=== PATIENT | female | born 1945 | race Caucasian/White ===

== ENCOUNTER 2021-05-01 10:40 | Emergency (ER) | payer OTHER ==
[2021-05-01] MEDS ORDERED: ACETAMINOPHEN 325 MG TABLET ONE (11:45)
[2021-05-01] MEDS ORDERED: IBUPROFEN 400 MG TAB ONE (11:46)
--- NOTE | 2021-05-01 12:25 | RAD REPORT ---
EXAM DESCRIPTION: RAD - Knee Left 3 View - 05/01/2021 11:46 am CLINICAL HISTORY: injury;Pain COMPARISON: No comparisons FINDINGS: Comminuted fracture of the patella is present. Small suprapatellar joint effusion is prese nt. No dislocation evident.
--- NOTE | 2021-05-01 12:41 | RAD REPORT ---
EXAM DESCRIPTION: RAD - Knee Right 3 View - 05/01/2021 12:34 pm CLINICAL HISTORY: fall;Pain COMPARISON: Knee Right 3 View dated 06/02/2019 FINDINGS: Osteopenia is noted. No acute fracture or dislocation is seen. No suprapatellar joint effu edgardo.
--- NOTE | 2021-05-01 12:57 | RAD REPORT ---
EXAM DESCRIPTION: CT - Knee Left Wo Con - 05/01/2021 12:40 pm CLINICAL HISTORY: Trip and fall, knee pain, abnormal plain films COMPARISON: Knee Left 3 View dated 05/01/2021 TECHNIQUE: Axial noncontrast 2 millimeter thick images of the left knee obtained with sagittal and c oronal reformatted images generated and reviewed. All CT scans are performed using dose optimization technique as appropriate and may include automate d exposure control or mA/KV adjustment according to patient size. FINDINGS: Femur, tibia and fibula are intact. Comminuted patella fracture is present. There are 5-6 medium to large patella fracture fragments with innumerable small or punctate fracture fragments along the multiple fracture planes that traverse th e patella. Distraction along the fracture planes is 2-4 mm. No large distracted fracture fragment. Pa tella tendon and quadriceps tendons appear intact. There is a large joint effusion or hemarthrosis. C ontusion and edema changes are seen the anterior to the patella fracture fragments. IMPRESSION: Comminuted patella fracture with 5-6 medium to large sized patella fracture fragments wi th numerous punctate fracture fragments along the multiple fracture planes. Large joint effusion or hemarthrosis. Femur, tibia and fibula are intact.
--- NOTE | 2021-05-01 13:19 | EDPHYS ---
Physician Documentation [facility] Name: Alba Kaur Age: 75 yrs Sex: Female : 1945 Arrival Date: 05/01/2021 Time: 10:54 Bed 15 Private MD: ED Physician Teo Fatima HPI: 05/01 11:30 This 75 yrs old Female presents to ER via EMS with complaints of Knee Injury. cp 11:30 The patient presents with decreased range of motion, an injury, pain, that is acute. cp The complaints affect the left knee. Context: resulted from the patient tripping, over "crate" at work, the patient is not able to bear weight, must have assistance, Problem is a result from a previous injury: No. Onset: The symptoms/episode began/occurred this morning. 11:30 Associated signs and symptoms: Pertinent negatives calf tenderness, fever, numbness, cp warmth, LOC, syncope. Patient reports trip and fall at work this morning over "crate" on ground. Patient reports landing on knees but left knee took most of force. Patient reports unable to bend and/or bear weight on left knee. Historical: - Allergies: 13:44 No Known Allergies; bp - Home Meds: 13:44 metformin 1,000 mg Oral tab 1 tab 2 times per day [Active]; losartan 50 mg oral tab 1 bp tab once daily [Active]; venlafaxine oral [Active]; - PMHx: 13:44 Diabetes mellitus; Hypertensive disorder; Anxiety; bp - Immunization history:: Adult Immunizations up to date. - Social history:: Smoking status: Patient denies any tobacco usage or history of. ROS: 11:35 MS/extremity: Positive for decreased range of motion, pain, swelling, tenderness, of cp the left knee, Negative for deformity, paresthesias. 11:35 Constitutional: Negative for fever. cp 11:35 Neck: Negative for pain with movement, pain at rest. 11:35 Cardiovascular: Negative for chest pain, palpitations. 11:35 Respiratory: Negative for cough, shortness of breath, wheezing. 11:35 Abdomen/GI: Negative for abdominal pain, nausea, vomiting, and diarrhea. 11:35 Back: Negative for pain at rest, pain with movement. 11:35 Neuro: Negative for loss of consciousness, syncope, weakness. 11:35 All other systems are negative. Exam: 11:40 Constitutional: The patient appears in no acute distress, alert, awake, cp non-diaphoretic, non-toxic, well developed, well nourished, uncomfortable. 11:40 Head/Face: Normocephalic, atraumatic. cp 11:40 Neck: ROM/movement: is normal, is supple, without pain, no range of motions limitations. 11:40 Chest/axilla: Inspection: normal. 11:40 Cardiovascular: Rate: normal, Edema: is not appreciated. 11:40 Respiratory: the patient does not display signs of respiratory distress, Respirations: normal, no use of accessory muscles, no retractions, labored breathing, is not present. 11:40 Abdomen/GI: Inspection: abdomen appears normal, Palpation: abdomen is soft and non-tender, in all quadrants. 11:40 Musculoskeletal/extremity: Extremities: grossly normal except: noted in the left knee: abrasion, decreased ROM, pain, swelling, tenderness, noted in the right knee: mild general tenderness to palpation, no evidence of decreased ROM, swelling. 11:40 Neuro: Orientation: to person, place \\T\\ time. Mentation: is normal. Vital Signs: 10:55 BP 157 / 63; Pulse 96; Resp 16; Temp 98; Pulse Ox 98% ; Weight 68.04 kg; Height 5 ft. 9 bp in. (175.26 cm); 13:00 BP 109 / 85; Pulse 94; Resp 16; Pulse Ox 98% ; bp 13:45 BP 111 / 82; Pulse 88; Resp 18; Temp 97.9(O); Pulse Ox 99% on R/A; sl2 10:55 Body Mass Index 22.15 (68.04 kg, 175.26 cm) bp Procedures: 13:25 Splinting: Splint applied to left knee using knee immobilizer, applied by nurse. cp Examined by me, post splint application: neurovascular intact, Patient tolerated well. MDM: 10:56 Patient medically screened. pkl 11:30 Differential diagnosis: dislocation, closed fracture, contusion, abrasion. cp 13:10 Data reviewed: vital signs, nurses notes, radiologic studies, CT scan, plain films. cp 13:10 Test interpretation: by ED physician or midlevel provider: plain radiologic studies. cp 13:17 Counseling: I had a detailed discussion with the patient and/or guardian regarding: the cp historical points, exam findings, and any diagnostic results supporting the discharge/admit diagnosis, radiology results, the need for outpatient follow up, for definitive care, a orthopedic surgeon, to return to the emergency department if symptoms worsen or persist or if there are any questions or concerns that arise at home. 13:17 Response to treatment: the patient's symptoms have markedly improved after treatment, cp and as a result, I will discharge patient. 13:17 ED course: VSS. Patient reports pain improved with meds. Discussed results of radiology cp studies and need for f/u with ortho. Patient instructed to wear immobilizer and not extend left knee. Return to ED worsening symptoms. 05/01 11:25 Order name: XRAY Knee LEFT 3 view; Complete Time: 13:05 cp 05/01 12:05 Order name: Knee Left Wo Con; Complete Time: 13:05 EDMS 05/01 12:06 Order name: XRAY Knee RIGHT 3 view; Complete Time: 13:05 cp 05/01 11:59 Order name: Knee Immobilizer; Complete Time: 13:24 cp Administered Medications: 11:45 Drug: Ibuprofen 600 mg Route: PO; bp 13:24 Follow up: Response: Pain is decreased bp 11:45 Drug: Tylenol 650 mg Route: PO; bp 13:24 Follow up: Response: Pain is decreased bp Disposition: 13:30 Chart complete. cp Disposition Summary: 05/01/21 13:18 Discharge Ordered Location: Home cp Problem: new cp Symptoms: have improved cp Condition: Stable cp Diagnosis - Displaced comminuted fracture of left patella, initial encounter for closed fracturecp Followup: cp - With: Christos Barnett MD - When: 2 - 3 days - Reason: left patella fracture Discharge Instructions: - Discharge Summary Sheet cp - Patellar Fracture, Adult cp Forms: - Medication Reconciliation Form cp - Thank You Letter cp - Antibiotic Education cp - Prescription Opioid Use cp Prescriptions: - Ultracet 37.5-325 mg Oral Tablet - take 1 tablet by ORAL route every 6 hours - for up to 5 days; do not exceed 8 cp tablets per day.; 20 tablet; Refills: 0, Product Selection Permitted - Ibuprofen 800 mg Oral Tablet - take 1 tablet by ORAL route every 8 hours As needed take with food; 30 tablet; cp Refills: 0, Product Selection Permitted Signatures: Dispatcher [employer] EDMS Teo Fatima MD MD pkl Royce Lan PA PA Guillermo Nunes, RN RN bp Corrections: (The following items were deleted from the chart) 12:05 12:01 CT LEFT KNEE WO CONTRAST ordered. EDMS EDMS
--- NOTE | 2021-05-01 13:19 | ER ---
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 bp 10:55 Coronavirus screen: At this time, the client does not indicate any symptoms associated bp with coronavirus-19. Ebola Screen: No symptoms or risks identified at this time. Initial Sepsis Screen: Does the patient meet any 2 criteria? No. Patient's initial sepsis screen is negative. Does the patient have a suspected source of infection? No. Patient's initial sepsis screen is negative. Risk Assessment: Do you want to hurt yourself or someone else? Patient reports no desire to harm self or others. Onset of symptoms is unknown. 10:55 Method Of Arrival: EMS: [facility] bp 10:55 Acuity: FERNIE 3 bp Triage Assessment: 10:55 General: Appears in no apparent distress. uncomfortable, slender, Behavior is bp cooperative, appropriate for age, anxious. Pain: Complains of pain in left knee. EENT: No deficits noted. Neuro: No deficits noted. Cardiovascular: No deficits noted. Respiratory: No deficits noted. GI: No signs and/or symptoms were reported involving the gastrointestinal system. : No signs and/or symptoms were reported regarding the genitourinary system. Derm: No deficits noted. Musculoskeletal: Reports pain in left knee. Injury Description: Deformity sustained to left knee. Historical: - Allergies: 13:44 No Known Allergies; bp - Home Meds: 13:44 metformin 1,000 mg Oral tab 1 tab 2 times per day [Active]; losartan 50 mg oral tab 1 bp tab once daily [Active]; venlafaxine oral [Active]; - PMHx: 13:44 Diabetes mellitus; Hypertensive disorder; Anxiety; bp - Immunization history:: Adult Immunizations up to date. - Social history:: Smoking status: Patient denies any tobacco usage or history of. Screenin:00 Abuse screen: Denies threats or abuse. Denies injuries from another. Nutritional bp screening: No deficits noted. Tuberculosis screening: No symptoms or risk factors identified. Fall Risk None identified. Assessment: 10:55 General: SEE TRIAGE NOTE. bp 13:00 Reassessment: No changes from previously documented assessment. Patient and/or family bp updated on plan of care and expected duration. Pain level reassessed. ALL CURRENT ORDERS COMPLETED. Vital Signs: 10:55 BP 157 / 63; Pulse 96; Resp 16; Temp 98; Pulse Ox 98% ; Weight 68.04 kg; Height 5 ft. 9 bp in. (175.26 cm); 13:00 BP 109 / 85; Pulse 94; Resp 16; Pulse Ox 98% ; bp 13:45 BP 111 / 82; Pulse 88; Resp 18; Temp 97.9(O); Pulse Ox 99% on R/A; sl2 10:55 Body Mass Index 22.15 (68.04 kg, 175.26 cm) bp ED Course: 10:54 Patient arrived in ED. bp 10:55 Arm band placed on. bp 10:56 Teo Fatima MD is Attending Physician. pkl 10:56 Royce Lan PA is PHCP. cp 11:00 Patient has correct armband on for positive identification. Bed in low position. Call bp light in reach. Side rails up X2. 11:46 XRAY Knee LEFT 3 view In Process Unspecified. EDMS 12:10 Guillermo Kaur, RN is Primary Nurse. bp 12:34 XRAY Knee RIGHT 3 view In Process Unspecified. EDMS 12:40 Knee Left Wo Con In Process Unspecified. EDMS 13:00 Crutch training done. Knee immobilizer applied on left knee. bp 13:17 Christos Barnett MD is Referral Physician. cp 13:43 Triage completed. bp 14:16 No provider procedures requiring assistance completed. Patient did not have IV access sl2 during this emergency room visit. Administered Medications: 11:45 Drug: Ibuprofen 600 mg Route: PO; bp 13:24 Follow up: Response: Pain is decreased bp 11:45 Drug: Tylenol 650 mg Route: PO; bp 13:24 Follow up: Response: Pain is decreased bp Outcome: 13:18 Discharge ordered by . cp 14:16 Discharged to home via wheelchair, with crutches. sl2 14:16 Condition: stable 14:16 Discharge instructions given to patient, family, Instructed on discharge instructions, follow up and referral plans. medication usage, Demonstrated understanding of instructions, follow-up care, medications, Prescriptions given X 2. 14:18 Patient left the ED. sl2 Signatures: Dispatcher [employer] EDMS Teo Fatima MD MD pkl Page, Corey, PA PA cp Peltier, Brian, RN RN Kavita Byrd RN RN sl2
[2021-05-01 14:26] VITALS: TEMP 98; O2SAT 98
[2021-05-01 14:28] VITALS: BP 109/85
--- OUTSIDE RECORDS SUMMARY | 2021-05-05 18:03 | XMS REPORT | Continuity of Care Document ---
:1945 Author Organization [facility] t Address [address] [place] [address] Dr. [address] [place] [address] Care Team Providers Name Role Phone Sheldon ALVARADO, Mercedes Attending Clinician Doctor Unassigned, Name Attending Clinician Unavailable Mercedes BALDERAS Attending Clinician Unavailable Pob, Lab Main Attending Clinician Unavailable Kristi Cantu Attending Clinician Unavailable Annemarie DEGROOT, S Attending Clinician Kristi Cantu Admitting Clinician Unavailable Payers Payer Name Policy Type Policy Number Effective Date Expiration Date S ource Problems Condition Condition Condition Status Onset Resolution Last Treating Co mments Source Name Details Category Date Date Treatment Clinician Date Hypothyroi Hypothyroi Disease Active U nivers dism dism ity of (acquired) (acquired) [facility] Hypertensi Hy[facility]i [facility]lipid Hyperlipid Disease Active [facility] Diabetes Diabetes Disease Active [facility] Anxiety Anxiety Disease Active Univers [facility] Allergies, Adverse Reactions, Alerts Allergy Allergy Status Severity Reaction(s) Onset Inactive Treating Comm ents Source Name Type Date Date Clinician No Known DA Active U [facility] Allergie 07-10 00:00: [address] NO KNOWN Drug Active [facility] Social History Social Habit Start Date Stop Date Quantity Comments Source History SDVT University o f Alcohol Std Drinks [facility] History [facility] University o f Alcohol Binge [facility] Sex Assigned At [facility]it [facility] of [facility] Exposure to Unable to assess Univers ity of SARS-CoV-2 (event) [facility] Alcohol intake 2020-01-31 2020-01-31 Ex-drinker University 00:00:00 00:00:00 (finding) [facility] Cigarettes smoked 2020-01-31 2020-01-31 Univers ity of current (pack per 00:00:00 00:00:00 [facility]) - Reported Branch Tobacco use and 2020-01-31 2020-01-31 Never used Universit y of exposure 00:00:00 00:00:00 [facility] History SDOH 2019-06-03 2019-06-03 1 University o f Alcohol Frequency 00:00:00 00:00:00 [facility] History of tobacco 1961-06-23 2002-06-23 Cigarette Smoker University of use 00:00:00 00:00:00 [facility] Smoking Status Start Date Stop Date Source Former smoker 2020-01-31 00:00:00 2020-01-31 00:00:[address] [facility] Never smoker University [facility] Medications Ordered Filled Start Stop Current Ordering Indication Dosage Frequency Signature Comments Components Source Medication Medication Date Date Medication? Clinician (SIG) Name Name VENLAFAXINE 2019-06 Yes [id number] 37.5mg TAKE 1 Univers XR 37.5 mg 1-06 CAPSULE BY ity of 24 hr 00:00: MOUTH [place] capsule 00 DAILY WITH Medica l BREAKFAST. Branch levothyroxi Yes [id number] 88ug Take 1 Univers ne 88 mcg 8-14 tablet by ity o f tablet 00:00: mouth [place] 00 every Medical morning. Branch levothyroxi 2019-0 Yes [id number] 88ug Take 1 Univers ne 88 mcg 8-14 tablet by ity o f tablet 00:00: mouth [place] 00 every Medical morning. Branch levothyroxi Yes [id number] 88ug Take 1 Univers ne 88 mcg 8-14 tablet by ity o f tablet 00:00: mouth [place] 00 every Medical morning. Branch levothyroxi Yes [id number] 88ug Take 1 Univers ne 88 mcg 8-14 tablet by ity o f tablet 00:00: mouth [place] 00 every Medical morning. Branch levothyroxi 2020-0 Yes [id number] 88ug Take 1 Univers ne 88 mcg 8-14 tablet by ity o f tablet 00:00: mouth [place] 00 every Medical morning. Branch levothyroxi 2020-0 Yes [id number] 88ug Take 1 Univers ne 88 mcg 8-14 tablet by ity o f tablet 00:00: mouth [place] 00 every Medical morning. Branch metFORMIN 2020-0 Yes 1000mg Take 1,000 Univers 1,000 mg 8-10 mg by ity of tablet 16:04: mouth [address] [place] [address] ([facility]) Medical times [place] daily with meals. metFORMIN 2020-0 Yes 1000mg Take 1,000 Univers 1,000 mg 8-10 mg by ity of tablet 16:04: mouth [address] [place] [address] ([facility]) Medical times [place] daily with meals. metFORMIN 2020-0 Yes 1000mg Take 1,000 Univers 1,000 mg 8-10 mg by ity of tablet 16:04: mouth [address] [place] [address] ([facility]) Medical times [place] daily with meals. metFORMIN 2020-0 Yes 1000mg Take 1,000 Univers 1,000 mg 8-10 mg by ity of tablet 16:04: mouth [address] [place] [address] ([facility]) Medical times [place] daily with meals. metFORMIN 2020-0 Yes 1000mg Take 1,000 Univers 1,000 mg 8-10 mg by ity of tablet 16:04: [place] [id number] ([facility]) Medical times [place] daily with meals. metFORMIN 2020-0 Yes 1000mg Take 1,000 Univers 1,000 mg 8-10 mg by ity of tablet 16:04: mouth [address] [place] [address] ([facility]) Medical times [place] daily with meals. metFORMIN 2020-0 Yes 1000mg Take 1,000 Univers 1,000 mg 8-10 mg by ity of tablet 16:04: mouth [address] [place] [address] ([facility]) Medical times [place] daily with meals. metFORMIN 2020-0 Yes 1000mg Take 1,000 Univers 1,000 mg 8-10 mg by ity of tablet 16:04: mouth [address] [place] [address] ([facility]) Medical times [place] daily with meals. metFORMIN 2020-0 Yes 1000mg Take 1,000 Univers 1,000 mg 8-10 mg by ity of tablet 16:04: mouth [address] [place] [address] ([facility]) Medical times [place] daily with meals. metFORMIN 2020-0 Yes 1000mg Take 1,000 Univers 1,000 mg 8-10 mg by ity of tablet 16:04: mouth 2 [place] 26 (two) Medical times Branch daily with meals. carvediloL 2020-0 Yes 12.5mg Take 12.5 Univers 12.5 mg 8-10 mg by ity of tablet 15:53: mouth 2 [place] [address] (two) Medical times Branch daily with meals. carvediloL 2020-0 Yes 12.5mg Take 12.5 Univers 12.5 mg 8-10 mg by ity of tablet 15:53: mouth 2 [place] [address] (two) Medical times Branch daily with meals. carvediloL 2020-0 Yes 12.5mg Take 12.5 Univers 12.5 mg 8-10 mg by ity of tablet 15:53: mouth 2 [place] [address] (two) Medical times Branch daily with meals. carvediloL 2020-0 Yes 12.5mg Take 12.5 Univers 12.5 mg 8-10 mg by ity of tablet 15:53: mouth 2 [place] [address] (two) Medical times Branch daily with meals. carvediloL 2020-0 Yes 12.5mg Take 12.5 Univers 12.5 mg 8-10 mg by ity of tablet 15:53: mouth 2 [place] [address] (two) Medical times Branch daily with meals. carvediloL 2020-0 Yes 12.5mg Take 12.5 Univers 12.5 mg 8-10 mg by ity of tablet 15:53: mouth 2 [place] [address] (two) Medical times Branch daily with meals. carvediloL 2020-0 Yes 12.5mg Take 12.5 Univers 12.5 mg 8-10 mg by ity of tablet 15:53: mouth 2 [place] [address] (two) Medical times Branch daily with meals. carvediloL 2020-0 Yes 12.5mg Take 12.5 Univers 12.5 mg 8-10 mg by ity of tablet 15:53: mouth 2 [place] [address] (two) Medical times Branch daily with meals. carvediloL 2020-0 Yes 12.5mg Take 12.5 Univers 12.5 mg 8-10 mg by ity of tablet 15:53: mouth 2 [place] [address] (two) Medical times Branch daily with meals. carvediloL 2020-0 Yes 12.5mg Take 12.5 Univers 12.5 mg 8-10 mg by ity of tablet 15:53: mouth 2 [place] 33 (two) Medical times [place] daily with meals. venlafaxine 2020-0 Yes [id number] 37.5mg Take 1 Univers XR 37.5 mg 8-10 capsule by ity of 24 hr 00:00: mouth [place] capsule 00 daily with Medica l breakfast. [place] venlafaxine 2020-0 Yes [id number] 37.5mg Take 1 Univers XR 37.5 mg 8-10 capsule by ity of 24 hr 00:00: mouth [place] capsule 00 daily with Medica l breakfast. [place] venlafaxine 2020-0 Yes [id number] 37.5mg Take 1 Univers XR 37.5 mg 8-10 capsule by ity of 24 hr 00:00: mouth [place] capsule 00 daily with Medica l breakfast. [place] venlafaxine 2020-0 Yes [id number] 37.5mg Take 1 Univers XR 37.5 mg 8-10 capsule by ity of 24 hr 00:00: mouth [place] capsule 00 daily with Medica l breakfast. [place] venlafaxine 2020-0 Yes [id number] 37.5mg Take 1 Univers XR 37.5 mg 8-10 capsule by ity of 24 hr 00:00: mouth [place] capsule 00 daily with Medica l breakfast. [place] venlafaxine 2020-0 Yes [id number] 37.5mg Take 1 Univers XR 37.5 mg 8-10 capsule by ity of 24 hr 00:00: mouth [place] capsule 00 daily with Medica l breakfast. [place] venlafaxine 2020-0 Yes [id number] 37.5mg Take 1 Univers XR 37.5 mg 8-10 capsule by ity of 24 hr 00:00: mouth [place] capsule 00 daily with Medica l breakfast. [place] venlafaxine 2020-0 Yes [id number] 37.5mg Take 1 Univers XR 37.5 mg 8-10 capsule by ity of 24 hr 00:00: mouth [place] capsule 00 daily with Medica l breakfast. [place] venlafaxine 2020-0 2020- No [id number] 37.5mg Take 1 Univers XR 37.5 mg 8-10 11-06 capsule by it y of 24 hr 00:00: 00:00 mouth [place] capsule 00 :00 daily with Medica l breakfast. [place] mupirocin 2 2018- Yes Univer s % ointment 2-11 ity of 00:00: [place] 00 Medical Branch mupirocin 2 2019-1 Yes Univer s % ointment 2-11 ity of 00:00: [place] 00 Medical Branch mupirocin 2 2019-1 Yes Univer s % ointment 2-11 ity of 00:00: [place] 00 Medical Branch mupirocin 2 2019-1 Yes Univer s % ointment 2-11 ity of 00:00: [place] 00 Medical Branch mupirocin 2 2019-1 Yes Univer s % ointment 2-11 ity of 00:00: [place] 00 Medical Branch mupirocin 2 2019-1 Yes Univer s % ointment 2-11 ity of 00:00: [place] 00 Medical Branch mupirocin 2 2019-1 Yes Univer s % ointment 2-11 ity of 00:00: [place] 00 Medical Branch mupirocin 2 2019-1 Yes Univer s % ointment 2-11 ity of 00:00: [place] 00 Medical Branch mupirocin 2 2019-1 Yes Univer s % ointment 2-11 ity of 00:00: [place] 00 Medical Branch mupirocin 2 2019-1 Yes Univer s % ointment 2-11 ity of 00:00: [place] 00 Medical Branch mupirocin 2 2019-1 Yes Univer s % ointment 2-11 ity of 00:00: [place] 00 Medical Branch mupirocin 2 2019-1 Yes Univer s % ointment 2-11 ity of 00:00: [place] 00 Medical Branch mupirocin 2 2019-1 Yes Univer s % ointment 2-11 ity of 00:00: [place] 00 Medical Branch mupirocin 2 2019-1 Yes Univer s % ointment 2-11 ity of 00:00: [place] 00 Medical Branch mupirocin 2 2019-1 Yes Univer s % ointment 2-11 ity of 00:00: [place] 00 Medical Branch mupirocin 2 2019-1 Yes Univer s % ointment 2-11 ity of 00:00: [place] 00 Medical Branch mupirocin 2 2019-1 Yes Univer s % ointment 2-11 ity of 00:00: [place] 00 Medical Branch mupirocin 2 2019-1 Yes Univer s % ointment 2-11 ity of 00:00: [place] [facility] XARELTO 20 2018-06 Yes TK 1 T PO Un mark mg tablet 1-27 ONCE DAILY ity of 00:00: [facility] Branch XARELTO 20 2018-06 Yes TK 1 T PO Un mark mg tablet 1-27 ONCE DAILY ity of 00:00: [facility] XARELTO 2018-06 Yes TK 1 T PO Un mark mg tablet 1-27 ONCE DAILY ity of 00:00: [facility] XARELTO 2018-06 Yes TK 1 T PO Un mark mg tablet 1-27 ONCE DAILY ity of 00:00: [facility] Branch XARELTO 20 2018-06 Yes TK 1 T PO Un mark mg tablet 1-27 ONCE DAILY ity of 00:00: [facility] XARELTO 2018-06 Yes TK 1 T PO Un mark mg tablet 1-27 ONCE DAILY ity of 00:00: [facility] XARELTO 2018-06 Yes TK 1 T PO Un mark mg tablet 1-27 ONCE DAILY ity of 00:00: [facility] XARELTO 2018-06 Yes TK 1 T PO Un mark mg tablet 1-27 ONCE DAILY ity of 00:00: [facility] Branch XARELTO 2018-06 Yes TK 1 T PO Un mark mg tablet 1-27 ONCE DAILY ity of 00:00: [facility] XARELTO 2018-06 Yes TK 1 T PO Un mark mg tablet 1-27 ONCE DAILY ity of 00:00: [facility] Branch XARELTO 20 2018-06 Yes TK 1 T PO Un mark mg tablet 1-27 ONCE DAILY ity of 00:00: [facility] XARELTO 20 2018-06 Yes TK 1 T PO Un mark mg tablet 1-27 ONCE DAILY ity of 00:00: [facility] Branch XARELTO 20 2018-06 Yes TK 1 T PO Un mark mg tablet 1-27 ONCE DAILY ity of 00:00: [facility] XARELTO 20 2018-06 Yes TK 1 T PO Un mark mg tablet 1-27 ONCE DAILY ity of 00:00: [facility] Branch XARELTO 20 2019-1 Yes TK 1 T PO Un mark mg tablet 1-27 ONCE DAILY ity of 00:00: [facility] XARELTO 20 2018- Yes TK 1 T PO Un mark mg tablet 1-27 ONCE DAILY ity of 00:00: [facility] XARELTO 20 2018-06 Yes TK 1 T PO Un mark mg tablet 1-27 ONCE DAILY ity of 00:00: [facility] XARELTO 20 2018-06 Yes TK 1 T PO Un mark mg tablet 1-27 ONCE DAILY ity of 00:00: [facility] levothyroxi 2019- Yes TK 1 T PO U nivers ne 88 mcg 1-06 QAM IN THE ity of tablet 00:00: MORNING [address] simvastatin 2019- Yes TK 1 T PO U nivers 40 mg 1-06 QHS ity of tablet 00:00: [address] levothyroxi 2019- Yes TK 1 T PO U nivers ne 88 mcg 1-06 QAM IN THE ity of tablet 00:00: MORNING [address] simvastatin 2019- Yes TK 1 T PO U nivers 40 mg 1-06 QHS ity of tablet 00:00: [address] simvastatin 2019- Yes TK 1 T PO U nivers 40 mg 1-06 QHS ity of tablet 00:00: [address] levothyroxi 2019- Yes TK 1 T PO U nivers ne 88 mcg 1-06 QAM IN THE ity of tablet 00:00: MORNING [address] simvastatin 2019- Yes TK 1 T PO U nivers 40 mg 1-06 QHS ity of tablet 00:00: [address] simvastatin 2019- Yes TK 1 T PO U nivers 40 mg 1-06 QHS ity of tablet 00:00: [address] simvastatin 2019- Yes TK 1 T PO U nivers 40 mg 1-06 QHS ity of tablet 00:00: [address] levothyroxi 2019- Yes TK 1 T PO U nivers ne 88 mcg 1-06 QAM IN THE ity of tablet 00:00: MORNING [address] simvastatin 2019- Yes TK 1 T PO U nivers 40 mg 1-06 QHS ity of tablet 00:00: [address] simvastatin 2019- Yes TK 1 T PO U nivers 40 mg 1-06 QHS ity of tablet 00:00: [address] simvastatin 2019- Yes TK 1 T PO U nivers 40 mg 1-06 QHS ity of tablet 00:00: [address] simvastatin 2019- Yes TK 1 T PO U nivers 40 mg 1-06 QHS ity of tablet 00:00: [address] simvastatin 2019- Yes TK 1 T PO U nivers 40 mg 1-06 QHS ity of tablet 00:00: [address] levothyroxi 2019- Yes TK 1 T PO U nivers ne 88 mcg 1-06 QAM IN THE ity of tablet 00:00: MORNING [address] simvastatin 2019- Yes TK 1 T PO U nivers 40 mg 1-06 QHS ity of tablet 00:00: [address] levothyroxi 2018- Yes TK 1 T PO U nivers ne 88 mcg 1-06 QAM IN THE ity of tablet 00:00: MORNING [address] simvastatin 2019- Yes TK 1 T PO U nivers 40 mg 1-06 QHS ity of tablet 00:00: [address] levothyroxi 2019- Yes TK 1 T PO U nivers ne 88 mcg 1-06 QAM IN THE ity of tablet 00:00: MORNING [address] simvastatin 2019- Yes TK 1 T PO U nivers 40 mg 1-06 QHS ity of tablet 00:00: [address] levothyroxi 2019- Yes TK 1 T PO U nivers ne 88 mcg 1-06 QAM IN THE ity of tablet 00:00: MORNING [address] simvastatin 2019- Yes TK 1 T PO U nivers 40 mg 1-06 QHS ity of tablet 00:00: [address] levothyroxi 2019- Yes TK 1 T PO U nivers ne 88 mcg 1-06 QAM IN THE ity of tablet 00:00: MORNING [address] simvastatin 2019- Yes TK 1 T PO U nivers 40 mg 1-06 QHS ity of tablet 00:00: [address] levothyroxi 2019- Yes TK 1 T PO U nivers ne 88 mcg 1-06 QAM IN THE ity of tablet 00:00: MORNING [address] simvastatin 2019- Yes TK 1 T PO U nivers 40 mg 1-06 QHS ity of tablet 00:00: [place] [address] Medical Branch levothyroxi 2019- Yes TK 1 T PO U nivers ne 88 mcg 1-06 QAM IN THE ity of tablet 00:00: MORNING [address] levothyroxi 2019- Yes TK 1 T PO U nivers ne 88 mcg 1-06 QAM IN THE ity of tablet 00:00: MORNING [address] simvastatin 2019- Yes TK 1 T PO U nivers 40 mg 1-06 QHS ity of tablet 00:00: [address] levothyroxi 2019- 2020- No TK 1 T PO Univers ne 88 mcg 1-06 08-14 QAM IN THE ity of tablet 00:00: 00:00 MORNING [place] 00 :00 [facility] losartan 2019- Yes TK 1 T PO Univ ers 100 mg 0-10 Q D ity of tablet 00:00: [address] losartan 2019- Yes TK 1 T PO Univ ers 100 mg 0-10 Q D ity of tablet 00:00: [address] losartan 2019- Yes TK 1 T PO Univ ers 100 mg 0-10 Q D ity of tablet 00:00: [address] losartan 2019- Yes TK 1 T PO Univ ers 100 mg 0-10 Q D ity of tablet 00:00: [address] losartan 2019- Yes TK 1 T PO Univ ers 100 mg 0-10 Q D ity of tablet 00:00: [place] [address] Medical [place] losartan 2019- Yes TK 1 T PO Univ ers 100 mg 0-10 Q D ity of tablet 00:00: [place] [address] Medical Branch losartan 2019- Yes TK 1 T PO Univ ers 100 mg 0-10 Q D ity of tablet 00:00: [address] losartan 2019- Yes TK 1 T PO Univ ers 100 mg 0-10 Q D ity of tablet 00:00: [address] losartan 2019- Yes TK 1 T PO Univ ers 100 mg 0-10 Q D ity of tablet 00:00: [place] [address] Medical [place] losartan 2019- Yes TK 1 T PO Univ ers 100 mg 0-10 Q D ity of tablet 00:00: [place] 00 Medical Branch losartan 2019- Yes TK 1 T PO Univ ers 100 mg 0-10 Q D ity of tablet 00:00: [place] 00 Medical Branch losartan 2019- Yes TK 1 T PO Univ ers 100 mg 0-10 Q D ity of tablet 00:00: [place] Medical Branch losartan 2019- Yes TK 1 T PO Univ ers 100 mg 0-10 Q D ity of tablet 00:00: [place] Medical Branch losartan 2019- Yes TK 1 T PO Univ ers 100 mg 0-10 Q D ity of tablet 00:00: [place] Medical Branch losartan 2018- Yes TK 1 T PO Univ ers 100 mg 0-10 Q D ity of tablet 00:00: [place] Medical Branch losartan 2018- Yes TK 1 T PO Univ ers 100 mg 0-10 Q D ity of tablet 00:00: [place] Medical Branch losartan 2018- Yes TK 1 T PO Univ ers 100 mg 0-10 Q D ity of tablet 00:00: [place] Medical Branch losartan 2018- Yes TK 1 T PO Univ ers 100 mg 0-10 Q D ity of tablet 00:00: [place] Medical Branch metoprolol 2018- Yes TK 1 T PO Un mark succinate 0-02 QD ity of XL 100 mg 00:00: [place] 24 hr Medical tablet Branch metoprolol 2018- Yes TK 1 T PO Un mark succinate 0-02 QD ity of XL 100 mg 00:00: [place] 24 hr Medical tablet Branch metoprolol 2018- Yes TK 1 T PO Un mark succinate 0-02 QD ity of XL 100 mg 00:00: [place] 24 hr Medical tablet Branch metoprolol 2019- Yes TK 1 T PO Un mark succinate 0-02 QD ity of XL 100 mg 00:00: [place] 24 hr Medical tablet Branch metoprolol 2018- Yes TK 1 T PO Un mark succinate 0-02 QD ity of XL 100 mg 00:00: [place] 24 hr Medical tablet Branch metoprolol 2018- Yes TK 1 T PO Un mark succinate 0-02 QD ity of XL 100 mg 00:00: [place] 24 hr Medical tablet Branch metoprolol 2018-06 Yes TK 1 T PO Un mark succinate 0-02 QD ity of XL 100 mg 00:00: [place] 24 hr Medical tablet Branch metoprolol 2018-1 Yes TK 1 T PO Un mark succinate 0-02 QD ity of XL 100 mg 00:00: 24 hr Medical tablet Branch metoprolol 2019 Yes TK 1 T PO Un mark succinate 0-02 QD ity of XL 100 mg 00:00: [place] 24 hr Medical tablet Branch metoprolol 2018-06 Yes TK 1 T PO Un mark succinate 0-02 QD ity of XL 100 mg 00:00: [place] hr Medical tablet Branch metoprolol 2018-06 Yes TK 1 T PO Un mark succinate 0-02 QD ity of XL 100 mg 00:00: [place] 24 hr Medical tablet Branch metoprolol 2018-06 Yes TK 1 T PO Un mark succinate 0-02 QD ity of XL 100 mg 00:00: [place] hr Medical tablet Branch metoprolol 2018-06 Yes TK 1 T PO Un mark succinate 0-02 QD ity of XL 100 mg 00:00: [place] hr Medical tablet Branch metoprolol 2018-06 Yes TK 1 T PO Un mark succinate 0-02 QD ity of XL 100 mg 00:00: [place] hr Medical tablet Branch metoprolol 2018-06 Yes TK 1 T PO Un mark succinate 0-02 QD ity of XL 100 mg 00:00: [place] 24 hr Medical tablet Branch metoprolol 2018-06 Yes TK 1 T PO Un mark succinate 0-02 QD ity of XL 100 mg 00:00: [place] hr Medical tablet Branch metoprolol 2018-06 Yes TK 1 T PO Un mark succinate 0-02 QD ity of XL 100 mg 00:00: [place] hr Medical tablet Branch metoprolol 2018-06 Yes TK 1 T PO Un mark succinate 0-02 QD ity of XL 100 mg 00:00: [place] 24 hr Medical tablet Branch Vital Signs Vital Name Observation Time Observation Value Comments Source Systolic blood 2020-01-31 15:04:00 167 mm[Hg] Univer sity of pressure [facility] Diastolic blood 2020-01-31 15:04:00 86 mm[Hg] Unive rsity of pressure [facility] Heart rate 2020-01-31 15:03:00 82 /min [facility] Body temperature 2020-01-31 15:03:00 35.[address] [facility] Respiratory rate 2020-01-31 15:03:00 20 /min Univ ersity of [place] Medical [place] Body height 2020-01-31 15:03:00 175.3 cm Universi ty of [place] [facility] Body weight 2020-01-31 15:03:00 71.668 kg Universi ty of [place] [facility] BMI 2020-01-31 15:03:00 23.33 kg/m2 Universi ty of [facility] Branch Oxygen saturation in 2020-01-31 15:03:00 95 /min University of Arterial blood by [facility] Pulse oximetry Branch Systolic blood 2019-07-15 18:59:00 121 mm[Hg] Univer sity of pressure [facility] Diastolic blood 2019-07-15 18:59:00 67 mm[Hg] Unive rsity of pressure [facility] Heart rate 2019-07-15 18:59:00 80 /min Universi ty of [place] [facility] [place] Body height 2019-07-15 18:59:00 172.7 cm Universi ty of [place] Medical [place] Body weight 2019-07-15 18:59:00 73.936 kg Universi ty of [place] [facility] BMI 2019-07-15 18:59:00 24.78 kg/m2 Universi ty of [place] [facility] Systolic blood 2019-07-15 18:59:00 121 mm[Hg] Univer sity of pressure [facility] Branch Diastolic blood 2019-07-15 18:59:00 67 mm[Hg] Unive rsity of pressure [facility] Heart rate 2019-07-15 18:59:00 80 /min Universi ty of [facility] Body height 2019-07-15 18:59:00 172.7 cm Universi ty of [place] [facility] Body weight 2019-07-15 18:59:00 73.936 kg Universi ty of [place] [facility] BMI 2019-07-15 18:59:00 24.78 kg/m2 [facility] ty of [facility] Branch Procedures Procedure Date / Time Performing Clinician Source Performed REFERRAL- 2020-04-13 05:01:00 [facility] Name Medical Branch VITAMIN B12, LEVEL 2020-01-31 17:09:00 [facility]el Balderas [facility] 2020-01-31 17:09:00 Chantel Balderas [facility] ity of [place] A Medical Branch FREE T4 2020-01-31 17:09:00 Chantel Balderas [facility] A Medical Branch THYROID STIMULATING 2020-01-31 17:09:00 Chantel Balderas [facility] HORMONE Medical Branch COMP. METABOLIC PANEL 2020-01-31 17:09:00 Chantel Balderas [facility] ([id number]) A Medical Branch LIPID PANEL 2020-01-31 17:09:00 Chantel Balderas [facility] ([id number])(TOTAL A Medical Branch CHOLESTEROL, TRIGLYCERIDES, HDL) CBC WITH DIFF 2020-01-31 17:09:00 BalderasChantel manning [facility] Medical [place] GLYCOSYLATED HEMOGLOBIN 2020-01-31 17:09:00 Balderas, [facility] (A1C) [facility] HCV ANTIBODY 2020-01-31 17:09:00 Chantel Balderas [facility] Medical Branch HIGH SENSITIVITY CRP 2020-01-31 17:09:00 [facility] Branch HOMOCYSTEINE 2020-01-31 17:09:00 Chantel Balderas [facility] Medical Branch VITAMIN D, 25-OH 2020-01-31 17:09:00 Chantel Balderas [facility] Medical Branch FREE T3 2020-01-31 17:09:00 Chantel Balderas [facility] Medical [place] ASSIGNMENT OF BENEFITS 2020-01-31 16:43:42 Doctor Unassigned, No [facility] Name Medical Branch REFERRAL- 2019-08-26 06:01:00 Doctor Unassigned, No [facility] REQUEST/RESPONSE Name Medical Branch REFERRAL- 2019-08-05 06:01:00 Doctor Unassigned, No [facility] REQUEST/RESPONSE Name Medical Branch XR WRIST <3 VW RIGHT 2019-07-15 19:00:31 Alejandro Sharpe [facility] Medical [place] Encounters Start End Encounter Admission Attending Care Care Encounter Source Date/Time Date/Time Type Type Clinicians Facility Department ID 2020-11-14 2020-11-14 Outpatient [facility] [id number] [facility] 2020-08-15 2020-08-15 Outpatient [facility] [id number] [facility] 2020-06-02 2020-06-02 [facility] [id number] 2020-05-25 2020-05-25 Outpatient [facility] [id number] [facility] 2020-04-25 2020-04-25 Refill [facility] 1.2.840.114 [id number] Univers 00:00:00 00:00:00 Chantel Banks [id number] [place] [phone] [address] 2020-04-13 2020-04-13 Telephone [facility] 1.2.840.114 [id number] Univers 00:00:00 00:00:00 Chantel Banks [id number] [place] [phone] [address] 2020-04-13 2020-04-13 Orders Doctor BRAY 1.2.840.114 [id number] Univers 00:00:00 00:00:00 Only Unassigned, MAR[facility]ANGEL [id number] [facility] 4.2.7.2.686 Sushant as [phone] [address] 2020-04-06 2020-04-06 Outpatient [facility] [id number] 24Q-20 Univers 13:00:00 13:00:00 CHANTEL [id number] albert [facility] 2020-04-06 2020-04-06 [id number] Univers 13:00:00 13:00:00 CHANTEL price [facility] 2020-02-25 2020-02-25 Outpatient Cintia BALDERAS [facility] [id number] 24Q-20 Univers 15:20:00 15:20:00 CHANTEL ity [facility] 2020-02-25 2020-02-25 Outpatient Cintia BALDERAS [facility] [id number] Univers 15:20:00 15:20:00 CHANTEL ity [facility] 2020-02-23 2020-02-23 [facility]840.114 7 [id number] Univers 00:00:00 00:00:00 Chanteljairo Jacint[place] 350.1.13.10 [place] [phone] [address] 2020-02-22 2020-02-22 Outpatient Cintia BALDERAS [place] [id number] 24Q-20 Univers 16:20:00 16:20:00 [facility] 2020-02-22 [facility] [id number] Univers 16:20:00 16:20:00 [facility] 2020-02-10 2020-02-10 [place] [id number] 24Q-20 Univers 16:20:00 16:20:00 [facility] 2020-02-10 2020-02-10 [facility] [id number] Univers 16:20:00 16:20:00 [facility] 2020-02-10 2020-02-10 [facility] ..840.114 [id number] Univers 00:00:00 00:00:00 Cahntel Jacintoton [id number] [place] [phone] [address] 2020-02-04 2020-02-04 Case Balderas, [facility] .2.840.114 [id number] Univers 00:00:00 00:00:00 Management Chantel A [place] [id number] [place] [phone] [facility] [facility] 231 [facility] 2020-01-31 2020-01-31 And Taxi Instructor Bus Trolley [facility] Main [facility] 1.2.8 40.114 [id number] Univers 11:42:35 11:57:35 Visit Chantel Balderas 350.1. 13.10 it[place] [phone] [facility] 353 [facility] 2020-01-31 2020-01-31 Office [facility] 1.2.840.114 [id number] Univers 09:52:31 11:08:26 Visit Chantel Banks [id number] [place] [phone] [facility] 231 [facility] 2020-01-31 2020-01-[address] [facility] [id number] 24Q-20 Univers 09:40:00 09:40:00 CHANTEL [id number] ity of [facility] 2020-01-31 2020-01-[address] [facility] [id number] Univers 09:40:00 09:40:[address] [facility] 2020-01-31 2020-01-31 Orders Doctor BRAY 1.2.840.114 [id number] Univers 00:00:00 00:00:00 Only Unassigned, MARIANGEL 350.1.13.10 [place] [facility] 4.2.7.2.686 Sushant as [phone] [address] 2019-08-27 2019-08-27 Telephone [facility] 1.2.840.114 [id number] Univers 00:00:00 00:00:00 Chantel Banks [id number] [place] [phone] [facility] 231 [facility] 2019-08-26 2019-08-26 Orders Doctor BRAY 1.2.840.114 [id number] Univers 00:00:00 00:00:00 Only Unassigned, MARIANGEL 350.1.13.10 [place] [facility] 4.2.7.2.686 Sushant as [phone] [address] 2019-08-23 2019-08-23 Outpatient Pepper, [facility] [id number] [facility] 09:00:00 09:00:00 Skinny [id number] [facility] 2019-08-19 2019-08-19 Outpatient Pepper, [facility] [id number] [facility] 13:00:00 13:00:00 Skinny [id number] [facility] 2019-08-06 2019-08-06 Telephone [facility] 1.2.840.114 [id number] 00:00:00 00:00:00 Chantel Banks 350.1.13.10 [place] 4.2.7.2.686 Professio [phone] [address] 2019-08-06 2019-08-06 Telephone [facility] 1.2.840.114 [id number] Univers 00:00:00 00:00:00 Chantel Banks 350.1.13.10 [place] [phone] [place] dical [address] 2019-08-05 2019-08-05 Orders Doctor KATARINA 1.2.840.114 [id number] Univers 00:00:00 00:00:00 Only Unassigned, MARIANGEL 350.1.13.10 [place] [facility] 4.2.7.2.686 Sushant as [phone] [address] 2019-07-15 2019-07-15 [facility] 1.2.840.114 [id number] 13:00:00 23:59:00 Encounter Alejandro S Health 350.1.13.10 Surgical 4.2.7.2.686 Specialti [phone] [address] [place] 2019-07-15 2019-07-15 [facility] 1.2.840.114 [id number] Univers 13:00:00 23:59:00 Encounter Alejandro S Health 350.1.13.10 ity of Surgical 4.2.7.2.686 Sushant as Specialti [phone] [place] dical es 809 [facility] 2019-07-15 2019-07-[address] [facility] 1.2.840.114 [id number] 12:38:26 12:53:26 Visit Alejandro S Health 350.1.13.10 Surgical 4.2.7.2.686 Specialti [phone] es 198 [place] 2019-07-15 2019-07-[address] [facility] 1.2.840.114 [id number] [facility] 12:38:26 12:53:26 Visit Alejandro S Health 350.1.13.10 it y of Surgical 4.2.7.2.686 Sushant as Specialti [phone] [place] dical es 198 [facility] 2019-07-15 2019-07-[address] [facility] 1.2.840.114 [id number] 00:00:00 00:00:00 (Out) Alejandro S Health 350.1.13.10 Surgical 4.2.7.2.686 Specialti [phone] es [address] [place] 2019-07-15 2019-07-15 [facility] 1.2.840.114 [id number] Univers 00:00:00 00:00:00 (Out) Alejandro S Health 350.1.13.10 it y of Surgical 4.2.7.2.686 Sushant as Specialti [phone] [place] dicme es 198 [facility] Results Test Description Test Time Test Comments Results Result Comments Source HIGH SENSITIVITY CRP 2020-02-01 14:23:00 Test Item Value Reference Range Interpretation Comme nts HS CRP (test code = 7088721636) 0.51 mg/dL <0.74 Lab Interpretation (test code = 86604-2) Normal [facility], TXHIGH SENSITIVITY [id number] 14:23:00 Test Item Value Reference Range Interpretation Comments HS CRP (test code = 8252931376) 0.51 mg/dL <0.74 Lab Interpretation (test code = Normal 58594-2) [facility], TXHCV [id number] 21:24:00 Test Item Value Reference Range Interpretation Comments HCV Ab (test code = 14095-4) Negative HCV Semi-Quantitative (test code = 43876-1) [facility], TXHCV [id number] 21:24:00 Test Item Value Reference Range Interpretation Comments HCV Ab (test code = 27647-5) Negative HCV Semi-Quantitative (test code = 36019-4) [facility], TXVITAMIN B12, [id number] 21:20:00 Test Item Value Reference Range Interpretation Comments VIT B12 (test code = 186 pg/mL 240-930 L 2919627306) MARCELLE (test code = MARCELLE) Biotin has been reported to cause a positive bias, interpret results relative to patient's use of biotin. Lab Interpretation (test Abnormal code = 06804-4) [facility], TXFOLATE2020-08-10 21:20:00 Test Item Value Reference Range Interpretation Comments FOLATE SER (test code = 13.3 ng/mL 3-20 3738262715) Lab Interpretation (test code = Normal 37773-0) [facility], TXVITAMIN B12, [id number] 21:20:00 Test Item Value Reference Range Interpretation Comments VIT B12 (test code = 186 pg/mL 240-930 L 1046610537) MARCELLE (test code = MARCELLE) Biotin has been reported to cause a positive bias, interpret results relative to patient's use of biotin. Lab Interpretation (test Abnormal code = 46355-9) [facility], TXFOLATE2020-08-10 21:20:00 Test Item Value Reference Range Interpretation Comments FOLATE SER (test code = 13.3 ng/mL 3-20 0217555245) Lab Interpretation (test code = Normal 93202-7) [facility], TXVITAMIN D, [id number] 20:37:00 Test Item Value Reference Range Interpretation Comments VIT D 25OH (test code = 29 ng/mL 25-80 47258-1) MARCELLE (test code = MARCELLE) Deficiency: <20 ng/mLInsufficiency : 20-24 ng/mLOptimal: 25-80 ng/mL Lab Interpretation (test Normal code = 83690-9) [facility], TXVITAMIN D, [id number] 20:37:00 Test Item Value Reference Range Interpretation Comments VIT D 25OH (test code = 29 ng/mL 25-80 16646-8) MARCELLE (test code = MARCELLE) Deficiency: <20 ng/mLInsufficiency : 20-24 ng/mLOptimal: 25-80 ng/mL Lab Interpretation (test Normal code = 22067-9) [facility], TXHOMOCYSTEINE2020-08-10 20:19:00 Test Item Value Reference Range Interpretation Comments Homocysteine (test code = 9.1 umol/L 4.7-12.6 6806542167) Lab Interpretation (test code = Normal 02587-7) [facility], TXHOMOCYSTEINE2020-08-10 20:19:00 Test Item Value Reference Range Interpretation Comments Homocysteine (test code = 9.1 umol/L 4.7-12.6 7417629945) Lab Interpretation (test code = Normal 35611-6) [facility], TXGLYCOSYLATED HEMOGLOBIN (A1C)2020-01-31 18:38:00 Test Item Value Reference Range Interpretation Comments HGB A1C (test code = 7.0 % 4-6 H 4548-4) MARCELLE (test code = MARCELLE) %A1C (NGSP) Interpretation (ADA)4.8-5.6 ? ? Normal or (Non-Diabetic Range)5.7-6.4 ? ? Increased Risk (Pre-Diabetic)>6.5 ?Diabetes Indicated Lab Interpretation Abnormal (test code = 12430-6) [facility], TXGLYCOSYLATED HEMOGLOBIN (A1C)2020-01-31 18:38:00 Test Item Value Reference Range Interpretation Comments HGB A1C (test code = 7.0 % 4-6 H 4548-4) MARCELLE (test code = MARCELLE) %A1C (NGSP) Interpretation (ADA)4.8-5.6 ? ? Normal or (Non-Diabetic Range)5.7-6.4 ? ? Increased Risk (Pre-Diabetic)>6.5 ?Diabetes Indicated Lab Interpretation Abnormal (test code = 38735-2) [facility], TXTHYROID STIMULATING [id number] 18:31:00 Test Item Value Reference Range Interpretation Comments TSH (test code = See_Comment H [Automated message] 1062175938) The system [employer] generated this result transmitted ref erence range: 0.45 - 4 .70 mIU/L. The refe rence range was not u sed to interpret this result as normal/abnor mal. Lab Interpretation (test Abnormal code = 01850-5) [facility], TXTHYROID STIMULATING [id number] 18:31:00 Test Item Value Reference Range Interpretation Comments TSH (test code = See_Comment H [Automated message] 0272213745) The system [employer] generated this result transmitted ref erence range: 0.45 - 4 .70 mIU/L. The refe rence range was not u sed to interpret this result as normal/abnor mal. Lab Interpretation (test Abnormal code = 20286-9) [facility] [id number] 18:17:00 Test Item Value Reference Range Interpretation Comments FREE T4 (test code = See_Comment L [Autom ated message] 6696932289) The system [employer] generated this result transmitted ref erence range: 0.78 - 2 .20 ng/dL:. The ref erence range was not u sed to interpret this result as normal/abnor mal. Lab Interpretation (test Abnormal code = 97278-7) [facility] [id number] 18:17:00 Test Item Value Reference Range Interpretation Comments FREE T3 (test code = 3142497776) 2.55 pg/mL 2.77-5.27 L Lab Interpretation (test code = Abnormal 60881-7) [facility] [id number] 18:17:00 Test Item Value Reference Range Interpretation Comments FREE T4 (test code = See_Comment L [Autom ated message] 6646315900) The system [employer] generated this result transmitted ref erence range: 0.78 - 2 .20 ng/dL:. The ref erence range was not u sed to interpret this result as normal/abnor mal. Lab Interpretation (test Abnormal code = 25637-2) [facility] [id number] 18:17:00 Test Item Value Reference Range Interpretation Comments FREE T3 (test code = 3291869652) 2.55 pg/mL 2.77-5.27 L Lab Interpretation (test code = Abnormal 04940-9) [facility] WITH [id number] 18:04:00 Test Item Value Reference Range Interpretation Comments WBC (test code = See_Comment [Automated message] 6690-2) The system [employer] generated this result transmitted ref erence range: 4.30 - 1 1.10 10*3/?L. The re ference range was not u sed to interpret this result as normal/abnor mal. RBC (test code = See_Comment [Automated message] 159-8) The system [employer] generated this result transmitted ref erence range: 3.93 - 5 .25 10*6/?L. The re ference range was not u sed to interpret this result as normal/abnor mal. HGB (test code = 13.3 g/dL 11.6-15 718-7) HCT (test code = 41.2 % 35.7-45.2 4544-3) MCV (test code = 87.8 fL 80.6-95.5 787-2) MCH (test code = 28.4 pg 25.9-32.8 785-6) MCHC (test code = 32.3 g/dL 31.6-35.1 786-4) RDW-SD (test code 42.1 fL 39-49.9 = 78783-5) RDW-CV (test code 13.2 % 12-15.5 = 788-0) PLT (test code = See_Comment [Automated message] 777-3) The system [employer] generated this result transmitted ref erence range: 166 - 35 8 10*3/?L. The re ference range was not u sed to interpret this result as normal/abnor mal. MPV (test code = 11.2 fL 9.5-12.9 66168-8) NRBC/100 WBC (test See_Comment [Automat ed message] code = 3404566849) The syste m which generated this result transmitted ref erence range: 0.0 - 10 .0 /100 WBCs. The refer ence range was not u sed to interpret this result as normal/abnor mal. NRBC x10^3 (test <0.01 See_Comment [Automated message] code = 1876458179) The syste m which generated this result transmitted ref erence range: 10*3/?L. The reference range was not used to interpr et this result as normal/abnormal . GRAN MAT (NEUT) % 67.8 % (test code = 770-8) IMM GRAN % (test 0.50 % code = 1997413614) LYMPH % (test code 23.0 % = 736-9) MONO % (test code 7.8 % = 5905-5) EOS % (test code = 0.5 % 713-8) BASO % (test code 0.4 % = 706-2) GRAN MAT 5.57 10*3/uL 1.88-7.09 x10^3(ANC) (test code = 4391244311) IMM GRAN x10^3 0.04 10*3/uL 0-0.06 (test code = 0625906526) LYMPH x10^3 (test 1.89 10*3/uL 1.32-3.29 code = 731-0) MONO x10^3 (test 0.64 10*3/uL 0.33-0.92 code = 742-7) EOS x10^3 (test 0.04 10*3/uL 0.03-0.39 code = 711-2) BASO x10^3 (test 0.03 10*3/uL 0.01-0.07 code = 704-7) [facility]. METABOLIC PANEL (53870)2020-01-31 18:04:00 Test Item Value Reference Range Interpretation Comments NA (test code = 141 mmol/L 135-145 6931873290) K (test code = 3.7 mmol/L 3.5-5 2667163552) CL (test code = 102 mmol/L 98-108 7330708269) CO2 TOTAL (test code = 28 mmol/L 23-31 9719594793) AGAP (test code = 2-16 1105159961) BUN (test code = 14 mg/dL 7-23 5212460523) GLUCOSE (test code = 146 mg/dL 70-110 H 0841384753) CREATININE (test code = 0.68 mg/dL 0.5-1.04 8446696056) TOTAL BILI (test code = 0.6 mg/dL 0.1-1.2 8237224405) CALCIUM (test code = 10.0 mg/dL 8.6-10.6 6385931322) T PROTEIN (test code = 8.2 g/dL 6.3-8.2 8417869117) ALBUMIN (test code = 4.9 g/dL 3.5-5 4671644722) ALK PHOS (test code = 80 U/L 34-122 9212172559) ALTv (test code = 15 U/L 5-35 1742-6) AST(SGOT) (test code = 22 U/L 13-40 4296936118) eGFR Calculation mL/min/1.73m2 (Non-) (test code = 3478553002) eGFR Calculation mL/min/1.73m2 () (test code = 7914444958) MARCELLE (test code = MARCELLE) Association of Glomerular Filtration Rate (GFR) and Staging of Kidney Disease* + --+ --+ ------+| GFR (mL/min/1.73 m2) ?| With Kidney Damage ?| ?Without Kidney Damage+ --------+ --------+ +| ?>90 ?| ?Stage one ?| ? Normal ?+ ---+ ---+ -------+| ?60-89 ?| ?Stage two ?| ? Decreased GFR ? + --+ --+ ------+| ?30-59 ?| ?Stage three ?| ? Stage three ? + --+ --+ ------+| ?15-29 ?| ?Stage four ? | ? Stage four ?+ ---+ ---+ -------+| ?<15 (or dialysis) ? ?| ?Stage five ? | ? Stage five ?+ ---+ ---+ -------+ *Each stage assumes the associated GFR level has been in effect for at least three months. ?Stages 1 to 5, with or without kidney disease, indicate chronic kidney disease. Notes: Determination of stages one and two (with eGFR >59mL/min/1.73 m2) requires estimation of kidney damage for at least three months as defined by structural or functional abnormalities of the kidney, manifested by either:Pathological abnormalities or Markers of kidney damage (including abnormalities in the composition of the blood or urine or abnormalities in imaging tests). Lab Interpretation Abnormal (test code = 61994-7) [facility] (55433)(TOTAL CHOLESTEROL, TRIGLYCERIDES, HDL)2020-01-31 18:04:00 Test Item Value Reference Range Interpretation Comments CHOL (test code = 277 mg/dL 120-200 H 3289162073) HDL (test code = 46 mg/dL >50 L 9443868945) HDLC RATIO (test code = See_Comment H [Au tomated message] 9019538668) The system [employer] generated this result transmit allie reference range : <=4.5. The refe rence range was not u sed to interpret th is result as normal/abnormal . TRIG (test code = 365 mg/dL 30-170 H 9600159147) LDL CHOL (test code = 158 mg/dL See_Comment [Auto mated message] 49742-6) The system [employer] generated this result transmit allie reference range : <=160. The refe rence range was not u sed to interpret th is result as normal/abnormal . VLDL (test code = 73 mg/dL 5-60 H 7154168491) Lab Interpretation (test Abnormal code = 79072-8) [facility] WITH [id number] 18:04:00 Test Item Value Reference Range Interpretation Comments WBC (test code = See_Comment [Automated message] 6690-2) The system [employer] generated this result transmitted ref erence range: 4.30 - 1 1.10 10*3/?L. The re ference range was not u sed to interpret this result as normal/abnor mal. RBC (test code = See_Comment [Automated message] 789-8) The system [employer] generated this result transmitted ref erence range: 3.93 - 5 .25 10*6/?L. The re ference range was not u sed to interpret this result as normal/abnor mal. HGB (test code = 13.3 g/dL 11.6-15 718-7) HCT (test code = 41.2 % 35.7-45.2 4544-3) MCV (test code = 87.8 fL 80.6-95.5 787-2) MCH (test code = 28.4 pg 25.9-32.8 785-6) MCHC (test code = 32.3 g/dL 31.6-35.1 786-4) RDW-SD (test code 42.1 fL 39-49.9 = 03373-5) RDW-CV (test code 13.2 % 12-15.5 = 788-0) PLT (test code = See_Comment [Automated message] 777-3) The system whic h generated this result transmitted ref erence range: 166 - 35 8 10*3/?L. The re ference range was not u sed to interpret this result as normal/abnor mal. MPV (test code = 11.2 fL 9.5-12.9 01886-6) NRBC/100 WBC (test See_Comment [Automat ed message] code = 7824369808) The syste m which generated this result transmitted ref erence range: 0.0 - 10 .0 /100 WBCs. The refer ence range was not u sed to interpret this result as normal/abnor mal. NRBC x10^3 (test <0.01 See_Comment [Automated message] code = 6884042771) The syste m which generated this result transmitted ref erence range: 10*3/?L. The reference range was not used to interpr et this result as normal/abnormal . GRAN MAT (NEUT) % 67.8 % (test code = 770-8) IMM GRAN % (test 0.50 % code = 4544662350) LYMPH % (test code 23.0 % = 736-9) MONO % (test code 7.8 % = 5905-5) EOS % (test code = 0.5 % 713-8) BASO % (test code 0.4 % = 706-2) GRAN MAT 5.57 10*3/uL 1.88-7.09 x10^3(ANC) (test code = 8929726615) IMM GRAN x10^3 0.04 10*3/uL 0-0.06 (test code = 6030783499) LYMPH x10^3 (test 1.89 10*3/uL 1.32-3.29 code = 731-0) MONO x10^3 (test 0.64 10*3/uL 0.33-0.92 code = 742-7) EOS x10^3 (test 0.04 10*3/uL 0.03-0.39 code = 711-2) BASO x10^3 (test 0.03 10*3/uL 0.01-0.07 code = 704-7) [facility]. METABOLIC PANEL (98135)2020-01-31 18:04:00 Test Item Value Reference Range Interpretation Comments NA (test code = 141 mmol/L 135-145 3505536543) K (test code = 3.7 mmol/L 3.5-5 5474584515) CL (test code = 102 mmol/L 98-108 3390669831) CO2 TOTAL (test code = 28 mmol/L 23-31 0372844517) AGAP (test code = 2-16 2337044613) BUN (test code = 14 mg/dL 7-23 2999237358) GLUCOSE (test code = 146 mg/dL 70-110 H 9515462722) CREATININE (test code = 0.68 mg/dL 0.5-1.04 0935410440) TOTAL BILI (test code = 0.6 mg/dL 0.1-1.9 7921131300) CALCIUM (test code = 10.0 mg/dL 8.6-10.6 9662390642) T PROTEIN (test code = 8.2 g/dL 6.3-8.2 7111832703) ALBUMIN (test code = 4.9 g/dL 3.5-5 6690006757) ALK PHOS (test code = 80 U/L 34-122 5724640535) ALTv (test code = 15 U/L 5-35 1742-6) AST(SGOT) (test code = 22 U/L 13-40 0759431642) eGFR Calculation mL/min/1.73m2 (Non-) (test code = 6094318016) eGFR Calculation mL/min/1.73m2 () (test code = 7661100963) MARCELLE (test code = MARCELLE) Association of Glomerular Filtration Rate (GFR) and Staging of Kidney Disease* + --+ --+ ------+| GFR (mL/min/1.73 m2) ?| With Kidney Damage ?| ?Without Kidney Damage+ --------+ --------+ +| ?>90 ?| ?Stage one ?| ? Normal ?+ ---+ ---+ -------+| ?60-89 ?| ?Stage two ?| ? Decreased GFR ? + --+ --+ ------+| ?30-59 ?| ?Stage three ?| ? Stage three ? + --+ --+ ------+| ?15-29 ?| ?Stage four ? | ? Stage four ?+ ---+ ---+ -------+| ?<15 (or dialysis) ? ?| ?Stage five ? | ? Stage five ?+ ---+ ---+ -------+ *Each stage assumes the associated GFR level has been in effect for at least three months. ?Stages 1 to 5, with or without kidney disease, indicate chronic kidney disease. Notes: Determination of stages one and two (with eGFR >59mL/min/1.73 m2) requires estimation of kidney damage for at least three months as defined by structural or functional abnormalities of the kidney, manifested by either:Pathological abnormalities or Markers of kidney damage (including abnormalities in the composition of the blood or urine or abnormalities in imaging tests). Lab Interpretation Abnormal (test code = 88816-7) [facility], TXLIPID PANEL (76817)(TOTAL CHOLESTEROL, TRIGLYCERIDES, HDL)2020-01-31 18:04:00 Test Item Value Reference Range Interpretation Comments CHOL (test code = 277 mg/dL 120-200 H [id number]) HDL (test code = 46 mg/dL >50 L [id number]) HDLC RATIO (test code = See_Comment H [Au tomated message] [id number]) The system [employer] generated this result transmit allie reference range : <=4.5. The refe rence range was not u sed to interpret th is result as normal/abnormal . TRIG (test code = 365 mg/dL 30-170 H [id number]) LDL CHOL (test code = 158 mg/dL See_Comment [Auto mated message] 58726-0) The system [employer] generated this result transmit allie reference range : <=160. The refe rence range was not u sed to interpret th is result as normal/abnormal . VLDL (test code = 73 mg/dL 5-60 H [id number]) Lab Interpretation (test Abnormal code = 32530-4) [facility] [place], [id number] 06:49:00 Test Item Value Reference Range Interpretation Comments ACT-ISTAT (test code = ACTI) 158 SEC 74-137 H [id number] 06:49:00 Test Item Value Reference Range Interpretation Comments ACT-ISTAT (test code = ACTI) 180 SEC 74-137 H [id number] 06:49:00 Test Item Value Reference Range Interpretation Comments ACT-ISTAT (test code = ACTI) 224 SEC 74-137 H GLUCOSE BEDSIDE [id number] 08:44:00 Test Item Value Reference Range Interpretation Comments GLUCOSE BEDSIDE TESTING (test code 124 MG/DL 60-99 H = GLUBED) BASIC METABOLIC [id number] 07:40:00 Test Item Value Reference Range Interpretation Comments SODIUM (test code = 138 MMOL/L 137-145 N NA) POTASSIUM (test code = 3.6 MMOL/L 3.5-5.1 N K) CHLORIDE (test code = 103 MMOL/L 98-107 N CL) CARBON DIOXIDE (test 23 MMOL/L 22-30 N code = CO2) GLUCOSE (test code = 128 MG/DL 74-106 H GLU) BLOOD UREA NITROGEN 12 MG/DL 7-17 N (test code = BUN) GLOMERULAR FILTRATION > 60 Report ing units: RATE (test code = GFR) ml/mi n/1.73 m2 (Modified MDRD Formula)Referen ce Range: > or = 6 0 ml/min/1.73 m2 CREATININE (test code 0.50 MG/DL 0.52-1.04 L = CREAT) CALCIUM (test code = 8.4 MG/DL 8.4-10.2 N CA) BASIC METABOLIC [id number] 07:38:00 Test Item Value Reference Range Interpretation Comments SODIUM (test code = 138 MMOL/L 137-145 N NA) POTASSIUM (test code = 3.6 MMOL/L 3.5-5.1 N K) CHLORIDE (test code = 103 MMOL/L 98-107 N CL) CARBON DIOXIDE (test 23 MMOL/L 22-30 N code = CO2) GLUCOSE (test code = MG/DL 74-106 GLU) BLOOD UREA NITROGEN 12 MG/DL 7-17 N (test code = BUN) GLOMERULAR FILTRATION > 60 Report ing units: RATE (test code = GFR) ml/mi n/1.73 m2 (Modified MDRD Formula)Referen ce Range: > or = 6 0 ml/min/1.73 m2 CREATININE (test code 0.50 MG/DL 0.52-1.04 L = CREAT) CALCIUM (test code = MG/DL 8.7-9.7 CA) BASIC METABOLIC [id number] 07:36:00 Test Item Value Reference Range Interpretation Comments SODIUM (test code = NA) 138 MMOL/L 137-145 N POTASSIUM (test code = K) 3.6 MMOL/L 3.5-5.1 N CHLORIDE (test code = CL) 103 MMOL/L 98-107 N CARBON DIOXIDE (test code = CO2) MMOL/L 22-30 GLUCOSE (test code = GLU) MG/DL 74-106 BLOOD UREA NITROGEN (test code = MG/DL 7-17 BUN) GLOMERULAR FILTRATION RATE (test code = GFR) CREATININE (test code = CREAT) MG/DL 0.52-1.04 CALCIUM (test code = CA) MG/DL 8.7-9.7 BASIC METABOLIC [id number] 07:35:00 Test Item Value Reference Range Interpretation Comments SODIUM (test code = NA) 138 MMOL/L 137-145 N POTASSIUM (test code = K) MMOL/L 3.5-5.1 CHLORIDE (test code = CL) 103 MMOL/L 98-107 N CARBON DIOXIDE (test code = CO2) MMOL/L 22-30 GLUCOSE (test code = GLU) MG/DL 74-106 BLOOD UREA NITROGEN (test code = MG/DL 7-17 BUN) GLOMERULAR FILTRATION RATE (test code = GFR) CREATININE (test code = CREAT) MG/DL 0.52-1.04 CALCIUM (test code = CA) MG/DL 8.7-9.7 CBC W/AUTO [id number] 07:18:00 Test Item Value Reference Range Interpretation Comments WHITE BLOOD CELL (test code = 9.6 K/MM3 3.8-9.8 N WBC) RED BLOOD CELL (test code = 3.60 M/MM3 3.58-4.97 RBC) HEMOGLOBIN (test code = HGB) 10.4 G/DL 11.2-14.9 L HEMATOCRIT (test code = HCT) 34.3 % 33.2-43.5 MEAN CELL VOLUME (test code = 95 fL 80.7-99.1 N MCV) MEAN CELL HGB (test code = MCH) 28.9 pg 27.0-34.1 N MEAN CELL HGB CONCETRATION 30.3 % 32.2-35.7 L (test code = MCHC) RED CELL DISTRIBUTION WIDTH 13.5 % 12.1-15.2 N (test code = RDW) PLATELET COUNT (test code = 129 K/MM3 129-368 PLT) MEAN PLATELET VOLUME (test code 12.7 fl 7.4-10.4 H = MPV) NEUTROPHIL % (test code = NT%) 73.7 % 43-75 N IMMATURE GRANULOCYTE % (test 0.4 % 0.0-2.0 N code = IG%) LYMPHOCYTE % (test code = LY%) 15.2 % 14-44 N MONOCYTE % (test code = MO%) 10.3 % 4-13 N EOSINOPHIL % (test code = EO%) 0.1 % 0-6 N BASOPHIL % (test code = BA%) 0.3 % 0-2 N NUCLEATED RBC % (test code = 0.0 % 0-1.0 N NRBC%) NEUTROPHIL # (test code = NT#) 7.06 K/mm3 2.0-7.6 N IMMATURE GRANULOCYTE # (test 0.04 x10 3/uL 0-0.03 H code = IG#) LYMPHOCYTE # (test code = LY#) 1.46 K/mm3 1.0-3.8 N MONOCYTE # (test code = MO#) 0.99 K/mm3 0.1-0.8 H EOSINOPHIL # (test code = EO#) 0.01 K/mm3 0.0-0.2 N BASOPHIL # (test code = BA#) 0.03 K/mm3 0.0-0.2 N NUCLEATED RBC # (test code = 0.00 K/mm3 0.0-0.1 N NRBC#) [id number] 13:37:00 Test Item Value Reference Range Interpretation Comments ACT-ISTAT (test code = ACTI) 373 SEC 74-137 H [id number] 13:37:00 Test Item Value Reference Range Interpretation Comments ACT-ISTAT (test code = ACTI) 296 SEC 74-137 H [id number] 13:37:00 Test Item Value Reference Range Interpretation Comments ACT-ISTAT (test code = ACTI) 318 SEC 74-137 H [id number] 13:37:00 Test Item Value Reference Range Interpretation Comments ACT-ISTAT (test code = ACTI) 417 SEC 74-137 H [id number] 13:37:00 Test Item Value Reference Range Interpretation Comments ACT-ISTAT (test code = ACTI) 345 SEC 74-137 H [id number] 13:37:00 Test Item Value Reference Range Interpretation Comments ACT-ISTAT (test code = ACTI) 268 SEC 74-137 H BASIC METABOLIC [id number] 07:38:00 Test Item Value Reference Range Interpretation Comments SODIUM (test code = 141 MMOL/L 137-145 N NA) POTASSIUM (test code = 3.8 MMOL/L 3.5-5.1 N K) CHLORIDE (test code = 103 MMOL/L 98-107 N CL) CARBON DIOXIDE (test 27 MMOL/L 22-30 N code = CO2) GLUCOSE (test code = 154 MG/DL 74-106 H GLU) BLOOD UREA NITROGEN 15 MG/DL 7-17 N (test code = BUN) GLOMERULAR FILTRATION > 60 Report ing units: RATE (test code = GFR) ml/mi n/1.73 m2 (Modified MDRD Formula)Referen ce Range: > or = 6 0 ml/min/1.73 m2 CREATININE (test code 0.60 MG/DL 0.52-1.04 N = CREAT) CALCIUM (test code = 9.7 MG/DL 8.4-10.2 N CA) [id number] 07:38:00 Test Item Value Reference Range Interpretation Comments MAGNESIUM (test code = MAG) 1.8 MG/DL 1.6-2.3 N BASIC METABOLIC [id number] 07:37:00 Test Item Value Reference Range Interpretation Comments SODIUM (test code = 141 MMOL/L 137-145 N NA) POTASSIUM (test code = 3.8 MMOL/L 3.5-5.1 N K) CHLORIDE (test code = 103 MMOL/L 98-107 N CL) CARBON DIOXIDE (test 27 MMOL/L 22-30 N code = CO2) GLUCOSE (test code = 154 MG/DL 74-106 H GLU) BLOOD UREA NITROGEN 15 MG/DL 7-17 N (test code = BUN) GLOMERULAR FILTRATION > 60 Report ing units: RATE (test code = GFR) ml/mi n/1.73 m2 (Modified MDRD Formula)Referen ce Range: > or = 6 0 ml/min/1.73 m2 CREATININE (test code 0.60 MG/DL 0.52-1.04 N = CREAT) CALCIUM (test code = MG/DL 8.7-9.7 CA) [id number] 07:37:00 Test Item Value Reference Range Interpretation Comments MAGNESIUM (test code = MAG) MG/DL 1.6-2.3 BASIC METABOLIC [id number] 07:37:00 Test Item Value Reference Range Interpretation Comments SODIUM (test code = 141 MMOL/L 137-145 N NA) POTASSIUM (test code = 3.8 MMOL/L 3.5-5.1 N K) CHLORIDE (test code = 103 MMOL/L 98-107 N CL) CARBON DIOXIDE (test 27 MMOL/L 22-30 N code = CO2) GLUCOSE (test code = 154 MG/DL 74-106 H GLU) BLOOD UREA NITROGEN 15 MG/DL 7-17 N (test code = BUN) GLOMERULAR FILTRATION > 60 Report ing units: RATE (test code = GFR) ml/mi n/1.73 m2 (Modified MDRD Formula)Referen ce Range: > or = 6 0 ml/min/1.73 m2 CREATININE (test code 0.60 MG/DL 0.52-1.04 N = CREAT) CALCIUM (test code = 9.7 MG/DL 8.4-10.2 N CA) [id number] 07:37:00 Test Item Value Reference Range Interpretation Comments MAGNESIUM (test code = MAG) MG/DL 1.6-2.3 BASIC METABOLIC [id number] 07:33:00 Test Item Value Reference Range Interpretation Comments SODIUM (test code = NA) 141 MMOL/L 137-145 N POTASSIUM (test code = K) 3.8 MMOL/L 3.5-5.1 N CHLORIDE (test code = CL) 103 MMOL/L 98-107 N CARBON DIOXIDE (test code = CO2) MMOL/L 22-30 GLUCOSE (test code = GLU) MG/DL 74-106 BLOOD UREA NITROGEN (test code = MG/DL 7-17 BUN) GLOMERULAR FILTRATION RATE (test code = GFR) CREATININE (test code = CREAT) MG/DL 0.52-1.04 CALCIUM (test code = CA) MG/DL 8.7-9.7 [id number] 07:33:00 Test Item Value Reference Range Interpretation Comments MAGNESIUM (test code = MAG) MG/DL 1.6-2.3 PROTHROMBIN [id number] 07:19:00 Test Item Value Reference Range Interpretation Comments PROTHROMBIN TIME 11.1 SECONDS 9.4-12.5 N PATIENT (test code = PTP) INTERNATIONAL NORMAL 1.0 The INR is to be RATIO (test code = used only for INR) monitoring oral anticoagulantth erap y. INDICATION I NR VALUE ---- ---- ---- -------1. Prophylaxis, de ep venous thrombos is, including hig h risk surgery. 2.0 - 3.0 2. Prophylaxis, de ep venous thrombos is, hip surgery, treatment for d eep venous thrombosis or pulmonary prevention of systemic emboli sm in patients wit h valvular heart disease, atrial fibrillation, tissue heart va lve, or acute myocar dial infarction. 2.0 - 3 .0 3. Mechanical prosthesis hear t valves, recurrent syste nish embolism. 3.0 - 4.5 PTT [id number] 07:19:00 Test Item Value Reference Range Interpretation Comments PTT ACTIVATED (test code = APTT) 34.2 SECONDS 25.1-36.5 N CBC W/AUTO [id number] 07:03:00 Test Item Value Reference Range Interpretation Comments WHITE BLOOD CELL (test code = 7.9 K/MM3 3.8-9.8 N WBC) RED BLOOD CELL (test code = 4.29 M/MM3 3.58-4.97 N RBC) HEMOGLOBIN (test code = HGB) 12.2 G/DL 11.2-14.9 N HEMATOCRIT (test code = HCT) 38.6 % 33.2-43.5 N MEAN CELL VOLUME (test code = 90 fL 80.7-99.1 N MCV) MEAN CELL HGB (test code = MCH) 28.4 pg 27.0-34.1 N MEAN CELL HGB CONCETRATION 31.6 % 32.2-35.7 L (test code = MCHC) RED CELL DISTRIBUTION WIDTH 13.3 % 12.1-15.2 N (test code = RDW) PLATELET COUNT (test code = 256 K/MM3 129-368 N PLT) MEAN PLATELET VOLUME (test code 10.8 fl 7.4-10.4 H = MPV) NEUTROPHIL % (test code = NT%) 66.4 % 43-75 N IMMATURE GRANULOCYTE % (test 0.3 % 0.0-2.0 N code = IG%) LYMPHOCYTE % (test code = LY%) 23.6 % 14-44 N MONOCYTE % (test code = MO%) 7.6 % 4-13 N EOSINOPHIL % (test code = EO%) 1.5 % 0-6 N BASOPHIL % (test code = BA%) 0.6 % 0-2 N NUCLEATED RBC % (test code = 0.0 % 0-1.0 N NRBC%) NEUTROPHIL # (test code = NT#) 5.24 K/mm3 2.0-7.6 N IMMATURE GRANULOCYTE # (test 0.02 x10 3/uL 0-0.03 N code = IG#) LYMPHOCYTE # (test code = LY#) 1.86 K/mm3 1.0-3.8 N MONOCYTE # (test code = MO#) 0.60 K/mm3 0.1-0.8 N EOSINOPHIL # (test code = EO#) 0.12 K/mm3 0.0-0.2 N BASOPHIL # (test code = BA#) 0.05 K/mm3 0.0-0.2 N NUCLEATED RBC # (test code = 0.00 K/mm3 0.0-0.1 N NRBC#) GLUCOSE BEDSIDE [id number] 08:47:00 Test Item Value Reference Range Interpretation Comments GLUCOSE BEDSIDE TESTING (test code 130 MG/DL 60-99 H = GLUBED) BASIC METABOLIC [id number] 10:13:00 Test Item Value Reference Range Interpretation Comments SODIUM (test code = 143 MMOL/L 137-145 N NA) POTASSIUM (test code = 4.2 MMOL/L 3.5-5.1 N K) CHLORIDE (test code = 103 MMOL/L 98-107 N CL) CARBON DIOXIDE (test 30 MMOL/L 22-30 N code = CO2) GLUCOSE (test code = 132 MG/DL 74-106 H GLU) BLOOD UREA NITROGEN 16 MG/DL 7-17 N (test code = BUN) GLOMERULAR FILTRATION > 60 Report ing units: RATE (test code = GFR) ml/mi n/1.73 m2 (Modified MDRD Formula)Referen ce Range: > or = 6 0 ml/min/1.73 m2 CREATININE (test code 0.60 MG/DL 0.52-1.04 N = CREAT) CALCIUM (test code = 9.8 MG/DL 8.4-10.2 N CA) [id number] 10:13:00 Test Item Value Reference Range Interpretation Comments MAGNESIUM (test code = MAG) 1.8 MG/DL 1.6-2.3 N BASIC METABOLIC [id number] 10:12:00 Test Item Value Reference Range Interpretation Comments SODIUM (test code = 143 MMOL/L 137-145 N NA) POTASSIUM (test code = 4.2 MMOL/L 3.5-5.1 N K) CHLORIDE (test code = 103 MMOL/L 98-107 N CL) CARBON DIOXIDE (test 30 MMOL/L 22-30 N code = CO2) GLUCOSE (test code = 132 MG/DL 74-106 H GLU) BLOOD UREA NITROGEN 16 MG/DL 7-17 N (test code = BUN) GLOMERULAR FILTRATION > 60 Report ing units: RATE (test code = GFR) ml/mi n/1.73 m2 (Modified MDRD Formula)Referen ce Range: > or = 6 0 ml/min/1.73 m2 CREATININE (test code 0.60 MG/DL 0.52-1.04 N = CREAT) CALCIUM (test code = MG/DL 8.7-9.7 CA) [id number] 10:12:00 Test Item Value Reference Range Interpretation Comments MAGNESIUM (test code = MAG) MG/DL 1.6-2.3 PROTHROMBIN [id number] 10:10:00 Test Item Value Reference Range Interpretation Comments PROTHROMBIN TIME 16.0 SECONDS 9.4-12.5 H PATIENT (test code = PTP) INTERNATIONAL NORMAL 1.4 The INR is to be RATIO (test code = used only for INR) monitoring oral anticoagulantth erap y. INDICATION I NR VALUE ---- ---- ---- -------1. Prophylaxis, de ep venous thrombos is, including hig h risk surgery. 2.0 - 3.0 2. Prophylaxis, de ep venous thrombos is, hip surgery, treatment for d eep venous thrombosis or pulmonary prevention of systemic emboli sm in patients wit h valvular heart disease, atrial fibrillation, tissue heart va lve, or acute myocar dial infarction. 2.0 - 3 .0 3. Mechanical prosthesis hear t valves, recurrent syste nish embolism. 3.0 - 4.5 PTT [id number] 10:10:00 Test Item Value Reference Range Interpretation Comments PTT ACTIVATED (test code = APTT) 40.3 SECONDS 25.1-36.5 H BASIC METABOLIC [id number] 10:09:00 Test Item Value Reference Range Interpretation Comments SODIUM (test code = NA) 143 MMOL/L 137-145 N POTASSIUM (test code = K) 4.2 MMOL/L 3.5-5.1 N CHLORIDE (test code = CL) 103 MMOL/L 98-107 N CARBON DIOXIDE (test code = CO2) MMOL/L 22-30 GLUCOSE (test code = GLU) MG/DL 74-106 BLOOD UREA NITROGEN (test code = MG/DL 7-17 BUN) GLOMERULAR FILTRATION RATE (test code = GFR) CREATININE (test code = CREAT) MG/DL 0.52-1.04 CALCIUM (test code = CA) MG/DL 8.7-9.7 [id number] 10:09:00 Test Item Value Reference Range Interpretation Comments MAGNESIUM (test code = MAG) MG/DL 1.6-2.3 CBC W/AUTO [id number] 09:56:00 Test Item Value Reference Range Interpretation Comments WHITE BLOOD CELL (test code = 8.8 K/MM3 3.8-9.8 N WBC) RED BLOOD CELL (test code = 4.38 M/MM3 3.58-4.97 N RBC) HEMOGLOBIN (test code = HGB) 12.6 G/DL 11.2-14.9 N HEMATOCRIT (test code = HCT) 39.1 % 33.2-43.5 N MEAN CELL VOLUME (test code = 89 fL 80.7-99.1 N MCV) MEAN CELL HGB (test code = MCH) 28.8 pg 27.0-34.1 N MEAN CELL HGB CONCETRATION 32.2 % 32.2-35.7 N (test code = MCHC) RED CELL DISTRIBUTION WIDTH 13.2 % 12.1-15.2 N (test code = RDW) PLATELET COUNT (test code = 228 K/MM3 129-368 N PLT) MEAN PLATELET VOLUME (test code 10.8 fl 7.4-10.4 H = MPV) NEUTROPHIL % (test code = NT%) 67.7 % 43-75 N IMMATURE GRANULOCYTE % (test 0.2 % 0.0-2.0 N code = IG%) LYMPHOCYTE % (test code = LY%) 20.0 % 14-44 N MONOCYTE % (test code = MO%) 8.8 % 4-13 N EOSINOPHIL % (test code = EO%) 2.6 % 0-6 N BASOPHIL % (test code = BA%) 0.7 % 0-2 N NUCLEATED RBC % (test code = 0.0 % 0-1.0 N NRBC%) NEUTROPHIL # (test code = NT#) 5.94 K/mm3 2.0-7.6 N IMMATURE GRANULOCYTE # (test 0.02 x10 3/uL 0-0.03 N code = IG#) LYMPHOCYTE # (test code = LY#) 1.75 K/mm3 1.0-3.8 N MONOCYTE # (test code = MO#) 0.77 K/mm3 0.1-0.8 N EOSINOPHIL # (test code = EO#) 0.23 K/mm3 0.0-0.2 H BASOPHIL # (test code = BA#) 0.06 K/mm3 0.0-0.2 N NUCLEATED RBC # (test code = 0.00 K/mm3 0.0-0.1 N NRBC#) XR WRIST <3 VW [id number] 19:17:01Transverse fracture distal radius no volar or dorsal angulation which shows callus formation today in an acceptable alignment there is also some callus formation on the ULNAR styloid fracture. [facility] [place], [place]"
== END 2021-05-01 14:18 | disposition home or self-care (01) ==
LOC: ER 10:40
DX: S82.042A Displaced comminuted fracture of left patella, initial encounter for closed fracture (principal); W01.0XXA Fall on same level from slipping, tripping and stumbling without subsequent striking against object, initial encounter; Y93.9 Activity, unspecified; Y92.89 Other specified places as the place of occurrence of the external cause; Y99.0 Civilian activity done for income or pay
CPT/HCPCS: 73700; 99284

== ENCOUNTER 2021-06-12 05:59 | Day surgery (SDC) | payer SELFPAY ==
[2021-06-08 12:55] LABS: Absolute Lymphocytes (CBC) 2.1 K/uL (0.7-4.9); Basophils % 0.5 % (0-1.3); Lymphocytes % 29.8 % (15.3-44.8); MPV 8.3 fL (7.6-11.3); RBC Red Blood Cell Count 4.27 M/uL (3.86-4.86)
[2021-06-08 13:08] LABS: Potassium 3.6 mmol/L (3.5-5.1)
--- NOTE | 2021-06-09 17:01 | EKG ---
Test Date: 2021-06-08 Test Time: 13:09:06 [employer] Operator: JIN MEASUREMENT RESULTS: Intervals: Rate: 76 GA: 124 QRSD: 88 QT: 412 QTc: 463 [place]: P: 70 GA: 124 QRS: 9 T: 48 INTERPRETIVE STATEMENTS: Normal sinus rhythm with sinus arrhythmia Septal infarct, age undetermined Abnormal ECG Compared to ECG 06/19/2003 19:53:00 Myocardial infarct finding now present Short GA interval no longer present ST (T wave) deviation no longer present Electronically Signed On 06-09-21 16:59:59 EVP by Carlos Shine
[2021-06-12] MEDS ORDERED: FENTANYL CITR 100 MCG/2 ML ONE (06:05)
[2021-06-12] MEDS ORDERED: LIDOCAINE 1% MPF 5 ML VIAL ONE (06:05)
[2021-06-12] MEDS ORDERED: dexAMETHasone 4 MG/ML VIAL ONE (06:05)
[2021-06-12] MEDS ORDERED: MIDAZOLAM HCL 2 MG/2 ML INJ ONE (06:05)
[2021-06-12] MEDS ORDERED: BUPIVACAINE 0.5% Inj,MDV 50 mL VIAL ONE (06:06)
[2021-06-12] MEDS ORDERED: NA CHLORIDE 0.9% 1,000 ML ONE (06:19)
[2021-06-12] MEDS ORDERED: CEFAZOLIN/NS 1gm 1 GM/50 ML BAG ONE (06:19)
[2021-06-12] MEDS ORDERED: LIDOCAINE 2% MPF 5 ML VIAL ONE (07:20)
[2021-06-12] MEDS ORDERED: propofoL 200 MG/20 ML VIAL IV ONE (07:20)
[2021-06-12] MEDS ORDERED: ONDANSETRON 4 MG/2 ML VIAL ONE (07:59)
[2021-06-12] MEDS ORDERED: EPHEDRINE SULF 50 MG/ML VIAL ONE (08:07)
[2021-06-12] MEDS ORDERED: Ringers Lactate 1,000 ML IV ONE (08:28)
[2021-06-12] MEDS ORDERED: KETOROLAC 30 MG/ML INJ ONE (08:34)
--- NOTE | 2021-06-12 09:36 | OP ---
Date of Procedure: 06/12/2021 Surgeon: Christos Barnett MD Preoperative Diagnosis: Left patella fracture which was comminuted and displaced with delayed presen tation. Postoperative Diagnosis: Left patella fracture which was comminuted and displaced with delayed prese ntation. Procedure: Right patellar nonunion takedown with open reduction and internal fixation using tension band wiring. Estimated Blood Loss: Less than 20 cc. Complications: There were no complications. Pathology Specimens: No pathology specimens sent. Indications For Operation: Ms. Kaur unfortunately fell injuring her left knee at the beginning of April. She had difficulties with acquiring the ability to undergo operative intervention, but arrived for see me the first time in my office, not too long ago. X-rays were reviewed, which revea led a displaced comminuted patellar fracture at least 6 weeks old. She had fair minus to poor plus k nee extension with an obvious lag. Risks, benefits, and alternatives to different methods of treatin g of this have been discussed with the patient. She states she understands things as presented and w ishes to proceed with open reduction and internal fixation. Description Of Procedure: The patient was taken to the operating room and placed in supine position. She had previously had a block of the lower extremity; however, she also undergoes general anesthes ia. This was followed by placement of well-padded tourniquet to the superior left thigh. Left lower extremity was then prepped and draped in the usual fashion for the procedure. After this, the leg w as then elevated and the knee was bent. Tourniquet was raised. A standard anterior incision was brayan en down carefully through skin, only meticulous hemostasis being maintained using Bovie electrocauter y. Great care was made to ensure a full thickness skin flaps. This leads down to the patella. Ther e was no obvious fracture line seen initially for the scarring; however, definitely mobile with indep endent movement somewhat of the distal and proximal fragments. Combination of knife and rongeur was then used to clear out the primary fracture fragment, which is between the inferior half and superior half. After this was done, the clamp was then applied. The C-arm was brought in. It does not comp letely close down the anterior aspect; however, the joint appears to be concentric. Decision was mad e to continue without bone grafting as we did have good bony apposition with freshened wound bed and proceed with tension band wiring. This was performed in standard fashion using 2.062 K-wires followe d by 18-gauge wire in a yhtyao-ca-qesbf with a wire being placed under the patella and quadriceps. C -arm was used to ensure a good reduction after tightening of the wire. The pins were then bent and a ppropriately placed. The wound was irrigated and the anterior aspect of the thickened periosteum sca r was affixed over the most prominent portion of the yqpuga-rj-igilt using heavy Vicryl. This was fo llowed by careful closure of skin using 2-0 Vicryl followed by marcella. The patient was then placed in a very well-padded sterile dressing as well as a knee immobilizer with supplemental posterior 5-in ch Orthoglass. She was then taken to recovery room awake and in good condition. No complications. /CARIDAD Voice ID: [id number] Report ID: [id number]
[2021-06-12] MEDS ORDERED: HYDROCODONE/APAP 7.5/325 MG TAB ONE (09:47)
--- NOTE | 2021-06-12 09:49 | RAD REPORT ---
EXAM DESCRIPTION: RAD - Knee Left 2 View - 06/12/2021 9:41 am CLINICAL HISTORY: Patellar fracture FINDINGS: Seven intraoperative fluoroscopic spot images obtained. Internal fixation of a patellar fracture Fluoroscopy time 0.2 minutes. Surgery performed by Dr. Barnett
[2021-06-12 09:50] VITALS: BP 138/52; TEMP 97.9; O2SAT 99
== END 2021-06-12 10:29 | disposition home or self-care (01) ==
LOC: OR 05:59
PROVIDERS: ATTEND Orthopaedic Surgery
PROC: 0QSF04Z Reposition Left Patella with Internal Fixation Device, Open Approach (ICD-10-PCS; principal; 2021-06-12 07:30)
DX: S82.04 Comminuted fracture of patella (principal); Z20.822 Contact with and (suspected) exposure to COVID-19
CPT/HCPCS: 36415; 80048; 82947; 85025; 93005; J0690; J1100; J2250; J2405; J2704; J3010; J7030; J7120; U0003

== ENCOUNTER 2022-06-06 21:52 | Inpatient (IN) | payer OTHER ==
--- OUTSIDE RECORDS SUMMARY | 2022-06-06 22:02 | XMS REPORT | Continuity of Care Document ---
:1945 Author Organization [facility] t Address [address] [place] [address] Care Team Providers Name Role Phone Chantel Chung MD Primary Care Physician [phone] Shasta Arredondo Attending Clinician Unavailable Ady Ventura Attending Clinician Unavailable Anna Christian Attending Clinician Unavailable Brittany Joshi Attending Clinician Chantel Chung MD Attending Clinician [phone] Doctor Unassigned, [place] Attending Clinician Unavailable CHANTEL CHUNG Attending Clinician Unavailable P[facility] Attending Clinician Unavailable Skinny Cantu Attending Clinician Unavailable Alejandro Kirby Attending Clinician Ady [place]ura Admitting Clinician Unavailable Skinny Cantu Admitting Clinician Unavailable Anna Christian Admitting Clinician Unavailable Payers Payer Name Policy Type Policy Number Effective Date Expiration Date Kristi Kaplan [id number] 2020 [facility] 00:00:00 [facility] Problems Condition Condition Condition Status Onset Resolution Last Treating Co mments Source Name Details Category Date Date Treatment Clinician Date [id number] Acquired Problem Comm on hypothyroi [facility] dism [facility] [id number] Primary Problem Comm on osteoarthr [facility] itis of [facility] left hip [facility] Hypertensi Hypertensi Disease Active U nivers on on [facility] Hyperlipid Hyperlipid Disease Active U nivers emia emia [facility] Diabetes Diabetes Disease Active Unive rs mellitus mellitus [facility] [id number] Primary Problem Common insomnia [facility] [id number] Closed Problem Common displaced Spirit comminuted - [facility] fracture St of left [facility] Center routine healing, subsequent encounter Seasonal Seasonal Problem Commo n allergy allergies [facility] Sinusitis Sinusitis Problem Com mon [facility] [id number] [place], [place] [id number] joint, [facility] knee, left [facility] [id number] Primary Problem Comm on osteoarthr Spirit itis of - [facility] right hip [facility] [id number] Mixed Problem Common hyperlipid [facility] emia [facility] Vitamin D Vitamin D Problem Com mon deficiency deficiency Sp earnestine - [facility] Atrial Atrial Problem Common fibrillati fibrillati Sp earnestine on on [facility] [id number] Anxiety Problem Common with [facility] depression [facility] 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 Medica l , Center unspecifie d whether assisted insulin use Allergies, Adverse Reactions, Alerts Allergy Allergy Status Severity Reaction(s) Onset Inactive Treating Comm ents Source Name Type Date Date Clinician No Known DA Active [facility] [place] 00[facility]: [address] No Known DA Active U [facility] [place] 00:[facility]: [address] No Known DA Active U [facility] 6[facility] [place] 00:[facility]: [address] No Known DA Active U [facility] 4-30 [place] 00:00: [address] No Known DA Active U [facility] All[facility]ie 1-18 [place] 00:00: [address] NO KNOWN Drug Active Univers ALLERGIE Class ity of S [facility] Social History Social Habit Start Date Stop Date Quantity Comments Source History of Tobacco Common Spirit - Use [facility] Sex Assigned At Common Sp earnestine - [facility] History SDOH University o f Alcohol Std Drinks [facility] History SDLA University o f Alcohol Binge [facility] Exposure to Unable to assess Univers ity of SARS-CoV-2 (event) [facility] Alcohol intake 2020-01-31 2020-01-31 Ex-drinker University of 00:00:00 00:00:00 (finding) [facility] Cigarettes smoked 2020-01-31 2020-01-31 Univers ity of current (pack per 00:00:00 00:00:00 ) - Reported Branch Tobacco use and 2020-01-31 2020-01-31 Never used Universit y of exposure 00:00:00 00:00:00 [facility] History SDOH 2019-06-03 2019-06-03 1 University o f Alcohol Frequency 00:00:00 00:00:00 [facility] Smoking Status Start Date Stop Date Source Former Smoker 2022-03-26 00:00:00 2022-03-26 00:00:00 Common S pirit - [facility] Never smoker [facility] Branch Medications Ordered Filled Start Stop Current Ordering Indication Dosage Frequency Signature Comments Components Source Medication Medication Date Date Medication? Clinician (SIG) Name Name traZODone traZODone 2021-06 No 1{table QD traZODone HCl 150 MG HCl 150 MG 0-17 t_at_be HCl 150 MG 00:00: dtime} 00 Venlafaxine Venlafaxine 2021-06 No 1{capsu QD Venlafaxin HCl ER 150 HCl ER 150 0-17 le_with e HCl ER MG MG 00:00: _food} 150 MG 00 Ultracet Ultracet No 2{table QID Ultracet 37.5-325 MG 37.5-325 MG -19 ts_as_n 37.5-325 00:00: eeded} MG 00 Ultracet Ultracet No 2{table QID Ultracet 37.5-325 MG 37.5-325 MG -19 ts_as_n 37.5-325 00:00: eeded} MG 00 Ultracet Ultracet No 2{table QID Ultracet 37.5-325 MG 37.5-325 MG -19 ts_as_n 37.5-325 00:00: eeded} MG 00 Ultracet Ultracet No 2{table QID Ultracet 37.5-325 MG 37.5-325 MG 1-19 ts_as_n 37.5-325 00:00: eeded} MG 00 Ultracet Ultracet No 2{table QID Ultracet 37.5-325 MG 37.5-325 MG -19 ts_as_n 37.5-325 00:00: eeded} MG 00 Ultracet Ultracet No 2{table QID Ultracet 37.5-325 MG 37.5-325 MG -19 ts_as_n 37.5-325 00:00: eeded} MG 00 Ultracet Ultracet No 2{table QID Ultracet 37.5-325 MG 37.5-325 MG -19 ts_as_n 37.5-325 00:00: eeded} MG 00 Ultracet Ultracet No 2{table QID Ultracet 37.5-325 MG 37.5-325 MG -19 ts_as_n 37.5-325 00:00: eeded} MG 00 Ultracet Ultracet No 2{table QID Ultracet 37.5-325 MG 37.5-325 MG - ts_as_n 37.5-325 00:00: eeded} MG 00 Ultracet Ultracet No 2{table QID Ultracet 37.5-325 MG 37.5-325 MG - ts_as_n 37.5-325 00:00: eeded} MG 00 Ultracet Ultracet No 2{table QID Ultracet 37.5-325 MG 37.5-325 MG -19 ts_as_n 37.5-325 00:00: eeded} MG 00 Ultracet Ultracet No 2{table QID Ultracet 37.5-325 MG 37.5-325 MG - ts_as_n 37.5-325 00:00: eeded} MG 00 HYDROcodone HYDROcodone 2021- No QID HYDROcodon -Acetaminop -Acetaminop 1-03 01-10 e-Acetamin hen 5-325 hen 5-325 00:00: 00:00 ophen MG MG 00 :00 5-325 MG HYDROcodone HYDROcodone 2020-06 No 1{table HYDROcodon -Acetaminop -Acetaminop 2-21 t_as_ne e-Acetamin hen 5-325 hen 5-325 00:00: eded} ophen MG MG 00 5-325 MG HYDROcodone HYDROcodone 2020-06 No 1{table HYDROcodon -Acetaminop -Acetaminop 2-21 t_as_ne e-Acetamin hen 5-325 hen 5-325 00:00: eded} ophen MG MG 00 5-325 MG Levothyroxi Levothyroxi 2020-06 No QD Levothyrox ne Sodium ne Sodium 2-02 ine Sodium 75 MCG 75 MCG 00:00: 75 MCG 00 Levothyroxi Levothyroxi 2020-06 No QD Levothyrox ne Sodium ne Sodium 2-02 ine Sodium 75 MCG 75 MCG 00:00: 75 MCG 00 Levothyroxi Levothyroxi 2020-06 No QD Levothyrox ne Sodium ne Sodium 2-02 ine Sodium 75 MCG 75 MCG 00:00: 75 MCG 00 Levothyroxi Levothyroxi 2020-06 No QD Levothyrox ne Sodium ne Sodium 2-02 ine Sodium 75 MCG 75 MCG 00:00: 75 MCG 00 VENLAFAXINE Yes [id number] 37.5mg TAKE 1 Univers XR 37.5 mg 2-09 CAPSULE BY ity of 24 hr 00:00: MOUTH [place] capsule 00 DAILY WITH Medica l BREAKFAST. [place] VENLAFAXINE 2019-06 Yes [id number] 37.5mg TAKE 1 Univers XR 37.5 mg 1-06 CAPSULE BY ity of 24 hr 00:00: MOUTH [place] capsule 00 DAILY WITH Medica l BREAKFAST. [place] levothyroxi Yes [id number] 88ug Take 1 Univers ne 88 mcg 8-14 tablet by ity o f tablet 00:00: mouth [place] 00 every Medical morning. [place] levothyroxi Yes [id number] 88ug Take 1 Univers ne 88 mcg 8-14 tablet by ity o f tablet 00:00: mouth [place] 00 every Medical morning. [place] levothyroxi 0 Yes [id number] 88ug Take 1 Univers ne 88 mcg 8-14 tablet by ity o f tablet 00:00: mouth [place] 00 every Medical morning. [place] levothyroxi 0 Yes [id number] 88ug Take 1 Univers ne 88 mcg 8-14 tablet by ity o f tablet 00:00: mouth [place] 00 every Medical morning. [place] levothyroxi 2019-0 Yes [id number] 88ug Take 1 Univers ne 88 mcg 8-14 tablet by ity o f tablet 00:00: mouth [place] 00 every Medical morning. [place] levothyroxi 0 Yes [id number] 88ug Take 1 Univers ne 88 mcg 8-14 tablet by ity o f tablet 00:00: mouth [place] 00 every Medical morning. [place] levothyroxi 0 Yes [id number] 88ug Take 1 Univers ne 88 mcg 8-14 tablet by ity o f tablet 00:00: mouth [place] 00 every Medical morning. [place] metFORMIN 2019-0 Yes 1000mg Take 1,000 Univers 1,000 mg 8-10 mg by ity of tablet 16:04: mouth [address] [place] [address] (two) Medical times Branch daily with meals. metFORMIN 2020-0 Yes 1000mg Take 1,000 Univers 1,000 mg 8-10 mg by ity of tablet 16:04: mouth [address] [place] [address] (two) Medical times Branch daily with meals. metFORMIN 2020-0 Yes 1000mg Take 1,000 Univers 1,000 mg 8-10 mg by ity of tablet 16:04: mouth [address] [place] [address] (two) Medical times Branch daily with meals. metFORMIN 2020-0 Yes 1000mg Take 1,000 Univers 1,000 mg 8-10 mg by ity of tablet 16:04: mouth [address] [place] [address] (two) Medical times Branch daily with meals. metFORMIN 2020-0 Yes 1000mg Take 1,000 Univers 1,000 mg 8-10 mg by ity of tablet 16:04: mouth [address] [place] [address] (two) Medical times Branch daily with meals. metFORMIN 2020-0 Yes 1000mg Take 1,000 Univers 1,000 mg 8-10 mg by ity of tablet 16:04: mouth [address] [place] [address] (two) Medical times Branch daily with meals. metFORMIN 2020-0 Yes 1000mg Take 1,000 Univers 1,000 mg 8-10 mg by ity of tablet 16:04: mouth [address] [place] [address] (two) Medical times Branch daily with meals. metFORMIN 2020-0 Yes 1000mg Take 1,000 Univers 1,000 mg 8-10 mg by ity of tablet 16:04: mouth [address] [place] [address] (two) Medical times Branch daily with meals. metFORMIN 2020-0 Yes 1000mg Take 1,000 Univers 1,000 mg 8-10 mg by ity of tablet 16:04: mouth [address] [place] [address] (two) Medical times Branch daily with meals. metFORMIN 2020-0 Yes 1000mg Take 1,000 Univers 1,000 mg 8-10 mg by ity of tablet 16:04: mouth [address] [place] [address] (two) Medical times Branch daily with meals. carvediloL 2020-0 Yes 12.5mg Take 12.5 Univers 12.5 mg 8-10 mg by ity of tablet 15:53: mouth [address] [place] [address] (two) Medical times Branch daily with meals. carvediloL 2020-0 Yes 12.5mg Take 12.5 Univers 12.5 mg 8-10 mg by ity of tablet 15:53: mouth [address] [place] [address] (two) Medical times Branch daily with meals. carvediloL 2020-0 Yes 12.5mg Take 12.5 Univers 12.5 mg 8-10 mg by ity of tablet 15:53: mouth [address] [place] [address] (two) Medical times Branch daily with meals. carvediloL 2020-0 Yes 12.5mg Take 12.5 Univers 12.5 mg 8-10 mg by ity of tablet 15:53: mouth [address] [place] [address] (two) Medical times Branch daily with meals. carvediloL 2020-0 Yes 12.5mg Take 12.5 Univers 12.5 mg 8-10 mg by ity of tablet 15:53: mouth [address] [place] [address] (two) Medical times Branch daily with meals. carvediloL 2020-0 Yes 12.5mg Take 12.5 Univers 12.5 mg 8-10 mg by ity of tablet 15:53: mouth [address] [place] [address] (two) Medical times Branch daily with meals. carvediloL 2020-0 Yes 12.5mg Take 12.5 Univers 12.5 mg 8-10 mg by ity of tablet 15:53: mouth [address] [place] [address] (two) Medical times Branch daily with meals. carvediloL 2020-0 Yes 12.5mg Take 12.5 Univers 12.5 mg 8-10 mg by ity of tablet 15:53: mouth [address] [place] [address] (two) Medical times Branch daily with meals. carvediloL 2020-0 Yes 12.5mg Take 12.5 Univers 12.5 mg 8-10 mg by ity of tablet 15:53: mouth [address] [place] [address] (two) Medical times Branch daily with meals. carvediloL 2020-0 Yes 12.5mg Take 12.5 Univers 12.5 mg 8-10 mg by ity of tablet 15:53: mouth [address] [place] [address] (two) Medical times Branch daily with meals. metFORMIN 2020-0 Yes 1000mg Take 1,000 Univers 1,000 mg 8-10 mg by ity of tablet 11:04: mouth [address] [place] [address] (two) Medical times Branch daily with meals. carvediloL 2020-0 Yes 12.5mg Take 12.5 Univers 12.5 mg 8-10 mg by ity of tablet 10:53: mouth [address] [place] [address] (two) Medical times Branch daily with meals. venlafaxine 2020-0 Yes [id number] 37.5mg Take 1 Univers XR 37.5 mg 8-10 capsule by ity of 24 hr 00:00: mouth [place] capsule 00 daily with Medica l breakfast. Branch venlafaxine 2020-0 Yes [id number] 37.5mg Take 1 Univers XR 37.5 mg 8-10 capsule by ity of 24 hr 00:00: mouth [place] capsule 00 daily with Medica l breakfast. Branch venlafaxine 2020-0 Yes [id number] 37.5mg Take 1 Univers XR 37.5 mg 8-10 capsule by ity of 24 hr 00:00: mouth [place] capsule 00 daily with Medica l breakfast. Branch venlafaxine 2020-0 Yes [id number] 37.5mg Take 1 Univers XR 37.5 mg 8-10 capsule by ity of 24 hr 00:00: mouth [place] capsule 00 daily with Medica l breakfast. Branch venlafaxine 2020-0 Yes [id number] 37.5mg Take 1 Univers XR 37.5 mg 8-10 capsule by ity of 24 hr 00:00: mouth [place] capsule 00 daily with Medica l breakfast. Branch venlafaxine 2020-0 Yes [id number] 37.5mg Take 1 Univers XR 37.5 mg 8-10 capsule by ity of 24 hr 00:00: mouth [place] capsule 00 daily with Medica l breakfast. Branch venlafaxine 2020-0 Yes [id number] 37.5mg Take 1 Univers XR 37.5 mg 8-10 capsule by ity of 24 hr 00:00: mouth [place] capsule 00 daily with Medica l breakfast. Branch venlafaxine 2020-0 Yes [id number] 37.5mg Take 1 Univers XR 37.5 mg 8-10 capsule by ity of 24 hr 00:00: mouth [place] capsule 00 daily with Medica l breakfast. Branch venlafaxine 2020-0 2020- No [id number] 37.5mg Take 1 Univers XR 37.5 mg 8-10 11-06 capsule by it y of 24 hr 00:00: 00:00 mouth [place] capsule 00 :00 daily with Medica l breakfast. [place] mupirocin 2 2019-1 Yes Univer s % [...] s % ointment 2-11 ity of 00:00: [place] 00 Medical Branch mupirocin 2 2019-1 Yes Univer s % ointment 2-11 ity of 00:00: [place] 00 Medical Branch mupirocin 2 2019-1 Yes Univer s % ointment 2-11 ity of 00:00: [place] 00 Medical Branch mupirocin 2 2019-1 Yes Univer s % ointment 2-11 ity of 00:00: [place] 00 Medical Branch mupirocin 2 2019-1 Yes Univer s % ointment 2-11 ity of 00:00: [place] 00 Medical Branch mupirocin 2 2019-1 Yes Univer s % ointment 2-11 ity of 00:00: [place] 00 Medical Branch mupirocin 2 2019-1 Yes Univer s % ointment 2-11 ity of 00:00: [place] 00 Medical Branch mupirocin 2 2019-1 Yes Univer s % ointment 2-11 ity of 00:00: [place] 00 Medical Branch mupirocin 2 2019-1 Yes Univer s % ointment 2-11 ity of 00:00: [place] 00 Medical Branch mupirocin 2 2019-1 Yes Univer s % ointment 2-11 ity of 00:00: [place] 00 Medical Branch mupirocin 2 2019-1 Yes Univer s % ointment 2-11 ity of 00:00: [place] 00 Medical Branch mupirocin 2 2019-1 Yes Univer s % ointment 2-11 ity of 00:00: [place] 00 Medical Branch mupirocin 2 2019-1 Yes Univer s % ointment 2-11 ity of 00:00: [place] 00 Medical Branch mupirocin 2 2019-1 Yes Univer s % ointment 2-11 ity of 00:00: [place] 00 Medical Branch mupirocin 2 2019-1 Yes Univer s % ointment 2-11 ity of 00:00: [place] 00 Medical Branch XARELTO 20 2019-1 Yes TK 1 T PO Un mark mg tablet 1-27 ONCE DAILY ity of 00:00: [facility] XARELTO 20 2018-06 Yes TK 1 T PO Un mark mg tablet 1-27 ONCE DAILY ity of 00:00: [facility] XARELTO 2018-06 Yes TK 1 T PO Un mark mg tablet 1-27 ONCE DAILY ity of 00:00: [facility] Branch XARELTO 2018-06 Yes TK 1 T PO Un mark mg tablet 1-27 ONCE DAILY ity of 00:00: [facility] XARELTO 2018-06 Yes TK 1 T PO Un mark mg tablet 1-27 ONCE DAILY ity of 00:00: [facility] XARELTO 2018-06 Yes TK 1 T PO Un mark mg tablet 1-27 ONCE DAILY ity of 00:00: [facility] XARELTO 2018-06 Yes TK 1 T PO Un mark mg tablet 1-27 ONCE DAILY ity of 00:00: [facility] XARELTO 2018-06 Yes TK 1 T PO Un mark mg tablet 1-27 ONCE DAILY ity of 00:00: [facility] XARELTO 2018-06 Yes TK 1 T PO Un mark mg tablet 1-27 ONCE DAILY ity of 00:00: [facility] XARELTO 2018-06 Yes TK 1 T PO Un mark mg tablet 1-27 ONCE DAILY ity of 00:00: [facility] XARELTO 2018-06 Yes TK 1 T PO Un mark mg tablet 1-27 ONCE DAILY ity of 00:00: [facility] Branch XARELTO 2018-06 Yes TK 1 T PO Un mark mg tablet 1-27 ONCE DAILY ity of 00:00: [facility] XARELTO 2018-06 Yes TK 1 T PO Un mark mg tablet 1-27 ONCE DAILY ity of 00:00: [facility] XARELTO 2018-06 Yes TK 1 T PO Un mark mg tablet 1-27 ONCE DAILY ity of 00:00: [facility] XARELTO 2018-06 Yes TK 1 T PO Un mark mg tablet 1-27 ONCE DAILY ity of 00:00: [facility] XARELTO 20 2018- Yes TK 1 T PO Un mark mg tablet 1-27 ONCE DAILY ity of 00:00: [facility] XARELTO 20 2018-06 Yes TK 1 T PO Un mark mg tablet 1-27 ONCE DAILY ity of 00:00: [facility] XARELTO 20 2018-06 Yes TK 1 T PO Un mark mg tablet 1-27 ONCE DAILY ity of 00:00: [facility] XARELTO 20 2018-06 Yes TK 1 T PO Un mark mg tablet 1-27 ONCE DAILY ity of 00:00: [address] Simvastatin Simvastatin 2018- No Simvastati 40 MG 40 MG 1-06 n 40 MG 00:00: 00 levothyroxi 2018-06 Yes TK 1 T PO U nivers ne 88 mcg 1-06 QAM IN THE ity of tablet 00:00: MORNING [address] simvastatin 2018- Yes TK 1 T PO U nivers 40 mg 1-06 QHS ity of tablet 00:00: [address] levothyroxi 2018- Yes TK 1 T PO U nivers ne 88 mcg 1-06 QAM IN THE ity of tablet 00:00: MORNING [address] simvastatin 2018- Yes TK 1 T PO U nivers 40 mg 1-06 QHS ity of tablet 00:00: [address] simvastatin 2018- Yes TK 1 T PO U nivers 40 mg 1-06 QHS ity of tablet 00:00: [address] levothyroxi 2019- Yes TK 1 T PO U nivers ne 88 mcg 1-06 QAM IN THE ity of tablet 00:00: MORNING [address] simvastatin 2019- Yes TK 1 T PO U nivers 40 mg 1-06 QHS ity of tablet 00:00: [address] simvastatin 2019- Yes TK 1 T PO U nivers 40 mg 1-06 QHS ity of tablet 00:00: [address] simvastatin 2019- Yes TK 1 T PO U nivers 40 mg 1-06 QHS ity of tablet 00:00: [address] levothyroxi 2019- Yes TK 1 T PO U nivers ne 88 mcg 1-06 QAM IN THE ity of tablet 00:00: MORNING [address] simvastatin 2019- Yes TK 1 T PO U nivers 40 mg 1-06 QHS ity of tablet 00:00: [address] simvastatin 2019- Yes TK 1 T PO U nivers 40 mg 1-06 QHS ity of tablet 00:00: [address] simvastatin 2019- Yes TK 1 T PO U nivers 40 mg 1-06 QHS ity of tablet 00:00: [address] simvastatin 2019- Yes TK 1 T PO U nivers 40 mg 1-06 QHS ity of tablet 00:00: [address] simvastatin 2018- Yes TK 1 T PO U nivers 40 mg 1-06 QHS ity of tablet 00:00: [address] simvastatin 2018- Yes TK 1 T PO U nivers 40 mg 1-06 QHS ity of tablet 00:00: [address] levothyroxi 2018-06 Yes TK 1 T PO U nivers ne 88 mcg 1-06 QAM IN THE ity of tablet 00:00: MORNING [address] simvastatin 2018- Yes TK 1 T PO U nivers 40 mg 1-06 QHS ity of tablet 00:00: [address] levothyroxi 2018- Yes TK 1 T PO U nivers ne 88 mcg 1-06 QAM IN THE ity of tablet 00:00: MORNING [address] simvastatin 2018- Yes TK 1 T PO U nivers 40 mg 1-06 QHS ity of tablet 00:00: [address] levothyroxi 2019- Yes TK 1 T PO U nivers ne 88 mcg 1-06 QAM IN THE ity of tablet 00:00: MORNING [address] simvastatin 2018- Yes TK 1 T PO U nivers 40 mg 1-06 QHS ity of tablet 00:00: [address] levothyroxi 2019- Yes TK 1 T PO U nivers ne 88 mcg 1-06 QAM IN THE ity of tablet 00:00: MORNING [address] simvastatin 2018-06 Yes TK 1 T PO U nivers 40 mg 1-06 QHS ity of tablet 00:00: [address] levothyroxi 2018- Yes TK 1 T PO U nivers ne 88 mcg 1-06 QAM IN THE ity of tablet 00:00: MORNING [address] simvastatin 2019- Yes TK 1 T PO U nivers 40 mg 1-06 QHS ity of tablet 00:00: [address] levothyroxi 2019- Yes TK 1 T PO U nivers ne 88 mcg 1-06 QAM IN THE ity of tablet 00:00: MORNING [address] simvastatin 2019- Yes TK 1 T PO U nivers 40 mg 1-06 QHS ity of tablet 00:00: [address] levothyroxi 2019- Yes TK 1 T PO U nivers ne 88 mcg 1-06 QAM IN THE ity of tablet 00:00: MORNING [address] levothyroxi 2018- Yes TK 1 T PO U nivers ne 88 mcg 1-06 QAM IN THE ity of tablet 00:00: MORNING [address] simvastatin 2019- Yes TK 1 T PO U nivers 40 mg 1-06 QHS ity of tablet 00:00: [address] levothyroxi 2019- 2020- No TK 1 T PO Univers ne 88 mcg 1-06 08-14 QAM IN THE ity of tablet 00:00: 00:00 MORNING [place] 00 :00 [facility] losartan 2019- Yes TK 1 T PO Univ ers 100 mg 0-10 Q D ity of tablet 00:00: [address] losartan 2019- Yes TK 1 T PO Univ ers 100 mg 0-10 Q D ity of tablet 00:00: [address] losartan 2019- Yes TK 1 T PO Univ ers 100 mg 0-10 Q D ity of tablet 00:00: [address] losartan 2019- Yes TK 1 T PO Univ ers 100 mg 0-10 Q D ity of tablet 00:00: [address] losartan 2019- Yes TK 1 T PO Univ ers 100 mg 0-10 Q D ity of tablet 00:00: [address] losartan 2019- Yes TK 1 T PO Univ ers 100 mg 0-10 Q D ity of tablet 00:00: [address] losartan 2019- Yes TK 1 T PO Univ ers 100 mg 0-10 Q D ity of tablet 00:00: [address] losartan 2019- Yes TK 1 T PO Univ ers 100 mg 0-10 Q D ity of tablet 00:00: [place] 00 [facility] Branch losartan 2019- Yes TK 1 T PO Univ ers 100 mg 0-10 Q D ity of tablet 00:00: [place] 00 [facility] Branch losartan 2019- Yes TK 1 T PO Univ ers 100 mg 0-10 Q D ity of tablet 00:00: [place] [facility] [place] losartan 2019- Yes TK 1 T PO Univ ers 100 mg 0-10 Q D ity of tablet 00:00: [place] [facility] losartan 2019- Yes TK 1 T PO Univ ers 100 mg 0-10 Q D ity of tablet 00:00: [place] [facility] losartan 2019- Yes TK 1 T PO Univ ers 100 mg 0-10 Q D ity of tablet 00:00: [place] [facility] losartan 2019- Yes TK 1 T PO Univ ers 100 mg 0-10 Q D ity of tablet 00:00: [place] [facility] losartan 2019- Yes TK 1 T PO Univ ers 100 mg 0-10 Q D ity of tablet 00:00: [place] [facility] losartan 2019- Yes TK 1 T PO Univ ers 100 mg 0-10 Q D ity of tablet 00:00: [place] [facility] losartan 2019- Yes TK 1 T PO Univ ers 100 mg 0-10 Q D ity of tablet 00:00: [place] [facility] losartan 2019- Yes TK 1 T PO Univ ers 100 mg 0-10 Q D ity of tablet 00:00: [place] [facility] losartan 2019- Yes TK 1 T PO Univ ers 100 mg 0-10 Q D ity of tablet 00:00: [place] [facility] metoprolol 2019- Yes TK 1 T PO Un mark succinate 0-02 QD ity of XL 100 mg 00:00: [place] 24 hr Medical tablet Branch metoprolol 2019- Yes TK 1 T PO Un mark succinate 0-02 QD ity of XL 100 mg 00:00: [place] 24 hr Medical tablet Branch metoprolol 2019- Yes TK 1 T PO Un mark succinate 0-02 QD ity of XL 100 mg 00:00: [place] 24 hr Medical tablet Branch metoprolol 2018- Yes TK 1 T PO Un mark succinate 0-02 QD ity of XL 100 mg 00:00: [place] 24 hr Medical tablet Branch metoprolol 2018- Yes TK 1 T PO Un mark succinate 0-02 QD ity of XL 100 mg 00:00: 24 hr Medical tablet Branch metoprolol 2019 Yes TK 1 T PO Un mark succinate 0-02 QD ity of XL 100 mg 00:00: [place] 24 hr Medical tablet Branch metoprolol 2018-06 Yes TK 1 T PO Un mark succinate 0-02 QD ity of XL 100 mg 00:00: 24 hr Medical tablet Branch metoprolol 2018-06 Yes TK 1 T PO Un mark succinate 0-02 QD ity of XL 100 mg 00:00: 24 hr Medical tablet Branch metoprolol 2018-06 Yes TK 1 T PO Un mark succinate 0-02 QD ity of XL 100 mg 00:00: [place] 24 hr Medical tablet Branch metoprolol 2018-06 Yes TK 1 T PO Un mark succinate 0-02 QD ity of XL 100 mg 00:00: [place] 24 hr Medical tablet Branch metoprolol 2018-06 Yes TK 1 T PO Un mark succinate 0-02 QD ity of XL 100 mg 00:00: [place] 24 hr Medical tablet Branch metoprolol 2018-06 Yes TK 1 T PO Un mark succinate 0-02 QD ity of XL 100 mg 00:00: [place] 24 hr Medical tablet Branch metoprolol 2018-06 Yes TK 1 T PO Un mark succinate 0-02 QD ity of XL 100 mg 00:00: [place] 24 hr Medical tablet Branch metoprolol 2018-06 Yes TK 1 T PO Un mark succinate 0-02 QD ity of XL 100 mg 00:00: [place] 24 hr Medical tablet Branch metoprolol 2018-06 Yes TK 1 T PO Un mark succinate 0-02 QD ity of XL 100 mg 00:00: [place] 24 hr Medical tablet Branch metoprolol 2018-06 Yes TK 1 T PO Un mark succinate 0-02 QD ity of XL 100 mg 00:00: [place] 24 hr Medical tablet Branch metoprolol 2018-06 Yes TK 1 T PO Un mark succinate 0-02 QD ity of XL 100 mg 00:00: [place] 24 hr Medical tablet Branch metoprolol 2018-06 Yes TK 1 T PO Un mark succinate 0-02 QD ity of XL 100 mg 00:00: 24 hr Medical tablet Branch metoprolol 2018-06 Yes TK 1 T PO Un mark succinate 0-02 QD ity of XL 100 mg 00:00: [place] 24 hr 00 Medical tablet Branch metFORMIN metFORMIN No metFORMIN HCl 1000 MG HCl 1000 MG HCl 1000 MG Amiodarone Amiodarone No 1{table QD Amiodarone HCl 200 MG HCl 200 MG t} HCl 200 MG Atenolol 25 Atenolol 25 No QD Atenolol MG MG 25 MG Atorvastati Atorvastati No Atorvastat n Calcium n Calcium in Calcium 40 MG 40 MG 40 MG Venlafaxine Venlafaxine No Venlafaxin HCl ER 75 HCl ER 75 e HCl ER MG MG 75 MG Levothyroxi Levothyroxi No QD Levothyrox ne Sodium ne Sodium ine Sodium 88 MCG 88 MCG 88 MCG Vitamin D3 Vitamin D3 No 1{table Vitamin D3 50,000 IU 50,000 IU t} 50,000 IU Carvedilol Carvedilol No 1{table QD Carvedilol 12.5 MG 12.5 MG t_with_ 12.5 MG food} glipiZIDE glipiZIDE No glipiZIDE 10 MG 10 MG 10 MG Venlafaxine Venlafaxine No Venlafaxin HCl ER 75 HCl ER 75 e HCl ER 75 Aspir-81 81 Aspir-81 81 No 1{table QD Aspir-81 MG MG t} 81 MG Xarelto 20 Xarelto 20 No Xarelto 20 MG MG MG amLODIPine amLODIPine No 1{table QD amLODIPine Besylate 5 Besylate 5 t} Besylate 5 MG MG MG Atorvastati Atorvastati No Atorvastat n Calcium n Calcium in Calcium 40 MG 40 MG 40 MG Xarelto 20 Xarelto 20 No Xarelto 20 MG MG MG Venlafaxine Venlafaxine No 1{capsu QD Venlafaxin HCl ER 75 HCl ER 75 le_with e HCl ER _food} 75 traZODone traZODone No QD traZODone HCl 50 MG HCl 50 MG HCl 50 MG Xarelto 20 Xarelto 20 No 1{table QD Xarelto 20 MG MG t_with_ MG food} amLODIPine amLODIPine No 1{table QD amLODIPine Besylate 5 Besylate 5 t} Besylate 5 MG MG MG metFORMIN metFORMIN No metFORMIN HCl 1000 MG HCl 1000 MG HCl 1000 MG Aspir-81 81 Aspir-81 81 No 1{table QD Aspir-81 MG MG t} 81 MG metFORMIN metFORMIN No 1{table BID metFORMIN HCl 1000 MG HCl 1000 MG t_with_ HCl 1000 a_meal} MG Amiodarone Amiodarone No 1{table QD Amiodarone HCl 200 MG HCl 200 MG t} HCl 200 MG Atorvastati Atorvastati No 1{table QD Atorvastat n Calcium n Calcium t} in Calcium 40 MG 40 MG 40 MG Carvedilol Carvedilol No 1{table QD Carvedilol 12.5 MG 12.5 MG t_with_ 12.5 MG food} glipiZIDE glipiZIDE No glipiZIDE 10 MG 10 MG 10 MG glipiZIDE glipiZIDE No 1{table BID glipiZIDE 10 MG 10 MG t_with_ 10 MG food} Atenolol 25 Atenolol 25 No QD Atenolol MG MG 25 MG Atorvastati Atorvastati No Atorvastat n Calcium n Calcium in Calcium 40 MG 40 MG 40 MG Atorvastati Atorvastati No 1{table QD Atorvastat n Calcium n Calcium t} in Calcium 40 MG 40 MG 40 MG Aspir-81 81 Aspir-81 81 No 1{table QD Aspir-81 MG MG t} 81 MG Carvedilol Carvedilol No 1{table QD Carvedilol 12.5 MG 12.5 MG t_with_ 12.5 MG food} Venlafaxine Venlafaxine No 1{capsu QD Venlafaxin HCl ER 75 HCl ER 75 le_with e HCl ER _food} 75 metFORMIN metFORMIN No metFORMIN HCl 1000 MG HCl 1000 MG HCl 1000 MG traZODone traZODone No QD traZODone HCl 50 MG HCl 50 MG HCl 50 MG Atenolol 25 Atenolol 25 No QD Atenolol MG MG 25 MG amLODIPine amLODIPine No 1{table QD amLODIPine Besylate 5 Besylate 5 t} Besylate 5 MG MG MG Xarelto 20 Xarelto 20 No 1{table QD Xarelto 20 MG MG t_with_ MG food} Amiodarone Amiodarone No 1{table QD Amiodarone HCl 200 MG HCl 200 MG t} HCl 200 MG Xarelto 20 Xarelto 20 No Xarelto 20 MG MG MG glipiZIDE glipiZIDE No glipiZIDE 10 MG 10 MG 10 MG metFORMIN metFORMIN No 1{table BID metFORMIN HCl 1000 MG HCl 1000 MG t_with_ HCl 1000 a_meal} MG Atorvastati Atorvastati No Atorvastat n Calcium n Calcium in Calcium 40 MG 40 MG 40 MG metFORMIN metFORMIN No 1{table BID metFORMIN HCl 1000 MG HCl 1000 MG t_with_ HCl 1000 a_meal} MG Amiodarone Amiodarone No 1{table QD Amiodarone HCl 200 MG HCl 200 MG t} HCl 200 MG Venlafaxine Venlafaxine No 1{capsu QD Venlafaxin HCl ER 75 HCl ER 75 le_with e HCl ER _food} 75 metFORMIN metFORMIN No metFORMIN HCl 1000 MG HCl 1000 MG HCl 1000 MG Carvedilol Carvedilol No 1{table QD Carvedilol 12.5 MG 12.5 MG t_with_ 12.5 MG food} glipiZIDE glipiZIDE No glipiZIDE 10 MG 10 MG 10 MG Atenolol 25 Atenolol 25 No QD Atenolol MG MG 25 MG Atorvastati Atorvastati No 1{table QD Atorvastat n Calcium n Calcium t} in Calcium 40 MG 40 MG 40 MG Aspir-81 81 Aspir-81 81 No 1{table QD Aspir-81 MG MG t} 81 MG Xarelto 20 Xarelto 20 No Xarelto 20 MG MG MG traZODone traZODone No QD traZODone HCl 50 MG HCl 50 MG HCl 50 MG amLODIPine amLODIPine No 1{table QD amLODIPine Besylate 5 Besylate 5 t} Besylate 5 MG MG MG Xarelto 20 Xarelto 20 No 1{table QD Xarelto 20 MG MG t_with_ MG food} Atorvastati Atorvastati No Atorvastat n Calcium n Calcium in Calcium 40 MG 40 MG 40 MG metFORMIN metFORMIN No 1{table BID metFORMIN HCl 1000 MG HCl 1000 MG t_with_ HCl 1000 a_meal} MG Amiodarone Amiodarone No 1{table QD Amiodarone HCl 200 MG HCl 200 MG t} HCl 200 MG Venlafaxine Venlafaxine No 1{capsu QD Venlafaxin HCl ER 75 HCl ER 75 le_with e HCl ER _food} 75 metFORMIN metFORMIN No metFORMIN HCl 1000 MG HCl 1000 MG HCl 1000 MG Carvedilol Carvedilol No 1{table QD Carvedilol 12.5 MG 12.5 MG t_with_ 12.5 MG food} glipiZIDE glipiZIDE No glipiZIDE 10 MG 10 MG 10 MG Atenolol 25 Atenolol 25 No QD Atenolol MG MG 25 MG Atorvastati Atorvastati No 1{table QD Atorvastat n Calcium n Calcium t} in Calcium 40 MG 40 MG 40 MG Aspir-81 81 Aspir-81 81 No 1{table QD Aspir-81 MG MG t} 81 MG Xarelto 20 Xarelto 20 No Xarelto 20 MG MG MG traZODone traZODone No QD traZODone HCl 50 MG HCl 50 MG HCl 50 MG amLODIPine amLODIPine No 1{table QD amLODIPine Besylate 5 Besylate 5 t} Besylate 5 MG MG MG Xarelto 20 Xarelto 20 No 1{table QD Xarelto 20 MG MG t_with_ MG food} Amiodarone Amiodarone No 1{table QD Amiodarone HCl 200 MG HCl 200 MG t} HCl 200 MG Venlafaxine Venlafaxine No 1{capsu QD Venlafaxin HCl ER 75 HCl ER 75 le_with e HCl ER _food} 75 Carvedilol Carvedilol No 1{table QD Carvedilol 12.5 MG 12.5 MG t_with_ 12.5 MG food} Xarelto 20 Xarelto 20 No Xarelto 20 MG MG MG Xarelto 20 Xarelto 20 No 1{table QD Xarelto 20 MG MG t_with_ MG food} metFORMIN metFORMIN No 1{table BID metFORMIN HCl 1000 MG HCl 1000 MG t_with_ HCl 1000 a_meal} MG Atorvastati Atorvastati No Atorvastat n Calcium n Calcium in Calcium 40 MG 40 MG 40 MG traZODone traZODone No QD traZODone HCl 100 MG HCl 100 MG HCl 100 MG Atorvastati Atorvastati No 1{table QD Atorvastat n Calcium n Calcium t} in Calcium 40 MG 40 MG 40 MG amLODIPine amLODIPine No 1{table QD amLODIPine Besylate 5 Besylate 5 t} Besylate 5 MG MG MG metFORMIN metFORMIN No metFORMIN HCl 1000 MG HCl 1000 MG HCl 1000 MG Atenolol 25 Atenolol 25 No QD Atenolol MG MG 25 MG glipiZIDE glipiZIDE No 1{table BID glipiZIDE 10 MG 10 MG t_with_ 10 MG food} Aspir-81 81 Aspir-81 81 No 1{table QD Aspir-81 MG MG t} 81 MG Levothyroxi Levothyroxi No QD Levothyrox ne Sodium ne Sodium ine Sodium 75 MCG 75 MCG 75 MCG glipiZIDE glipiZIDE No glipiZIDE 10 MG 10 MG 10 MG Venlafaxine Venlafaxine No 1{capsu QD Venlafaxin HCl ER 75 HCl ER 75 le_with e HCl ER _food} 75 Carvedilol Carvedilol No 1{table QD Carvedilol 12.5 MG 12.5 MG t_with_ 12.5 MG food} metFORMIN metFORMIN No 1{table BID metFORMIN HCl 1000 MG HCl 1000 MG t_with_ HCl 1000 a_meal} MG Atorvastati Atorvastati No Atorvastat n Calcium n Calcium in Calcium 40 MG 40 MG 40 MG glipiZIDE glipiZIDE No glipiZIDE 10 MG 10 MG 10 MG Atorvastati Atorvastati No 1{table QD Atorvastat n Calcium n Calcium t} in Calcium 40 MG 40 MG 40 MG Levothyroxi Levothyroxi No QD Levothyrox ne Sodium ne Sodium ine Sodium 75 MCG 75 MCG 75 MCG glipiZIDE glipiZIDE No 1{table BID glipiZIDE 10 MG 10 MG t_with_ 10 MG food} Amiodarone Amiodarone No 1{table QD Amiodarone HCl 200 MG HCl 200 MG t} HCl 200 MG traZODone traZODone No QD traZODone HCl 100 MG HCl 100 MG HCl 100 MG Aspir-81 81 Aspir-81 81 No 1{table QD Aspir-81 MG MG t} 81 MG amLODIPine amLODIPine No 1{table QD amLODIPine Besylate 5 Besylate 5 t} Besylate 5 MG MG MG Atenolol 25 Atenolol 25 No QD Atenolol MG MG 25 MG metFORMIN metFORMIN No metFORMIN HCl 1000 MG HCl 1000 MG HCl 1000 MG Xarelto 20 Xarelto 20 No 1{table QD Xarelto 20 MG MG t_with_ MG food} Xarelto 20 Xarelto 20 No Xarelto 20 MG MG MG glipiZIDE glipiZIDE No glipiZIDE 10 MG 10 MG 10 MG Levothyroxi Levothyroxi No QD Levothyrox ne Sodium ne Sodium ine Sodium 75 MCG 75 MCG 75 MCG amLODIPine amLODIPine No 1{table QD amLODIPine Besylate 5 Besylate 5 t} Besylate 5 MG MG MG Amiodarone Amiodarone No 1{table QD Amiodarone HCl 200 MG HCl 200 MG t} HCl 200 MG Aspir-81 81 Aspir-81 81 No 1{table QD Aspir-81 MG MG t} 81 MG metFORMIN metFORMIN No 1{table BID metFORMIN HCl 1000 MG HCl 1000 MG t_with_ HCl 1000 a_meal} MG Venlafaxine Venlafaxine No 1{capsu QD Venlafaxin HCl ER 75 HCl ER 75 le_with e HCl ER _food} 75 Atorvastati Atorvastati No 1{table QD Atorvastat n Calcium n Calcium t} in Calcium 40 MG 40 MG 40 MG Xarelto 20 Xarelto 20 No Xarelto 20 MG MG MG glipiZIDE glipiZIDE No 1{table BID glipiZIDE 10 MG 10 MG t_with_ 10 MG food} traZODone traZODone No QD traZODone HCl 100 MG HCl 100 MG HCl 100 MG Xarelto 20 Xarelto 20 No 1{table QD Xarelto 20 MG MG t_with_ MG food} Atorvastati Atorvastati No Atorvastat n Calcium n Calcium in Calcium 40 MG 40 MG 40 MG Carvedilol Carvedilol No 1{table QD Carvedilol 12.5 MG 12.5 MG t_with_ 12.5 MG food} Atenolol 25 Atenolol 25 No QD Atenolol MG MG 25 MG metFORMIN metFORMIN No metFORMIN HCl 1000 MG HCl 1000 MG HCl 1000 MG glipiZIDE glipiZIDE No glipiZIDE 10 MG 10 MG 10 MG Levothyroxi Levothyroxi No QD Levothyrox ne Sodium ne Sodium ine Sodium 75 MCG 75 MCG 75 MCG amLODIPine amLODIPine No 1{table QD amLODIPine Besylate 5 Besylate 5 t} Besylate 5 MG MG MG Amiodarone Amiodarone No 1{table QD Amiodarone HCl 200 MG HCl 200 MG t} HCl 200 MG Aspir-81 81 Aspir-81 81 No 1{table QD Aspir-81 MG MG t} 81 MG metFORMIN metFORMIN No 1{table BID metFORMIN HCl 1000 MG HCl 1000 MG t_with_ HCl 1000 a_meal} MG Venlafaxine Venlafaxine No 1{capsu QD Venlafaxin HCl ER 75 HCl ER 75 le_with e HCl ER _food} 75 Atorvastati Atorvastati No 1{table QD Atorvastat n Calcium n Calcium t} in Calcium 40 MG 40 MG 40 MG Xarelto 20 Xarelto 20 No Xarelto 20 MG MG MG glipiZIDE glipiZIDE No 1{table BID glipiZIDE 10 MG 10 MG t_with_ 10 MG food} traZODone traZODone No QD traZODone HCl 100 MG HCl 100 MG HCl 100 MG Xarelto 20 Xarelto 20 No 1{table QD Xarelto 20 MG MG t_with_ MG food} Atorvastati Atorvastati No Atorvastat n Calcium n Calcium in Calcium 40 MG 40 MG 40 MG Carvedilol Carvedilol No 1{table QD Carvedilol 12.5 MG 12.5 MG t_with_ 12.5 MG food} Atenolol 25 Atenolol 25 No QD Atenolol MG MG 25 MG metFORMIN metFORMIN No metFORMIN HCl 1000 MG HCl 1000 MG HCl 1000 MG Venlafaxine Venlafaxine No 1{capsu QD Venlafaxin HCl ER 75 HCl ER 75 le_with e HCl ER _food} 75 traZODone traZODone No QD traZODone HCl 100 MG HCl 100 MG HCl 100 MG Levothyroxi Levothyroxi No QD Levothyrox ne Sodium ne Sodium ine Sodium 75 MCG 75 MCG 75 MCG Aspir-81 81 Aspir-81 81 No 1{table QD Aspir-81 MG MG t} 81 MG Amiodarone Amiodarone No 1{table QD Amiodarone HCl 200 MG HCl 200 MG t} HCl 200 MG amLODIPine amLODIPine No 1{table QD amLODIPine Besylate 5 Besylate 5 t} Besylate 5 MG MG MG metFORMIN metFORMIN No 1{table BID metFORMIN HCl 1000 MG HCl 1000 MG t_with_ HCl 1000 a_meal} MG Xarelto 20 Xarelto 20 No 1{table QD Xarelto 20 MG MG t_with_ MG food} glipiZIDE glipiZIDE No glipiZIDE 10 MG 10 MG 10 MG glipiZIDE glipiZIDE No 1{table BID glipiZIDE 10 MG 10 MG t_with_ 10 MG food} Atorvastati Atorvastati No 1{table QD Atorvastat n Calcium n Calcium t} in Calcium 40 MG 40 MG 40 MG metFORMIN metFORMIN No metFORMIN HCl 1000 MG HCl 1000 MG HCl 1000 MG Xarelto 20 Xarelto 20 No Xarelto 20 MG MG MG Carvedilol Carvedilol No 1{table QD Carvedilol 12.5 MG 12.5 MG t_with_ 12.5 MG food} Atenolol 25 Atenolol 25 No QD Atenolol MG MG 25 MG Atorvastati Atorvastati No Atorvastat n Calcium n Calcium in Calcium 40 MG 40 MG 40 MG Venlafaxine Venlafaxine No 1{capsu QD Venlafaxin HCl ER 75 HCl ER 75 le_with e HCl ER _food} 75 traZODone traZODone No QD traZODone HCl 100 MG HCl 100 MG HCl 100 MG Levothyroxi Levothyroxi No QD Levothyrox ne Sodium ne Sodium ine Sodium 75 MCG 75 MCG 75 MCG Aspir-81 81 Aspir-81 81 No 1{table QD Aspir-81 MG MG t} 81 MG Amiodarone Amiodarone No 1{table QD Amiodarone HCl 200 MG HCl 200 MG t} HCl 200 MG amLODIPine amLODIPine No 1{table QD amLODIPine Besylate 5 Besylate 5 t} Besylate 5 MG MG MG metFORMIN metFORMIN No 1{table BID metFORMIN HCl 1000 MG HCl 1000 MG t_with_ HCl 1000 a_meal} MG Xarelto 20 Xarelto 20 No 1{table QD Xarelto 20 MG MG t_with_ MG food} glipiZIDE glipiZIDE No glipiZIDE 10 MG 10 MG 10 MG glipiZIDE glipiZIDE No 1{table BID glipiZIDE 10 MG 10 MG t_with_ 10 MG food} Atorvastati Atorvastati No 1{table QD Atorvastat n Calcium n Calcium t} in Calcium 40 MG 40 MG 40 MG metFORMIN metFORMIN No metFORMIN HCl 1000 MG HCl 1000 MG HCl 1000 MG Xarelto 20 Xarelto 20 No Xarelto 20 MG MG MG Carvedilol Carvedilol No 1{table QD Carvedilol 12.5 MG 12.5 MG t_with_ 12.5 MG food} Atenolol 25 Atenolol 25 No QD Atenolol MG MG 25 MG Atorvastati Atorvastati No Atorvastat n Calcium n Calcium in Calcium 40 MG 40 MG 40 MG Aspir-81 81 Aspir-81 81 No 1{table QD Aspir-81 MG MG t} 81 MG Venlafaxine Venlafaxine No 1{capsu QD Venlafaxin HCl ER 75 HCl ER 75 le_with e HCl ER _food} 75 glipiZIDE glipiZIDE No glipiZIDE 10 MG 10 MG 10 MG Xarelto 20 Xarelto 20 No 1{table QD Xarelto 20 MG MG t_with_ MG food} glipiZIDE glipiZIDE No 1{table BID glipiZIDE 10 MG 10 MG t_with_ 10 MG food} metFORMIN metFORMIN No 1{table BID metFORMIN HCl 1000 MG HCl 1000 MG t_with_ HCl 1000 a_meal} MG Amiodarone Amiodarone No 1{table QD Amiodarone HCl 200 MG HCl 200 MG t} HCl 200 MG amLODIPine amLODIPine No 1{table QD amLODIPine Besylate 5 Besylate 5 t} Besylate 5 MG MG MG Xarelto 20 Xarelto 20 No Xarelto 20 MG MG MG Atenolol 25 Atenolol 25 No QD Atenolol MG MG 25 MG Atorvastati Atorvastati No Atorvastat n Calcium n Calcium in Calcium 40 MG 40 MG 40 MG Levothyroxi Levothyroxi No QD Levothyrox ne Sodium ne Sodium ine Sodium 75 MCG 75 MCG 75 MCG Atorvastati Atorvastati No 1{table QD Atorvastat n Calcium n Calcium t} in Calcium 40 MG 40 MG 40 MG Carvedilol Carvedilol No 1{table QD Carvedilol 12.5 MG 12.5 MG t_with_ 12.5 MG food} metFORMIN metFORMIN No metFORMIN HCl 1000 MG HCl 1000 MG HCl 1000 MG traZODone traZODone No QD traZODone HCl 100 MG HCl 100 MG HCl 100 MG traZODone traZODone No QD traZODone HCl 100 MG HCl 100 MG HCl 100 MG Xarelto 20 Xarelto 20 No Xarelto 20 MG MG MG Atenolol 25 Atenolol 25 No QD Atenolol MG MG 25 MG amLODIPine amLODIPine No 1{table QD amLODIPine Besylate 5 Besylate 5 t} Besylate 5 MG MG MG metFORMIN metFORMIN No metFORMIN HCl 1000 MG HCl 1000 MG HCl 1000 MG glipiZIDE glipiZIDE No glipiZIDE 10 MG 10 MG 10 MG Amiodarone Amiodarone No 1{table QD Amiodarone HCl 200 MG HCl 200 MG t} HCl 200 MG Carvedilol Carvedilol No 1{table QD Carvedilol 12.5 MG 12.5 MG t_with_ 12.5 MG food} Atorvastati Atorvastati No 1{table QD Atorvastat n Calcium n Calcium t} in Calcium 40 MG 40 MG 40 MG Xarelto 20 Xarelto 20 No 1{table QD Xarelto 20 MG MG t_with_ MG food} Atorvastati Atorvastati No Atorvastat n Calcium n Calcium in Calcium 40 MG 40 MG 40 MG metFORMIN metFORMIN No 1{table BID metFORMIN HCl 1000 MG HCl 1000 MG t_with_ HCl 1000 a_meal} MG Aspir-81 81 Aspir-81 81 No 1{table QD Aspir-81 MG MG t} 81 MG Venlafaxine Venlafaxine No 1{capsu QD Venlafaxin HCl ER 75 HCl ER 75 le_with e HCl ER _food} 75 glipiZIDE glipiZIDE No 1{table BID glipiZIDE 10 MG 10 MG t_with_ 10 MG food} Levothyroxi Levothyroxi No QD Levothyrox ne Sodium ne Sodium ine Sodium 75 MCG 75 MCG 75 MCG Levothyroxi Levothyroxi No Levothyrox ne Sodium ne Sodium ine Sodium 75 MCG 75 MCG 75 MCG amLODIPine amLODIPine No 1{table QD amLODIPine Besylate 5 Besylate 5 t} Besylate 5 MG MG MG Atenolol 25 Atenolol 25 No QD Atenolol MG MG 25 MG metFORMIN metFORMIN No metFORMIN HCl 1000 MG HCl 1000 MG HCl 1000 MG glipiZIDE glipiZIDE No glipiZIDE 10 MG 10 MG 10 MG Amiodarone Amiodarone No 1{table QD Amiodarone HCl 200 MG HCl 200 MG t} HCl 200 MG Carvedilol Carvedilol No 1{table QD Carvedilol 12.5 MG 12.5 MG t_with_ 12.5 MG food} Aspir-81 81 - 81 No 1{table QD Aspir-81 MG MG t} 81 MG Xarelto 20 Xarelto 20 No 1{table QD Xarelto 20 MG MG t_with_ MG food} Venlafaxine Venlafaxine No 1{capsu QD Venlafaxin HCl ER 75 HCl ER 75 le_with e HCl ER MG MG _food} 75 MG metFORMIN metFORMIN No 1{table BID metFORMIN HCl 1000 MG HCl 1000 MG t_with_ HCl 1000 a_meal} MG Xarelto 20 Xarelto 20 No Xarelto 20 MG MG MG Atorvastati Atorvastati No Atorvastat n Calcium n Calcium in Calcium 40 MG 40 MG 40 MG glipiZIDE glipiZIDE No 1{table BID glipiZIDE 10 MG 10 MG t_with_ 10 MG food} traZODone traZODone No traZODone HCl 50 MG HCl 50 MG HCl 50 MG Levothyroxi Levothyroxi No Levothyrox ne Sodium ne Sodium ine Sodium 75 MCG 75 MCG 75 MCG amLODIPine amLODIPine No 1{table QD amLODIPine Besylate 5 Besylate 5 t} Besylate 5 MG MG MG Atenolol 25 Atenolol 25 No QD Atenolol MG MG 25 MG metFORMIN metFORMIN No metFORMIN HCl 1000 MG HCl 1000 MG HCl 1000 MG glipiZIDE glipiZIDE No glipiZIDE 10 MG 10 MG 10 MG Amiodarone Amiodarone No 1{table QD Amiodarone HCl 200 MG HCl 200 MG t} HCl 200 MG Carvedilol Carvedilol No 1{table QD Carvedilol 12.5 MG 12.5 MG t_with_ 12.5 MG food} -- 81 No 1{table QD Aspir-81 MG MG t} 81 MG Xarelto 20 Xarelto 20 No 1{table QD Xarelto 20 MG MG t_with_ MG food} Venlafaxine Venlafaxine No 1{capsu QD Venlafaxin HCl ER 75 HCl ER 75 le_with e HCl ER MG MG _food} 75 MG metFORMIN metFORMIN No 1{table BID metFORMIN HCl 1000 MG HCl 1000 MG t_with_ HCl 1000 a_meal} MG Xarelto 20 Xarelto 20 No Xarelto 20 MG MG MG Atorvastati Atorvastati No Atorvastat n Calcium n Calcium in Calcium 40 MG 40 MG 40 MG glipiZIDE glipiZIDE No 1{table BID glipiZIDE 10 MG 10 MG t_with_ 10 MG food} traZODone traZODone No traZODone HCl 50 MG HCl 50 MG HCl 50 MG Atenolol 25 Atenolol 25 No QD Atenolol MG MG 25 MG Amiodarone Amiodarone No 1{table QD Amiodarone HCl 200 MG HCl 200 MG t} HCl 200 MG glipiZIDE glipiZIDE No glipiZIDE 10 MG 10 MG 10 MG Xarelto 20 Xarelto 20 No Xarelto 20 MG MG MG Venlafaxine Venlafaxine No 1{capsu QD Venlafaxin HCl ER 75 HCl ER 75 le_with e HCl ER _food} 75 Levothyroxi Levothyroxi No QD Levothyrox ne Sodium ne Sodium ine Sodium 75 MCG 75 MCG 75 MCG Aspir-81 81 Aspir-81 81 No 1{table QD Aspir-81 MG MG t} 81 MG Venlafaxine Venlafaxine No 1{capsu QD Venlafaxin HCl ER 75 HCl ER 75 le_with e HCl ER MG MG _food} 75 MG traZODone traZODone No QD traZODone HCl 50 MG HCl 50 MG HCl 50 MG metFORMIN metFORMIN No 1{table BID metFORMIN HCl 1000 MG HCl 1000 MG t_with_ HCl 1000 a_meal} MG metFORMIN metFORMIN No metFORMIN HCl 1000 MG HCl 1000 MG HCl 1000 MG glipiZIDE glipiZIDE No 1{table BID glipiZIDE 10 MG 10 MG t_with_ 10 MG food} amLODIPine amLODIPine No 1{table QD amLODIPine Besylate 5 Besylate 5 t} Besylate 5 MG MG MG Levothyroxi Levothyroxi No Levothyrox ne Sodium ne Sodium ine Sodium 75 MCG 75 MCG 75 MCG Carvedilol Carvedilol No 1{table QD Carvedilol 12.5 MG 12.5 MG t_with_ 12.5 MG food} Xarelto 20 Xarelto 20 No 1{table QD Xarelto 20 MG MG t_with_ MG food} traZODone traZODone No traZODone HCl 50 MG HCl 50 MG HCl 50 MG Atorvastati Atorvastati No Atorvastat n Calcium n Calcium in Calcium 40 MG 40 MG 40 MG Atorvastati Atorvastati No 1{table QD Atorvastat n Calcium n Calcium t} in Calcium 40 MG 40 MG 40 MG Atenolol 25 Atenolol 25 No QD Atenolol MG MG 25 MG Amiodarone Amiodarone No 1{table QD Amiodarone HCl 200 MG HCl 200 MG t} HCl 200 MG glipiZIDE glipiZIDE No glipiZIDE 10 MG 10 MG 10 MG Xarelto 20 Xarelto 20 No Xarelto 20 MG MG MG Venlafaxine Venlafaxine No 1{capsu QD Venlafaxin HCl ER 75 HCl ER 75 le_with e HCl ER _food} 75 Levothyroxi Levothyroxi No QD Levothyrox ne Sodium ne Sodium ine Sodium 75 MCG 75 MCG 75 MCG Aspir-81 81 Aspir-81 81 No 1{table QD Aspir-81 MG MG t} 81 MG Venlafaxine Venlafaxine No 1{capsu QD Venlafaxin HCl ER 75 HCl ER 75 le_with e HCl ER MG MG _food} 75 MG traZODone traZODone No QD traZODone HCl 50 MG HCl 50 MG HCl 50 MG metFORMIN metFORMIN No 1{table BID metFORMIN HCl 1000 MG HCl 1000 MG t_with_ HCl 1000 a_meal} MG metFORMIN metFORMIN No metFORMIN HCl 1000 MG HCl 1000 MG HCl 1000 MG glipiZIDE glipiZIDE No 1{table BID glipiZIDE 10 MG 10 MG t_with_ 10 MG food} amLODIPine amLODIPine No 1{table QD amLODIPine Besylate 5 Besylate 5 t} Besylate 5 MG MG MG Levothyroxi Levothyroxi No Levothyrox ne Sodium ne Sodium ine Sodium 75 MCG 75 MCG 75 MCG Carvedilol Carvedilol No 1{table QD Carvedilol 12.5 MG 12.5 MG t_with_ 12.5 MG food} Xarelto 20 Xarelto 20 No 1{table QD Xarelto 20 MG MG t_with_ MG food} traZODone traZODone No traZODone HCl 50 MG HCl 50 MG HCl 50 MG Atorvastati Atorvastati No Atorvastat n Calcium n Calcium in Calcium 40 MG 40 MG 40 MG Atorvastati Atorvastati No 1{table QD Atorvastat n Calcium n Calcium t} in Calcium 40 MG 40 MG 40 MG glipiZIDE glipiZIDE No glipiZIDE 10 MG 10 MG 10 MG Atenolol 25 Atenolol 25 No QD Atenolol MG MG 25 MG glipiZIDE glipiZIDE No 1{table BID glipiZIDE 10 MG 10 MG t_with_ 10 MG food} Aspir-81 81 Aspir-81 81 No 1{table QD Aspir-81 MG MG t} 81 MG amLODIPine amLODIPine No 1{table QD amLODIPine Besylate 5 Besylate 5 t} Besylate 5 MG MG MG metFORMIN metFORMIN No 1{table BID metFORMIN HCl 1000 MG HCl 1000 MG t_with_ HCl 1000 a_meal} MG Levothyroxi Levothyroxi No QD Levothyrox ne Sodium ne Sodium ine Sodium 75 MCG 75 MCG 75 MCG Xarelto 20 Xarelto 20 No 1{table QD Xarelto 20 MG MG t_with_ MG food} metFORMIN metFORMIN No metFORMIN HCl 1000 MG HCl 1000 MG HCl 1000 MG Atorvastati Atorvastati No Atorvastat n Calcium n Calcium in Calcium 40 MG 40 MG 40 MG Atorvastati Atorvastati No 1{table QD Atorvastat n Calcium n Calcium t} in Calcium 40 MG 40 MG 40 MG Xarelto 20 Xarelto 20 No Xarelto 20 MG MG MG Levothyroxi Levothyroxi No Levothyrox ne Sodium ne Sodium ine Sodium 75 MCG 75 MCG 75 MCG Carvedilol Carvedilol No 1{table QD Carvedilol 12.5 MG 12.5 MG t_with_ 12.5 MG food} Amiodarone Amiodarone No 1{table QD Amiodarone HCl 200 MG HCl 200 MG t} HCl 200 MG Atenolol 25 Atenolol 25 No QD Atenolol MG MG 25 MG Amiodarone Amiodarone No 1{table QD Amiodarone HCl 200 MG HCl 200 MG t} HCl 200 MG glipiZIDE glipiZIDE No glipiZIDE 10 MG 10 MG 10 MG Xarelto 20 Xarelto 20 No Xarelto 20 MG MG MG Venlafaxine Venlafaxine No 1{capsu QD Venlafaxin HCl ER 75 HCl ER 75 le_with e HCl ER _food} 75 Levothyroxi Levothyroxi No QD Levothyrox ne Sodium ne Sodium ine Sodium 75 MCG 75 MCG 75 MCG Aspir-81 81 Aspir-81 81 No 1{table QD Aspir-81 MG MG t} 81 MG Venlafaxine Venlafaxine No 1{capsu QD Venlafaxin HCl ER 75 HCl ER 75 le_with e HCl ER MG MG _food} 75 MG traZODone traZODone No QD traZODone HCl 50 MG HCl 50 MG HCl 50 MG metFORMIN metFORMIN No 1{table BID metFORMIN HCl 1000 MG HCl 1000 MG t_with_ HCl 1000 a_meal} MG metFORMIN metFORMIN No metFORMIN HCl 1000 MG HCl 1000 MG HCl 1000 MG glipiZIDE glipiZIDE No 1{table BID glipiZIDE 10 MG 10 MG t_with_ 10 MG food} amLODIPine amLODIPine No 1{table QD amLODIPine Besylate 5 Besylate 5 t} Besylate 5 MG MG MG Levothyroxi Levothyroxi No Levothyrox ne Sodium ne Sodium ine Sodium 75 MCG 75 MCG 75 MCG Carvedilol Carvedilol No 1{table QD Carvedilol 12.5 MG 12.5 MG t_with_ 12.5 MG food} Xarelto 20 Xarelto 20 No 1{table QD Xarelto 20 MG MG t_with_ MG food} traZODone traZODone No traZODone HCl 50 MG HCl 50 MG HCl 50 MG Atorvastati Atorvastati No Atorvastat n Calcium n Calcium in Calcium 40 MG 40 MG 40 MG Atorvastati Atorvastati No 1{table QD Atorvastat n Calcium n Calcium t} in Calcium 40 MG 40 MG 40 MG Immunizations Ordered Immunization Filled Immunization Date Status Commen ts Source Name Name Adacel (Tdap) Adacel (Tdap) 2019-06-02 Completed [facility] 11:[facility] - [facility] Adacel (Tdap) Adacel (Tdap) 2019-06-02 Completed [facility]:18:00 - [facility] Adacel (Tdap) Adacel (Tdap) 2019-06-02 Completed [facility] 11:18:00 - [facility] Adacel (Tdap) Adacel (Tdap) 2019-06-02 Completed [facility] 11:18:00 - [facility] Adacel (Tdap) Adacel (Tdap) 2019-06-02 Completed [facility] 11:18:00 - [facility] Adacel (Tdap) Adacel (Tdap) 2019-06-02 Completed [facility] 11:18:00 - [facility] Adacel (Tdap) Adacel (Tdap) 2019-06-02 Completed [facility] 11:18:00 - [facility] Adacel (Tdap) Adacel (Tdap) 2019-06-02 Completed [facility] 11:18:00 - [facility] Adacel (Tdap) Adacel (Tdap) 2019-06-02 Completed [facility] 11:18:00 - [facility] Adacel (Tdap) Adacel (Tdap) 2019-06-02 Completed [facility]:18:00 - [facility] Adacel (Tdap) Adacel (Tdap) 2019-06-02 Completed [facility] 11:18:00 - [facility] Adacel (Tdap) Adacel (Tdap) 2019-06-02 Completed [facility] 11:18:00 - [facility] Adacel (Tdap) Adacel (Tdap) 2019-06-02 Completed [facility] 11:18:00 - [facility] Adacel (Tdap) Adacel (Tdap) 2019-06-02 Completed [facility] 11:18:00 - [facility] Adacel (Tdap) Adacel (Tdap) 2019-06-02 Completed [facility] 11:18:00 - [facility] Adacel (Tdap) Adacel (Tdap) 2019-06-02 Completed [facility] 11:18:00 - [facility] Adacel (Tdap) Adacel (Tdap) 2019-06-02 Completed [facility] 11:18:00 - [facility] Adacel (Tdap) Adacel (Tdap) 2019-06-02 Completed [facility] 11:18:00 - [facility] Adacel (Tdap) Adacel (Tdap) 2019-06-02 Completed [facility] 11:18:00 - [facility] pheumocococcal pheumocococcal 2019-04-26 Completed [facility] - [facility] pheumocococcal pheumocococcal 2019-04-26 Completed [facility] 00:[facility] - [facility] pheumocococcal pheumocococcal 2019-04-26 Completed [facility] 00:00:00 - [facility] pheumocococcal pheumocococcal 2019-04-26 Completed [facility] 00:00:00 - [facility] pheumocococcal pheumocococcal 2019-04-26 Completed [facility] 00:00:00 - [facility] pheumocococcal pheumocococcal 2019-04-26 Completed [facility] 00:00:00 - [facility] pheumocococcal pheumocococcal 2019-04-26 Completed [facility] 00:00:00 - [facility] pheumocococcal pheumocococcal 2019-04-26 Completed [facility] 00:00:00 - [facility] pheumocococcal pheumocococcal 2019-04-26 Completed [facility] 00:00:00 - [facility] pheumocococcal pheumocococcal 2019-04-26 Completed [facility] 00:00:00 - [facility] pheumocococcal pheumocococcal 2019-04-26 Completed [facility] 00:00:00 - [facility] pheumocococcal pheumocococcal 2019-04-26 Completed [facility] 00:00:00 - [facility] pheumocococcal pheumocococcal 2019-04-26 Completed [facility] 00:00:00 - [facility] pheumocococcal pheumocococcal 2019-04-26 Completed [facility] 00:00:00 - [facility] pheumocococcal pheumocococcal 2019-04-26 Completed [facility] 00:00:00 - [facility] pheumocococcal pheumocococcal 2019-04-26 Completed [facility] 00:00:00 - [facility] pheumocococcal pheumocococcal 2019-04-26 Completed [facility] 00:00:00 - [facility] pheumocococcal pheumocococcal 2019-04-26 Completed [facility] 00:00:00 - [facility] pheumocococcal pheumocococcal 2019-04-26 Completed [facility] 00:00:00 - [facility] Vital Signs Vital Name Observation Time Observation Value Comments Source height 2022-03-26 10:40:00 69 [in_i] [facility] weight 2022-03-26 10:40:00 140.8 [lb_av] [facility] temperature 2022-03-26 10:40:00 97.4 [degF] [facility] bmi 2022-03-26 10:40:00 20.79 kg/m2 [facility] oximetry 2022-03-26 10:40:00 98 % [facility] respiratory rate 2022-03-26 10:40:00 16 /min Comm on [facility] blood pressure 2022-03-26 10:40:00 132 mm[Hg] [facility] - systolic [facility] blood pressure 2022-03-26 10:40:00 68 mm[Hg] [facility] - diastolic [facility] respiratory rate 2022-03-26 11:20:00 16 /min Comm on [facility] blood pressure 2022-03-26 11:20:00 132 mm[Hg] Common [facility] - systolic [facility] blood pressure 2022-03-26 11:20:00 68 mm[Hg] Common [facility] - diastolic [facility] height 2022-03-26 11:20:00 69 [in_i] [facility] weight 2022-03-26 11:20:00 140.8 [lb_av] [facility] temperature 2022-03-26 11:20:00 97.4 [degF] [facility] bmi 2022-03-26 11:20:00 20.79 kg/m2 [facility] oximetry 2022-03-26 11:20:00 98 % [facility] height 2021-08-16 10:00:00 69 [in_i] [facility] weight 2021-08-16 10:00:00 150 [lb_av] [facility] bmi 2021-08-16 10:00:00 22.15 kg/m2 [facility] blood pressure 2021-08-16 10:00:00 148 mm[Hg] [facility] - systolic [facility] blood pressure 2021-08-16 10:00:00 84 mm[Hg] [facility] - diastolic [facility] height 2021-07-26 10:00:00 69 [in_i] [facility] weight 2021-07-26 10:00:00 150 [lb_av] [facility] bmi 2021-07-26 10:00:00 22.15 kg/m2 [facility] blood pressure 2021-07-26 10:00:00 150 mm[Hg] [facility] - systolic [facility] blood pressure 2021-07-26 10:00:00 80 mm[Hg] [facility] - diastolic [facility] height 2021-07-12 10:00:00 69 [in_i] [facility] weight 2021-07-12 10:00:00 150 [lb_av] [facility] bmi 2021-07-12 10:00:00 22.15 kg/m2 [facility] blood pressure 2021-07-12 10:00:00 152 mm[Hg] [facility] - systolic [facility] blood pressure 2021-07-12 10:00:00 82 mm[Hg] [facility] - diastolic [facility] height 2021-06-28 14:20:00 69 [in_i] [facility] weight 2021-06-28 14:20:00 150 [lb_av] [facility] bmi 2021-06-28 14:20:00 22.15 kg/m2 [facility] blood pressure 2021-06-28 14:20:00 156 mm[Hg] [facility] - systolic [facility] blood pressure 2021-06-28 14:20:00 78 mm[Hg] [facility] - diastolic [facility] height 2021-06-04 14:00:00 69 [in_i] [facility] weight 2021-06-04 14:00:00 150 [lb_av] [facility] bmi 2021-06-04 14:00:00 22.15 kg/m2 [facility] blood pressure 2021-06-04 14:00:00 156 mm[Hg] [facility] - systolic [facility] blood pressure 2021-06-04 14:00:00 78 mm[Hg] [facility] - diastolic [facility] height 2021-05-24 11:20:00 69 [in_i] [facility] weight 2021-05-24 11:20:00 155 [lb_av] [facility] temperature 2021-05-24 11:20:00 97.4 [degF] [facility] bmi 2021-05-24 11:20:00 22.89 kg/m2 [facility] oximetry 2021-05-24 11:20:00 99 % [facility] 2021-05-24 11:20:00 19 /min Comm on [facility] blood pressure 2021-05-24 11:20:00 134 mm[Hg] [facility] - systolic [facility] blood pressure 2021-05-24 11:20:00 74 mm[Hg] [facility] - diastolic [facility] Systolic blood 2020-01-31 15:04:00 167 mm[Hg] Univer sity of pressure [facility] Diastolic blood 2020-01-31 15:04:00 86 mm[Hg] Unive rsity of pressure [facility] Heart rate 2020-01-31 15:03:00 82 /min Universi ty of [facility] Body temperature 2020-01-31 15:03:00 35.89 Kaye Univ ersity of [facility] Respiratory rate 2020-01-31 15:03:00 20 /min Univ ersity of [facility] Body height 2020-01-31 15:03:00 175.3 cm Universi ty of [facility] Body weight 2020-01-31 15:03:00 71.668 kg Universi ty of [facility] BMI 2020-01-31 15:03:00 23.33 kg/m2 [facility]i ty [facility] Oxygen saturation in 2020-01-31 15:03:00 95 /min University of Arterial blood by [facility] Pulse oximetry Branch Systolic blood 2019-07-15 18:59:00 121 mm[Hg] Univer sity of pressure [facility] Diastolic blood 2019-07-15 18:59:00 67 mm[Hg] Unive rsity of pressure [facility] Heart rate 2019-07-15 18:59:00 80 /min [facility] Body height 2019-07-15 18:59:00 172.7 cm [facility] Body weight 2019-07-15 18:59:00 73.936 kg [facility] BMI 2019-07-15 18:59:00 24.78 kg/m2 Universi ty [facility] Systolic blood 2019-07-15 18:59:00 121 mm[Hg] Univer sity of pressure [facility] Diastolic blood 2019-07-15 18:59:00 67 mm[Hg] Unive rsity of pressure [facility] Heart rate 2019-07-15 18:59:00 80 /min [facility]i [facility] Body height 2019-07-15 18:59:00 172.7 cm [facility] Body weight 2019-07-15 18:59:00 73.936 kg [facility] BMI 2019-07-15 18:59:00 24.78 kg/m2 [facility] Procedures Procedure Date / Time Performing Clinician Source Performed [id number] 2021-12-04 00:00:00 [facility] [id number] 2021-12-04 00:00:00 [facility] [id number] 2021-12-04 00:00:00 [facility] [id number] 2021-12-04 00:00:00 [facility] [id number] 2021-12-04 00:00:00 [facility] [id number] 2021-10-26 00:00:00 [facility] [id number] 2021-10-26 00:00:00 [facility] [id number] 2021-10-26 00:00:00 [facility] [id number] 2021-10-26 00:00:00 [facility] [id number] 2021-10-26 00:00:00 [facility] [id number] 2021-10-26 00:00:00 [facility] REFERRAL- 2020-04-13 05:01:00 Doctor Unassigned, No [facility] REQUEST/RESPONSE Name Medical Branch VITAMIN B12, LEVEL 2020-01-31 17:09:00 Chantel Chung [facility] Medical [place] FOLATE 2020-01-31 17:09:00 Chantel Chung [facility] FREE T4 2020-01-31 17:09:00 Chantel Chung [facility] THYROID STIMULATING 2020-01-31 17:09:00 Chantel Chung [facility] HORMONE A Medical Branch COMP. METABOLIC PANEL 2020-01-31 17:09:00 [id number] LIPID PANEL 2020-01-31 17:09:00 Chantel Chung [facility] ([id number])(TOTAL A Medical Branch CHOLESTEROL, TRIGLYCERIDES, HDL) CBC WITH DIFF 2020-01-31 17:09:00 Chantel Chung [facility] A Medical Branch GLYCOSYLATED HEMOGLOBIN 2020-01-31 17:09:00 [facility] [place] HCV ANTIBODY 2020-01-31 17:09:00 Chantel Chung [facility] Medical Branch HIGH SENSITIVITY CRP 2020-01-31 17:09:00 Chantel Chung [facility] Medical Branch HOMOCYSTEINE 2020-01-31 17:09:00 Chantel Chung [facility] Medical Branch VITAMIN D, 25-OH 2020-01-31 17:09:00 Chantel Chung [facility] Medical Branch FREE T3 2020-01-31 17:09:00 Chantel Chung [facility] Medical Branch ASSIGNMENT OF BENEFITS 2020-01-31 16:43:42 Doctor Unassigned, No [facility] Name Medical Branch REFERRAL- 2019-08-26 06:01:00 Doctor Unassigned, No [facility] REQUEST/RESPONSE Name Medical Branch REFERRAL- 2019-08-05 06:01:00 Doctor Unassigned, No [facility] REQUEST/RESPONSE Name Medical Branch XR WRIST <3 VW RIGHT 2019-07-15 19:00:31 Alejandro Sharpe [facility] Medical Branch Encounters Start End Encounter Admission Attending Care Care Encounter Source Date/Time Date/Time Type Type Clinicians Facility Department ID 2022-04-05 [id number] 14:21:01 [facility] 2022-03-22 [facility] [id number] 2 Common 13:35:01 [facility] 2021-11-30 Outpatient Arredondo, Na STLMLC STLMLC [id number] Common 13:35:01 [facility] 2021-11-28 Outpatient Arredondo, Na STLMLC STLMLC [id number] Common 15:37:02 [facility] 2021-11-14 Outpatient Arredondo, Na STLMLC STLMLC [id number] 2 Common 15:35:00 [facility] 2021-08-13 Outpatient Arredondo, Na STLMLC STLMLC [id number] 2 Common 09:46:02 [facility] 2021-07-18 Outpatient Arredondo, Na STLMLC STLMLC [id number] 2 Common 14:30:11 [facility] 2021-07-18 Outpatient Arredondo, Na STLMLC STLMLC [id number] 2 Common 14:29:41 [id number] [facility] 2021-07-18 Outpatient Arredondo, Na STLMLC STLMLC [id number] 2 Common 14:29:06 [id number] [facility] 2021-07-18 Outpatient Arredondo, Na STLMLC STLMLC [id number] 2 Common 14:26:07 [id number] [facility] 2021-07-18 Outpatient Arredondo, Na STLMLC STLMLC [id number] 2 Common 14:24:17 [id number] [facility] 2021-07-18 Outpatient Arredondo, Na STLMLC STLMLC [id number] 2 Common 14:20:50 [id number] [facility] 2021-07-18 Outpatient Arredondo, Na STLMLC STLMLC [id number] 2 Common 14:19:23 [id number] [facility] 2021-07-18 Outpatient Arredondo, Na STLMLC STLMLC [id number] 2 Common 12:10:18 [id number] [facility] 2022-04-05 2022-04-05 (TEL) STLMLC STLMLC [id number] Co mmon 00:00:00 00:00:00 [facility] 2022-03-26 2022-03-26 OFFICE STLMLC STLMLC [id number] Co mmon 00:00:00 00:00:00 VISIT EST Spir it PT LEVEL 3 - [facility] 2022-03-26 2022-03-26 SUB ANNUAL STLMLC STLMLC [id number] Common 00:00:00 00:00:00 MCR [facility] WELLNESS - CHI VISIT [facility] 2021-12-04 2021-12-07 Inpatient EL Michaelelvirasean [facility] [id number] [facility] 10:45:00 15:59:00 Ady 58 [facility] 2021-12-04 2021-12-07 Inpatient EL Michaelwillie, [facility] [id number] [facility] 10:45:00 15:59:00 Ady [id number] [facility] 2021-12-03 2021-12-03 Outpatient WALKER WolfgangQuocwillieLUANWU [facility] [id number] [facility] 11:02:00 11:02:00 Ady [id number] [facility] 2021-12-03 2021-12-03 Outpatient WALKER Audrey [facility] [id number] [facility] 11:02:00 11:02:00 Ady 78 [facility] 2021-11-14 2021-11-14 (TEL) STLMLC STLMLC [id number] Co mmon 00:00:00 00:00:00 [facility] 2021-11-01 2021-11-01 (TEL) STLMLC STLMLC [id number] Co mmon 00:00:00 00:00:00 [facility] - [facility] 2021-10-26 2021-10-29 Inpatient EL Audrey [facility] [id number] [facility] 17:53:00 12:44:00 Ady 70 [facility] 2021-10-26 2021-10-29 Inpatient EL LUAN VenturaWU INTE [id number] [facility] 17:53:00 12:44:00 Ady [id number] [facility] 2021-10-20 2021-10-20 Outpatient EL Anahi [facility] [id number] [facility] 03:37:00 03:37:00 [facility] 00 [facility] 2021-08-16 2021-08-16 Postop STLMLC STLMLC [id number] Co mmon 00:00:00 00:00:00 visit [facility] 2021-08-03 2021-08-03 (TEL) STLMLC STLMLC [id number] Co mmon 00:00:00 00:00:00 [facility] 2021-07-27 2021-07-27 (TEL) STLMLC STLMLC [id number] Co mmon 00:00:00 00:00:00 [facility] 2021-07-26 2021-07-26 Postop STLMLC STLMLC [id number] Co mmon 00:00:00 00:00:00 visit [facility] 2021-07-12 2021-07-12 Postop STLMLC STLMLC [id number] Co mmon 00:00:00 00:00:00 visit [facility] 2021-07-11 2021-07-11 (TEL) STLMLC STLMLC [id number] Co mmon 00:00:00 00:00:00 [facility] 2021-06-28 2021-06-28 Postop STLMLC STLMLC [id number] Co mmon 00:00:00 00:00:00 visit [facility] 2021-06-25 2021-06-25 OL DIG E/M STLMLC STLMLC [id number] Common 00:00:00 00:00:00 SVC 11-20 Spir it [facility] 2021-06-12 2021-06-12 (TEL) STLMLC STLMLC [id number] Co mmon 00:00:00 00:00:00 [facility] 2021-06-05 2021-06-05 (TEL) STLMLC STLMLC [id number] Co mmon 00:00:00 00:00:00 [facility] 2021-06-04 2021-06-04 OFFICE STLMLC STLMLC [id number] Co mmon 00:00:00 00:00:00 VISIT EST Spir it PT LEVEL 3 - [facility] 2021-05-24 2021-05-24 OFFICE STLMLC STLMLC [id number] Co mmon 00:00:00 00:00:00 VISIT Spirit ESTAB PT - CHI LEVEL 4 [facility] 2021-05-15 2021-05-[address] [facility] 1.2.840.114 [id number] Univers 00:00:00 00:00:00 [place] [id number] i ty of [facility] [phone] [place] dic[address] 2021-05-15 2021-05-15 (TEL) STLMLC STLMLC [id number] Co mmon 00:00:00 00:00:00 [facility] 2020-11-14 2020-11-14 Outpatient STLMLC STLMLC [id number] Common 00:00:00 00:00:00 [facility] 2020-08-15 2020-08-15 Outpatient STLMLC STLMLC [id number] Common 00:00:00 00:00:00 [facility] 2020-06-02 2020-06-02 Outpatient STLMLC STLMLC [id number] Common 00:00:00 00:00:00 [facility] 2020-05-25 2020-05-25 Outpatient STLMLC STLMLC [id number] Common 00:00:00 00:00:00 [facility] 2020-04-25 2020-04-25 [facility] [id number] Univers 00:00:00 00:00:00 Chantel Banks [id number] ity [id number] [phone] [place] dical nal [address] [place] [address] 2020-04-13 2020-04-13 Telephone [facility] 1.2.840.114 [id number] Univers 00:00:00 00:00:00 Chantel Banks [id number] [id number] [phone] [address] 2020-04-13 2020-04-13 Orders Doctor KATARINA 1.2.840.114 [id number] Univers 00:00:00 00:00:00 Only Unassigned, MARIANGEL [id number] ity of [place] [facility] [id number] Sushant as [phone] [address] 2020-04-06 2020-04-06 Out[facility] [id number] Univers 13:00:00 13:00:00 [facility] 2020-02-25 2020-02-25 [id number] Univers 15:20:00 15:20:00 [facility] 2020-02-23 2020-02-23 Telephone [facility] 1.2.840.114 [id number] Univers 00:00:00 00:00:00 Chantel Banks [id number] ity [facility] [id number] [phone] [address] 2020-02-22 2020-02-22 [facility] [id number] Univers 16:20:00 16:20:00 [facility] 2020-02-10 2020-02-10 Outpatient [facility] [id number] Univers 16:20:00 16:20:00 [facility] 2020-02-10 2020-02-10 Telephone [facility] 1.2.840.114 [id number] Univers 00:00:00 00:00:00 Chantel Banks [id number] [id number] [phone] [address] 2020-02-04 2020-02-04 [facility] 1.2.840.114 [id number] Univers 00:00:00 00:00:00 Management Chantel Banks [id number] [id number] [phone] [facility] 231 [facility] 2020-01-31 2020-01-31 Reinforcing Rod Layer [facility] Main [facility] 1.2.8 40.114 [id number] [facility] 11:42:35 11:57:35 Visit Chantel Chung 350.1. 13.10 [place] of [id number] [phone] [facility] 353 [facility] 2020-01-31 2020-01-31 Office [facility] 1.2.840.114 [id number] [facility] 09:52:31 11:08:26 Visit Chantel Banks [id number] ity of [id number] [phone] [address] 2020-01-31 2020-01-31 [id number] [facility] 09:40:00 09:40:00 CHANTEL price [facility] 2020-01-31 2020-01-31 Orders Doctor KATARINA 1.2.840.114 [id number] Univers 00:00:00 00:00:00 Only Unassigned, MARIANGEL [id number] ity of [place] [facility] [id number] Sushant as [phone] [address] 2019-08-27 2019-08-27 Telephone [facility] 1.2.840.114 [id number] Univers 00:00:00 00:00:00 Chantel Banks [id number] [place] of [id number] [phone] [facility] 231 [facility] 2019-08-26 2019-08-26 Orders Doctor KATARINA 1.2.840.114 [id number] Univers 00:00:00 00:00:00 Only Unassigned, MARIANGEL [id number] ity of [place] [facility] [id number] Sushant as [phone] [address] 2019-08-23 2019-08-23 Outpatient Alondra, [facility] [id number] [facility] 09:00:00 09:00:00 Skinny 04 [facility] 2019-08-19 2019-08-19 Outpatient Alondra, [facility] [id number] [facility] 13:00:00 13:00:00 Skinny 16 [facility] 2019-08-06 2019-08-06 Telephone [facility] 1.2.840.114 [id number] 00:00:00 00:00:00 Chantel Banks [id number] [place] [id number] Professio [phone] [address] 2019-08-06 2019-08-06 Telephone [facility] 1.2.840.114 [id number] Univers 00:00:00 00:00:00 Chantel Banks [id number] ity of [id number] [phone] [place] dical [address] 2019-08-05 2019-08-05 Orders Doctor KATARINA 1.2.840.114 [id number] Univers 00:00:00 00:00:00 Only Unassigned, MARIANGEL [id number] ity of [place] [facility] [id number] Sushant as [phone] [address] 2019-07-15 2019-07-15 [facility] 1.2.840.114 [id number] 13:00:00 23:59:00 Encounter [facility] [id number] Surgical [id number] Specialti [phone] es [address] [place] 2019-07-15 2019-07-15 [facility] 1.2.840.114 [id number] Univers 13:00:00 23:59:00 Encounter [facility] 350.1.13.10 ity of Surgical 4.2.7.2.686 Sushant as Specialti [phone] Tx dical es [address] [place] [address] 2019-07-15 2019-07-15 Office [facility] 1.2.840.114 [id number] 12:38:26 12:53:26 Visit [facility] 350.1.13.10 Surgical 4.2.7.2.686 Specialti [phone] es [address] 2019-07-15 2019-07-15 Office [facility] 1.2.840.114 [id number] Univers 12:38:26 12:53:26 Visit [facility] 350.1.13.10 it y of Surgical 4.2.7.2.686 Sushant as Specialti [phone] Tx dical es [address] [facility] 2019-07-15 2019-07-15 Letter [facility] 1.2.840.114 [id number] 00:00:00 00:00:00 (Out) [facility] 350.1.13.10 Surgical 4.2.7.2.686 Specialti [phone] es [address] 2019-07-15 2019-07-15 [facility] 1.2.840.114 [id number] Univers 00:00:00 00:00:00 (Out) [facility] 350.1.13.10 it y of Surgical 4.2.7.2.686 Sushant as Specialti [phone] Tx dical es 198 [facility] ([facility] Results Test Description Test Time Test Comments Results Result Comments Source GLYCOSYLATED HEMOGLOBIN PANEL 2021-12-07 12:07:00 Test Item Value Reference Range Interpretation Comme nts GLYCOSYLATED HEMOGLOBIN (HA1C) 5.7 % 4.8-5.9 N Any condition that shortens (test code = GLYHGB) erythoc yte survival or decreasesmean e rythrocyte age (e.g., recovery from acute blood loss,hemolytic anemia) will falsely lower HGBA1c re sultsregardless of the method used . HGBA1c results from patientswi th HbSS, HbCC, and HbSc must be in terpreted with cautiongiven th e pathological processes, incl uding anemia,increase d red cell turnover, transfusion req uirements, thatadversely i mpact HGBA1c as a marker of long- term glycemiccontrol . Alternative forms of testing such as fructosaminesho uld be considered for these patie nts. MEAN BLOOD GLUCOSE (test code 117 MG/DL 70-110 H = MBG) UNABLE TO DRAW BLOOD, REASON: CBNNOTIFIED PATIENT CARE STAFF: JENNY LUZ 12/07/21 AT 0822 BY Domo Uribe LAV TOP TUBE SENTGLUCOSE BEDSIDE [id number] 11:14:00 Test Item Value Reference Range Interpretation Comments GLUCOSE BEDSIDE TESTING (test code 109 MG/DL 60-99 H = GLUBED) GLUCOSE BEDSIDE [id number] 07:31:00 Test Item Value Reference Range Interpretation Comments GLUCOSE BEDSIDE TESTING (test code 171 MG/DL 60-99 H = GLUBED) BASIC METABOLIC [id number] 06:36:00 Test Item Value Reference Range Interpretation Comments SODIUM (test code = 138 MMOL/L 137-145 N NA) POTASSIUM (test code = 3.3 MMOL/L 3.5-5.1 L K) CHLORIDE (test code = 103 MMOL/L 98-107 N CL) CARBON DIOXIDE (test 28 MMOL/L 22-30 N code = CO2) ANION GAP (test code = 10 MMOL/L 14-24 L GAP) GLUCOSE (test code = 135 MG/DL 74-106 H GLU) BLOOD UREA NITROGEN 8 MG/DL 7-17 N (test code = BUN) GLOMERULAR FILTRATION > 60 Report ing units: RATE (test code = GFR) ml/mi n/1.73 m2 (Modified MDRD Formula)Referen ce Range: > or = 6 0 ml/min/1.73 m2 CREATININE (test code 0.60 MG/DL 0.52-1.04 N = CREAT) CALCIUM (test code = 9.0 MG/DL 8.4-10.2 N CA) [id number] 06:36:00 Test Item Value Reference Range Interpretation Comments MAGNESIUM (test code = MAG) 2.1 MG/DL 1.6-2.3 GLUCOSE BEDSIDE [id number] 16:53:00 Test Item Value Reference Range Interpretation Comments GLUCOSE BEDSIDE TESTING (test code 136 MG/DL 60-99 H = GLUBED) GLUCOSE BEDSIDE [id number] 11:22:00 Test Item Value Reference Range Interpretation Comments GLUCOSE BEDSIDE TESTING (test code 146 MG/DL 60-99 H = GLUBED) BASIC METABOLIC [id number] 10:53:00 Test Item Value Reference Range Interpretation Comments SODIUM (test code = 138 MMOL/L 137-145 N NA) POTASSIUM (test code = 3.2 MMOL/L 3.5-5.1 L K) CHLORIDE (test code = 105 MMOL/L 98-107 N CL) CARBON DIOXIDE (test 25 MMOL/L 22-30 N code = CO2) ANION GAP (test code = 11 MMOL/L 14-24 L GAP) GLUCOSE (test code = 262 MG/DL 74-106 H GLU) BLOOD UREA NITROGEN 6 MG/DL 7-17 L (test code = BUN) GLOMERULAR FILTRATION > 60 Report ing units: RATE (test code = GFR) ml/mi n/1.73 m2 (Modified MDRD Formula)Referen ce Range: > or = 6 0 ml/min/1.73 m2 CREATININE (test code 0.60 MG/DL 0.52-1.04 N = CREAT) CALCIUM (test code = 8.3 MG/DL 8.4-10.2 L CA) UNABLE TO DRAW BLOOD, REASON: CBNNOTIFIED PATIENT CARE STAFF: JENNY LUZ 12/06/21 AT 0921 BY Bogdan Uribe to Double Ending Machine Operator: BLOOD SENT TO [id number] 10:53:00 Test Item Value Reference Range Interpretation Comments MAGNESIUM (test code = MAG) 1.5 MG/DL 1.6-2.3 L UNABLE TO DRAW BLOOD, REASON: CBNNOTIFIED PATIENT CARE STAFF: JENNY LUZ 12/06/21 AT 0921 BY Bogdan Uribe to Double Ending Machine Operator: BLOOD SENT TO [facility] W/AUTO [id number] 10:41:00 Test Item Value Reference Range Interpretation Comments WHITE BLOOD CELL (test code = 11.3 K/MM3 3.8-9.8 H WBC) RED BLOOD CELL (test code = 3.43 M/MM3 3.58-4.97 L RBC) HEMOGLOBIN (test code = HGB) 10.0 G/DL 11.2-14.9 L HEMATOCRIT (test code = HCT) 31.7 % 33.2-43.5 L MEAN CELL VOLUME (test code = 92 fL 80.7-99.1 N MCV) MEAN CELL HGB (test code = MCH) 29.2 pg 27.0-34.1 N MEAN CELL HGB CONCETRATION 31.5 % 32.2-35.7 L (test code = MCHC) RED CELL DISTRIBUTION WIDTH 13.2 % 12.1-15.2 N (test code = RDW) PLATELET COUNT (test code = 164 K/MM3 129-368 PLT) MEAN PLATELET VOLUME (test code 11.1 fl 7.4-10.4 H = MPV) NEUTROPHIL % (test code = NT%) 77.6 % 43-75 H IMMATURE GRANULOCYTE % (test 0.3 % 0.0-2.0 N code = IG%) LYMPHOCYTE % (test code = LY%) 12.1 % 14-44 L MONOCYTE % (test code = MO%) 9.6 % 4-13 N EOSINOPHIL % (test code = EO%) 0.2 % 0-6 N BASOPHIL % (test code = BA%) 0.2 % 0-2 N NUCLEATED RBC % (test code = 0.0 % 0-1.0 N NRBC%) NEUTROPHIL # (test code = NT#) 8.75 K/mm3 2.0-7.6 H IMMATURE GRANULOCYTE # (test 0.03 x10 3/uL 0-0.03 N code = IG#) LYMPHOCYTE # (test code = LY#) 1.36 K/mm3 1.0-3.8 N MONOCYTE # (test code = MO#) 1.08 K/mm3 0.1-0.8 H EOSINOPHIL # (test code = EO#) 0.02 K/mm3 0.0-0.2 N BASOPHIL # (test code = BA#) 0.02 K/mm3 0.0-0.2 N NUCLEATED RBC # (test code = 0.00 K/mm3 0.0-0.1 N NRBC#) UNABLE TO DRAW BLOOD, REASON: CBNNOTIFIED PATIENT CARE STAFF: JENNY LUZ 12/06/21 AT 0922 BY Maryann UribeaGLUCOSE BEDSIDE [id number] 06:18:00 Test Item Value Reference Range Interpretation Comments GLUCOSE BEDSIDE TESTING (test code 175 MG/DL 60-99 H = GLUBED) GLUCOSE BEDSIDE [id number] 16:40:00 Test Item Value Reference Range Interpretation Comments GLUCOSE BEDSIDE TESTING (test code 163 MG/DL 60-99 H = GLUBED) - SP AORTOGM ABD [id number] 15:34:00 [facility] 1945 Sex: F Patient Name: ALBA KAUR Unit No: [id number] EXAMS: CPT CODE: [id number] SP AORTOGM ABD W/FILM 04499 EXAMINATION: - SP AORTOGM ABD W/FILM, - XR FLUOROSCOPY OR . LOCATION: B2. HISTORY: ABDOMINAL AORTIC ANEURYSM. TECHNIQUE: Intraoperative fluoroscopy was utilized during surgery. Total reference air kerma was 95.95mGy. FINDINGS/ IMPRESSION: Intraoperative fluoroscopy was utilized during surgery. Please refer to operative report for detail. Electronically Signed by Charis Aiken MD on 2at 1534 Reported and signed by: Charis Aiken MD CC: Ady Ventura MD; Skinny Cantu Technologist: Forest Savage RT(R); Nancy Trotter (RT)(R) Transcrpt Date/Tm/Trnsp: 12/05/2021 (1534) t.SDR.PR7 Orig Print D/T: S: 12/05/2021 (1537) [facility] NAME: ALBA KAUR [address] PHYS: [place] [address] : 1945 AGE: 76 SEX: F LOC: Z.SI03 A PHONE #: [phone] EXAM DATE: 12/04/2021 STATUS: ADM IN FAX #: [phone] RADIOLOGY NO:PAGE 1 Signed Report GLUCOSE BEDSIDE [id number] 11:54:00 Test Item Value Reference Range Interpretation Comments GLUCOSE BEDSIDE TESTING (test code 179 MG/DL 60-99 H = GLUBED) GLUCOSE BEDSIDE [id number] 11:49:00 Test Item Value Reference Range Interpretation Comments GLUCOSE BEDSIDE TESTING (test code 168 MG/DL 60-99 H = GLUBED) CREATININE W ESTIMATED [id number] 10:02:00 Test Item Value Reference Range Interpretation Comments BEDSIDE CREATININE 0.9 MG/DL 0.6-1.4 N (test code = CREATBED) GLOMERULAR FILTRATION 61 39-90 N Report ing units: RATE POC (test code = ml/min /1.73 m2 GFRBED) (Modified MDRD Formula)Referen ce Range: > or = 6 0 ml/min/1.73 m2 - XR CHEST [id number] 08:26:00 [facility] : 1945 Sex: F Patient Name: ALBA KAUR Unit No: [id number] EXAMS: CPT CODE: [id number] XR CHEST 1V 66298 B2 EXAM: - XR CHEST 1V DATE: 12/05/2021 5:00 AM HISTORY: post op COMPARISON: Chest x-ray 12/04/2021 FINDINGS:Interval blunting of both costophrenic sulci due to pleural effusion. Subsegmental atelectasis in both lung bases. Stable position of the right subclavian central venous line. No pneumothorax. The cardio vascular silhouette is within normal limits. IMPRESSION: New bilateral pleural effusions and subsegmental atelectasis in both lung bases Electronically Signed by Hansa Ramos MD on 11/21 at 0826 Reported and signed by: Hansa Ramos MD CC: Trinity NASH; Skinny Cantu Technologist: Bola Moyer (RT) Transcrpt Date/Tm/Trnsp: 12/05/2021 (825) Nabeel Orig Print D/T: S: 12/05/2021 (829) [facility] NAME: ALBA KAUR [address] PHYS: [place] [address] : 1945 AGE: 76 SEX: F LOC: Z.SI03 A PHONE #: [phone] EXAM DATE: 12/05/2021 STATUS: ADM IN FAX #: [phone] RADIOLOGY NO: PAGE 1 Signed ReportBASIC METABOLIC [id number] 06:11:00 Test Item Value Reference Range Interpretation Comments SODIUM (test code = 138 MMOL/L 137-145 N NA) POTASSIUM (test code = 3.3 MMOL/L 3.5-5.1 L K) CHLORIDE (test code = 104 MMOL/L 98-107 N CL) CARBON DIOXIDE (test 30 MMOL/L 22-30 N code = CO2) ANION GAP (test code = 7 MMOL/L 14-24 L GAP) GLUCOSE (test code = 149 MG/DL 74-106 H GLU) BLOOD UREA NITROGEN 6 MG/DL 7-17 L (test code = BUN) GLOMERULAR FILTRATION > 60 Report ing units: RATE (test code = GFR) ml/mi n/1.73 m2 (Modified MDRD Formula)Referen ce Range: > or = 6 0 ml/min/1.73 m2 CREATININE (test code 0.60 MG/DL 0.52-1.04 N = CREAT) CALCIUM (test code = 8.7 MG/DL 8.4-10.2 N CA) [id number] 06:11:00 Test Item Value Reference Range Interpretation Comments MAGNESIUM (test code = MAG) 1.7 MG/DL 1.6-2.3 N CBC W/AUTO [id number] 05:57:00 Test Item Value Reference Range Interpretation Comments WHITE BLOOD CELL (test code = 12.1 K/MM3 3.8-9.8 H WBC) RED BLOOD CELL (test code = 3.41 M/MM3 3.58-4.97 L RBC) HEMOGLOBIN (test code = HGB) 9.8 G/DL 11.2-14.9 L HEMATOCRIT (test code = HCT) 30.9 % 33.2-43.5 L MEAN CELL VOLUME (test code = 91 fL 80.7-99.1 N MCV) MEAN CELL HGB (test code = MCH) 28.7 pg 27.0-34.1 N MEAN CELL HGB CONCETRATION 31.7 % 32.2-35.7 L (test code = MCHC) RED CELL DISTRIBUTION WIDTH 13.0 % 12.1-15.2 N (test code = RDW) PLATELET COUNT (test code = 233 K/MM3 129-368 PLT) MEAN PLATELET VOLUME (test code 10.5 fl 7.4-10.4 H = MPV) NEUTROPHIL % (test code = NT%) 76.9 % 43-75 H IMMATURE GRANULOCYTE % (test 0.2 % 0.0-2.0 N code = IG%) LYMPHOCYTE % (test code = LY%) 14.3 % 14-44 N MONOCYTE % (test code = MO%) 8.2 % 4-13 N EOSINOPHIL % (test code = EO%) 0.2 % 0-6 N BASOPHIL % (test code = BA%) 0.2 % 0-2 N NUCLEATED RBC % (test code = 0.0 % 0-1.0 N NRBC%) NEUTROPHIL # (test code = NT#) 9.30 K/mm3 2.0-7.6 H IMMATURE GRANULOCYTE # (test 0.03 x10 3/uL 0-0.03 N code = IG#) LYMPHOCYTE # (test code = LY#) 1.74 K/mm3 1.0-3.8 N MONOCYTE # (test code = MO#) 1.00 K/mm3 0.1-0.8 H EOSINOPHIL # (test code = EO#) 0.03 K/mm3 0.0-0.2 N BASOPHIL # (test code = BA#) 0.03 K/mm3 0.0-0.2 N NUCLEATED RBC # (test code = 0.00 K/mm3 0.0-0.1 N NRBC#) GLUCOSE BEDSIDE [id number] 16:50:00 Test Item Value Reference Range Interpretation Comments GLUCOSE BEDSIDE TESTING (test code 260 MG/DL 60-99 H = GLUBED) ARTERIAL BLOOD [id number] 16:31:00 Test Item Value Reference Range Interpretation Comments ARTERIAL BLOOD GAS PH 7.37 mmHg 7.35-7.45 N (test code = PHA) ARTERIAL BLOOD GAS 44.5 mmHg 35.0-45.0 N PCO2 (test code = PCO2A) ARTERIAL BLOOD GAS 74.4 mmol/L 80.0-100.0 L PO2 (test code = PO2A) BICARBONATE TOTAL 25.1 mmol/L 20.0-26.0 N HCO3 (test code = HCO3) BASE EXCESS (test -0.5 mmol/L -3.0-3.0 N code = BRICE) ABG O2 SATURATION 94.5 % 95.0-100.0 L PCO2 < 5 m mHg (test code = SATA) ABG DELIVERY (test N/C code = LETICIA) ABG TEMPERATURE (test 37.0 C See_Comment [Auto mated message] code = TEMPA) The system [employer] generated this result transmitted ref erence range: 37. The reference range was not used to int erpret this result as normal/abnormal . ABG SITE (test code = LINE SITEA) ALLENS TEST (test NA CHECK code = ALLENS) FIO2 (test code = 32 % COHBGFFIO2) BASIC METABOLIC [id number] 14:02:00 Test Item Value Reference Range Interpretation Comments SODIUM (test code = 138 MMOL/L 137-145 N NA) POTASSIUM (test code = 3.5 MMOL/L 3.5-5.1 N K) CHLORIDE (test code = 106 MMOL/L 98-107 N CL) CARBON DIOXIDE (test 27 MMOL/L 22-30 N code = CO2) GLUCOSE (test code = 222 MG/DL 74-106 H GLU) BLOOD UREA NITROGEN 9 MG/DL 7-17 N (test code = BUN) GLOMERULAR FILTRATION > 60 Report ing units: RATE (test code = GFR) ml/mi n/1.73 m2 (Modified MDRD Formula)Referen ce Range: > or = 6 0 ml/min/1.73 m2 CREATININE (test code 0.60 MG/DL 0.52-1.04 N = CREAT) CALCIUM (test code = 8.0 MG/DL 8.4-10.2 L CA) [id number] 14:02:00 Test Item Value Reference Range Interpretation Comments MAGNESIUM (test code = MAG) 1.8 MG/DL 1.6-2.3 N CBC W/AUTO [id number] 13:26:00 Test Item Value Reference Range Interpretation Comments WHITE BLOOD CELL (test code = 8.5 K/MM3 3.8-9.8 N WBC) RED BLOOD CELL (test code = 3.15 M/MM3 3.58-4.97 L RBC) HEMOGLOBIN (test code = HGB) 9.0 G/DL 11.2-14.9 L HEMATOCRIT (test code = HCT) 28.8 % 33.2-43.5 L MEAN CELL VOLUME (test code = 91 fL 80.7-99.1 N MCV) MEAN CELL HGB (test code = MCH) 28.6 pg 27.0-34.1 N MEAN CELL HGB CONCETRATION 31.3 % 32.2-35.7 L (test code = MCHC) RED CELL DISTRIBUTION WIDTH 13.1 % 12.1-15.2 N (test code = RDW) PLATELET COUNT (test code = 194 K/MM3 129-368 N PLT) MEAN PLATELET VOLUME (test code 10.7 fl 7.4-10.4 H = MPV) NEUTROPHIL % (test code = NT%) 79.3 % 43-75 H IMMATURE GRANULOCYTE % (test 0.4 % 0.0-2.0 N code = IG%) LYMPHOCYTE % (test code = LY%) 11.4 % 14-44 L MONOCYTE % (test code = MO%) 8.3 % 4-13 N EOSINOPHIL % (test code = EO%) 0.4 % 0-6 N BASOPHIL % (test code = BA%) 0.2 % 0-2 N NUCLEATED RBC % (test code = 0.2 % 0-1.0 N NRBC%) NEUTROPHIL # (test code = NT#) 6.73 K/mm3 2.0-7.6 N IMMATURE GRANULOCYTE # (test 0.03 x10 3/uL 0-0.03 N code = IG#) LYMPHOCYTE # (test code = LY#) 0.97 K/mm3 1.0-3.8 L MONOCYTE # (test code = MO#) 0.70 K/mm3 0.1-0.8 N EOSINOPHIL # (test code = EO#) 0.03 K/mm3 0.0-0.2 N BASOPHIL # (test code = BA#) 0.02 K/mm3 0.0-0.2 N NUCLEATED RBC # (test code = 0.02 K/mm3 0.0-0.1 N NRBC#) - XR CHEST [id number] 11:25:00 [facility] : 1945 Sex: F Patient Name: ALBA KAUR Unit No: [id number] EXAMS: CPT CODE: [id number] XR CHEST 1V 14762 B2 EXAM: - XR CHEST 1V DATE: 12/04/2021 10:55 AM HISTORY: post op surgery COMPARISON: Chest x-ray 12/03/2021 FINDINGS: No airspace consolidation or pleural effusions. Diffuse interstitial opacities in both lungs. No pneumothorax. The cardiovascular silhouette is within normal limits. Right subclavian central venous line ending in the distal SVC. No bony lesions. IMPRESSION: Diffuse interstitial opacities inboth lungs likely due to pulmonary edema. at 1125 Reported and signed by: Hansa Ramos MD CC: Skinny Cantu Technologist: SULTANA Boone, RT(R) Transcrpt Date/Tm/Trnsp: 12/04/2021 (1127) [email or web address].MOP Orig Print D/T: S: 12/04/2021 (1124) [facility] NAME: ALBA KAUR [id number] PHYS: [place] [address] : 1945 AGE: 76 S[facility]: F [id number] LOC: REHANA PHONE #: [phone] EXAM DATE: 12/04/2021 STATUS: DEP CLI FAX #: [phone] RADIOLOGY NO: PAGE 1 Signed ReportGLUCOSE BEDSIDE [id number] 07:33:00 Test Item Value Reference Range Interpretation Comments GLUCOSE BEDSIDE TESTING (test code 159 MG/DL 60-99 H = GLUBED) - CTA ABD PEL W [id number] 15:08:00 [facility] : 1945 Sex: F Patient Name: ALBA KAUR Unit No: [id number] EXAMS: CPT CODE: [id number] CTA ABD PEL W CONT [id number] EXAMINATION: - CTA ABD PEL W CONT. LOCATION: B2. HISTORY: INFRARENAL ABDOMINAL AORTIC ANEURYSM. COMPARISON: None. TECHNIQUE: CTA abdomen and pelvis was performed with the use of IV contrast (150 mL Isovue 370). Sagittal and coronal reconstructed images were available for review. 3-D reconstructions were also obtained. This exam was performed according to our departmental dose-optimization program, which includes automated exposure control, adjustment of the mA and/or kV according to patient size, and/or use of iterative reconstruction technique. FINDINGS: VASCULAR FINDINGS: Scattered mixed calcific plaques are seen in the abdominal aorta without evidence of aneurysm or dissection. Focal nonflow limiting dissection is seen within the infrarenal aorta (axial image 312 of series 2). There is no evidence of aneurysm. Focal infrarenal aortic stenosis is present proximal to the aortic bifurcation with luminal diameter of 0.9 cm (axial image 362 of series 2). The origins of the celiac artery, SMA, and bilateral renal arteries are patent. There is focal stenosis at the origin of the CRYSTAL. Scattered calcific plaques are seen in bilateral common iliac, internal iliac, and external iliac arteries without significant stenosis. Calcific plaques are seen in bilateral common femoral and proximal superficial femoral arteries. There are 2 areas of high- grade stenosis within the right common femoral artery. OTHER FINDINGS: Examination of the lower chest demonstrates no significant abnormality. 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 1.7 cm right superior renalcyst is present. The liver, gallbladder, pancreas, spleen, and bilateral adrenal glands appear within normal limits. There is no evidence of bowel obstruction. Examination of the pelvis demonstrates nosignificant abnormality. There are remote fractures of bilateral inferior pubic rami. Severe cysticdegenerative changes are seen in the left femoroacetabular joint. No acute osseous abnormality is identified. No aggressive lytic or blastic lesions are seen. [facility] NAME: ALBA KAUR [id number] PHYS: [place] [address] : 1945 AGE: 76 SEX: F LOC: ZREYNOLD PHONE #: [phone] EXAM DATE: 12/03/2021 STATUS: REG CLI FAX #: [phone] RAD #: D/C DT PAGE 1 Signed Report (CONTINUED) Patient Name: ALBA KAUR Unit No: [id number] EXAMS: CPT CODE: [id number] CTA ABD PEL W CONT 21303 (Continued) IMPRESSION: Scattered atherosclerotic disease with focal nonflow limiting dissection within the infrarenal aorta. There is no evidenceof aneurysm. Distal infrarenal aortic stenosis proximal to the aortic bifurcation with luminal diameter of 0.9 cm. Two focal areas of high grade stenosis within the right common femoral artery. at 1508 Reported and signed by: Charis Aiken MD CC: Skinny Cantu Technologist: Brandon Bragg, RT(R); Amand CTDI: DLP: Trnscrpt: 12/03/2021 (1508) t.SDR.PR7 [facility] NAME: ALBA KAUR [id number] PHYS: [place] [address] : 1945 AGE: 76 SEX: F LOC: ColtonCTS PHONE #: [phone] EXAM DATE: 12/03/2021 STATUS: REG CLI FAX #: [phone] RAD #: D/C DT PAGE 2 Signed Report Patient Name: ALBA KAUR Unit No: [id number] EXAMS: CPT CODE: [id number] CTA ABD PEL W CONT 40240(Continued) Orig Print D/T: S: 12/03/2021 (1512) [facility] NAME: ALBA KAUR [address]: [place] [address] : 1945 AGE: 76 SEX: F LOC: ColtonCTS PHONE #: [phone] EXAM DATE: 12/03/2021 STATUS: REG CLI FAX #: [phone] RAD #: D/C DT PAGE 3 Signed Report- XR CHEST 2 [id number] 15:02:00 [facility] : 1945 Sex: F Patient Name: ALBA KAUR Unit No: [id number] EXAMS: CPT CODE: [id number] XR CHEST 2 V 71738 EXAM: - XR CHEST 2 V INDICATION: PREOP T18 TECHNIQUE: Frontal and lateral views of the chest. FINDINGS: Lungs appear clear. Cardiomediastinal silhouette appears unremarkable. No pleural effusion seen. Osseous structures appear unremarkable. IMPRESSION: No acute cardiopulmonary process seen. at 1502 Reported and signed by: Jarod Galdamez MD CC: Hardik Cantu Technologist: SULTANA Boone, RT(R) Transcrpt Date/Tm/Trnsp: 12/03/2021 (1502) [email or web address].[email or web address].AH26 Orig Print D/T: S: 12/03/2021 (150) [facility] NAME: ALBA KAUR [id number] PHYS: [place] [address] : 1945 AGE: 76 SEX: F LOC: Z.5MU PHONE #: [phone] EXAM DATE: 12/03/2021 STATUS: PRE IN FAX #: [phone] RADIOLOGY NO: PAGE 1 Signed ReportHIV 12 AB [id number] 13:57:00 Test Item Value Reference Range Interpretation Comments HIV 1 2 COMBO AG/AB SCREEN AB/AG NON REACTIVE NONREACTIVE (test code = [id number]) BASIC METABOLIC [id number] 13:19:00 Test Item Value Reference Range Interpretation Comments SODIUM (test code = 142 MMOL/L 137-145 N NA) POTASSIUM (test code = 4.0 MMOL/L 3.5-5.1 N K) CHLORIDE (test code = 104 MMOL/L 98-107 N CL) CARBON DIOXIDE (test 28 MMOL/L 22-30 N code = CO2) GLUCOSE (test code = 181 MG/DL 74-106 H GLU) BLOOD UREA NITROGEN 13 MG/DL 7-17 N (test code = BUN) GLOMERULAR FILTRATION > 60 Report ing units: RATE (test code = GFR) ml/mi n/1.73 m2 (Modified MDRD Formula)Referen ce Range: > or = 6 0 ml/min/1.73 m2 CREATININE (test code 0.80 MG/DL 0.52-1.04 N = CREAT) CALCIUM (test code = 9.3 MG/DL 8.4-10.2 N CA) PROTHROMBIN [id number] 12:58:00 Test Item Value Reference Range Interpretation Comments PROTHROMBIN TIME 10.7 SECONDS 9.4-12.7 N PATIENT (test code = PTP) INTERNATIONAL NORMAL 1.0 0.86-1.14 N The INR is to be RATIO (test code = used only for INR) monitoring oral anticoagulantth erap y. INDICATION I NR VALUE ---- ---- ---- -------1. Prophylaxis, de ep venous thrombos is, including high risk surgery. 2.0 - 3.0 2. Prophylaxis, deep venous thrombosis, hip surgery, treatm ent for deep venous thrombosis or pulmonary prevention of systemic emboli sm in patients wit h valvular heart disease, atrial fibrillation, tissue heart va lve, or acute myocar dial infarction. 2.0 - 3.0 3. Metal Smelter al prosthesis hear t valves, recurre nt systemic emboli sm. 3.0 - 4.5 PTT [id number] 12:58:00 Test Item Value Reference Range Interpretation Comments PTT ACTIVATED (test code = APTT) 31.2 SECONDS 26.2-35.4 N CBC W/AUTO [id number] 12:46:00 Test Item Value Reference Range Interpretation Comments WHITE BLOOD CELL (test code = 8.7 K/MM3 3.8-9.8 N WBC) RED BLOOD CELL (test code = 3.63 M/MM3 3.58-4.97 N RBC) HEMOGLOBIN (test code = HGB) 10.5 G/DL 11.2-14.9 L HEMATOCRIT (test code = HCT) 33.6 % 33.2-43.5 N MEAN CELL VOLUME (test code = 93 fL 80.7-99.1 N MCV) MEAN CELL HGB (test code = MCH) 28.9 pg 27.0-34.1 N MEAN CELL HGB CONCETRATION 31.3 % 32.2-35.7 L (test code = MCHC) RED CELL DISTRIBUTION WIDTH 12.9 % 12.1-15.2 N (test code = RDW) PLATELET COUNT (test code = 240 K/MM3 129-368 N PLT) MEAN PLATELET VOLUME (test code 10.7 fl 7.4-10.4 H = MPV) NEUTROPHIL % (test code = NT%) 66.4 % 43-75 N IMMATURE GRANULOCYTE % (test 0.2 % 0.0-2.0 N code = IG%) LYMPHOCYTE % (test code = LY%) 22.5 % 14-44 N MONOCYTE % (test code = MO%) 9.6 % 4-13 N EOSINOPHIL % (test code = EO%) 1.0 % 0-6 N BASOPHIL % (test code = BA%) 0.3 % 0-2 N NUCLEATED RBC % (test code = 0.0 % 0-1.0 N NRBC%) NEUTROPHIL # (test code = NT#) 5.77 K/mm3 2.0-7.6 N IMMATURE GRANULOCYTE # (test 0.02 x10 3/uL 0-0.03 N code = IG#) LYMPHOCYTE # (test code = LY#) 1.96 K/mm3 1.0-3.8 N MONOCYTE # (test code = MO#) 0.84 K/mm3 0.1-0.8 H EOSINOPHIL # (test code = EO#) 0.09 K/mm3 0.0-0.2 N BASOPHIL # (test code = BA#) 0.03 K/mm3 0.0-0.2 N NUCLEATED RBC # (test code = 0.00 K/mm3 0.0-0.1 N NRBC#) [id number] 15:54:00 Test Item Value Reference Range Interpretation Comments SURGICAL (test code = SR) RUN DATE: 10/30/21 [facility] - LAB PAGE 1 RUN TIME: 1554 Specimen Inquiry RUN USER: INTERFACE PATIENT: ALBA KAUR LOC: [facility] U #: [id number] AGE/SX: 76/F ROOM: [facility] [id number] DR: Ady Ventura MD : [id number] BED: A DIS: 10/29/21 STATUS: DIS IN TLOC: SPEC #: [id number]:[id number] RECD: 10/29/21 STATUS: CLARISSA EVENS #: [id number] RACHEL: 10/26/[address]: Ady Ventura MD ENTERED: 10/29/21 SP TYPE: SURGICAL OTHR DR: Self Referred Rigo Skinner MD, Larry MD Nevers, Steven MD R2 Skinny Cantu MDORDERED: [id number], [id number], ANATOMIC SPEC, SPECIMEN TRACK COPIES TO: [place] [address] [place] [address] Sesra Steele MD [address] [place] [address] [place] [address] [facility] [address] [place] [address] Christos Harry MD R2 [address] [id number] [place] [address] [facility] [address] [place] [address] PROCEDURES: 52857 (10/29/21-1143) 44750 (10/30/21-1552) SPECIMEN TRACK (10/29/21) TISSUES: A. PLAQUE ATHEROMATOUS/FIBROUS/FIBRO FATTY - RIGHT CAROTID PLAQUE CONTINUED ON NEXT PAGE RUN DATE: 10/30/21 [facility] PAGE 2 RUN TIME: 1553 Specimen Inquiry RUN USER: INTERFACE SPEC #: [id number]:[id number] PATIENT: ALBA KAUR #[id number] (Continued) FINAL DIAGNOSIS CAROTID ARTERY, RIGHT, ENDARTERECTOMY: - Thickened intima with degenerative changes and calcifications. GROSS DESCRIPTION Right carotid plaque. It consists of segment of yellow desai calcified plaque measures 3.8x 1 x 1 cm. Section is submitted for decalcification as A1. Technical component performed at [facility],[address], [place] [address] MICROSCOPIC DESCRIPTION Microscopic examination is performed and the findings are incorporated into the finaldiagnosis. Please see diagnosis for the findings. Signed SIGNATURE ON FILE Stuart Wilson 10/30/21 1554 END OF REPORT GLUCOSE BEDSIDE [id number] 11:39:00 Test Item Value Reference Range Interpretation Comments GLUCOSE BEDSIDE TESTING (test code 152 MG/DL 60-99 H = GLUBED) GLUCOSE BEDSIDE [id number] 11:31:00 Test Item Value Reference Range Interpretation Comments GLUCOSE BEDSIDE TESTING (test code 151 MG/DL 60-99 H = GLUBED) GLUCOSE BEDSIDE [id number] 08:03:00 Test Item Value Reference Range Interpretation Comments GLUCOSE BEDSIDE TESTING (test code 217 MG/DL 60-99 H = GLUBED) GLUCOSE BEDSIDE [id number] 06:29:00 Test Item Value Reference Range Interpretation Comments GLUCOSE BEDSIDE TESTING (test code 173 MG/DL 60-99 H = GLUBED) CBC W/AUTO [id number] 05:12:00 Test Item Value Reference Range Interpretation Comments WHITE BLOOD CELL (test code = 12.6 K/MM3 3.8-9.8 H WBC) RED BLOOD CELL (test code = 3.54 M/MM3 3.58-4.97 L RBC) HEMOGLOBIN (test code = HGB) 10.5 G/DL 11.2-14.9 L HEMATOCRIT (test code = HCT) 32.6 % 33.2-43.5 L MEAN CELL VOLUME (test code = 92 fL 80.7-99.1 N MCV) MEAN CELL HGB (test code = MCH) 29.7 pg 27.0-34.1 N MEAN CELL HGB CONCETRATION 32.2 % 32.2-35.7 N (test code = MCHC) RED CELL DISTRIBUTION WIDTH 13.1 % 12.1-15.2 N (test code = RDW) PLATELET COUNT (test code = 189 K/MM3 129-368 N PLT) MEAN PLATELET VOLUME (test code 10.5 fl 7.4-10.4 H = MPV) NEUTROPHIL % (test code = NT%) 77.0 % 43-75 H IMMATURE GRANULOCYTE % (test 0.6 % 0.0-2.0 N code = IG%) LYMPHOCYTE % (test code = LY%) 10.9 % 14-44 L MONOCYTE % (test code = MO%) 11.2 % 4-13 N EOSINOPHIL % (test code = EO%) 0.1 % 0-6 N BASOPHIL % (test code = BA%) 0.2 % 0-2 N NUCLEATED RBC % (test code = 0.0 % 0-1.0 N NRBC%) NEUTROPHIL # (test code = NT#) 9.71 K/mm3 2.0-7.6 H IMMATURE GRANULOCYTE # (test 0.08 x10 3/uL 0-0.03 H code = IG#) LYMPHOCYTE # (test code = LY#) 1.37 K/mm3 1.0-3.8 N MONOCYTE # (test code = MO#) 1.41 K/mm3 0.1-0.8 H EOSINOPHIL # (test code = EO#) 0.01 K/mm3 0.0-0.2 N BASOPHIL # (test code = BA#) 0.03 K/mm3 0.0-0.2 N NUCLEATED RBC # (test code = 0.00 K/mm3 0.0-0.1 N NRBC#) GLUCOSE BEDSIDE [id number] 19:57:00 Test Item Value Reference Range Interpretation Comments GLUCOSE BEDSIDE TESTING (test code 139 MG/DL 60-99 H = GLUBED) GLUCOSE BEDSIDE [id number] 15:50:00 Test Item Value Reference Range Interpretation Comments GLUCOSE BEDSIDE TESTING (test code 182 MG/DL 60-99 H = GLUBED) GLUCOSE BEDSIDE [id number] 12:10:00 Test Item Value Reference Range Interpretation Comments GLUCOSE BEDSIDE TESTING (test code 179 MG/DL 60-99 H = GLUBED) BASIC METABOLIC [id number] 09:13:00 Test Item Value Reference Range Interpretation Comments SODIUM (test code = 139 MMOL/L 137-145 N NA) POTASSIUM (test code = 3.7 MMOL/L 3.5-5.1 N K) CHLORIDE (test code = 103 MMOL/L 98-107 N CL) CARBON DIOXIDE (test 31 MMOL/L 22-30 H code = CO2) ANION GAP (test code = 9 MMOL/L 14-24 L GAP) GLUCOSE (test code = 186 MG/DL 74-106 H GLU) BLOOD UREA NITROGEN 13 MG/DL 7-17 N (test code = BUN) GLOMERULAR FILTRATION > 60 Report ing units: RATE (test code = GFR) ml/mi n/1.73 m2 (Modified MDRD Formula)Referen ce Range: > or = 6 0 ml/min/1.73 m2 CREATININE (test code 0.60 MG/DL 0.52-1.04 N = CREAT) CALCIUM (test code = 8.5 MG/DL 8.4-10.2 N CA) CBC W/AUTO [id number] 08:45:00 Test Item Value Reference Range Interpretation Comments WHITE BLOOD CELL (test code = 14.1 K/MM3 3.8-9.8 H WBC) RED BLOOD CELL (test code = 3.40 M/MM3 3.58-4.97 L RBC) HEMOGLOBIN (test code = HGB) 10.0 G/DL 11.2-14.9 L HEMATOCRIT (test code = HCT) 31.3 % 33.2-43.5 L MEAN CELL VOLUME (test code = 92 fL 80.7-99.1 N MCV) MEAN CELL HGB (test code = MCH) 29.4 pg 27.0-34.1 N MEAN CELL HGB CONCETRATION 31.9 % 32.2-35.7 L (test code = MCHC) RED CELL DISTRIBUTION WIDTH 13.5 % 12.1-15.2 N (test code = RDW) PLATELET COUNT (test code = 203 K/MM3 129-368 N PLT) MEAN PLATELET VOLUME (test code 10.3 fl 7.4-10.4 N = MPV) NEUTROPHIL % (test code = NT%) 77.9 % 43-75 H IMMATURE GRANULOCYTE % (test 0.4 % 0.0-2.0 N code = IG%) LYMPHOCYTE % (test code = LY%) 13.1 % 14-44 L MONOCYTE % (test code = MO%) 8.3 % 4-13 N EOSINOPHIL % (test code = EO%) 0.1 % 0-6 N BASOPHIL % (test code = BA%) 0.2 % 0-2 N NUCLEATED RBC % (test code = 0.0 % 0-1.0 N NRBC%) NEUTROPHIL # (test code = NT#) 10.97 K/mm3 2.0-7.6 H IMMATURE GRANULOCYTE # (test 0.06 x10 3/uL 0-0.03 H code = IG#) LYMPHOCYTE # (test code = LY#) 1.84 K/mm3 1.0-3.8 N MONOCYTE # (test code = MO#) 1.17 K/mm3 0.1-0.8 H EOSINOPHIL # (test code = EO#) 0.01 K/mm3 0.0-0.2 N BASOPHIL # (test code = BA#) 0.03 K/mm3 0.0-0.2 N NUCLEATED RBC # (test code = 0.00 K/mm3 0.0-0.1 N NRBC#) GLUCOSE BEDSIDE [id number] 07:34:00 Test Item Value Reference Range Interpretation Comments GLUCOSE BEDSIDE TESTING (test code 151 MG/DL 60-99 H = GLUBED) GLUCOSE BEDSIDE [id number] 19:45:00 Test Item Value Reference Range Interpretation Comments GLUCOSE BEDSIDE TESTING (test code 167 MG/DL 60-99 H = GLUBED) GLUCOSE BEDSIDE [id number] 15:40:00 Test Item Value Reference Range Interpretation Comments GLUCOSE BEDSIDE TESTING (test code 141 MG/DL 60-99 H = GLUBED) GLUCOSE BEDSIDE [id number] 11:25:00 Test Item Value Reference Range Interpretation Comments GLUCOSE BEDSIDE TESTING (test code 147 MG/DL 60-99 H = GLUBED) GLUCOSE BEDSIDE [id number] 07:53:00 Test Item Value Reference Range Interpretation Comments GLUCOSE BEDSIDE TESTING (test code 214 MG/DL 60-99 H = GLUBED) - XR CHEST [id number] 06:51:00 [facility] 1945 Sex: F Patient Name: ALBA KAUR Unit No: [id number] EXAMS: CPT CODE: [id number] XR CHEST 1V 68630 Location code: H49 Chest 1 view Indication: s/p line placement. Comparison: CXR 10/26/2021 Findings: Surgicalclips in the right neck. Drain is in place. Right subclavian central venous catheter tip projects over the mid superior vena cava. The heart and mediastinum are unremarkable. Low lung volumes with mildbronchovascular crowding... Costophrenic angles are clear. Lungs are clear. Bone is unremarkable forage. Impression: 1. Low lung volumes with mild bronchovascular crowding. Otherwise, no radiographicevidence of acute cardiopulmonary disease. at 0651 Reported and signed by: Gabriela Tolentino MD CC: Skinny Cantu Technologist: Bola Moyer (RT) Transcrpt Date/Tm/Trnsp: 10/27/2021 (0651) [email or web address] Orig Print D/T: S: 10/27/2021 (0654) [facility] NAME: ALBA KAUR [id number] [address] PHYS: [place] [address] : 1945 AGE: 76 SEX: F LOC: Z.SI04 A PHONE #: [phone] EXAM DATE: 10/27/2021 STATUS: ADM IN FAX #: [phone] RADIOLOGY NO: PAGE 1 Signed ReportBASIC METABOLIC [id number] 05:02:00 Test Item Value Reference Range Interpretation Comments SODIUM (test code = 136 MMOL/L 137-145 L NA) POTASSIUM (test code = 4.3 MMOL/L 3.5-5.1 N K) CHLORIDE (test code = 103 MMOL/L 98-107 N CL) CARBON DIOXIDE (test 27 MMOL/L 22-30 N code = CO2) ANION GAP (test code = 10 MMOL/L 14-24 L GAP) GLUCOSE (test code = 214 MG/DL 74-106 H GLU) BLOOD UREA NITROGEN 11 MG/DL 7-17 N (test code = BUN) GLOMERULAR FILTRATION > 60 Report ing units: RATE (test code = GFR) ml/mi n/1.73 m2 (Modified MDRD Formula)Referen ce Range: > or = 6 0 ml/min/1.73 m2 CREATININE (test code 0.60 MG/DL 0.52-1.04 N = CREAT) CALCIUM (test code = 8.3 MG/DL 8.4-10.2 L CA) [id number] 05:02:00 Test Item Value Reference Range Interpretation Comments MAGNESIUM (test code = MAG) 1.6 MG/DL 1.6-2.3 N CBC W/AUTO [id number] 04:40:00 Test Item Value Reference Range Interpretation Comments WHITE BLOOD CELL (test code = 11.5 K/MM3 3.8-9.8 H WBC) RED BLOOD CELL (test code = 3.60 M/MM3 3.58-4.97 N RBC) HEMOGLOBIN (test code = HGB) 10.6 G/DL 11.2-14.9 L HEMATOCRIT (test code = HCT) 32.5 % 33.2-43.5 L MEAN CELL VOLUME (test code = 90 fL 80.7-99.1 N MCV) MEAN CELL HGB (test code = MCH) 29.4 pg 27.0-34.1 N MEAN CELL HGB CONCETRATION 32.6 % 32.2-35.7 N (test code = MCHC) RED CELL DISTRIBUTION WIDTH 13.2 % 12.1-15.2 N (test code = RDW) PLATELET COUNT (test code = 192 K/MM3 129-368 N PLT) MEAN PLATELET VOLUME (test code 9.9 fl 7.4-10.4 N = MPV) NEUTROPHIL % (test code = NT%) 91.8 % 43-75 H IMMATURE GRANULOCYTE % (test 0.3 % 0.0-2.0 N code = IG%) LYMPHOCYTE % (test code = LY%) 6.3 % 14-44 L MONOCYTE % (test code = MO%) 1.6 % 4-13 L EOSINOPHIL % (test code = EO%) 0.0 % 0-6 N BASOPHIL % (test code = BA%) 0 % 0-2 N NUCLEATED RBC % (test code = 0.0 % 0-1.0 N NRBC%) NEUTROPHIL # (test code = NT#) 10.57 K/mm3 2.0-7.6 H IMMATURE GRANULOCYTE # (test 0.03 x10 3/uL 0-0.03 N code = IG#) LYMPHOCYTE # (test code = LY#) 0.72 K/mm3 1.0-3.8 L MONOCYTE # (test code = MO#) 0.18 K/mm3 0.1-0.8 N EOSINOPHIL # (test code = EO#) 0.00 K/mm3 0.0-0.2 N BASOPHIL # (test code = BA#) 0 K/mm3 0.0-0.2 N NUCLEATED RBC # (test code = 0.00 K/mm3 0.0-0.1 N NRBC#) ARTERIAL BLOOD [id number] 00:24:00 Test Item Value Reference Range Interpretation Comments ARTERIAL BLOOD GAS PH 7.29 mmHg 7.35-7.45 LL (test code = PHA) ARTERIAL BLOOD GAS 46.2 mmHg 35.0-45.0 H PCO2 (test code = PCO2A) ARTERIAL BLOOD GAS 64.6 mmol/L 80.0-100.0 L PO2 (test code = PO2A) BICARBONATE TOTAL 21.5 mmol/L 20.0-26.0 N HCO3 (test code = HCO3) BASE EXCESS (test -5.3 mmol/L -3.0-3.0 L code = BRICE) ABG O2 SATURATION 90.1 % 95.0-100.0 L All critic al values (test code = SATA) report to and readback by Tracey ramRN by FREDERICK at 10/26/2021 8:59:2 3 PM ABG DELIVERY (test N/C code = LETICIA) ABG TEMPERATURE (test 37.0 C See_Comment [Auto mated message] code = TEMPA) The system [employer] generated this result transmitted ref erence range: 37. The reference range was not used to int erpret this result as normal/abnormal . ABG SITE (test code = AL SITEA) ALLENS TEST (test NA CHECK code = ALLENS) FIO2 (test code = 36 % COHBGFFIO2) ARTERIAL BLOOD [id number] 22:13:00 Test Item Value Reference Range Interpretation Comments ARTERIAL BLOOD GAS PH 7.33 mmHg 7.35-7.45 L (test code = PHA) ARTERIAL BLOOD GAS 49.7 mmHg 35.0-45.0 H PCO2 (test code = PCO2A) ARTERIAL BLOOD GAS 63.5 mmol/L 80.0-100.0 L PO2 (test code = PO2A) BICARBONATE TOTAL 25.4 mmol/L 20.0-26.0 N HCO3 (test code = HCO3) BASE EXCESS (test -1.2 mmol/L -3.0-3.0 N code = BRICE) ABG O2 SATURATION 90.5 % 95.0-100.0 L (test code = SATA) ABG DELIVERY (test VENTIMSK code = LETICIA) ABG TEMPERATURE (test 37.0 C See_Comment [Auto mated message] code = TEMPA) The system [employer] generated this result transmitted ref erence range: 37. The reference range was not used to int erpret this result as normal/abnormal . ABG SITE (test code = AL SITEA) ALLENS TEST (test NA CHECK code = ALLENS) FIO2 (test code = 50 % COHBGFFIO2) GLUCOSE BEDSIDE [id number] 21:02:00 Test Item Value Reference Range Interpretation Comments GLUCOSE BEDSIDE TESTING (test code 223 MG/DL 60-99 H = GLUBED) ARTERIAL BLOOD [id number] 20:34:00 Test Item Value Reference Range Interpretation Comments ARTERIAL BLOOD GAS PH 7.26 mmHg 7.35-7.45 LL (test code = PHA) ARTERIAL BLOOD GAS 48.4 mmHg 35.0-45.0 H PCO2 (test code = PCO2A) ARTERIAL BLOOD GAS 79.1 mmol/L 80.0-100.0 L PO2 (test code = PO2A) BICARBONATE TOTAL 21.4 mmol/L 20.0-26.0 N HCO3 (test code = HCO3) BASE EXCESS (test -5.9 mmol/L -3.0-3.0 L code = BRICE) ABG O2 SATURATION 93.9 % 95.0-100.0 L All critic al values (test code = SATA) report to and readback by TRACEY RAMRN by SYLVIAMOISES at 10/26/2021 8:06:4 1 PM ABG L/M (test code = 6 L/MIN L/M) ABG DELIVERY (test SMASK code = LETICIA) ABG TEMPERATURE (test 37.0 C See_Comment [Auto mated message] code = TEMPA) The system [employer] generated this result transmitted ref erence range: 37. The reference range was not used to int erpret this result as normal/abnormal . ABG SITE (test code = AL SITEA) ALLENS TEST (test NA CHECK code = ALLENS) FIO2 (test code = 42 % COHBGFFIO2) BASIC METABOLIC [id number] 20:10:00 Test Item Value Reference Range Interpretation Comments SODIUM (test code = 141 MMOL/L 137-145 N NA) POTASSIUM (test code = 4.0 MMOL/L 3.5-5.1 N K) CHLORIDE (test code = 107 MMOL/L 98-107 N CL) CARBON DIOXIDE (test 26 MMOL/L 22-30 N code = CO2) ANION GAP (test code = 12 MMOL/L 14-24 L GAP) GLUCOSE (test code = 199 MG/DL 74-106 H GLU) BLOOD UREA NITROGEN 12 MG/DL 7-17 N (test code = BUN) GLOMERULAR FILTRATION > 60 Report ing units: RATE (test code = GFR) ml/mi n/1.73 m2 (Modified MDRD Formula)Referen ce Range: > or = 6 0 ml/min/1.73 m2 CREATININE (test code 0.60 MG/DL 0.52-1.04 N = CREAT) CALCIUM (test code = 8.6 MG/DL 8.4-10.2 N CA) [id number] 20:10:00 Test Item Value Reference Range Interpretation Comments MAGNESIUM (test code = MAG) 1.6 MG/DL 1.6-2.3 N CBC W/AUTO [id number] 19:56:00 Test Item Value Reference Range Interpretation Comments WHITE BLOOD CELL (test code = 14.6 K/MM3 3.8-9.8 H WBC) RED BLOOD CELL (test code = 3.71 M/MM3 3.58-4.97 N RBC) HEMOGLOBIN (test code = HGB) 11.1 G/DL 11.2-14.9 L HEMATOCRIT (test code = HCT) 34.2 % 33.2-43.5 N MEAN CELL VOLUME (test code = 92 fL 80.7-99.1 N MCV) MEAN CELL HGB (test code = MCH) 29.9 pg 27.0-34.1 N MEAN CELL HGB CONCETRATION 32.5 % 32.2-35.7 N (test code = MCHC) RED CELL DISTRIBUTION WIDTH 13.2 % 12.1-15.2 N (test code = RDW) PLATELET COUNT (test code = 191 K/MM3 129-368 N PLT) MEAN PLATELET VOLUME (test code 10.5 fl 7.4-10.4 H = MPV) NEUTROPHIL % (test code = NT%) 73.1 % 43-75 N IMMATURE GRANULOCYTE % (test 0.5 % 0.0-2.0 N code = IG%) LYMPHOCYTE % (test code = LY%) 19.3 % 14-44 N MONOCYTE % (test code = MO%) 6.3 % 4-13 N EOSINOPHIL % (test code = EO%) 0.5 % 0-6 N BASOPHIL % (test code = BA%) 0.3 % 0-2 N NUCLEATED RBC % (test code = 0.0 % 0-1.0 N NRBC%) NEUTROPHIL # (test code = NT#) 10.64 K/mm3 2.0-7.6 H IMMATURE GRANULOCYTE # (test 0.08 x10 3/uL 0-0.03 H code = IG#) LYMPHOCYTE # (test code = LY#) 2.82 K/mm3 1.0-3.8 N MONOCYTE # (test code = MO#) 0.92 K/mm3 0.1-0.8 H EOSINOPHIL # (test code = EO#) 0.08 K/mm3 0.0-0.2 N BASOPHIL # (test code = BA#) 0.04 K/mm3 0.0-0.2 N NUCLEATED RBC # (test code = 0.00 K/mm3 0.0-0.1 N [facility]#) - XR CHEST [id number] 19:51:00 [facility] 1945 Sex: F Patient Name: ALBA KAUR Unit No: [id number] EXAMS: CPT CODE: [id number] XR CHEST 1V 44099 Location code: H5 Chest 1 view Indication: s/p line placement. Comparison: None Findings: Surgical clips in the right neck. Drain is in place. Right subclavian central venous catheter tip projects over the mid superior vena cava. The heart and mediastinum are not remarkable. Costophrenic angles are clear. L ungs are clear. Bone is unremarkable for age. Impression: 1. No radiographic evidence of acute cardiopulmonary disease. 2. Right subclavian central venous catheter tip projects over the mid vena cava. 3. Right neck surgery with drain in place. Electronically Signed by Delfino Zhao on10/26/2021 at 1950 Reported and signed by: Jack Zhoa M.D. CC: Skinny Cantu Technologist: Sarika BARBOUR R Transcrpt Date/Tm/Trnsp: 10/26/2021 (1950) [id number] Orig Print D/T: S: 10/26/2021 (1953) [facility] NAME: ALBA KAUR [id number] [address] PHYS: [place] [address] : 1945 AGE: 76 SEX: F LOC: Z.SI04 A PHONE #: [phone] EXAM DATE: 10/26/2021 STATUS: ADM IN FAX #: [phone] RADIOLOGY NO: PAGE 1 Signed ReportHIV 12 AB [id number] 12:10:00 Test Item Value Reference Range Interpretation Comments HIV 1 2 COMBO AG/AB SCREEN AB/AG NON REACTIVE NONREACTIVE (test code = [id number]) BASIC METABOLIC [id number] 11:29:00 Test Item Value Reference Range Interpretation Comments SODIUM (test code = 139 MMOL/L 137-145 N NA) POTASSIUM (test code = 4.1 MMOL/L 3.5-5.1 N K) CHLORIDE (test code = 106 MMOL/L 98-107 N CL) CARBON DIOXIDE (test 27 MMOL/L 22-30 N code = CO2) GLUCOSE (test code = 137 MG/DL 74-106 H GLU) BLOOD UREA NITROGEN 14 MG/DL 7-17 N (test code = BUN) GLOMERULAR FILTRATION > 60 Report ing units: RATE (test code = GFR) ml/mi n/1.73 m2 (Modified MDRD Formula)Referen ce Range: > or = 6 0 ml/min/1.73 m2 CREATININE (test code 0.70 MG/DL 0.52-1.04 N = CREAT) CALCIUM (test code = 9.3 MG/DL 8.4-10.2 N CA) PROTHROMBIN [id number] 11:21:00 Test Item Value Reference Range Interpretation Comments PROTHROMBIN TIME 11.0 SECONDS 9.4-12.7 N PATIENT (test code = PTP) INTERNATIONAL NORMAL 1.0 0.86-1.14 N The INR is to be RATIO (test code = used only for INR) monitoring oral anticoagulantth erap y. INDICATION I NR VALUE ---- ---- ---- -------1. Prophylaxis, de ep venous thrombos is, including high risk surgery. 2.0 - 3.0 2. Prophylaxis, deep venous thrombosis, hip surgery, treatm ent for deep venous thrombosis or pulmonary prevention of systemic emboli sm in patients wit h valvular heart disease, atrial fibrillation, tissue heart va lve, or acute myocar dial infarction. 2. 0 - 3.0 3. Metal Smelter al prosthesis hear t valves, recurre nt systemic emboli sm. 3.0 - 4.5 PTT [id number] 11:21:00 Test Item Value Reference Range Interpretation Comments PTT ACTIVATED (test code = APTT) 31.7 SECONDS 26.2-35.4 N CBC W/AUTO [id number] 11:11:00 Test Item Value Reference Range Interpretation Comments WHITE BLOOD CELL (test code = 8.3 K/MM3 3.8-9.8 N WBC) RED BLOOD CELL (test code = 4.09 M/MM3 3.58-4.97 N RBC) HEMOGLOBIN (test code = HGB) 12.1 G/DL 11.2-14.9 N HEMATOCRIT (test code = HCT) 37.1 % 33.2-43.5 N MEAN CELL VOLUME (test code = 91 fL 80.7-99.1 N MCV) MEAN CELL HGB (test code = MCH) 29.6 pg 27.0-34.1 N MEAN CELL HGB CONCETRATION 32.6 % 32.2-35.7 N (test code = MCHC) RED CELL DISTRIBUTION WIDTH 13.2 % 12.1-15.2 N (test code = RDW) PLATELET COUNT (test code = 231 K/MM3 129-368 N PLT) MEAN PLATELET VOLUME (test code 10.3 fl 7.4-10.4 N = MPV) NEUTROPHIL % (test code = NT%) 69.3 % 43-75 N IMMATURE GRANULOCYTE % (test 0.4 % 0.0-2.0 N code = IG%) LYMPHOCYTE % (test code = LY%) 19.9 % 14-44 N MONOCYTE % (test code = MO%) 9.2 % 4-13 N EOSINOPHIL % (test code = EO%) 0.7 % 0-6 N BASOPHIL % (test code = BA%) 0.5 % 0-2 N NUCLEATED RBC % (test code = 0.0 % 0-1.0 N NRBC%) NEUTROPHIL # (test code = NT#) 5.77 K/mm3 2.0-7.6 N IMMATURE GRANULOCYTE # (test 0.03 x10 3/uL 0-0.03 N code = IG#) LYMPHOCYTE # (test code = LY#) 1.66 K/mm3 1.0-3.8 N MONOCYTE # (test code = MO#) 0.77 K/mm3 0.1-0.8 N EOSINOPHIL # (test code = EO#) 0.06 K/mm3 0.0-0.2 N BASOPHIL # (test code = BA#) 0.04 K/mm3 0.0-0.2 N NUCLEATED RBC # (test code = 0.00 K/mm3 0.0-0.1 N NRBC#) BASIC METABOLIC [id number] 07:12:00 Test Item Value Reference Range Interpretation Comments SODIUM (test code = 139 MMOL/L 137-145 N NA) POTASSIUM (test code = 4.5 MMOL/L 3.5-5.1 N K) CHLORIDE (test code = 107 MMOL/L 98-107 N CL) CARBON DIOXIDE (test 26 MMOL/L 22-30 N code = CO2) GLUCOSE (test code = 146 MG/DL 74-106 H GLU) BLOOD UREA NITROGEN 10 MG/DL 7-17 N (test code = BUN) GLOMERULAR FILTRATION > 60 Report ing units: RATE (test code = GFR) ml/mi n/1.73 m2 (Modified MDRD Formula)Referen ce Range: > or = 6 0 ml/min/1.73 m2 CREATININE (test code 0.60 MG/DL 0.52-1.04 N = CREAT) CALCIUM (test code = 9.5 MG/DL 8.4-10.2 N CA) LIPID PROFILE (CORONARY RISK)2021-10-20 07:12:00 Test Item Value Reference Range Interpretation Comments TRIGLYCERIDES (test 355 MG/DL 150-199 H TRIGLYCE RIDES code = TRIG) REFERENCE RANGE:Normal: < 150 mg/dLBorderline High: 150-199 mg/dLHi gh: 200-499 mg/dLVe ry High: >=500 mg/ dL CHOLESTEROL (test code 296 MG/DL <200 = CHOL) HDL CHOLESTEROL (test 47 MG/DL 40-59 N code = HDL) LIPOPROTEIN LDL (test 170 MG/DL 0-99 H OPTIM AL.........<100 code = LDL) mg/dLNEAR OPTIMAL/ABOVE OPTIMAL........ .100-12 9 mg/dL BORDERL INE HIGH.........13 0-159 mg/dL HIGH.........16 0-189 mg/dL VERY HIGH.........>/ = 190 mg/dL [id number] 07:12:00 Test Item Value Reference Range Interpretation Comments MAGNESIUM (test code = MAG) 2.4 MG/DL 1.6-2.3 H PROTHROMBIN [id number] 06:35:00 Test Item Value Reference Range Interpretation Comments PROTHROMBIN TIME 10.0 SECONDS 9.4-12.7 N PATIENT (test code = PTP) INTERNATIONAL NORMAL 0.9 0.86-1.14 N The INR is to be RATIO (test code = used only for INR) monitoring oral anticoagulantth erap y. INDICATION I NR VALUE ---- ---- ---- -------1. Prophylaxis, de ep venous thrombos is, including high risk surgery. 2.0 - 3.0 2. Prophylaxis, deep venous thrombosis, hip surgery, treatm ent for deep venous thrombosis or pulmonary prevention of systemic emboli sm in patients wit h valvular heart disease, atrial fibrillation, tissue heart va lve, or acute myocar dial infarction. 2.0 - 3.0 3. Metal Smelter al prosthesis hear t valves, recurre nt systemic emboli sm. 3.0 - 4.5 PTT [id number] 06:35:00 Test Item Value Reference Range Interpretation Comments PTT ACTIVATED (test code = APTT) 22.6 SECONDS 26.2-35.4 L CBC W/AUTO [id number] 06:29:00 Test Item Value Reference Range Interpretation Comments WHITE BLOOD CELL (test code = 8.2 K/MM3 3.8-9.8 N WBC) RED BLOOD CELL (test code = 4.05 M/MM3 3.58-4.97 N RBC) HEMOGLOBIN (test code = HGB) 12.0 G/DL 11.2-14.9 N HEMATOCRIT (test code = HCT) 37.5 % 33.2-43.5 N MEAN CELL VOLUME (test code = 93 fL 80.7-99.1 N MCV) MEAN CELL HGB (test code = MCH) 29.6 pg 27.0-34.1 N MEAN CELL HGB CONCETRATION 32.0 % 32.2-35.7 L (test code = MCHC) RED CELL DISTRIBUTION WIDTH 13.5 % 12.1-15.2 N (test code = RDW) PLATELET COUNT (test code = 223 K/MM3 129-368 N PLT) MEAN PLATELET VOLUME (test code 10.1 fl 7.4-10.4 N = MPV) NEUTROPHIL % (test code = NT%) 56.6 % 43-75 N IMMATURE GRANULOCYTE % (test 0.5 % 0.0-2.0 N code = IG%) LYMPHOCYTE % (test code = LY%) 31.0 % 14-44 N MONOCYTE % (test code = MO%) 10.6 % 4-13 N EOSINOPHIL % (test code = EO%) 0.9 % 0-6 N BASOPHIL % (test code = BA%) 0.4 % 0-2 N NUCLEATED RBC % (test code = 0.0 % 0-1.0 N NRBC%) NEUTROPHIL # (test code = NT#) 4.63 K/mm3 2.0-7.6 N IMMATURE GRANULOCYTE # (test 0.04 x10 3/uL 0-0.03 H code = IG#) LYMPHOCYTE # (test code = LY#) 2.53 K/mm3 1.0-3.8 N MONOCYTE # (test code = MO#) 0.87 K/mm3 0.1-0.8 H EOSINOPHIL # (test code = EO#) 0.07 K/mm3 0.0-0.2 N BASOPHIL # (test code = BA#) 0.03 K/mm3 0.0-0.2 N NUCLEATED RBC # (test code = 0.00 K/mm3 0.0-0.1 N NRBC#) COVID 19 Asymptomatic IH [id number] 05:22:00 Test Item Value Reference Range Interpretation Comments COVID 19 NEGATIVE Negative "Negative resul ts from Asymptomatic IH AG patients with symptom (test code = onset beyondfiv e days, COVNONPUIAG) should be treat ed as presumptive, andconfirmation with a molecular assay , if necessary forpa tient management may be performed. Nega tive results do notr ule out COVID-19 and sh ould not be used as the sole basisfor treatm ent or patient managem ent decisions, includinginfect ion control decisio ns. Negative result s should beconsidered in the context of a pa tients recent exposure s,history, and the presenc e of clinical signs and symptomsconsist ent with COVID-19.This t est detects both vi able andnon-viable S ARS-CoV and SARS CoV-2. Test performance dep endson the amount of virus (antigen) in the sample." HIGH SENSITIVITY [id number] 14:23:00 Test Item Value Reference Range Interpretation Comments HS CRP (test code = 1777735214) 0.51 mg/dL <0.74 Lab Interpretation (test code = Normal 35117-3) [facility] [id number] 14:23:00 Test Item Value Reference Range Interpretation Comments HS CRP (test code = 8519708862) 0.51 mg/dL <0.74 Lab Interpretation (test code = Normal 39809-7) [facility] [id number] 21:24:00 Test Item Value Reference Range Interpretation Comments HCV Ab (test code = 57278-7) Negative HCV Semi-Quantitative (test code = 64859-9) [facility] [id number] 21:24:00 Test Item Value Reference Range Interpretation Comments HCV Ab (test code = 11642-3) Negative HCV Semi-Quantitative (test code = 86921-1) [facility]12, [id number] 21:20:00 Test Item Value Reference Range Interpretation Comments VIT B12 (test code = 186 pg/mL 240-930 L [id number]) MARCELLE (test code = MARCELLE) Biotin has been reported to cause a positive bias, interpret results relative to patient's use of biotin. Lab Interpretation (test Abnormal code = 48555-3) [facility] 21:20:00 Test Item Value Reference Range Interpretation Comments FOLATE SER (test code = 13.3 ng/mL 3-20 8769290548) Lab Interpretation (test code = Normal 99440-5) [facility], [id number] 21:20:00 Test Item Value Reference Range Interpretation Comments VIT B12 (test code = 186 pg/mL 240-930 L 3702054100) MARCELLE (test code = MARCELLE) Biotin has been reported to cause a positive bias, interpret results relative to patient's use of biotin. Lab Interpretation (test Abnormal code = 46608-6) [facility] 21:20:00 Test Item Value Reference Range Interpretation Comments FOLATE SER (test code = 13.3 ng/mL 3-20 1699894225) Lab Interpretation (test code = Normal 06960-4) [facility] D, [id number] 20:37:00 Test Item Value Reference Range Interpretation Comments VIT D 25OH (test code = 29 ng/mL 25-80 50748-3) MARCELLE (test code = MARCELLE) Deficiency: <20 ng/mLInsufficiency : 20-24 ng/mLOptimal: 25-80 ng/mL Lab Interpretation (test Normal code = 43215-5) [facility], [id number] 20:37:00 Test Item Value Reference Range Interpretation Comments VIT D 25OH (test code = 29 ng/mL 25-80 39501-8) MARCELLE (test code = MARCELLE) Deficiency: <20 ng/mLInsufficiency : 20-24 ng/mLOptimal: 25-80 ng/mL Lab Interpretation (test Normal code = 35139-8) [facility] 20:19:00 Test Item Value Reference Range Interpretation Comments Homocysteine (test code = 9.1 umol/L 4.7-12.6 7036510882) Lab Interpretation (test code = Normal 69711-8) [facility]2020-08-10 20:19:00 Test Item Value Reference Range Interpretation Comments Homocysteine (test code = 9.1 umol/L 4.7-12.6 5408602573) Lab Interpretation (test code = Normal 91693-9) [facility]GLYCOSYLATED HEMOGLOBIN (A1C)2020-01-31 18:38:00 Test Item Value Reference Range Interpretation Comments HGB A1C (test code = 7.0 % 4-6 H 4548-4) MARCELLE (test code = MARCELLE) %A1C (NGSP) Interpretation (ADA)4.8-5.6 ? ? Normal or (Non-Diabetic Range)5.7-6.4 ? ? Increased Risk (Pre-Diabetic)>6.5 ?Diabetes Indicated Lab Interpretation Abnormal (test code = 41264-7) [facility]GLOBIN (A1C)2020-01-31 18:38:00 Test Item Value Reference Range Interpretation Comments HGB A1C (test code = 7.0 % 4-6 H 4548-4) MARCELLE (test code = MARCELLE) %A1C (NGSP) Interpretation (ADA)4.8-5.6 ? ? Normal or (Non-Diabetic Range)5.7-6.4 ? ? Increased Risk (Pre-Diabetic)>6.5 ?Diabetes Indicated Lab Interpretation Abnormal (test code = 20939-1) [facility]ATING [id number] 18:31:00 Test Item Value Reference Range Interpretation Comments TSH (test code = See_Comment H [Automated message] 7677888645) The system NSC generated this result transmitted ref erence range: 0.45 - 4 .70 mIU/L. The refe rence range was not u sed to interpret this result as normal/abnor mal. Lab Interpretation (test Abnormal code = 84364-9) [facility] [id number] 18:31:00 Test Item Value Reference Range Interpretation Comments TSH (test code = See_Comment H [Automated message] 0985160303) The system NSC generated this result transmitted ref erence range: 0.45 - 4 .70 mIU/L. The refe rence range was not u sed to interpret this result as normal/abnor mal. Lab Interpretation (test Abnormal code = 38607-4) [facility] [id number] 18:17:00 Test Item Value Reference Range Interpretation Comments FREE T4 (test code = See_Comment L [Autom ated message] 4534049529) The system NSC generated this result transmitted ref erence range: 0.78 - 2 .20 ng/dL:. The ref erence range was not u sed to interpret this result as normal/abnor mal. Lab Interpretation (test Abnormal code = 68635-8) [facility] [id number] 18:17:00 Test Item Value Reference Range Interpretation Comments FREE T3 (test code = 0218675029) 2.55 pg/mL 2.77-5.27 L Lab Interpretation (test code = Abnormal 25377-4) [facility] [id number] 18:17:00 Test Item Value Reference Range Interpretation Comments FREE T4 (test code = See_Comment L [Autom ated message] 9907321317) The system NSC generated this result transmitted ref erence range: 0.78 - 2 .20 ng/dL:. The ref erence range was not u sed to interpret this result as normal/abnor mal. Lab Interpretation (test Abnormal code = 07585-1) [facility] [id number] 18:17:00 Test Item Value Reference Range Interpretation Comments FREE T3 (test code = 7802258115) 2.55 pg/mL 2.77-5.27 L Lab Interpretation (test code = Abnormal 46389-9) [facility] WITH [id number] 18:04:00 Test Item Value Reference Range Interpretation Comments WBC (test code = See_Comment [Automated message] 6690-2) The system NSC generated this result transmitted ref erence range: 4.30 - 1 1.10 10*3/?L. The re ference range was not u sed to interpret this result as normal/abnor mal. RBC (test code = See_Comment [Automated message] 789-8) The system NSC generated this result transmitted ref erence range: [...] RDW-SD (test code 42.1 fL 39-49.9 = 84168-2) RDW-CV (test code 13.2 % 12-15.5 = 788-0) PLT (test code = See_Comment [Automated message] 777-3) The system whic h generated this result transmitted ref erence range: 166 - 35 8 10*3/?L. The re ference range was not u sed to interpret this result as normal/abnor mal. MPV (test code = 11.2 fL 9.5-12.9 07983-7) NRBC/100 WBC (test See_Comment [Automat ed message] code = 2028558533) The syste m which generated this result transmitted ref erence range: 0.0 - 10 .0 /100 WBCs. The refer ence range was not u sed to interpret this result as normal/abnor mal. NRBC x10^3 (test <0.01 See_Comment [Automated message] code = 8630498239) The syste m which generated this result transmitted ref erence range: 10*3/?L. The reference range was not used to interpr et this result as normal/abnormal . GRAN MAT (NEUT) % 67.8 % (test code = 770-8) IMM GRAN % (test 0.50 % code = 1126587388) LYMPH % (test code 23.0 % = 736-9) MONO % (test code 7.8 % = 5905-5) EOS % (test code = 0.5 % 713-8) BASO % (test code 0.4 % = 706-2) GRAN MAT 5.57 10*3/uL 1.88-7.09 x10^3(ANC) (test code = 8783261319) IMM GRAN x10^3 0.04 10*3/uL 0-0.06 (test code = 4414253341) LYMPH x10^3 (test 1.89 10*3/uL 1.32-3.29 code = 731-0) MONO x10^3 (test 0.64 10*3/uL 0.33-0.92 code = 742-7) EOS x10^3 (test 0.04 10*3/uL 0.03-0.39 code = 711-2) BASO x10^3 (test 0.03 10*3/uL 0.01-0.07 code = 704-7) [facility]COMP[facility]OLIC PANEL (47350)2020-01-31 18:04:00 Test Item Value Reference Range Interpretation Comments NA (test code = 141 mmol/L 135-145 4625872822) K (test code = 3.7 mmol/L 3.5-5 6607825878) CL (test code = 102 mmol/L 98-108 1609250458) CO2 TOTAL (test code = 28 mmol/L 23-31 3328838716) AGAP (test code = 2-16 0757383125) BUN (test code = 14 mg/dL 7-23 0621881692) GLUCOSE (test code = 146 mg/dL 70-110 H 5821602127) CREATININE (test code = 0.68 mg/dL 0.5-1.04 9512879553) TOTAL BILI (test code = 0.6 mg/dL 0.1-1.2 9508454163) CALCIUM (test code = 10.0 mg/dL 8.6-10.6 0151676761) T PROTEIN (test code = 8.2 g/dL 6.3-8.2 0101209635) ALBUMIN (test code = 4.9 g/dL 3.5-5 4073628839) ALK PHOS (test code = 80 U/L 34-122 9164132724) ALTv (test code = 15 U/L 5-35 1742-6) AST(SGOT) (test code = 22 U/L 13-40 7504099873) eGFR Calculation mL/min/1.73m2 (Non-) (test code = 6401965949) eGFR Calculation mL/min/1.73m2 () (test code = 5575854992) MARCELLE (test code = MARCELLE) Association of [...] tests). Lab Interpretation Abnormal (test code = 67063-4) [facility] HospitalLIPID PANEL (12815)(TOTAL CHOLESTEROL, TRIGLYCERIDES, HDL)2020-01-31 18:04:00 Test Item Value Reference Range Interpretation Comments CHOL (test code = 277 mg/dL 120-200 H 7227940968) HDL (test code = 46 mg/dL >50 L 7122787622) HDLC RATIO (test code = See_Comment H [Au tomated message] 0001293094) The system NSC generated this result transmit allie reference range : <=4.5. The refe rence range was not u sed to interpret th is result as normal/abnormal . TRIG (test code = 365 mg/dL 30-170 H 5002169891) LDL CHOL (test code = 158 mg/dL See_Comment [Auto mated message] 21936-2) The system NSC generated this result transmit allie reference range : <=160. The refe rence range was not u sed to interpret th is result as normal/abnormal . VLDL (test code = 73 mg/dL 5-60 H 0108410605) Lab Interpretation (test Abnormal code = 64019-0) [facility] WITH [id number] 18:04:00 Test Item Value Reference Range Interpretation Comments WBC (test code = See_Comment [Automated message] 6690-2) The system NSC generated this result transmitted ref erence range: 4.30 - 1 1.10 10*3/?L. The re ference range was not u sed to interpret this result as normal/abnor mal. RBC (test code = See_Comment [Automated message] 979-8) The system NSC generated this result transmitted ref erence range: [...] RDW-SD (test code 42.1 fL 39-49.9 = 26170-4) RDW-CV (test code 13.2 % 12-15.5 = 788-0) PLT (test code = See_Comment [Automated message] 777-3) The system NSC generated this result transmitted ref erence range: 166 - 35 8 10*3/?L. The re ference range was not u sed to interpret this result as normal/abnor mal. MPV (test code = 11.2 fL 9.5-12.9 26060-0) NRBC/100 WBC (test See_Comment [Automat ed message] code = 0361378019) The syste m which generated this result transmitted ref erence range: 0.0 - 10 .0 /100 WBCs. The refer ence range was not u sed to interpret this result as normal/abnor mal. NRBC x10^3 (test <0.01 See_Comment [Automated message] code = 6557249148) The syste m which generated this result transmitted ref erence range: 10*3/?L. The reference range was not used to interpr et this result as normal/abnormal . GRAN MAT (NEUT) % 67.8 % (test code = 770-8) IMM GRAN % (test 0.50 % code = 9394733975) LYMPH % (test code 23.0 % = 736-9) MONO % (test code 7.8 % = 5905-5) EOS % (test code = 0.5 % 713-8) BASO % (test code 0.4 % = 706-2) GRAN MAT 5.57 10*3/uL 1.88-7.09 x10^3(ANC) (test code = 2378275873) IMM GRAN x10^3 0.04 10*3/uL 0-0.06 (test code = 8848340020) LYMPH x10^3 (test 1.89 10*3/uL 1.32-3.29 code = 731-0) MONO x10^3 (test 0.64 10*3/uL 0.33-0.92 code = 742-7) EOS x10^3 (test 0.04 10*3/uL 0.03-0.39 code = 711-2) BASO x10^3 (test 0.03 10*3/uL 0.01-0.07 code = 704-7) [facility] (51428)2020-01-31 18:04:00 Test Item Value Reference Range Interpretation Comments NA (test code = 141 mmol/L 135-145 9526330869) K (test code = 3.7 mmol/L 3.5-5 0552713774) CL (test code = 102 mmol/L 98-108 8477591790) CO2 TOTAL (test code = 28 mmol/L 23-31 5435593337) AGAP (test code = 2-16 2788761340) BUN (test code = 14 mg/dL 7-23 8805248476) GLUCOSE (test code = 146 mg/dL 70-110 H 5285542102) CREATININE (test code = 0.68 mg/dL 0.5-1.04 0821169637) TOTAL BILI (test code = 0.6 mg/dL 0.1-1.8 4654430720) CALCIUM (test code = 10.0 mg/dL 8.6-10.6 0120346428) T PROTEIN (test code = 8.2 g/dL 6.3-8.2 4742962534) ALBUMIN (test code = 4.9 g/dL 3.5-5 8114961436) ALK PHOS (test code = 80 U/L 34-122 1350687959) ALTv (test code = 15 U/L 5-35 1742-6) AST(SGOT) (test code = 22 U/L 13-40 3798029524) eGFR Calculation mL/min/1.73m2 (Non-) (test code = 0425612075) eGFR Calculation mL/min/1.73m2 () (test code = 3683855281) MARCELLE (test code = MARCELLE) Association of [...] tests). Lab Interpretation Abnormal (test code = 00823-2) [facility]63597[facility]TOTAL CHOLESTEROL, TRIGLYCERIDES, HDL)2020-01-31 18:04:00 Test Item Value Reference Range Interpretation Comments CHOL (test code = 277 mg/dL 120-200 H 2635754741) HDL (test code = 46 mg/dL >50 L 6975317826) HDLC RATIO (test code = See_Comment H [Au tomated message] 8974473845) The system NSC generated this result transmit allie reference range : <=4.5. The refe rence range was not u sed to interpret th is result as normal/abnormal . TRIG (test code = 365 mg/dL 30-170 H 8285946815) LDL CHOL (test code = 158 mg/dL See_Comment [Auto mated message] 41209-0) The system NSC generated this result transmit allie reference range : <=160. The refe rence range was not u sed to interpret th is result as normal/abnormal . VLDL (test code = 73 mg/dL 5-60 H 1531732927) Lab Interpretation (test Abnormal code = 44770-7) [facility]ACT[facility][id number] 06:49:00 Test Item Value Reference Range Interpretation Comments ACT-ISTAT (test code = ACTI) 158 SEC 74-137 H [id number] 06:49:00 Test Item Value Reference Range Interpretation Comments ACT-ISTAT (test code = ACTI) 180 SEC 74-137 H [id number] 06:49:00 Test Item Value Reference Range Interpretation Comments ACT-ISTAT (test code = ACTI) 224 SEC 74-137 H GLUCOSE BEDSIDE [id number] 08:44:00 Test Item Value Reference Range Interpretation Comments GLUCOSE BEDSIDE TESTING (test code 124 MG/DL 60-99 H = GLUBED) BASIC METABOLIC [id number] 07:40:00 Test Item Value Reference Range Interpretation [...] 8.4 MG/DL 8.4-10.2 N CA) BASIC METABOLIC [id number] 07:38:00 Test Item Value Reference Range Interpretation [...] code = MG/DL 8.7-9.7 CA) BASIC METABOLIC [id number] 07:36:00 Test Item Value Reference Range Interpretation [...] code = CA) MG/DL 8.7-9.7 BASIC METABOLIC [id number] 07:35:00 Test Item Value Reference Range Interpretation [...] code = CA) MG/DL 8.7-9.7 CBC W/AUTO [id number] 07:18:00 Test Item Value Reference Range Interpretation [...] code = 0.00 K/mm3 0.0-0.1 N NRBC#) [id number] 13:37:00 Test Item Value Reference Range Interpretation Comments ACT-ISTAT (test code = ACTI) 373 SEC 74-137 H [id number] 13:37:00 Test Item Value Reference Range Interpretation Comments ACT-ISTAT (test code = ACTI) 296 SEC 74-137 H [id number] 13:37:00 Test Item Value Reference Range Interpretation Comments ACT-ISTAT (test code = ACTI) 318 SEC 74-137 H [id number] 13:37:00 Test Item Value Reference Range Interpretation Comments ACT-ISTAT (test code = ACTI) 417 SEC 74-137 H [id number] 13:37:00 Test Item Value Reference Range Interpretation Comments ACT-ISTAT (test code = ACTI) 345 SEC 74-137 H [id number] 13:37:00 Test Item Value Reference Range Interpretation Comments ACT-ISTAT (test code = ACTI) 268 SEC 74-137 H BASIC METABOLIC [id number] 07:38:00 Test Item Value Reference Range Interpretation [...] code = 9.7 MG/DL 8.4-10.2 N CA) [id number] 07:38:00 Test Item Value Reference Range Interpretation Comments MAGNESIUM (test code = MAG) 1.8 MG/DL 1.6-2.3 N BASIC METABOLIC [id number] 07:37:00 Test Item Value Reference Range Interpretation [...] CALCIUM (test code = MG/DL 8.7-9.7 CA) [id number] 07:37:00 Test Item Value Reference Range Interpretation Comments MAGNESIUM (test code = MAG) MG/DL 1.6-2.3 BASIC METABOLIC [id number] 07:37:00 Test Item Value Reference Range Interpretation [...] code = 9.7 MG/DL 8.4-10.2 N CA) [id number] 07:37:00 Test Item Value Reference Range Interpretation Comments MAGNESIUM (test code = MAG) MG/DL 1.6-2.3 BASIC METABOLIC [id number] 07:33:00 Test Item Value Reference Range Interpretation [...] CALCIUM (test code = CA) MG/DL 8.7-9.7 [id number] 07:33:00 Test Item Value Reference Range Interpretation Comments MAGNESIUM (test code = MAG) MG/DL 1.6-2.3 PROTHROMBIN [id number] 07:19:00 Test Item Value Reference Range Interpretation Comments PROTHROMBIN TIME 11.1 SECONDS 9.4-12.5 N PATIENT (test code = PTP) INTERNATIONAL NORMAL 1.0 The INR is to be RATIO (test code = used only for INR) monitoring oral anticoagulantth erap y. INDICATION I NR VALUE ---- ---- ---- -------1. Prophylaxis, de ep venous thrombos is, including high risk surgery. 2.0 - 3.0 2. Prophylaxis, deep venous thrombosis, hip surgery, treatm ent for deep venous thrombosis or pulmonary prevention of systemic emboli sm in patients wit h valvular heart disease, atrial fibrillation, tissue heart va lve, or acute myocar dial infarction. 2.0 - 3.0 3. Metal Smelter al prosthesis hear t valves, recurre nt systemic emboli sm. 3.0 - 4.5 PTT [id number] 07:19:00 Test Item Value Reference Range Interpretation Comments PTT ACTIVATED (test code = APTT) 34.2 SECONDS 25.1-36.5 N CBC W/AUTO [id number] 07:03:00 Test Item Value Reference Range Interpretation [...] 0.00 K/mm3 0.0-0.1 N NRBC#) GLUCOSE BEDSIDE [id number] 08:47:00 Test Item Value Reference Range Interpretation Comments GLUCOSE BEDSIDE TESTING (test code 130 MG/DL 60-99 H = GLUBED) BASIC METABOLIC [id number] 10:13:00 Test Item Value Reference Range Interpretation [...] code = 9.8 MG/DL 8.4-10.2 N CA) [id number] 10:13:00 Test Item Value Reference Range Interpretation Comments MAGNESIUM (test code = MAG) 1.8 MG/DL 1.6-2.3 N BASIC METABOLIC [id number] 10:12:00 Test Item Value Reference Range Interpretation [...] CALCIUM (test code = MG/DL 8.7-9.7 CA) [id number] 10:12:00 Test Item Value Reference Range Interpretation Comments MAGNESIUM (test code = MAG) MG/DL 1.6-2.3 PROTHROMBIN [id number] 10:10:00 Test Item Value Reference Range Interpretation Comments PROTHROMBIN TIME 16.0 SECONDS 9.4-12.5 H PATIENT (test code = PTP) INTERNATIONAL NORMAL 1.4 The INR is to be RATIO (test code = used only for INR) monitoring oral anticoagulantth erap y. INDICATION INR VALUE ---- ---- ---- -------1. Prophylaxis, de ep venous thrombos is, including high risk surgery. 2.0 - 3.0 2. Prophylaxis, deep venous thrombosis, hip surgery, treatm ent for deep venous thrombosis or pulmonary prevention of systemic emboli sm in patients wit h valvular heart disease, atrial fibrillation, tissue heart va lve, or acute myocar dial infarction. 2.0 - 3.0 3. Metal Smelter al prosthesis hear t valves, recurre nt systemic emboli sm. 3.0 - 4.5 PTT [id number] 10:10:00 Test Item Value Reference Range Interpretation Comments PTT ACTIVATED (test code = APTT) 40.3 SECONDS 25.1-36.5 H BASIC METABOLIC [id number] 10:09:00 Test Item Value Reference Range Interpretation [...] CALCIUM (test code = CA) MG/DL 8.7-9.7 [id number] 10:09:00 Test Item Value Reference Range Interpretation Comments MAGNESIUM (test code = MAG) MG/DL 1.6-2.3 CBC W/AUTO [id number] 09:56:00 Test Item Value Reference Range Interpretation [...] 0.0-0.1 N NRBC#) XR WRIST <3 VW [id number] 19:17:01Transverse fracture distal radius no volar or dorsal angulation which shows callus formation today in an acceptable alignment there is also some callus formation on the ULNAR styloid fracture. [facility]
--- NOTE | 2022-06-06 23:08 | RAD REPORT ---
EXAM DESCRIPTION: RAD - Chest Pa And Lat (2 Views) - 06/06/2022 11:00 pm CLINICAL HISTORY: wheezing COMPARISON: No comparisons FINDINGS: Lines: None. Lungs: Diffuse prominence of the pulmonary interstitium. Pleural: No significant pleural effusions or pneumothorax. Cardiac: The heart size is within normal limits. Mediastinum: Within normal limits. Bones: No acute fractures. Other: None IMPRESSION: Nonspecific increased interstitial markings bilaterally which could reflect in atypical infectious or inflammatory process.
[2022-06-06] MEDS ORDERED: ALBUTEROL 2.5 MG/3 ML NEB SOL ONE (23:15)
[2022-06-06] MEDS ORDERED: IPRATROPIUM BROM 0.5MG/2.5ML ONE (23:15)
[2022-06-06] MEDS ORDERED: METHYLPREDNISOLONE 40 MG INJ ONE (23:15)
[2022-06-07 00:52] LABS: Absolute Lymphocytes (CBC) 1.1 K/uL (0.7-4.9); Hematocrit 35.6 % (36.0-45.0); MCV 84.8 fL (80-100)
[2022-06-07 01:10] LABS: Magnesium 1.9 mg/dL (1.6-2.4); Potassium 3.5 mmol/L (3.5-5.1)
--- NOTE | 2022-06-07 01:26 | ER ---
Nurse's Notes [facility] [place] Name: Alba Kaur Age: 77 yrs Sex: Female : 1945 Arrival Date: 06/06/2022 Time: 22:14 Bed 20 Private MD: Diagnosis: Unspecified combined systolic (congestive) and diastolic (congestive) heart failure Presentation: 06/06 22:25 Chief complaint: Patient states: I feel better now but i was wheezing and having issues kd3 breathing. My chest also felt real tight. I don't have any pain at the moment. Coronavirus screen: Vaccine status: Patient reports receiving the 2nd dose of the covid vaccine. Ebola Screen: No symptoms or risks identified at this time. 22:25 Method Of Arrival: Ambulatory kd3 22:33 Initial Sepsis Screen: Does the patient meet any 2 criteria? RR > 20 per min. No. kd3 Patient's initial sepsis screen is negative. Does the patient have a suspected source of infection? No. Patient's initial sepsis screen is negative. Risk Assessment: Do you want to hurt yourself or someone else? Patient reports no desire to harm self or others. Onset of symptoms was June 06, 2022. 22:33 Acuity: FERNIE 3 kd3 Triage Assessment: 22:34 General: Appears in no apparent distress. Behavior is calm, cooperative. Pain: Denies kd3 pain. Neuro: Level of Consciousness is awake, alert, obeys commands, Oriented to person, place, time, situation. Cardiovascular: Patient's skin is warm and dry. Respiratory: Airway is patent Trachea midline Respiratory effort is shallow, Respiratory pattern is tachypnea. Historical: - Home Meds: 22:34 losartan 50 mg Oral tab 1 tab once daily [Active]; metformin 1,000 mg Oral tab 1 tab 2 kd3 times per day [Active]; venlafaxine Oral [Active]; - PMHx: 22:34 Anxiety; Hypertensive disorder; diabetes mellitus; kd3 - Immunization history:: Adult Immunizations up to date. - Social history:: Smoking status: unknown. Screenin:34 Abuse screen: Denies threats or abuse. Denies injuries from another. Nutritional ha1 screening: No deficits noted. Tuberculosis screening: No symptoms or risk factors identified. 06/07 00:44 [facility] ED Fall Risk Assessment (Adult) History of falling in the last 3 months, kd3 including since admission No falls in past 3 months (0 pts) Confusion or Disorientation No (0 pts) Intoxicated or Sedated No (0 pts) Impaired Gait No (0 pts) Mobility Assist Device Used No (0 pt) Altered Elimination No (0 pt) Score/Fall Risk Level 0 - 2 = Low Risk. Humpty Dumpty Scale Fall Assessment Tool (age< 18yrs) Age 13 years and above (1 pt) Gender Female (1 pt) Diagnosis Other diagnosis (1 pt) Cognitive Impairments Oriented to own ability (1 pt) Environmental Factors Outpatient area (1 pt) Response to Surgery/Sedation/Anesthesia More than 48 hours/ None (1 pt) Medication Usage Other medications/ None (1 pt) Fall Risk Score/ Level Low Fall Risk: </= 11 points. Fall Risk No fall in past 12 months (0 pts). No secondary diagnosis (0 pts). IV access (20 points). Ambulatory Aid- None/Bed Rest/Nurse Assist (0 pts). Gait- Normal/Bed Rest/Wheelchair (0 pts) Mental Status- Oriented to own ability (0 pts). Total Cornejo Fall Scale indicates No Risk (0-24 pts). Assessment: 06/06 22:35 General: pt O2 in the 80's on room air. pt brought back to a room and is now on 2 L n/c kd3 and sat in the 90's. Neuro: Level of Consciousness is awake, alert, obeys commands, Oriented to person, place, time, situation. 23:15 Reassessment: Patient and/or family updated on plan of care and expected duration. Pain ha1 level reassessed. Patient is alert, oriented x 3, equal unlabored respirations, skin warm/dry/pink. Patient denies pain at this time. Patient states symptoms have improved. Vital Signs: 22:25 BP 160 / 70; Pulse 81; Resp 24; Temp 98.4(TE); Pulse Ox 83% ; Weight 65.32 kg; Height 5 kd3 ft. 9 in. (175.26 cm); Pain 0/10; 22:35 BP 147 / 67; Pulse 84; Resp 20; Pulse Ox 98% on 2 lpm NC; kd3 23:10 BP 154 / 63; Pulse 74; Resp 19; kl 23:55 BP 162 / 74; Pulse 77; Resp 18; Pulse Ox 90% on 2 lpm NC; kd3 06/07 00:45 BP 164 / 68; Pulse 74; Resp 17; Pulse Ox 100% on 3 lpm NC; kd3 02:09 BP 159 / 64; Pulse 63; Resp 20; Pulse Ox 97% on 3 lpm NC; kd3 06/06 22:25 Body Mass Index 21.26 (65.32 kg, 175.26 cm) kd3 ED Course: 06/06 22:14 Patient arrived in ED. es 22:33 Arlen Dominguez, SIRISHA is Primary Nurse. kd3 22:34 Triage completed. kd3 22:34 Arm band placed on right wrist. kd3 22:35 Alin Perez NP is PHCP. pm1 22:35 Royce Griffiths MD is Attending Physician. pm1 23:02 Chest Pa And Lat (2 Views) XRAY In Process Unspecified. EDMS 12 00:44 No provider procedures requiring assistance completed. Inserted saline lock: 20 gauge kd3 in right antecubital area, using aseptic technique. Blood collected. 00:45 Patient has correct armband on for positive identification. Placed in gown. kd3 00:46 XRAY Chest (1 view) In Process Unspecified. EDMS 01:24 Kavita Kimball PA-C is Hospitalizing Provider. pm1 05:19 Raquel Ge MD is Hospitalizing Provider. sb4 12:37 Patient admitted, IV remains in place. kc6 Administered Medications: 06/06 23:15 Drug: SOLU-Medrol (methylPREDNISolone sodium succinate) 80 mg Route: IM; Site: right ha1 vastus lateralis; 23:17 Drug: Albuterol 2.5 mg Route: Inhalation; ha1 23:17 Drug: AtroVENT (ipratropium) Aerosol 0.5 mg Route: Inhalation; ha1 06/07 02:02 Drug: Lasix (furosemide) 40 mg Route: IVP; Site: left antecubital; kd3 Medication: 06/06 22:35 VIS not applicable for this client. kd3 Outcome: 06/07 01:25 Decision to Hospitalize by Provider. pm1 12:37 Admitted to Med/surg accompanied by tech, via stretcher, room 212, with chart, Report kc6 called to sirisha miranda 12:37 Condition: stable 12:37 Instructed on the need for admit. 12:51 Patient left the ED. jd3 Signatures: Dispatcher [employer] Gabriela Aguilera RN Odalis Rivera Patrick, DISTRIBUTOR SALES CONSULTANT DISTRIBUTOR SALES CONSULTANT pm1 Keyshawn Salomon RN RN jd3 Arlen Dominguez RN RN kd3 Leanne Martinez RN RN ha1 Maria T Saucedo RN RN [email or web address] Kavita Kimball, PA-C PA-C sb4
--- NOTE | 2022-06-07 01:26 | EDPHYS ---
Physician Documentation [facility] Name: Alba Kaur Age: 77 yrs Sex: Female : 1945 Arrival Date: 06/06/2022 Time: 22:14 Bed 20 Private MD: ED Physician Royce Griffiths HPI: 06/06 22:41 This 77 yrs old Female presents to ER via Ambulatory with complaints of wheezing and pm1 shortness of breath. 22:41 The patient presents to the emergency department with wheezing, Current therapy: None, pm1 that began without any particular precipitating event, the patient was reported to have chest tightness, trouble breathing. Onset: The symptoms/episode began/occurred 2 hour(s) ago. Modifying factors: The symptoms are alleviated by nothing, the symptoms are aggravated by nothing. Associated signs and symptoms: Pertinent positives: wheezing, Pertinent negatives: fever, nausea, palpitations, vomiting, cough. Severity of symptoms: in the emergency department the symptoms have improved moderately. The patient has not experienced similar symptoms in the past. The patient has not recently seen a physician. Historical: - Home Meds: 22:34 losartan 50 mg Oral tab 1 tab once daily [Active]; metformin 1,000 mg Oral tab 1 tab 2 kd3 times per day [Active]; venlafaxine Oral [Active]; - PMHx: 22:34 Anxiety; Hypertensive disorder; diabetes mellitus; kd3 - Immunization history:: Adult Immunizations up to date. - Social history:: Smoking status: unknown. ROS: 22:41 Constitutional: Negative for fever, chills, and weight loss, Eyes: Negative for injury, pm1 pain, redness, and discharge, ENT: Negative for injury, pain, and discharge. 22:41 Abdomen/GI: Negative for abdominal pain, nausea, vomiting, diarrhea, and constipation, Back: Negative for injury and pain, MS/Extremity: Negative for injury and deformity, Skin: Negative for injury, rash, and discoloration, Neuro: Negative for headache, weakness, numbness, tingling, and seizure. 22:41 Cardiovascular: Positive for chest pain, Negative for edema, orthopnea, palpitations. 22:41 Respiratory: Positive for shortness of breath, wheezing, Negative for cough. 22:41 All other systems are negative. Exam: 22:41 Constitutional: This is a well developed, well nourished patient who is awake, alert, pm1 and in no acute distress. Head/Face: Normocephalic, atraumatic. 22:41 Back: No spinal tenderness. No costovertebral tenderness. Full range of motion. Skin: Warm, dry with normal turgor. Normal color with no rashes, no lesions, and no evidence of cellulitis. MS/ Extremity: Pulses equal, no cyanosis. Neurovascular intact. Full, normal range of motion. 22:41 Eyes: Exam is negative for acute changes, Periorbital structures: no acute changes, Pupils: no acute changes, Extraocular movements: no acute changes, Conjunctiva: no acute changes, no injection. 22:41 ENT: Exam is negative for acute changes, Mouth: no acute changes, Lips: normal, moist, Oral mucosa: normal, pink and intact, moist. 22:41 Cardiovascular: Exam negative for acute changes, Rate: normal, Rhythm: regular, Pulses: no pulse deficits are appreciated, Heart sounds: normal, normal S1and S2, Edema: is not appreciated. 22:41 Respiratory: the patient does not display signs of respiratory distress, Respirations: no acute changes, Breath sounds: wheezing: expiratory is heard in the left posterior upper lobe and right posterior upper lobe. 22:41 Abdomen/GI: Exam negative for acute changes, Inspection: abdomen appears normal, Palpation: abdomen is soft and non-tender, in all quadrants. 22:41 Neuro: Exam negative for acute changes, Orientation: is normal, Mentation: is normal, Motor: is normal, moves all fours. Vital Signs: 22:25 BP 160 / 70; Pulse 81; Resp 24; Temp 98.4(TE); Pulse Ox 83% ; Weight 65.32 kg; Height 5 kd3 ft. 9 in. (175.26 cm); Pain 0/10; 22:35 BP 147 / 67; Pulse 84; Resp 20; Pulse Ox 98% on 2 lpm NC; kd3 23:10 BP 154 / 63; Pulse 74; Resp 19; kl 23:55 BP 162 / 74; Pulse 77; Resp 18; Pulse Ox 90% on 2 lpm NC; kd3 12/16 00:45 BP 164 / 68; Pulse 74; Resp 17; Pulse Ox 100% on 3 lpm NC; kd3 02:09 BP 159 / 64; Pulse 63; Resp 20; Pulse Ox 97% on 3 lpm NC; kd3 06/06 22:25 Body Mass Index 21.26 (65.32 kg, 175.26 cm) kd3 MDM: 06/06 22:36 Patient medically screened. pm1 06/07 00:32 Data reviewed: vital signs. pm1 01:23 Counseling: I had a detailed discussion with the patient and/or guardian regarding: the pm1 historical points, exam findings, and any diagnostic results supporting the discharge/admit diagnosis, lab results, radiology results, the need for further work-up and treatment in the hospital. 01:23 Physician consultation: Kavita Kimball PA-C was contacted at 01:24, regarding admission, pm1 patient's condition, and will see patient in ED, shortly. 01:25 ED course: Patient with desaturation into the 80s when nasal cannula discontinued. pm1 Patient does not use oxygen at home and is unaware of a history of congestive heart failure. Therefore we will admit the patient for diuresis along with supplemental oxygen. 06/07 00:08 Order name: Basic Metabolic Panel; Complete Time: 01:11 pm1 06/07 00:08 Order name: CBC with Diff; Complete Time: 01:07 pm1 06/07 00:08 Order name: Magnesium; Complete Time: 01:11 pm1 06/07 00:08 Order name: Troponin HS; Complete Time: 01:11 pm1 06/07 00:48 Order name: NT PRO-BNP; Complete Time: 01:11 EDMS 06/06 22:41 Order name: Chest Pa And Lat (2 Views) XRAY; Complete Time: 23:22 pm1 06/07 00:08 Order name: XRAY Chest (1 view) pm1 06/07 02:29 Order name: SARS-COV-2 Antigen Rapid; Complete Time: 02:35 EDMS 06/07 07:31 Order name: Glucose, Ancillary Testing EDDC 06/07 11:51 Order name: Glucose, Ancillary Testing EDDC 06/07 00:08 Order name: EKG; Complete Time: 00:09 pm1 06/07 00:08 Order name: Cardiac monitoring; Complete Time: 00:39 pm1 06/07 00:08 Order name: EKG - Nurse/Tech; Complete Time: 00:39 pm1 06/07 00:08 Order name: IV Saline Lock; Complete Time: 00:39 pm1 06/07 00:08 Order name: Labs collected and sent; Complete Time: 00:39 pm1 06/07 00:08 Order name: O2 Per Protocol; Complete Time: 00:39 pm1 06/07 00:08 Order name: O2 Sat Monitoring; Complete Time: 00:39 pm1 Administered Medications: 06/06 23:15 Drug: SOLU-Medrol (methylPREDNISolone sodium succinate) 80 mg Route: IM; Site: right ha1 vastus lateralis; 23:17 Drug: Albuterol 2.5 mg Route: Inhalation; 1 23:17 Drug: AtroVENT (ipratropium) Aerosol 0.5 mg Route: Inhalation; 1 06/07 02:02 Drug: Lasix (furosemide) 40 mg Route: IVP; Site: left antecubital; kd3 Disposition Summary: 06/07/22 01:25 Hospitalization Ordered Hospitalization Status: Observation pm1 Condition: Stable pm1 Problem: new pm1 Symptoms: have improved pm1 Bed/Room Type: Standard pm1 Provider: Raquel Ge(06/07/22 05:19) sb4 Location: Telemetry/MedSurg (observation)(06/07/22 12:30) eb Room Assignment: [facility](06/07/22 12:30) eb Diagnosis - Unspecified combined systolic (congestive) and diastolic (congestive) heart failure pm1 Forms: - Medication Reconciliation Form pm1 - SBAR form pm1 Signatures: Dispatcher [employer] EDMS Kamini Lynn RN RN Alin Perez NP BLEMISH REMOVER pm1 Chantel Kaplan Kyli, RN RN kd3 Leanne Martinez RN RN ha1 Kavita Kimball, PARuiC PANoemi sb4 Corrections: (The following items were deleted from the chart) 00:48 00:33 PROBNP+C.LAB.BRZ ordered. EDMS EDMS 01:56 01:25 Telemetry/MedSurg (observation) 1 01:56 01:25 pm1 02:29 01:22 COVID-19/FLU A+B+MOL.LAB.BRZ ordered. EDMS EDMS 05:19 01:25 Kavita Kimball pm1 sb4 12:30 01:56 [facility] ER HOLD mw eb 12:30 01:56 ERHOLD- mw eb
[2022-06-07] MEDS ORDERED: FUROSEMIDE 40 MG/4 ML VIAL ONE (01:59)
--- NOTE | 2022-06-07 02:01 | P.HP ---
Certification for Inpatient Patient admitted to: Observation With expected LOS: <2 Midnights Patient will require the following post-hospital care: None Practitioner: I am a practitioner with admitting privileges, knowledge of patient current condition, hospital course, and medical plan of care. Services: Services provided to patient in accordance with Admission requirements found in Title 42 Section 412.3 of the Code of Federal Regulations Patient History Date of Service: 06/07/22 Reason for admission: CHF, New Onset History of Present Illness: Patient is a 77-year-old female with past medical history of hypertension, tud-[id number] type 2 diabetes, and coronary artery disease who presented to the ED with complaints of shortness of breath, chest tightness, and wheezing. She states that it began about 2 hours prior to arrival and has now resolved. However she was noted to be saturating 83% on room air. She was placed on supplemental O2. Her labs were significant for WBC 13.8, hemoglobin 11.4, BNP 1600. COVID-negative. Chest x-ray showed "Enlarged heart with mild congestive heart failure. Infiltrate and pulmonary congestion as well as atelectatic change mid and lower lungs bilaterally. Underlying chronic changes." Patient denies any history of congestive heart failure. She received breathing treatments, Solu-Medrol, and Lasix in the ED. when O2 weaning was attempted, she desaturated. Patient will be admitted for further evaluation and treatment. Allergies No Known Allergies Allergy (Verified 09/29/15 10:09) Home medications list reviewed: Yes - Past Medical/Surgical History Diabetic: Yes -: Hypertension -: Type 2 Diabetes, Non-Insulin Dependent -: Coronary Artery Disease -: Hysterectomy -: Cardiac cath with stents Psychosocial/ Personal History: Patient lives at home with family. - Family History Father -: Heart disease, Diabetes Mother -: Other (see notes) (Alzheimers) - Social History Smoking Status: Former smoker Alcohol use: No CD- Drugs: No Caffeine use: Yes Place of Residence: Home Review of Systems Respiratory: Shortness of Breath, Wheezing Physical Examination - Vital Signs Temperature: 98.4 F Blood Pressure: 159/64 Pulse: 63 Respirations: 20 Pulse Ox (%): 97 (3L NC) - Physical Exam General: Alert, In no apparent distress HEENT: Atraumatic, PERRLA, EOMI, Sclerae nonicteric Neck: Supple, 2+ carotid pulse no bruit Respiratory: Expiratory wheezes Cardiovascular: No edema, Regular rate/rhythm, Normal S1 S2 Gastrointestinal: Normal bowel sounds, No tenderness Musculoskeletal: No tenderness Integumentary: No rashes Neurological: Normal speech, Normal strength at 5/5 x4 extr, Normal tone, Normal affect - Studies Laboratory Data (last 24 hrs) 06/07/22 00:41: WBC 13.80 H, Hgb 11.4 L, Hct 35.6 L, Plt Count 240 06/07/22 00:41: Sodium 137, Potassium 3.5, BUN 8, Creatinine 0.81, Glucose 154 H, Magnesium 1.9 Assessment and Plan - Problems (Diagnosis) (1) New onset of congestive heart failure Current Visit: Yes Status: Acute (2) Hypertension Current Visit: Yes Status: Chronic Qualifiers: Hypertension type: primary hypertension Qualified Code(s): I10 - Essential (primary) hypertension (3) Type 2 diabetes mellitus Current Visit: Yes Status: Chronic Qualifiers: 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 transplanted heart: [place] heart Associated angina: without angina Qualified Code(s): I25.10 - Atherosclerotic heart disease of [place] coronary artery without angina pectoris - Plan Patient is admitted for further evaluation of new onset congestive heart failure. Cardiology consulted and echo ordered. She received Lasix in the ED. We will hold off on additional and see how she responds. Titrate O2. Breathing treatments as needed. ACHS Accu-Cheks with mild sliding scale and diabetic diet. Monitor and replete electrolytes per protocol. Reconcile and continue home medications. Lovenox for VTE prophylaxis Full code Discharge Plan: Home Plan to discharge in: 24 Hours - Advance Directives Does patient have a Living Will: No Does patient have a Durable POA for Healthcare: No - Code Status/Comfort Care Code Status Assessed: Yes Code Status: Full Code Physician Review: Patient Assessed, Agree with Above Assessment and Plan Critical Care: No Time Spent Managing Pts Care (In Minutes): 50
[2022-06-07 02:34] LABS: SARS-CoV-2 Antigen Rapid Res Negative (Negative)
[2022-06-07] MEDS ORDERED: ACETAMINOPHEN 500 MG TAB PO PRN (03:10)
[2022-06-07] MEDS ORDERED: ONDANSETRON 4 MG/2 ML VIAL IV PRN (03:10)
[2022-06-07] MEDS ORDERED: ALBUTEROL 2.5 MG/3 ML NEB SOL NEB PRN (05:00)
[2022-06-07] MEDS: INSULIN -REGULAR HUMAN 50 UNIT/0.5 ML ML SQ SCH ×4 (07:30→19:51)
[2022-06-07] MEDS ORDERED: ENOXAPARIN 40 MG/0.4 ML SQ ONE (07:50)
[2022-06-07] MEDS: ENOXAPARIN 40 MG/0.4 ML SQ SCH (08:05)
--- NOTE | 2022-06-07 13:55 | ECHO ---
HEIGHT: 5 ft 9 in WEIGHT: 144 lb 0.095 oz DATE OF STUDY: 06/07/[address]: Kavita Kimball 2-DIMENSIONAL: YES M.MODE: YES DOPPLER: YES COLOR FLOW: YES TDS: PORTABLE: YES DEFINITY: BUBBLE STUDY: DIAGNOSIS: NEW CONGESTIVE HEART FAILURE CARDIAC HISTORY: CATHERIZATION: SURGERY: PROSTHETIC VALVE: PACEMAKER: MEASUREMENTS (cm) DIASTOLIC (NORMALS) SYSTOLIC (NORMALS) IVSd 1.2 (0.6-1.2) LA Diam 4.2 (1.9-4.0) LVEF 59% LVIDd 3.6 (3.5-5.7) LVIDs 2.5 (2.0-3.5) %FS 31% LVPWd 1.2 (0.6-1.2) Ao Diam 2.7 (2.0-3.7) 2 DIMENSIONAL ASSESSMENT: RIGHT ATRIUM: NORMAL LEFT ATRIUM: ENLARGED RIGHT VENTRICLE: NORMAL LEFT VENTRICLE: NORMAL TRICUSPID VALVE: MODERATE TO SEVERE TRICUSPID REGURGITATION MITRAL VALVE: MILD MITRAL REGURGITATION PULMONIC VALVE: MILD PULMONIC INSUFFICIENCY AORTIC VALVE: NORMAL PERICARDIAL EFFUSION: NONE AORTIC ROOT: NORMAL LEFT VENTRICULAR WALL MOTION: NORMAL DOPPLER/COLOR FLOW: SEE BELOW COMMENTS: 1. NORMAL LEFT VENTRICULAR EJECTION FRACTION 55-60% WITH NORMAL WALL MOTION. 2. SEVERE DIASTOLIC DYSFUNCTION WITH ELEVATED FILLING PRESSURE 3. MODERATE TO SEVERE TRICUSPID REGURGITATION 4. MODERATE PULMONARY HYPERTENSION WITH RIGHT VENTRICULAR SYSTOLIC PRESSURE OF 55-60 mmHg 5. LEFT ATRIAL ENLARGEMENT TECHNOLOGIST: IGLESIA BURCH
[2022-06-07] MEDS ORDERED: FUROSEMIDE 40 MG/4 ML VIAL IV SCH (17:00)
[2022-06-07] MEDS: METOPROLOL TAR 25 MG TAB PO SCH (17:09)
--- NOTE | 2022-06-07 19:00 | CON ---
Date of Consultation: 06/07/2022 Reason For Consultation: Acute heart failure. History Of Present Illness: A 77-year-old female with history of hypertension, diabetes, coronary ar jeramie disease, presented with shortness of breath, orthopnea, and lower extremity edema. She was hypo xic on room air at 83%. After proper diuresis, she feels better. No wheezing. No cough or congesti on. Past Medical History: As outlined above in the HPI. Medications: Refer reconciliation sheet for detailed list. Allergies: NO KNOWN DRUG ALLERGIES. Family History: No premature coronary artery disease or cancer. Social History: She is an ex-smoker. Does not drink or use drugs. Review of Systems: All systems reviewed and they were negative except as mentioned in the HPI. Physical Examination: Vital Signs: Showed temperature is 97.7, pulse 72, breathing at 16, blood pressure 145/68, saturatin g 95% on room air. General: Pleasant elderly female, in no apparent distress. Head and Neck: Pupils are equal, reactive to light. Intact eye movements. No JVD. Positive JVD. No cervical lymphadenopathy. Neck: Supple. Thyroid is not enlarged. Lungs: Crackles in both bases with decreased breathing sounds bilaterally. Heart: Irregular. No extra sounds. Abdomen: Soft, nontender. Bowel sounds positive. No organomegaly. No masses or hernia. No rigidi ty or rebound. Extremities: No clubbing or cyanosis. Trace edema. Skin: No rash. Neurologic: Alert, awake, oriented x3. No acute events appreciated. Investigations: BUN 8, creatinine 0.81. NT-proBNP is 1678. The echocardiogram showed a normal ejec tion fraction and normal wall motion. However, she has a severe diastolic dysfunction with elevated filling pressures and right ventricular systolic pressure close to 60 mmHg. On the chest x-ray, CHF picture. Assessment And Recommendations: 1.Acute congestive heart failure exacerbation. On echo, she has significant diastolic dysfunction m ore for restrictive pattern and a filling pressures are elevated. Recommend IV diuresis with Lasix. Carefully monitor BUN, creatinine, electrolytes. She needs better blood pressure control. 2.Hypertension. After proper diuresis, blood pressure needs to be managed to control for systolic b elow 130. Please trend her troponin as well as she has known history of coronary artery disease. 3.History of coronary artery disease. Trend troponin. SR/MODL Voice ID: [id number] Report ID: [id number]
--- NOTE | 2022-06-07 19:22 | RAD REPORT ---
EXAM DESCRIPTION: RAD - Chest Single View - 06/07/2022 12:44 am CLINICAL HISTORY: 77 years Female SOB COMPARISON: None TECHNIQUE: AP view of the chest was obtained. FINDINGS: Cardiac silhouette is enlarged. Central vessels are mildly increased. Small bilateral pleural effusions. Increased interstitial findings mid and lower lungs bilaterally. M ild airspace opacities lower lungs bilaterally. IMPRESSION: Enlarged heart with mild congestive heart failure. Infiltrate and pulmonary congestion a s well as atelectatic change mid and lower lungs bilaterally. Underlying chronic changes. Electronically signed by: Ai Pascal MD 06/07/2022 1:01 AM [employer]OTTON FARMER Due to temporary technical issues with the PACS/Fluency reporting system, reports are being signed by the in house radiologists without review as a courtesy to insure prompt reporting. The interpreting radiologist is fully responsible for the content of the report.
[2022-06-07] MEDS ORDERED: TRAZODONE 50 MG TABLET PO PRN (19:47)
[2022-06-07] MEDS: AMLODIPINE 5 MG TAB PO SCH (20:06)
[2022-06-08 05:32] VITALS: BMI 21.4
[2022-06-08] MEDS: METOPROLOL TAR 25 MG TAB PO SCH (05:32)
[2022-06-08 06:44] LABS: Absolute Lymphocytes (CBC) 1.9 K/uL (0.7-4.9); Hematocrit 33.1 % (36.0-45.0); Lymphocytes % 15.8 % (15.3-44.8); MCV 84.3 fL (80-100); MPV 8.7 fL (7.6-11.3); RBC Red Blood Cell Count 3.93 M/uL (3.86-4.86)
[2022-06-08 07:00] LABS: Potassium 3.9 mmol/L (3.5-5.1)
[2022-06-08 07:01] LABS: Albumin 3.6 g/dL (3.4-5.0); Bilirubin Total 0.6 mg/dL (0.2-1.0); Magnesium 2.1 mg/dL (1.6-2.4); Protein, Total 7.1 g/dL (6.4-8.2)
[2022-06-08] MEDS: INSULIN -REGULAR HUMAN 50 UNIT/0.5 ML ML SQ SCH (07:30)
[2022-06-08] MEDS: AMLODIPINE 5 MG TAB PO SCH (08:59)
[2022-06-08] MEDS ORDERED: FUROSEMIDE 40 MG/4 ML VIAL IV SCH (09:00)
[2022-06-08] MEDS: ENOXAPARIN 40 MG/0.4 ML SQ SCH (09:00)
[2022-06-08] MEDS ORDERED: POTASSIUM CL SA 10 MEQ TAB PO ONE (09:00)
--- NOTE | 2022-06-08 09:16 | RAD REPORT ---
EXAM DESCRIPTION: Nickolas Single View06/08/2022 7:02 am CLINICAL HISTORY: Shortness of breath COMPARISON: June 07, 2022 FINDINGS: Mild bilateral pulmonary opacities partially resolved Heart is mildly enlarged IMPRESSION: Partial resolution in mild bilateral pulmonary opacities
[2022-06-08] MEDS ORDERED: LOSARTAN POTASSIUM 50 MG TABLET PO ONE (11:00)
[2022-06-08 11:08] VITALS: O2SAT 94
[2022-06-08 11:10] VITALS: BP 158/71; TEMP 98.5
[2022-06-08] MEDS ORDERED: ALBUTEROL 2.5 MG/3 ML NEB SOL NEB PRN (12:00)
--- NOTE | 2022-06-12 14:05 | EKG ---
Test Date: 2022-06-07 Test Time: 00:28:09 Hat Renovator: PRISCILA MEASUREMENT RESULTS: Intervals: Rate: 79 TX: 120 QRSD: 82 QT: 422 QTc: 483 [place]: P: 90 TX: 120 QRS: 57 T: 78 INTERPRETIVE STATEMENTS: Normal sinus rhythm Nonspecific ST and T wave abnormality Prolonged QT Abnormal ECG Compared to ECG 06/08/2021 13:09:06 ST (T wave) deviation now present Prolonged QT interval now present Sinus arrhythmia no longer present Myocardial infarct finding no longer present Electronically Signed On 06-12-22 14:01:56 SUMMER NANNY by Law Tarango
== END 2022-06-08 11:55 | disposition home or self-care (01) | DRG 291 ==
LOC: ER 21:52 → ERHOLD 06-07 01:57 → 2ND 06-07 12:41 → OBSVTOIN 06-07 16:17
PROVIDERS: ADMIT Hospitalist; ATTEND Hospitalist
DX: I11.0 Hypertensive heart disease with heart failure (principal); I50.31 Acute diastolic (congestive) heart failure; I25.10 Atherosclerotic heart disease of native coronary artery without angina pectoris; E11.65 Type 2 diabetes mellitus with hyperglycemia; R09.02 Hypoxemia; Z95.5 Presence of coronary angioplasty implant and graft; Z87.891 Personal history of nicotine dependence; Z79.84 Long term (current) use of oral hypoglycemic drugs; Z79.899 Other long term (current) drug therapy; Z90.710 Acquired absence of both cervix and uterus; Z20.822 Contact with and (suspected) exposure to COVID-19; Z82.49 Family history of ischemic heart disease and other diseases of the circulatory system; Z83.3 Family history of diabetes mellitus; Z82.0 Family history of epilepsy and other diseases of the nervous system
CPT/HCPCS: 36415; 71045; 71046; 80048; 80053; 80061; 82947; 83735; 83880; 84484; 85025; 87811; 93005; 93306; 94760; 96372; 96374; 97116; 97161; 97530; 99285; J1650; J1940; J2920; J7613; J7644

== ENCOUNTER → 2023-07-14 | Emergency (ER) | payer OTHER ==
[~2023-07-14] MED LIST: KETAMINE HCL IN 0.9 % NACL 50 MG/5 ML SYRINGE IV ONE; MORPHINE 2 MG/ML SYR ONE; NA CHLORIDE 0.9% 1,000 ML ONE
--- OUTSIDE RECORDS SUMMARY | 2023-07-14 10:15 | XMS REPORT | Continuity of Care Document ---
Author Name Unknown Address [address] [facility] [address] [place] [address] [facility] Address [address] [facility] [address] [place] [address] Care Team Providers Care Commodity Supervisor Name Role Phone Chantel Chung MD Primary Care Physician Svetlana Collins Attending Clinician Unavailable Shasta Arredondo Attending Clinician Unavailable Ady Ventura Attending Clinician UnavailLaurie Torres Attending Clinician Unavailable Brittany Joshi Attending Clinician Chantel Chung MD Attending Clinician Doctor Unassigned, [place] Attending Clinician U CHANTEL Villarreal Attending Clinician Gladys zepeda Pob, [facility] Attending Clinician Skinny Ng Attending Clinician Alejandro Reyes Attending Clinician [phone] Ady Ventura Admitting Clinician Skinny Ng Admitting Clinician Laurie Issa Admitting Clinician Unavailable Payers Payer Name Policy Type Policy Number Effective Date Expirati on Date Source [place] [address] [id number] 2020 00:00:00 [facility] Problems Condition Name Condition Details Condition Category Status Onset Date Resolution Date Last Treatment Date Treating Clinician Comments Source Hypertensi on Hypertensi on Disease Active [facility] Hyperlipid emia Hyperlipid emia Disease Active [facility] Diabetes mellitus Diabetes mellitus Disease Active [facility] [id number] Primary insomnia Problem [facility] [id number] Closed displaced comminuted fracture of left patella with routine healing, subsequent encounter Problem [facility] Seasonal allergy Seasonal allergies Problem [facility] Sinusitis Sinusitis Problem Comm on [facility] [id number] Pain, joint, knee, left Problem [facility] [id number] Primary osteoarthr itis of right hip Problem [facility] [id number] Mixed hyperlipid emia Problem [facility] Long-term current use of anticoagul ant Anticoagul ated Problem [facility] Vitamin D deficiency Vitamin D deficiency Problem [facility] Atrial fibrillati on Atrial fibrillati on Problem [facility] [id number] Anxiety with depression Problem [facility] 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 Atheroscle rosis of coronary artery of [place] heart Problem [facility] [id number] Macular degenerati on of left eye, unspecifie d type Problem [facility] [id number] Type 2 diabetes mellitus with diabetic neuropathy , without long-term current use of insulin Problem [facility] Essential hypertensi on Benign essential HTN Problem [facility] [id number] Senile cataract of right eye, unspecifie d age-relate d cataract type Problem [facility] [id number] Type 2 diabetes mellitus with diabetic neuropathy , unspecifie d whether skilled nursing insulin use Problem [facility] [id number] Acquired hypothyroi dism Problem [facility] [id number] Primary osteoarthr itis of left hip Problem [facility] [id number] Ulcer of toe of right foot, unspecifie d ulcer stage Problem [facility] Allergies, Adverse Reactions, Alerts Allergy Name Allergy Type Status Severity Reaction(s) Onset Date Inactive Date Treating Clinician Comments Source No Known Allergie s DA Active U 6-16 00:00: 00 [facility] No Known Allergie s DA Active U 6-15 00:00: 00 [facility] No Known Allergie s DA Active U 6-14 00:00: 00 [facility] No Known Allergie s DA Active U 4-30 00:00: 00 [facility] No Known Allergie s DA Active U 1-18 00:00: 00 [facility] NO KNOWN ALLERGIE S Drug Class Active [facility] Social History Social Habit Start Date Stop Date Quantity Comments Source History SDOH Alcohol [facility] History SDOH Alcohol Binge [facility] Exposure to SARS-CoV-2 (event) Unable to assess [facility] History of Tobacco Use [facility] Sex Assigned At [facility] Alcohol intake 2020-01-31 00:00:00 2020-01-31 00:00:00 Ex-drinker (finding) [facility] Cigarettes smoked current (pack per day) - Reported 2020-01-31 00:00:00 2020-01-31 00:00:00 [facility] Tobacco use and exposure 2020-01-31 00:00:00 2020-01-31 00:00:00 Never used [facility] History SDOH Alcohol Frequency 2019-06-03 00:00:00 2019-06-03 00:00:00 1 [facility] Smoking Status Start Date Stop Date Source Former Smoker 2023-06-04 00:00:00 2023-06-04 00:00:00 [facility] Never smoker [facility] Medications Ordered Medication Name Filled Medication Name Start Date Stop Date Current Medication? Ordering Clinician Indication Dosage Frequency Signature (SIG) Comments Components Source traZODone HCl 150 MG traZODone HCl 150 MG 2021-06 00:00: 00 No 1{table t_at_be dtime} QD traZODone HCl 150 MG Venlafaxine HCl ER 150 MG Venlafaxine HCl ER 150 MG 2021-06 00:00: 00 No 1{capsu le_with _food} QD Venlafaxin e HCl ER 150 MG Ultracet 37.5-325 MG Ultracet 37.5-325 MG 2021-- 00:00: 00 No 2{table ts_as_n eeded} QID Ultracet 37.5-325 MG Ultracet 37.5-325 MG Ultracet 37.5-325 MG 2021-0 - 00:00: 00 No 2{table ts_as_n eeded} QID Ultracet 37.5-325 MG Ultracet 37.5-325 MG Ultracet 37.5-325 MG 2021-0 - 00:00: 00 No 2{table ts_as_n eeded} QID Ultracet 37.5-325 MG Ultracet 37.5-325 MG Ultracet 37.5-325 MG 2021-0 - 00:00: 00 No 2{table ts_as_n eeded} QID Ultracet 37.5-325 MG Ultracet 37.5-325 MG Ultracet 37.5-325 MG 2021-0 - 00:00: 00 No 2{table ts_as_n eeded} QID Ultracet 37.5-325 MG Ultracet 37.5-325 MG Ultracet 37.5-325 MG 2021-0 - 00:00: 00 No 2{table ts_as_n eeded} QID Ultracet 37.5-325 MG Ultracet 37.5-325 MG Ultracet 37.5-325 MG 2-0 1-19 00:00: 00 No 2{table ts_as_n eeded} QID Ultracet 37.5-325 MG Ultracet 37.5-325 MG Ultracet 37.5-325 MG 2-0 1-19 00:00: 00 No 2{table ts_as_n eeded} QID Ultracet 37.5-325 MG Ultracet 37.5-325 MG Ultracet 37.5-325 MG 2-0 1- 00:00: 00 No 2{table ts_as_n eeded} QID Ultracet 37.5-325 MG Ultracet 37.5-325 MG Ultracet 37.5-325 MG 2-0 1- 00:00: 00 No 2{table ts_as_n eeded} QID Ultracet 37.5-325 MG Ultracet 37.5-325 MG Ultracet 37.5-325 MG 2021-0 1- 00:00: 00 No 2{table ts_as_n eeded} QID Ultracet 37.5-325 MG Ultracet 37.5-325 MG Ultracet 37.5-325 MG 2021-0 1- 00:00: 00 No 2{table ts_as_n eeded} QID Ultracet 37.5-325 MG HYDROcodone -Acetaminop hen 5-325 MG HYDROcodone -Acetaminop hen 5-325 MG 2021-0 - 00:00: 00 07-02 00:00 :00 No QID HYDROcodon e-Acetamin ophen 5-325 MG HYDROcodone -Acetaminop hen 5-325 MG HYDROcodone -Acetaminop hen 5-325 MG 2020-06 2- 00:00: 00 No 1{table t_as_ne eded} HYDROcodon e-Acetamin ophen 5-325 MG HYDROcodone -Acetaminop hen 5-325 MG HYDROcodone -Acetaminop hen 5-325 MG 2020-06 2- 00:00: 00 No 1{table t_as_ne eded} HYDROcodon e-Acetamin ophen 5-325 MG Levothyroxi ne Sodium 75 MCG Levothyroxi ne Sodium 75 MCG 2020-06 2- 00:00: 00 No QD Levothyrox ine Sodium 75 MCG Levothyroxi ne Sodium 75 MCG Levothyroxi ne Sodium 75 MCG 2020-06 2- 00:00: 00 No QD Levothyrox ine Sodium 75 MCG Levothyroxi ne Sodium 75 MCG Levothyroxi ne Sodium 75 MCG 2020-06 2- 00:00: 00 No QD Levothyrox ine Sodium 75 MCG Levothyroxi ne Sodium 75 MCG Levothyroxi ne Sodium 75 MCG 2020-06 2- 00:00: 00 No QD Levothyrox ine Sodium 75 MCG VENLAFAXINE XR 37.5 mg 24 hr capsule 08-01 00:00: 00 Yes [id number] 37.5mg TAKE 1 CAPSULE BY MOUTH DAILY WITH BREAKFAST. [facility] VENLAFAXINE XR 37.5 mg 24 hr capsule 2019-06 1- 00:00: 00 Yes [id number] 37.5mg TAKE 1 CAPSULE BY MOUTH DAILY WITH BREAKFAST. [facility] levothyroxi ne 88 mcg tablet 2019-0 -14 00:00: 00 Yes [id number] 88ug Take 1 tablet by mouth every morning. [facility] levothyroxi ne 88 mcg tablet 2019-0 -14 00:00: 00 Yes [id number] 88ug Take 1 tablet by mouth every morning. [facility] levothyroxi ne 88 mcg tablet 2019-0 -14 00:00: 00 Yes [id number] 88ug Take 1 tablet by mouth every morning. [facility] levothyroxi ne 88 mcg tablet 2019-0 -14 00:00: 00 Yes [id number] 88ug Take 1 tablet by mouth every morning. [facility] levothyroxi ne 88 mcg tablet 2019-0 8-14 00:00: 00 Yes [id number] 88ug Take 1 tablet by mouth every morning. [facility] levothyroxi ne 88 mcg tablet 2019-0 8-14 00:00: 00 Yes [id number] 88ug Take 1 tablet by mouth every morning. [facility] levothyroxi ne 88 mcg tablet 2019-0 8-14 00:00: 00 Yes [id number] 88ug Take 1 tablet by mouth every morning. [facility] metFORMIN 1,000 mg tablet 2020-0 8-10 16:04: 26 Yes 1000mg Take 1,000 mg by mouth 2 (two) times daily with meals. [facility] metFORMIN 1,000 mg tablet 2020-0 8-10 16:04: 26 Yes 1000mg Take 1,000 mg by mouth 2 (two) times daily with meals. [facility] metFORMIN 1,000 mg tablet 2020-0 8-10 16:04: 26 Yes 1000mg Take 1,000 mg by mouth 2 (two) times daily with meals. [facility] metFORMIN 1,000 mg tablet 2020-0 8-10 16:04: 26 Yes 1000mg Take 1,000 mg by mouth 2 (two) times daily with meals. [facility] metFORMIN 1,000 mg tablet 2020-0 8-10 16:04: 26 Yes 1000mg Take 1,000 mg by mouth 2 (two) times daily with meals. [facility] metFORMIN 1,000 mg tablet 2019-0 8-10 16:04: 26 Yes 1000mg Take 1,000 mg by mouth 2 (two) times daily with meals. [facility] metFORMIN 1,000 mg tablet 2019-0 8-10 16:04: 26 Yes 1000mg Take 1,000 mg by mouth 2 (two) times daily with meals. [facility] metFORMIN 1,000 mg tablet 2020-0 8-10 16:04: 26 Yes 1000mg Take 1,000 mg by mouth 2 (two) times daily with meals. [facility] metFORMIN 1,000 mg tablet 2020-0 8-10 16:04: 26 Yes 1000mg Take 1,000 mg by mouth 2 (two) times daily with meals. [facility] metFORMIN 1,000 mg tablet 2020-0 8-10 16:04: 26 Yes 1000mg Take 1,000 mg by mouth 2 (two) times daily with meals. [facility] carvediloL 12.5 mg tablet 2020-0 8-10 15:53: 33 Yes 12.5mg Take 12.5 mg by mouth 2 (two) times daily with meals. [facility] carvediloL 12.5 mg tablet 2020-0 8-10 15:53: 33 Yes 12.5mg Take 12.5 mg by mouth 2 (two) times daily with meals. [facility] carvediloL 12.5 mg tablet 2020-0 8-10 15:53: 33 Yes 12.5mg Take 12.5 mg by mouth 2 (two) times daily with meals. [facility] carvediloL 12.5 mg tablet 2020-0 8-10 15:53: 33 Yes 12.5mg Take 12.5 mg by mouth 2 (two) times daily with meals. [facility] carvediloL 12.5 mg tablet 2020-0 8-10 15:53: 33 Yes 12.5mg Take 12.5 mg by mouth 2 (two) times daily with meals. [facility] carvediloL 12.5 mg tablet 2020-0 8-10 15:53: 33 Yes 12.5mg Take 12.5 mg by mouth 2 (two) times daily with meals. [facility] carvediloL 12.5 mg tablet 2019-0 810 15:53: 33 Yes 12.5mg Take 12.5 mg by mouth 2 (two) times daily with meals. [facility] carvediloL 12.5 mg tablet 2019-0 8-10 15:53: 33 Yes 12.5mg Take 12.5 mg by mouth 2 (two) times daily with meals. [facility] carvediloL 12.5 mg tablet 2019-0 8-10 15:53: 33 Yes 12.5mg Take 12.5 mg by mouth 2 (two) times daily with meals. [facility] carvediloL 12.5 mg tablet 2020-0 8-10 15:53: 33 Yes 12.5mg Take 12.5 mg by mouth 2 (two) times daily with meals. [facility] metFORMIN 1,000 mg tablet 2019-0 8-10 11:04: 26 Yes 1000mg Take 1,000 mg by mouth 2 (two) times daily with meals. [facility] carvediloL 12.5 mg tablet 2020-0 8-10 10:53: 33 Yes 12.5mg Take 12.5 mg by mouth 2 (two) times daily with meals. [facility] venlafaxine XR 37.5 mg 24 hr capsule 2020-0 8-10 00:00: 00 Yes [id number] 37.5mg Take 1 capsule by mouth daily with breakfast. [facility] venlafaxine XR 37.5 mg 24 hr capsule 2020-0 8-10 00:00: 00 Yes [id number] 37.5mg Take 1 capsule by mouth daily with breakfast. [facility] 37.5 mg 24 hr capsule 2020-0 8-10 00:00: 00 Yes [id number] 37.5mg Take 1 capsule by mouth daily with breakfast. [facility] venlafaxine XR 37.5 mg 24 hr capsule 2020-0 8-10 00:00: 00 Yes [id number] 37.5mg Take 1 capsule by mouth daily with breakfast. [facility] venlafaxine XR 37.5 mg 24 hr capsule 2020-0 8-10 00:00: 00 Yes [id number] 37.5mg Take 1 capsule by mouth daily with breakfast. [facility] venlafaxine XR 37.5 mg 24 hr capsule 2019-0 8-10 00:00: 00 Yes [id number] 37.5mg Take 1 capsule by mouth daily with breakfast. [facility] venlafaxine XR 37.5 mg 24 hr capsule 2020-0 8-10 00:00: 00 Yes [id number] 37.5mg Take 1 capsule by mouth daily with breakfast. [facility] venlafaxine XR 37.5 mg 24 hr capsule 2019-0 8-10 00:00: 00 Yes [id number] 37.5mg Take 1 capsule by mouth daily with breakfast. [facility] venlafaxine XR 37.5 mg 24 hr capsule 2019-0 8-10 00:00: 00 04-28 00:00 :00 No [id number] 37.5mg Take 1 capsule by mouth daily with breakfast. [facility] mupirocin 2 % ointment 2018-06 00:00: 00 Yes [facility] mupirocin 2 % ointment 2018-06 00:00: 00 Yes [facility] mupirocin 2 % ointment 2018-06 00:00: 00 Yes [facility] mupirocin 2 % ointment 2018-06 00:00: 00 Yes [facility] mupirocin 2 % ointment 2018-06 00:00: 00 Yes [facility] mupirocin 2 % ointment 2018-06 00:00: 00 Yes [facility] mupirocin 2 % ointment 2018-06 00:00: 00 Yes [facility] mupirocin 2 % ointment 2018-06 00:00: 00 Yes [facility] mupirocin 2 % ointment 2018-06 00:00: 00 Yes [facility] mupirocin 2 % ointment 2018-06 00:00: 00 Yes [facility] mupirocin 2 % ointment 2018-06 00:00: 00 Yes [facility] mupirocin 2 % ointment 2018-06 00:00: 00 Yes [facility] mupirocin 2 % ointment 2018-06 00:00: 00 Yes [facility] mupirocin 2 % ointment 2018-06 00:00: 00 Yes [facility] mupirocin 2 % ointment 2018-06 00:00: 00 Yes [facility] mupirocin 2 % ointment 2018-06 00:00: 00 Yes [facility] mupirocin 2 % ointment 2018-06 00:00: 00 Yes [facility] mupirocin 2 % ointment 2018-06 00:00: 00 Yes [facility] mupirocin 2 % ointment 2018-06 00:00: 00 Yes [facility] XARELTO 20 mg tablet 2018-06 00:00: 00 Yes TK 1 T PO ONCE DAILY WF [facility] XARELTO 20 mg tablet 2018-06 00:00: 00 Yes TK 1 T PO ONCE DAILY WF [facility] XARELTO 20 mg tablet 2018-06 00:00: 00 Yes TK 1 T PO ONCE DAILY WF [facility] XARELTO 20 mg tablet 2018-06 00:00: 00 Yes TK 1 T PO ONCE DAILY WF [facility] XARELTO 20 mg tablet 2018-06 00:00: 00 Yes TK 1 T PO ONCE DAILY WF [facility] XARELTO 20 mg tablet 2018-06 00:00: 00 Yes TK 1 T PO ONCE DAILY WF [facility] XARELTO 20 mg tablet 2018-06 00:00: 00 Yes TK 1 T PO ONCE DAILY WF [facility] XARELTO 20 mg tablet 2018-06 00:00: 00 Yes TK 1 T PO ONCE DAILY WF [facility] XARELTO 20 mg tablet 2018-06 00:00: 00 Yes TK 1 T PO ONCE DAILY WF [facility] XARELTO 20 mg tablet 2018-06 00:00: 00 Yes TK 1 T PO ONCE DAILY WF [facility] XARELTO 20 mg tablet 2018-06 00:00: 00 Yes TK 1 T PO ONCE DAILY WF [facility] XARELTO 20 mg tablet 2018-06 00:00: 00 Yes TK 1 T PO ONCE DAILY WF [facility] XARELTO 20 mg tablet 2018-06 00:00: 00 Yes TK 1 T PO ONCE DAILY WF [facility] XARELTO 20 mg tablet 2018-06 00:00: 00 Yes TK 1 T PO ONCE DAILY WF [facility] XARELTO 20 mg tablet 2018-06 00:00: 00 Yes TK 1 T PO ONCE DAILY WF [facility] XARELTO 20 mg tablet 2018-06 00:00: 00 Yes TK 1 T PO ONCE DAILY WF [facility] XARELTO 20 mg tablet 2018-06 00:00: 00 Yes TK 1 T PO ONCE DAILY WF [facility] XARELTO 20 mg tablet 2018-06 00:00: 00 Yes TK 1 T PO ONCE DAILY WF [facility] XARELTO 20 mg tablet 2018-06 00:00: 00 Yes TK 1 T PO ONCE DAILY WF [facility] levothyroxi ne 88 mcg tablet 2018-06 00:00: 00 Yes TK 1 T PO QAM IN THE MORNING OES [facility] simvastatin 40 mg tablet 2018-06 00:00: 00 Yes TK 1 T PO QHS [facility] levothyroxi ne 88 mcg tablet 2018-06 00:00: 00 Yes TK 1 T PO QAM IN THE MORNING OES [facility] simvastatin 40 mg tablet 2018-06 00:00: 00 Yes TK 1 T PO QHS [facility] simvastatin 40 mg tablet 2018-06 00:00: 00 Yes TK 1 T PO QHS [facility] levothyroxi ne 88 mcg tablet 2018-06 00:00: 00 Yes TK 1 T PO QAM IN THE MORNING OES [facility] simvastatin 40 mg tablet 2018-06 00:00: 00 Yes TK 1 T PO QHS [facility] simvastatin 40 mg tablet 2018-06 00:00: 00 Yes TK 1 T PO QHS [facility] simvastatin 40 mg tablet 2018-06 00:00: 00 Yes TK 1 T PO QHS [facility] levothyroxi ne 88 mcg tablet 2018-06 00:00: 00 Yes TK 1 T PO QAM IN THE MORNING OES [facility] simvastatin 40 mg tablet 2018-06 00:00: 00 Yes TK 1 T PO QHS [facility] simvastatin 40 mg tablet 2018-06 00:00: 00 Yes TK 1 T PO QHS [facility] simvastatin 40 mg tablet 2018-06 00:00: 00 Yes TK 1 T PO QHS [facility] simvastatin 40 mg tablet 2018-06 00:00: 00 Yes TK 1 T PO QHS [facility] simvastatin 40 mg tablet 2018-06 00:00: 00 Yes TK 1 T PO QHS [facility] simvastatin 40 mg tablet 2018-06 00:00: 00 Yes TK 1 T PO QHS [facility] levothyroxi ne 88 mcg tablet 2018-06 00:00: 00 Yes TK 1 T PO QAM IN THE MORNING OES [facility] simvastatin 40 mg tablet 2018-06 00:00: 00 Yes TK 1 T PO QHS [facility] levothyroxi ne 88 mcg tablet 2018-06 00:00: 00 Yes TK 1 T PO QAM IN THE MORNING OES [facility] simvastatin 40 mg tablet 2018-06 00:00: 00 Yes TK 1 T PO QHS [facility] levothyroxi ne 88 mcg tablet 2018-06 00:00: 00 Yes TK 1 T PO QAM IN THE MORNING OES [facility] simvastatin 40 mg tablet 2018-06 00:00: 00 Yes TK 1 T PO QHS [facility] levothyroxi ne 88 mcg tablet 2018-06 00:00: 00 Yes TK 1 T PO QAM IN THE MORNING OES [facility] simvastatin 40 mg tablet 2018-06 00:00: 00 Yes TK 1 T PO QHS [facility] levothyroxi ne 88 mcg tablet 2018-06 00:00: 00 Yes TK 1 T PO QAM IN THE MORNING OES [facility] simvastatin 40 mg tablet 2018-06 00:00: 00 Yes TK 1 T PO QHS [facility] levothyroxi ne 88 mcg tablet 2018-06 00:00: 00 Yes TK 1 T PO QAM IN THE MORNING OES [facility] simvastatin 40 mg tablet 2018-06 00:00: 00 Yes TK 1 T PO QHS [facility] levothyroxi ne 88 mcg tablet 2018-06 00:00: 00 Yes TK 1 T PO QAM IN THE MORNING OES [facility] levothyroxi ne 88 mcg tablet 2018-06 00:00: 00 Yes TK 1 T PO QAM IN THE MORNING OES [facility] simvastatin 40 mg tablet 2018-06 00:00: 00 Yes TK 1 T PO QHS [facility] Simvastatin 40 MG Simvastatin 40 MG 2018-06 00:00: 00 No Simvastati n 40 MG levothyroxi ne 88 mcg tablet 2018-06 00:00: 00 02-03 00:00 :00 No TK 1 T PO QAM IN THE MORNING OES [facility] losartan 100 mg tablet 2018-06 00:00: 00 Yes TK 1 T PO Q D [facility] losartan 100 mg tablet 2018-06 0 00:00: 00 Yes TK 1 T PO Q D [facility] losartan 100 mg tablet 2018-06 00:00: 00 Yes TK 1 T PO Q D [facility] losartan 100 mg tablet 2018-06 0 00:00: 00 Yes TK 1 T PO Q D [facility] losartan 100 mg tablet 2018-06 0 00:00: 00 Yes TK 1 T PO Q D [facility] losartan 100 mg tablet 2018-06 0 00:00: 00 Yes TK 1 T PO Q D [facility] losartan 100 mg tablet 2018-06 0 00:00: 00 Yes TK 1 T PO Q D [facility] losartan 100 mg tablet 2018-06 0 00:00: 00 Yes TK 1 T PO Q D [facility] losartan 100 mg tablet 2018-06 0 00:00: 00 Yes TK 1 T PO Q D [facility] losartan 100 mg tablet 2018-06 0 00:00: 00 Yes TK 1 T PO Q D [facility] losartan 100 mg tablet 2018-06 0 00:00: 00 Yes TK 1 T PO Q D [facility] losartan 100 mg tablet 2018-06 0 00:00: 00 Yes TK 1 T PO Q D [facility] losartan 100 mg tablet 2018-06 010 00:00: 00 Yes TK 1 T PO Q D [facility] losartan 100 mg tablet 2018-06 0 00:00: 00 Yes TK 1 T PO Q D [facility] losartan 100 mg tablet 2018-06 0 00:00: 00 Yes TK 1 T PO Q D [facility] losartan 100 mg tablet 2018-06 0 00:00: 00 Yes TK 1 T PO Q D [facility] losartan 100 mg tablet 2018-06 0 00:00: 00 Yes TK 1 T PO Q D [facility] losartan 100 mg tablet 2018-06 0 00:00: 00 Yes TK 1 T PO Q D [facility] [place] losartan 100 mg tablet 2018-06 0 00:00: 00 Yes TK 1 T PO Q D [facility] metoprolol succinate XL 100 mg 24 hr tablet 2018-06 0 00:00: 00 Yes TK 1 T PO QD [facility] [place] metoprolol succinate XL 100 mg 24 hr tablet 2018-06 0 00:00: 00 Yes TK 1 T PO QD [facility] [place] metoprolol succinate XL 100 mg 24 hr tablet 2018-06 0 00:00: 00 Yes TK 1 T PO QD [facility] [facility] metoprolol succinate XL 100 mg 24 hr tablet 2018-06 0 00:00: 00 Yes TK 1 T PO QD [facility] metoprolol succinate XL 100 mg 24 hr tablet 2018-06 0 00:00: 00 Yes TK 1 T PO QD [facility] metoprolol succinate XL 100 mg 24 hr tablet 2018-06 002 00:00: 00 Yes TK 1 T PO QD [facility] metoprolol succinate XL 100 mg 24 hr tablet 2018-06 0 00:00: 00 Yes TK 1 T PO QD [facility] metoprolol succinate XL 100 mg 24 hr tablet 2018-06 002 00:00: 00 Yes TK 1 T PO QD [facility] metoprolol succinate XL 100 mg 24 hr tablet 2018-06 002 00:00: 00 Yes TK 1 T PO QD [facility] metoprolol succinate XL 100 mg 24 hr tablet 2018-06 0 00:00: 00 Yes TK 1 T PO QD [facility] metoprolol succinate XL 100 mg 24 hr tablet 2018-06 00:00: 00 Yes TK 1 T PO QD [facility] metoprolol succinate XL 100 mg 24 hr tablet 2018-06 00:00: 00 Yes TK 1 T PO QD [facility] metoprolol succinate XL 100 mg 24 hr tablet 2018-06 00:00: 00 Yes TK 1 T PO QD [facility] metoprolol succinate XL 100 mg 24 hr tablet 2018-06 00:00: 00 Yes TK 1 T PO QD [facility] metoprolol succinate XL 100 mg 24 hr tablet 2018-06 00:00: 00 Yes TK 1 T PO QD [facility] metoprolol succinate XL 100 mg 24 hr tablet 2018-06 00:00: 00 Yes TK 1 T PO QD [facility] metoprolol succinate XL 100 mg 24 hr tablet 2018-06 00:00: 00 Yes TK 1 T PO QD [facility] metoprolol succinate XL 100 mg 24 hr tablet 2018-06 00:00: 00 Yes TK 1 T PO QD [facility] metoprolol succinate XL 100 mg 24 hr tablet 2018-06 00:00: 00 Yes TK 1 T PO QD [facility] metFORMIN HCl 1000 MG metFORMIN HCl 1000 MG No metFORMIN HCl 1000 MG Amiodarone HCl 200 MG Amiodarone HCl 200 MG No 1{table t} QD Amiodarone HCl 200 MG Atenolol 25 MG Atenolol 25 MG No QD Atenolol 25 MG Atorvastati n Calcium 40 MG Atorvastati n Calcium 40 MG No Atorvastat in Calcium 40 MG Venlafaxine HCl ER 75 MG Venlafaxine HCl ER 75 MG No Venlafaxin e HCl ER 75 MG Levothyroxi ne Sodium 88 MCG Levothyroxi ne Sodium 88 MCG No QD Levothyrox ine Sodium 88 MCG Vitamin D3 50,000 IU Vitamin D3 50,000 IU No 1{table t} Vitamin D3 50,000 IU Carvedilol 12.5 MG Carvedilol 12.5 MG No 1{table t_with_ food} QD Carvedilol 12.5 MG glipiZIDE 10 MG glipiZIDE 10 MG No glipiZIDE 10 MG Venlafaxine HCl ER 75 Venlafaxine HCl ER 75 No Venlafaxin e HCl ER 75 Aspir-81 81 MG Aspir-81 81 MG No 1{table t} QD Aspir-81 81 MG Xarelto 20 MG Xarelto 20 MG No Xarelto 20 MG amLODIPine Besylate 5 MG amLODIPine Besylate 5 MG No 1{table t} QD amLODIPine Besylate 5 MG Atorvastati n Calcium 40 MG Atorvastati n Calcium 40 MG No Atorvastat in Calcium 40 MG Xarelto 20 MG Xarelto 20 MG No Xarelto 20 MG Venlafaxine HCl ER 75 Venlafaxine HCl ER 75 No 1{capsu le_with _food} QD Venlafaxin e HCl ER 75 traZODone HCl 50 MG traZODone HCl 50 MG No QD traZODone HCl 50 MG Xarelto 20 MG Xarelto 20 MG No 1{table t_with_ food} QD Xarelto 20 MG amLODIPine Besylate 5 MG amLODIPine Besylate 5 MG No 1{table t} QD amLODIPine Besylate 5 MG metFORMIN HCl 1000 MG metFORMIN HCl 1000 MG No metFORMIN HCl 1000 MG Aspir-81 81 MG Aspir-81 81 MG No 1{table t} QD Aspir-81 81 MG metFORMIN HCl 1000 MG metFORMIN HCl 1000 MG No 1{table t_with_ a_meal} BID metFORMIN HCl 1000 MG Amiodarone HCl 200 MG Amiodarone HCl 200 MG No 1{table t} QD Amiodarone HCl 200 MG Atorvastati n Calcium 40 MG Atorvastati n Calcium 40 MG No 1{table t} QD Atorvastat in Calcium 40 MG Carvedilol 12.5 MG Carvedilol 12.5 MG No 1{table t_with_ food} QD Carvedilol 12.5 MG glipiZIDE 10 MG glipiZIDE 10 MG No glipiZIDE 10 MG glipiZIDE 10 MG glipiZIDE 10 MG No 1{table t_with_ food} BID glipiZIDE 10 MG Atenolol 25 MG Atenolol 25 MG No QD Atenolol 25 MG Atorvastati n Calcium 40 MG Atorvastati n Calcium 40 MG No Atorvastat in Calcium 40 MG Atorvastati n Calcium 40 MG Atorvastati n Calcium 40 MG No 1{table t} QD Atorvastat in Calcium 40 MG Aspir-81 81 MG Aspir-81 81 MG No 1{table t} QD Aspir-81 81 MG Carvedilol 12.5 MG Carvedilol 12.5 MG No 1{table t_with_ food} QD Carvedilol 12.5 MG Venlafaxine HCl ER 75 Venlafaxine HCl ER 75 No 1{capsu le_with _food} QD Venlafaxin e HCl ER 75 metFORMIN HCl 1000 MG metFORMIN HCl 1000 MG No metFORMIN HCl 1000 MG traZODone HCl 50 MG traZODone HCl 50 MG No QD traZODone HCl 50 MG Atenolol 25 MG Atenolol 25 MG No QD Atenolol 25 MG amLODIPine Besylate 5 MG amLODIPine Besylate 5 MG No 1{table t} QD amLODIPine Besylate 5 MG Xarelto 20 MG Xarelto 20 MG No 1{table t_with_ food} QD Xarelto 20 MG Amiodarone HCl 200 MG Amiodarone HCl 200 MG No 1{table t} QD Amiodarone HCl 200 MG Xarelto 20 MG Xarelto 20 MG No Xarelto 20 MG glipiZIDE 10 MG glipiZIDE 10 MG No glipiZIDE 10 MG metFORMIN HCl 1000 MG metFORMIN HCl 1000 MG No 1{table t_with_ a_meal} BID metFORMIN HCl 1000 MG Atorvastati n Calcium 40 MG Atorvastati n Calcium 40 MG No Atorvastat in Calcium 40 MG metFORMIN HCl 1000 MG metFORMIN HCl 1000 MG No 1{table t_with_ a_meal} BID metFORMIN HCl 1000 MG Amiodarone HCl 200 MG Amiodarone HCl 200 MG No 1{table t} QD Amiodarone HCl 200 MG Venlafaxine HCl ER 75 Venlafaxine HCl ER 75 No 1{capsu le_with _food} QD Venlafaxin e HCl ER 75 metFORMIN HCl 1000 MG metFORMIN HCl 1000 MG No metFORMIN HCl 1000 MG Carvedilol 12.5 MG Carvedilol 12.5 MG No 1{table t_with_ food} QD Carvedilol 12.5 MG glipiZIDE 10 MG glipiZIDE 10 MG No glipiZIDE 10 MG Atenolol 25 MG Atenolol 25 MG No QD Atenolol 25 MG Atorvastati n Calcium 40 MG Atorvastati n Calcium 40 MG No 1{table t} QD Atorvastat in Calcium 40 MG Aspir-81 81 MG Aspir-81 81 MG No 1{table t} QD Aspir-81 81 MG Xarelto 20 MG Xarelto 20 MG No Xarelto 20 MG traZODone HCl 50 MG traZODone HCl 50 MG No QD traZODone HCl 50 MG amLODIPine Besylate 5 MG amLODIPine Besylate 5 MG No 1{table t} QD amLODIPine Besylate 5 MG Xarelto 20 MG Xarelto 20 MG No 1{table t_with_ food} QD Xarelto 20 MG Atorvastati n Calcium 40 MG Atorvastati n Calcium 40 MG No Atorvastat in Calcium 40 MG metFORMIN HCl 1000 MG metFORMIN HCl 1000 MG No 1{table t_with_ a_meal} BID metFORMIN HCl 1000 MG Amiodarone HCl 200 MG Amiodarone HCl 200 MG No 1{table t} QD Amiodarone HCl 200 MG Venlafaxine HCl ER 75 Venlafaxine HCl ER 75 No 1{capsu le_with _food} QD Venlafaxin e HCl ER 75 metFORMIN HCl 1000 MG metFORMIN HCl 1000 MG No metFORMIN HCl 1000 MG Carvedilol 12.5 MG Carvedilol 12.5 MG No 1{table t_with_ food} QD Carvedilol 12.5 MG glipiZIDE 10 MG glipiZIDE 10 MG No glipiZIDE 10 MG Atenolol 25 MG Atenolol 25 MG No QD Atenolol 25 MG Atorvastati n Calcium 40 MG Atorvastati n Calcium 40 MG No 1{table t} QD Atorvastat in Calcium 40 MG Aspir-81 81 MG Aspir-81 81 MG No 1{table t} QD Aspir-81 81 MG Xarelto 20 MG Xarelto 20 MG No Xarelto 20 MG traZODone HCl 50 MG traZODone HCl 50 MG No QD traZODone HCl 50 MG amLODIPine Besylate 5 MG amLODIPine Besylate 5 MG No 1{table t} QD amLODIPine Besylate 5 MG Xarelto 20 MG Xarelto 20 MG No 1{table t_with_ food} QD Xarelto 20 MG Amiodarone HCl 200 MG Amiodarone HCl 200 MG No 1{table t} QD Amiodarone HCl 200 MG Venlafaxine HCl ER 75 Venlafaxine HCl ER 75 No 1{capsu le_with _food} QD Venlafaxin e HCl ER 75 Carvedilol 12.5 MG Carvedilol 12.5 MG No 1{table t_with_ food} QD Carvedilol 12.5 MG Xarelto 20 MG Xarelto 20 MG No Xarelto 20 MG Xarelto 20 MG Xarelto 20 MG No 1{table t_with_ food} QD Xarelto 20 MG metFORMIN HCl 1000 MG metFORMIN HCl 1000 MG No 1{table t_with_ a_meal} BID metFORMIN HCl 1000 MG Atorvastati n Calcium 40 MG Atorvastati n Calcium 40 MG No Atorvastat in Calcium 40 MG traZODone HCl 100 MG traZODone HCl 100 MG No QD traZODone HCl 100 MG Atorvastati n Calcium 40 MG Atorvastati n Calcium 40 MG No 1{table t} QD Atorvastat in Calcium 40 MG amLODIPine Besylate 5 MG amLODIPine Besylate 5 MG No 1{table t} QD amLODIPine Besylate 5 MG metFORMIN HCl 1000 MG metFORMIN HCl 1000 MG No metFORMIN HCl 1000 MG Atenolol 25 MG Atenolol 25 MG No QD Atenolol 25 MG glipiZIDE 10 MG glipiZIDE 10 MG No 1{table t_with_ food} BID glipiZIDE 10 MG Aspir-81 81 MG Aspir-81 81 MG No 1{table t} QD Aspir-81 81 MG Levothyroxi ne Sodium 75 MCG Levothyroxi ne Sodium 75 MCG No QD Levothyrox ine Sodium 75 MCG glipiZIDE 10 MG glipiZIDE 10 MG No glipiZIDE 10 MG Venlafaxine HCl ER 75 Venlafaxine HCl ER 75 No 1{capsu le_with _food} QD Venlafaxin e HCl ER 75 Carvedilol 12.5 MG Carvedilol 12.5 MG No 1{table t_with_ food} QD Carvedilol 12.5 MG metFORMIN HCl 1000 MG metFORMIN HCl 1000 MG No 1{table t_with_ a_meal} BID metFORMIN HCl 1000 MG Atorvastati n Calcium 40 MG Atorvastati n Calcium 40 MG No Atorvastat in Calcium 40 MG glipiZIDE 10 MG glipiZIDE 10 MG No glipiZIDE 10 MG Atorvastati n Calcium 40 MG Atorvastati n Calcium 40 MG No 1{table t} QD Atorvastat in Calcium 40 MG Levothyroxi ne Sodium 75 MCG Levothyroxi ne Sodium 75 MCG No QD Levothyrox ine Sodium 75 MCG glipiZIDE 10 MG glipiZIDE 10 MG No 1{table t_with_ food} BID glipiZIDE 10 MG Amiodarone HCl 200 MG Amiodarone HCl 200 MG No 1{table t} QD Amiodarone HCl 200 MG traZODone HCl 100 MG traZODone HCl 100 MG No QD traZODone HCl 100 MG Aspir-81 81 MG Aspir-81 81 MG No 1{table t} QD Aspir-81 81 MG amLODIPine Besylate 5 MG amLODIPine Besylate 5 MG No 1{table t} QD amLODIPine Besylate 5 MG Atenolol 25 MG Atenolol 25 MG No QD Atenolol 25 MG metFORMIN HCl 1000 MG metFORMIN HCl 1000 MG No metFORMIN HCl 1000 MG Xarelto 20 MG Xarelto 20 MG No 1{table t_with_ food} QD Xarelto 20 MG Xarelto 20 MG Xarelto 20 MG No Xarelto 20 MG glipiZIDE 10 MG glipiZIDE 10 MG No glipiZIDE 10 MG Levothyroxi ne Sodium 75 MCG Levothyroxi ne Sodium 75 MCG No QD Levothyrox ine Sodium 75 MCG amLODIPine Besylate 5 MG amLODIPine Besylate 5 MG No 1{table t} QD amLODIPine Besylate 5 MG Amiodarone HCl 200 MG Amiodarone HCl 200 MG No 1{table t} QD Amiodarone HCl 200 MG Aspir-81 81 MG Aspir-81 81 MG No 1{table t} QD Aspir-81 81 MG metFORMIN HCl 1000 MG metFORMIN HCl 1000 MG No 1{table t_with_ a_meal} BID metFORMIN HCl 1000 MG Venlafaxine HCl ER 75 Venlafaxine HCl ER 75 No 1{capsu le_with _food} QD Venlafaxin e HCl ER 75 Atorvastati n Calcium 40 MG Atorvastati n Calcium 40 MG No 1{table t} QD Atorvastat in Calcium 40 MG Xarelto 20 MG Xarelto 20 MG No Xarelto 20 MG glipiZIDE 10 MG glipiZIDE 10 MG No 1{table t_with_ food} BID glipiZIDE 10 MG traZODone HCl 100 MG traZODone HCl 100 MG No QD traZODone HCl 100 MG Xarelto 20 MG Xarelto 20 MG No 1{table t_with_ food} QD Xarelto 20 MG Atorvastati n Calcium 40 MG Atorvastati n Calcium 40 MG No Atorvastat in Calcium 40 MG Carvedilol 12.5 MG Carvedilol 12.5 MG No 1{table t_with_ food} QD Carvedilol 12.5 MG Atenolol 25 MG Atenolol 25 MG No QD Atenolol 25 MG metFORMIN HCl 1000 MG metFORMIN HCl 1000 MG No metFORMIN HCl 1000 MG glipiZIDE 10 MG glipiZIDE 10 MG No glipiZIDE 10 MG Levothyroxi ne Sodium 75 MCG Levothyroxi ne Sodium 75 MCG No QD Levothyrox ine Sodium 75 MCG amLODIPine Besylate 5 MG amLODIPine Besylate 5 MG No 1{table t} QD amLODIPine Besylate 5 MG Amiodarone HCl 200 MG Amiodarone HCl 200 MG No 1{table t} QD Amiodarone HCl 200 MG Aspir-81 81 MG Aspir-81 81 MG No 1{table t} QD Aspir-81 81 MG metFORMIN HCl 1000 MG metFORMIN HCl 1000 MG No 1{table t_with_ a_meal} BID metFORMIN HCl 1000 MG Venlafaxine HCl ER 75 Venlafaxine HCl ER 75 No 1{capsu le_with _food} QD Venlafaxin e HCl ER 75 Atorvastati n Calcium 40 MG Atorvastati n Calcium 40 MG No 1{table t} QD Atorvastat in Calcium 40 MG Xarelto 20 MG Xarelto 20 MG No Xarelto 20 MG glipiZIDE 10 MG glipiZIDE 10 MG No 1{table t_with_ food} BID glipiZIDE 10 MG traZODone HCl 100 MG traZODone HCl 100 MG No QD traZODone HCl 100 MG Xarelto 20 MG Xarelto 20 MG No 1{table t_with_ food} QD Xarelto 20 MG Atorvastati n Calcium 40 MG Atorvastati n Calcium 40 MG No Atorvastat in Calcium 40 MG Carvedilol 12.5 MG Carvedilol 12.5 MG No 1{table t_with_ food} QD Carvedilol 12.5 MG Atenolol 25 MG Atenolol 25 MG No QD Atenolol 25 MG metFORMIN HCl 1000 MG metFORMIN HCl 1000 MG No metFORMIN HCl 1000 MG Venlafaxine HCl ER 75 Venlafaxine HCl ER 75 No 1{capsu le_with _food} QD Venlafaxin e HCl ER 75 traZODone HCl 100 MG traZODone HCl 100 MG No QD traZODone HCl 100 MG Levothyroxi ne Sodium 75 MCG Levothyroxi ne Sodium 75 MCG No QD Levothyrox ine Sodium 75 MCG Aspir-81 81 MG Aspir-81 81 MG No 1{table t} QD Aspir-81 81 MG Amiodarone HCl 200 MG Amiodarone HCl 200 MG No 1{table t} QD Amiodarone HCl 200 MG amLODIPine Besylate 5 MG amLODIPine Besylate 5 MG No 1{table t} QD amLODIPine Besylate 5 MG metFORMIN HCl 1000 MG metFORMIN HCl 1000 MG No 1{table t_with_ a_meal} BID metFORMIN HCl 1000 MG Xarelto 20 MG Xarelto 20 MG No 1{table t_with_ food} QD Xarelto 20 MG glipiZIDE 10 MG glipiZIDE 10 MG No glipiZIDE 10 MG glipiZIDE 10 MG glipiZIDE 10 MG No 1{table t_with_ food} BID glipiZIDE 10 MG Atorvastati n Calcium 40 MG Atorvastati n Calcium 40 MG No 1{table t} QD Atorvastat in Calcium 40 MG metFORMIN HCl 1000 MG metFORMIN HCl 1000 MG No metFORMIN HCl 1000 MG Xarelto 20 MG Xarelto 20 MG No Xarelto 20 MG Carvedilol 12.5 MG Carvedilol 12.5 MG No 1{table t_with_ food} QD Carvedilol 12.5 MG Atenolol 25 MG Atenolol 25 MG No QD Atenolol 25 MG Atorvastati n Calcium 40 MG Atorvastati n Calcium 40 MG No Atorvastat in Calcium 40 MG Venlafaxine HCl ER 75 Venlafaxine HCl ER 75 No 1{capsu le_with _food} QD Venlafaxin e HCl ER 75 traZODone HCl 100 MG traZODone HCl 100 MG No QD traZODone HCl 100 MG Levothyroxi ne Sodium 75 MCG Levothyroxi ne Sodium 75 MCG No QD Levothyrox ine Sodium 75 MCG Aspir-81 81 MG Aspir-81 81 MG No 1{table t} QD Aspir-81 81 MG Amiodarone HCl 200 MG Amiodarone HCl 200 MG No 1{table t} QD Amiodarone HCl 200 MG amLODIPine Besylate 5 MG amLODIPine Besylate 5 MG No 1{table t} QD amLODIPine Besylate 5 MG metFORMIN HCl 1000 MG metFORMIN HCl 1000 MG No 1{table t_with_ a_meal} BID metFORMIN HCl 1000 MG Xarelto 20 MG Xarelto 20 MG No 1{table t_with_ food} QD Xarelto 20 MG glipiZIDE 10 MG glipiZIDE 10 MG No glipiZIDE 10 MG glipiZIDE 10 MG glipiZIDE 10 MG No 1{table t_with_ food} BID glipiZIDE 10 MG Atorvastati n Calcium 40 MG Atorvastati n Calcium 40 MG No 1{table t} QD Atorvastat in Calcium 40 MG metFORMIN HCl 1000 MG metFORMIN HCl 1000 MG No metFORMIN HCl 1000 MG Xarelto 20 MG Xarelto 20 MG No Xarelto 20 MG Carvedilol 12.5 MG Carvedilol 12.5 MG No 1{table t_with_ food} QD Carvedilol 12.5 MG Atenolol 25 MG Atenolol 25 MG No QD Atenolol 25 MG Atorvastati n Calcium 40 MG Atorvastati n Calcium 40 MG No Atorvastat in Calcium 40 MG Aspir-81 81 MG Aspir-81 81 MG No 1{table t} QD Aspir-81 81 MG Venlafaxine HCl ER 75 Venlafaxine HCl ER 75 No 1{capsu le_with _food} QD Venlafaxin e HCl ER 75 glipiZIDE 10 MG glipiZIDE 10 MG No glipiZIDE 10 MG Xarelto 20 MG Xarelto 20 MG No 1{table t_with_ food} QD Xarelto 20 MG glipiZIDE 10 MG glipiZIDE 10 MG No 1{table t_with_ food} BID glipiZIDE 10 MG metFORMIN HCl 1000 MG metFORMIN HCl 1000 MG No 1{table t_with_ a_meal} BID metFORMIN HCl 1000 MG Amiodarone HCl 200 MG Amiodarone HCl 200 MG No 1{table t} QD Amiodarone HCl 200 MG amLODIPine Besylate 5 MG amLODIPine Besylate 5 MG No 1{table t} QD amLODIPine Besylate 5 MG Xarelto 20 MG Xarelto 20 MG No Xarelto 20 MG Atenolol 25 MG Atenolol 25 MG No QD Atenolol 25 MG Atorvastati n Calcium 40 MG Atorvastati n Calcium 40 MG No Atorvastat in Calcium 40 MG Levothyroxi ne Sodium 75 MCG Levothyroxi ne Sodium 75 MCG No QD Levothyrox ine Sodium 75 MCG Atorvastati n Calcium 40 MG Atorvastati n Calcium 40 MG No 1{table t} QD Atorvastat in Calcium 40 MG Carvedilol 12.5 MG Carvedilol 12.5 MG No 1{table t_with_ food} QD Carvedilol 12.5 MG metFORMIN HCl 1000 MG metFORMIN HCl 1000 MG No metFORMIN HCl 1000 MG traZODone HCl 100 MG traZODone HCl 100 MG No QD traZODone HCl 100 MG traZODone HCl 100 MG traZODone HCl 100 MG No QD traZODone HCl 100 MG Xarelto 20 MG Xarelto 20 MG No Xarelto 20 MG Atenolol 25 MG Atenolol 25 MG No QD Atenolol 25 MG amLODIPine Besylate 5 MG amLODIPine Besylate 5 MG No 1{table t} QD amLODIPine Besylate 5 MG metFORMIN HCl 1000 MG metFORMIN HCl 1000 MG No metFORMIN HCl 1000 MG glipiZIDE 10 MG glipiZIDE 10 MG No glipiZIDE 10 MG Amiodarone HCl 200 MG Amiodarone HCl 200 MG No 1{table t} QD Amiodarone HCl 200 MG Carvedilol 12.5 MG Carvedilol 12.5 MG No 1{table t_with_ food} QD Carvedilol 12.5 MG Atorvastati n Calcium 40 MG Atorvastati n Calcium 40 MG No 1{table t} QD Atorvastat in Calcium 40 MG Xarelto 20 MG Xarelto 20 MG No 1{table t_with_ food} QD Xarelto 20 MG Atorvastati n Calcium 40 MG Atorvastati n Calcium 40 MG No Atorvastat in Calcium 40 MG metFORMIN HCl 1000 MG metFORMIN HCl 1000 MG No 1{table t_with_ a_meal} BID metFORMIN HCl 1000 MG Aspir-81 81 MG Aspir-81 81 MG No 1{table t} QD Aspir-81 81 MG Venlafaxine HCl ER 75 Venlafaxine HCl ER 75 No 1{capsu le_with _food} QD Venlafaxin e HCl ER 75 glipiZIDE 10 MG glipiZIDE 10 MG No 1{table t_with_ food} BID glipiZIDE 10 MG Levothyroxi ne Sodium 75 MCG Levothyroxi ne Sodium 75 MCG No QD Levothyrox ine Sodium 75 MCG Levothyroxi ne Sodium 75 MCG Levothyroxi ne Sodium 75 MCG No Levothyrox ine Sodium 75 MCG amLODIPine Besylate 5 MG amLODIPine Besylate 5 MG No 1{table t} QD amLODIPine Besylate 5 MG Atenolol 25 MG Atenolol 25 MG No QD Atenolol 25 MG metFORMIN HCl 1000 MG metFORMIN HCl 1000 MG No metFORMIN HCl 1000 MG glipiZIDE 10 MG glipiZIDE 10 MG No glipiZIDE 10 MG Amiodarone HCl 200 MG Amiodarone HCl 200 MG No 1{table t} QD Amiodarone HCl 200 MG Carvedilol 12.5 MG Carvedilol 12.5 MG No 1{table t_with_ food} QD Carvedilol 12.5 MG Aspir-81 81 MG Aspir-81 81 MG No 1{table t} QD Aspir-81 81 MG Xarelto 20 MG Xarelto 20 MG No 1{table t_with_ food} QD Xarelto 20 MG Venlafaxine HCl ER 75 MG Venlafaxine HCl ER 75 MG No 1{capsu le_with _food} QD Venlafaxin e HCl ER 75 MG metFORMIN HCl 1000 MG metFORMIN HCl 1000 MG No 1{table t_with_ a_meal} BID metFORMIN HCl 1000 MG Xarelto 20 MG Xarelto 20 MG No Xarelto 20 MG Atorvastati n Calcium 40 MG Atorvastati n Calcium 40 MG No Atorvastat in Calcium 40 MG glipiZIDE 10 MG glipiZIDE 10 MG No 1{table t_with_ food} BID glipiZIDE 10 MG traZODone HCl 50 MG traZODone HCl 50 MG No traZODone HCl 50 MG Levothyroxi ne Sodium 75 MCG Levothyroxi ne Sodium 75 MCG No Levothyrox ine Sodium 75 MCG amLODIPine Besylate 5 MG amLODIPine Besylate 5 MG No 1{table t} QD amLODIPine Besylate 5 MG Atenolol 25 MG Atenolol 25 MG No QD Atenolol 25 MG metFORMIN HCl 1000 MG metFORMIN HCl 1000 MG No metFORMIN HCl 1000 MG glipiZIDE 10 MG glipiZIDE 10 MG No glipiZIDE 10 MG Amiodarone HCl 200 MG Amiodarone HCl 200 MG No 1{table t} QD Amiodarone HCl 200 MG Carvedilol 12.5 MG Carvedilol 12.5 MG No 1{table t_with_ food} QD Carvedilol 12.5 MG Aspir-81 81 MG Aspir-81 81 MG No 1{table t} QD Aspir-81 81 MG Xarelto 20 MG Xarelto 20 MG No 1{table t_with_ food} QD Xarelto 20 MG Venlafaxine HCl ER 75 MG Venlafaxine HCl ER 75 MG No 1{capsu le_with _food} QD Venlafaxin e HCl ER 75 MG metFORMIN HCl 1000 MG metFORMIN HCl 1000 MG No 1{table t_with_ a_meal} BID metFORMIN HCl 1000 MG Xarelto 20 MG Xarelto 20 MG No Xarelto 20 MG Atorvastati n Calcium 40 MG Atorvastati n Calcium 40 MG No Atorvastat in Calcium 40 MG glipiZIDE 10 MG glipiZIDE 10 MG No 1{table t_with_ food} BID glipiZIDE 10 MG traZODone HCl 50 MG traZODone HCl 50 MG No traZODone HCl 50 MG Atenolol 25 MG Atenolol 25 MG No QD Atenolol 25 MG Amiodarone HCl 200 MG Amiodarone HCl 200 MG No 1{table t} QD Amiodarone HCl 200 MG glipiZIDE 10 MG glipiZIDE 10 MG No glipiZIDE 10 MG Xarelto 20 MG Xarelto 20 MG No Xarelto 20 MG Venlafaxine HCl ER 75 Venlafaxine HCl ER 75 No 1{capsu le_with _food} QD Venlafaxin e HCl ER 75 Levothyroxi ne Sodium 75 MCG Levothyroxi ne Sodium 75 MCG No QD Levothyrox ine Sodium 75 MCG Aspir-81 81 MG Aspir-81 81 MG No 1{table t} QD Aspir-81 81 MG Venlafaxine HCl ER 75 MG Venlafaxine HCl ER 75 MG No 1{capsu le_with _food} QD Venlafaxin e HCl ER 75 MG traZODone HCl 50 MG traZODone HCl 50 MG No QD traZODone HCl 50 MG metFORMIN HCl 1000 MG metFORMIN HCl 1000 MG No 1{table t_with_ a_meal} BID metFORMIN HCl 1000 MG metFORMIN HCl 1000 MG metFORMIN HCl 1000 MG No metFORMIN HCl 1000 MG glipiZIDE 10 MG glipiZIDE 10 MG No 1{table t_with_ food} BID glipiZIDE 10 MG amLODIPine Besylate 5 MG amLODIPine Besylate 5 MG No 1{table t} QD amLODIPine Besylate 5 MG Levothyroxi ne Sodium 75 MCG Levothyroxi ne Sodium 75 MCG No Levothyrox ine Sodium 75 MCG Carvedilol 12.5 MG Carvedilol 12.5 MG No 1{table t_with_ food} QD Carvedilol 12.5 MG Xarelto 20 MG Xarelto 20 MG No 1{table t_with_ food} QD Xarelto 20 MG traZODone HCl 50 MG traZODone HCl 50 MG No traZODone HCl 50 MG Atorvastati n Calcium 40 MG Atorvastati n Calcium 40 MG No Atorvastat in Calcium 40 MG Atorvastati n Calcium 40 MG Atorvastati n Calcium 40 MG No 1{table t} QD Atorvastat in Calcium 40 MG Atenolol 25 MG Atenolol 25 MG No QD Atenolol 25 MG Amiodarone HCl 200 MG Amiodarone HCl 200 MG No 1{table t} QD Amiodarone HCl 200 MG glipiZIDE 10 MG glipiZIDE 10 MG No glipiZIDE 10 MG Xarelto 20 MG Xarelto 20 MG No Xarelto 20 MG Venlafaxine HCl ER 75 Venlafaxine HCl ER 75 No 1{capsu le_with _food} QD Venlafaxin e HCl ER 75 Levothyroxi ne Sodium 75 MCG Levothyroxi ne Sodium 75 MCG No QD Levothyrox ine Sodium 75 MCG Aspir-81 81 MG Aspir-81 81 MG No 1{table t} QD Aspir-81 81 MG Venlafaxine HCl ER 75 MG Venlafaxine HCl ER 75 MG No 1{capsu le_with _food} QD Venlafaxin e HCl ER 75 MG traZODone HCl 50 MG traZODone HCl 50 MG No QD traZODone HCl 50 MG metFORMIN HCl 1000 MG metFORMIN HCl 1000 MG No 1{table t_with_ a_meal} BID metFORMIN HCl 1000 MG metFORMIN HCl 1000 MG metFORMIN HCl 1000 MG No metFORMIN HCl 1000 MG glipiZIDE 10 MG glipiZIDE 10 MG No 1{table t_with_ food} BID glipiZIDE 10 MG amLODIPine Besylate 5 MG amLODIPine Besylate 5 MG No 1{table t} QD amLODIPine Besylate 5 MG Levothyroxi ne Sodium 75 MCG Levothyroxi ne Sodium 75 MCG No Levothyrox ine Sodium 75 MCG Carvedilol 12.5 MG Carvedilol 12.5 MG No 1{table t_with_ food} QD Carvedilol 12.5 MG Xarelto 20 MG Xarelto 20 MG No 1{table t_with_ food} QD Xarelto 20 MG traZODone HCl 50 MG traZODone HCl 50 MG No traZODone HCl 50 MG Atorvastati n Calcium 40 MG Atorvastati n Calcium 40 MG No Atorvastat in Calcium 40 MG Atorvastati n Calcium 40 MG Atorvastati n Calcium 40 MG No 1{table t} QD Atorvastat in Calcium 40 MG glipiZIDE 10 MG glipiZIDE 10 MG No glipiZIDE 10 MG Atenolol 25 MG Atenolol 25 MG No QD Atenolol 25 MG glipiZIDE 10 MG glipiZIDE 10 MG No 1{table t_with_ food} BID glipiZIDE 10 MG Aspir-81 81 MG Aspir-81 81 MG No 1{table t} QD Aspir-81 81 MG amLODIPine Besylate 5 MG amLODIPine Besylate 5 MG No 1{table t} QD amLODIPine Besylate 5 MG metFORMIN HCl 1000 MG metFORMIN HCl 1000 MG No 1{table t_with_ a_meal} BID metFORMIN HCl 1000 MG Levothyroxi ne Sodium 75 MCG Levothyroxi ne Sodium 75 MCG No QD Levothyrox ine Sodium 75 MCG Xarelto 20 MG Xarelto 20 MG No 1{table t_with_ food} QD Xarelto 20 MG metFORMIN HCl 1000 MG metFORMIN HCl 1000 MG No metFORMIN HCl 1000 MG Atorvastati n Calcium 40 MG Atorvastati n Calcium 40 MG No Atorvastat in Calcium 40 MG Atorvastati n Calcium 40 MG Atorvastati n Calcium 40 MG No 1{table t} QD Atorvastat in Calcium 40 MG Xarelto 20 MG Xarelto 20 MG No Xarelto 20 MG Levothyroxi ne Sodium 75 MCG Levothyroxi ne Sodium 75 MCG No Levothyrox ine Sodium 75 MCG Carvedilol 12.5 MG Carvedilol 12.5 MG No 1{table t_with_ food} QD Carvedilol 12.5 MG Amiodarone HCl 200 MG Amiodarone HCl 200 MG No 1{table t} QD Amiodarone HCl 200 MG Metoprolol Succinate ER 100 MG Metoprolol Succinate ER 100 MG No 1{table t} QD Metoprolol Succinate ER 100 MG Atorvastati n Calcium 40 MG Atorvastati n Calcium 40 MG No Atorvastat in Calcium 40 MG Carvedilol 12.5 MG Carvedilol 12.5 MG No 1{table t_with_ food} QD Carvedilol 12.5 MG glipiZIDE 10 MG glipiZIDE 10 MG No glipiZIDE 10 MG Aspir-81 81 MG Aspir-81 81 MG No 1{table t} QD Aspir-81 81 MG traZODone HCl 150 MG traZODone HCl 150 MG No 1{table t_at_be dtime_a s_neede d} QD traZODone HCl 150 MG Xarelto 20 MG Xarelto 20 MG No 1{table t_with_ food} QD Xarelto 20 MG Levothyroxi ne Sodium 75 MCG Levothyroxi ne Sodium 75 MCG No QD Levothyrox ine Sodium 75 MCG Atorvastati n Calcium 80 MG Atorvastati n Calcium 80 MG No 1{table t} QD Atorvastat in Calcium 80 MG amLODIPine Besylate 5 MG amLODIPine Besylate 5 MG No 1{table t} QD amLODIPine Besylate 5 MG Amiodarone HCl 200 MG Amiodarone HCl 200 MG No .5{tabl et} QD Amiodarone HCl 200 MG Venlafaxine HCl ER 150 MG Venlafaxine HCl ER 150 MG No 1{capsu le_with _food} QD Venlafaxin e HCl ER 150 MG metFORMIN HCl 1000 MG metFORMIN HCl 1000 MG No 1{table t_with_ a_meal} BID metFORMIN HCl 1000 MG Venlafaxine HCl ER 150 MG Venlafaxine HCl ER 150 MG No 1{capsu le_with _food} QD Venlafaxin e HCl ER 150 MG traZODone HCl 150 MG traZODone HCl 150 MG No traZODone HCl 150 MG glipiZIDE 10 MG glipiZIDE 10 MG No 1{table t_with_ food} BID glipiZIDE 10 MG metFORMIN HCl 1000 MG metFORMIN HCl 1000 MG No 1{table t_with_ a_meal} BID metFORMIN HCl 1000 MG Levothyroxi ne Sodium 75 MCG Levothyroxi ne Sodium 75 MCG No QD Levothyrox ine Sodium 75 MCG Metoprolol Succinate ER 100 MG Metoprolol Succinate ER 100 MG No 1{table t} QD Metoprolol Succinate ER 100 MG Levothyroxi ne Sodium 75 MCG Levothyroxi ne Sodium 75 MCG No QD Levothyrox ine Sodium 75 MCG Carvedilol 12.5 MG Carvedilol 12.5 MG No 1{table t_with_ food} QD Carvedilol 12.5 MG Venlafaxine HCl ER 150 MG Venlafaxine HCl ER 150 MG No 1{capsu le_with _food} QD Venlafaxin e HCl ER 150 MG Aspir-81 81 MG Aspir-81 81 MG No 1{table t} QD Aspir-81 81 MG Levothyroxi ne Sodium 75 MCG Levothyroxi ne Sodium 75 MCG No QD Levothyrox ine Sodium 75 MCG Atorvastati n Calcium 80 MG Atorvastati n Calcium 80 MG No 1{table t} QD Atorvastat in Calcium 80 MG Xarelto 20 MG Xarelto 20 MG No 1{table t_with_ food} QD Xarelto 20 MG glipiZIDE 10 MG glipiZIDE 10 MG No 1{table t_with_ food} BID glipiZIDE 10 MG Amiodarone HCl 200 MG Amiodarone HCl 200 MG No .5{tabl et} QD Amiodarone HCl 200 MG glipiZIDE 10 MG glipiZIDE 10 MG No glipiZIDE 10 MG traZODone HCl 150 MG traZODone HCl 150 MG No 1{table t_at_be dtime_a s_neede d} QD traZODone HCl 150 MG traZODone HCl 150 MG traZODone HCl 150 MG No traZODone HCl 150 MG metFORMIN HCl 1000 MG metFORMIN HCl 1000 MG No 1{table t_with_ a_meal} BID metFORMIN HCl 1000 MG amLODIPine Besylate 5 MG amLODIPine Besylate 5 MG No 1{table t} QD amLODIPine Besylate 5 MG Atorvastati n Calcium 40 MG Atorvastati n Calcium 40 MG No Atorvastat in Calcium 40 MG Venlafaxine HCl ER 150 MG Venlafaxine HCl ER 150 MG No 1{capsu le_with _food} QD Venlafaxin e HCl ER 150 MG metFORMIN HCl 1000 MG metFORMIN HCl 1000 MG No 1{table t_with_ a_meal} BID metFORMIN HCl 1000 MG Atorvastati n Calcium 80 MG Atorvastati n Calcium 80 MG No 1{table t} QD Atorvastat in Calcium 80 MG traZODone HCl 150 MG traZODone HCl 150 MG No 1{table t_at_be dtime_a s_neede d} QD traZODone HCl 150 MG Carvedilol 12.5 MG Carvedilol 12.5 MG No 1{table t_with_ food} QD Carvedilol 12.5 MG traZODone HCl 150 MG traZODone HCl 150 MG No traZODone HCl 150 MG Aspir-81 81 MG Aspir-81 81 MG No 1{table t} QD Aspir-81 81 MG Venlafaxine HCl ER 150 MG Venlafaxine HCl ER 150 MG No 1{capsu le_with _food} QD Venlafaxin e HCl ER 150 MG glipiZIDE 10 MG glipiZIDE 10 MG No 1{table t_with_ food} BID glipiZIDE 10 MG metFORMIN HCl 1000 MG metFORMIN HCl 1000 MG No 1{table t_with_ a_meal} BID metFORMIN HCl 1000 MG Xarelto 20 MG Xarelto 20 MG No 1{table t_with_ food} QD Xarelto 20 MG Levothyroxi ne Sodium 75 MCG Levothyroxi ne Sodium 75 MCG No QD Levothyrox ine Sodium 75 MCG metFORMIN HCl 1000 MG metFORMIN HCl 1000 MG No 1{table t_with_ a_meal} BID metFORMIN HCl 1000 MG glipiZIDE 10 MG glipiZIDE 10 MG No glipiZIDE 10 MG Levothyroxi ne Sodium 75 MCG Levothyroxi ne Sodium 75 MCG No QD Levothyrox ine Sodium 75 MCG amLODIPine Besylate 5 MG amLODIPine Besylate 5 MG No 1{table t} QD amLODIPine Besylate 5 MG Venlafaxine HCl ER 150 MG Venlafaxine HCl ER 150 MG No 1{capsu le_with _food} QD Venlafaxin e HCl ER 150 MG Atorvastati n Calcium 40 MG Atorvastati n Calcium 40 MG No Atorvastat in Calcium 40 MG Amiodarone HCl 200 MG Amiodarone HCl 200 MG No .5{tabl et} QD Amiodarone HCl 200 MG Metoprolol Succinate ER 100 MG Metoprolol Succinate ER 100 MG No 1{table t} QD Metoprolol Succinate ER 100 MG Atorvastati n Calcium 80 MG Atorvastati n Calcium 80 MG No 1{table t} QD Atorvastat in Calcium 80 MG traZODone HCl 150 MG traZODone HCl 150 MG No 1{table t_at_be dtime_a s_neede d} QD traZODone HCl 150 MG Carvedilol 12.5 MG Carvedilol 12.5 MG No 1{table t_with_ food} QD Carvedilol 12.5 MG traZODone HCl 150 MG traZODone HCl 150 MG No traZODone HCl 150 MG Aspir-81 81 MG Aspir-81 81 MG No 1{table t} QD Aspir-81 81 MG Venlafaxine HCl ER 150 MG Venlafaxine HCl ER 150 MG No 1{capsu le_with _food} QD Venlafaxin e HCl ER 150 MG glipiZIDE 10 MG glipiZIDE 10 MG No 1{table t_with_ food} BID glipiZIDE 10 MG metFORMIN HCl 1000 MG metFORMIN HCl 1000 MG No 1{table t_with_ a_meal} BID metFORMIN HCl 1000 MG Xarelto 20 MG Xarelto 20 MG No 1{table t_with_ food} QD Xarelto 20 MG Levothyroxi ne Sodium 75 MCG Levothyroxi ne Sodium 75 MCG No QD Levothyrox ine Sodium 75 MCG metFORMIN HCl 1000 MG metFORMIN HCl 1000 MG No 1{table t_with_ a_meal} BID metFORMIN HCl 1000 MG glipiZIDE 10 MG glipiZIDE 10 MG No glipiZIDE 10 MG Levothyroxi ne Sodium 75 MCG Levothyroxi ne Sodium 75 MCG No QD Levothyrox ine Sodium 75 MCG amLODIPine Besylate 5 MG amLODIPine Besylate 5 MG No 1{table t} QD amLODIPine Besylate 5 MG Venlafaxine HCl ER 150 MG Venlafaxine HCl ER 150 MG No 1{capsu le_with _food} QD Venlafaxin e HCl ER 150 MG Atorvastati n Calcium 40 MG Atorvastati n Calcium 40 MG No Atorvastat in Calcium 40 MG Amiodarone HCl 200 MG Amiodarone HCl 200 MG No .5{tabl et} QD Amiodarone HCl 200 MG Metoprolol Succinate ER 100 MG Metoprolol Succinate ER 100 MG No 1{table t} QD Metoprolol Succinate ER 100 MG Atorvastati n Calcium 80 MG Atorvastati n Calcium 80 MG No 1{table t} QD Atorvastat in Calcium 80 MG traZODone HCl 150 MG traZODone HCl 150 MG No 1{table t_at_be dtime_a s_neede d} QD traZODone HCl 150 MG Carvedilol 12.5 MG Carvedilol 12.5 MG No 1{table t_with_ food} QD Carvedilol 12.5 MG traZODone HCl 150 MG traZODone HCl 150 MG No traZODone HCl 150 MG Aspir-81 81 MG Aspir-81 81 MG No 1{table t} QD Aspir-81 81 MG Venlafaxine HCl ER 150 MG Venlafaxine HCl ER 150 MG No 1{capsu le_with _food} QD Venlafaxin e HCl ER 150 MG glipiZIDE 10 MG glipiZIDE 10 MG No 1{table t_with_ food} BID glipiZIDE 10 MG metFORMIN HCl 1000 MG metFORMIN HCl 1000 MG No 1{table t_with_ a_meal} BID metFORMIN HCl 1000 MG Xarelto 20 MG Xarelto 20 MG No 1{table t_with_ food} QD Xarelto 20 MG Levothyroxi ne Sodium 75 MCG Levothyroxi ne Sodium 75 MCG No QD Levothyrox ine Sodium 75 MCG metFORMIN HCl 1000 MG metFORMIN HCl 1000 MG No 1{table t_with_ a_meal} BID metFORMIN HCl 1000 MG glipiZIDE 10 MG glipiZIDE 10 MG No glipiZIDE 10 MG Levothyroxi ne Sodium 75 MCG Levothyroxi ne Sodium 75 MCG No QD Levothyrox ine Sodium 75 MCG amLODIPine Besylate 5 MG amLODIPine Besylate 5 MG No 1{table t} QD amLODIPine Besylate 5 MG Venlafaxine HCl ER 150 MG Venlafaxine HCl ER 150 MG No 1{capsu le_with _food} QD Venlafaxin e HCl ER 150 MG Atorvastati n Calcium 40 MG Atorvastati n Calcium 40 MG No Atorvastat in Calcium 40 MG Amiodarone HCl 200 MG Amiodarone HCl 200 MG No .5{tabl et} QD Amiodarone HCl 200 MG Metoprolol Succinate ER 100 MG Metoprolol Succinate ER 100 MG No 1{table t} QD Metoprolol Succinate ER 100 MG Aspir-81 81 MG Aspir-81 81 MG No 1{table t} QD Aspir-81 81 MG glipiZIDE 10 MG glipiZIDE 10 MG No 1{table t_with_ food} BID glipiZIDE 10 MG amLODIPine Besylate 2.5 MG amLODIPine Besylate 2.5 MG No 1{table t} QD amLODIPine Besylate 2.5 MG metFORMIN HCl 1000 MG metFORMIN HCl 1000 MG No 1{table t_with_ a_meal} BID metFORMIN HCl 1000 MG Amiodarone HCl 200 MG Amiodarone HCl 200 MG No .5{tabl et} QD Amiodarone HCl 200 MG Atorvastati n Calcium 40 MG Atorvastati n Calcium 40 MG No 1{table t} QD Atorvastat in Calcium 40 MG Levothyroxi ne Sodium 75 MCG Levothyroxi ne Sodium 75 MCG No QD Levothyrox ine Sodium 75 MCG traZODone HCl 150 MG traZODone HCl 150 MG No 1{table t_at_be dtime_a s_neede d} QD traZODone HCl 150 MG Xarelto 20 MG Xarelto 20 MG No 1{table t_with_ food} QD Xarelto 20 MG Atorvastati n Calcium 40 MG Atorvastati n Calcium 40 MG No Atorvastat in Calcium 40 MG Venlafaxine HCl ER 150 MG Venlafaxine HCl ER 150 MG No 1{capsu le_with _food} QD Venlafaxin e HCl ER 150 MG Atenolol 25 MG Atenolol 25 MG No QD Atenolol 25 MG Amiodarone HCl 200 MG Amiodarone HCl 200 MG No 1{table t} QD Amiodarone HCl 200 MG glipiZIDE 10 MG glipiZIDE 10 MG No glipiZIDE 10 MG Xarelto 20 MG Xarelto 20 MG No Xarelto 20 MG Venlafaxine HCl ER 75 Venlafaxine HCl ER 75 No 1{capsu le_with _food} QD Venlafaxin e HCl ER 75 Levothyroxi ne Sodium 75 MCG Levothyroxi ne Sodium 75 MCG No QD Levothyrox ine Sodium 75 MCG Aspir-81 81 MG Aspir-81 81 MG No 1{table t} QD Aspir-81 81 MG Venlafaxine HCl ER 75 MG Venlafaxine HCl ER 75 MG No 1{capsu le_with _food} QD Venlafaxin e HCl ER 75 MG traZODone HCl 50 MG traZODone HCl 50 MG No QD traZODone HCl 50 MG metFORMIN HCl 1000 MG metFORMIN HCl 1000 MG No 1{table t_with_ a_meal} BID metFORMIN HCl 1000 MG metFORMIN HCl 1000 MG metFORMIN HCl 1000 MG No metFORMIN HCl 1000 MG glipiZIDE 10 MG glipiZIDE 10 MG No 1{table t_with_ food} BID glipiZIDE 10 MG amLODIPine Besylate 5 MG amLODIPine Besylate 5 MG No 1{table t} QD amLODIPine Besylate 5 MG Levothyroxi ne Sodium 75 MCG Levothyroxi ne Sodium 75 MCG No Levothyrox ine Sodium 75 MCG Carvedilol 12.5 MG Carvedilol 12.5 MG No 1{table t_with_ food} QD Carvedilol 12.5 MG Xarelto 20 MG Xarelto 20 MG No 1{table t_with_ food} QD Xarelto 20 MG traZODone HCl 50 MG traZODone HCl 50 MG No traZODone HCl 50 MG Atorvastati n Calcium 40 MG Atorvastati n Calcium 40 MG No Atorvastat in Calcium 40 MG Atorvastati n Calcium 40 MG Atorvastati n Calcium 40 MG No 1{table t} QD Atorvastat in Calcium 40 MG Immunizations Ordered Immunization Name Filled Immunization Name Date Status Comments Source Adacel (Tdap) Adacel (Tdap) 2019-06-02 11:18:00 Completed [facility] Adacel (Tdap) Adacel (Tdap) 2019-06-02 11:18:00 Completed [facility] Adacel (Tdap) Adacel (Tdap) 2019-06-02 11:18:00 Completed [facility] Adacel (Tdap) Adacel (Tdap) 2019-06-02 11:18:00 Completed [facility] Adacel (Tdap) Adacel (Tdap) 2019-06-02 11:18:00 Completed [facility] Adacel (Tdap) Adacel (Tdap) 2019-06-02 11:18:00 Completed [facility] Adacel (Tdap) Adacel (Tdap) 2019-06-02 11:18:00 Completed [facility] Adacel (Tdap) Adacel (Tdap) 2019-06-02 11:18:00 Completed [facility] Adacel (Tdap) Adacel (Tdap) 2019-06-02 11:18:00 Completed [facility] Adacel (Tdap) Adacel (Tdap) 2019-06-02 11:18:00 Completed [facility] Adacel (Tdap) Adacel (Tdap) 2019-06-02 11:18:00 Completed [facility] Adacel (Tdap) Adacel (Tdap) 2019-06-02 11:18:00 [facility]pleted [facility] Adacel (Tdap) Adacel (Tdap) 2019-06-02 11:18:00 Completed [facility] Adacel (Tdap) Adacel (Tdap) 2019-06-02 11:18:00 Completed [facility] Adacel (Tdap) Adacel (Tdap) 2019-06-02 11:18:00 Completed [facility] Adacel (Tdap) Adacel (Tdap) 2019-06-02 11:18:00 Completed [facility] Adacel (Tdap) Adacel (Tdap) 2019-06-02 11:18:00 Completed [facility] Adacel (Tdap) Adacel (Tdap) 2019-06-02 11:18:00 Completed [facility] Adacel (Tdap) Adacel (Tdap) 2019-06-02 11:18:00 Completed [facility] pheumocococcal pheumocococcal 2019-04-26 00:00:00 Completed [facility] pheumocococcal pheumocococcal 2019-04-26 00:00:00 Completed [facility] pheumocococcal pheumocococcal 2019-04-26 00:00:00 Completed [facility] pheumocococcal pheumocococcal 2019-04-26 00:00:00 Completed [facility] pheumocococcal pheumocococcal 2019-04-26 00:00:00 Completed [facility] pheumocococcal pheumocococcal 2019-04-26 00:00:00 Completed [facility] pheumocococcal pheumocococcal 2019-04-26 00:00:00 Completed [facility] pheumocococcal pheumocococcal 2019-04-26 00:00:00 Completed [facility] pheumocococcal pheumocococcal 2019-04-26 00:00:00 Completed [facility] pheumocococcal pheumocococcal 2019-04-26 00:00:00 Completed [facility] pheumocococcal pheumocococcal 2019-04-26 00:00:00 Completed [facility] pheumocococcal pheumocococcal 2019-04-26 00:00:00 Completed [facility] pheumocococcal pheumocococcal 2019-04-26 00:00:00 Completed [facility] pheumocococcal pheumocococcal 2019-04-26 00:00:00 Completed [facility] pheumocococcal pheumocococcal 2019-04-26 00:00:00 Completed [facility] pheumocococcal pheumocococcal 2019-04-26 00:00:00 Completed [facility] pheumocococcal pheumocococcal 2019-04-26 00:00:00 Completed [facility] pheumocococcal pheumocococcal 2019-04-26 00:00:00 Completed [facility] pheumocococcal pheumocococcal 2019-04-26 00:00:00 Completed [facility] Prevnar 20 (PCV20) Prevnar 20 (PCV20) Unknown Completed [facility] pheumocococcal pheumocococcal Unknown Completed [facility] Adacel (Tdap) Adacel (Tdap) Unknown Completed [facility] Prevnar 20 (PCV20) Prevnar 20 (PCV20) Unknown Completed [facility] pheumocococcal pheumocococcal Unknown Completed [facility] Adacel (Tdap) Adacel (Tdap) Unknown Completed [facility] Prevnar 20 (PCV20) Prevnar 20 (PCV20) Unknown Completed [facility] pheumocococcal pheumocococcal Unknown Completed [facility] Adacel (Tdap) Adacel (Tdap) Unknown Completed [facility] Prevnar 20 (PCV20) Prevnar 20 (PCV20) Unknown Completed [facility] pheumocococcal pheumocococcal Unknown Completed [facility] Adacel (Tdap) Adacel (Tdap) Unknown Completed [facility] Prevnar 20 (PCV20) Prevnar 20 (PCV20) Unknown Completed [facility] pheumocococcal pheumocococcal Unknown Completed [facility] Adacel (Tdap) Adacel (Tdap) Unknown Completed [facility] Prevnar 20 (PCV20) Prevnar 20 (PCV20) Unknown Completed [facility] pheumocococcal pheumocococcal Unknown Completed [facility] Adacel (Tdap) Adacel (Tdap) Unknown Completed [facility] Vital Signs Vital Name Observation Time Observation Value Comments S ource height 2023-02-05 11:00:00 69 [in_i] Commo n [facility] weight 2023-02-05 11:00:00 148.0 [lb_av] [facility] temperature 2023-02-05 11:00:00 96.3 [degF] Com mon [facility] bmi 2023-02-05 11:00:00 21.85 kg/m2 Comm on [facility] oximetry 2023-02-05 11:00:00 97 % Commo n [facility] respiratory rate 2023-02-05 11:00:00 17 /min [facility] blood pressure systolic 2023-02-05 11:00:00 139 mm[Hg] [facility] blood pressure diastolic 2023-02-05 11:00:00 83 mm[Hg] [facility] height 2023-01-06 10:40:00 69 [in_i] Commo n [facility] weight 2023-01-06 10:40:00 157.8 [lb_av] Co [facility] temperature 2023-01-06 10:40:00 97.7 [degF] Com [facility] bmi 2023-01-06 10:40:00 23.3 kg/m2 Commo n [facility] oximetry 2023-01-06 10:40:00 91 % Commo n [facility] respiratory rate 2023-01-06 10:40:00 16 /min [facility] blood pressure systolic 2023-01-06 10:40:00 123 mm[Hg] [facility] blood pressure diastolic 2023-01-06 10:40:00 62 mm[Hg] [facility] height 2023-01-06 11:00:00 69 [in_i] Commo n [facility] weight 2023-01-06 11:00:00 157.8 [lb_av] Co [facility] temperature 2023-01-06 11:00:00 97.7 [degF] Com [facility] bmi 2023-01-06 11:00:00 23.3 kg/m2 Commo n [facility] oximetry 2023-01-06 11:00:00 91 % Commo n [facility] respiratory rate 2023-01-06 11:00:00 16 /min [facility] blood pressure systolic 2023-01-06 11:00:00 123 mm[Hg] [facility] blood pressure diastolic 2023-01-06 11:00:00 62 mm[Hg] [facility] height 2022-03-26 10:40:00 69 [in_i] Commo n [facility] weight 2022-03-26 10:40:00 140.8 [lb_av] Co [facility] temperature 2022-03-26 10:40:00 97.4 [degF] Com mon [facility] bmi 2022-03-26 10:40:00 20.79 kg/m2 Comm on [facility] oximetry 2022-03-26 10:40:00 98 % Commo n [facility] respiratory rate 2022-03-26 10:40:00 16 /min [facility] blood pressure systolic 2022-03-26 10:40:00 132 mm[Hg] [facility] blood pressure diastolic 2022-03-26 10:40:00 68 mm[Hg] [facility] respiratory rate 2022-03-26 11:20:00 16 /min [facility] blood pressure systolic 2022-03-26 11:20:00 132 mm[Hg] [facility] blood pressure diastolic 2022-03-26 11:20:00 68 mm[Hg] [facility] height 2022-03-26 11:20:00 69 [in_i] Commo n [facility] weight 2022-03-26 11:20:00 140.8 [lb_av] Co [facility] temperature 2022-03-26 11:20:00 97.4 [degF] Com mon [facility] bmi 2022-03-26 11:20:00 20.79 kg/m2 Comm on [facility] oximetry 2022-03-26 11:20:00 98 % Commo n [facility] height 2021-08-16 10:00:00 69 [in_i] Commo n [facility] weight 2021-08-16 10:00:00 150 [lb_av] Comm on [facility] bmi 2021-08-16 10:00:00 22.15 kg/m2 Comm on [facility] blood pressure systolic 2021-08-16 10:00:00 148 mm[Hg] [facility] blood pressure diastolic 2021-08-16 10:00:00 84 mm[Hg] [facility] height 2021-07-26 10:00:00 69 [in_i] Commo n [facility] weight 2021-07-26 10:00:00 150 [lb_av] Comm on [facility] bmi 2021-07-26 10:00:00 22.15 kg/m2 Comm on [facility] blood pressure systolic 2021-07-26 10:00:00 150 mm[Hg] [facility] blood pressure diastolic 2021-07-26 10:00:00 80 mm[Hg] [facility] height 2021-07-12 10:00:00 69 [in_i] Commo n [facility] weight 2021-07-12 10:00:00 150 [lb_av] Comm on [facility] bmi 2021-07-12 10:00:00 22.15 kg/m2 Comm on [facility] blood pressure systolic 2021-07-12 10:00:00 152 mm[Hg] [facility] blood pressure diastolic 2021-07-12 10:00:00 82 mm[Hg] [facility] height 2021-06-28 14:20:00 69 [in_i] Commo n [facility] weight 2021-06-28 14:20:00 150 [lb_av] Comm on [facility] bmi 2021-06-28 14:20:00 22.15 kg/m2 Comm on [facility] blood pressure systolic 2021-06-28 14:20:00 156 mm[Hg] [facility] blood pressure diastolic 2021-06-28 14:20:00 78 mm[Hg] [facility] height 2021-06-04 14:00:00 69 [in_i] Commo n [facility] weight 2021-06-04 14:00:00 150 [lb_av] Comm on [facility] bmi 2021-06-04 14:00:00 22.15 kg/m2 Comm on [facility] blood pressure systolic 2021-06-04 14:00:00 156 mm[Hg] [facility] blood pressure diastolic 2021-06-04 14:00:00 78 mm[Hg] [facility] height 2021-05-24 11:20:00 69 [in_i] Commo n [facility] weight 2021-05-24 11:20:00 155 [lb_av] Comm on [facility] temperature 2021-05-24 11:20:00 97.4 [degF] Com mon [facility] bmi 2021-05-24 11:20:00 22.89 kg/m2 Comm on [facility] oximetry 2021-05-24 11:20:00 99 % Commo n [facility] respiratory rate 2021-05-24 11:20:00 19 /min [facility] blood pressure systolic 2021-05-24 11:20:00 134 mm[Hg] [facility] blood pressure diastolic 2021-05-24 11:20:00 74 mm[Hg] [facility] Systolic blood pressure 2020-01-31 15:04:00 167 mm[Hg] [facility] Diastolic blood pressure 2020-01-31 15:04:00 86 mm[Hg] [facility] Heart rate 2020-01-31 15:03:00 82 /min [facility] Body temperature 2020-01-31 15:03:00 35.89 Kaye [facility] Respiratory rate 2020-01-31 15:03:00 20 /min [facility] Body height 2020-01-31 15:03:00 175.3 cm [facility] Body weight 2020-01-31 15:03:00 71.668 kg [facility] BMI 2020-01-31 15:03:00 23.33 kg/m2 [facility] Oxygen saturation in Arterial blood by Pulse oximetry 2020-01-31 15:03:00 95 /min [facility] Systolic blood pressure 2019-07-15 18:59:00 121 mm[Hg] [facility] Diastolic blood pressure 2019-07-15 18:59:00 67 mm[Hg] [facility] Heart rate 2019-07-15 18:59:00 80 /min [facility] Body height 2019-07-15 18:59:00 172.7 cm [facility] Body weight 2019-07-15 18:59:00 73.936 kg [facility] BMI 2019-07-15 18:59:00 24.78 kg/m2 [facility] Systolic blood pressure 2019-07-15 18:59:00 121 mm[Hg] [facility] Diastolic blood pressure 2019-07-15 18:59:00 67 mm[Hg] [facility] Heart rate 2019-07-15 18:59:00 80 /min [facility] Body height 2019-07-15 18:59:00 [facility]7 [facility] 2019-07-15 18:59:00 73.936 kg [facility] BMI 2019-07-15 18:59:00 24.78 kg/m2 [facility] Procedures Procedure Date / Time Performed Performing Clinician Source [id number] 2021-12-04 00:00:00 MCKRO [facility] [id number] 2021-12-04 00:00:00 MCKRO [facility] [id number] 2021-12-04 00:00:00 MCKRO [facility] [id number] 2021-12-04 00:00:00 MCKRO [facility] [id number] 2021-12-04 00:00:00 HERIBERTOCHU [facility] [id number] 2021-10-26 00:00:00 MCKRO [facility] [id number] 2021-10-26 00:00:00 MCKRO [facility] [id number] 2021-10-26 00:00:00 JEAN PAUL [facility] [id number] 2021[facility]10[facility]26 [id number] 2021-10-26 00:00:00 [facility] [id number] 2021-10-26 00:00:00 [facility] REFERRAL- REQUEST/RESPONSE 2020-04-13 05:01:00 Doctor Unassigned, [place] [facility] VITAMIN B12, LEVEL 2020-01-31 17:09:00 Chantel Chung [facility] [place] [facility]OL[facility] 2020-01-31 17:09:00 Armando Chung [facility] FREE T4 2020-01-31 17:09:00 Armando Chung [facility] THYROID STIMULATING HORMONE 2020-01-31 17:09:00 Chantel Chung [facility] COMP. METABOLIC PANEL (89793) 2020-01-31 17:09:00 Chantel Chung [facility] LIPID PANEL (78170)(TOTAL CHOLESTEROL, TRIGLYCERIDES, HDL) 2020-01-31 17:09:00 Chantel Chung [facility] CBC WITH DIFF 2020-01-31 17:09:00 Armando Chung [facility] GLYCOSYLATED HEMOGLOBIN (A1C) 2020-01-31 17:09:00 Chantel Chung [facility] HCV ANTIBODY 2020-01-31 17:09:00 Armando Chung [facility] HIGH SENSITIVITY CRP 2020-01-31 17:09:00 Chantel Leigh [facility] HOMOCYSTEINE 2020-01-31 17:09:00 Armando Chung [facility] VITAMIN D, 25-OH 2020-01-31 17:09:00 Chantel Chung [facility] FREE T3 2020-01-31 17:09:00 Armando Chung [facility] ASSIGNMENT OF BENEFITS 2020-01-31 16:43:42 Docto r Unassigned, [place] [facility] REFERRAL- REQUEST/RESPONSE 2019-08-26 06:01:00 Doctor Unassigned, [place] [facility] REFERRAL- REQUEST/RESPONSE 2019-08-05 06:01:00 Doctor Unassigned, [place] [facility] XR WRIST <3 VW RIGHT 2019-07-15 19:00:31 Alejandro Sharpe [facility] Encounters Start Date/Time End Date/Time Encounter Type Admission Type Attending [facility] Facility Care Department Encounter ID Source 2023-06-03 15:43:00 Outpatient Svetlana Collins [facility] STLMLC [id number] [facility] 2023-01-06 11:57:00 Outpatient Svetlana Collins [facility] STLMLC [id number] [facility] 2023-01-03 13:46:00 Outpatient Svetlana Collins [facility]GE[facility] STLMLC [id number] [facility] 2023-01-02 08:19:00 Outpatient Svetalna Collins STLMLC STLMLC [id number] [facility] 2022-10-29 11:00:02 Outpatient Svetlana Collins [facility] STLMLC [id number] [facility] 2022-10-24 13:26:01 Outpatient Svetlana Collins STLMLC STLMLC [id number] [facility] 2022-04-05 14:21:01 Outpatient Arredondo, Na STLMLC STLMLC [id number] [facility] 2022-03-22 13:35:01 Outpatient Arredondo, Na STLMLC STLMLC [id number] [facility] 2021-11-30 13:35:01 Outpatient Arredondo, Na STLMLC STLMLC [id number] [facility] 2021-11-28 15:37:02 Outpatient Arredondo, Na STLMLC STLMLC [id number] [facility] 2021-11-14 15:35:00 Outpatient Arredondo, Na STLMLC STLMLC [id number] [facility] 2021-08-13 09:46:02 Outpatient Arredondo, Na STLMLC STLMLC [id number] [facility] 2021-07-18 14:30:11 Outpatient Arredondo, Na STLMLC STLMLC [id number] [facility] 2021-07-18 14:29:41 Outpatient Arredondo, Na STLMLC STLMLC [id number] [facility] 2021-07-18 14:29:06 Outpatient Arredondo, Na STLMLC STLMLC [id number] [facility] 2021-07-18 14:26:07 Outpatient Arredondo, Na STLMLC STLMLC [id number] [facility] 2021-07-18 14:24:17 Outpatient Arredondo, Na STLMLC STLMLC [id number] [facility] 2021-07-18 14:20:50 Outpatient Arredondo, Na STLMLC STLMLC [id number] [facility] 2021-07-18 14:19:23 Outpatient Arredondo, Na STLMLC STLMLC [id number] [facility] 2021-07-18 12:10:18 Outpatient Arredondo, Na STLMLC STLMLC [id number] [facility] 2023-02-05 00:00:00 2023-02-05 00:00:00 OFFICE VISIT ESTAB PT LEVEL 4 STLMLC STLMLC [id number] [facility] 2023-01-06 00:00:00 2023-01-06 00:00:00 OFFICE VISIT ESTAB PT LEVEL 4 STLMLC STLMLC [id number] [facility] 2023-01-06 00:00:00 2023-01-06 00:00:00 SUB ANNUAL MCR WELLNESS VISIT STLMLC STLMLC [id number] [facility] 2023-01-06 00:00:00 2023-01-06 00:00:00 (TEL) STLMLC STLMLC [id number] [facility] 2022-10-29 00:00:00 2022-10-29 00:00:00 (TEL) STLMLC STLMLC [id number] [facility] 2022-08-09 00:00:00 2022-08-09 00:00:00 (TEL) STLMLC STLMLC [id number] [facility] 2022-04-05 00:00:00 2022-04-05 00:00:00 (TEL) STLMLC STLMLC [id number] [facility] 2022-03-26 00:00:00 2022-03-26 00:00:00 OFFICE VISIT EST PT LEVEL 3 STLMLC STLMLC [id number] [facility] 2022-03-26 00:00:00 2022-03-26 00:00:00 SUB ANNUAL MCR WELLNESS VISIT STLMLC STLMLC [id number] [facility] 2021-12-04 10:45:00 2021-12-07 15:59:00 Inpatient Ady ThompsonU INTE [id number] [facility] 2021-12-04 10:45:00 2021-12-07 15:59:00 Inpatient Ady ThompsonU INTE [id number] [facility] 2021-12-03 11:02:00 2021-12-03 11:02:00 [id number] [facility] 2021-12-03 11:02:00 2021-12-03 11:02:00 Outpatient Ady ThompsonU [facility] [id number] [facility] 2021-11-14 00:00:00 2021-11-14 00:00:00 (TEL) STLMLC STLMLC [id number] [facility] 2021-11-01 00:00:00 2021-11-01 00:00:00 (TEL) STLMLC STLMLC [id number] [facility] 2021-10-26 17:53:00 2021-10-29 12:44:00 Inpatient Ady Thompson [facility] [id number] [facility] 2021-10-26 17:53:00 2021-10-29 12:44:00 Inpatient Ady Thompson [facility] [id number] [facility] 2021-10-20 03:37:00 2021-10-20 03:37:00 Outpatient Laurie Davila [facility] [id number] [facility] 2021-08-16 00:00:00 2021-08-16 00:00:00 Postop visit STLMLC STLMLC [id number] [facility] 2021-08-03 00:00:00 2021-08-03 00:00:00 (TEL) STLMLC STLMLC [id number] [facility] 2021-07-27 00:00:00 2021-07-27 00:00:00 (TEL) STLMLC STLMLC [id number] [facility] 2021-07-26 00:00:00 2021-07-26 00:00:00 Postop visit STLMLC STLMLC [id number] [facility] 2021-07-12 00:00:00 2021-07-12 00:00:00 Postop visit STLMLC STLMLC [id number] [facility] 2021-07-11 00:00:00 2021-07-11 00:00:00 (TEL) STLMLC STLMLC [id number] [facility] 2021-06-28 00:00:00 2021-06-28 00:00:00 Postop visit STLMLC STLMLC [id number] [facility] 2021-06-25 00:00:00 2021-06-25 00:00:00 OL DIG E/M SVC 11-20 MIN STLMLC STLMLC [id number] [facility] 2021-06-12 00:00:00 2021-06-12 00:00:00 (TEL) STLMLC STLMLC [id number] [facility] 2021-06-05 00:00:00 2021-06-05 00:00:00 (TEL) STLMLC STLMLC [id number] [facility] 2021-06-04 00:00:00 2021-06-04 00:00:00 OFFICE VISIT EST PT LEVEL 3 STLMLC STLMLC [id number] [facility] 2021-05-24 00:00:00 2021-05-24 00:00:00 OFFICE VISIT ESTAB PT LEVEL 4 STLMLC STLMLC [id number] [facility] 2021-05-15 00:00:00 2021-05-15 00:00:00 Brittany Davenport [facility] 1.2.840.114 350.1.13.10 4.2.7.2.686 [id number] [facility] 2021-05-15 00:00:00 2021-05-15 00:00:00 (TEL) STLMLC STLMLC [id number] [facility] 2020-11-14 00:00:00 2020-11-14 00:00:00 Outpatient STLMLC STLMLC [id number] [facility] 2020-08-15 00:00:00 2020-08-15 00:00:00 Outpatient STLMLC STLMLC [id number] [facility] 2020-06-02 00:00:00 2020-06-02 00:00:00 Outpatient STLMLC STLMLC [id number] [facility] 2020-05-25 00:00:00 2020-05-25 00:00:00 Outpatient STLMLC STLMLC [id number] [facility] 2020-04-25 00:00:00 2020-04-25 00:00:00 Refill Chantel Chung [facility] 1.2.840.114 350.1.13.10 4.2.7.2.686 [id number] [facility] 2020-04-13 00:00:00 2020-04-13 00:00:[address] [facility] 1..840.114 350.1.13.10 4.2.7.2.686 [id number] [facility] 2020-04-13 00:00:00 2020-04-13 00:00:00 Orders Only Doctor Unassigned, [place] [facility] 1..840.114 350.1.13.10 4.2.7.2.686 [id number] [facility] 2020-04-06 13:00:00 2020-04-06 13:00:00 Outpatient R CHANTEL CHUNG [facility] [id number] [facility] 2020-02-25 15:20:00 2020-02-25 15:20:00 Outpatient R KARIME CHUNGBETH [facility] [id number] [facility] 2020-02-23 00:00:00 2020-02-23 00:00:00 Telephone Chantel Chung [facility] 1.2.840.114 350.1.13.10 4.2.7.2.686 [id number] [facility] 2020-02-22 16:20:00 2020-02-22 16:20:00 Outpatient R CHANTEL CHUNG [facility] [id number] [facility] 2020-02-10 16:20:00 2020-02-10 16:20:00 [facility] [id number] [facility] 2020-02-10 00:00:00 2020-02-10 00:00:00 Telephone Chantel Chung [facility] Building 1.2.840.114 350.1.13.10 4.2.7.2.686 [id number] [facility] 2020-02-04 00:00:00 2020-02-04 00:00:00 Case Management ChungKarmenChantel A [facility] 1.2.840.114 350.1.13.10 4.2.7.2.686 [id number] [facility] 2020-01-31 11:42:35 2020-01-31 11:57:35 Medical Lab Director Visit Pob, Adc Lab Main Chantel Chung [facility] 1.2.840.114 350.1.13.10 4.2.7.2.686 [id number] [facility] 2020-01-31 09:52:31 2020-01-31 11:08:26 Office Visit Chantel Chung [facility] 1.2.840.114 350.1.13.10 4.2.7.2.686 [id number] [facility] 2020-01-31 09:40:00 2020-01-31 09:40:00 Outpatient R CHANTEL CHUNG [facility] [id number] [facility] 2020-01-31 00:00:00 2020-01-31 00:00:00 Orders Only Doctor Unassigned, [place] [facility] 1.2.840.114 350.1.13.10 4.2.7.2.686 [id number] [facility] 2019-08-27 00:00:00 2019-08-27 00:00:00 Telephone ChungChantel manning [facility] Building 1.2.840.114 350.1.13.10 4.2.7.2.686 [id number] [facility] 2019-08-26 00:00:00 2019-08-26 00:00:00 Orders Only Doctor Unassigned, [place] [facility] 1.2840.114 350.1.13.10 4.2.7.2.686 [id number] [facility] 2019-08-23 09:00:00 2019-08-23 09:00:00 Outpatient Alondra Skinny [facility] [id number] [facility] 2019-08-19 13:00:00 2019-08-19 13:00:00 Outpatient Skinny Cantu [facility] [id number] [facility] 2019-08-06 00:00:00 2019-08-06 00:00:00 Telephone ChungChantel manning [facility] 1.2840.114 350.1.13.10 4.2.7.2.686 [id number] [facility] 2019-08-06 00:00:00 2019-08-06 00:00:00 Telephone ChungJia manningjess Long [facility] 1.2.840.114 350.1.13.10 4.2.7.2.686 [id number] 2019-08-05 00:00:00 2019-08-05 00:00:00 Orders Only Doctor Unassigned, [place] [facility] 1.2840.114 350.1.13.10 4.2.7.2.686 [id number] [facility] 2019-07-15 13:00:00 2019-07-15 23:59:00 Hospital Encounter Alejandro Sharpe [facility] [place] 1.2840.114 350.1.13.10 4.2.7.2.686 [id number] [facility] 2019-07-15 13:00:00 2019-07-15 23:59:00 Hospital Encounter Alejandro Sharpe [facility] 1.2.840.114 350.1.13.10 4.2.7.2.686 [id number] 2019-07-15 12:38:26 2019-07-15 12:53:26 Office Visit Alejandro Sharpe [facility] 1.2.840.114 350.1.13.10 4.2.7.2.686 [id number] [facility] 2019-07-15 12:38:26 2019-07-15 12:53:26 [facility] 1.2.840.114 350.1.13.10 4.2.7.2.686 [id number] 2019-07-15 00:00:00 2019-07-15 00:00:00 [facility] ([facility] 1.2.840.114 350.1.13.10 4.2.7.2.686 [id number] [facility] 2019-07-15 00:00:00 2019-07-15 00:00:00 [facility] (Out[facility] 1.2.840.114 350.1.13.10 4.2.7.2.686 [id number] Results Test Description Test Time Test Comments Results Result Co mments Source HEMOGLOBIN [id number] 00:00:00* Test Item Value Reference Range Interpretation Comme nts HEMOGLOBIN A1c (test code = 4548-4) 6.1 % See_Comment H [Automated Virtual [employer] ge] The system which generated this result transmitted reference range: 4.2-5.6 %. The reference range was not used to interpret this result as normal/abnormal. LIPID PANEL WITH REFLEX DIRECT [id number] 00:00:00* Test Item Value Reference Range Interpretation Comme nts CALC LDL CHOL (test code = 43684-7) 95 MG/DL See_Comment [Automated [employer] Pixlee] The system which generated this result transmitted reference range: <100 MG/DL. The reference range was not used to interpret this result as normal/abnormal. CHOLESTEROL (test code = 2093-3) 180 MG/DL See_Comment [Automated [employer] ge] The system which generated this result transmitted reference range: <200 MG/DL. The reference range was not used to interpret this result as normal/abnormal. HDL CHOLESTEROL (test code = 2085-9) 55 MG/DL See_Comment [Automated [employer]] The system which generated this result transmitted reference range: >39 MG/DL. The reference range was not used to interpret this result as normal/abnormal. RISK RATIO LDL/HDL (test code = 93303-3) 1.73 RATIO See_Comment [Automated message] The system which generated this result transmitted reference range: <3.22 RATIO. The reference range was not used to interpret this result as normal/abnormal. TRIGLYCERIDES (test code = 2571-8) 200 MG/DL See_Comment H [Automated [employer]] The system which generated this result transmitted reference range: <150 MG/DL. The reference range was not used to interpret this result as normal/abnormal. TSH + FREE T4 [id number] 00:00:00* Test Item Value Reference Range Interpretation Comme nts FREE T4 (THYROXINE) (test code = 3024-7) 1.28 NG/DL See_Comment [Automated message] The system which generated this result transmitted reference range: 0.80-1.90 NG/DL. The reference range was not used to interpret this result as normal/abnormal. TSH, THIRD GENERATION (test code = 71497-0) 1.040 UIU/ML See_Comment [Automated [employer]] The system which generated this result transmitted reference range: 0.400-4.100 UIU/ML. The reference range was not used to interpret this result as normal/abnormal. ALBUMIN/CREATININE RATIO, RANDOM [id number] 00:00:00* Test Item Value Reference Range Interpretation Comme nts ALBUMIN, URINE, RANDOM (test code = 64195-8) <0.2 MG/DL NOT ESTAB MG/DL CALC ALBUMIN/CREAT, RND (test code = 95408-1) <10 MG/G See_Comment [Automated messa ge] The system which generated this result transmitted reference range: <30 MG/G. The reference range was not used to interpret this result as normal/abnormal. CREATININE, URINE, CONC. (test code = 2161-8) 20.5 MG/DL NOT ESTAB MG/DL COMPREHENSIVE METABOLIC [id number] 00:00:00* Test Item Value Reference Range Interpretation Comme nts ALBUMIN (test code = 1751-7) 4.7 G/DL See_Comment [Automated messa ge] The system which generated this result transmitted reference range: 3.5-5.2 G/DL. The reference range was not used to interpret this result as normal/abnormal. ALKALINE PHOSPHATASE (test code = 6768-6) 82 U/L See_Comment [Automated message] The system which generated this result transmitted reference range: 40-142 U/L. The reference range was not used to interpret this result as normal/abnormal. BILIRUBIN, TOTAL (test code = 1975-2) 0.3 MG/DL See_Comment [Automated message] The system which generated this result transmitted reference range: <=1.2 MG/DL. The reference range was not used to interpret this result as normal/abnormal. BUN (test code = 3094-0) 9 MG/DL See_Comment [Automated messa ge] The system which generated this result transmitted reference range: 8-23 MG/DL. The reference range was not used to interpret this result as normal/abnormal. CALCIUM (test code = 24170-1) 9.1 MG/DL See_Comment [Automated messa ge] The system which generated this result transmitted reference range: 8.5-10.5 MG/DL. The reference range was not used to interpret this result as normal/abnormal. CALC A/G RATIO (test code = 1759-0) 1.9 RATIO See_Comment [Automated messa ge] The system which generated this result transmitted reference range: 1.0-2.6 RATIO. The reference range was not used to interpret this result as normal/abnormal. CALC BUN/CREAT (test code = 3097-3) 12 RATIO See_Comment [Automated messa ge] The system which generated this result transmitted reference range: 6-28 RATIO. The reference range was not used to interpret this result as normal/abnormal. CALC GLOBULIN (test code = 48617-8) 2.5 G/DL See_Comment [Automated messa ge] The system which generated this result transmitted reference range: 1.9-3.7 G/DL. The reference range was not used to interpret this result as normal/abnormal. CARBON DIOXIDE (test code = 1963-8) 27 MEQ/L See_Comment [Automated messa ge] The system which generated this result transmitted reference range: 19-31 MEQ/L. The reference range was not used to interpret this result as normal/abnormal. CHLORIDE (test code = 2075-0) 104 MEQ/L See_Comment [Automated messa ge] The system which generated this result transmitted reference range: 95-107 MEQ/L. The reference range was not used to interpret this result as normal/abnormal. CREATININE (test code = 2160-0) 0.76 MG/DL See_Comment [Automated messa ge] The system which generated this result transmitted reference range: 0.60-1.30 MG/DL. The reference range was not used to interpret this result as normal/abnormal. eGFR (2020 CKD-EPI) (test code = 83477-8) 82 ML/MIN/1.73 See_Comment [Automated messa ge] The system which generated this result transmitted reference range: >60 ML/MIN/1.73. The reference range was not used to interpret this result as normal/abnormal. GLUCOSE (test code = 1558-6) 71 MG/DL See_Comment [Automated messa ge] The system which generated this result transmitted reference range: 70-99 MG/DL. The reference range was not used to interpret this result as normal/abnormal. POTASSIUM (test code = 2823-3) 4.4 MEQ/L See_Comment [Automated messa ge] The system which generated this result transmitted reference range: 3.5-5.4 MEQ/L. The reference range was not used to interpret this result as normal/abnormal. PROTEIN, TOTAL (test code = 2885-2) 7.2 G/DL See_Comment [Automated messa ge] The system which generated this result transmitted reference range: 6.1-8.3 G/DL. The reference range was not used to interpret this result as normal/abnormal. AST (test code = 1920-8) 18 U/L See_Comment [Automated messa ge] The system which generated this result transmitted reference range: 9-40 U/L. The reference range was not used to interpret this result as normal/abnormal. ALT (test code = 1742-6) 21 U/L See_Comment [Automated messa ge] The system which generated this result transmitted reference range: 5-40 U/L. The reference range was not used to interpret this result as normal/abnormal. SODIUM (test code = 2951-2) 143 MEQ/L See_Comment [Automated messa ge] The system which generated this result transmitted reference range: 133-146 MEQ/L. The reference range was not used to interpret this result as normal/abnormal. GLYCOSYLATED HEMOGLOBIN [id number] 12:07:00* Test Item Value Reference Range Interpretation Comme nts GLYCOSYLATED HEMOGLOBIN (HA1C) (test code = GLYHGB) 5.7 % 4.8-5.9 N Any condition th at shortens erythocyte survival or decreasesmean erythrocyte age (e.g., recovery from acute blood loss,hemolytic anemia) will falsely lower HGBA1c resultsregardless of the method used. HGBA1c results from patientswith HbSS, HbCC, and HbSc must be interpreted with cautiongiven the pathological processes, including anemia,increased red cell turnover, transfusion requirements, thatadversely impact HGBA1c as a marker of long-term glycemiccontrol. Alternative forms of testing such as fructosamineshould be considered for these patients. MEAN BLOOD GLUCOSE (test code = MBG) 117 MG/DL 70-110 H UNABLE TO DRAW BLOOD, REASON: CBNNOTIFIED PATIENT CARE STAFF: JENNY LUZ 12/07/21 AT 0822 BY Domo Uribe LAV TOP TUBE SENTGLUCOSE BEDSIDE [id number] 11:14:00* Test Item Value Reference Range Interpretation Comme nts GLUCOSE BEDSIDE TESTING (emanuel t code = GLUBED) 109 MG/DL 60-99 H GLUCOSE BEDSIDE [id number] 07:31:00* Test Item Value Reference Range Interpretation Comme nts GLUCOSE BEDSIDE TESTING (emanuel t code = GLUBED) 171 MG/DL 60-99 H BASIC METABOLIC [id number] 06:36:00* Test Item Value Reference Range Interpretation Comme nts SODIUM (test code = NA) 138 MMOL/L 137-145 N POTASSIUM (test code = K) 3.3 MMOL/L 3.5-5.1 L CHLORIDE (test code = CL) 103 MMOL/L 98-107 N CARBON DIOXIDE (test code = CO2) 28 MMOL/L 22-30 N ANION GAP (test code = GAP) 10 MMOL/L 14-24 L GLUCOSE (test code = GLU) 135 MG/DL 74-106 H BLOOD UREA NITROGEN (test code = BUN) 8 MG/DL 7-17 N GLOMERULAR FILTRATION RATE (test code = GFR) > 60 Reporting units: ml/min/1.73 m2 (Modified MDRD Formula)Reference Range: > or = 60 ml/min/1.73 m2 CREATININE (test code = CREAT) 0.60 MG/DL 0.52-1.04 N CALCIUM (test code = CA) 9.0 MG/DL 8.4-10.2 N [id number] 06:36:00* Test Item Value Reference Range Interpretation Comme nts MAGNESIUM (test code = MAG) 2.1 MG/DL 1.6-2.3 GLUCOSE BEDSIDE [id number] 16:53:00* Test Item Value Reference Range Interpretation Comme nts GLUCOSE BEDSIDE TESTING (emanuel t code = GLUBED) 136 MG/DL 60-99 H GLUCOSE BEDSIDE [id number] 11:22:00* Test Item Value Reference Range Interpretation Comme nts GLUCOSE BEDSIDE TESTING (emanuel t code = GLUBED) 146 MG/DL 60-99 H BASIC METABOLIC [id number] 10:53:00* Test Item Value Reference Range Interpretation Comme nts SODIUM (test code = NA) 138 MMOL/L 137-145 N POTASSIUM (test code = K) 3.2 MMOL/L 3.5-5.1 L CHLORIDE (test code = CL) 105 MMOL/L 98-107 N CARBON DIOXIDE (test code = CO2) 25 MMOL/L 22-30 N ANION GAP (test code = GAP) 11 MMOL/L 14-24 L GLUCOSE (test code = GLU) 262 MG/DL 74-106 H BLOOD UREA NITROGEN (test code = BUN) 6 MG/DL 7-17 L GLOMERULAR FILTRATION RATE (test code = GFR) > 60 Reporting units: ml/min/1.73 m2 (Modified MDRD Formula)Reference Range: > or = 60 ml/min/1.73 m2 CREATININE (test code = CREAT) 0.60 MG/DL 0.52-1.04 N CALCIUM (test code = CA) 8.3 MG/DL 8.4-10.2 L UNABLE TO DRAW BLOOD, REASON: CBNNOTIFIED PATIENT CARE STAFF: JENNY Baez RNON 12/06/21 AT 0921 BY Bogdan Uribe to Device Test Engineer: BLOOD SENT TO [id number] 10:53:00* Test Item Value Reference Range Interpretation Comme nts MAGNESIUM (test code = MAG) 1.5 MG/DL 1.6-2.3 L UNABLE TO DRAW BLOOD, REASON: CBNNOTIFIED PATIENT CARE STAFF: JENNY Baez RNON 12/06/21 AT 0921 BY Bogdan Uribe to Device Test Engineer: BLOOD SENT TO [facility] W/AUTO [id number] 10:41:00* Test Item Value Reference Range Interpretation Comme nts WHITE BLOOD CELL (test code = WBC) 11.3 K/MM3 3.8-9.8 H RED BLOOD CELL (test code = RBC) 3.43 M/MM3 3.58-4.97 L HEMOGLOBIN (test code = HGB) 10.0 G/DL 11.2-14.9 L HEMATOCRIT (test code = HCT) 31.7 % 33.2-43.5 L MEAN CELL VOLUME (test code = MCV) 92 fL 80.7-99.1 N MEAN CELL HGB (test code = MCH) 29.2 pg 27.0-34.1 N MEAN CELL HGB CONCETRATION (test code = MCHC) 31.5 % 32.2-35.7 L RED CELL DISTRIBUTION WIDTH (test code = RDW) 13.2 % 12.1-15.2 N PLATELET COUNT (test code = PLT) 164 K/MM3 129-368 MEAN PLATELET VOLUME (test c ode = MPV) 11.1 fl 7.4-10.4 H NEUTROPHIL % (test code = NT%) 77.6 % 43-75 H IMMATURE GRANULOCYTE % (test code = IG%) 0.3 % 0.0-2.0 N LYMPHOCYTE % (test code = LY%) 12.1 % 14-44 L MONOCYTE % (test code = MO%) 9.6 % 4-13 N EOSINOPHIL % (test code = EO%) 0.2 % 0-6 N BASOPHIL % (test code = BA%) 0.2 % 0-2 N NUCLEATED RBC % (test code = NRBC%) 0.0 % 0-1.0 N NEUTROPHIL # (test code = NT#) 8.75 K/mm3 2.0-7.6 H IMMATURE GRANULOCYTE # (test code = IG#) 0.03 x10 3/uL 0-0.03 N LYMPHOCYTE # (test code = LY#) 1.36 K/mm3 1.0-3.8 N MONOCYTE # (test code = MO#) 1.08 K/mm3 0.1-0.8 H EOSINOPHIL # (test code = EO#) 0.02 K/mm3 0.0-0.2 N BASOPHIL # (test code = BA#) 0.02 K/mm3 0.0-0.2 N NUCLEATED RBC # (test code = NRBC#) 0.00 K/mm3 0.0-0.1 N UNABLE TO DRAW BLOOD, REASON: CBNNOTIFIED PATIENT CARE STAFF: JENNY LUZ 12/06/21 AT 0922 BY Danyell Uribe BEDSIDE [id number] 06:18:00 * Test Item Value Reference Range Interpretation Comme nts GLUCOSE BEDSIDE TESTING (emanuel t code = GLUBED) 175 MG/DL 60-99 H GLUCOSE BEDSIDE [id number] 16:40:00* Test Item Value Reference Range Interpretation Comme nts GLUCOSE BEDSIDE TESTING (emanuel t code = GLUBED) 163 MG/DL 60-99 H - SP AORTOGM ABD [id number] 15:34:00 [facility] 1945 Sex: F Patient Name: ALBA KAUR Unit No: [id number] EXAMS: CPT CODE: [id number] SP AORTOGM ABD [id number] EXAMINATION: - SP AORTOGM ABD W/FILM, - XR FLUOROSCOPY OR . LOCATION: B2. HISTORY: ABDOMINALAORTIC ANEURYSM. TECHNIQUE: Intraoperative fluoroscopy was utilized during surgery. Total referenceair kerma was 95.95mGy. FINDINGS/ IMPRESSION: Intraoperative fluoroscopy was utilized during surgery. Please refer to operative report for detail. at 1534 Reported and signed by: Charis Aiken MD CC: Ady Ventura MD; Skinny Berry [facility] CenterTechnologist: RT Britt(R); Nancy Trotter (RT)(R) Transcrpt Date/Tm/Trnsp: 12/05/2021 (1534) t.SDR.PR7 Orig Print D/T: S: 12/05/2021 (1537) [facility] NAME: ALBA KAUR [id number] PHYS: [place] [address] : 1945 AGE: 76 SEX: F LOC: Z.SI03 A PHONE #: [phone] EXAM DATE: 12/04/2021 STATUS: ADM IN FAX #: [phone] RADIOLOGY NO: PAGE 1 Signed Report GLUCOSE BEDSIDE [id number] 11:54:00* Test Item Value Reference Range Interpretation Comme nts GLUCOSE BEDSIDE TESTING (emanuel t code = GLUBED) 179 MG/DL 60-99 H GLUCOSE BEDSIDE [id number] 11:49:00* Test Item Value Reference Range Interpretation Comme nts GLUCOSE BEDSIDE TESTING (emanuel t code = GLUBED) 168 MG/DL 60-99 H CREATININE W ESTIMATED [id number] 10:02:00* Test Item Value Reference Range Interpretation Comme nts BEDSIDE CREATININE (test code = CREATBED) 0.9 MG/DL 0.6-1.4 N GLOMERULAR FILTRATION RATE POC (test code = GFRBED) 61 39-90 N Reporting units: ml/min/1.73 m2 (Modified MDRD Formula)Reference Range: > or = 60 ml/min/1.73 m2 - XR CHEST [id number] 08:26:00 [facility] 1945 Sex: F Patient Name: ALBA KAUR Unit No: [id number] EXAMS: CPT CODE: [id number] XR CHEST 1V 06718 B2 EXAM: - XR CHEST 1V DATE: 12/05/2021 5:00 AM HISTORY: post op COMPARISON: Chest x-ray 12/04/2021 FINDINGS: Interval blunting of both costophrenic sulci due to pleural effusion. Subsegmental atelectasis in both lung bases. Stable position of the right subclavian central venous line. No pneumothorax. The cardio vascular silhouette is within normal limits. IMPRESSION: New bilateral pleural effusions and subsegmental atelectasis in both lung bases at 0826 Reported and signed by: Hansa Ramos MD CC: Trinity NASH; Skinny Cantu Technologist: Bola Moyer (RT) Transcrpt Date/Tm/Trnsp: 12/05/2021 (08) Stacey.MOP Orig Print D/T: S: 12/05/2021 (0830) [facility] NAME: ALBA KAUR [id number] PHYS: [place] [address] : 1945 AGE: 76 SEX: F LOC: Tammy Long PHONE #: [phone] EXAM DATE: 12/05/2021 STATUS: ADM IN FAX #: [phone] RADIOLOGY NO:PAGE 1 Signed ReportBASIC METABOLIC [id number] 06:11:00* Test Item Value Reference Range Interpretation Comme nts SODIUM (test code = NA) 138 MMOL/L 137-145 N POTASSIUM (test code = K) 3.3 MMOL/L 3.5-5.1 L CHLORIDE (test code = CL) 104 MMOL/L 98-107 N CARBON DIOXIDE (test code = CO2) 30 MMOL/L 22-30 N ANION GAP (test code = GAP) 7 MMOL/L 14-24 L GLUCOSE (test code = GLU) 149 MG/DL 74-106 H BLOOD UREA NITROGEN (test code = BUN) 6 MG/DL 7-17 L GLOMERULAR FILTRATION RATE (test code = GFR) > 60 Reporting units: ml/min/1.73 m2 (Modified MDRD Formula)Reference Range: > or = 60 ml/min/1.73 m2 CREATININE (test code = CREAT) 0.60 MG/DL 0.52-1.04 N CALCIUM (test code = CA) 8.7 MG/DL 8.4-10.2 N [id number] 06:11:00* Test Item Value Reference Range Interpretation Comme nts MAGNESIUM (test code = MAG) 1.7 MG/DL 1.6-2.3 N CBC W/AUTO [id number] 05:57:00* Test Item Value Reference Range Interpretation Comme nts WHITE BLOOD CELL (test code = WBC) 12.1 K/MM3 3.8-9.8 H RED BLOOD CELL (test code = RBC) 3.41 M/MM3 3.58-4.97 L HEMOGLOBIN (test code = HGB) 9.8 G/DL 11.2-14.9 L HEMATOCRIT (test code = HCT) 30.9 % 33.2-43.5 L MEAN CELL VOLUME (test code = MCV) 91 fL 80.7-99.1 N MEAN CELL HGB (test code = MCH) 28.7 pg 27.0-34.1 N MEAN CELL HGB CONCETRATION (test code = MCHC) 31.7 % 32.2-35.7 L RED CELL DISTRIBUTION WIDTH (test code = RDW) 13.0 % 12.1-15.2 N PLATELET COUNT (test code = PLT) 233 K/MM3 129-368 MEAN PLATELET VOLUME (test c ode = MPV) 10.5 fl 7.4-10.4 H NEUTROPHIL % (test code = NT%) 76.9 % 43-75 H IMMATURE GRANULOCYTE % (test code = IG%) 0.2 % 0.0-2.0 N LYMPHOCYTE % (test code = LY%) 14.3 % 14-44 N MONOCYTE % (test code = MO%) 8.2 % 4-13 N EOSINOPHIL % (test code = EO%) 0.2 % 0-6 N BASOPHIL % (test code = BA%) 0.2 % 0-2 N NUCLEATED RBC % (test code = NRBC%) 0.0 % 0-1.0 N NEUTROPHIL # (test code = NT#) 9.30 K/mm3 2.0-7.6 H IMMATURE GRANULOCYTE # (test code = IG#) 0.03 x10 3/uL 0-0.03 N LYMPHOCYTE # (test code = LY#) 1.74 K/mm3 1.0-3.8 N MONOCYTE # (test code = MO#) 1.00 K/mm3 0.1-0.8 H EOSINOPHIL # (test code = EO#) 0.03 K/mm3 0.0-0.2 N BASOPHIL # (test code = BA#) 0.03 K/mm3 0.0-0.2 N NUCLEATED RBC # (test code = NRBC#) 0.00 K/mm3 0.0-0.1 N GLUCOSE BEDSIDE [id number] 16:50:00* Test Item Value Reference Range Interpretation Comme [facility] GLUCOSE BEDSIDE TESTING (emanuel t code = GLUBED) 260 MG/DL 60-99 H ARTERIAL BLOOD [id number] 16:31:00* Test Item Value Reference Range Interpretation Comme [facility] ARTERIAL BLOOD GAS PH (test code = PHA) 7.37 mmHg 7.35-7.45 N ARTERIAL BLOOD GAS PCO2 (test code = PCO2A) 44.5 mmHg 35.0-45.0 N ARTERIAL BLOOD GAS PO2 (test code = PO2A) 74.4 mmol/L 80.0-100.0 L BICARBONATE TOTAL HCO3 (test code = HCO3) 25.1 mmol/L 20.0-26.0 N BASE EXCESS (test code = BRICE) -0.5 mmol/L -3.0-3.0 N ABG O2 SATURATION (test code = SATA) 94.5 % 95.0-100.0 L PCO2 < 5 mmHg ABG DELIVERY (test code = LETICIA) N/C ABG TEMPERATURE (test code = TEMPA) 37.0 C See_Comment [Automated messa ge] The system which generated this result transmitted reference range: 37. The reference range was not used to interpret this result as normal/abnormal. ABG SITE (test code = SITEA) LINE ALLENS TEST (test code = ALLENS) NA CHECK FIO2 (test code = COHBGFFIO2) 32 % BASIC METABOLIC [id number] 14:02:00* Test Item Value Reference Range Interpretation Comme nts SODIUM (test code = NA) 138 MMOL/L 137-145 N POTASSIUM (test code = K) 3.5 MMOL/L 3.5-5.1 N CHLORIDE (test code = CL) 106 MMOL/L 98-107 N CARBON DIOXIDE (test code = CO2) 27 MMOL/L 22-30 N GLUCOSE (test code = GLU) 222 MG/DL 74-106 H BLOOD UREA NITROGEN (test code = BUN) 9 MG/DL 7-17 N GLOMERULAR FILTRATION RATE (test code = GFR) > 60 Reporting units: ml/min/1.73 m2 (Modified MDRD Formula)Reference Range: > or = 60 ml/min/1.73 m2 CREATININE (test code = CREAT) 0.60 MG/DL 0.52-1.04 N CALCIUM (test code = CA) 8.0 MG/DL 8.4-10.2 L [id number] 14:02:00* Test Item Value Reference Range Interpretation Comme nts MAGNESIUM (test code = MAG) 1.8 MG/DL 1.6-2.3 N CBC W/AUTO [id number] 13:26:00* Test Item Value Reference Range Interpretation Comme nts WHITE BLOOD CELL (test code = WBC) 8.5 K/MM3 3.8-9.8 N RED BLOOD CELL (test code = RBC) 3.15 M/MM3 3.58-4.97 L HEMOGLOBIN (test code = HGB) 9.0 G/DL 11.2-14.9 L HEMATOCRIT (test code = HCT) 28.8 % 33.2-43.5 L MEAN CELL VOLUME (test code = MCV) 91 fL 80.7-99.1 N MEAN CELL HGB (test code = MCH) 28.6 pg 27.0-34.1 N MEAN CELL HGB CONCETRATION (test code = MCHC) 31.3 % 32.2-35.7 L RED CELL DISTRIBUTION WIDTH (test code = RDW) 13.1 % 12.1-15.2 N PLATELET COUNT (test code = PLT) 194 K/MM3 129-368 N MEAN PLATELET VOLUME (test c ode = MPV) 10.7 fl 7.4-10.4 H NEUTROPHIL % (test code = NT%) 79.3 % 43-75 H IMMATURE GRANULOCYTE % (test code = IG%) 0.4 % 0.0-2.0 N LYMPHOCYTE % (test code = LY%) 11.4 % 14-44 L MONOCYTE % (test code = MO%) 8.3 % 4-13 N EOSINOPHIL % (test code = EO%) 0.4 % 0-6 N BASOPHIL % (test code = BA%) 0.2 % 0-2 N NUCLEATED RBC % (test code = NRBC%) 0.2 % 0-1.0 N NEUTROPHIL # (test code = NT#) 6.73 K/mm3 2.0-7.6 N IMMATURE GRANULOCYTE # (test code = IG#) 0.03 x10 3/uL 0-0.03 N LYMPHOCYTE # (test code = LY#) 0.97 K/mm3 1.0-3.8 L MONOCYTE # (test code = MO#) 0.70 K/mm3 0.1-0.8 N EOSINOPHIL # (test code = EO#) 0.03 K/mm3 0.0-0.2 N BASOPHIL # (test code = BA#) 0.02 K/mm3 0.0-0.2 N NUCLEATED RBC # (test code = NRBC#) 0.02 K/mm3 0.0-0.1 N - XR CHEST [id number] 11:25:00 [facility] 1945 Sex: F Patient Name: ALBA KAUR Unit No: [id number] EXAMS: CPT CODE: [id number] XR CHEST 1V 97355 B2EXAM: - XR CHEST 1V DATE: 12/04/2021 10:55 AM HISTORY: post op surgery COMPARISON: Chest x-ray 12/03/2021 FINDINGS: No airspace consolidation or pleural effusions. Diffuse interstitial opacities in both lungs. No pneumothorax. The cardiovascular silhouette is within normal limits. Right subclavian central venous line ending in the distal SVC. No bony lesions. IMPRESSION: Diffuse interstitial opacities in both lungs likely due to pulmonary edema. at 1125 Reported and signed by: Hansa Ramos MD CC: Skinny Cantu Technologist: SULTANA Boone, RT(R) Transcrpt Date/Tm/Trnsp: 12/04/2021 (1125) t.THANIAR.MOP Orig Print D/T: S: 12/04/2021 (1128) [facility] NAME: ALBA KAUR [id number] PHYS: [place] [address] : 1945 AGE: 76 SEX: F LOC: Z.CTS PHONE #: [phone] EXAM DATE: 12/04/2021 STATUS: DEP CLI FAX #: [phone] RADIOLOGY NO: PAGE 1 Signed ReportGLUCOSE BEDSIDE [id number] 07:33:00* Test Item Value Reference Range Interpretation Comme nts GLUCOSE BEDSIDE TESTING (emanuel t code = GLUBED) 159 MG/DL 60-99 H - CTA ABD PEL W [id number] 15:08:00 [facility] : 1945 Sex: F Patient Name: ALBA KAUR Unit No: [id number] EXAMS: CPT CODE: [id number] CTA ABD PEL W CONT 83704 EXAMINATION: - CTA ABD PEL W CONT. LOCATION: B2. HISTORY: INFRARENAL ABDOMINAL AORTIC ANEURYSM.COMPARISON: None. TECHNIQUE: CTA abdomen and pelvis was [...] bilateral common iliac, internal iliac, and external iliacarteries without significant stenosis. Calcific plaques are seen in bilateral common femoral and proximal superficial femoral arteries. There are 2 areas of high-grade stenosis within the right common femoral artery. OTHER FINDINGS: Examination of the lower chest demonstrates no significant abnormality. 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 1.7 cm right superior renal cyst is present. The liver, gallbladder, pancreas, spleen, and bilateral adrenal glands appear within normal limits. There is no evidence of bowel obstruction. Examination of the pelvis demonstrates no significant abnormality. There are remote fractures of bilateral inferior pubicrami. Severe cystic degenerative changes are seen in the left femoroacetabular joint. No acute osseo us abnormality is identified. No aggressive lytic or blastic lesions are seen. 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 There is no evidence of aneurysm. Distal infrarenal aortic stenosis proximal to the aortic bifurcation with luminal diameter of 0.9 cm. Two focal areas of high grade stenosis within the right common femoral artery. at 1508 Reported and signed by: Charis Aiken MD CC: Skinny Cantu Technologist: Brandon Bragg, RT(R); Amand CTDI: DLP: Trnscrpt: 12/03/2021 (1508) t.SDR.PR7 [facility] NAME: ALBA KAUR [id number] PHYS: [place] [address] : 1945 AGE: 76 SEX: F LOC: REHANA PHONE #: [phone] EXAM DATE: 12/03/2021 STATUS: REG CLI FAX #: [phone] RAD #: D/C DT PAGE 2 Signed Report Patient Name: ALBA KAUR Unit No: [id number] EXAMS: CPT CODE: [id number] CTA ABD PEL W CONT 72182 (Continued) Orig Print D/T: S: 12/03/2021 (1512) [facility] NAME: ALBA KAUR [id number] PHYS: [place] [address] : 1945 AGE: 76 SEX: F LOC: REHANA PHONE #: [phone] EXAM DATE: 12/03/2021 STATUS: REG CLI FAX #: [phone] RAD #: D/C DT PAGE 3 Signed Report- XR CHEST 2 [id number] 15:02:00 [facility] : 1945 Sex: F Patient Name: ALBA KAUR Unit No: [id number] EXAMS: CPT CODE: [id number] XR CHEST 2 V 83497 EXAM: - XR CHEST 2 V INDICATION: PREOP T18 TECHNIQUE: Frontal and lateral views of the chest. FINDINGS: Lungs appear clear. Cardiomediastinal silhouette appears unremarkable. No pleural effusion seen. Osseous structures appear unremarkable. IMPRESSION: No acute cardiopulmonary process seen. Electr onically Signed by Jarod Galdamez MD on 12/03/2021 at 1502 Reported and signed by: Jarod Galdamez MD CC: Skinny Cantu Technologist: SULTANA Boone, RT(R) Transcrpt Date/Tm/Trnsp: 12/03/2021 (352) MandyAH26 Orig Print D/T: S: 12/03/2021 (8290) [facility] NAME: ALBA KAUR [id number] PHYS: [place] [address] : 1945 AGE: 76 SEX: F LOC: Z.5MU PHONE #: [phone] EXAM DATE: 12/03/2021 STATUS: PRE IN FAX #: [phone] RADIOLOGY NO: PAGE 1 Signed ReportHIV 12 AB [id number] 13:57:00* Test Item Value Reference Range Interpretation Comme nts HIV 1 2 COMBO AG/AB SCREEN (test code = [id number]) AB/AG NON REACTIVE NONREACTIVE BASIC METABOLIC [id number] 13:19:00* Test Item Value Reference Range Interpretation Comme nts SODIUM (test code = NA) 142 MMOL/L 137-145 N POTASSIUM (test code = K) 4.0 MMOL/L 3.5-5.1 N CHLORIDE (test code = CL) 104 MMOL/L 98-107 N CARBON DIOXIDE (test code = CO2) 28 MMOL/L 22-30 N GLUCOSE (test code = GLU) 181 MG/DL 74-106 H BLOOD UREA NITROGEN (test code = BUN) 13 MG/DL 7-17 N GLOMERULAR FILTRATION RATE (test code = GFR) > 60 Reporting units: ml/min/1.73 m2 (Modified MDRD Formula)Reference Range: > or = 60 ml/min/1.73 m2 CREATININE (test code = CREAT) 0.80 MG/DL 0.52-1.04 N CALCIUM (test code = CA) 9.3 MG/DL 8.4-10.2 N PROTHROMBIN [id number] 12:58:00* Test Item Value Reference Range Interpretation Comme nts PROTHROMBIN TIME PATIENT (test code = PTP) 10.7 SECONDS 9.4-12.7 N INTERNATIONAL NORMAL RATIO (test code = INR) 1.0 0.86-1.14 N The INR is to be used only for monitoring oral anticoagulanttherap y. INDICATION INR VALUE -------1. Prophylaxis, deep venous thrombosis, including high risk surgery. 2.0 - 3.0 2. Prophylaxis, deep venous thrombosis, hip surgery, treatment for deep venous thrombosis or pulmonary prevention of systemic embolism in patients with valvular heart disease, atrial fibrillation, tissue heart valve, or acute myocardial infarction. 2.0 - 3.0 3. Mechanical prosthesis heart valves, recurrent systemic embolism. 3.0 - 4.5 PTT [id number] 12:58:00* Test Item Value Reference Range Interpretation Comme nts PTT ACTIVATED (test code = APTT) 31.2 SECONDS 26.2-35.4 N CBC W/AUTO [id number] 12:46:00* Test Item Value Reference Range Interpretation Comme nts WHITE BLOOD CELL (test code = WBC) 8.7 K/MM3 3.8-9.8 N RED BLOOD CELL (test code = RBC) 3.63 M/MM3 3.58-4.97 N HEMOGLOBIN (test code = HGB) 10.5 G/DL 11.2-14.9 L HEMATOCRIT (test code = HCT) 33.6 % 33.2-43.5 N MEAN CELL VOLUME (test code = MCV) 93 fL 80.7-99.1 N MEAN CELL HGB (test code = MCH) 28.9 pg 27.0-34.1 N MEAN CELL HGB CONCETRATION (test code = MCHC) 31.3 % 32.2-35.7 L RED CELL DISTRIBUTION WIDTH (test code = RDW) 12.9 % 12.1-15.2 N PLATELET COUNT (test code = PLT) 240 K/MM3 129-368 N MEAN PLATELET VOLUME (test c ode = MPV) 10.7 fl 7.4-10.4 H NEUTROPHIL % (test code = NT%) 66.4 % 43-75 N IMMATURE GRANULOCYTE % (test code = IG%) 0.2 % 0.0-2.0 N LYMPHOCYTE % (test code = LY%) 22.5 % 14-44 N MONOCYTE % (test code = MO%) 9.6 % 4-13 N EOSINOPHIL % (test code = EO%) 1.0 % 0-6 N BASOPHIL % (test code = BA%) 0.3 % 0-2 N NUCLEATED RBC % (test code = NRBC%) 0.0 % 0-1.0 N NEUTROPHIL # (test code = NT#) 5.77 K/mm3 2.0-7.6 N IMMATURE GRANULOCYTE # (test code = IG#) 0.02 x10 3/uL 0-0.03 N LYMPHOCYTE # (test code = LY#) 1.96 K/mm3 1.0-3.8 N MONOCYTE # (test code = MO#) 0.84 K/mm3 0.1-0.8 H EOSINOPHIL # (test code = EO#) 0.09 K/mm3 0.0-0.2 N BASOPHIL # (test code = BA#) 0.03 K/mm3 0.0-0.2 N NUCLEATED RBC # (test code = NRBC#) 0.00 K/mm3 0.0-0.1 N [id number] 15:54:00* Test Item Value Reference Range Interpretation Comme nts SURGICAL (test code = SR) RUN DATE: 10/30/21 [facility] PAGE 1 RUN TIME: 1554 Specimen Inquiry RUN USER: INTERFACE PATIENT: ALBA KAUR LOC: TORSTEN U #: [id number] AGE/SX: 76/F ROOM: VIKRAM RE10/26/21REG DR: Ady Ventura MD : [birth year] BED: A DIS: 10/29/21 STATUS: DIS IN TLOC: SPEC #: [id number] RECD: 10/29/21 STATUS: CLARISSA REArvin #: [id number] RACHEL: 10/26/[address]: Ady Ventura MD ENTERED: 10/29/21 SP TYPE: SURGICAL OTHR DR: Self Referred Rigo Skinner MD, Larry MD Nevers, Steven MD R2 Skinny Cantu MDORDERED: 87927, 08432, ANATOMIC SPEC, SPECIMEN TRACK COPIES TO: [place] [address] [place] [address] Sesar Steele MD [address] [place] [address] [place] [address] [facility] [address] [place] [address] Christos Harry MD R2 [address] [place] [address] [place] [address] [facility] [address] [place], [place] [address] PROCEDURES: 90546 (10/29/21) 11229 (10/30/21-1552) SPECIMEN TRACK (10/29/21) TISSUES: A. PLAQUE ATHEROMATOUS/FIBROUS/FIBRO FATTY - RIGHT CAROTID PLAQUE CONTINUED ON NEXT PAGE RUN DATE: 10/30/21 [facility] - LAB PAGE 2 RUN TIME: 1554 Specimen Inquiry RUN USER: INTERFACE SPEC #: [id number] PATIENT: ALBA KAUR Eric #[id number] (Continued) FINAL DIAGNOSIS CAROTID ARTERY, RIGHT, ENDARTERECTOMY: - Thickened intima with degenerative changes and calcifications. GROSS DESCRIPTION Right carotid plaque. It consists of segment of yellow desai calcified plaque measures 3.8x 1 x 1 cm. Section is submitted for decalcification as A1. Technical component performed at [facility],[id number] , [place] [address] MICROSCOPIC DESCRIPTION Microscopic examination is performed and the findings are incorporated into the finaldiagnosis. Please see diagnosis for the findings. Signed SIGNATURE ON FILE Stuart Wilson 10/30/21 1554 END OF REPORT GLUCOSE BEDSIDE [id number] 11:39:00* Test Item Value Reference Range Interpretation Comme nts GLUCOSE BEDSIDE TESTING (emanuel t code = GLUBED) 152 MG/DL 60-99 H GLUCOSE BEDSIDE [id number] 11:31:00* Test Item Value Reference Range Interpretation Comme nts GLUCOSE BEDSIDE TESTING (emanuel t code = GLUBED) 151 MG/DL 60-99 H GLUCOSE BEDSIDE [id number] 08:03:00* Test Item Value Reference Range Interpretation Comme nts GLUCOSE BEDSIDE TESTING (emanuel t code = GLUBED) 217 MG/DL 60-99 H GLUCOSE BEDSIDE [id number] 06:29:00* Test Item Value Reference Range Interpretation Comme nts GLUCOSE BEDSIDE TESTING (emanuel t code = GLUBED) 173 MG/DL 60-99 H CBC W/AUTO [id number] 05:12:00* Test Item Value Reference Range Interpretation Comme nts WHITE BLOOD CELL (test code = WBC) 12.6 K/MM3 3.8-9.8 H RED BLOOD CELL (test code = RBC) 3.54 M/MM3 3.58-4.97 L HEMOGLOBIN (test code = HGB) 10.5 G/DL 11.2-14.9 L HEMATOCRIT (test code = HCT) 32.6 % 33.2-43.5 L MEAN CELL VOLUME (test code = MCV) 92 fL 80.7-99.1 N MEAN CELL HGB (test code = MCH) 29.7 pg 27.0-34.1 N MEAN CELL HGB CONCETRATION (test code = MCHC) 32.2 % 32.2-35.7 N RED CELL DISTRIBUTION WIDTH (test code = RDW) 13.1 % 12.1-15.2 N PLATELET COUNT (test code = PLT) 189 K/MM3 129-368 N MEAN PLATELET VOLUME (test c ode = MPV) 10.5 fl 7.4-10.4 H NEUTROPHIL % (test code = NT%) 77.0 % 43-75 H IMMATURE GRANULOCYTE % (test code = IG%) 0.6 % 0.0-2.0 N LYMPHOCYTE % (test code = LY%) 10.9 % 14-44 L MONOCYTE % (test code = MO%) 11.2 % 4-13 N EOSINOPHIL % (test code = EO%) 0.1 % 0-6 N BASOPHIL % (test code = BA%) 0.2 % 0-2 N NUCLEATED RBC % (test code = NRBC%) 0.0 % 0-1.0 N NEUTROPHIL # (test code = NT#) 9.71 K/mm3 2.0-7.6 H IMMATURE GRANULOCYTE # (test code = IG#) 0.08 x10 3/uL 0-0.03 H LYMPHOCYTE # (test code = LY#) 1.37 K/mm3 1.0-3.8 N MONOCYTE # (test code = MO#) 1.41 K/mm3 0.1-0.8 H EOSINOPHIL # (test code = EO#) 0.01 K/mm3 0.0-0.2 N BASOPHIL # (test code = BA#) 0.03 K/mm3 0.0-0.2 N NUCLEATED RBC # (test code = NRBC#) 0.00 K/mm3 0.0-0.1 N GLUCOSE BEDSIDE [id number] 19:57:00* Test Item Value Reference Range Interpretation Comme nts GLUCOSE BEDSIDE TESTING (emanuel t code = GLUBED) 139 MG/DL 60-99 H GLUCOSE BEDSIDE [id number] 15:50:00* Test Item Value Reference Range Interpretation Comme nts GLUCOSE BEDSIDE TESTING (emanuel t code = GLUBED) 182 MG/DL 60-99 H GLUCOSE BEDSIDE [id number] 12:10:00* Test Item Value Reference Range Interpretation Comme nts GLUCOSE BEDSIDE TESTING (emanuel t code = GLUBED) 179 MG/DL 60-99 H BASIC METABOLIC [id number] 09:13:00* Test Item Value Reference Range Interpretation Comme nts SODIUM (test code = NA) 139 MMOL/L 137-145 N POTASSIUM (test code = K) 3.7 MMOL/L 3.5-5.1 N CHLORIDE (test code = CL) 103 MMOL/L 98-107 N CARBON DIOXIDE (test code = CO2) 31 MMOL/L 22-30 H ANION GAP (test code = GAP) 9 MMOL/L 14-24 L GLUCOSE (test code = GLU) 186 MG/DL 74-106 H BLOOD UREA NITROGEN (test code = BUN) 13 MG/DL 7-17 N GLOMERULAR FILTRATION RATE (test code = GFR) > 60 Reporting units: ml/min/1.73 m2 (Modified MDRD Formula)Reference Range: > or = 60 ml/min/1.73 m2 CREATININE (test code = CREAT) 0.60 MG/DL 0.52-1.04 N CALCIUM (test code = CA) 8.5 MG/DL 8.4-10.2 N CBC W/AUTO [id number] 08:45:00* Test Item Value Reference Range Interpretation Comme nts WHITE BLOOD CELL (test code = WBC) 14.1 K/MM3 3.8-9.8 H RED BLOOD CELL (test code = RBC) 3.40 M/MM3 3.58-4.97 L HEMOGLOBIN (test code = HGB) 10.0 G/DL 11.2-14.9 L HEMATOCRIT (test code = HCT) 31.3 % 33.2-43.5 L MEAN CELL VOLUME (test code = MCV) 92 fL 80.7-99.1 N MEAN CELL HGB (test code = MCH) 29.4 pg 27.0-34.1 N MEAN CELL HGB CONCETRATION (test code = MCHC) 31.9 % 32.2-35.7 L RED CELL DISTRIBUTION WIDTH (test code = RDW) 13.5 % 12.1-15.2 N PLATELET COUNT (test code = PLT) 203 K/MM3 129-368 N MEAN PLATELET VOLUME (test c ode = MPV) 10.3 fl 7.4-10.4 N NEUTROPHIL % (test code = NT%) 77.9 % 43-75 H IMMATURE GRANULOCYTE % (test code = IG%) 0.4 % 0.0-2.0 N LYMPHOCYTE % (test code = LY%) 13.1 % 14-44 L MONOCYTE % (test code = MO%) 8.3 % 4-13 N EOSINOPHIL % (test code = EO%) 0.1 % 0-6 N BASOPHIL % (test code = BA%) 0.2 % 0-2 N NUCLEATED RBC % (test code = NRBC%) 0.0 % 0-1.0 N NEUTROPHIL # (test code = NT#) 10.97 K/mm3 2.0-7.6 H IMMATURE GRANULOCYTE # (test code = IG#) 0.06 x10 3/uL 0-0.03 H LYMPHOCYTE # (test code = LY#) 1.84 K/mm3 1.0-3.8 N MONOCYTE # (test code = MO#) 1.17 K/mm3 0.1-0.8 H EOSINOPHIL # (test code = EO#) 0.01 K/mm3 0.0-0.2 N BASOPHIL # (test code = BA#) 0.03 K/mm3 0.0-0.2 N NUCLEATED RBC # (test code = NRBC#) 0.00 K/mm3 0.0-0.1 N GLUCOSE BEDSIDE [id number] 07:34:00* Test Item Value Reference Range Interpretation Comme nts GLUCOSE BEDSIDE TESTING (emanuel t code = GLUBED) 151 MG/DL 60-99 H GLUCOSE BEDSIDE [id number] 19:45:00* Test Item Value Reference Range Interpretation Comme nts GLUCOSE BEDSIDE TESTING (emanuel t code = GLUBED) 167 MG/DL 60-99 H GLUCOSE BEDSIDE [id number] 15:40:00* Test Item Value Reference Range Interpretation Comme nts GLUCOSE BEDSIDE TESTING (emanuel t code = GLUBED) 141 MG/DL 60-99 H GLUCOSE BEDSIDE [id number] 11:25:00* Test Item Value Reference Range Interpretation Comme nts GLUCOSE BEDSIDE TESTING (emanuel t code = GLUBED) 147 MG/DL 60-99 H GLUCOSE BEDSIDE [id number] 07:53:00* Test Item Value Reference Range Interpretation Comme nts GLUCOSE BEDSIDE TESTING (emanuel t code = GLUBED) 214 MG/DL 60-99 H - XR CHEST [id number] 06:51:00 [facility] 1945 Sex: F Patient Name: ALBA KAUR Unit No: [id number] EXAMS: CPT CODE: [id number] XR CHEST 1V 94154 Location code: H49 Chest 1 view Indication: s/p line placement. Comparison: CXR 10/26/2021 Findings: Surgical clips in the right neck. Drain is in place. Right subclavian central venous catheter tip projects over the mid superior vena cava. The heart and mediastinum are unremarkable. Low lung volumes with mild bronchovascular crowding... Costophrenic angles are clear. Lungs are clear. Bone is unremarkable for age. Impression: 1. Low lung volumes with mild bronchovascular crowding. Otherwise, no radiographic evidence of acute cardiopulmonary disease. at 0651 Reported and signed by: Gabriela Tolentino MD CC: Hardik Cantu Technologist: Bola Moyer (RT) Transcrpt Date/Tm/Trnsp: 10/27/2021 (0651) t.[email or web address] Orig Print D/T: S: 10/27/2021 (0654) [facility] NAME: ALBA KAUR [id number] PHYS: [place] [address] : 1945 AGE: 76 SEX: F LOC: Z.SI04 APHONE #: [phone] EXAM DATE: 10/27/2021 STATUS: ADM IN FAX #: [phone] RADIOLOGY NO: PAGE 1 Signed ReportBASIC METABOLIC [id number] 05:02:00* Test Item Value Reference Range Interpretation Comme nts SODIUM (test code = NA) 136 MMOL/L 137-145 L POTASSIUM (test code = K) 4.3 MMOL/L 3.5-5.1 N CHLORIDE (test code = CL) 103 MMOL/L 98-107 N CARBON DIOXIDE (test code = CO2) 27 MMOL/L 22-30 N ANION GAP (test code = GAP) 10 MMOL/L 14-24 L GLUCOSE (test code = GLU) 214 MG/DL 74-106 H BLOOD UREA NITROGEN (test code = BUN) 11 MG/DL 7-17 N GLOMERULAR FILTRATION RATE (test code = GFR) > 60 Reporting units: ml/min/1.73 m2 (Modified MDRD Formula)Reference Range: > or = 60 ml/min/1.73 m2 CREATININE (test code = CREAT) 0.60 MG/DL 0.52-1.04 N CALCIUM (test code = CA) 8.3 MG/DL 8.4-10.2 L [id number] 05:02:00* Test Item Value Reference Range Interpretation Comme nts MAGNESIUM (test code = MAG) 1.6 MG/DL 1.6-2.3 N CBC W/AUTO [id number] 04:40:00* Test Item Value Reference Range Interpretation Comme nts WHITE BLOOD CELL (test code = WBC) 11.5 K/MM3 3.8-9.8 H RED BLOOD CELL (test code = RBC) 3.60 M/MM3 3.58-4.97 N HEMOGLOBIN (test code = HGB) 10.6 G/DL 11.2-14.9 L HEMATOCRIT (test code = HCT) 32.5 % 33.2-43.5 L MEAN CELL VOLUME (test code = MCV) 90 fL 80.7-99.1 N MEAN CELL HGB (test code = MCH) 29.4 pg 27.0-34.1 N MEAN CELL HGB CONCETRATION (test code = MCHC) 32.6 % 32.2-35.7 N RED CELL DISTRIBUTION WIDTH (test code = RDW) 13.2 % 12.1-15.2 N PLATELET COUNT (test code = PLT) 192 K/MM3 129-368 N MEAN PLATELET VOLUME (test c ode = MPV) 9.9 fl 7.4-10.4 N NEUTROPHIL % (test code = NT%) 91.8 % 43-75 H IMMATURE GRANULOCYTE % (test code = IG%) 0.3 % 0.0-2.0 N LYMPHOCYTE % (test code = LY%) 6.3 % 14-44 L MONOCYTE % (test code = MO%) 1.6 % 4-13 L EOSINOPHIL % (test code = EO%) 0.0 % 0-6 N BASOPHIL % (test code = BA%) 0 % 0-2 N NUCLEATED RBC % (test code = NRBC%) 0.0 % 0-1.0 N NEUTROPHIL # (test code = NT#) 10.57 K/mm3 2.0-7.6 H IMMATURE GRANULOCYTE # (test code = IG#) 0.03 x10 3/uL 0-0.03 N LYMPHOCYTE # (test code = LY#) 0.72 K/mm3 1.0-3.8 L MONOCYTE # (test code = MO#) 0.18 K/mm3 0.1-0.8 N EOSINOPHIL # (test code = EO#) 0.00 K/mm3 0.0-0.2 N BASOPHIL # (test code = BA#) 0 K/mm3 0.0-0.2 N NUCLEATED RBC # (test code = NRBC#) 0.00 K/mm3 0.0-0.1 N ARTERIAL BLOOD [id number] 00:24:00* Test Item Value Reference Range Interpretation Comme nts ARTERIAL BLOOD GAS PH (test code = PHA) 7.29 mmHg 7.35-7.45 LL ARTERIAL BLOOD GAS PCO2 (test code = PCO2A) 46.2 mmHg 35.0-45.0 H ARTERIAL BLOOD GAS PO2 (test code = PO2A) 64.6 mmol/L 80.0-100.0 L BICARBONATE TOTAL HCO3 (test code = HCO3) 21.5 mmol/L 20.0-26.0 N BASE EXCESS (test code = BRICE) -5.3 mmol/L -3.0-3.0 L ABG O2 SATURATION (test code = SATA) 90.1 % 95.0-100.0 L All critical values report to and readback by ANABELL Candelario by FREDERICK at 10/26/2021 8:59:23 PM ABG DELIVERY (test code = LETICIA) N/C ABG TEMPERATURE (test code = TEMPA) 37.0 C See_Comment [Automated messa ge] The system which generated this result transmitted reference range: 37. The reference range was not used to interpret this result as normal/abnormal. ABG SITE (test code = SITEA) AL ALLENS TEST (test code = ALLENS) NA CHECK FIO2 (test code = COHBGFFIO2) 36 % ARTERIAL BLOOD [id number] 22:13:00* Test Item Value Reference Range Interpretation Comme [facility] ARTERIAL BLOOD GAS PH (test code = PHA) 7.33 mmHg 7.35-7.45 L ARTERIAL BLOOD GAS PCO2 (test code = PCO2A) 49.7 mmHg 35.0-45.0 H ARTERIAL BLOOD GAS PO2 (test code = PO2A) 63.5 mmol/L 80.0-100.0 L BICARBONATE TOTAL HCO3 (test code = HCO3) 25.4 mmol/L 20.0-26.0 N BASE EXCESS (test code = BRICE) -1.2 mmol/L -3.0-3.0 N ABG O2 SATURATION (test code = SATA) 90.5 % 95.0-100.0 L ABG DELIVERY (test code = LETICIA) VENTIMSK ABG TEMPERATURE (test code = TEMPA) 37.0 C See_Comment [Automated messa ge] The system which generated this result transmitted reference range: 37. The reference range was not used to interpret this result as normal/abnormal. ABG SITE (test code = SITEA) AL ALLENS TEST (test code = ALLENS) NA CHECK FIO2 (test code = COHBGFFIO2) 50 % GLUCOSE BEDSIDE [id number] 21:02:00* Test Item Value Reference Range Interpretation Comme [facility] GLUCOSE BEDSIDE TESTING (emanuel t code = GLUBED) 223 MG/DL 60-99 H ARTERIAL BLOOD [id number] 20:34:00* Test Item Value Reference Range Interpretation Comme [facility] ARTERIAL BLOOD GAS PH (test code = PHA) 7.26 mmHg 7.35-7.45 LL ARTERIAL BLOOD GAS PCO2 (test code = PCO2A) 48.4 mmHg 35.0-45.0 H ARTERIAL BLOOD GAS PO2 (test code = PO2A) 79.1 mmol/L 80.0-100.0 L BICARBONATE TOTAL HCO3 (test code = HCO3) 21.4 mmol/L 20.0-26.0 N BASE EXCESS (test code = BRICE) -5.9 mmol/L -3.0-3.0 L ABG O2 SATURATION (test code = SATA) 93.9 % 95.0-100.0 L All critical values report to and readback by ANABELL CANDELARIO by ANURAG at 10/26/2021 8:06:41 PM ABG L/M (test code = L/M) 6 L/MIN ABG DELIVERY (test code = LETICIA) SMASK ABG TEMPERATURE (test code = TEMPA) 37.0 C See_Comment [Automated messa ge] The system which generated this result transmitted reference range: 37. The reference range was not used to interpret this result as normal/abnormal. ABG SITE (test code = SITEA) AL ALLENS TEST (test code = ALLENS) NA CHECK FIO2 (test code = COHBGFFIO2) 42 % BASIC METABOLIC [id number] 20:10:00* Test Item Value Reference Range Interpretation Comme nts SODIUM (test code = NA) 141 MMOL/L 137-145 N POTASSIUM (test code = K) 4.0 MMOL/L 3.5-5.1 N CHLORIDE (test code = CL) 107 MMOL/L 98-107 N CARBON DIOXIDE (test code = CO2) 26 MMOL/L 22-30 N ANION GAP (test code = GAP) 12 MMOL/L 14-24 L GLUCOSE (test code = GLU) 199 MG/DL 74-106 H BLOOD UREA NITROGEN (test code = BUN) 12 MG/DL 7-17 N GLOMERULAR FILTRATION RATE (test code = GFR) > 60 Reporting units: ml/min/1.73 m2 (Modified MDRD Formula)Reference Range: > or = 60 ml/min/1.73 m2 CREATININE (test code = CREAT) 0.60 MG/DL 0.52-1.04 N CALCIUM (test code = CA) 8.6 MG/DL 8.4-10.2 N [id number] 20:10:00* Test Item Value Reference Range Interpretation Comme nts MAGNESIUM (test code = MAG) 1.6 MG/DL 1.6-2.3 N CBC W/AUTO [id number] 19:56:00* Test Item Value Reference Range Interpretation Comme nts WHITE BLOOD CELL (test code = WBC) 14.6 K/MM3 3.8-9.8 H RED BLOOD CELL (test code = RBC) 3.71 M/MM3 3.58-4.97 N HEMOGLOBIN (test code = HGB) 11.1 G/DL 11.2-14.9 L HEMATOCRIT (test code = HCT) 34.2 % 33.2-43.5 N MEAN CELL VOLUME (test code = MCV) 92 fL 80.7-99.1 N MEAN CELL HGB (test code = MCH) 29.9 pg 27.0-34.1 N MEAN CELL HGB CONCETRATION (test code = MCHC) 32.5 % 32.2-35.7 N RED CELL DISTRIBUTION WIDTH (test code = RDW) 13.2 % 12.1-15.2 N PLATELET COUNT (test code = PLT) 191 K/MM3 129-368 N MEAN PLATELET VOLUME (test c ode = MPV) 10.5 fl 7.4-10.4 H NEUTROPHIL % (test code = NT%) 73.1 % 43-75 N IMMATURE GRANULOCYTE % (test code = IG%) 0.5 % 0.0-2.0 N LYMPHOCYTE % (test code = LY%) 19.3 % 14-44 N MONOCYTE % (test code = MO%) 6.3 % 4-13 N EOSINOPHIL % (test code = EO%) 0.5 % 0-6 N BASOPHIL % (test code = BA%) 0.3 % 0-2 N NUCLEATED RBC % (test code = NRBC%) 0.0 % 0-1.0 N NEUTROPHIL # (test code = NT#) 10.64 K/mm3 2.0-7.6 H IMMATURE GRANULOCYTE # (test code = IG#) 0.08 x10 3/uL 0-0.03 H LYMPHOCYTE # (test code = LY#) 2.82 K/mm3 1.0-3.8 N MONOCYTE # (test code = MO#) 0.92 K/mm3 0.1-0.8 H EOSINOPHIL # (test code = EO#) 0.08 K/mm3 0.0-0.2 N BASOPHIL # (test code = BA#) 0.04 K/mm3 0.0-0.2 N NUCLEATED RBC # (test code = NRBC#) 0.00 K/mm3 0.0-0.1 N - XR CHEST [id number] 19:51:00 [facility] 1945 Sex: F Patient Name: ALBA KAUR Unit No: [id number] EXAMS: CPT CODE: [id number] XR CHEST 1V 89619 Location code: H5 Chest 1 view Indication: s/p line placement. Comparison: None Findings: Surgical clips in the right neck. Drain is in place. Right subclavian central venous catheter tip projects overthe mid superior vena cava. The heart and mediastinum are not remarkable. Costophrenic angles are clear. Lungs are clear. Bone is unremarkable for age. Impression: 1. No radiographic evidence of acute cardiopulmonary disease. 2. Right subclavian central venous catheter tip projects over the mid vena cava. 3. Right neck surgery with drain in place. at 1950 Reported and signed by: Jack Zhao M.D. CC: Skinny Cantu Technologist: Sarika BARBOUR R Transcrpt Date/Tm/Trnsp: 10/26/2021 (1950) [id number] Orig PrintD/T: S: 10/26/2021 (1953) [facility] NAME: ALBA KAUR [id number] [address] PHYS: [place] [address] : 1945 AGE: 76 SEX: F LOC: Z.SI04 A PHONE #: [phone] EXAM DATE: 10/26/2021 STATUS: ADM IN FAX #: [phone] RADIOLOGY NO: PAGE 1 Signed ReportHIV 12 AB [id number] 12:10:00* Test Item Value Reference Range Interpretation Comme [facility] HIV 1 2 COMBO AG/AB SCREEN (test code = ALM03CEIDI) AB/AG NON REACTIVE NONREACTIVE BASIC METABOLIC [id number] 11:29:00* Test Item Value Reference Range Interpretation Comme [facility] SODIUM (test code = NA) 139 MMOL/L 137-145 N POTASSIUM (test code = K) 4.1 MMOL/L 3.5-5.1 N CHLORIDE (test code = CL) 106 MMOL/L 98-107 N CARBON DIOXIDE (test code = CO2) 27 MMOL/L 22-30 N GLUCOSE (test code = GLU) 137 MG/DL 74-106 H BLOOD UREA NITROGEN (test code = BUN) 14 MG/DL 7-17 N GLOMERULAR FILTRATION RATE (test code = GFR) > 60 Reporting units: ml/min/1.73 m2 (Modified MDRD Formula)Reference Range: > or = 60 ml/min/1.73 m2 CREATININE (test code = CREAT) 0.70 MG/DL 0.52-1.04 N CALCIUM (test code = CA) 9.3 MG/DL 8.4-10.2 N PROTHROMBIN [id number] 11:21:00* Test Item Value Reference Range Interpretation [facility] PROTHROMBIN TIME PATIENT (test code = PTP) 11.0 SECONDS 9.4-12.7 N INTERNATIONAL NORMAL RATIO (test code = INR) 1.0 0.86-1.14 N The INR is to be used only for monitoring oral anticoagulanttherap y. INDICATION INR VALUE -------1. Prophylaxis, deep venous thrombosis, including high risk surgery. 2.0 - 3.0 2. Prophylaxis, deep venous thrombosis, hip surgery, treatment for deep venous thrombosis or pulmonary prevention of systemic embolism in patients with valvular heart disease, atrial fibrillation, tissue heart valve, or acute myocardial infarction. 2.0 - 3.0 3. Mechanical prosthesis heart valves, recurrent systemic embolism. 3.0 - 4.5 PTT [id number] 11:21:00* Test Item Value Reference Range Interpretation Comme nts PTT ACTIVATED (test code = APTT) 31.7 SECONDS 26.2-35.4 N CBC W/AUTO [id number] 11:11:00* Test Item Value Reference Range Interpretation Comme nts WHITE BLOOD CELL (test code = WBC) 8.3 K/MM3 3.8-9.8 N RED BLOOD CELL (test code = RBC) 4.09 M/MM3 3.58-4.97 N HEMOGLOBIN (test code = HGB) 12.1 G/DL 11.2-14.9 N HEMATOCRIT (test code = HCT) 37.1 % 33.2-43.5 N MEAN CELL VOLUME (test code = MCV) 91 fL 80.7-99.1 N MEAN CELL HGB (test code = MCH) 29.6 pg 27.0-34.1 N MEAN CELL HGB CONCETRATION (test code = MCHC) 32.6 % 32.2-35.7 N RED CELL DISTRIBUTION WIDTH (test code = RDW) 13.2 % 12.1-15.2 N PLATELET COUNT (test code = PLT) 231 K/MM3 129-368 N MEAN PLATELET VOLUME (test c ode = MPV) 10.3 fl 7.4-10.4 N NEUTROPHIL % (test code = NT%) 69.3 % 43-75 N IMMATURE GRANULOCYTE % (test code = IG%) 0.4 % 0.0-2.0 N LYMPHOCYTE % (test code = LY%) 19.9 % 14-44 N MONOCYTE % (test code = MO%) 9.2 % 4-13 N EOSINOPHIL % (test code = EO%) 0.7 % 0-6 N BASOPHIL % (test code = BA%) 0.5 % 0-2 N NUCLEATED RBC % (test code = NRBC%) 0.0 % 0-1.0 N NEUTROPHIL # (test code = NT#) 5.77 K/mm3 2.0-7.6 N IMMATURE GRANULOCYTE # (test code = IG#) 0.03 x10 3/uL 0-0.03 N LYMPHOCYTE # (test code = LY#) 1.66 K/mm3 1.0-3.8 N MONOCYTE # (test code = MO#) 0.77 K/mm3 0.1-0.8 N EOSINOPHIL # (test code = EO#) 0.06 K/mm3 0.0-0.2 N BASOPHIL # (test code = BA#) 0.04 K/mm3 0.0-0.2 N NUCLEATED RBC # (test code = NRBC#) 0.00 K/mm3 0.0-0.1 N BASIC METABOLIC [id number] 07:12:00* Test Item Value Reference Range Interpretation Comme nts SODIUM (test code = NA) 139 MMOL/L 137-145 N POTASSIUM (test code = K) 4.5 MMOL/L 3.5-5.1 N CHLORIDE (test code = CL) 107 MMOL/L 98-107 N CARBON DIOXIDE (test code = CO2) 26 MMOL/L 22-30 N GLUCOSE (test code = GLU) 146 MG/DL 74-106 H BLOOD UREA NITROGEN (test code = BUN) 10 MG/DL 7-17 N GLOMERULAR FILTRATION RATE (test code = GFR) > 60 Reporting units: ml/min/1.73 m2 (Modified MDRD Formula)Reference Range: > or = 60 ml/min/1.73 m2 CREATININE (test code = CREAT) 0.60 MG/DL 0.52-1.04 N CALCIUM (test code = CA) 9.5 MG/DL 8.4-10.2 N LIPID PROFILE (CORONARY RISK)2021-10-20 07:12:00* Test Item Value Reference Range Interpretation Comme nts TRIGLYCERIDES (test code = TRIG) 355 MG/DL 150-199 H TRIGLYCERIDES REFERENCE RANGE:Normal: <150 mg/dLBorderline High: 150-199 mg/dLHigh: 200-499 mg/dLVery High: >=500 mg/dL CHOLESTEROL (test code = CHOL) 296 MG/DL <200 HDL CHOLESTEROL (test code = HDL) 47 MG/DL 40-59 N LIPOPROTEIN LDL (test code = LDL) 170 MG/DL 0-99 H OPTIMAL......... <100 mg/dLNEAR OPTIMAL/ABOVE OPTIMAL.........100-12 9 mg/dL BORDERLINE HIGH.........130-159 mg/dL HIGH.........160-189 mg/dL VERY HIGH.........>/= 190 mg/dL [id number] 07:12:00* Test Item Value Reference Range Interpretation Comme nts MAGNESIUM (test code = MAG) 2.4 MG/DL 1.6-2.3 H PROTHROMBIN [id number] 06:35:00* Test Item Value Reference Range Interpretation Comme [facility] PROTHROMBIN TIME PATIENT (test code = PTP) 10.0 SECONDS 9.4-12.7 N INTERNATIONAL NORMAL RATIO (test code = INR) 0.9 0.86-1.14 N The INR is to be used only for monitoring oral anticoagulanttherap y. INDICATION INR VALUE -------1. Prophylaxis, deep venous thrombosis, including high risk surgery. 2.0 - 3.0 2. Prophylaxis, deep venous thrombosis, hip surgery, treatment for deep venous thrombosis or pulmonary prevention of systemic embolism in patients with valvular heart disease, atrial fibrillation, tissue heart valve, or acute myocardial infarction. 2.0 - 3.0 3. Mechanical prosthesis heart valves, recurrent systemic embolism. 3.0 - 4.5 PTT [id number] 06:35:00* Test Item Value Reference Range Interpretation [facility] PTT ACTIVATED (test code = APTT) 22.6 SECONDS 26.2-35.4 L CBC W/AUTO [id number] 06:29:00* Test Item Value Reference Range [facility] WH[facility] BLO[facility] CELL (test code = WBC) 8.2 K/MM3 3.8-9.8 N RED BLOOD CELL (test code = RBC) 4.05 M/MM3 3.58-4.97 N HEMOGLOBIN (test code = HGB) 12.0 G/DL 11.2-14.9 N HEMATOCRIT (test code = HCT) 37.5 % 33.2-43.5 N MEAN CELL VOLUME (test code = MCV) 93 fL 80.7-99.1 N MEAN CELL HGB (test code = MCH) 29.6 pg 27.0-34.1 N MEAN CELL HGB CONCETRATION (test code = MCHC) 32.0 % 32.2-35.7 L RED CELL DISTRIBUTION WIDTH (test code = RDW) 13.5 % 12.1-15.2 N PLATELET COUNT (test code = PLT) 223 K/MM3 129-368 N MEAN PLATELET VOLUME (test c ode = MPV) 10.1 fl 7.4-10.4 N NEUTROPHIL % (test code = NT%) 56.6 % 43-75 N IMMATURE GRANULOCYTE % (test code = IG%) 0.5 % 0.0-2.0 N LYMPHOCYTE % (test code = LY%) 31.0 % 14-44 N MONOCYTE % (test code = MO%) 10.6 % 4-13 N EOSINOPHIL % (test code = EO%) 0.9 % 0-6 N BASOPHIL % (test code = BA%) 0.4 % 0-2 N NUCLEATED RBC % (test code = NRBC%) 0.0 % 0-1.0 N NEUTROPHIL # (test code = NT#) 4.63 K/mm3 2.0-7.6 N IMMATURE GRANULOCYTE # (test code = IG#) 0.04 x10 3/uL 0-0.03 H LYMPHOCYTE # (test code = LY#) 2.53 K/mm3 1.0-3.8 N MONOCYTE # (test code = MO#) 0.87 K/mm3 0.1-0.8 H EOSINOPHIL # (test code = EO#) 0.07 K/mm3 0.0-0.2 N BASOPHIL # (test code = BA#) 0.03 K/mm3 0.0-0.2 N NUCLEATED RBC # (test code = NRBC#) 0.00 K/mm3 0.0-0.1 N COVID 19 Asymptomatic IH [id number] 05:22:00* Test Item Value Reference Range Interpretation Comme nts COVID 19 Asymptomatic IH AG (test code = COVNONPUIAG) NEGATIVE Negative "Negative result s from patients with symptom onset beyondfive days, should be treated as presumptive, andconfirmation with a molecular assay, if necessary forpatient management may be performed. Negative results do notrule out COVID-19 and should not be used as the sole basisfor treatment or patient management decisions, includinginfection control decisions. Negative results should beconsidered in the context of a patients recent exposures,history, and the presence of clinical signs and symptomsconsistent with COVID-19.This test detects both viable andnon-viable SARS-CoV and SARS CoV-2.Test performance dependson the amount of virus (antigen) in the sample." HIGH SENSITIVITY [id number] 14:23:00* Test Item Value Reference Range Interpretation Comme nts HS CRP (test code = 0082500965) 0.51 mg/dL <0.74 Lab Interpretation (test cod e = 17203-7) [facility] [id number] 14:23:00* Test Item Value Reference Range Interpretation Comme nts HS CRP (test code = 4252872886) 0.51 mg/dL <0.74 Lab Interpretation (test cod e = 80416-7) Normal [facility] [id number] 21:24:00* Test Item Value Reference Range Interpretation Comme nts HCV Ab (test code = 59561-8) Negative HCV Semi-Quantitative (test code = 12083-2) [facility] [id number] 21:24:00* Test Item Value Reference Range Interpretation Comme nts HCV Ab (test code = 19684-6) Negative HCV Semi-Quantitative (test code = 35672-0) [facility] B12, [id number] 21:20:00* Test Item Value Reference Range Interpretation Comme nts VIT B12 (test code = 3531669833) 186 pg/mL 240-930 L MARCELLE (test code = MARCELLE) Biotin has been reported to cause a positive bias, interpret results relative to patient's use of biotin. Lab Interpretation (test code = 95091-0) Abnormal [facility]line[facility]OLATE2020-08-10 21:20:00* Test Item Value Reference Range Interpretation Comme nts FOLATE SER (test code = 6564847715) 13.3 ng/mL 3-20 Lab Interpretation (test cod e = 12280-5) Normal [facility] B12, [id number] 21:20:00* Test Item Value Reference Range Interpretation Comme nts VIT B12 (test code = 6170211307) 186 pg/mL 240-930 L MARCELLE (test code = MARCELLE) Biotin has been reported to cause a positive bias, interpret results relative to patient's use of biotin. Lab Interpretation (test code = 26575-0) Abnormal [facility]2020-08-10 21:20:00* Test Item Value Reference Range Interpretation Comme nts FOLATE SER (test code = 1813360342) 13.3 ng/mL 3-20 Lab Interpretation (test cod e = 84293-9) Normal [facility] D, [id number] 20:37:00* Test Item Value Reference Range Interpretation Comme nts VIT D 25OH (test code = 92472-1) 29 ng/mL 25-80 MARCELLE (test code = MARCELLE) Deficiency: <20 ng/mLInsufficiency : 20-24 ng/mLOptimal: 25-80 ng/mL Lab Interpretation (test code = 15297-7) Normal [facility] D, [id number] 20:37:00* Test Item Value Reference Range Interpretation Comme nts VIT D 25OH (test code = 18161-2) 29 ng/mL 25-80 MARCELLE (test code = MARCELLE) Deficiency: <20 ng/mLInsufficiency : 20-24 ng/mLOptimal: 25-80 ng/mL Lab Interpretation (test code = 44693-2) Normal [facility]lineHOMOCYSTEINE2020-08-10 20:19:00* Test Item Value Reference Range Interpretation Comme nts Homocysteine (test code = 4221590833) 9.1 umol/L 4.7-12.6 Lab Interpretation (test cod e = 26893-0) Normal [facility]line[facility]OMOCYSTEINE2020-08-10 20:19:00* Test Item Value Reference Range Interpretation Comme nts Homocysteine (test code = 3389071574) 9.1 umol/L 4.7-12.6 Lab Interpretation (test cod e = 55817-9) Normal [facility] HEMOGLOBIN (A1C)2020-01-31 18:38:00* Test Item Value Reference Range Interpretation Comme nts HGB A1C (test code = 4548-4) 7.0 % 4-6 H MARCELLE (test code = MARCELLE) %A1C (NGSP) Interpretation (ADA)4.8-5.6 ? ? Normal or (Non-Diabetic Range)5.7-6.4 ? ? Increased Risk (Pre-Diabetic)>6.5 ?Diabetes Indicated Lab Interpretation (test code = 52005-0) [facility]normal [facility]GLOBIN (A1C)2020-01-31 18:38:00* Test Item Value Reference Range Interpretation Comme nts HGB A1C (test code = 4548-4) 7.0 % 4-6 H MARCELLE (test code = MARCELLE) %A1C (NGSP) Interpretation (ADA)4.8-5.6 ? ? Normal or (Non-Diabetic Range)5.7-6.4 ? ? Increased Risk (Pre-Diabetic)>6.5 ?Diabetes Indicated Lab Interpretation (test code = 28669-5) [facility]normal [facility] [id number] 18:31:00 * Test Item Value Reference Range Interpretation Comme nts TSH (test code = 6059879352) See_Comment H [Automated messa ge] The system which generated this result transmitted reference range: 0.45 - 4.70 mIU/L. The reference range was not used to interpret this result as normal/abnormal. Lab Interpretation (test code = 36730-7) [facility] [id number] 18:31:00 * Test Item Value Reference Range Interpretation Comme nts TSH (test code = 6862519772) See_Comment H [Automated messa ge] The system which generated this result transmitted reference range: 0.45 - 4.70 mIU/L. The reference range was not used to interpret this result as normal/abnormal. Lab Interpretation (test code = 42099-7) Abnormal [facility] [id number] 18:17:00* Test Item Value Reference Range Interpretation Comme nts FREE T4 (test code = 2467282312) See_Comment L [Automated messa ge] The system which generated this result transmitted reference range: 0.78 - 2.20 ng/dL:. The reference range was not used to interpret this result as normal/abnormal. Lab Interpretation (test code = 29995-8) Abnormal [facility] [id number] 18:17:00* Test Item Value Reference Range Interpretation Comme nts FREE T3 (test code = 1748855959) 2.55 pg/mL 2.77-5.27 L Lab Interpretation (test cod e = 87365-1) Abnormal [facility] 18:17:00* Test Item Value Reference Range Interpretation Comme nts FREE T4 (test code = 9993669896) See_Comment L [Automated messa ge] The system which generated this result transmitted reference range: 0.78 - 2.20 ng/dL:. The reference range was not used to interpret this result as normal/abnormal. Lab Interpretation (test code = 36514-1) [facility] [id number] 18:17:00* Test Item Value Reference Range Interpretation Comme nts FREE T3 (test code = 0333817735) 2.55 pg/mL 2.77-5.27 L Lab Interpretation (test cod e = 40412-9) Abnormal [facility] WITH [id number] 18:04:00* Test Item Value Reference Range Interpretation Comme nts WBC (test code = 6690-2) See_Comment [Automated messa ge] The system which generated this result transmitted reference range: 4.30 - 11.10 10*3/?L. The reference range was not used to interpret this result as normal/abnormal. RBC (test code = 789-8) See_Comment [Automated messa ge] The system which generated this result transmitted reference range: 3.93 - 5.25 10*6/?L. The reference range was not used to interpret this result as normal/abnormal. HGB (test code = 718-7) 13.3 g/dL 11.6-15 HCT (test code = 4544-3) 41.2 % 35.7-45.2 MCV (test code = 787-2) 87.8 fL 80.6-95.5 MCH (test code = 785-6) 28.4 pg 25.9-32.8 MCHC (test code = 786-4) 32.3 g/dL 31.6-35.1 RDW-SD (test code = 10786-4) 42.1 fL 39-49.9 RDW-CV (test code = 788-0) 13.2 % 12-15.5 PLT (test code = 777-3) See_Comment [Automated messa ge] The system which generated this result transmitted reference range: 166 - 358 10*3/?L. The reference range was not used to interpret this result as normal/abnormal. MPV (test code = 16755-2) 11.2 fL 9.5-12.9 NRBC/100 WBC (test code = 7998482453) See_Comment [Automated me ssage] The system which generated this result transmitted reference range: 0.0 - 10.0 /100 WBCs. The reference range was not used to interpret this result as normal/abnormal. NRBC x10^3 (test code = 3707945852) <0.01 See_Comment [Automated me ssage] The system which generated this result transmitted reference range: 10*3/?L. The reference range was not used to interpret this result as normal/abnormal. GRAN MAT (NEUT) % (test code = 770-8) 67.8 % IMM GRAN % (test code = 1103888422) 0.50 % LYMPH % (test code = 736-9) 23.0 % MONO % (test code = 5905-5) 7.8 % EOS % (test code = 713-8) 0.5 % BASO % (test code = 706-2) 0.4 % GRAN MAT x10^3(ANC) (test code = 0218314450) 5.57 10*3/uL 1.88-7.09 IMM GRAN x10^3 (test code = 8918862103) 0.04 10*3/uL 0-0.06 LYMPH x10^3 (test code = 731-0) 1.89 10*3/uL 1.32-3.29 MONO x10^3 (test code = 742-7) 0.64 10*3/uL 0.33-0.92 EOS x10^3 (test code = 711-2) 0.04 10*3/uL 0.03-0.39 BASO x10^3 (test code = 704-7) 0.03 10*3/uL 0.01-0.07 [facility] ([id number][facility]2020-01-31 18:04:00* Test Item Value Reference Range Interpretation Comme nts NA (test code = 7945707363) 141 mmol/L 135-145 K (test code = 1822406515) 3.7 mmol/L 3.5-5 CL (test code = 1537107274) 102 mmol/L 98-108 CO2 TOTAL (test code = 8558644047) 28 mmol/L 23-31 AGAP (test code = 3031232537) 2-16 BUN (test code = 8363247199) 14 mg/dL 7-23 GLUCOSE (test code = 2174221216) 146 mg/dL 70-110 H CREATININE (test code = 9192527619) 0.68 mg/dL 0.5-1.04 TOTAL BILI (test code = 6153270704) 0.6 mg/dL 0.1-1.1 CALCIUM (test code = 0552557149) 10.0 mg/dL 8.6-10.6 T PROTEIN (test code = 6195467624) 8.2 g/dL 6.3-8.2 ALBUMIN (test code = 1234863468) 4.9 g/dL 3.5-5 ALK PHOS (test code = 0101571963) 80 U/L 34-122 ALTv (test code = 1742-6) 15 U/L 5-35 AST(SGOT) (test code = 5201690909) 22 U/L 13-40 eGFR Calculation (Non-) (test code = 7335526464) mL/min/1.73m2 eGFR Calculation () (test code = 2326380583) mL/min/1.73m2 MARCELLE (test code = MARCELLE) Association of [...] or abnormalities in imaging tests). Lab Interpretation (test code = 60071-9) [facility]normal [facility] ([id number])(TOTAL CHOLESTEROL, TRIGLYCERIDES, HDL)2020-01-31 18:04:00* Test Item Value Reference Range Interpretation Comme nts CHOL (test code = 5653124041) 277 mg/dL 120-200 H HDL (test code = 2816238207) 46 mg/dL >50 L HDLC RATIO (test code = 7911978234) See_Comment H [Automated messa ge] The system which generated this result transmitted reference range: <=4.5. The reference range was not used to interpret this result as normal/abnormal. TRIG (test code = 6722587274) 365 mg/dL 30-170 H LDL CHOL (test code = 55906-4) 158 mg/dL See_Comment [Automated messa ge] The system which generated this result transmitted reference range: <=160. The reference range was not used to interpret this result as normal/abnormal. VLDL (test code = 3441417591) 73 mg/dL 5-60 H Lab Interpretation (test code = 95753-7) Abnormal [facility] WITH [id number] 18:04:00* Test Item Value Reference Range Interpretation Comme nts WBC (test code = 6690-2) See_Comment [Automated messa ge] The system which generated this result transmitted reference range: 4.30 - 11.10 10*3/?L. The reference range was not used to interpret this result as normal/abnormal. RBC (test code = 789-8) See_Comment [Automated messa ge] The system which generated this result transmitted reference range: 3.93 - 5.25 10*6/?L. The reference range was not used to interpret this result as normal/abnormal. HGB (test code = 718-7) 13.3 g/dL 11.6-15 HCT (test code = 4544-3) 41.2 % 35.7-45.2 MCV (test code = 787-2) 87.8 fL 80.6-95.5 MCH (test code = 785-6) 28.4 pg 25.9-32.8 MCHC (test code = 786-4) 32.3 g/dL 31.6-35.1 RDW-SD (test code = 36285-7) 42.1 fL 39-49.9 RDW-CV (test code = 788-0) 13.2 % 12-15.5 PLT (test code = 777-3) See_Comment [Automated messa ge] The system which generated this result transmitted reference range: 166 - 358 10*3/?L. The reference range was not used to interpret this result as normal/abnormal. MPV (test code = 84696-4) 11.2 fL 9.5-12.9 NRBC/100 WBC (test code = 5388031835) See_Comment [Automated me ssage] The system which generated this result transmitted reference range: 0.0 - 10.0 /100 WBCs. The reference range was not used to interpret this result as normal/abnormal. NRBC x10^3 (test code = 7367718604) <0.01 See_Comment [Automated me ssage] The system which generated this result transmitted reference range: 10*3/?L. The reference range was not used to interpret this result as normal/abnormal. GRAN MAT (NEUT) % (test code = 770-8) 67.8 % IMM GRAN % (test code = 6787896154) 0.50 % LYMPH % (test code = 736-9) 23.0 % MONO % (test code = 5905-5) 7.8 % EOS % (test code = 713-8) 0.5 % BASO % (test code = 706-2) 0.4 % GRAN MAT x10^3(ANC) (test code = 5657714612) 5.57 10*3/uL 1.88-7.09 IMM GRAN x10^3 (test code = 6479771710) 0.04 10*3/uL 0-0.06 LYMPH x10^3 (test code = 731-0) 1.89 10*3/uL 1.32-3.29 MONO x10^3 (test code = 742-7) 0.64 10*3/uL 0.33-0.92 EOS x10^3 (test code = 711-2) 0.04 10*3/uL 0.03-0.39 BASO x10^3 (test code = 704-7) 0.03 10*3/uL 0.01-0.07 [facility] ([id number])2020-01-31 18:04:00* Test Item Value Reference Range Interpretation Comme nts NA (test code = 4616519068) 141 mmol/L 135-145 K (test code = 0614066387) 3.7 mmol/L 3.5-5 CL (test code = 5302539323) 102 mmol/L 98-108 CO2 TOTAL (test code = 8070931699) 28 mmol/L 23-31 AGAP (test code = 5407552489) 2-16 BUN (test code = 5918392914) 14 mg/dL 7-23 GLUCOSE (test code = 5462152230) 146 mg/dL 70-110 H CREATININE (test code = 3497779381) 0.68 mg/dL 0.5-1.04 TOTAL BILI (test code = 7445550818) 0.6 mg/dL 0.1-1.1 CALCIUM (test code = 1844935840) 10.0 mg/dL 8.6-10.6 T PROTEIN (test code = 9424293272) 8.2 g/dL 6.3-8.2 ALBUMIN (test code = 3712663135) 4.9 g/dL 3.5-5 ALK PHOS (test code = 7493917037) 80 U/L 34-122 ALTv (test code = 1742-6) 15 U/L 5-35 AST(SGOT) (test code = 7673945537) 22 U/L 13-40 eGFR Calculation (Non-) (test code = 7202656278) mL/min/1.73m2 eGFR Calculation () (test code = 6804631325) mL/min/1.73m2 MARCELLE (test code = MARCELLE) Association of [...] or abnormalities in imaging tests). Lab Interpretation (test code = 35011-8) [facility]normal [facility] (63385)(TOTAL CHOLESTEROL, TRIGLYCERIDES, HDL)2020-01-31 18:04:00* Test Item Value Reference Range Interpretation Comme nts CHOL (test code = 2047306830) 277 mg/dL 120-200 H HDL (test code = 5071541517) 46 mg/dL >50 L HDLC RATIO (test code = 7589030672) See_Comment H [[email or web address] [email or web address]] The system which generated this result transmitted reference range: <=4.5. The reference range was not used to interpret this result as normal/abnormal. TRIG (test code = 1356412205) 365 mg/dL 30-170 H LDL CHOL (test code = 57495-2) 158 mg/dL See_Comment [[email or web address] [email or web address]] The system which generated this result transmitted reference range: <=160. The reference range was not used to interpret this result as normal/abnormal. VLDL (test code = 7514570775) 73 mg/dL 5-60 H Lab Interpretation (test code = 58055-8) Abnormal [facility]lineACT-[id number] 06:49:00* Test Item Value Reference Range Interpretation Comme nts ACT-ISTAT (test code = ACTI) 158 SEC 74-137 H [id number] 06:49:00* Test Item Value Reference Range Interpretation Comme nts ACT-ISTAT (test code = ACTI) 180 SEC 74-137 H [id number] 06:49:00* Test Item Value Reference Range Interpretation Comme nts ACT-ISTAT (test code = ACTI) 224 SEC 74-137 H GLUCOSE BEDSIDE [id number] 08:44:00* Test Item Value Reference Range Interpretation Comme nts GLUCOSE BEDSIDE TESTING (emanuel t code = GLUBED) 124 MG/DL 60-99 H BASIC METABOLIC [id number] 07:40:00* Test Item Value Reference Range Interpretation Comme nts SODIUM (test code = NA) 138 MMOL/L 137-145 N POTASSIUM (test code = K) 3.6 MMOL/L 3.5-5.1 N CHLORIDE (test code = CL) 103 MMOL/L 98-107 N CARBON DIOXIDE (test code = CO2) 23 MMOL/L 22-30 N GLUCOSE (test code = GLU) 128 MG/DL 74-106 H BLOOD UREA NITROGEN (test code = BUN) 12 MG/DL 7-17 N GLOMERULAR FILTRATION RATE (test code = GFR) > 60 Reporting units: ml/min/1.73 m2 (Modified MDRD Formula)Reference Range: > or = 60 ml/min/1.73 m2 CREATININE (test code = CREAT) 0.50 MG/DL 0.52-1.04 L CALCIUM (test code = CA) 8.4 MG/DL 8.4-10.2 N BASIC METABOLIC [id number] 07:38:00* Test Item Value Reference Range Interpretation Comme nts SODIUM (test code = NA) 138 MMOL/L 137-145 N POTASSIUM (test code = K) 3.6 MMOL/L 3.5-5.1 N CHLORIDE (test code = CL) 103 MMOL/L 98-107 N CARBON DIOXIDE (test code = CO2) 23 MMOL/L 22-30 N GLUCOSE (test code = GLU) MG/DL 74-106 BLOOD UREA NITROGEN (test code = BUN) 12 MG/DL 7-17 N GLOMERULAR FILTRATION RATE (test code = GFR) > 60 Reporting units: ml/min/1.73 m2 (Modified MDRD Formula)Reference Range: > or = 60 ml/min/1.73 m2 CREATININE (test code = CREAT) 0.50 MG/DL 0.52-1.04 L CALCIUM (test code = CA) MG/DL 8.7-9.7 BASIC METABOLIC [id number] 07:36:00* Test Item Value Reference Range Interpretation Comme nts SODIUM (test code = NA) 138 MMOL/L 137-145 N POTASSIUM (test code = K) 3.6 MMOL/L 3.5-5.1 N CHLORIDE (test code = CL) 103 MMOL/L 98-107 N CARBON DIOXIDE (test code = CO2) MMOL/L 22-30 GLUCOSE (test code = GLU) MG/DL 74-106 BLOOD UREA NITROGEN (test co de = BUN) MG/DL 7-17 GLOMERULAR FILTRATION RATE ( test code = GFR) CREATININE (test code = CREAT) MG/DL 0.52-1.04 CALCIUM (test code = CA) MG/DL 8.7-9.7 BASIC METABOLIC [id number] 07:35:00* Test Item Value Reference Range Interpretation Comme nts SODIUM (test code = NA) 138 MMOL/L 137-145 N POTASSIUM (test code = K) MMOL/L 3.5-5.1 CHLORIDE (test code = CL) 103 MMOL/L 98-107 N CARBON DIOXIDE (test code = CO2) MMOL/L 22-30 GLUCOSE (test code = GLU) MG/DL 74-106 BLOOD UREA NITROGEN (test co de = BUN) MG/DL 7-17 GLOMERULAR FILTRATION RATE ( test code = GFR) CREATININE (test code = CREAT) MG/DL 0.52-1.04 CALCIUM (test code = CA) MG/DL 8.7-9.7 CBC W/AUTO [id number] 07:18:00* Test Item Value Reference Range Interpretation Comme nts WHITE BLOOD CELL (test code = WBC) 9.6 K/MM3 3.8-9.8 N RED BLOOD CELL (test code = RBC) 3.60 M/MM3 3.58-4.97 HEMOGLOBIN (test code = HGB) 10.4 G/DL 11.2-14.9 L HEMATOCRIT (test code = HCT) 34.3 % 33.2-43.5 MEAN CELL VOLUME (test code = MCV) 95 fL 80.7-99.1 N MEAN CELL HGB (test code = MCH) 28.9 pg 27.0-34.1 N MEAN CELL HGB CONCETRATION (test code = MCHC) 30.3 % 32.2-35.7 L RED CELL DISTRIBUTION WIDTH (test code = RDW) 13.5 % 12.1-15.2 N PLATELET COUNT (test code = PLT) 129 K/MM3 129-368 MEAN PLATELET VOLUME (test c ode = MPV) 12.7 fl 7.4-10.4 H NEUTROPHIL % (test code = NT%) 73.7 % 43-75 N IMMATURE GRANULOCYTE % (test code = IG%) 0.4 % 0.0-2.0 N LYMPHOCYTE % (test code = LY%) 15.2 % 14-44 N MONOCYTE % (test code = MO%) 10.3 % 4-13 N EOSINOPHIL % (test code = EO%) 0.1 % 0-6 N BASOPHIL % (test code = BA%) 0.3 % 0-2 N NUCLEATED RBC % (test code = NRBC%) 0.0 % 0-1.0 N NEUTROPHIL # (test code = NT#) 7.06 K/mm3 2.0-7.6 N IMMATURE GRANULOCYTE # (test code = IG#) 0.04 x10 3/uL 0-0.03 H LYMPHOCYTE # (test code = LY#) 1.46 K/mm3 1.0-3.8 N MONOCYTE # (test code = MO#) 0.99 K/mm3 0.1-0.8 H EOSINOPHIL # (test code = EO#) 0.01 K/mm3 0.0-0.2 N BASOPHIL # (test code = BA#) 0.03 K/mm3 0.0-0.2 N NUCLEATED RBC # (test code = NRBC#) 0.00 K/mm3 0.0-0.1 N [id number] 13:37:00* Test Item Value Reference Range Interpretation Comme nts ACT-ISTAT (test code = ACTI) 373 SEC 74-137 H [id number] 13:37:00* Test Item Value Reference Range Interpretation Comme nts ACT-ISTAT (test code = ACTI) 296 SEC 74-137 H [id number] 13:37:00* Test Item Value Reference Range Interpretation Comme nts ACT-ISTAT (test code = ACTI) 318 SEC 74-137 H [id number] 13:37:00* Test Item Value Reference Range Interpretation Comme nts ACT-ISTAT (test code = ACTI) 417 SEC 74-137 H [id number] 13:37:00* Test Item Value Reference Range Interpretation Comme nts ACT-ISTAT (test code = ACTI) 345 SEC 74-137 H [id number] 13:37:00* Test Item Value Reference Range Interpretation Comme nts ACT-ISTAT (test code = ACTI) 268 SEC 74-137 H BASIC METABOLIC [id number] 07:38:00* Test Item Value Reference Range Interpretation Comme nts SODIUM (test code = NA) 141 MMOL/L 137-145 N POTASSIUM (test code = K) 3.8 MMOL/L 3.5-5.1 N CHLORIDE (test code = CL) 103 MMOL/L 98-107 N CARBON DIOXIDE (test code = CO2) 27 MMOL/L 22-30 N GLUCOSE (test code = GLU) 154 MG/DL 74-106 H BLOOD UREA NITROGEN (test code = BUN) 15 MG/DL 7-17 N GLOMERULAR FILTRATION RATE (test code = GFR) > 60 Reporting units: ml/min/1.73 m2 (Modified MDRD Formula)Reference Range: > or = 60 ml/min/1.73 m2 CREATININE (test code = CREAT) 0.60 MG/DL 0.52-1.04 N CALCIUM (test code = CA) 9.7 MG/DL 8.4-10.2 N [id number] 07:38:00* Test Item Value Reference Range Interpretation Comme nts MAGNESIUM (test code = MAG) 1.8 MG/DL 1.6-2.3 N BASIC METABOLIC [id number] 07:37:00* Test Item Value Reference Range Interpretation Comme nts SODIUM (test code = NA) 141 MMOL/L 137-145 N POTASSIUM (test code = K) 3.8 MMOL/L 3.5-5.1 N CHLORIDE (test code = CL) 103 MMOL/L 98-107 N CARBON DIOXIDE (test code = CO2) 27 MMOL/L 22-30 N GLUCOSE (test code = GLU) 154 MG/DL 74-106 H BLOOD UREA NITROGEN (test code = BUN) 15 MG/DL 7-17 N GLOMERULAR FILTRATION RATE (test code = GFR) > 60 Reporting units: ml/min/1.73 m2 (Modified MDRD Formula)Reference Range: > or = 60 ml/min/1.73 m2 CREATININE (test code = CREAT) 0.60 MG/DL 0.52-1.04 N CALCIUM (test code = CA) MG/DL 8.7-9.7 [id number] 07:37:00* Test Item Value Reference Range Interpretation Comme nts MAGNESIUM (test code = MAG) MG/DL 1.6-2.3 BASIC METABOLIC [id number] 07:37:00* Test Item Value Reference Range Interpretation Comme nts SODIUM (test code = NA) 141 MMOL/L 137-145 N POTASSIUM (test code = K) 3.8 MMOL/L 3.5-5.1 N CHLORIDE (test code = CL) 103 MMOL/L 98-107 N CARBON DIOXIDE (test code = CO2) 27 MMOL/L 22-30 N GLUCOSE (test code = GLU) 154 MG/DL 74-106 H BLOOD UREA NITROGEN (test code = BUN) 15 MG/DL 7-17 N GLOMERULAR FILTRATION RATE (test code = GFR) > 60 Reporting units: ml/min/1.73 m2 (Modified MDRD Formula)Reference Range: > or = 60 ml/min/1.73 m2 CREATININE (test code = CREAT) 0.60 MG/DL 0.52-1.04 N CALCIUM (test code = CA) 9.7 MG/DL 8.4-10.2 N [id number] 07:37:00* Test Item Value Reference Range Interpretation Comme nts MAGNESIUM (test code = MAG) MG/DL 1.6-2.3 BASIC METABOLIC [id number] 07:33:00* Test Item Value Reference Range Interpretation Comme nts SODIUM (test code = NA) 141 MMOL/L 137-145 N POTASSIUM (test code = K) 3.8 MMOL/L 3.5-5.1 N CHLORIDE (test code = CL) 103 MMOL/L 98-107 N CARBON DIOXIDE (test code = CO2) MMOL/L 22-30 GLUCOSE (test code = GLU) MG/DL 74-106 BLOOD UREA NITROGEN (test co de = BUN) MG/DL 7-17 GLOMERULAR FILTRATION RATE ( test code = GFR) CREATININE (test code = CREAT) MG/DL 0.52-1.04 CALCIUM (test code = CA) MG/DL 8.7-9.7 [id number] 07:33:00* Test Item Value Reference Range Interpretation Comme [facility] MAGNESIUM (test code = MAG) MG/DL 1.6-2.3 PROTHROMBIN [id number] 07:19:00* Test Item Value Reference Range Interpretation Comme [facility] PROTHROMBIN TIME PATIENT (test code = PTP) 11.1 SECONDS 9.4-12.5 N INTERNATIONAL NORMAL RATIO (test code = INR) 1.0 The INR is to be used only for monitoring oral anticoagulanttherap y. INDICATION INR VALUE -------1. Prophylaxis, deep venous thrombosis, including high risk surgery. 2.0 - 3.0 2. Prophylaxis, deep venous thrombosis, hip surgery, treatment for deep venous thrombosis or pulmonary prevention of systemic embolism in patients with valvular heart disease, atrial fibrillation, tissue heart valve, or acute myocardial infarction. 2.0 - 3.0 3. Mechanical prosthesis heart valves, recurrent systemic embolism. 3.0 - 4.5 PTT [id number] 07:19:00* Test Item Value Reference [facility] (test code = APTT) 34.2 SECONDS 25.1-36.5 N CBC W/AUTO [id number] 07:03:00* Test Item Value Reference Range Interpretation Comme [facility] WHITE BLOOD CELL (test code = WBC) 7.9 K/MM3 3.8-9.8 N RED BLOOD CELL (test code = RBC) 4.29 M/MM3 3.58-4.97 N HEMOGLOBIN (test code = HGB) 12.2 G/DL 11.2-14.9 N HEMATOCRIT (test code = HCT) 38.6 % 33.2-43.5 N MEAN CELL VOLUME (test code = MCV) 90 fL 80.7-99.1 N MEAN CELL HGB (test code = MCH) 28.4 pg 27.0-34.1 N MEAN CELL HGB CONCETRATION (test code = MCHC) 31.6 % 32.2-35.7 L RED CELL DISTRIBUTION WIDTH (test code = RDW) 13.3 % 12.1-15.2 N PLATELET COUNT (test code = PLT) 256 K/MM3 129-368 N MEAN PLATELET VOLUME (test c ode = MPV) 10.8 fl 7.4-10.4 H NEUTROPHIL % (test code = NT%) 66.4 % 43-75 N IMMATURE GRANULOCYTE % (test code = IG%) 0.3 % 0.0-2.0 N LYMPHOCYTE % (test code = LY%) 23.6 % 14-44 N MONOCYTE % (test code = MO%) 7.6 % 4-13 N EOSINOPHIL % (test code = EO%) 1.5 % 0-6 N BASOPHIL % (test code = BA%) 0.6 % 0-2 N NUCLEATED RBC % (test code = NRBC%) 0.0 % 0-1.0 N NEUTROPHIL # (test code = NT#) 5.24 K/mm3 2.0-7.6 N IMMATURE GRANULOCYTE # (test code = IG#) 0.02 x10 3/uL 0-0.03 N LYMPHOCYTE # (test code = LY#) 1.86 K/mm3 1.0-3.8 N MONOCYTE # (test code = MO#) 0.60 K/mm3 0.1-0.8 N EOSINOPHIL # (test code = EO#) 0.12 K/mm3 0.0-0.2 N BASOPHIL # (test code = BA#) 0.05 K/mm3 0.0-0.2 N NUCLEATED RBC # (test code = NRBC#) 0.00 K/mm3 0.0-0.1 N GLUCOSE BEDSIDE [id number] 08:47:00* Test Item Value Reference Range Interpretation Comme nts GLUCOSE BEDSIDE TESTING (emanuel t code = GLUBED) 130 MG/DL 60-99 H BASIC METABOLIC [id number] 10:13:00* Test Item Value Reference Range Interpretation Comme nts SODIUM (test code = NA) 143 MMOL/L 137-145 N POTASSIUM (test code = K) 4.2 MMOL/L 3.5-5.1 N CHLORIDE (test code = CL) 103 MMOL/L 98-107 N CARBON DIOXIDE (test code = CO2) 30 MMOL/L 22-30 N GLUCOSE (test code = GLU) 132 MG/DL 74-106 H BLOOD UREA NITROGEN (test code = BUN) 16 MG/DL 7-17 N GLOMERULAR FILTRATION RATE (test code = GFR) > 60 Reporting units: ml/min/1.73 m2 (Modified MDRD Formula)Reference Range: > or = 60 ml/min/1.73 m2 CREATININE (test code = CREAT) 0.60 MG/DL 0.52-1.04 N CALCIUM (test code = CA) 9.8 MG/DL 8.4-10.2 N [id number] 10:13:00* Test Item Value Reference Range Interpretation Comme nts MAGNESIUM (test code = MAG) 1.8 MG/DL 1.6-2.3 N BASIC METABOLIC [id number] 10:12:00* Test Item Value Reference Range Interpretation Comme nts SODIUM (test code = NA) 143 MMOL/L 137-145 N POTASSIUM (test code = K) 4.2 MMOL/L 3.5-5.1 N CHLORIDE (test code = CL) 103 MMOL/L 98-107 N CARBON DIOXIDE (test code = CO2) 30 MMOL/L 22-30 N GLUCOSE (test code = GLU) 132 MG/DL 74-106 H BLOOD UREA NITROGEN (test code = BUN) 16 MG/DL 7-17 N GLOMERULAR FILTRATION RATE (test code = GFR) > 60 Reporting units: ml/min/1.73 m2 (Modified MDRD Formula)Reference Range: > or = 60 ml/min/1.73 m2 CREATININE (test code = CREAT) 0.60 MG/DL 0.52-1.04 N CALCIUM (test code = CA) MG/DL 8.7-9.7 [id number] 10:12:00* Test Item Value Reference Range Interpretation Comme nts MAGNESIUM (test code = MAG) MG/DL 1.6-2.3 PROTHROMBIN [id number] 10:10:00* Test Item Value Reference Range Interpretation Comme [facility] PROTHROMBIN TIME PATIENT (test code = PTP) 16.0 SECONDS 9.4-12.5 H INTERNATIONAL NORMAL RATIO (test code = INR) 1.4 The INR is to be used only for monitoring oral anticoagulanttherap y. INDICATION INR VALUE -------1. Prophylaxis, deep venous thrombosis, including high risk surgery. 2.0 - 3.0 2. Prophylaxis, deep venous thrombosis, hip surgery, treatment for deep venous thrombosis or pulmonary prevention of systemic embolism in patients with valvular heart disease, atrial fibrillation, tissue heart valve, or acute myocardial infarction. 2.0 - 3.0 3. Mechanical prosthesis heart valves, recurrent systemic embolism. 3.0 - 4.5 PTT [id number] 10:10:00* Test Item Value Reference Range Interpretation Comme [facility] PTT ACTIVATED (test code = APTT) 40.3 SECONDS 25.1-36.5 H BASIC METABOLIC [id number] 10:09:00* Test Item Value Reference Range Interpretation Comme nts SODIUM (test code = NA) 143 MMOL/L 137-145 N POTASSIUM (test code = K) 4.2 MMOL/L 3.5-5.1 N CHLORIDE (test code = CL) 103 MMOL/L 98-107 N CARBON DIOXIDE (test code = CO2) MMOL/L 22-30 GLUCOSE (test code = GLU) MG/DL 74-106 BLOOD UREA NITROGEN (test co de = BUN) MG/DL 7-17 GLOMERULAR FILTRATION RATE ( test code = GFR) CREATININE (test code = CREAT) MG/DL 0.52-1.04 CALCIUM (test code = CA) MG/DL 8.7-9.7 [id number] 10:09:00* Test Item Value Reference Range Interpretation Comme nts MAGNESIUM (test code = MAG) MG/DL 1.6-2.3 CBC W/AUTO [id number] 09:56:00* Test Item Value Reference Range Interpretation Comme nts WHITE BLOOD CELL (test code = WBC) 8.8 K/MM3 3.8-9.8 N RED BLOOD CELL (test code = RBC) 4.38 M/MM3 3.58-4.97 N HEMOGLOBIN (test code = HGB) 12.6 G/DL 11.2-14.9 N HEMATOCRIT (test code = HCT) 39.1 % 33.2-43.5 N MEAN CELL VOLUME (test code = MCV) 89 fL 80.7-99.1 N MEAN CELL HGB (test code = MCH) 28.8 pg 27.0-34.1 N MEAN CELL HGB CONCETRATION (test code = MCHC) 32.2 % 32.2-35.7 N RED CELL DISTRIBUTION WIDTH (test code = RDW) 13.2 % 12.1-15.2 N PLATELET COUNT (test code = PLT) 228 K/MM3 129-368 N MEAN PLATELET VOLUME (test c ode = MPV) 10.8 fl 7.4-10.4 H NEUTROPHIL % (test code = NT%) 67.7 % 43-75 N IMMATURE GRANULOCYTE % (test code = IG%) 0.2 % 0.0-2.0 N LYMPHOCYTE % (test code = LY%) 20.0 % 14-44 N MONOCYTE % (test code = MO%) 8.8 % 4-13 N EOSINOPHIL % (test code = EO%) 2.6 % 0-6 N BASOPHIL % (test code = BA%) 0.7 % 0-2 N NUCLEATED RBC % (test code = NRBC%) 0.0 % 0-1.0 N NEUTROPHIL # (test code = NT#) 5.94 K/mm3 2.0-7.6 N IMMATURE GRANULOCYTE # (test code = IG#) 0.02 x10 3/uL 0-0.03 N LYMPHOCYTE # (test code = LY#) 1.75 K/mm3 1.0-3.8 N MONOCYTE # (test code = MO#) 0.77 K/mm3 0.1-0.8 N EOSINOPHIL # (test code = EO#) 0.23 K/mm3 0.0-0.2 H BASOPHIL # (test code = BA#) 0.06 K/mm3 0.0-0.2 N NUCLEATED RBC # (test code = NRBC#) 0.00 K/mm3 0.0-0.1 N XR WRIST <3 VW [id number] 19:17:01Transverse fracture distal radius no volar or dorsal angulation which shows callus formation today in an acceptable alignment there is also some callus formation on the ULNAR styloid fracture. [facility] Notes Date/Time Note Provider Source 2021-12-20 19:48:00 [id number]:48:0 [id number] [place] [address] PATIENT NAME: ALBA KAUR ADMIT DATE: 10/26/21ACCOUNT NO: [id number] ROOM NO: [facility] [place] AGE: 76 REPORT TYPE: DISCHARGE SUMMARY REPORT SEX: F ADMITTING PHYSICIAN:Ady Ventura MD ATTENDING PHYSICIAN:Ady Ventura MD ADMISSION DATE: 2DISCHARGE DATE: 10/29/2021 DISCHARGE DIAGNOSES: Right internal carotid artery stenosis status post rightcarotid endarterectomy, coronary artery disease with right coronary stenosis,infrarenal abdominal aortic stenosis, hypertension, hypercholesterolemia, anddiabetes mellitus. HOSPITAL COURSE: The patient is a 76-year-old female well known to 's services with a history of coronary artery disease, who was noted tohave a high-grade right coronary artery stenosis on cardiac catheterization. The patient was also noted to have a high-grade right ICA stenosis about 80% to90% and was admitted and taken to the operating room where she underwent a rightcarotid endarterectomy with Hemashield patch arterioplasty. The patienttolerated the procedure well, taken to ICU in a stable condition where shemaintained a normal sinus rhythm where she was temporally placed on a Cardenedrip and this was weaned off. The patient was ambulating independently and withphysical therapy. She remained stable postoperatively, having had a goodoutcome from surgery. She was discharged home in a stable condition and wasinstructed to follow up with Dr. Ventura in 1 to 2 weeks. She is to continuetaking medication from her discharge AUG. Dictated By: SAAD Person for Ady Ventura MD WT: DS:ZOE/SIRI/NTSDD: 12/20/2021 19:48:13DT: 12/21/2021 03:18:09Conf#: [id number]/DID#: [id number] Authenticated by SAAD Person On 12/21/2021 09:30:20 AM Authenticated by Ady Ventura MD On 12/21/2021 09:43:48 AM at 0943 at 0930 PATIENT NAME: ALBA KAUR [id number]:18:00Z.[id number] ilable for patient ayfeERPTVEBLLIDAYO9220-95-80J53:44:28 [facility] 2021-12-07 15:35:00 [id number] OWiZDG5dSnGDkaJqNAvsDOXdfv+WQWI8859-95-25X72:35:0 [id number] [place] [address] PATIENT NAME: ALBA KAUR ADMIT DATE: 12/04/21ACCOUNT NO: [id number] ROOM NO: Z.SI03 AGE: 76 REPORT TYPE: DISCHARGE SUMMARY REPORT SEX: F ADMITTING PHYSICIAN:Ady Ventura MD ATTENDING PHYSICIAN:Ady Ventura MD ADMISSION DATE: 2DISCHARGE DATE: 12/07/2021 DISCHARGE DIAGNOSES: Distal infrarenal abdominal aortic stenosis, status postendovascular stent repair, hypertension, hypercholesterolemia, history ofcarotid endarterectomy, coronary artery disease with right coronary arterylesion, paroxysmal atrial fibrillation, status post PVI ablation. HOSPITAL COURSE: The patient is a 76-year-old female well known to our serviceswith a history of carotid stenosis, status post carotid endarterectomy, who wasalso noted to have a distal infrarenal abdominal aortic stenosis and rightcoronary artery stenosis. The patient was ultimately admitted on 12/04/2021 andtaken to the operating room where she underwent an endovascular stent repair ofthe infrarenal abdominal aorta stenosis. The patient tolerated the procedurewell. She was transferred to ICU in a stable condition, where she was havinghypertension and was started on Cardene drip. Once her p.o. meds was restartedshe was able to be weaned off the Cardene drip. The patient remained stablepostoperatively, having had a good outcome from surgery. [place] condition and she was instructed to follow up with Dr. Epstein 1 to 2 weeks and to continue taking her medications as prescribed. Dictated By: SAAD Person for Ady Ventura MD WT: DS:ZOE/SIRI/NTSDD: 12/07/2021 15:35:07DT: 12/07/2021 19:44:27Conf#: [id number]/DID#: [id number] Authenticated by SAAD Person On 12/13/2021 05:22:13 PM Authenticated by Ady Ventura MD On 12/13/2021 05:36:56 PM at 0536 at 0522 PATIENT NAME: ALBA KAUR [id number]:44:[id number] ilable for patient hdzpAHHPAKUVRBQMKS8795-20-65V36:37:31 [facility] 2021-12-07 06:20:00 [id number] 9GenbVc1nDYOvqA4qKj7r2OgZnAuNL+2299-85-09L75:20:0 0 [facility] Progress NoteREPORT#:[id number] REPORT STATUS: SignedDATE:12/07/21 TIME: 06 PATIENT: ALBA KAUR UNIT #: [id number]#: [id number] [address]: [address] AGE: 76 SEX: F ATTEND: Ady Ventura [facility] AUTHOR: Skinny Cantu MD * ALL edits or amendments must be made on the electronic/computer document * SubjectiveChief complaint:AAAPatient reports:No: chest pain, palpitations, shortness of breath. Objective GeneralVS/I O:24 hour I O ending at 0700: 12/07 0700 12/06 1900 Intake Total 1040.00 1239.50 Output Total Balance 1040.00 1239.50 Intake, IV 440.00 559.50 Intake, Oral 600 680 Number Voids 2 2 Vital Signs: Date Time Temp Pulse Resp B/P B/P Pulse O2 O2 Flow FiO2 Mean Ox Delivery Rate 12/07 0530 85 21 99 12/07 0515 85 22 99 12/07 0500 88 17 99 12/07 0445 86 23 93 12/07 0430 89 18 97 12/07 0415 87 23 95 12/07 0400 97.2 Nasal 2 cannula 12/07 0400 87 17 95 12/07 0345 87 24 93 12/07 0330 90 22 92 12/07 0315 87 25 96 12/07 0300 89 11 96 12/07 0245 88 12 95 12/07 0230 91 27 94 12/07 0215 94 95 12/07 0200 89 13 94 12/07 0145 89 21 95 12/07 0130 90 21 94 12/07 0115 90 24 93 12/07 0100 90 22 93 12/07 0045 92 25 93 12/07 0030 90 19 95 12/07 0015 95 96 12/07 0000 97.4 Room air 2 12/07 0000 93 19 94 12/06 2345 96 23 06/16 2330 94 18 06/16 2315 93 21 06/16 2300 92 23 06/16 2245 91 22 06/16 2230 90 11 95 06/16 2215 94 15 95 06/16 2200 89 15 100 06/16 2145 88 100 06/16 2130 87 100 06/16 2115 88 100 06/16 2100 91 18 06/16 2045 89 11 92 06/16 2030 88 93 06/16 2014 89 20 94 06/16 1999 Nasal 2 cannula 06/16 1999 90 20 94 06/16 1950 97.2 Nasal 2 cannula 06/16 1945 87 06/16 1930 84 92 06/16 1915 85 11 91 06/16 1900 90 25 98 06/16 1845 86 20 91 06/16 1830 87 17 90 06/16 1815 88 16 90 06/16 1800 97.4 06/16 1800 93 10 89 06/16 1745 95 13 92 06/16 1730 94 16 95 06/16 1715 93 06/16 1645 99 29 96 06/16 1630 101 28 97 06/16 1615 98 33 99 06/16 1600 96 30 90 06/16 1545 96 28 90 06/16 1530 101 21 97 06/16 1515 91 29 91 06/16 1500 90 29 92 06/16 1445 91 32 93 06/16 1430 90 17 96 06/16 1415 93 20 98 06/16 1400 93 28 92 06/16 1345 92 26 93 06/16 1340 99 Room air 21 06/16 1330 88 22 94 06/16 1315 93 15 96 06/16 1300 93 13 97 06/16 1245 85 26 93 06/16 1230 86 23 06/16 1230 95 06/16 1200 28 06/16 1200 97.0 06/16 1200 96 95 06/16 1130 116 97 06/16 1125 99.1 116 18 96 Room air 06/16 1100 96 94 06/16 1045 98 21 06/16 1000 112 22 92 06/16 0930 96 22 92 06/16 0900 95 96 06/16 0845 100 06/16 0830 106 95 06/16 0815 101 06/16 0800 96 20 100 06/16 0800 99.0 100 20 95 Room air 06/16 0745 95 23 100 06/16 0730 92 20 100 06/16 0715 101 28 99 06/16 0700 92 24 100 12/06 0645 88 22 99 12/06 0630 87 24 98 PATIENT WEIGHT: Weight (lb): 147Weight (oz): 6.56Weight (kg): 66.678 Medications:Active Meds + DC'd Last 24 HrsClopidogrel Bisulfate (PLAVIX) 75 MG DAILY PO Famotidine (PEPCID SUSP) 20 MG Q12HR PO Hydralazine HCl (APRESOLINE) 10 MG Q6H PRN PRN IV Magnesium Sulfate (MAG SULFATE 2GM PREMIX) 50 ML NOW ONE IV (DC) Potassium Chloride (KLOR-CON M20) 20 MEQ NOW ONE PO (DC) Hydrocodone Bitart/Acetaminophen (NORCO 5/325 TABLET (C-II)) 1 TAB Q4H PRN PRN PO Hydrocodone Bitart/Acetaminophen (NORCO 5/325 TABLET (C-II)) 2 TAB Q4H PRN PRN PO Magnesium Hydroxide (MILK OF MAGNESIA) 30 ML ASDIR PRN PO Zolpidem Tartrate (AMBIEN (C-IV)) 5 MG BEDTIME PRN PRN PO Acetaminophen (TYLENOL) 650 MG Q4H PRN PRN PO Metoprolol Succinate (TOPROL XL) 100 MG DAILY PO Amlodipine Besylate (NORVASC TAB) 5 MG DAILY PO Famotidine (PEPCID SUSP) 20 MG Q12HR FEED-TUBE (DC) Gabapentin (NEURONTIN) 100 MG 2100 PO Aspirin (ASPIRIN EC) 81 MG DAILY PO Clopidogrel Bisulfate (PLAVIX) 75 MG DAILY FEED-TUBE (DC) Mupirocin (BACTROBAN NASAL - ADULT ICU) 1 APPLIC BID NASAL Insulin Human Lispro (HumaLOG) LOW DOSE SLIDING SCALE AC HS SUBQ Dextrose/Water (DEXTROSE 50% IN WATER) 12.5 GM ASDIR PRN IV Dextrose/Water (DEXTROSE 50% IN WATER) 25 GM ASDIR PRN IV Acetaminophen (ACETAMINOPHEN LIQUID) 650 MG Q4H PRN PRN FEED-TUBE (DC) Nicardipine HCl (CARDENE I.V.) 25 MG ASDIR IV (CKD) Sodium Chloride (SODIUM CHLORIDE 0.9%) 250 MLBenzocaine/Menthol (Cepacol Sore Throat Lozenge) 1 TAB Q2H PRN PRN MM (CKD) Bisacodyl (BISACODYL SUPP) 10 MG ASDIR PRN RECTAL Calcium Gluconate/Sodium Chloride (Calcium Gluconate 1 GM/100ML NS) 100 ML ASDIR PRN IV Hydrocodone Bitart/Acetaminophen (NORCO 5/325 TABLET (C-II)) 1 TAB Q4H PRN PRN FEED-TUBE (DC) Hydrocodone Bitart/Acetaminophen (NORCO 5/325 TABLET (C-II)) 2 TAB Q4H PRN PRN FEED-TUBE (DC) Meperidine HCl (DEMEROL (C-II)) 25 MG Q4H PRN PRN IM Meperidine HCl (DEMEROL (C-II)) 50 MG Q4H PRN PRN IM Nicardipine HCl (CARDENE I.V.) 25 MG ASDIR PRN IV (CKD) Sodium Chloride (SODIUM CHLORIDE 0.9%) 250 MLOndansetron HCl (ZOFRAN) 4 MG Q8H PRN PRN IV Phenol (CHLORASEPTIC) 5 SPRAY Q2H PRN PRN MM Potassium Chloride (Potassium Chloride) 50 ML ASDIR PRN IV Potassium Chloride/Dextrose/Sod Cl (DEXTROSE 5%-1/2NS-KCL 20MEQ) 1,000 ML Q12H IV (DC) Cefuroxime Sodium (ZINACEF) 1.5 GM PREOP IV (CKD) Sodium Chloride (SODIUM CHLORIDE 0.9%) 16 MLMagnesium Hydroxide (MILK OF MAGNESIA) 30 ML ASDIR PRN FEED-TUBE (DC) Zolpidem Tartrate (AMBIEN (C-IV)) 5 MG BEDTIME PRN PRN FEED-TUBE (DC) Physical ExamGeneral appearance: alert, awake, orientedHead/Eyes: atraumatic, normocephalicENT: moist mucosal membranesNeck: no JVDCardiovascular: CV assessment: regular rate and rhythmRespiratory: clear to auscultation, no distressAbdomen: soft, non-tenderLower extremity: LE assessment: no edemaMusculoskeletal: full range of motionNeuro/WIRE SAWYER: alert, oriented X 3, CN II-XII intactSkin: dry, intactWound/incision: Site condition: dressing clean dry, no drainagePsychiatry: normal affect, normal judgment/insight, normal mood ResultsFindings/Data:Laboratory Tests 06/16 06/16 06/16 1651 1120 0818 Chemistry Sodium (137 - 145 MMOL/L) 138 Potassium (3.5 - 5.1 MMOL/L) 3.2 L Chloride (98 - 107 MMOL/L) 105 Carbon Dioxide (22 - 30 MMOL/L) 25 Anion Gap (14 - 24 MMOL/L) 11 L BUN (7 - 17 MG/DL) 6 L Creatinine (0.52 - 1.04 MG/DL) 0.60 Glomerular Filtr Rate > 60 Glucose (74 - 106 MG/DL) 262 H POC Glucose (60 - 99 MG/DL) 136 H 146 H Calcium (8.4 - 10.2 MG/DL) 8.3 L Magnesium (1.6 - 2.3 MG/DL) 1.5 L Laboratory Tests 12/06 0818 Hematology WBC (3.8 - 9.8 K/MM3) 11.3 H RBC (3.58 - 4.97 M/MM3) 3.43 L Hgb (11.2 - 14.9 G/DL) 10.0 L Hct (33.2 - 43.5 %) 31.7 L MCV (80.7 - 99.1 fL) 92 MCH (27.0 - 34.1 pg) 29.2 MCHC (32.2 - 35.7 %) 31.5 L RDW (12.1 - 15.2 %) 13.2 Plt Count (129 - 368 K/MM3) 164 MPV (7.4 - 10.4 fl) 11.1 H Neut % (Auto) (43 - 75 %) 77.6 H Lymph % (Auto) (14 - 44 %) 12.1 L [place] % (Auto) (4 - 13 %) 9.6 Eos % (Auto) (0 - 6 %) 0.2 Baso % (Auto) (0 - 2 %) 0.2 Neut # (Auto) (2.0 - 7.6 K/mm3) 8.75 H Lymph # (Auto) (1.0 - 3.8 K/mm3) 1.36 [place] # (Auto) (0.1 - 0.8 K/mm3) 1.08 H Eos # (Auto) (0.0 - 0.2 K/mm3) 0.02 Baso # (Auto) (0.0 - 0.2 K/mm3) 0.02 Immature Gran % (0.0 - 2.0 %) 0.3 Nucleated RBC % (0 - 1.0 %) 0.0 Nucleated RBCs # (Man) (0.0 - 0.1 K/mm3) 0.00 Laboratory Tests 12/06 0818 Chemistry Magnesium (1.6 - 2.3 MG/DL) 1.5 L Diagnosis, Assessment Plan Free Text DxA P NotesFree Text DxA P Notes:IMP: Infrarenal abdominal aortic stenosis. s/p aortic stent placement 16 mm x 16 mm x 9.5 cm Artemus endoprosthesis stent Hypertension Hyperlipidemia Diabetes Coronary artery disease PAF - s/p PVI, AFL ablation 08/2019. PAFL Pleural effusions - appear small. PLAN: Ambulate. IS Home medications. Review labs. at 1359 RPT #:[id number] OF REPORTPRProgress [id number]:20:00Z.[id number] able for patient ghpzDZIXZKVLAMQGJF8966-93-62Y79:00:00 [facility] 2021-12-06 22:29:00 [id number]+tMYH8T d/ERnbu0Dwn5mVM5S19idRUTTToSue91967-68-99Y16:29:0 0 [facility] ProgREPORT#:[id number] REPORT STATUS: SignedDATE:12/06/21 TIME: 2228 PATIENT: ALBA KAUR UNIT #: [id number]#: [id number] [address]SK[address] AGE: 76 SEX: F ATTEND: Ady Ventura AUTHOR: Trinity Hammer * ALL edits or amendments must be made on the electronic/computer document * GeneralPost-op: day 2Status post:Endovascular stent repair of the infrarenal abdominal aorta SubjectivePatient reports:No: complaints. Nursing reports:No: complaints. Comments:The patient is seen at bedside, remains on Cardene gttShe denies having any chest pain or SOB Review of SystemsConstitutional:Denies: chills, fatigue, fever, generalized weakness. Respiratory:Denies: TYLER (dyspnea on exertion), SOB. Cardiovascular:Denies: chest pain. Objective GeneralVS/I O:Last Documented: Result Date Time Pulse Ox 95 12/06 2229 Pulse 90 12/06 2230 Resp 11 12/060 O2 Delivery Nasal cannula 12/07 1999 O2 Flow Rate 2 12/06 2000 Temp 36.2 12/06 1950 FiO2 21 12/06 1340 B/P 135/50 12/04 1600 B/P Mean 78 12/04 1600 24 hour I O ending at 0700: 12/06 0700 12/05 1900 Intake Total 1595.00 260.00 Output Total Balance 1595.00 260.00 Intake, IV 1195.00 260.00 Intake, Oral 400 Number Voids 3 Patient 66.678 kg Weight PATIENT WEIGHT: Weight (lb): 147Weight (oz): 6.56Weight (kg): 66.678 Medications:Active Meds + DC'd Last 24 HrsClopidogrel Bisulfate (PLAVIX) 75 MG DAILY PO Famotidine (PEPCID SUSP) 20 MG Q12HR PO Hydralazine HCl (APRESOLINE) 10 MG Q6H PRN PRN IV Magnesium Sulfate (MAG SULFATE 2GM PREMIX) 50 ML NOW ONE IV (DC) Potassium Chloride (KLOR-CON M20) 20 MEQ NOW ONE PO (DC) Hydrocodone Bitart/Acetaminophen (NORCO 5/325 TABLET (C-II)) 1 TAB Q4H PRN PRN PO Hydrocodone Bitart/Acetaminophen (NORCO 5/325 TABLET (C-II)) 2 TAB Q4H PRN PRN PO Magnesium Hydroxide (MILK OF MAGNESIA) 30 ML ASDIR PRN PO Zolpidem Tartrate (AMBIEN (C-IV)) 5 MG BEDTIME PRN PRN PO Acetaminophen (TYLENOL) 650 MG Q4H PRN PRN PO Metoprolol Succinate (TOPROL XL) 100 MG DAILY PO Amlodipine Besylate (NORVASC TAB) 5 MG DAILY PO Famotidine (PEPCID SUSP) 20 MG Q12HR FEED-TUBE (DC) Gabapentin (NEURONTIN) 100 MG 2100 PO Aspirin (ASPIRIN EC) 81 MG DAILY PO Clopidogrel Bisulfate (PLAVIX) 75 MG DAILY FEED-TUBE (DC) Mupirocin (BACTROBAN NASAL - ADULT ICU) 1 APPLIC BID NASAL Insulin Human Lispro (HumaLOG) LOW DOSE SLIDING SCALE AC HS SUBQ Dextrose/Water (DEXTROSE 50% IN WATER) 12.5 GM ASDIR PRN IV Dextrose/Water (DEXTROSE 50% IN WATER) 25 GM ASDIR PRN IV Acetaminophen (ACETAMINOPHEN LIQUID) 650 MG Q4H PRN PRN FEED-TUBE (DC) Nicardipine HCl (CARDENE I.V.) 25 MG ASDIR IV (CKD) Sodium Chloride (SODIUM CHLORIDE 0.9%) 250 MLBenzocaine/Menthol (Cepacol Sore Throat Lozenge) 1 TAB Q2H PRN PRN MM (CKD) Bisacodyl (BISACODYL SUPP) 10 MG ASDIR PRN RECTAL Calcium Gluconate/Sodium Chloride (Calcium Gluconate 1 GM/100ML NS) 100 ML ASDIR PRN IV Hydrocodone Bitart/Acetaminophen (NORCO 5/325 TABLET (C-II)) 1 TAB Q4H PRN PRN FEED-TUBE (DC) Hydrocodone Bitart/Acetaminophen (NORCO 5/325 TABLET (C-II)) 2 TAB Q4H PRN PRN FEED-TUBE (DC) Meperidine HCl (DEMEROL (C-II)) 25 MG Q4H PRN PRN IM Meperidine HCl (DEMEROL (C-II)) 50 MG Q4H PRN PRN IM Nicardipine HCl (CARDENE I.V.) 25 MG ASDIR PRN IV (CKD) Sodium Chloride (SODIUM CHLORIDE 0.9%) 250 MLOndansetron HCl (ZOFRAN) 4 MG Q8H PRN PRN IV Phenol (CHLORASEPTIC) 5 SPRAY Q2H PRN PRN MM Potassium Chloride (Potassium Chloride) 50 ML ASDIR PRN IV Potassium Chloride/Dextrose/Sod Cl (DEXTROSE 5%-1/2NS-KCL 20MEQ) 1,000 ML Q12H IV (DC) Cefuroxime Sodium (ZINACEF) 1.5 GM PREOP IV (CKD) Sodium Chloride (SODIUM CHLORIDE 0.9%) 16 MLMagnesium Hydroxide (MILK OF MAGNESIA) 30 ML ASDIR PRN FEED-TUBE (DC) Zolpidem Tartrate (AMBIEN (C-IV)) 5 MG BEDTIME PRN PRN FEED-TUBE (DC) Physical ExamGeneral appearance: alert, awake, oriented, no acute distressWound/incision: Location: left groin Site condition: dressing clean dry, no drainage, no erythemaNeck: non-tender, no masses or swellingCardiovascular: BP/pulses equal bilat., normal heart sounds, regular rate rhythmRespiratory: aerating wellAbdomen: soft, non-tender, normal bowel soundsExtremities: no edemaNeuro/WIRE SAWYER: alert, oriented X 3 ResultsFindings/Data:Laboratory Tests 12/06 12/06 12/06 12/06 1651 1120 0818 0617 Chemistry Sodium (137 - 145 MMOL/L) 138 Potassium (3.5 - 5.1 MMOL/L) 3.2 L Chloride (98 - 107 MMOL/L) 105 Carbon Dioxide (22 - 30 MMOL/L) 25 Anion Gap (14 - 24 MMOL/L) 11 L BUN (7 - 17 MG/DL) 6 L Creatinine (0.52 - 1.04 MG/DL) 0.60 Glomerular Filtr Rate > 60 Glucose (74 - 106 MG/DL) 262 H POC Glucose (60 - 99 MG/DL) 136 H 146 H 175 H Calcium (8.4 - 10.2 MG/DL) 8.3 L Magnesium (1.6 - 2.3 MG/DL) 1.5 L Laboratory Tests 12/06 0818 Hematology WBC (3.8 - 9.8 K/MM3) 11.3 H RBC (3.58 - 4.97 M/MM3) 3.43 L Hgb (11.2 - 14.9 G/DL) 10.0 L Hct (33.2 - 43.5 %) 31.7 L MCV (80.7 - 99.1 fL) 92 MCH (27.0 - 34.1 pg) 29.2 MCHC (32.2 - 35.7 %) 31.5 L RDW (12.1 - 15.2 %) 13.2 Plt Count (129 - 368 K/MM3) 164 MPV (7.4 - 10.4 fl) 11.1 H Neut % (Auto) (43 - 75 %) 77.6 H Lymph % (Auto) (14 - 44 %) 12.1 L [place] % (Auto) (4 - 13 %) 9.6 Eos % (Auto) (0 - 6 %) 0.2 Baso % (Auto) (0 - 2 %) 0.2 Neut # (Auto) (2.0 - 7.6 K/mm3) 8.75 H Lymph # (Auto) (1.0 - 3.8 K/mm3) 1.36 [place] # (Auto) (0.1 - 0.8 K/mm3) 1.08 H Eos # (Auto) (0.0 - 0.2 K/mm3) 0.02 Baso # (Auto) (0.0 - 0.2 K/mm3) 0.02 Immature Gran % (0.0 - 2.0 %) 0.3 Nucleated RBC % (0 - 1.0 %) 0.0 Nucleated RBCs # (Man) (0.0 - 0.1 K/mm3) 0.00 Diagnosis, Assessment PlanFree Text A P:The patient with stenosis of kofi distal infrarenal abdominal aorta with small aneurysmS/p Endovascular stent repair of the infrarenal aortaCAD Hypertension on Cardene gttHyperlipidemiaS/p Right CEADiabetesH/O atrial fibrillation PLAN:Encourage use of IS and ambulationTolerating her diet wellHome tomorrow once BP is stable.D/C central line at 2237 at 1718 RPT #:[id number] OF REPORTPRProgress rrky0490-76-37C91:29:00Z.[id number] able for patient kjjbEQKFSOYAEUAQXD1871-10-68J26:37:36 [facility] 2021-12-06 17:22:00 [id number]/SG q35+jgsWqfUU34lZCCZr/fnocvhk4EM4787-68-32K51:22:0 0 [facility] ([facility])Cardiology Progress NoteREPORT#:[id number] REPORT STATUS: SignedDATE:12/06/21 TIME: 1722 PATIENT: ALBA KAUR UNIT #: [id number]#: [id number] [facility] AGE: 76 SEX: F ATTEND: Ady Ventura [facility] AUTHOR: Skinny Cantu MD * ALL edits or amendments must be made on the electronic/computer document * SubjectiveChief complaint:AAAPatient reports:No: chest pain, palpitations, shortness of breath. Objective GeneralVS/I O:24 hour I O ending at 0700: 12/06 0700 12/05 1900 Intake Total 1595.00 260.00 Output Total Balance 1595.00 260.00 Intake, IV 1195.00 260.00 Intake, Oral 400 Number Voids 3 Patient 66.678 kg Weight Vital Signs: Date Time Temp Pulse Resp B/P B/P Pulse O2 O2 Flow FiO2 Mean Ox Delivery Rate 12/06 1340 99 Room air 21 12/06 1230 86 23 12/06 1200 96 95 12/06 1130 116 97 12/06 1125 99.1 116 18 96 Room air 12/06 1100 96 94 12/06 1045 98 21 12/06 1000 112 22 92 / 0930 96 22 92 /16 0900 95 96 / 0845 100 / 0830 106 95 12/06 0815 101 /16 0800 96 20 100 / 0800 99.0 100 20 95 Room air / 0745 95 23 100 /16 0730 92 20 100 /16 0715 101 28 99 /16 0700 92 24 100 /16 0645 88 22 99 /16 0630 87 24 98 /16 0615 89 24 97 /16 0600 94 12 97 /16 0530 91 99 /16 0515 88 15 100 12/06 0500 88 100 /16 0445 107 12 99 /16 0430 91 19 99 /16 0415 88 16 99 /16 0400 97.4 Nasal 2 cannula 12/06 0400 90 21 99 /16 0345 90 21 98 /16 0330 91 98 12/06 0315 97 12 98 06/16 0300 88 18 99 06/16 0245 85 100 06/16 0230 87 100 /16 0215 89 100 /16 0200 93 19 99 06/16 0145 89 100 06/16 0130 88 100 06/16 0115 88 10 100 06/16 0100 100 Nasal 4 36 cannula 12/06 0100 86 19 100 06/16 0045 85 23 100 06/16 0030 85 21 99 /16 0000 98.0 Nasal 1 cannula 12/06 0000 88 100 /15 2345 89 15 100 /15 2330 97 100 /15 2315 87 100 /15 2300 86 18 100 /15 2245 90 100 /15 2230 98 20 93 / 2215 96 25 94 / 2200 96 20 92 / 2145 96 28 94 / 2130 96 25 92 / 2115 95 27 96 / 2100 97 24 95 /5 93 16 97 /2029 92 26 98 12/05 2014 96 13 96 12/06 1999 Nasal 3 cannula 12/06 1999 93 16 97 12/05 195 98.0 Nasal 3 cannula 12/05 194 96 14 98 / 1930 97 97 12/05 1915 97 16 97 12/05 1900 94 23 96 PATIENT WEIGHT: Weight (lb): 147Weight (oz): 6.56Weight (kg): 66.678 Medications:Active Meds + DC'd Last 24 HrsClopidogrel Bisulfate (PLAVIX) 75 MG DAILY PO Famotidine (PEPCID SUSP) 20 MG Q12HR PO Magnesium Sulfate (MAG SULFATE 2GM PREMIX) 50 ML NOW ONE IV (DC) Potassium Chloride (KLOR-CON M20) 20 MEQ NOW ONE PO (DC) Hydrocodone Bitart/Acetaminophen (NORCO 5/325 TABLET (C-II)) 1 TAB Q4H PRN PRN PO Hydrocodone Bitart/Acetaminophen (NORCO 5/325 TABLET (C-II)) 2 TAB Q4H PRN PRN PO Magnesium Hydroxide (MILK OF MAGNESIA) 30 ML ASDIR PRN PO Zolpidem Tartrate (AMBIEN (C-IV)) 5 MG BEDTIME PRN PRN PO Acetaminophen (TYLENOL) 650 MG Q4H PRN PRN PO Metoprolol Succinate (TOPROL XL) 100 MG DAILY PO Amlodipine Besylate (NORVASC TAB) 5 MG DAILY PO Famotidine (PEPCID SUSP) 20 MG Q12HR FEED-TUBE (DC) Gabapentin (NEURONTIN) 100 MG 2100 PO Aspirin (ASPIRIN EC) 81 MG DAILY PO Clopidogrel Bisulfate (PLAVIX) 75 MG DAILY FEED-TUBE (DC) Mupirocin (BACTROBAN NASAL - ADULT ICU) 1 APPLIC BID NASAL Insulin Human Lispro (HumaLOG) LOW DOSE SLIDING SCALE AC HS SUBQ Dextrose/Water (DEXTROSE 50% IN WATER) 12.5 GM ASDIR PRN IV Dextrose/Water (DEXTROSE 50% IN WATER) 25 GM ASDIR PRN IV Acetaminophen (ACETAMINOPHEN LIQUID) 650 MG Q4H PRN PRN FEED-TUBE (DC) Nicardipine HCl (CARDENE I.V.) 25 MG ASDIR IV (CKD) Sodium Chloride (SODIUM CHLORIDE 0.9%) 250 MLAcetylcysteine (NAC) 600 MG BID PO (DC) Benzocaine/Menthol (Cepacol Sore Throat Lozenge) 1 TAB Q2H PRN PRN MM (CKD) Bisacodyl (BISACODYL SUPP) 10 MG ASDIR PRN RECTAL Calcium Gluconate/Sodium Chloride (Calcium Gluconate 1 GM/100ML NS) 100 ML ASDIR PRN IV Hydrocodone Bitart/Acetaminophen (NORCO 5/325 TABLET (C-II)) 1 TAB Q4H PRN PRN FEED-TUBE (DC) Hydrocodone Bitart/Acetaminophen (NORCO 5/325 TABLET (C-II)) 2 TAB Q4H PRN PRN FEED-TUBE (DC) Meperidine HCl (DEMEROL (C-II)) 25 MG Q4H PRN PRN IM Meperidine HCl (DEMEROL (C-II)) 50 MG Q4H PRN PRN IM Nicardipine HCl (CARDENE I.V.) 25 MG ASDIR PRN IV (CKD) Sodium Chloride (SODIUM CHLORIDE 0.9%) 250 MLOndansetron HCl (ZOFRAN) 4 MG Q8H PRN PRN IV Phenol (CHLORASEPTIC) 5 SPRAY Q2H PRN PRN MM Potassium Chloride (Potassium Chloride) 50 ML ASDIR PRN IV Potassium Chloride/Dextrose/Sod Cl (DEXTROSE 5%-1/2NS-KCL 20MEQ) 1,000 ML Q12H IV (DC) Cefuroxime Sodium (ZINACEF) 1.5 GM PREOP IV (CKD) Sodium Chloride (SODIUM CHLORIDE 0.9%) 16 MLMagnesium Hydroxide (MILK OF MAGNESIA) 30 ML ASDIR PRN FEED-TUBE (DC) Zolpidem Tartrate (AMBIEN (C-IV)) 5 MG BEDTIME PRN PRN FEED-TUBE (DC) Physical ExamGeneral appearance: alert, awake, orientedHead/Eyes: atraumatic, normocephalicENT: moist mucosal membranesNeck: no JVDCardiovascular: CV assessment: regular rate and rhythmRespiratory: clear to auscultation, no distressAbdomen: soft, non-tenderLower extremity: LE assessment: no edemaMusculoskeletal: full range of motionNeuro/WIRE SAWYER: alert, oriented X 3, CN II-XII intactSkin: dry, intactWound/incision: Site condition: dressing clean dry, no drainagePsychiatry: normal affect, normal judgment/insight, normal mood ResultsFindings/Data:Laboratory Tests 12/06 12/06 12/06 12/06 1651 1120 [id number] Chemistry Sodium (137 - 145 MMOL/L) 138 Potassium (3.5 - 5.1 MMOL/L) 3.2 L Chloride (98 - 107 MMOL/L) 105 Carbon Dioxide (22 - 30 MMOL/L) 25 Anion Gap (14 - 24 MMOL/L) 11 L BUN (7 - 17 MG/DL) 6 L Creatinine (0.52 - 1.04 MG/DL) 0.60 Glomerular Filtr Rate > 60 Glucose (74 - 106 MG/DL) 262 H POC Glucose (60 - 99 MG/DL) 136 H 146 H 175 H Calcium (8.4 - 10.2 MG/DL) 8.3 L Magnesium (1.6 - 2.3 MG/DL) 1.5 L Laboratory Tests 12/06 0818 Hematology WBC (3.8 - 9.8 K/MM3) 11.3 H RBC (3.58 - 4.97 M/MM3) 3.43 L Hgb (11.2 - 14.9 G/DL) 10.0 L Hct (33.2 - 43.5 %) 31.7 L MCV (80.7 - 99.1 fL) 92 MCH (27.0 - 34.1 pg) 29.2 MCHC (32.2 - 35.7 %) 31.5 L RDW (12.1 - 15.2 %) 13.2 Plt Count (129 - 368 K/MM3) 164 MPV (7.4 - 10.4 fl) 11.1 H Neut % (Auto) (43 - 75 %) 77.6 H Lymph % (Auto) (14 - 44 %) 12.1 L [place] % (Auto) (4 - 13 %) 9.6 Eos % (Auto) (0 - 6 %) 0.2 Baso % (Auto) (0 - 2 %) 0.2 Neut # (Auto) (2.0 - 7.6 K/mm3) 8.75 H Lymph # (Auto) (1.0 - 3.8 K/mm3) 1.36 [place] # (Auto) (0.1 - 0.8 K/mm3) 1.08 H Eos # (Auto) (0.0 - 0.2 K/mm3) 0.02 Baso # (Auto) (0.0 - 0.2 K/mm3) 0.02 Immature Gran % (0.0 - 2.0 %) 0.3 Nucleated RBC % (0 - 1.0 %) 0.0 Nucleated RBCs # (Man) (0.0 - 0.1 K/mm3) 0.00 Laboratory Tests 12/06 0818 Chemistry Magnesium (1.6 - 2.3 MG/DL) 1.5 L Diagnosis, Assessment Plan Free Text DxA P NotesFree Text DxA P Notes:IMP: Infrarenal abdominal aortic stenosis. s/p aortic stent placement 16 mm x 16 mm x 9.5 cm Artemus endoprosthesis stent Hypertension Hyperlipidemia Diabetes Coronary artery disease PAF - s/p PVI, AFL ablation 08/2019. PAFL Pleural effusions - appear small. PLAN: Ambulate. IS Replace lytes. Home medications. at 1528 RPT #:[id number] OF REPORTPRProgress [id number]:22:00Z.[id number] able for patient [id number]:25:40 [facility] 2021-12-06 17:22:00 [id number] [id number]+5T/MrZj74yZ6/Q+Ge51IgZ9863-50-48K62:22:0 0 [facility] ([facility])Hospitalist Progress NoteREPORT#:[id number] REPORT STATUS: SignedDATE:12/06/21 TIME: 1721 PATIENT: ALBA KAUR UNIT #: [id number]#: [id number] [address] AGE: 76 SEX: F ATTEND: Ady Ventura [facility] AUTHOR: Katrina Ambrocio MD * ALL edits or amendments must be made on the electronic/computer document * SubjectiveHPI:This is a 76 year old female with h/o hypertension, hyperlipidemia, diabetes, CAD with 4 stents, PAF, PAFL, PVI/AFL ablation 08/2019, distal aortic stenosis, which underwent aortic stent placement today. Patient was seen in surgical ICU after surgery today. Patient currently denies any chest pain, shortness of breath, dizziness, lightheaded, fever, chills, abdominal pain, diarrhea or constipation. Vital signs stable. Blood pressure mildly elevated. Labs significant for elevated blood glucose. Patient currently on Cardene drip. Free Text Subj NotesFree Text Subj Notes:Patient is doing better today. She is sitting in a chair comfortably watching TV. She denies any chest pain shortness of breath. Vital signs stable. She isbreathing well on room air. Review of SystemsAll systems rev neg: except as marked Objective GeneralVS/I O:Vital Signs: Date Time Temp Pulse Resp B/P B/P Pulse O2 O2 Flow FiO2 Mean Ox Delivery Rate 12/07 0030 90 19 95 12/07 0015 95 96 12/07 0000 36.3 Room air 2 12/07 0000 93 19 94 12/06 2345 96 23 12/06 2330 94 18 12/06 2315 93 21 12/06 2300 92 23 12/06 2245 91 22 06/16 2230 90 11 95 06/16 2215 94 15 95 06/16 2200 89 15 100 06/16 2145 88 100 06/16 2130 87 100 06/16 2115 88 100 06/16 2100 91 18 06/16 2045 89 11 92 06/16 2030 88 93 06/16 2015 89 20 94 06/16 1999 Nasal 2 cannula 06/16 2000 90 20 94 06/16 1950 36.2 Nasal 2 cannula 06/16 1945 87 06/16 1930 84 92 06/16 1915 85 11 91 06/16 1900 90 25 98 06/16 1845 86 20 91 06/16 1830 87 17 90 06/16 1815 88 16 90 06/16 1800 36.3 06/16 1800 93 10 89 06/16 1745 95 13 92 06/16 1730 94 16 95 06/16 1715 93 06/16 1645 99 29 96 06/16 1630 101 28 97 06/16 1615 98 33 99 06/16 1600 96 30 90 06/16 1545 96 28 90 06/16 1530 101 21 97 06/16 1515 91 29 91 06/16 1500 90 29 92 06/16 1445 91 32 93 06/16 1430 90 17 96 06/16 1415 93 20 98 06/16 1400 93 28 92 06/16 1345 92 26 93 06/16 1340 99 Room air 21 06/16 1330 88 22 94 06/16 1315 93 15 96 06/16 1300 93 13 97 06/16 1245 85 26 93 06/16 1230 86 23 06/16 1230 95 06/16 1200 28 06/16 1200 36.1 06/16 1200 96 95 06/16 1130 116 97 06/16 1125 37.3 116 18 96 Room air 06/16 1100 96 94 06/16 1045 98 21 06/16 1000 112 22 92 06/16 0930 96 22 92 06/16 0900 95 96 06/16 0845 100 06/16 0830 106 95 06/16 0815 101 06/16 0800 96 20 100 06/16 0800 37.2 100 20 95 Room air 06/16 0745 95 23 100 06/16 0730 92 20 100 06/16 0715 101 28 99 06/16 0700 92 24 100 06/16 0645 88 22 99 06/16 0630 87 24 98 06/16 0615 89 24 97 06/16 0600 94 12 97 12/06 0530 91 99 12/06 0515 88 15 100 12/06 0500 88 100 12/06 0445 107 12 99 12/06 0430 91 19 99 12/06 0415 88 16 99 12/06 0400 36.3 Nasal 2 cannula 12/06 0400 90 21 99 12/06 0345 90 21 98 12/06 0330 91 98 12/06 0315 97 12 98 12/06 0300 88 18 99 12/06 0245 85 100 12/06 0230 87 100 12/06 0215 89 100 12/06 0200 93 19 99 12/06 0145 89 100 12/06 0130 88 100 12/06 0115 88 10 100 24 hour I O ending at 0700: 12/07 0700 12/06 1900 Intake Total 640.00 1239.50 Output Total Balance 640.00 1239.50 Intake, IV 290.00 559.50 Intake, Oral 350 680 Number Voids 1 2 PATIENT WEIGHT: Weight (lb): 147Weight (oz): 6.56Weight (kg): 66.678 Medications:Active Meds + DC'd Last 24 HrsClopidogrel Bisulfate (PLAVIX) 75 MG DAILY PO Famotidine (PEPCID SUSP) 20 MG Q12HR PO Hydralazine HCl (APRESOLINE) 10 MG Q6H PRN PRN IV Magnesium Sulfate (MAG SULFATE 2GM PREMIX) 50 ML NOW ONE IV (DC) Potassium Chloride (KLOR-CON M20) 20 MEQ NOW ONE PO (DC) Hydrocodone Bitart/Acetaminophen (NORCO 5/325 TABLET (C-II)) 1 TAB Q4H PRN PRN PO Hydrocodone Bitart/Acetaminophen (NORCO 5/325 TABLET (C-II)) 2 TAB Q4H PRN PRN PO Magnesium Hydroxide (MILK OF MAGNESIA) 30 ML ASDIR PRN PO Zolpidem Tartrate (AMBIEN (C-IV)) 5 MG BEDTIME PRN PRN PO Acetaminophen (TYLENOL) 650 MG Q4H PRN PRN PO Metoprolol Succinate (TOPROL XL) 100 MG DAILY PO Amlodipine Besylate (NORVASC TAB) 5 MG DAILY PO Famotidine (PEPCID SUSP) 20 MG Q12HR FEED-TUBE (DC) Gabapentin (NEURONTIN) 100 MG 2100 PO Aspirin (ASPIRIN EC) 81 MG DAILY PO Clopidogrel Bisulfate (PLAVIX) 75 MG DAILY FEED-TUBE (DC) Mupirocin (BACTROBAN NASAL - ADULT ICU) 1 APPLIC BID NASAL Insulin Human Lispro (HumaLOG) LOW DOSE SLIDING SCALE AC HS SUBQ Dextrose/Water (DEXTROSE 50% IN WATER) 12.5 GM ASDIR PRN IV Dextrose/Water (DEXTROSE 50% IN WATER) 25 GM ASDIR PRN IV Acetaminophen (ACETAMINOPHEN LIQUID) 650 MG Q4H PRN PRN FEED-TUBE (DC) Nicardipine HCl (CARDENE I.V.) 25 MG ASDIR IV (CKD) Sodium Chloride (SODIUM CHLORIDE 0.9%) 250 MLBenzocaine/Menthol (Cepacol Sore Throat Lozenge) 1 TAB Q2H PRN PRN MM (CKD) Bisacodyl (BISACODYL SUPP) 10 MG ASDIR PRN RECTAL Calcium Gluconate/Sodium Chloride (Calcium Gluconate 1 GM/100ML NS) 100 ML ASDIR PRN IV Hydrocodone Bitart/Acetaminophen (NORCO 5/325 TABLET (C-II)) 1 TAB Q4H PRN PRN FEED-TUBE (DC) Hydrocodone Bitart/Acetaminophen (NORCO 5/325 TABLET (C-II)) 2 TAB Q4H PRN PRN FEED-TUBE (DC) Meperidine HCl (DEMEROL (C-II)) 25 MG Q4H PRN PRN IM Meperidine HCl (DEMEROL (C-II)) 50 MG Q4H PRN PRN IM Nicardipine HCl (CARDENE I.V.) 25 MG ASDIR PRN IV (CKD) Sodium Chloride (SODIUM CHLORIDE 0.9%) 250 MLOndansetron HCl (ZOFRAN) 4 MG Q8H PRN PRN IV Phenol (CHLORASEPTIC) 5 SPRAY Q2H PRN PRN MM Potassium Chloride (Potassium Chloride) 50 ML ASDIR PRN IV Potassium Chloride/Dextrose/Sod Cl (DEXTROSE 5%-1/2NS-KCL 20MEQ) 1,000 ML Q12H IV (DC) Cefuroxime Sodium (ZINACEF) 1.5 GM PREOP IV (CKD) Sodium Chloride (SODIUM CHLORIDE 0.9%) 16 MLMagnesium Hydroxide (MILK OF MAGNESIA) 30 ML ASDIR PRN FEED-TUBE (DC) Zolpidem Tartrate (AMBIEN (C-IV)) 5 MG BEDTIME PRN PRN FEED-TUBE (DC) Nutrition assessment:The data set between the solid lines has been imported from the dietitian's assessment. Any exceptions have been noted under Provider comments. BMI Calculated: 21.7Nutrition related diagnosis: Nutrition diagnosis details: Nutrition problem: Nutrition etiology: Nutrition signs and symptoms: Nutrition prescription: Dietitian name: Assessment completed: Provider comments on imported dietitian assessment: Physical ExamHead/Eyes: atraumatic, clear cornea, EOMI, normal conjunctiva/sclera, normal eyelids/periorb., normocephalic, PERRLENT: normal dentition, normal ear left, normal ear right, normal nose, normal pharynx, normal sinusNeck: full range of motion, non-tender, normal thyroid, supple/no meningismus, no bruit/NL carotids, no JVD, no masses or swellingCardiovascular: normal capillary refill, normal heart soundsRespiratory: clear to auscultation, no distressAbdomen: non-tender, normal bowel sounds, soft, no distention, no guarding, no hernia, no mass/organomegaly, no reboundExtremities: moves all, normal capillary refill, normal range of motion, no edemaMusculoskeletal: normal inspection, painless range of motionNeuro/WIRE SAWYER: alert, oriented X 3 ResultsFindings/Data:Laboratory Tests 12/06 12/06 12/06 12/06 1651 1120 0818 0617 Chemistry Sodium (137 - 145 MMOL/L) 138 Potassium (3.5 - 5.1 MMOL/L) 3.2 L Chloride (98 - 107 MMOL/L) 105 Carbon Dioxide (22 - 30 MMOL/L) 25 Anion Gap (14 - 24 MMOL/L) 11 L BUN (7 - 17 MG/DL) 6 L Creatinine (0.52 - 1.04 MG/DL) 0.60 Glomerular Filtr Rate > 60 Glucose (74 - 106 MG/DL) 262 H POC Glucose (60 - 99 MG/DL) 136 H 146 H 175 H Calcium (8.4 - 10.2 MG/DL) 8.3 L Magnesium (1.6 - 2.3 MG/DL) 1.5 L Laboratory Tests 12/06 0818 Hematology WBC (3.8 - 9.8 K/MM3) 11.3 H RBC (3.58 - 4.97 M/MM3) 3.43 L Hgb (11.2 - 14.9 G/DL) 10.0 L Hct (33.2 - 43.5 %) 31.7 L MCV (80.7 - 99.1 fL) 92 MCH (27.0 - 34.1 pg) 29.2 MCHC (32.2 - 35.7 %) 31.5 L RDW (12.1 - 15.2 %) 13.2 Plt Count (129 - 368 K/MM3) 164 MPV (7.4 - 10.4 fl) 11.1 H Neut % (Auto) (43 - 75 %) 77.6 H Lymph % (Auto) (14 - 44 %) 12.1 L [place] % (Auto) (4 - 13 %) 9.6 Eos % (Auto) (0 - 6 %) 0.2 Baso % (Auto) (0 - 2 %) 0.2 Neut # (Auto) (2.0 - 7.6 K/mm3) 8.75 H Lymph # (Auto) (1.0 - 3.8 K/mm3) 1.36 [place] # (Auto) (0.1 - 0.8 K/mm3) 1.08 H Eos # (Auto) (0.0 - 0.2 K/mm3) 0.02 Baso # (Auto) (0.0 - 0.2 K/mm3) 0.02 Immature Gran % (0.0 - 2.0 %) 0.3 Nucleated RBC % (0 - 1.0 %) 0.0 Nucleated RBCs # (Man) (0.0 - 0.1 K/mm3) 0.00 Diagnosis, Assessment Plan Free Text DxA P NotesFree text DxA P notes:Assessment and plan#Distal aortic stenosis state post stent placementDoing well postop. Surgical ICUWe will continue aspirin and Plavix and statinWill resume other home medication #Uncontrolled hypertension We will continue Cardene drip for now.Was blood pressure better controlled, we will resume her home medications #History of diabetesWe will continue insulin sliding scale for nowSend F2fFjkf resume home medication once verified #HypokalemiaReplace and monitor #HypomagnesemiaReplaceMonitor #History of CAD state post stentsWe will continue her home aspirin and PlavixWe will Toprol and losartanWe will continue Lipitor #History of paroxysmal A. fibWe will continue her home Xarelto if is okay with cardiovascular surgeonContinue ToprolHeart rate currently stable.Cardiology is following #LeukocytosisStable Ancef perioperativeAfebrile.No signs of active infectionWe will continue to monitor DVT prophylaxis with sequential compression device. We will start her home Xarelto if is okay with cardiovascular surgeonDisposition: We will continue monitoring surgical ICU. Discharge home at the discretion of cardiovascular surgeonTime spent on patient care and care coordination: 38 minutes Quality: Gen Med Crit Care VTE ProphylaxisVTE prophylaxis initiated: yes Current MedicationsCurrent medication review:I attest that the foregoing medication list in the medical record is true, accurate, and complete to the best of my knowledge. Advanced Care Plan 65 or OlderDiscussed with: patientDiscussion included: code status (full code) at 0103 RPT #:[id number] OF REPORTPRProgress [id number]:22:00Z.[id number] able for patient [id number]:03:44 [facility] 2021-12-05 23:56:00 [id number] [id number]R5012-30-34L93:56:0 0 [facility] ([facility])Hospitalist Progress NoteREPORT#:[id number] REPORT STATUS: SignedDATE:12/05/21 TIME: 2355 PATIENT: ALBA KAUR UNIT #: [id number]#: [id number] [address]-NYPQ: 47 AGE: 76 SEX: F ATTEND: Ady Ventura AUTHOR: Katrina Ambrocio MD * ALL edits or amendments must be made on the electronic/computer document * SubjectiveHPI:This is a 76 year old female with h/o hypertension, hyperlipidemia, diabetes, CAD with 4 stents, PAF, PAFL, PVI/AFL ablation 08/2019, distal aortic stenosis, which underwent aortic stent placement today. Patient was seen in surgical ICU after surgery today. Patient currently denies any chest pain, shortness of breath, dizziness, lightheaded, fever, chills, abdominal pain, diarrhea or constipation. Vital signs stable. Blood pressure mildly elevated. Labs significant for elevated blood glucose. Patient currently on Cardene drip. Free Text Subj NotesFree Text Subj Notes:Patient sitting in chair comfortably. She denies any chest pain or shortness ofbreath. Still on Cardene drip. Blood pressure well controlled. Afebrile. Review of SystemsAll systems rev neg: except as marked Objective GeneralVS/I O:Vital Signs: Date Time Temp Pulse Resp B/P B/P Pulse O2 O2 Flow FiO2 Mean Ox Delivery Rate 12/06 0115 88 10 100 12/06 0100 86 19 100 12/06 0045 85 23 100 12/06 0030 85 21 99 12/06 0000 36.7 Nasal 1 cannula 12/06 0000 88 100 12/05 2345 89 15 100 12/05 2330 97 100 12/05 2315 87 100 12/05 2300 86 18 100 12/05 2245 90 100 12/05 2230 98 20 93 12/05 2215 96 25 94 12/05 2200 96 20 92 12/05 2145 96 28 94 12/05 2130 96 25 92 12/05 2114 95 27 96 12/05 2099 97 24 95 12/05 2044 93 16 97 06/15 2030 92 26 98 06/15 2014 96 13 96 06/15 2000 Nasal 3 cannula 06/15 1999 93 16 97 06/15 1955 36.7 Nasal 3 cannula 06/15 1945 96 14 98 06/15 1930 97 97 06/15 1915 97 16 97 06/15 1900 94 23 96 06/15 1640 90 10 97 06/15 1630 89 23 99 06/15 1615 83 12 97 06/15 1600 36.8 06/15 1600 88 17 95 06/15 1545 88 17 95 06/15 1530 88 19 97 06/15 1515 90 17 96 06/15 1500 87 23 92 06/15 1445 88 19 93 06/15 1430 87 24 93 06/15 1415 87 12 97 06/15 1400 96 42 97 06/15 1345 92 26 96 06/15 1330 92 23 94 06/15 1315 85 22 95 06/15 1300 84 19 98 06/15 1245 81 19 100 06/15 1230 80 18 99 06/15 1215 87 17 98 06/15 1200 94 17 96 06/15 1145 90 23 92 06/15 1130 91 23 89 06/15 1115 78 20 92 06/15 1030 78 13 100 06/15 1015 77 15 100 06/15 1002 100 Nasal 3 32 cannula 06/15 1000 76 14 100 06/15 0945 83 23 100 06/15 0930 78 16 100 06/15 0915 75 16 100 06/15 0900 79 13 100 06/15 0845 79 16 100 06/15 0830 84 23 100 06/15 0815 77 20 100 06/15 0800 36.7 06/15 0800 Nasal 3 cannula 06/15 0800 85 23 100 06/15 0745 78 12 99 06/15 0730 80 11 100 06/15 0715 85 21 06/15 0700 83 12 100 06/15 0645 83 13 99 06/15 0630 79 17 100 06/15 0615 77 16 100 06/15 0600 75 17 100 06/15 0545 75 10 100 06/15 0530 77 19 98 06/15 0515 79 17 98 06/15 0500 78 18 98 06/15 0445 78 18 98 06/15 0430 81 20 100 06/15 0415 79 19 100 06/15 0400 81 16 100 06/15 0345 81 15 100 06/15 0330 94 20 100 06/15 0315 77 16 100 12/05 0300 75 14 100 12/05 0245 75 18 100 12/05 0230 75 16 99 12/05 0215 78 15 100 12/05 0200 74 17 100 12/05 0145 76 18 100 12/05 0130 76 17 100 24 hour I O ending at 0700: 12/06 0700 12/05 1900 Intake Total 895.00 260.00 Output Total Balance 895.00 260.00 Intake, IV 695.00 260.00 Intake, Oral 200 Number Voids 2 Patient 66.678 kg Weight PATIENT WEIGHT: Weight (lb): 147Weight (oz): 6.56Weight (kg): 66.678 Medications:Active Meds + DC'd Last 24 HrsAmlodipine Besylate (NORVASC TAB) 5 MG DAILY PO Famotidine (PEPCID SUSP) 20 MG Q12HR FEED-TUBE Gabapentin (NEURONTIN) 100 MG 2100 PO Heparin Sodium (HEPARIN SODIUM) 10,000 UNITS .STK-MED ONE Z (DC) Aspirin (ASPIRIN EC) 81 MG DAILY PO Clopidogrel Bisulfate (PLAVIX) 75 MG DAILY FEED-TUBE Famotidine (PEPCID) 20 MG Q12HR IV (DC) Mupirocin (BACTROBAN NASAL - ADULT ICU) 1 APPLIC BID NASAL Insulin Human Lispro (HumaLOG) LOW DOSE SLIDING SCALE AC HS SUBQ Dextrose/Water (DEXTROSE 50% IN WATER) 12.5 GM ASDIR PRN IV Dextrose/Water (DEXTROSE 50% IN WATER) 25 GM ASDIR PRN IV Acetaminophen (ACETAMINOPHEN LIQUID) 650 MG Q4H PRN PRN FEED-TUBE Nicardipine HCl (CARDENE I.V.) 25 MG ASDIR IV (CKD) Sodium Chloride (SODIUM CHLORIDE 0.9%) 250 MLAcetylcysteine (NAC) 600 MG BID PO (DC) Benzocaine/Menthol (Cepacol Sore Throat Lozenge) 1 TAB Q2H PRN PRN MM (CKD) Bisacodyl (BISACODYL SUPP) 10 MG ASDIR PRN RECTAL Calcium Gluconate/Sodium Chloride (Calcium Gluconate 1 GM/100ML NS) 100 ML ASDIR PRN IV Cefazolin Sodium (ANCEF) 1 GM Q8H IV (DC) Hydrocodone Bitart/Acetaminophen (NORCO 5/325 TABLET (C-II)) 1 TAB Q4H PRN PRN FEED-TUBE Hydrocodone Bitart/Acetaminophen (NORCO 5/325 TABLET (C-II)) 2 TAB Q4H PRN PRN FEED-TUBE Meperidine HCl (DEMEROL (C-II)) 25 MG Q4H PRN PRN IM Meperidine HCl (DEMEROL (C-II)) 50 MG Q4H PRN PRN IM Nicardipine HCl (CARDENE I.V.) 25 MG ASDIR PRN IV (CKD) Sodium Chloride (SODIUM CHLORIDE 0.9%) 250 MLOndansetron HCl (ZOFRAN) 4 MG Q8H PRN PRN IV Phenol (CHLORASEPTIC) 5 SPRAY Q2H PRN PRN MM Potassium Chloride (Potassium Chloride) 50 ML ASDIR PRN IV Potassium Chloride/Dextrose/Sod Cl (DEXTROSE 5%-1/2NS-KCL 20MEQ) 1,000 ML Q12H IV Cefuroxime Sodium (ZINACEF) 1.5 GM PREOP IV (CKD) Sodium Chloride (SODIUM CHLORIDE 0.9%) 16 MLMagnesium Hydroxide (MILK OF MAGNESIA) 30 ML ASDIR PRN FEED-TUBE Zolpidem Tartrate (AMBIEN (C-IV)) 5 MG BEDTIME PRN PRN FEED-TUBE Nutrition assessment:The data set between the solid lines has been imported from the dietitian's assessment. Any exceptions have been noted under Provider comments. BMI Calculated: 21.7Nutrition related diagnosis: Nutrition diagnosis details: Nutrition problem: Nutrition etiology: Nutrition signs and symptoms: Nutrition prescription: Dietitian name: Assessment completed: Provider comments on imported dietitian assessment: Physical ExamHead/Eyes: atraumatic, clear cornea, EOMI, normal conjunctiva/sclera, normal eyelids/periorb., normocephalic, PERRLENT: normal dentition, normal ear left, normal ear right, normal nose, normal pharynx, normal sinusNeck: full range of motion, non-tender, normal thyroid, supple/no meningismus, no bruit/NL carotids, no JVD, no masses or swellingCardiovascular: normal capillary refill, normal heart soundsRespiratory: clear to auscultation, no distressAbdomen: non-tender, normal bowel sounds, soft, no distention, no guarding, no hernia, no mass/organomegaly, no reboundExtremities: moves all, normal capillary refill, normal range of motion, no edemaMusculoskeletal: normal inspection, painless range of motionNeuro/WIRE SAWYER: alert, oriented X 3 Diagnosis, Assessment Plan Free Text DxA P NotesFree text DxA P notes:Assessment and plan#Distal aortic stenosis state post stent placementDoing well postop. Surgical ICUWe will continue aspirin and Plavix and statinWill resume other home medication #Uncontrolled hypertension We will continue Cardene drip for now.Was blood pressure better controlled, we will resume her home medications #History of diabetesWe will continue insulin sliding scale for nowSend P0aYypi resume home medication once verified #History of CAD state post stentsWe will continue her home aspirin and PlavixWe will Toprol and losartanWe will continue Lipitor #History of paroxysmal A. fibWe will continue her home Xarelto if is okay with cardiovascular surgeonContinue ToprolHeart rate currently stable.Cardiology is following #LeukocytosisStable Ancef perioperativeAfebrile.No signs of active infectionWe will continue to monitor DVT prophylaxis with sequential compression device. We will start her home Xarelto if is okay with cardiovascular surgeonDisposition: We will continue monitoring surgical ICU. Discharge home at the discretion of cardiovascular surgeonTime spent on patient care and care coordination: 43 minutes Quality: Gen Med Crit Care VTE ProphylaxisVTE prophylaxis initiated: yes Current MedicationsCurrent medication review:I attest that the foregoing medication list in the medical record is true, accurate, and complete to the best of my knowledge. Advanced Care Plan 65 or OlderDiscussed with: patientDiscussion included: code status (full code) at 0121 [facility] #:[id number] OF REPORTPRProgress [id number]:56:00Z.[id number] able for patient [id number]:21:46 [facility] 2021-12-05 22:02:00 [id number] [id number]:02:0 0 [facility] ProgREPORT#:[id number] REPORT STATUS: SignedDATE:12/05/21 TIME: 2201 PATIENT: ALBA KAUR UNIT #: [id number]#: [id number] [address]-IWZA: 47 AGE: 76 SEX: F ATTEND: Ady Ventura [facility] AUTHOR: Trinity Hammer * ALL edits or amendments must be made on the electronic/computer document * GeneralPost-op: day 1Status post:Endovascular stent repair of the infrarenal abdominal aorta SubjectivePatient reports:No: complaints. Nursing reports:No: complaints. Comments:The patient was seen at bedside, doing well Review of SystemsConstitutional:Denies: chills, fatigue, fever, generalized weakness. Respiratory:Denies: TYLER (dyspnea on exertion), SOB. Cardiovascular:Denies: chest pain. Objective GeneralVS/I O:Last Documented: Result Date Time Pulse Ox 92 12/05 2129 Pulse 96 12/050 Resp 25 12/05 2129 O2 Delivery Nasal cannula 12/06 1999 O2 Flow Rate 3 12/06 1999 Temp 36.7 12/05 1954 FiO2 32 12/05 1002 B/P 135/50 12/04 1600 B/P Mean 78 12/04 1600 24 hour I O ending at 0700: 12/05 0700 12/04 1900 Intake Total 1215.00 980.00 Output Total 500 2000 Balance 715.00 -1020.00 Intake, IV 1215.00 980.00 Output, Urine 500 2000 Patient 66.864 kg Weight Weight Standing scale Measurement Method PATIENT WEIGHT: Weight (lb): 147Weight (oz): 6.56Weight (kg): 66.678 Medications:Active Meds + DC'd Last 24 HrsAmlodipine Besylate (NORVASC TAB) 5 MG DAILY PO Famotidine (PEPCID SUSP) 20 MG Q12HR FEED-TUBE Gabapentin (NEURONTIN) 100 MG 2100 PO Heparin Sodium (HEPARIN SODIUM) 10,000 UNITS .STK-MED ONE Z (DC) Aspirin (ASPIRIN EC) 81 MG DAILY PO Clopidogrel Bisulfate (PLAVIX) 75 MG DAILY FEED-TUBE Famotidine (PEPCID) 20 MG Q12HR IV (DC) Mupirocin (BACTROBAN NASAL - ADULT ICU) 1 APPLIC BID NASAL Insulin Human Lispro (HumaLOG) LOW DOSE SLIDING SCALE AC HS SUBQ Dextrose/Water (DEXTROSE 50% IN WATER) 12.5 GM ASDIR PRN IV Dextrose/Water (DEXTROSE 50% IN WATER) 25 GM ASDIR PRN IV Acetaminophen (ACETAMINOPHEN LIQUID) 650 MG Q4H PRN PRN FEED-TUBE Nicardipine HCl (CARDENE I.V.) 25 MG ASDIR IV (CKD) Sodium Chloride (SODIUM CHLORIDE 0.9%) 250 MLAcetylcysteine (NAC) 600 MG BID PO (DC) Benzocaine/Menthol (Cepacol Sore Throat Lozenge) 1 TAB Q2H PRN PRN MM (CKD) Bisacodyl (BISACODYL SUPP) 10 MG ASDIR PRN RECTAL Calcium Gluconate/Sodium Chloride (Calcium Gluconate 1 GM/100ML NS) 100 ML ASDIR PRN IV Cefazolin Sodium (ANCEF) 1 GM Q8H IV (DC) Hydrocodone Bitart/Acetaminophen (NORCO 5/325 TABLET (C-II)) 1 TAB Q4H PRN PRN FEED-TUBE Hydrocodone Bitart/Acetaminophen (NORCO 5/325 TABLET (C-II)) 2 TAB Q4H PRN PRN FEED-TUBE Meperidine HCl (DEMEROL (C-II)) 25 MG Q4H PRN PRN IM Meperidine HCl (DEMEROL (C-II)) 50 MG Q4H PRN PRN IM Nicardipine HCl (CARDENE I.V.) 25 MG ASDIR PRN IV (CKD) Sodium Chloride (SODIUM CHLORIDE 0.9%) 250 MLOndansetron HCl (ZOFRAN) 4 MG Q8H PRN PRN IV Phenol (CHLORASEPTIC) 5 SPRAY Q2H PRN PRN MM Potassium Chloride (Potassium Chloride) 50 ML ASDIR PRN IV Potassium Chloride/Dextrose/Sod Cl (DEXTROSE 5%-1/2NS-KCL 20MEQ) 1,000 ML Q12H IV Cefuroxime Sodium (ZINACEF) 1.5 GM PREOP IV (CKD) Sodium Chloride (SODIUM CHLORIDE 0.9%) 16 MLMagnesium Hydroxide (MILK OF MAGNESIA) 30 ML ASDIR PRN FEED-TUBE Zolpidem Tartrate (AMBIEN (C-IV)) 5 MG BEDTIME PRN PRN FEED-TUBE Physical ExamGeneral appearance: alert, awake, oriented, no acute distressWound/incision: Location: left groin Site condition: dressing clean dry, no drainage, no erythemaNeck: non-tender, no masses or swellingCardiovascular: BP/pulses equal bilat., normal heart sounds, regular rate rhythmRespiratory: aerating wellAbdomen: soft, non-tender, normal bowel soundsExtremities: no edemaNeuro/WIRE SAWYER: alert, oriented X 3 ResultsFindings/Data:Laboratory Tests 12/05 12/05 12/05 1633 1152 0530 Chemistry Sodium (137 - 145 MMOL/L) 138 Potassium (3.5 - 5.1 MMOL/L) 3.3 L Chloride (98 - 107 MMOL/L) 104 Carbon Dioxide (22 - 30 MMOL/L) 30 Anion Gap (14 - 24 MMOL/L) 7 L BUN (7 - 17 MG/DL) 6 L Creatinine (0.52 - 1.04 MG/DL) 0.60 Glomerular Filtr Rate > 60 Glucose (74 - 106 MG/DL) 149 H POC Glucose (60 - 99 MG/DL) 163 H 179 H Calcium (8.4 - 10.2 MG/DL) 8.7 Magnesium (1.6 - 2.3 MG/DL) 1.7 Laboratory Tests 12/05 0530 Hematology WBC (3.8 - 9.8 K/MM3) 12.1 H RBC (3.58 - 4.97 M/MM3) 3.41 L Hgb (11.2 - 14.9 G/DL) 9.8 L Hct (33.2 - 43.5 %) 30.9 L MCV (80.7 - 99.1 fL) 91 MCH (27.0 - 34.1 pg) 28.7 MCHC (32.2 - 35.7 %) 31.7 L RDW (12.1 - 15.2 %) 13.0 Plt Count (129 - 368 K/MM3) 233 MPV (7.4 - 10.4 fl) 10.5 H Neut % (Auto) (43 - 75 %) 76.9 H Lymph % (Auto) (14 - 44 %) 14.3 [place] % (Auto) (4 - 13 %) 8.2 Eos % (Auto) (0 - 6 %) 0.2 Baso % (Auto) (0 - 2 %) 0.2 Neut # (Auto) (2.0 - 7.6 K/mm3) 9.30 H Lymph # (Auto) (1.0 - 3.8 K/mm3) 1.74 [place] # (Auto) (0.1 - 0.8 K/mm3) 1.00 H Eos # (Auto) (0.0 - 0.2 K/mm3) 0.03 Baso # (Auto) (0.0 - 0.2 K/mm3) 0.03 Immature Gran % (0.0 - 2.0 %) 0.2 Nucleated RBC % (0 - 1.0 %) 0.0 Nucleated RBCs # (Man) (0.0 - 0.1 K/mm3) 0.00 Radiology data:Recent Impressions:RADIOLOGY - XR CHEST 1V 12/05 2999 Report Impression - Status: SIGNED Entered: 12/05/2021 8607 IMPRESSION: New bilateral pleural effusions and subsegmental atelectasis in bothlung basesImpression By: Nabeel Ramos MD Diagnosis, Assessment PlanFree Text A P:The patient with stenosis of kofi distal infrarenal abdominal aorta with small aneurysmS/p Endovascular stent repair of the infrarenal aortaCAD HypertensionHyperlipidemiaS/p Right CEADiabetesH/O atrial fibrillation PLAN:D/C arterial lineEncourage use of IS and ambulationTolerating her diet wellHome soon at 2207 at 1718 RPT #:[id number] OF REPORTPRProgress [id number]:02:00Z.[id number] able for patient uvenMFPPAOKSFAUPUF2097-86-68Z42:08:07 [facility] 2021-12-05 15:46:00 [id number]+[id number]/nBnMh OECYKkHvxPe9F3KusnhPhaAL9fJZt/b7198-03-28C36:46:0 0 [facility] ([facility])Cardiology Progress NoteREPORT#:[id number] REPORT STATUS: SignedDATE:12/05/21 TIME: 1546 PATIENT: ALBA KAUR UNIT #: [id number]#: [id number] [address]YC: [address] AGE: 76 SEX: F ATTEND: Ady Ventura [facility] AUTHOR: Skinny Cantu MD * ALL edits or amendments must be made on the electronic/computer document * SubjectiveChief complaint:AAAHPI:76 year old female with h/o PAF, PAFL, PVI/AFL ablation 08/2019, distal aortic stenosis - now s/p aortic stent placement 12/04/21. Doing well.Patient reports:No: chest pain, confused, palpitations, shortness of breath. Objective GeneralVS/I O:24 hour I O ending at 0700: 12/05 0700 12/04 1900 Intake Total 1215.00 980.00 Output Total 500 2000 Balance 715.00 -1020.00 Intake, IV 1215.00 980.00 Output, Urine 500 2000 Patient 66.864 kg Weight Weight Standing scale Measurement Method Vital Signs: Date Time Temp Pulse Resp B/P B/P Pulse O2 O2 Flow FiO2 Mean Ox Delivery Rate 06/15 1002 100 Nasal 3 32 cannula 06/15 0800 98.1 06/15 0800 Nasal 3 cannula 06/15 0715 85 21 06/15 0700 83 12 100 06/15 0645 83 13 99 06/15 0630 79 17 100 06/15 0615 77 16 100 06/15 0600 75 17 100 06/15 0545 75 10 100 06/15 0530 77 19 98 06/15 0515 79 17 98 06/15 0500 78 18 98 06/15 0445 78 18 98 06/15 0430 81 20 100 06/15 0415 79 19 100 06/15 0400 81 16 100 06/15 0345 81 15 100 06/15 0330 94 20 100 06/15 0315 77 16 100 06/15 0300 75 14 100 06/15 0245 75 18 100 06/15 0230 75 16 99 06/15 0215 78 15 100 06/15 0200 74 17 100 06/15 0145 76 18 100 06/15 0130 76 17 100 06/15 0115 78 16 100 06/15 0100 77 18 100 06/15 0045 77 19 100 06/15 0030 75 18 100 06/15 0015 75 20 100 06/15 0000 98.0 Nasal 3 cannula 06/15 0000 76 19 100 06/14 2345 89 16 98 06/14 2330 78 17 99 06/14 2315 79 18 99 06/14 2300 77 17 99 06/14 2252 100 Nasal 3 32 cannula 06/14 2245 77 17 100 06/14 2230 78 16 100 06/14 2215 78 16 100 06/14 2200 75 18 99 06/14 2145 80 19 96 06/14 2130 78 19 97 06/14 2115 79 18 97 06/14 2100 77 20 100 06/14 2030 77 23 100 06/14 2015 83 18 98 06/14 1999 Nasal 3 cannula /14 1999 97.2 Nasal 3 cannula /14 1999 76 22 99 06/14 1945 70 17 99 06/14 1930 74 20 98 06/14 1915 74 18 99 06/14 1900 72 16 98 06/14 1845 71 16 98 06/14 1830 73 17 97 06/14 1815 74 17 97 06/14 1800 74 17 97 06/14 1745 75 16 96 06/14 1730 73 17 96 12/04 1719 Nasal 3 cannula 12/04 1715 79 19 12/04 1715 97 12/04 1700 72 18 12/04 1700 97 12/04 1657 95 Nasal 3 32 cannula 12/04 1645 72 12 12/04 1645 99 12/04 1615 78 19 12/04 1615 92 12/04 1600 98.5 75 19 135/50 78 97 Nasal 3 cannula 12/04 1600 75 19 95 PATIENT WEIGHT: Weight (lb): 147Weight (oz): 6.56Weight (kg): 66.864 Medications:Active Meds + DC'd Last 24 HrsFamotidine (PEPCID SUSP) 20 MG Q12HR FEED-TUBE Gabapentin (NEURONTIN) 100 MG 2100 PO Heparin Sodium (HEPARIN SODIUM) 10,000 UNITS .STK-MED ONE Z (DC) Aspirin (ASPIRIN EC) 81 MG DAILY PO Clopidogrel Bisulfate (PLAVIX) 75 MG DAILY FEED-TUBE Famotidine (PEPCID) 20 MG Q12HR IV (DC) Mupirocin (BACTROBAN NASAL - ADULT ICU) 1 APPLIC BID NASAL Insulin Human Lispro (HumaLOG) LOW DOSE SLIDING SCALE AC HS SUBQ Dextrose/Water (DEXTROSE 50% IN WATER) 12.5 GM ASDIR PRN IV Dextrose/Water (DEXTROSE 50% IN WATER) 25 GM ASDIR PRN IV Iopamidol (ISOVUE-370) 0 .STK-MED ONE .ROUTE (DC) Gentamicin Sulfate/Sodium Chloride (GENTAMICIN SULFATE IN NS) 50 ML .STK-MEDONE IV (DC) Heparin Sodium/Sodium Chloride (HEPARIN 1000 UNITS/NS 500ML) 500 ML .STK-MEDONE IV (DC) Acetaminophen (ACETAMINOPHEN LIQUID) 650 MG Q4H PRN PRN FEED-TUBE Nicardipine HCl (CARDENE I.V.) 25 MG ASDIR IV (CKD) Sodium Chloride (SODIUM CHLORIDE 0.9%) 250 MLAcetylcysteine (NAC) 600 MG BID PO Benzocaine/Menthol (Cepacol Sore Throat Lozenge) 1 TAB Q2H PRN PRN MM (CKD) Bisacodyl (BISACODYL SUPP) 10 MG ASDIR PRN RECTAL Calcium Gluconate/Sodium Chloride (Calcium Gluconate 1 GM/100ML NS) 100 ML ASDIR PRN IV Cefazolin Sodium (ANCEF) 1 GM Q8H IV (DC) Hydrocodone Bitart/Acetaminophen (NORCO 5/325 TABLET (C-II)) 1 TAB Q4H PRN PRN FEED-TUBE Hydrocodone Bitart/Acetaminophen (NORCO 5/325 TABLET (C-II)) 2 TAB Q4H PRN PRN FEED-TUBE Meperidine HCl (DEMEROL (C-II)) 25 MG Q4H PRN PRN IM Meperidine HCl (DEMEROL (C-II)) 50 MG Q4H PRN PRN IM Nicardipine HCl (CARDENE I.V.) 25 MG ASDIR PRN IV (CKD) Sodium Chloride (SODIUM CHLORIDE 0.9%) 250 MLOndansetron HCl (ZOFRAN) 4 MG Q8H PRN PRN IV Phenol (CHLORASEPTIC) 5 SPRAY Q2H PRN PRN MM Potassium Chloride (Potassium Chloride) 50 ML ASDIR PRN IV Potassium Chloride/Dextrose/Sod Cl (DEXTROSE 5%-1/2NS-KCL 20MEQ) 1,000 ML Q12H IV Cefuroxime Sodium (ZINACEF) 1.5 GM PREOP IV (CKD) Sodium Chloride (SODIUM CHLORIDE 0.9%) 16 MLMagnesium Hydroxide (MILK OF MAGNESIA) 30 ML ASDIR PRN FEED-TUBE Zolpidem Tartrate (AMBIEN (C-IV)) 5 MG BEDTIME PRN PRN FEED-TUBE Physical ExamGeneral appearance: alert, awake, orientedHead/Eyes: atraumatic, normocephalicENT: moist mucosal membranesNeck: no JVDCardiovascular: CV assessment: regular rate and rhythmRespiratory: clear to auscultation, no distressAbdomen: soft, non-tenderLower extremity: LE assessment: no edemaMusculoskeletal: full range of motionNeuro/WIRE SAWYER: alert, oriented X 3, CN II-XII intactSkin: dry, intactWound/incision: Site condition: dressing clean dry, no drainagePsychiatry: normal affect, normal judgment/insight, normal mood ResultsFindings/Data:Laboratory Tests 12/05 12/05 12/04 12/04 1152 0530 2110 1619 Chemistry Sodium (137 - 145 MMOL/L) 138 Potassium (3.5 - 5.1 MMOL/L) 3.3 L Chloride (98 - 107 MMOL/L) 104 Carbon Dioxide (22 - 30 MMOL/L) 30 Anion Gap (14 - 24 MMOL/L) 7 L BUN (7 - 17 MG/DL) 6 L Creatinine (0.52 - 1.04 MG/DL) 0.60 Glomerular Filtr Rate > 60 Glucose (74 - 106 MG/DL) 149 H POC Glucose (60 - 99 MG/DL) 179 H 168 H 260 H Calcium (8.4 - 10.2 MG/DL) 8.7 Magnesium (1.6 - 2.3 MG/DL) 1.7 Laboratory Tests 12/05 0530 Hematology WBC (3.8 - 9.8 K/MM3) 12.1 H RBC (3.58 - 4.97 M/MM3) 3.41 L Hgb (11.2 - 14.9 G/DL) 9.8 L Hct (33.2 - 43.5 %) 30.9 L MCV (80.7 - 99.1 fL) 91 MCH (27.0 - 34.1 pg) 28.7 MCHC (32.2 - 35.7 %) 31.7 L RDW (12.1 - 15.2 %) 13.0 Plt Count (129 - 368 K/MM3) 233 MPV (7.4 - 10.4 fl) 10.5 H Neut % (Auto) (43 - 75 %) 76.9 H Lymph % (Auto) (14 - 44 %) 14.3 [place] % (Auto) (4 - 13 %) 8.2 Eos % (Auto) (0 - 6 %) 0.2 Baso % (Auto) (0 - 2 %) 0.2 Neut # (Auto) (2.0 - 7.6 K/mm3) 9.30 H Lymph # (Auto) (1.0 - 3.8 K/mm3) 1.74 [place] # (Auto) (0.1 - 0.8 K/mm3) 1.00 H Eos # (Auto) (0.0 - 0.2 K/mm3) 0.03 Baso # (Auto) (0.0 - 0.2 K/mm3) 0.03 Immature Gran % (0.0 - 2.0 %) 0.2 Nucleated RBC % (0 - 1.0 %) 0.0 Nucleated RBCs # (Man) (0.0 - 0.1 K/mm3) 0.00 Laboratory Tests 12/05 05 Chemistry Magnesium (1.6 - 2.3 MG/DL) 1.7 Radiology data:Recent Impressions:RADIOLOGY - XR CHEST 1V 12/05 0517 Report Impression - Status: SIGNED Entered: 12/05/2021 0830 IMPRESSION: New bilateral pleural effusions and subsegmental atelectasis in bothlung basesImpression By: Nabeel Ramos MD Diagnosis, Assessment Plan Free Text DxA P NotesFree Text DxA P Notes:IMP: Infrarenal abdominal aortic stenosis. s/p aortic stent placement 16 mm x 16 mm x 9.5 cm Artemus endoprosthesis stent Hypertension Hyperlipidemia Diabetes Coronary artery disease PAF - s/p PVI, AFL ablation 08/2019. PAFL Pleural effusions - appear small. PLAN: Ambulate. IS at 1725 RPT #:[id number] OF REPORTPRProgress [id number]:46:00Z.[id number] able for patient lumoITCWWQYQHHFBKI7154-49-37F44:25:31 [facility] 2021-12-04 23:51:00 [id number]/iaq ATV6/J5re8uXgX5uF7qKUPyVc0PgfLC6845-37-76M89:51:0 0 [facility] ([facility])Hospitalist History PhysicalREPORT#:[id number] REPORT STATUS: SignedDATE:12/04/21 TIME: 2351 PATIENT: ALBA KAUR UNIT #: [id number]#: [id number] [address]: [address]17-GLLS: 47 AGE: 76 SEX: F ATTEND: Ady Ventura [facility] AUTHOR: Katrina Ambrocio MD * ALL edits or amendments must be made on the electronic/computer document * History of Present Illness HPIHPI:This is a 76 year old female with h/o hypertension, hyperlipidemia, diabetes, CAD with 4 stents, PAF, PAFL, PVI/AFL ablation 08/2019, distal aortic stenosis, which underwent aortic stent placement today. Patient was seen in surgical ICU after surgery today. Patient currently denies any chest pain, shortness of breath, dizziness, lightheaded, fever, chills, abdominal pain, diarrhea or constipation. Vital signs stable. Blood pressure mildly elevated. Labs significant for elevated blood glucose. Patient currently on Cardene drip. History Past Medical Surgical HxAdditional medical history:macular degenerationAdditional surgical history:Hysterectomy (2003) Family HistoryFamily history:Denies: Diabetes, Heart disease. Social HistoryAlcohol use: Denies EtOH useDrug use: Denies recreational drugsSmoking status: Smoking status for patients 13 years old or older: Never Smoker Medication/Allergy-Vaccine HxAllergies:Coded Allergies:No Known Allergies (12/04/21) Review of SystemsConstitutional:Denies: chills, fatigue, fever, generalized weakness, lethargy, malaise, recent wt loss, other. Skin:Denies: abrasion, bruising, contusion, diaphoresis, ecchymosis, itching, laceration, rash, swelling, other. Allergy/Immun:Denies: allergic reaction, anaphylaxis, hives, itching, rhinorrhea, sneezing, other. Eyes:Denies: redness, discharge, visual loss/blurred, itching, diplopia, eye pain, photophobia, swelling, other. ENT:Denies: ear drainage, ear ringing, earache, hearing loss, mouth pain, nasal congestion, nose bleeding, sinus problem, sore throat, throat pain, throat swelling, tongue pain, tongue swelling, toothache, voice change, other. Respiratory:Reports: TYLER (dyspnea on exertion). Denies: hemoptysis, non productive cough, parox nocturnal dyspnea, pleurisy, pleuritic pain, pneumonia, productive cough (sputum), SOB, wheezing, other. Cardiovascular:Reports: TYLER (dyspnea on exertion). Denies: chest pain, edema, orthopnea, palpitations, parox nocturnal dyspnea, other. :Denies: dysuria, flank pain, frequency, hematuria, nocturia, pelvic pain, , urgency, urinary retention, vaginal bleeding, vaginal discharge, other. Musculoskeletal:Denies: arthritis, extremity pain, extremity swelling, joint pain, joint swelling, lumbar pain, myalgias, neck pain, thoracic pain, other. Heme:Denies: adenopathy, bleeding, bruising, petechiae, other. Endocrine:Denies: cold intolerance, heat intolerance, polydipsia, polyphagia, polyuria, weight gain, weight loss, other. Neuro:Denies: bladder dysfunction, bowel dysfunction, change in LOC, confusion, dizziness, focal weakness, gait problem, headache, lightheaded, numbness, seizure, slurred speech, spinning sensation, syncope, unable to speak, vision change, weakness, other. Psych:Denies: agitation, anxiety, auditory hallucination, change in mental status, confusion, delusional, depression, homicidal ideation, hostile, insomnia, stress, suicidal ideation, visual hallucination, other. Physical ExamVS/I O:Vital Signs Date Temp Pulse Resp B/P B/P Mean Pulse Ox FiO2 12/04 36.2-36.9 70-87 12-24 124-167/47-78 72-78 87-100 32 Last Documented: Result Date Time Pulse Ox 99 12/04 2330 Pulse 78 12/04 2330 Resp 17 12/04 2330 FiO2 32 12/04 2252 O2 Delivery Nasal cannula 12/04 2252 O2 Flow Rate 3 12/04 2252 Temp 36.2 12/04 2000 B/P 135/50 12/04 1600 B/P Mean 78 12/04 1600 24 hour I O ending at 0700: 12/04 0700 12/03 1900 Intake Total Output Total Balance Patient 66.364 kg Weight Weight Stated/Reported Measurement Method Patient Weight and BMI Weight (kg): 66.864 BMI: 21.8 General appearance: alert, awakeHead/Eyes: atraumatic, clear cornea, EOMI, normal conjunctiva/sclera, normal eyelids/periorb., normocephalic, PERRLENT: normal dentition, normal ear left, normal ear right, normal nose, normal pharynx, normal sinusNeck: full range of motion, non-tender, normal thyroid, supple/no meningismus, no bruit/NL carotids, no JVD, no masses or swellingCardiovascular: normal capillary refill, normal heart soundsRespiratory: clear to auscultation, no distressAbdomen: non-tender, normal bowel sounds, soft, no distention, no guarding, no hernia, no mass/organomegaly, no reboundExtremities: moves all, normal capillary refill, normal range of motion, no edemaMusculoskeletal: normal inspection, painless range of motionNeuro/WIRE SAWYER: alert, oriented X 3 ResultsFindings/Data:Laboratory Tests: 12/04 12/04 12/04 1619 1307 0728 Chemistry Sodium (137 - 145 MMOL/L) 138 Potassium (3.5 - 5.1 MMOL/L) 3.5 Chloride (98 - 107 MMOL/L) 106 Carbon Dioxide (22 - 30 MMOL/L) 27 BUN (7 - 17 MG/DL) 9 Creatinine (0.52 - 1.04 MG/DL) 0.60 Glomerular Filtr Rate > 60 Glucose (74 - 106 MG/DL) 222 H POC Glucose (60 - 99 MG/DL) 260 H 159 H Calcium (8.4 - 10.2 MG/DL) 8.0 L Magnesium (1.6 - 2.3 MG/DL) 1.8 Hematology WBC (3.8 - 9.8 K/MM3) 8.5 RBC (3.58 - 4.97 M/MM3) 3.15 L Hgb (11.2 - 14.9 G/DL) 9.0 L Hct (33.2 - 43.5 %) 28.8 L MCV (80.7 - 99.1 fL) 91 MCH (27.0 - 34.1 pg) 28.6 MCHC (32.2 - 35.7 %) 31.3 L RDW (12.1 - 15.2 %) 13.1 Plt Count (129 - 368 K/MM3) 194 MPV (7.4 - 10.4 fl) 10.7 H Neut % (Auto) (43 - 75 %) 79.3 H Lymph % (Auto) (14 - 44 %) 11.4 L [place] % (Auto) (4 - 13 %) 8.3 Eos % (Auto) (0 - 6 %) 0.4 Baso % (Auto) (0 - 2 %) 0.2 Neut # (Auto) (2.0 - 7.6 K/mm3) 6.73 Lymph # (Auto) (1.0 - 3.8 K/mm3) 0.97 L [place] # (Auto) (0.1 - 0.8 K/mm3) 0.70 Eos # (Auto) (0.0 - 0.2 K/mm3) 0.03 Baso # (Auto) (0.0 - 0.2 K/mm3) 0.02 Immature Gran % (0.0 - 2.0 %) 0.4 Nucleated RBC % (0 - 1.0 %) 0.2 Nucleated RBCs # (Man) (0.0 - 0.1 K/mm3) 0.02 Laboratory Tests 12/04/21 1307:[Embedded Image Not Available] Diagnosis, Assessment PlanFree Text A P:Assessment and plan#Distal aortic stenosis state post stent placementDoing well postop. Surgical ICUWe will continue aspirin and Plavix and statinWill resume other home medication #Uncontrolled hypertension We will continue Cardene drip for now.Was blood pressure better controlled, we will resume her home medications #History of diabetesWe will continue insulin sliding scale for nowSend V1zXsvv resume home medication once verified #History of CAD state post stentsWe will continue her home aspirin and PlavixWe will Toprol and losartanWe will continue Lipitor #History of paroxysmal A. fibWe will continue her home Xarelto if is okay with cardiovascular surgeonContinue ToprolHeart rate currently stable.Cardiology is following DVT prophylaxis with sequential compression device. We will start her home Xarelto if is okay with cardiovascular surgeonDisposition: We will continue monitoring surgical ICU. Discharge home at the discretion of cardiovascular surgeonTime spent on patient care and care coordination: 43 minutes Quality: Gen Med Crit Care VTE ProphylaxisVTE prophylaxis initiated: yes Current MedicationsCurrent medication review:I attest that the foregoing medication list in the medical record is true, accurate, and complete to the best of my knowledge. Advanced Care Plan 65 or OlderDiscussed with: patientDiscussion included: code status (full code) at 0004 [facility] #:[id number] OF REPORTHPHistory and physical zfckseqrzno6698-41-20R85:51:00Z.[id number] AVAvailable for patient ahizCIWBWNZFZKSZDY9318-03-20I11:04:44 [facility] 2021-12-04 14:48:00 [id number] MJbNAAMmrf7RqVkzzSLiPLmNGauLLtK5200-47-31N63:48:0 0 [facility] ([facility])Cardiology Progress NoteREPORT#:[id number] REPORT STATUS: SignedDATE:12/04/21 TIME: 1448 PATIENT: ALBA KAUR UNIT #: [id number]#: [id number] [address]RRZK: 47 AGE: 76 SEX: F ATTEND: Ady Ventura AUTHOR: Skinny Cantu MD * ALL edits or amendments must be made on the electronic/computer document * SubjectiveChief complaint:AAAHPI:76 year old female with h/o PAF, PAFL, PVI/AFL ablation 08/2019, distal aortic stenosis - now s/p aortic stent placement 12/04/21. Doing well.Patient reports:No: chest pain, palpitations, shortness of breath. Objective GeneralVS/I O:24 hour I O ending at 0700: 12/04 0700 12/03 1900 Intake Total Output Total Balance Patient 66.364 kg Weight Weight Stated/Reported Measurement Method Vital Signs: Date Time Temp Pulse Resp B/P B/P Pulse O2 O2 Flow FiO2 Mean Ox Delivery Rate 12/04 06 97.2 70 18 167/78 98 Room air PATIENT WEIGHT: Weight (lb): 147Weight (oz): 6.56Weight (kg): 66.864 Medications:Active Meds + DC'd Last 24 HrsGabapentin (NEURONTIN) 100 MG 2100 PO Aspirin (ASPIRIN EC) 81 MG DAILY PO Clopidogrel Bisulfate (PLAVIX) 75 MG DAILY PO Famotidine (PEPCID) 20 MG Q12HR IV Mupirocin (BACTROBAN NASAL - ADULT ICU) 1 APPLIC BID NASAL Acetaminophen (ACETAMINOPHEN LIQUID) 650 MG Q4H PRN PRN FEED-TUBE Nicardipine HCl (CARDENE I.V.) 25 MG ASDIR IV (CKD) Sodium Chloride (SODIUM CHLORIDE 0.9%) 250 MLAcetylcysteine (NAC) 600 MG BID PO Benzocaine/Menthol (Cepacol Sore Throat Lozenge) 1 TAB Q2H PRN PRN MM (CKD) Bisacodyl (BISACODYL SUPP) 10 MG ASDIR PRN RECTAL Calcium Gluconate/Sodium Chloride (Calcium Gluconate 1 GM/100ML NS) 100 ML ASDIR PRN IV Cefazolin Sodium (ANCEF) 1 GM Q8H IV Hydrocodone Bitart/Acetaminophen (NORCO 5/325 TABLET (C-II)) 1 TAB Q4H PRN PRN PO Hydrocodone Bitart/Acetaminophen (NORCO 5/325 TABLET (C-II)) 2 TAB Q4H PRN PRN PO Meperidine HCl (DEMEROL (C-II)) 25 MG Q4H PRN PRN IM Meperidine HCl (DEMEROL (C-II)) 50 MG Q4H PRN PRN IM Nicardipine HCl (CARDENE I.V.) 25 MG ASDIR PRN IV (CKD) Sodium Chloride (SODIUM CHLORIDE 0.9%) 250 MLOndansetron HCl (ZOFRAN) 4 MG Q8H PRN PRN IV Phenol (CHLORASEPTIC) 5 SPRAY Q2H PRN PRN MM Potassium Chloride (Potassium Chloride) 50 ML ASDIR PRN IV Potassium Chloride/Dextrose/Sod Cl (DEXTROSE 5%-1/2NS-KCL 20MEQ) 1,000 ML Q12H IV Naloxone HCl (NARCAN) 0 .STK-MED ONE .ROUTE (DC) Glycopyrrolate (ROBINUL IJ) 0 .STK-MED ONE .ROUTE (DC) Glycopyrrolate (ROBINUL IJ) 0 .STK-MED ONE .ROUTE (DC) Glycopyrrolate (ROBINUL IJ) 0 .STK-MED ONE .ROUTE (DC) Neostigmine [place] (NEOSTIGMINE METHYLSULFATE) 0 .STK-MED ONE .ROUTE (DC) Protamine Sulfate (PROTAMINE SULFATE) 0 .STK-MED ONE .ROUTE (DC) Lidocaine HCl (XYLOCAINE 1%) 5 ML .STK-MED ONE IV (DC) Cefuroxime Sodium (ZINACEF) 0 .STK-MED ONE .ROUTE (DC) Lidocaine HCl (XYLOCAINE 1%) 5 ML .STK-MED ONE IV (DC) Lidocaine HCl (XYLOCAINE 2%) 0 .STK-MED ONE .ROUTE (DC) Ephedrine Sulfate (ePHEDrine sulfate) 0 .STK-MED ONE .ROUTE (DC) Fentanyl Citrate (fentaNYL CITRATE (C-II)) 0 .STK-MED ONE .ROUTE (DC) Midazolam HCl (VERSED (C-IV)) 0 .STK-MED ONE .ROUTE (DC) Rocuronium [place] (ZEMURON) 0 .STK-MED ONE .ROUTE (DC) Heparin Sodium (Porcine) (Heparin Sodium) 0 .STK-MED ONE .ROUTE (DC) Lidocaine HCl (XYLOCAINE 1%) 10 ML .STK-MED ONE IV (DC) Propofol (DIPRIVAN) 0 .STK-MED ONE .ROUTE (DC) Cefuroxime Sodium (ZINACEF) 1.5 GM PREOP IV (CKD) Sodium Chloride (SODIUM CHLORIDE 0.9%) 16 MLMagnesium Hydroxide (MILK OF MAGNESIA) 30 ML ASDIR PRN PO Acetaminophen (TYLENOL) 650 MG Q4H PRN PRN PO (DC) Zolpidem Tartrate (AMBIEN (C-IV)) 5 MG BEDTIME PRN PRN PO Physical ExamGeneral appearance: alert, awake, orientedHead/Eyes: atraumatic, normocephalicENT: moist mucosal membranesNeck: no JVDCardiovascular: CV assessment: regular rate and rhythmRespiratory: clear to auscultation, no distressAbdomen: soft, non-tenderLower extremity: LE assessment: no edemaMusculoskeletal: full range of motionNeuro/WIRE SAWYER: alert, oriented X 3, CN II-XII intactSkin: dry, intactPsychiatry: normal affect, normal judgment/insight, normal mood ResultsFindings/Data:Laboratory Tests 12/04 12/04 1307 0728 Chemistry Sodium (137 - 145 MMOL/L) 138 Potassium (3.5 - 5.1 MMOL/L) 3.5 Chloride (98 - 107 MMOL/L) 106 Carbon Dioxide (22 - 30 MMOL/L) 27 BUN (7 - 17 MG/DL) 9 Creatinine (0.52 - 1.04 MG/DL) 0.60 Glomerular Filtr Rate > 60 Glucose (74 - 106 MG/DL) 222 H POC Glucose (60 - 99 MG/DL) 159 H Calcium (8.4 - 10.2 MG/DL) 8.0 L Magnesium (1.6 - 2.3 MG/DL) 1.8 Laboratory Tests 12/04 1307 Hematology WBC (3.8 - 9.8 K/MM3) 8.5 RBC (3.58 - 4.97 M/MM3) 3.15 L Hgb (11.2 - 14.9 G/DL) 9.0 L Hct (33.2 - 43.5 %) 28.8 L MCV (80.7 - 99.1 fL) 91 MCH (27.0 - 34.1 pg) 28.6 MCHC (32.2 - 35.7 %) 31.3 L RDW (12.1 - 15.2 %) 13.1 Plt Count (129 - 368 K/MM3) 194 MPV (7.4 - 10.4 fl) 10.7 H Neut % (Auto) (43 - 75 %) 79.3 H Lymph % (Auto) (14 - 44 %) 11.4 L [place] % (Auto) (4 - 13 %) 8.3 Eos % (Auto) (0 - 6 %) 0.4 Baso % (Auto) (0 - 2 %) 0.2 Neut # (Auto) (2.0 - 7.6 K/mm3) 6.73 Lymph # (Auto) (1.0 - 3.8 K/mm3) 0.97 L [place] # (Auto) (0.1 - 0.8 K/mm3) 0.70 Eos # (Auto) (0.0 - 0.2 K/mm3) 0.03 Baso # (Auto) (0.0 - 0.2 K/mm3) 0.02 Immature Gran % (0.0 - 2.0 %) 0.4 Nucleated RBC % (0 - 1.0 %) 0.2 Nucleated RBCs # (Man) (0.0 - 0.1 K/mm3) 0.02 Laboratory Tests 12/04 1307 Chemistry Magnesium (1.6 - 2.3 MG/DL) 1.8 Diagnosis, Assessment Plan Free Text DxA P NotesFree Text DxA P Notes:IMP: Infrarenal abdominal aortic stenosis. s/p aortic stent placement 16 mm x 16 mm x 9.5 cm Artemus endoprosthesis stent Hypertension Hyperlipidemia Diabetes Coronary artery disease PAF - s/p PVI, AFL ablation 08/2019. PAFL PLAN: Home medications. Ambulate. at 1725 RPT #:[id number] OF REPORTPRProgress qchg4414-85-10S97:48:00Z.FSIY35361132-8229ANRrgyy able for patient kxjkEKGWCIQPNAQQHQ5554-60-11B21:25:30 [facility] 2021-12-04 12:57:00 [id number] zZDKEsNpalEJhungGBsqhKNzYJ9z5 zIIrJytDsX0meAxRe2jVzRkMB9NVAia8322-44-07R56:57:0 [id number] [place] [address] PATIENT NAME: TIFFANY KAURKIP Reyes ADMIT DATE: 12/04/21ACCOUNT NO: [id number] ROOM NO: [facility] AGE: 76 REPORT TYPE: ELECTROCARDIOGRAM SEX: F ADMITTING PHYSICIAN:Ady Ventura MD ATTENDING PHYSICIAN:Ady Ventura MD Order:[id number] Reason : post op surgery Test Date/Time Stamp:FriDec 04 2021 12:57:07Blood Pressure : / mmHGVent. Rate : 069 BPM Atrial Rate : 069 BPM P-R Int : 114 ms QRS Dur : 096 ms QT Int : 454 ms P-R-T Axes : 093 030 063 degrees QTc Int : 486 ms Normal sinus rhythmNormal ECGWhen compared with ECG of 03-DEC-2021 11:54,No significant change was foundConfirmed by LAURIE CHRISTIAN ([id number]) on 12/04/2021 3:50:32 PM Referred By: Ady Ventura Confirmed by:LAURIE CHRISTIAN at 1550 PATIENT NAME: TANIKAALBA GO .[id number] AVAvailable for patient tsxlHUTOWTEPMIEPYS3779-03-09V77:51:01 [facility] 2021-12-04 10:59:00 [id number] eJTLWTWeC7aJ/xA/bCDT2tnEugZhG b8Xy+mCL2b4O7mJEh9CP213E4bnO4PT8380-49-55P24:59:0 [id number] [place] [address] PATIENT NAME: ALBA KAUR ADMIT DATE: 12/04/21ACCOUNT NO: [id number] ROOM NO: Z.SI03 AGE: 76 REPORT TYPE: OPERATIVE REPORT SEX: F ADMITTING PHYSICIAN:Ady Ventura MD ATTENDING PHYSICIAN:Ady Ventura MD OPERATION DATE: 12/04/2021 PREOPERATIVE DIAGNOSES: Infrarenal abdominal aortic stenosis, hypertension,hyperlipidemia, diabetes, coronary artery disease. POSTOPERATIVE DIAGNOSES: Infrarenal abdominal aortic stenosis, hypertension,hyperlipidemia, diabetes, coronary artery disease. PROCEDURE: Exposure of the left femoral artery to deploy an aortic stent,aortic stent placement 16 mm x 16 mm x 9.5 cm Artemus endoprosthesis stent,aortogram, right subclavian CVP ultrasound-guided access with SonoSite of theright subclavian vein. SURGEON: Ady Ventura MD CHROME PLATER HELPER: Trinity Hammer PA-C ANESTHESIA: General. COMPLICATIONS: None. DISPOSITION: The patient to surgical ICU in stable condition. DESCRIPTION OF PROCEDURE: On 12/04/2021, the patient was brought to theoperating room, placed on the operating table in supine position, prepped anddraped in usual fashion. Following introduction of satisfactory generalanesthesia, placement of appropriate monitoring lines, Benson catheter, hips,shoulders, and elbows were padded in usual fashion. Right subclavian CVP wasplaced using ultrasound-guided access with SonoSite to access the rightsubclavian vein. The patient was then prepped and draped in usual fashion. Left groin incision was made. Femoral artery was isolated. The patient washeparinized. A 4-Peruvian catheter was placed over a guidewire. We then placed a0.035 guidewire into the aorta, then placed a pigtail catheter. Aortogram wasperformed. We then placed Amplatz stiff wire through the pigtail catheter. G29-Ygvwnk sheath placed over the stiff wire. We then deployed a 16 mm x 16 mm x9.5 cm Artemus Excluder abdominal aortic aneurysm and AAA endoprosthesis. This wasdeployed just right at the takeoff of the bilateral renal arteries and broughtdown just above the takeoff of the right and left common iliac artery. Thestent then was deployed, it was deployed perfectly. We then used the balloon,Artemus moulding and occlusion balloon and following this, we then completed acompletion aortogram after passing the pigtail catheter, which showed we had noendoleak and we had nice resolution of the areas of stenosis with very PATIENT NAME: ALBA KAUR significant improvement. The guidewires then were removed, the sheath wasremoved, the femoral artery was repaired with a 5-0 Prolene suture. Protaminegiven, hemostasis achieved to reverse the heparin. We have good arterial pulseby palpation and Doppler. Wounds were irrigated with antibiotic salinesolution, closed in layers in usual fashion. Dressing applied. The patient toICU in stable condition. Dictated By: Ady Ventura MD WT: OP:Z.RUSTY/DARY/NTSDD: 12/04/2021 10:59:42DT: 12/04/2021 13:31:55Conf#: [id number]/DID#: [id number] cc: Laurie Christian MD Authenticated by Ady Ventura MD On 12/13/2021 05:36:54 PM at 0536 PATIENT NAME: ALBA KAUR jfukpc3799-62-66R89:31:00Z.[id number] lable for patient lanbQEPKMGGUBLHQSH2604-79-49K14:37:21 [facility] 2021-12-04 10:57:00 [id number] 1gVbTIRBs7O6cLmQncm5FxRQqZqG0 qtDEr8fikrIvr3ZH7j8Y0fAkbiIp7sC8993-16-24I69:57:0 0 [facility] ([facility])Brief Op NoteREPORT#:[id number] REPORT STATUS: SignedDATE:12/04/21 TIME: 1057 PATIENT: ALBA KAUR UNIT #: [id number]#: [id number] ROOM/BED:: 47 AGE: 76 SEX: F ATTEND: Ady Ventura AUTHOR: Ady Ventura MD * ALL edits or amendments must be made on the electronic/computer document * Op/Inv Proc Note - BriefPre-procedure diagnosis:Stenosis of the infrarenal abdominal aortaAbdominal aortic aneurysmPost-procedure diagnosis: same as pre procedure dxProcedures performed:Endovascular stent placement to the infrarenal abdominal aorta with Artemus Sushant stent excluder.Exposre of left femoral artery to deploy the stent.Insertion of right subclavian central line using sonosite US guidancePrimary Surgeon:Ady Calitant(s): SAAD Collins-CAnesthesiologist:Dr. SantosAnesthesia: general anesthesiaFindings:See detailed op reportComplications: noneEstimated blood loss in ml's: 20ccSpecimens removed/altered: noneDrain(s): Benson Catheter PlacedTube(s): NG tubeApproach: open (with endovascular)Wound class: cleanDisposition: ICU, stable at 1100 RPT #:[id number] OF REPORTOPOperative ivvtmr0218-98-36W88:57:00Z.[id number] ilable for patient iehsSWFJOTZJWBNTCH9275-39-09S62:01:02 [facility] 2021-12-03 11:54:00 [id number] 1/cSYQAygDoKkiwW1EPbWgBEtZ/AY E8dUVknVgk+Jhp5/5vw5h3kd1qkQfj25275-04-99E13:54:0 [id number] [place] [id number] PATIENT NAME: ALBA KAUR ADMIT DATE: ACCOUNT NO: [id number] ROOM NO: AGE: 76 REPORT TYPE: ELECTROCARDIOGRAM SEX: F ADMITTING PHYSICIAN:Ady Ventura MD ATTENDING PHYSICIAN:Ady Ventura MD Order:[id number] Reason : PREOP Test Date/Time Stamp:FriDec 03 2021 11:54:12Blood Pressure : / mmHGVent. Rate : 065 BPM Atrial Rate : 065 BPM P-R Int : 110 ms QRS Dur : 088 ms QT Int : 444 ms P-R-T Axes : 088 036 060 degrees QTc Int : 461 ms Sinus rhythm with short PROtherwise normal ECGWhen compared with ECG of 29-OCT-2021 05:21,Vent. rate has decreased BY 34 BPMQuestionable change in QRS axisNonspecific T wave abnormality no longer evident in Lateral leadsConfirmed by LAURIE CHRISTIAN ([id number]) on 12/04/2021 8:02:22 AM Referred By: Ady Ventura Confirmed by:LAURIE CHRISTIAN at 0802 PATIENT NAME: ALBA KAUR .[id number] AVAvailable for patient hqpeAZRISJKIIOUCTZ3638-37-56R31:02:47 [facility] 2021-10-29 10:15:00 [id number] Qxezag4kRDpli6LuKFQKPgxnGUuHE y29MIxadqnAA1Yni7Ag6prphyr2DpNA9256-22-80F62:15:0 0 [facility]Card[facility] Progress NoteREPORT#:[id number] REPORT STATUS: SignedDATE:10/29/21 TIME: 1015 PATIENT: ALBA KAUR UNIT #: [id number]#: [id number] [address] AGE: 76 SEX: F ATTEND: Ady Ventura [facility] AUTHOR: Skinny Cantu MD * ALL edits or amendments must be made on the electronic/computer document * SubjectiveChief complaint:S/P R CEAPatient reports:No: chest pain, palpitations, shortness of breath. Objective GeneralVS/I O:24 hour I O ending at 0700: 10/29 0700 10/28 1900 Intake Total 790.00 Output Total Balance 790.00 Intake, IV 640.00 Intake, Oral 150 Number Voids 4 2 Vital Signs: Date Time Temp Pulse Resp B/P B/P Pulse O2 O2 Flow FiO2 Mean Ox Delivery Rate 10/29 0800 6 10/29 0800 99.1 6 10/29 0716 99 14 146/65 94 98 05 0646 98 21 137/62 89 96 10/29 0616 101 19 130/58 83 94 / 0546 94 21 152/68 98 96 05/ 0516 95 20 146/65 94 96 10/29 0508 96 Nasal 6 44 cannula 10/29 0446 94 20 149/67 96 99 05 0416 95 21 150/68 98 99 05/ 0400 98.6 / 0400 98.6 10/29 0346 93 22 150/67 96 99 / 0316 94 22 144/65 93 99 05/ 0246 92 23 142/61 88 97 / 0216 95 22 145/64 92 98 05/ 0146 96 23 143/63 90 97 / 0116 99 22 155/67 96 88 05/ 0109 98 Nasal 1 24 cannula 10/29 0046 109 24 156/68 98 91 05/ 0016 91 22 151/56 96 95 05/ 0012 95 22 160/69 99 95 05/ 0000 99.0 05/ 0000 99.0 10/28 2346 93 24 158/68 98 95 05/08 2316 97 15 158/58 99 89 05/08 2302 94 12 154/70 100 91 05/08 2246 96 17 160/71 102 93 05/08 2216 94 22 144/66 95 95 05/08 2146 92 12 154/66 95 95 05/08 2116 91 19 142/65 94 94 05/08 2046 88 20 137/63 90 94 05/08 2015 88 20 143/65 93 93 05/08 1999 98.9 05/08 1999 98.9 05/08 1999 Nasal 4 cannula 05/08 1946 91 32 140/63 90 90 05/08 1937 95 Nasal 2 28 cannula 05/08 1916 89 16 139/64 92 87 05/08 1859 90 20 88 05/08 1846 90 32 138/62 89 90 05/08 1816 91 18 121/56 81 92 05/08 1716 87 17 151/66 95 97 05/08 1616 85 15 140/61 88 96 05/08 1600 98.3 05/08 1516 87 19 126/58 84 93 05/08 1416 89 23 125/59 85 97 05/08 1316 83 19 119/56 81 91 05/08 1216 80 19 123/58 83 96 05/08 1200 98.3 05/08 1116 84 31 131/63 90 97 05/08 1016 84 18 111/53 77 96 PATIENT WEIGHT: Weight (lb): 150Weight (oz): 5.05Weight (kg): 68.039 Medications:Active Meds + DC'd Last 24 HrsFentanyl Citrate (SUBLIMAZE (C-II)) 0 .STK-MED ONE .ROUTE (DC) Hydrocortisone Sodium Succinate (Solu-CORTEF) 0 .STK-MED ONE .ROUTE (DC) Cefazolin Sodium (ANCEF) 0 .STK-MED ONE .ROUTE (DC) Nicardipine HCl (CARDENE 25MG/250ML PREMIX) 250 ML .STK-MED ONE IV (DC) Phenylephrine HCl (LOLI-SYNEPHRINE 1PC IJ.) 0 .STK-MED ONE .ROUTE (DC) Amlodipine Besylate (NORVASC TAB) 5 MG DAILY PO Gabapentin (NEURONTIN) 100 MG 2100 PO Famotidine (PEPCID) 20 MG BID PO Nitroglycerin (NITRO-BID UD) 1 INCH Q6HR TRANSDERM Atorvastatin Calcium (LIPITOR) 5 MG BEDTIME PO Insulin Human Lispro (HumaLOG) MEDIUM DOSE SLIDING SCALE AC HS SUBQ Metformin HCl (GLUCOPHAGE) 500 MG C BK DIN PO Mupirocin (BACTROBAN NASAL - ADULT ICU) 1 APPLIC BID NASAL Dextrose/Water (DEXTROSE 50% IN WATER) 12.5 GM ASDIR PRN IV Dextrose/Water (DEXTROSE 50% IN WATER) 25 GM ASDIR PRN IV Levothyroxine Sodium (Synthroid) 88 MCG DAILY@0600 PO Amiodarone HCl (CORDARONE) 200 MG DAILY PO Aspirin (CHILDREN'S ASPIRIN) 81 MG DAILY PO Carvedilol (COREG) 6.25 MG BID MEALS PO Clopidogrel Bisulfate (PLAVIX) 75 MG DAILY PO Potassium Chloride/Dextrose/Sod Cl (DEXTROSE 5%-1/2NS-KCL 20MEQ) 1,000 ML Q12H IV (DC) Benzocaine/Menthol (Cepacol Sore Throat Lozenge) 1 TAB Q2H PRN PRN MM (CKD) Bisacodyl (BISACODYL SUPP) 10 MG ASDIR PRN RECTAL Calcium Gluconate/Sodium Chloride (Calcium Gluconate 1 GM/100ML NS) 100 ML ASDIR PRN IV Hydralazine HCl (APRESOLINE) 10 MG Q8H PRN PRN IV Hydrocodone Bitart/Acetaminophen (NORCO 5/325 TABLET (C-II)) 1 TAB Q4H PRN PRN PO Hydrocodone Bitart/Acetaminophen (NORCO 5/325 TABLET (C-II)) 2 TAB Q4H PRN PRN PO Nicardipine HCl (CARDENE I.V.) 25 MG ASDIR PRN IV (CKD) Sodium Chloride (SODIUM CHLORIDE 0.9%) 250 MLOndansetron HCl (ZOFRAN) 4 MG Q8H PRN PRN IV Phenol (CHLORASEPTIC) 5 SPRAY Q2H PRN PRN MM Potassium Chloride (KLOR-CON M20) 20 MEQ ASDIR PRN PO (DC) Potassium Chloride (Potassium Chloride) 50 ML ASDIR PRN IV Status post:R CEA Physical ExamGeneral appearance: alert, awake, orientedHead/Eyes: atraumatic, normocephalic, PERRLAENT: moist mucosal membranesNeck: full range of motion, no JVD, Right neck wound - bandage clean and dry.Cardiovascular: CV assessment: regular rate and rhythm, BP pulses = bilaterally Murmur assessment:I/ SEMRespiratory: decreased breath sounds, on oxygen, no distressAbdomen: soft, non-tender, no mass/organomegalyLower extremity: LE assessment: abnormal peripheral pulse, no edemaMusculoskeletal: full range of motionNeuro/WIRE SAWYER: alert, oriented X 3, CN II-XII intact, no motor deficitsWound/incision: Location:R CEA Site condition: dressing clean dry, no drainagePsychiatry: normal affect, normal judgment/insight, normal mood, no hallucinations ResultsFindings/Data:Laboratory Tests 10/29 10/29 10/28 10/28 10/28 0802 0627 1955 1549 1207 Chemistry POC Glucose (60 - 99 MG/DL) 217 H 173 H 139 H 182 H 179 H Laboratory Tests 10/29 0445 Hematology WBC (3.8 - 9.8 K/MM3) 12.6 H RBC (3.58 - 4.97 M/MM3) 3.54 L Hgb (11.2 - 14.9 G/DL) 10.5 L Hct (33.2 - 43.5 %) 32.6 L MCV (80.7 - 99.1 fL) 92 MCH (27.0 - 34.1 pg) 29.7 MCHC (32.2 - 35.7 %) 32.2 RDW (12.1 - 15.2 %) 13.1 Plt Count (129 - 368 K/MM3) 189 MPV (7.4 - 10.4 fl) 10.5 H Neut % (Auto) (43 - 75 %) 77.0 H Lymph % (Auto) (14 - 44 %) 10.9 L [place] % (Auto) (4 - 13 %) 11.2 Eos % (Auto) (0 - 6 %) 0.1 Baso % (Auto) (0 - 2 %) 0.2 Neut # (Auto) (2.0 - 7.6 K/mm3) 9.71 H Lymph # (Auto) (1.0 - 3.8 K/mm3) 1.37 [place] # (Auto) (0.1 - 0.8 K/mm3) 1.41 H Eos # (Auto) (0.0 - 0.2 K/mm3) 0.01 Baso # (Auto) (0.0 - 0.2 K/mm3) 0.03 Immature Gran % (0.0 - 2.0 %) 0.6 Nucleated RBC % (0 - 1.0 %) 0.0 Nucleated RBCs # (Man) (0.0 - 0.1 K/mm3) 0.00 Diagnosis, Assessment Plan Free Text DxA P NotesFree Text DxA P Notes:IMPRESSION: COD, S/P R CEA CAD ABD PAD PAD HTN - improved. HLP DM Doing well PLAN: Continue medical rx. Ambulate. at 1121 RPT #:[id number] OF REPORTPRProgress wdel6832-08-07B64:15:00Z.[id number] able for patient pvgwIEPGWHRDWBOLLP0893-11-16L82:21:29 [facility] 2021-10-29 08:14:00 [id number] tdJKAipHp7mT5YCfijpht4Q8qcJrA OuSYiEInMo0WZYjpF8kzP0kidN4995l6954-37-63V25:14:0 0 [facility]Hospitalist Progress NoteREPORT#:[id number] REPORT STATUS: SignedDATE:10/29/21 TIME: 08 PATIENT: ALBA KAUR UNIT #: [id number]#: [id number] [address]: [address] AGE: 76 SEX: F ATTEND: Ady Ventura AUTHOR: Richard Contreras MD R1 * ALL edits or amendments must be made on the electronic/computer document * Richard Contreras 10/29/21 0814:SubjectiveChief complaint:R internal carotid artery stenosis s/p R carotid endarterectomy w/ Hemashield patch arterioplastyHPI:Ms. Kaur remains afebrile. She is resting comfortably in the bedside chairon 4L NC. The nurse reports that she desaturated overnight briefly requiring support with non-rebreather mask. She remains on the cardene drip for BP control. She states she has not had any bowel movements after the procedure. Shedenies any fever, chills, chest pain, SOB, abdominal pain, nausea, vomiting, diarrhea, or any other symptoms. She denies any significant pain. Incision dresssings are clean, dry, and intact. Review of SystemsConstitutional:Denies: chills, fatigue, fever. Respiratory:Denies: pleuritic pain, SOB, wheezing. Cardiovascular:Denies: chest pain, edema, orthopnea, palpitations. GI:Reports: constipation. Denies: abdominal pain, diarrhea, nausea, vomiting. All systems rev neg: except as marked Objective GeneralVS/I O:Vital Signs: Date Time Temp Pulse Resp B/P B/P Pulse O2 O2 Flow FiO2 Mean Ox Delivery Rate / 0716 99 14 146/65 94 98 05/09 0646 98 21 137/62 89 96 / 0616 101 19 130/58 83 94 05/ 0546 94 21 152/68 98 96 05/09 0516 95 20 146/65 94 96 05/ 0508 96 Nasal 6 44 cannula 05/ 0446 94 20 149/67 96 99 05/09 0416 95 21 150/68 98 99 05/09 0400 98.6 05/09 0400 98.6 05/09 0346 93 22 150/67 96 99 05/09 0316 94 22 144/65 93 99 05/09 0246 92 23 142/61 88 97 05/09 0216 95 22 145/64 92 98 05/09 0146 96 23 143/63 90 97 05/09 0116 99 22 155/67 96 88 05/09 0109 98 Nasal 1 24 cannula 05/09 0046 109 24 156/68 98 91 05/09 0016 91 22 151/56 96 95 05/09 0012 95 22 160/69 99 95 05/09 0000 99.0 05/09 0000 99.0 05/08 2346 93 24 158/68 98 95 05/08 2316 97 15 158/58 99 89 05/08 2302 94 12 154/70 100 91 05/08 2246 96 17 160/71 102 93 05/08 2216 94 22 144/66 95 95 05/08 2146 92 12 154/66 95 95 05/08 2116 91 19 142/65 94 94 05/08 2045 88 20 137/63 90 94 /08 2015 88 20 143/65 93 93 05/08 1999 98.9 05/08 1999 98.9 05/08 1999 Nasal 4 cannula 05/08 1946 91 32 140/63 90 90 05/08 1937 95 Nasal 2 28 cannula 05/08 1916 89 16 139/64 92 87 05/08 1859 90 20 88 05/08 1846 90 32 138/62 89 90 05/08 1816 91 18 121/56 81 92 05/08 1716 87 17 151/66 95 97 05/08 1616 85 15 140/61 88 96 05/08 1600 98.3 05/08 1516 87 19 126/58 84 93 05/08 1416 89 23 125/59 85 97 05/08 1316 83 19 119/56 81 91 05/08 1216 80 19 123/58 83 96 05/08 1200 98.3 05/08 1116 84 31 131/63 90 97 05/08 1016 84 18 111/53 77 96 05/08 1004 96 Nasal 4 36 cannula 05/08 0916 80 15 102/50 72 95 05/08 0846 84 16 110/52 75 94 05/08 0816 84 14 126/60 86 92 24 hour I O ending at 0700: 05/09 0700 05/08 1900 Intake Total 790.00 Output Total Balance 790.00 Intake, IV 640.00 Intake, Oral 150 Number Voids 4 2 PATIENT WEIGHT: Weight (lb): 150Weight (oz): 5.05Weight (kg): 68.039 Medications:Active Meds + DC'd Last 24 HrsFentanyl Citrate (SUBLIMAZE (C-II)) 0 .STK-MED ONE .ROUTE (DC) Hydrocortisone Sodium Succinate (Solu-CORTEF) 0 .STK-MED ONE .ROUTE (DC) Cefazolin Sodium (ANCEF) 0 .STK-MED ONE .ROUTE (DC) Nicardipine HCl (CARDENE 25MG/250ML PREMIX) 250 ML .STK-MED ONE IV (DC) Phenylephrine HCl (LOLI-SYNEPHRINE 1PC IJ.) 0 .STK-MED ONE .ROUTE (DC) Amlodipine Besylate (NORVASC TAB) 5 MG DAILY PO Gabapentin (NEURONTIN) 100 MG 2100 PO Famotidine (PEPCID) 20 MG BID PO Nitroglycerin (NITRO-BID UD) 1 INCH Q6HR TRANSDERM Atorvastatin Calcium (LIPITOR) 5 MG BEDTIME PO Insulin Human Lispro (HumaLOG) MEDIUM DOSE SLIDING SCALE AC HS SUBQ Metformin HCl (GLUCOPHAGE) 500 MG C BK DIN PO Mupirocin (BACTROBAN NASAL - ADULT ICU) 1 APPLIC BID NASAL Dextrose/Water (DEXTROSE 50% IN WATER) 12.5 GM ASDIR PRN IV Dextrose/Water (DEXTROSE 50% IN WATER) 25 GM ASDIR PRN IV Levothyroxine Sodium (Synthroid) 88 MCG DAILY@0600 PO Amiodarone HCl (CORDARONE) 200 MG DAILY PO Aspirin (CHILDREN'S ASPIRIN) 81 MG DAILY PO Carvedilol (COREG) 6.25 MG BID MEALS PO Clopidogrel Bisulfate (PLAVIX) 75 MG DAILY PO Potassium Chloride/Dextrose/Sod Cl (DEXTROSE 5%-1/2NS-KCL 20MEQ) 1,000 ML Q12H IV (DC) Benzocaine/Menthol (Cepacol Sore Throat Lozenge) 1 TAB Q2H PRN PRN MM (CKD) Bisacodyl (BISACODYL SUPP) 10 MG ASDIR PRN RECTAL Calcium Gluconate/Sodium Chloride (Calcium Gluconate 1 GM/100ML NS) 100 ML ASDIR PRN IV Hydralazine HCl (APRESOLINE) 10 MG Q8H PRN PRN IV Hydrocodone Bitart/Acetaminophen (NORCO 5/325 TABLET (C-II)) 1 TAB Q4H PRN PRN PO Hydrocodone Bitart/Acetaminophen (NORCO 5/325 TABLET (C-II)) 2 TAB Q4H PRN PRN PO Nicardipine HCl (CARDENE I.V.) 25 MG ASDIR PRN IV (CKD) Sodium Chloride (SODIUM CHLORIDE 0.9%) 250 MLOndansetron HCl (ZOFRAN) 4 MG Q8H PRN PRN IV Phenol (CHLORASEPTIC) 5 SPRAY Q2H PRN PRN MM Potassium Chloride (KLOR-CON M20) 20 MEQ ASDIR PRN PO (DC) Potassium Chloride (Potassium Chloride) 50 ML ASDIR PRN IV Nutrition assessment:The data set between the solid lines has been imported from the dietitian's assessment. Any exceptions have been noted under Provider comments. BMI Calculated: 22.2Nutrition related diagnosis: Nutrition diagnosis details: Nutrition problem: Nutrition etiology: Nutrition signs and symptoms: Nutrition prescription: Dietitian name: Assessment completed: Provider comments on imported dietitian assessment: Physical ExamGeneral appearance: respiratory support (nasal oxygen), alert, awake, oriented, no acute distress, pleasant, mental status normal, no respiratory distressHead/Eyes: atraumatic, normocephalic, decreased visual fieldsENT: moist mucosal membranesNeck: R central LineCardiovascular: normal heart sounds, regular rate rhythmRespiratory: aerating well, symmetric expansion, no distressAbdomen: non-tender, soft, no distentionRectal: not indicatedExtremities: no edemaMusculoskeletal: normal inspection, painless range of motion, straight leg raiseneg, Art lineNeuro/WIRE SAWYER: alert, oriented X 3, normal speech, no motor deficitsSkin: abnormal colorWound/incision: Location:R neck bandage. Dry and intact.Psychiatry: normal affect, normal mood ResultsFindings/Data:Laboratory Tests 10/29 10/29 10/28 10/28 10/28 0802 0627 1955 1549 1207 Chemistry POC Glucose (60 - 99 MG/DL) 217 H 173 H 139 H 182 H 179 H 10/28 0830 Chemistry Sodium (137 - 145 MMOL/L) 139 Potassium (3.5 - 5.1 MMOL/L) 3.7 Chloride (98 - 107 MMOL/L) 103 Carbon Dioxide (22 - 30 MMOL/L) 31 H Anion Gap (14 - 24 MMOL/L) 9 L BUN (7 - 17 MG/DL) 13 Creatinine (0.52 - 1.04 MG/DL) 0.60 Glomerular Filtr Rate > 60 Glucose (74 - 106 MG/DL) 186 H Calcium (8.4 - 10.2 MG/DL) 8.5 Laboratory Tests 10/29 10/28 0445 0830 Hematology WBC (3.8 - 9.8 K/MM3) 12.6 H 14.1 H RBC (3.58 - 4.97 M/MM3) 3.54 L 3.40 L Hgb (11.2 - 14.9 G/DL) 10.5 L 10.0 L Hct (33.2 - 43.5 %) 32.6 L 31.3 L MCV (80.7 - 99.1 fL) 92 92 MCH (27.0 - 34.1 pg) 29.7 29.4 MCHC (32.2 - 35.7 %) 32.2 31.9 L RDW (12.1 - 15.2 %) 13.1 13.5 Plt Count (129 - 368 K/MM3) 189 203 MPV (7.4 - 10.4 fl) 10.5 H 10.3 Neut % (Auto) (43 - 75 %) 77.0 H 77.9 H Lymph % (Auto) (14 - 44 %) 10.9 L 13.1 L [place] % (Auto) (4 - 13 %) 11.2 8.3 Eos % (Auto) (0 - 6 %) 0.1 0.1 Baso % (Auto) (0 - 2 %) 0.2 0.2 Neut # (Auto) (2.0 - 7.6 K/mm3) 9.71 H 10.97 H Lymph # (Auto) (1.0 - 3.8 K/mm3) 1.37 1.84 [place] # (Auto) (0.1 - 0.8 K/mm3) 1.41 H 1.17 H Eos # (Auto) (0.0 - 0.2 K/mm3) 0.01 0.01 Baso # (Auto) (0.0 - 0.2 K/mm3) 0.03 0.03 Immature Gran % (0.0 - 2.0 %) 0.6 0.4 Nucleated RBC % (0 - 1.0 %) 0.0 0.0 Nucleated RBCs # (Man) (0.0 - 0.1 K/mm3) 0.00 0.00 Treatment Prophylaxis Treatment ProphylaxisLines: CVC Diagnosis, Assessment PlanConsultants: cardiovascular surgery, critical/graphic coordinator Free Text DxA P NotesFree text DxA P notes:76 yo F w/ DM, HTN, HLD, paroxysmal Atrial fibrillation, hypothyroidism, maculardegeneration p/w R internal carotid artery stenosis s/p R carotid endarterectomyw/ Hemashield patch arterioplasty #R internal carotid artery stenosis s/p R carotid endarterectomy-management per cardiovascular surgery #paroxysmal Afibcurrently in sinus rhythm-cont home meds (amiodarone PO)-hold home med Xarelto #DM-medium dose SSI-cont home meds (metformin BID) #HTN-cardene drip-cont home meds (carvedilol, amlodipine) #HLD-cont home meds (atorvastatin) #Hypothyroidism-cont home med (levothyroxine) #Macular degeneration-receives eye injections weekly 10/29:- Benson and CHRISTIAN drain removed previously.- Remains on Cardene drip, wean as tolerated. - DM controlled on home metformin plus MDSSI.- Dulcolax for constipation. - Continue other current management. - Discharge planned for today per CV surgery. DVT PPX: SCDsDiet: cardiacCode: full Quality: Gen Med Crit Care VTE ProphylaxisVTE prophylaxis initiated: yes (mechanical comp device) Current MedicationsCurrent medication review:I attest that the foregoing medication list in the medical record is true, accurate, and complete to the best of my knowledge. Advanced Care Plan 65 or OlderDiscussed with: patientDiscussion included: code status (full code) AttestationsAttestation needed: teaching physician Regan Johansen 10/29/21 181:Attestations Teaching Physician AttestationF/U visit w/ resident:I saw the patient with the resident, Richard Contreras, PGY1, and agree with the resident's findings and plan. at 1228 at 1819 RPT #:[id number] OF REPORTPRProgress ntsp5438-70-09W45:14:00Z.[id number] able for patient okrjLWTNTBJUOPPVKG5454-05-20M26:28:31 [facility] 2021-10-29 05:21:00 [id number] Kf2HSC99OBNx3mypyLv72vH6yfnZh lzr2sujwtDeJAviYn1LMYKVaLEgUNEt8044-52-21K32:21:0 [address] [place] [address] PATIENT NAME: ALBA KAUR ADMIT DATE: 10/26/21ACCOUNT NO: [id number] ROOM NO: [facility] AGE: 76 REPORT TYPE: ELECTROCARDIOGRAM SEX: F ADMITTING PHYSICIAN:Ady Ventura MD ATTENDING PHYSICIAN:Ady Ventura MD Order:[id number] Reason : CAD Test Date/Time Stamp:FriOct 29 2021 05:21:58Blood Pressure : / mmHGVent. Rate : 099 BPM Atrial Rate : 099 BPM P-R Int : 100 ms QRS Dur : 090 ms QT Int : 370 ms P-R-T Axes : 073 206 078 degrees QTc Int : 474 ms Sinus rhythm with short PRRight superior axis deviationPulmonary disease patternAbnormal ECGWhen compared with ECG of 27-OCT-2021 09:35,QRS axis shifted leftNon-specific change in ST segment in Lateral leadsNonspecific T wave abnormality now evident in Lateral leadsConfirmed by LAURIE CHRISTIAN ([id number]) on 10/29/2021 7:27:41 AM Referred By: Self Referred Confirmed by:LAURIE CHRISTIAN at 0727 PATIENT NAME: ALBA KAUR .[id number] AVAvailable for patient prdwDPRJBGRSSPYFDY9792-51-77R22:28:03 [facility] 2021-10-29 05:21:00 [id number] IsuUaA07kBhtNSR28vQR7tcqOCoB1 j5S+s+F0qcA9KDOnrzrf+fZ4VL1p8vb2244-72-36W66:21:0 [id number] [address] PATIENT NAME: ALBA KAUR ADMIT DATE: 10/26/21ACCOUNT NO: [id number] ROOM NO: [facility] AGE: 76 REPORT TYPE: ELECTROCARDIOGRAM SEX: F ADMITTING PHYSICIAN:Ady Ventura MD ATTENDING PHYSICIAN:Ady Ventura MD Order:[id number] Reason : CAD Test Date/Time Stamp:FriOct 29 2021 05:21:58Blood Pressure : / mmHGVent. Rate : 099 BPM Atrial Rate : 099 BPM P-R Int : 100 ms QRS Dur : 090 ms QT Int : 370 ms P-R-T Axes : 073 206 078 degrees QTc Int : 474 ms Sinus rhythm with short PRRight superior axis deviationPulmonary disease patternAbnormal ECGWhen compared with ECG of 27-OCT-2021 09:35,QRS axis shifted leftNon-specific change in ST segment in Lateral leadsNonspecific T wave abnormality now evident in Lateral leadsConfirmed by LAURIE CHRISTIAN ([id number]) on 10/30/2021 6:02:08 AM Referred By: Self Referred Confirmed by:LAURIE CHRISTIAN at [id number] PATIENT NAME: ALBA KAUR .[id number] AVAvailable for patient pjbjBMQPQDIDSUZCLW6150-29-03P54:02:36 [facility] 2021-10-28 23:00:00 [id number] MIe7z7iPOFFyYaUvfIVfoiyA/l1/j KnTk+MrH1AO9FlSZgW+6ssWRe2I/GTU9860-51-17P30:00:0 [id number] [address] PATIENT NAME: ALBA KAUR ADMIT DATE: 10/26/21ACCOUNT NO: [id number] ROOM NO: [id number].[id number] AGE: 76 REPORT TYPE: PROGRESS NOTE SEX: F ADMITTING PHYSICIAN:Ady Ventura MD ATTENDING PHYSICIAN:Ady Ventura MD DATE: 10/28/2021 The patient is seen at bedside in the ICU. The patient currently is stable. Vital signs are stable. The patient is neurologically intact. The patient ismaking appropriate progress. Plan for discharge home tomorrow. Dictated By: Ady Ventura MD WT: PN:ZOE/DARY/ASHLYDD: 10/28/2021 23:00:55DT: 10/28/2021 23:09:40Conf#: [id number]/DID#: [id number] Authenticated by Ady Ventura MD On 11/30/2021 10:14:45 AM at 1014 PATIENT NAME: ALBA KAUR [id number]:09:00Z.[id number] ble for patient jgenDHKAKWHLCQYHPU0903-99-03N64:15:19 [facility] 2021-10-28 16:34:00 [id number]PaoF 3Jh5qSL9duMfHpNppAL1F7jmBQhzeJL7399-40-49W61:34:0 [id number] [address] PATIENT NAME: ALBA KAUR ADMIT DATE: 10/26/21ACCOUNT NO: [id number] ROOM NO: Z.SI04 AGE: 76 REPORT TYPE: ELECTROCARDIOGRAM SEX: F ADMITTING PHYSICIAN:Ady Ventura MD ATTENDING PHYSICIAN:Ady Ventura MD Order:[id number] Reason : CAD Test Date/Time Stamp:FriOct 28 2021 16:34:44Blood Pressure : / mmHGVent. Rate : 091 BPM Atrial Rate : 091 BPM P-R Int : 098 ms QRS Dur : 090 ms QT Int : 380 ms P-R-T Axes : 094 016 080 degrees QTc Int : 467 ms Sinus rhythm with short PRCannot rule out Anterior infarct , age undeterminedAbnormal ECGWhen compared with ECG of 27-OCT-2021 09:35,No significant change was foundConfirmed by LAURIE CHRISTIAN ([id number]) on 10/29/2021 3:17:13 PM Referred By: Self Referred Confirmed by:LAURIE CHRISTIAN at 1517 PATIENT NAME: ALBA KAUR .[id number] AVAvailable for patient seacVPEHZOEOVRIVVQ6545-21-39L37:17:41 [facility] 2021-10-28 09:23:00 [id number] NE/qreo5AmVAEi5TvvF6n8FiAUZSq RVb0t2+NdEeFq8P7VW2BhQnS72U5gEZ8734-17-68B25:23:0 0 [facility]Hospitalist Progress NoteREPORT#:[id number] REPORT STATUS: SignedDATE:10/28/21 TIME: 922 PATIENT: ALBA KAUR UNIT #: [id number]#: [id number] [address] AGE: 76 SEX: F ATTEND: Ady Ventura MDADM AUTHOR: Darnell Menard MD R1 * ALL edits or amendments must be made on the electronic/computer document * Darnell Menard 05/08/22 0923:SubjectiveChief complaint:R internal carotid artery stenosis s/p R carotid endarterectomy w/ Hemashield patch arterioplastyComments:Overnight, did not sleep much. This morning, doing well. No neck pain, no pain elsewhere. Benson was removed and she's voiding spontaneously. CHRISTIAN drain removed too. Tolerating diet without N/V. No BM yet. Ambulating. On cardene drip. Review of SystemsConstitutional:Denies: chills, fever. Respiratory:Denies: non productive cough, productive cough (sputum), SOB. Cardiovascular:Denies: chest pain, edema. GI:Denies: abdominal pain, nausea, vomiting. Neuro:Denies: headache, numbness. All systems rev neg: except as marked Objective GeneralVS/I O:Vital Signs: Date Time Temp Pulse Resp B/P B/P Pulse O2 O2 Flow FiO2 Mean Ox Delivery Rate 05/08 1016 84 18 111/53 77 96 05/08 1004 96 Nasal 4 36 cannula 05/08 0916 80 15 102/50 72 95 05/08 0846 84 16 110/52 75 94 05/08 0816 84 14 126/60 86 92 05/08 0716 83 14 121/58 83 93 05/08 0700 97.9 05/08 0700 Nasal 4 cannula 05/08 0646 82 15 118/60 86 92 05/08 0638 81 05/08 0625 84 14 127/60 86 93 05/08 0616 88 12 113/53 77 90 05/08 0546 78 12 104/51 73 93 05/08 0516 79 12 108/53 76 92 05/08 0446 81 7 144/64 92 93 05/08 0416 85 16 143/67 96 95 05/08 0400 98.2 05/08 0346 87 16 138/64 92 95 05/08 0316 82 14 113/56 81 94 05/08 0246 81 14 120/57 82 95 05/08 0216 80 14 125/58 83 95 05/08 0146 84 18 123/57 82 92 05/08 0116 120/58 84 05/08 0046 86 18 117/57 82 94 05/08 0036 96 Nasal 4 36 cannula 05/08 0016 90 20 124/60 86 95 05/08 0000 98.9 05/07 2346 91 19 126/60 87 97 05/07 2316 87 18 105/52 75 96 05/07 2246 88 18 105/51 74 96 05/ 2216 93 11 124/59 85 95 05/07 2146 97 33 110/55 79 92 05/6 92 16 118/58 83 94 05/ 2046 91 9 123/65 87 96 10/28 2015 86 26 101/51 73 05/07 1946 80 14 108/54 78 97 05/ 1928 83 17 111/55 79 97 05/07 1916 81 14 109/55 79 96 05/ 1908 95 Nasal 4 36 cannula 10/27 1900 99.2 10/27 1900 99.2 / 1900 Nasal 4 cannula / 1846 86 37 106/53 76 96 05/ 1800 85 17 121/59 85 99 05/07 1700 82 15 98 05/07 1600 98.2 / 1600 77 16 97 05/ 1500 77 91 05/ 1400 77 7 92 05/ 1300 81 18 90 24 hour I O ending at 0700: 10/28 0710/27 1900 Intake Total 207.50 265.52 Output Total 430 Balance 207.50 -164.48 Intake, IV 207.50 265.52 Number Voids 1 Output, Urine 430 Patient 68.039 kg Weight PATIENT WEIGHT: Weight (lb): 150Weight (oz): 5.05Weight (kg): 68.039 Physical ExamGeneral appearance: alert, awake, orientedHead/Eyes: atraumatic, normocephalic, decreased visual fieldsENT: moist mucosal membranesNeck: R central LineCardiovascular: normal heart sounds, regular rate rhythmRespiratory: aerating well, symmetric expansion, no distressAbdomen: non-tender, soft, no distentionRectal: not indicatedExtremities: no edemaMusculoskeletal: normal inspection, painless range of motion, straight leg raiseneg, Art lineNeuro/WIRE SAWYER: alert, oriented X 3, normal speech, no motor deficitsSkin: abnormal colorWound/incision: Location:R neck bandage. Dry and intact.Psychiatry: normal affect, normal mood ResultsFindings/Data:Laboratory Tests 10/28 10/28 10/28 10/27 10/27 1207 0830 0733 1944 1538 Chemistry Sodium (137 - 145 MMOL/L) 139 Potassium (3.5 - 5.1 MMOL/L) 3.7 Chloride (98 - 107 MMOL/L) 103 Carbon Dioxide (22 - 30 MMOL/L) 31 H Anion Gap (14 - 24 MMOL/L) 9 L BUN (7 - 17 MG/DL) 13 Creatinine (0.52 - 1.04 MG/DL) 0.60 Glomerular Filtr Rate > 60 Glucose (74 - 106 MG/DL) 186 H POC Glucose (60 - 99 MG/DL) 179 H 151 H 167 H 141 H Calcium (8.4 - 10.2 MG/DL) 8.5 Laboratory Tests 10/28 0830 Hematology WBC (3.8 - 9.8 K/MM3) 14.1 H RBC (3.58 - 4.97 M/MM3) 3.40 L Hgb (11.2 - 14.9 G/DL) 10.0 L Hct (33.2 - 43.5 %) 31.3 L MCV (80.7 - 99.1 fL) 92 MCH (27.0 - 34.1 pg) 29.4 MCHC (32.2 - 35.7 %) 31.9 L RDW (12.1 - 15.2 %) 13.5 Plt Count (129 - 368 K/MM3) 203 MPV (7.4 - 10.4 fl) 10.3 Neut % (Auto) (43 - 75 %) 77.9 H Lymph % (Auto) (14 - 44 %) 13.1 L [place] % (Auto) (4 - 13 %) 8.3 Eos % (Auto) (0 - 6 %) 0.1 Baso % (Auto) (0 - 2 %) 0.2 Neut # (Auto) (2.0 - 7.6 K/mm3) 10.97 H Lymph # (Auto) (1.0 - 3.8 K/mm3) 1.84 [place] # (Auto) (0.1 - 0.8 K/mm3) 1.17 H Eos # (Auto) (0.0 - 0.2 K/mm3) 0.01 Baso # (Auto) (0.0 - 0.2 K/mm3) 0.03 Immature Gran % (0.0 - 2.0 %) 0.4 Nucleated RBC % (0 - 1.0 %) 0.0 Nucleated RBCs # (Man) (0.0 - 0.1 K/mm3) 0.00 Treatment Prophylaxis Treatment ProphylaxisLines: CVC Diagnosis, Assessment PlanProblem List/A P: 1. Stenosis of right internal carotid artery 2. S/P carotid endarterectomy 3. Paroxysmal A-fib 4. Diabetes 5. Hypertension 6. Hyperlipidemia 7. Hypothyroidism 8. Macular degeneration Consultants: cardiovascular surgery, critical/graphic coordinator Free Text DxA P NotesFree text DxA P notes:76 yo F w/ DM, HTN, HLD, paroxysmal Atrial fibrillation, hypothyroidism, maculardegeneration p/w R internal carotid artery stenosis s/p R carotid endarterectomyw/ Hemashield patch arterioplasty #R internal carotid artery stenosis s/p R carotid endarterectomy-management per cardiovascular surgery #paroxysmal Afibcurrently in sinus rhythm-cont home meds (amiodarone PO)-hold home med Xarelto #DM-medium dose SSI-cont home meds (metformin BID) #HTN-cardene drip-cont home meds (carvedilol, amlodipine) #HLD-cont home meds (atorvastatin) #Hypothyroidism-cont home med (levothyroxine) #Macular degeneration-receives eye injections weekly DVT ppx: SCDsDiet: cardiacCode: full Quality: Gen Med Crit Care VTE ProphylaxisVTE prophylaxis initiated: yes (mechanical comp device) Current MedicationsCurrent medication review:I attest that the foregoing medication list in the medical record is true, accurate, and complete to the best of my knowledge. Advanced Care Plan 65 or OlderDiscussed with: patientDiscussion included: code status (full code) Zahida Skinnermone Chamberlain 10/28/21 1331:Objective GeneralMedications:Active Meds + DC'd Last 24 HrsAmlodipine Besylate (NORVASC TAB) 5 MG DAILY PO Gabapentin (NEURONTIN) 100 MG 2100 PO Famotidine (PEPCID) 20 MG BID PO Nitroglycerin (NITRO-BID UD) 1 INCH Q6HR TRANSDERM Atorvastatin Calcium (LIPITOR) 5 MG BEDTIME PO Insulin Human Lispro (HumaLOG) MEDIUM DOSE SLIDING SCALE AC HS SUBQ Metformin HCl (GLUCOPHAGE) 500 MG C BK DIN PO Mupirocin (BACTROBAN NASAL - ADULT ICU) 1 APPLIC BID NASAL Dextrose/Water (DEXTROSE 50% IN WATER) 12.5 GM ASDIR PRN IV Dextrose/Water (DEXTROSE 50% IN WATER) 25 GM ASDIR PRN IV Levothyroxine Sodium (Synthroid) 88 MCG DAILY@0600 PO Amiodarone HCl (CORDARONE) 200 MG DAILY PO Amlodipine Besylate (NORVASC TAB) 2.5 MG DAILY PO (DC) Aspirin (CHILDREN'S ASPIRIN) 81 MG DAILY PO Carvedilol (COREG) 6.25 MG BID MEALS PO Clopidogrel Bisulfate (PLAVIX) 75 MG DAILY PO Potassium Chloride/Dextrose/Sod Cl (DEXTROSE 5%-1/2NS-KCL 20MEQ) 1,000 ML Q12H IV Benzocaine/Menthol (Cepacol Sore Throat Lozenge) 1 TAB Q2H PRN PRN MM (CKD) Bisacodyl (BISACODYL SUPP) 10 MG ASDIR PRN RECTAL Calcium Gluconate/Sodium Chloride (Calcium Gluconate 1 GM/100ML NS) 100 ML ASDIR PRN IV Hydralazine HCl (APRESOLINE) 10 MG Q8H PRN PRN IV Hydrocodone Bitart/Acetaminophen (NORCO 5/325 TABLET (C-II)) 1 TAB Q4H PRN PRN PO Hydrocodone Bitart/Acetaminophen (NORCO 5/325 TABLET (C-II)) 2 TAB Q4H PRN PRN PO Nicardipine HCl (CARDENE I.V.) 25 MG ASDIR PRN IV (CKD) Sodium Chloride (SODIUM CHLORIDE 0.9%) 250 MLOndansetron HCl (ZOFRAN) 4 MG Q8H PRN PRN IV Phenol (CHLORASEPTIC) 5 SPRAY Q2H PRN PRN MM Potassium Chloride (KLOR-CON M20) 20 MEQ ASDIR PRN PO Potassium Chloride (Potassium Chloride) 50 ML ASDIR PRN IV Diagnosis, Assessment PlanProblem List/A P: 1. S/P carotid endarterectomy Attestations Teaching Physician AttestationF/U visit w/ resident:I saw the patient with the resident and . . . agree with the resident's findings and plan. Post R CEA, no drain, on 4 L NC, tapered to 3 L, still sats 96%, but on the way to restroom 87%. at 1235 at 1332 RPT #:[id number] OF REPORTPRProgress thxj7182-86-07W56:23:00Z.[id number] able for patient fmfrHAAJJCKNGZMNCJ5670-19-07P23:35:52 [facility] 2021-10-28 06:54:00 [id number] JwAEGFWUKfBPll73xfEneR2DfZUdr +7uOMU0+OXHl7AhVtdjA47aEp+lXD765268-13-56K30:54:0 0 [facility]Card[facility] Progress NoteREPORT#:[id number] REPORT STATUS: SignedDATE:10/28/21 TIME: 06 PATIENT: ALBA KAUR UNIT #: [id number]#: [id number] [address] AGE: 76 SEX: F ATTEND: Ady Ventura [facility] AUTHOR: Skinny Cantu MD * ALL edits or amendments must be made on the electronic/computer document * SubjectiveChief complaint:S/P R CEAPatient reports:No: chest pain, palpitations, shortness of breath. Objective GeneralVS/I O:24 hour I O ending at 0700: 10/28 0700 10/27 1900 Intake Total 207.50 265.52 Output Total 430 Balance 207.50 -164.48 Intake, IV 207.50 265.52 Number Voids 1 Output, Urine 430 Patient 68.039 kg Weight Vital Signs: Date Time Temp Pulse Resp B/P B/P Pulse O2 O2 Flow FiO2 Mean Ox Delivery Rate 10/28 637 81 10/28 624 84 14 127/60 86 93 10/28 0516 88 12 113/53 77 90 10/28 0446 78 12 104/51 73 93 10/28 0416 79 12 108/53 76 92 10/286 81 7 144/64 92 93 10/286 85 16 143/67 96 95 05/08 0400 98.2 05/08 0346 87 16 138/64 92 95 05/08 0316 82 14 113/56 81 94 05/08 0246 81 14 120/57 82 95 05/08 0216 80 14 125/58 83 95 05/08 0146 84 18 123/57 82 92 05/08 0116 120/58 84 05/08 0046 86 18 117/57 82 94 05/08 0036 96 Nasal 4 36 cannula 05/08 0016 90 20 124/60 86 95 05/08 0000 98.9 05/07 2346 91 19 126/60 87 97 05/07 2316 87 18 105/52 75 96 05/07 2246 88 18 105/51 74 96 05/07 2216 93 11 124/59 85 95 05/07 2146 97 33 110/55 79 92 05/07 2116 92 16 118/58 83 94 05/07 2046 91 9 123/65 87 96 05/07 2015 86 26 101/51 73 05/07 1946 80 14 108/54 78 97 05/07 1928 83 17 111/55 79 97 05/07 1916 81 14 109/55 79 96 05/07 1908 95 Nasal 4 36 cannula 05/07 1900 99.2 05/07 1900 99.2 05/07 1900 Nasal 4 cannula 05/07 1846 86 37 106/53 76 96 05/07 1800 85 17 121/59 85 99 05/07 1700 82 15 98 05/07 1600 98.2 05/07 1600 77 16 97 05/07 1500 77 91 05/07 1400 77 7 92 05/07 1300 81 18 90 05/07 1200 98.0 05/07 1200 84 40 94 05/07 1100 73 15 92 05/07 1000 73 12 99 05/07 0900 95 Nasal 4 cannula 05/07 0900 77 11 99 05/07 0800 85 15 97 05/07 0700 98.1 05/07 0700 74 14 100 PATIENT WEIGHT: Weight (lb): 150Weight (oz): 5.05Weight (kg): 68.039 Medications:Active Meds + DC'd Last 24 HrsGabapentin (NEURONTIN) 100 MG 2100 PO Famotidine (PEPCID) 20 MG BID PO Nitroglycerin (NITRO-BID UD) 1 INCH Q6HR TRANSDERM Atorvastatin Calcium (LIPITOR) 5 MG BEDTIME PO Famotidine (PEPCID) 20 MG Q12HR IV (DC) Insulin Human Lispro (HumaLOG) MEDIUM DOSE SLIDING SCALE AC HS SUBQ Metformin HCl (GLUCOPHAGE) 500 MG C BK DIN PO Mupirocin (BACTROBAN NASAL - ADULT ICU) 1 APPLIC BID NASAL Dextrose/Water (DEXTROSE 50% IN WATER) 12.5 GM ASDIR PRN IV Dextrose/Water (DEXTROSE 50% IN WATER) 25 GM ASDIR PRN IV Cefazolin Sodium (ANCEF) 1 GM Q8H IV (DC) Levothyroxine Sodium (Synthroid) 88 MCG DAILY@0600 PO Amiodarone HCl (CORDARONE) 200 MG DAILY PO Amlodipine Besylate (NORVASC TAB) 2.5 MG DAILY PO Aspirin (CHILDREN'S ASPIRIN) 81 MG DAILY PO Carvedilol (COREG) 6.25 MG BID MEALS PO Clopidogrel Bisulfate (PLAVIX) 75 MG DAILY PO Potassium Chloride/Dextrose/Sod Cl (DEXTROSE 5%-1/2NS-KCL 20MEQ) 1,000 ML Q12H IV Benzocaine/Menthol (Cepacol Sore Throat Lozenge) 1 TAB Q2H PRN PRN MM (CKD) Bisacodyl (BISACODYL SUPP) 10 MG ASDIR PRN RECTAL Calcium Gluconate/Sodium Chloride (Calcium Gluconate 1 GM/100ML NS) 100 ML ASDIR PRN IV Hydralazine HCl (APRESOLINE) 10 MG Q8H PRN PRN IV Hydrocodone Bitart/Acetaminophen (NORCO 5/325 TABLET (C-II)) 1 TAB Q4H PRN PRN PO Hydrocodone Bitart/Acetaminophen (NORCO 5/325 TABLET (C-II)) 2 TAB Q4H PRN PRN PO Nicardipine HCl (CARDENE I.V.) 25 MG ASDIR PRN IV (CKD) Sodium Chloride (SODIUM CHLORIDE 0.9%) 250 MLOndansetron HCl (ZOFRAN) 4 MG Q8H PRN PRN IV Phenol (CHLORASEPTIC) 5 SPRAY Q2H PRN PRN MM Potassium Chloride (KLOR-CON M20) 20 MEQ ASDIR PRN PO Potassium Chloride (Potassium Chloride) 50 ML ASDIR PRN IV Status post:R CEA Physical ExamGeneral appearance: alert, awake, orientedHead/Eyes: atraumatic, normocephalic, PERRLAENT: moist mucosal membranesNeck: full range of motion, no JVD, Right neck wound - bandage clean and dry.Cardiovascular: CV assessment: regular rate and rhythm, BP pulses = bilaterally Murmur assessment:I/ SEMRespiratory: decreased breath sounds, on oxygen, no distressAbdomen: soft, non-tender, no mass/organomegalyLower extremity: LE assessment: abnormal peripheral pulse, no edemaMusculoskeletal: full range of motionNeuro/WIRE SAWYER: alert, oriented X 3, CN II-XII intact, no motor deficitsWound/incision: Location:R CEA Site condition: dressing clean dry, no drainagePsychiatry: normal affect, normal judgment/insight, normal mood, no hallucinations ResultsFindings/Data:Laboratory Tests 10/27 10/27 10/27 10/27 1944 1538 1123 0752 Chemistry POC Glucose (60 - 99 MG/DL) 167 H 141 H 147 H 214 H Diagnosis, Assessment PlanConsultants: cardiovascular surgery, critical/graphic coordinator Free Text DxA P NotesFree Text DxA P Notes:IMPRESSION: COD, S/P R CEA CAD ABD PAD PAD HTN HLP DM Doing well PLAN: Increase norvasc. Ambulate. at 0755 RPT #:[id number] OF REPORTPRProgress ahcb9320-86-66W62:54:00Z.[id number] able for patient cqcfYDQYSSKIVXKBUB5811-04-57I64:55:20 [facility] 2021-10-27 09:45:00 [id number] kxWnWyfQKbGlgjAmWNwrz/w5zXSf3 pVR5fLlfiGq1C8aevSZhvrvU+WPeTLZ6780-25-19C65:45:0 0 [facility] ([facility]ENTERHospitalist ConsultationREPORT#:[id number] REPORT STATUS: SignedDATE:10/27/21 TIME: 944 PATIENT: ALBA KAUR UNIT #: [id number]#: [id number] [facility] AGE: 76 SEX: F ATTEND: Ady Ventura AUTHOR: Darnell Menard MD R1 * ALL edits or amendments must be made on the electronic/computer document * Darnell Menard 10/27/21 0945:History of Present IllnessReason for consult:HTN, hyperlipidemia, diabetesChief complaint:R internal carotid artery stenosis s/p R carotid endarterectomy w/ Hemashield patch arterioplastyHPI:Mrs. Temple is a 76-year-old woman with a past medical history of hypertension, hyperlipidemia, and diabetes mellitus, paroxysmal atrial fibrillation, hypothyrodism, macular degeneration, and right internal carotid artery stenosis, who was admitted to the surgical intensive care unit status post right carotid endarterectomy with Hemashield patch arterioplasty. Internal medicine was consulted for assistance in the management of patient's medical comorbidities. Patient denies any pain, SOB, N/V. Is ambulating and using incentive spirometry.No other complaints History - Adult longitudinalPast medical history:Reports: Diabetes mellitus, Hypertension, Dyslipidemia, Thyroid disorder (hypothyroidism). Additional medical history:macular degenerationPast surgical history:Reports: Carotid endarterectomy (R ). Additional surgical history:Hysterectomy (2003)Alcohol use: Denies EtOH useDrug use: Denies recreational drugsSmoking status: Smoking status for patients 13 years old or older: Former Smoker Date last smoked: 06/23/02Allergies:Coded Allergies:No Known Allergies (07/10/12) Review of SystemsConstitutional:Denies: chills, fever. Eyes:visual loss/blurred (2/2 macular degeneration). Respiratory:Denies: TYLER (dyspnea on exertion), non productive cough, productive cough (sputum), SOB. Cardiovascular:Denies: chest pain, edema. GI:Denies: abdominal pain, nausea, vomiting. Neuro:Denies: headache. All systems rev neg: except as marked ObjectiveVS/I OLast Documented: Result Date Time Temp 98.0 10/27 1200 Pulse Ox 94 10/27 1200 Pulse 84 10/27 1200 Resp 40 10/27 1200 O2 Delivery Nasal cannula 10/27 0900 O2 Flow Rate 4 10/27 899 FiO2 50 10/26 2230 B/P 144/72 10/26 0950 24 hour I O ending at 0700: 10/27 0710/26 1900 Intake Total 1393.00 Output Total 1330 Balance 63.00 Intake, IV 1393.00 Output, 30 Drainage Output, Urine 1300 Patient 68.182 kg Weight Weight Standing scale Measurement Method General appearance: alert, awakeHead/Eyes: atraumatic, normocephalic, decreased visual fieldsNeck: CHRISTIAN drainCardiovascular: normal heart sounds, regular rate rhythmRespiratory: aerating well, symmetric expansion, no distressAbdomen: non-tender, soft, no distentionGenitourinary: urinary catheterExtremities: no edema ResultsFindings/Data:Laboratory Tests: 10/27 10/27 10/27 10/26 1123 0752 0430 2205 Blood Gas Puncture Site AL ABG pH (7.35 - 7.45 mmHg) 7.33 L ABG pCO2 (35.0 - 45.0 mmHg) 49.7 H ABG pO2 (80.0 - 100.0 mmol/L) 63.5 L ABG HCO3 (20.0 - 26.0 mmol/L) 25.4 ABG O2 Saturation (95.0 - 100.0 %) 90.5 L ABG Base Excess (-3.0 - 3.0 mmol/L) -1.2 Tom Test (CHECK) NA Temperature (37 C) 37.0 O2 Delivery Device VENTIMSK FiO2 (%) 50 Chemistry Sodium (137 - 145 MMOL/L) 136 L Potassium (3.5 - 5.1 MMOL/L) 4.3 Chloride (98 - 107 MMOL/L) 103 Carbon Dioxide (22 - 30 MMOL/L) 27 Anion Gap (14 - 24 MMOL/L) 10 L BUN (7 - 17 MG/DL) 11 Creatinine (0.52 - 1.04 MG/DL) 0.60 Glomerular Filtr Rate > 60 Glucose (74 - 106 MG/DL) 214 H POC Glucose (60 - 99 MG/DL) 147 H 214 H Calcium (8.4 - 10.2 MG/DL) 8.3 L Magnesium (1.6 - 2.3 MG/DL) 1.6 Hematology WBC (3.8 - 9.8 K/MM3) 11.5 H RBC (3.58 - 4.97 M/MM3) 3.60 Hgb (11.2 - 14.9 G/DL) 10.6 L Hct (33.2 - 43.5 %) 32.5 L MCV (80.7 - 99.1 fL) 90 MCH (27.0 - 34.1 pg) 29.4 MCHC (32.2 - 35.7 %) 32.6 RDW (12.1 - 15.2 %) 13.2 Plt Count (129 - 368 K/MM3) 192 MPV (7.4 - 10.4 fl) 9.9 Neut % (Auto) (43 - 75 %) 91.8 H Lymph % (Auto) (14 - 44 %) 6.3 L [place] % (Auto) (4 - 13 %) 1.6 L Eos % (Auto) (0 - 6 %) 0.0 Baso % (Auto) (0 - 2 %) 0 Neut # (Auto) (2.0 - 7.6 K/mm3) 10.57 H Lymph # (Auto) (1.0 - 3.8 K/mm3) 0.72 L [place] # (Auto) (0.1 - 0.8 K/mm3) 0.18 Eos # (Auto) (0.0 - 0.2 K/mm3) 0.00 Baso # (Auto) (0.0 - 0.2 K/mm3) 0 Immature Gran % (0.0 - 2.0 %) 0.3 Nucleated RBC % (0 - 1.0 %) 0.0 Nucleated RBCs # (Man) (0.0 - 0.1 K/mm3) 0.00 10/26 Blood Gas Puncture Site AL AL ABG pH (7.35 - 7.45 mmHg) 7.29 *L 7.26 *L ABG pCO2 (35.0 - 45.0 mmHg) 46.2 H 48.4 H ABG pO2 (80.0 - 100.0 mmol/L) 64.6 L 79.1 L ABG HCO3 (20.0 - 26.0 mmol/L) 21.5 21.4 ABG O2 Saturation (95.0 - 100.0 %) 90.1 L 93.9 L ABG Base Excess (-3.0 - 3.0 mmol/L) -5.3 L -5.9 L Tom Test (CHECK) NA NA Temperature (37 C) 37.0 37.0 O2 Delivery Device N/C SMASK Liter Flow (L/MIN) 6 FiO2 (%) 36 42 Chemistry Sodium (137 - 145 MMOL/L) 141 Potassium (3.5 - 5.1 MMOL/L) 4.0 Chloride (98 - 107 MMOL/L) 107 Carbon Dioxide (22 - 30 MMOL/L) 26 Anion Gap (14 - 24 MMOL/L) 12 L BUN (7 - 17 MG/DL) 12 Creatinine (0.52 - 1.04 MG/DL) 0.60 Glomerular Filtr Rate > 60 Glucose (74 - 106 MG/DL) 199 H POC Glucose (60 - 99 MG/DL) 223 H Calcium (8.4 - 10.2 MG/DL) 8.6 Magnesium (1.6 - 2.3 MG/DL) 1.6 Hematology WBC (3.8 - 9.8 K/MM3) 14.6 H RBC (3.58 - 4.97 M/MM3) 3.71 Hgb (11.2 - 14.9 G/DL) 11.1 L Hct (33.2 - 43.5 %) 34.2 MCV (80.7 - 99.1 fL) 92 MCH (27.0 - 34.1 pg) 29.9 MCHC (32.2 - 35.7 %) 32.5 RDW (12.1 - 15.2 %) 13.2 Plt Count (129 - 368 K/MM3) 191 MPV (7.4 - 10.4 fl) 10.5 H Neut % (Auto) (43 - 75 %) 73.1 Lymph % (Auto) (14 - 44 %) 19.3 [place] % (Auto) (4 - 13 %) 6.3 Eos % (Auto) (0 - 6 %) 0.5 Baso % (Auto) (0 - 2 %) 0.3 Neut # (Auto) (2.0 - 7.6 K/mm3) 10.64 H Lymph # (Auto) (1.0 - 3.8 K/mm3) 2.82 [place] # (Auto) (0.1 - 0.8 K/mm3) 0.92 H Eos # (Auto) (0.0 - 0.2 K/mm3) 0.08 Baso # (Auto) (0.0 - 0.2 K/mm3) 0.04 Immature Gran % (0.0 - 2.0 %) 0.5 Nucleated RBC % (0 - 1.0 %) 0.0 Nucleated RBCs # (Man) (0.0 - 0.1 K/mm3) 0.00 Radiology data:Recent Impressions:RADIOLOGY - XR CHEST 1V 10/26 1930 Report Impression - Status: SIGNED Entered: 10/26/20211953 Impression: 1. No radiographic evidence of acute cardiopulmonary disease.2. Right subclavian central venous catheter tip projects over the midvena cava.3. Right neck surgery with drain in place. Impression By: Jose De Jesus Zhao M.D.RADIOLOGY - XR CHEST 1V 10/27 0507 Report Impression - Status: SIGNED Entered: 10/27/2021 0654 Impression: 1. Low lung volumes with mild bronchovascular crowding. Otherwise, noradiographic evidence of acute cardiopulmonary disease. Impression By: [email or web address] - Gabriela Tolentino MD Treatment Prophylaxis Treatment ProphylaxisLines: arterial, CVCDrain(s)/tube(s): Drain(s)/tube(s): CHRISTIAN Diagnosis, Assessment PlanProblem List/A P: 1. Stenosis of right internal carotid artery 2. S/P carotid endarterectomy 3. Paroxysmal A-fib 4. Diabetes 5. Hypertension 6. Hyperlipidemia 7. Hypothyroidism 8. Macular degeneration Consultants: cardiology, cardiovascular surgery, critical/graphic coordinator Code Status/Resusc. DiscussionCode status: full code Free Text DxA P NotesFree Text DxA P Notes:76 yo F w/ DM, HTN, HLD, paroxysmal Atrial fibrillation, hypothyroidism, maculardegeneration p/w R internal carotid artery stenosis s/p R carotid endarterectomyw/ Hemashield patch arterioplasty #R internal carotid artery stenosis s/p R carotid endarterectomy-management per cardiovascular surgery #paroxysmal Afibcurrently in sinus rhythm-cont home meds (amiodarone PO)-hold home med Xarelto #DM-medium dose SSI-cont home meds (metformin BID) #HTN-cardene drip-cont home meds (carvedilol, amlodipine) #HLD-cont home meds (atorvastatin) #Hypothyroidism-cont home med (levothyroxine) #Macular degeneration-receives eye injections weekly DVT ppx: SCDsDiet: cardiacCode: full Quality: Gen Med Crit Care VTE ProphylaxisVTE prophylaxis initiated: yes (mechanical comp device) Advanced Care Plan 65 or OlderDiscussion included: code status (full code) Rigo Skinner 10/27/21 1304:History - Adult longitudinalFamily history:Denies: Diabetes, Heart disease. ObjectiveVS/I OLast Documented: Result Date Time Temp 98.0 10/27 1200 Pulse Ox 94 10/27 1200 Pulse 84 10/27 1200 Resp 40 10/27 1200 O2 Delivery Nasal cannula 10/27 0900 O2 Flow Rate 4 10/27 0900 FiO2 50 10/26 2230 B/P 144/72 10/26 0950 24 hour I O ending at 0700: 10/27 0700 10/26 1900 Intake Total 1393.00 Output Total 1330 Balance 63.00 Intake, IV 1393.00 Output, 30 Drainage Output, Urine 1300 Patient 68.182 kg Weight Weight Standing scale Measurement Method General appearance: frail, Pt is legally blindENT: moist mucosal membranesNeck: R central LineRectal: not indicatedMusculoskeletal: normal inspection, painless range of motion, straight leg raiseneg, Art lineNeuro/WIRE SAWYER: alert, oriented X 3, normal speech, no motor deficitsSkin: abnormal colorWound/incision: Location:R neck w CHRISTIAN drainPsychiatry: normal affect, normal mood Treatment Prophylaxis Treatment ProphylaxisUrinary cath status: day 1Lines: arterial, CVC Diagnosis, Assessment PlanProblem List/A P: 1. S/P carotid endarterectomy 2. Stenosis of right internal carotid artery 3. Diabetes 4. Hypertension 5. Hyperlipidemia 6. Paroxysmal A-fib 7. Hypothyroidism 8. Macular degeneration Code Status/Resusc. DiscussionResuscitation discussion: Discussed with: patient Quality: Gen Med Crit Care Current MedicationsCurrent medication review:I attest that the foregoing medication list in the medical record is true, accurate, and complete to the best of my knowledge. Advanced Care Plan 65 or OlderDiscussed with: patient Attestations Teaching Physician Ildsjywcewb1bn visit w/ resident:I was present with the resident during the history and exam. I discussed the case with the resident and . . . agree with the findings and plan as documented in the resident's note. Very pleasent legally blind pt of Dr christian here for elective R CEA has CHRISTIAN drain. Doing well post op, sitting up in the chair finished lunch at 1300 at 1307 RPT #:[id number] OF REPORTREPnretdjfqlep4756-54-46T10:45:00Z.PDOC2 [id number] for patient eambMYZWVLYLXRJISH1581-04-46O66:00:55 [facility] 2021-10-27 09:35:00 [id number] J+wFZIfm/MAUpO7JmdXISRH3tWenx SeRBTYNjgir9A0ih3o0poVm/KP0ZhxR3973-15-09T78:35:0 [id number] [place] [address] PATIENT NAME: ALBA KAUR ADMIT DATE: 10/26/21ACCOUNT NO: [id number] ROOM NO: Z.SI04 AGE: 76 REPORT TYPE: ELECTROCARDIOGRAM SEX: F ADMITTING PHYSICIAN:Ady Vnetura MD ATTENDING PHYSICIAN:Ady Ventura MD Order:[id number] Reason : PRE-OP Test Date/Time Stamp:FriOct 27 2021 09:35:39Blood Pressure : / mmHGVent. Rate : 076 BPM Atrial Rate : 076 BPM P-R Int : 120 ms QRS Dur : 092 ms QT Int : 438 ms P-R-T Axes : 072 016 058 degrees QTc Int : 492 ms Normal sinus rhythmLow voltage QRSST abnormality, possible digitalis effectProlonged QTAbnormal ECGNo significant change was foundConfirmed by LAURIE CHRISTIAN ([id number]) on 10/27/2021 1:17:01 PM Referred By: Self Referred Confirmed by:LAURIE CHRISTIAN at 1317 PATIENT NAME: ALBA KAUR .[id number] AVAvailable for patient pxhwOZKRQKUQCPGXZY7821-03-50U38:17:45 [facility] 2021-10-27 09:35:00 [id number]jE+4 xU4y308rZFQJCyNAkyUbsy21th9tRLD7606-30-37D65:35:0 [address] [place] [address] PATIENT NAME: ALBA KAUR ADMIT DATE: 10/26/21ACCOUNT NO: [id number] ROOM NO: [facility] AGE: 76 REPORT TYPE: ELECTROCARDIOGRAM SEX: F ADMITTING PHYSICIAN:Ady Ventura MD ATTENDING PHYSICIAN:Ady Ventura MD Order:[id number] Reason : PRE-OP Test Date/Time Stamp:FriOct 27 2021 09:35:39Blood Pressure : / mmHGVent. Rate : 076 BPM Atrial Rate : 076 BPM P-R Int : 120 ms QRS Dur : 092 ms QT Int : 438 ms P-R-T Axes : 072 016 058 degrees QTc Int : 492 ms Normal sinus rhythmLow voltage QRSST abnormality, possible digitalis effectProlonged QTAbnormal ECGNo significant change was foundConfirmed by LAURIE CHRISTIAN ([id number]) on 10/30/2021 6:02:26 AM Referred By: Self Referred Confirmed by:LAURIE CHRISTIAN at 0602 PATIENT NAME: ALBA KAUR .[id number] AVAvailable for patient jtwoCXVIHEAQGARUXP1667-51-09U74:02:47 [facility] 2021-10-27 07:12:00 [id number] tXEYWhCljfV4vHMA+czpu3avCXgOmh21829-82-08D04:12:0 0 [facility] ([facility])Cardiology Progress NoteREPORT#:[id number] REPORT STATUS: SignedDATE:10/27/21 TIME: 711 PATIENT: ALBA KAUR UNIT #: [id number]#: [id number] [address] AGE: 76 SEX: F ATTEND: Ady Ventura MDA AUTHOR: Laurie Christian MD * ALL edits or amendments must be made on the electronic/computer document * SubjectiveChief complaint:S/P R CEAPatient reports:No: complaints, chest pain, palpitations, shortness of breath, swelling. Nursing reports:No: complaints. Objective GeneralVS/I O:24 hour I O ending at 0700: 10/27 0700 10/26 1900 Intake Total 1393.00 Output Total 1330 Balance 63.00 Intake, IV 1393.00 Output, 30 Drainage Output, Urine 1300 Patient 68.182 kg Weight Weight Standing scale Measurement Method Vital Signs: Date Time Temp Pulse Resp B/P B/P Pulse O2 O2 Flow FiO2 Mean Ox Delivery Rate 10/27 1200 98.0 10/27 1200 84 40 94 / 1100 73 15 92 05/ 1000 73 12 99 / 0900 95 Nasal 4 cannula 10/27 0900 77 11 99 / 0800 85 15 97 05/ 0700 98.1 / 0700 74 14 100 05/ 0639 78 10 100 05/ 0630 81 13 100 05/ 0615 78 17 98 05/ 0545 80 13 95 05/ 0530 81 12 94 05/ 0515 83 7 94 05/ 0500 82 15 94 05/ 0445 82 11 94 05/ 0430 82 8 94 05/ 0415 85 16 94 05/07 0400 97.6 05/07 0400 80 15 94 05/07 0345 80 17 95 05/07 0330 80 17 94 05/07 0315 80 16 95 05/07 0300 80 15 95 05/07 0245 80 15 95 05/07 0230 79 5 95 05/07 0215 82 16 95 05/07 0200 81 17 95 05/07 0145 78 15 95 05/07 0130 78 15 94 05/07 0115 79 3 94 05/07 0105 86 11 94 05/07 0100 79 13 95 05/07 0045 77 8 94 05/07 0030 77 11 94 05/07 0015 77 13 93 05/07 0000 97.3 05/07 0000 77 15 93 05/06 2345 80 15 94 05/06 2330 78 12 94 05/06 2315 82 15 92 05/06 2300 77 14 94 05/06 2245 77 14 94 05/06 2230 98.4 05/06 2230 Venti mask 50 05/06 2230 78 3 94 05/06 2215 78 13 93 05/06 2200 76 13 92 05/06 2145 80 14 91 05/06 2130 83 15 91 05/06 2115 75 3 92 05/06 2099 75 14 93 05/06 2044 79 16 92 05/06 0 98 Venti mask 15 50 05/06 2029 80 14 92 05/06 2014 80 18 95 05/06 1999 75 11 96 05/06 1999 96 Simple 6 45 mask PATIENT WEIGHT: Weight (lb): 150Weight (oz): 5.05Weight (kg): 68.182 Medications:Active Meds + DC'd Last 24 HrsGabapentin (NEURONTIN) 100 MG 2100 PO Famotidine (PEPCID) 20 MG BID PO Nitroglycerin (NITRO-BID UD) 1 INCH Q6HR TRANSDERM Sodium Bicarbonate (Sodium Bicarbonate) 50 MEQ NOW ONE IV (DC) Atorvastatin Calcium (LIPITOR) 5 MG BEDTIME PO Famotidine (PEPCID) 20 MG Q12HR IV (DC) Insulin Human Lispro (HumaLOG) MEDIUM DOSE SLIDING SCALE AC HS SUBQ Metformin HCl (GLUCOPHAGE) 500 MG C BK DIN PO Mupirocin (BACTROBAN NASAL - ADULT ICU) 1 APPLIC BID NASAL Dextrose/Water (DEXTROSE 50% IN WATER) 12.5 GM ASDIR PRN IV Dextrose/Water (DEXTROSE 50% IN WATER) 25 GM ASDIR PRN IV Cefazolin Sodium (ANCEF) 1 GM Q8H IV (DC) Levothyroxine Sodium (Synthroid) 88 MCG DAILY@0600 PO Amiodarone HCl (CORDARONE) 200 MG DAILY PO Amlodipine Besylate (NORVASC TAB) 2.5 MG DAILY PO Aspirin (CHILDREN'S ASPIRIN) 81 MG DAILY PO Carvedilol (COREG) 6.25 MG BID MEALS PO Clopidogrel Bisulfate (PLAVIX) 75 MG DAILY PO Potassium Chloride/Dextrose/Sod Cl (DEXTROSE 5%-1/2NS-KCL 20MEQ) 1,000 ML Q12H IV Benzocaine/Menthol (Cepacol Sore Throat Lozenge) 1 TAB Q2H PRN PRN MM (CKD) Bisacodyl (BISACODYL SUPP) 10 MG ASDIR PRN RECTAL Calcium Gluconate/Sodium Chloride (Calcium Gluconate 1 GM/100ML NS) 100 ML ASDIR PRN IV Hydralazine HCl (APRESOLINE) 10 MG Q8H PRN PRN IV Hydrocodone Bitart/Acetaminophen (NORCO 5/325 TABLET (C-II)) 1 TAB Q4H PRN PRN PO Hydrocodone Bitart/Acetaminophen (NORCO 5/325 TABLET (C-II)) 2 TAB Q4H PRN PRN PO Nicardipine HCl (CARDENE I.V.) 25 MG ASDIR PRN IV (CKD) Sodium Chloride (SODIUM CHLORIDE 0.9%) 250 MLOndansetron HCl (ZOFRAN) 4 MG Q8H PRN PRN IV Phenol (CHLORASEPTIC) 5 SPRAY Q2H PRN PRN MM Potassium Chloride (KLOR-CON M20) 20 MEQ ASDIR PRN PO Potassium Chloride (Potassium Chloride) 50 ML ASDIR PRN IV Nicardipine HCl (CARDENE I.V.) 25 MG ASDIR PRN IV (DC) Sodium Chloride (SODIUM CHLORIDE 0.9%) 250 MLGlycopyrrolate (ROBINUL IJ) 0 .STK-MED ONE .ROUTE (DC) Protamine Sulfate (PROTAMINE SULFATE) 0 .STK-MED ONE .ROUTE (DC) Dexamethasone Sodium Phosphate (DECADRON 4MG IJ) 0 .STK-MED ONE .ROUTE (DC) Ondansetron HCl (ZOFRAN) 0 .STK-MED ONE .ROUTE (DC) Gentamicin Sulfate/Sodium Chloride (GENTAMICIN SULFATE IN NS) 50 ML .STK-MEDONE IV (DC) Fentanyl Citrate (SUBLIMAZE (C-II)) 0 .STK-MED ONE .ROUTE (DC) Fentanyl Citrate (SUBLIMAZE (C-II)) 0 .STK-MED ONE .ROUTE (DC) Rocuronium [place] (ZEMURON) 0 .STK-MED ONE .ROUTE (DC) Protamine Sulfate (PROTAMINE SULFATE) 0 .STK-MED ONE .ROUTE (DC) Lidocaine HCl (XYLOCAINE 1%) 5 ML .STK-MED ONE IV (DC) Fentanyl Citrate (SUBLIMAZE (C-II)) 0 .STK-MED ONE .ROUTE (DC) Lidocaine HCl (XYLOCAINE 1%) 5 ML .STK-MED ONE IV (DC) Nicardipine HCl (CARDENE 25MG/250ML PREMIX) 250 ML .STK-MED ONE IV (DC) Phenylephrine HCl (LOLI-SYNEPHRINE/NS 10MG/100ML) 100 ML .STK-MED ONE IV (DC) Propofol (DIPRIVAN) 0 .STK-MED ONE .ROUTE (DC) Succinylcholine Chloride (Quelicin) 0 .STK-MED ONE .ROUTE (DC) Lidocaine HCl (XYLOCAINE 1%) 5 ML .STK-MED ONE IV (DC) Gentamicin Sulfate (GARAMYCIN) 0 .STK-MED ONE .ROUTE (DC) Heparin Sodium/Sodium Chloride (HEPARIN 1000 UNITS/NS 500ML) 500 ML .STK-MEDONE IV (DC) Thrombin (RECOTHROM) 0 .STK-MED ONE .ROUTE (DC) Cefazolin Sodium (ANCEF) 0 .STK-MED ONE .ROUTE (DC) Cefazolin Sodium (ANCEF) 1 GM ONCALL IV (DC) Sodium Chloride (SODIUM CHLORIDE 0.9%) 10 ML Post-op: day 1Status post:R CEANutrition assessment:The data set between the solid lines has been imported from the dietitian's assessment. Any exceptions have been noted under Provider comments. BMI Calculated: 22.2Nutrition related diagnosis: Nutrition diagnosis details: Nutrition problem: Nutrition etiology: Nutrition signs and symptoms: Nutrition prescription: Dietitian name: Assessment completed: Provider comments on imported dietitian assessment: Physical ExamGeneral appearance: alert, awake, oriented, no acute distress, pleasant, conversational, mental status normal, no respiratory distressHead/Eyes: atraumatic, normocephalic, PERRLAENT: moist mucosal membranesNeck: carotid bruit (R CEA), full range of motion, no JVDCardiovascular: CV assessment: regular rate and rhythm, BP pulses = bilaterally Murmur assessment:I/ SEMRespiratory: decreased breath sounds, on oxygen, no distressAbdomen: soft, non-tender, no mass/organomegalyLower extremity: LE assessment: abnormal peripheral pulse, no edemaMusculoskeletal: full range of motionNeuro/WIRE SAWYER: alert, oriented X 3, CN II-XII intact, no motor deficitsWound/incision: Location:R CEA Site condition: dressing clean dry, no drainagePsychiatry: normal affect, normal judgment/insight, normal mood, no hallucinations ResultsFindings/Data:Laboratory Tests 10/26 10/26 10/26 [id number] 1958 Blood Gas Puncture Site AL AL AL ABG pH (7.35 - 7.45 mmHg) 7.33 L 7.29 *L 7.26 *L ABG pCO2 (35.0 - 45.0 mmHg) 49.7 H 46.2 H 48.4 H ABG pO2 (80.0 - 100.0 mmol/L) 63.5 L 64.6 L 79.1 L ABG HCO3 (20.0 - 26.0 mmol/L) 25.4 21.5 21.4 ABG O2 Saturation (95.0 - 100.0 %) 90.5 L 90.1 L 93.9 L ABG Base Excess (-3.0 - 3.0 mmol/L) -1.2 -5.3 L -5.9 L Tom Test (CHECK) NA NA NA Temperature (37 C) 37.0 37.0 37.0 O2 Delivery Device VENTIMSK N/C SMASK Liter Flow (L/MIN) 6 FiO2 (%) 50 36 42 Laboratory Tests 10/27 10/27 10/27 10/26 10/26 1123 0752 0430 2100 1948 Chemistry Sodium (137 - 145 MMOL/L) 136 L 141 Potassium (3.5 - 5.1 MMOL/L) 4.3 4.0 Chloride (98 - 107 MMOL/L) 103 107 Carbon Dioxide (22 - 30 MMOL/L) 27 26 Anion Gap (14 - 24 MMOL/L) 10 L 12 L BUN (7 - 17 MG/DL) 11 12 Creatinine (0.52 - 1.04 MG/DL) 0.60 0.60 Glomerular Filtr Rate > 60 > 60 Glucose (74 - 106 MG/DL) 214 H 199 H POC Glucose (60 - 99 MG/DL) 147 H 214 H 223 H Calcium (8.4 - 10.2 MG/DL) 8.3 L 8.6 Magnesium (1.6 - 2.3 MG/DL) 1.6 1.6 Laboratory Tests 10/27 Hematology WBC (3.8 - 9.8 K/MM3) 11.5 H 14.6 H RBC (3.58 - 4.97 M/MM3) 3.60 3.71 Hgb (11.2 - 14.9 G/DL) 10.6 L 11.1 L Hct (33.2 - 43.5 %) 32.5 L 34.2 MCV (80.7 - 99.1 fL) 90 92 MCH (27.0 - 34.1 pg) 29.4 29.9 MCHC (32.2 - 35.7 %) 32.6 32.5 RDW (12.1 - 15.2 %) 13.2 13.2 Plt Count (129 - 368 K/MM3) 192 191 MPV (7.4 - 10.4 fl) 9.9 10.5 H Neut % (Auto) (43 - 75 %) 91.8 H 73.1 Lymph % (Auto) (14 - 44 %) 6.3 L 19.3 [place] % (Auto) (4 - 13 %) 1.6 L 6.3 Eos % (Auto) (0 - 6 %) 0.0 0.5 Baso % (Auto) (0 - 2 %) 0 0.3 Neut # (Auto) (2.0 - 7.6 K/mm3) 10.57 H 10.64 H Lymph # (Auto) (1.0 - 3.8 K/mm3) 0.72 L 2.82 [place] # (Auto) (0.1 - 0.8 K/mm3) 0.18 0.92 H Eos # (Auto) (0.0 - 0.2 K/mm3) 0.00 0.08 Baso # (Auto) (0.0 - 0.2 K/mm3) 0 0.04 Immature Gran % (0.0 - 2.0 %) 0.3 0.5 Nucleated RBC % (0 - 1.0 %) 0.0 0.0 Nucleated RBCs # (Man) (0.0 - 0.1 K/mm3) 0.00 0.00 Laboratory Tests 10/27 10/26 0430 1949 Chemistry Magnesium (1.6 - 2.3 MG/DL) 1.6 1.6 Radiology data:Recent Impressions:RADIOLOGY - XR CHEST 1V 10/26 193 Report Impression - Status: SIGNED Entered: 10/26/20211953 Impression: 1. No radiographic evidence of acute cardiopulmonary disease.2. Right subclavian central venous catheter tip projects over the midvena cava.3. Right neck surgery with drain in place. Impression By: Jose De Jesus Zhao M.D.RADIOLOGY - XR CHEST 1V 10/27 0507 Report Impression - Status: SIGNED Entered: 10/27/2021 0654 Impression: 1. Low lung volumes with mild bronchovascular crowding. Otherwise, noradiographic evidence of acute cardiopulmonary disease. Impression By: [email or web address] - Gabriela Tolentino MD Results: labs reviewed, vital signs reviewed, vital signs stable, EKG personallyreviewed, rhythm personally rev'd, x-ray personally reviewed, current med profile rev'dEKG Interpretation: normal sinus rhythmTelemetry Interpretation:SR Diagnosis, Assessment PlanProblem List/A P: 1. Stenosis of right internal carotid artery 2. Diabetes 3. Hypertension 4. Hyperlipidemia 5. Paroxysmal A-fib 6. Hypothyroidism 7. Macular degeneration 8. S/P carotid endarterectomy Orders: Procedure Date/time Status EKG 10/28 050 Active EKG 10/27 712 Active Consultants: cardiovascular surgery, critical/intensivistCode status: full codePlan discussed with: patient, family, consultants, patient care team, nurse Free Text DxA P NotesFree Text DxA P Notes:IMPRESSION: COD, S/P R CEA CAD ABD PAD PAD HTN HLP DM Doing well PLAN: Continue current Med Rx Later ABD evaluation for stent. Discussed in detail. at 1311 RPT #:[id number] OF REPORTPRProgress uwpa5074-19-41Y80:12:00Z.HOEE19258922-5343CVLffae able for patient ucsqCNTLHGYXGABRVW7629-72-51V39:12:28 [facility] 2021-10-27 05:25:00 [id number] vQlsOcVQk4h3FCrZ8CNMQ+qlg+UOx nQas+4Eq8Wn9GQ0nCMt+J0jX+/l8pTP7154-47-42M66:25:0 0 [facility] ([facility])Critical Care Progress NoteREPORT#:[id number] REPORT STATUS: SignedDATE:10/27/21 TIME: 524 PATIENT: ALBA KAUR UNIT #: [id number]#: [id number] [address] AGE: 76 SEX: F ATTEND: Ady Ventura AUTHOR: Sesar Steele MD * ALL edits or amendments must be made on the electronic/computer document * SubjectiveComments:Patient seen and examined this morning. No major overnight events per nursing. Patient without any major complaints. This morning she is wanting to ambulate. Denies any chest pain shortness of breath nausea vomiting visual changes. CHRISTIAN drain serosanguineous fluid. Objective GeneralVS/I OLast Documented: Result Date Time Pulse Ox 94 10/27 104 Pulse 86 10/27 104 Resp 11 10/27 104 Temp 36.9 10/26 2229 FiO2 50 10/26 2229 O2 Delivery Venti mask 10/26 2229 O2 Flow Rate 15 10/26 2040 B/P 144/72 10/26 0950 24 hour I O ending at 0700: 10/27 0700 10/26 1900 Intake Total Output Total Balance Patient 68.182 kg Weight Weight Standing scale Measurement Method PATIENT WEIGHT: Weight (lb): 150Weight (oz): 5.05Weight (kg): 68.182 Medications:Active Meds + DC'd Last 24 HrsGabapentin (NEURONTIN) 100 MG 2100 PO Sodium Bicarbonate (Sodium Bicarbonate) 50 MEQ NOW ONE IV (DC) Atorvastatin Calcium (LIPITOR) 5 MG BEDTIME PO Famotidine (PEPCID) 20 MG Q12HR IV Insulin Human Lispro (HumaLOG) MEDIUM DOSE SLIDING SCALE AC HS SUBQ Metformin HCl (GLUCOPHAGE) 500 MG C BK DIN PO Mupirocin (BACTROBAN NASAL - ADULT ICU) 1 APPLIC BID NASAL Dextrose/Water (DEXTROSE 50% IN WATER) 12.5 GM ASDIR PRN IV Dextrose/Water (DEXTROSE 50% IN WATER) 25 GM ASDIR PRN IV Cefazolin Sodium (ANCEF) 1 GM Q8H IV Levothyroxine Sodium (Synthroid) 88 MCG DAILY@0600 PO Amiodarone HCl (CORDARONE) 200 MG DAILY PO Amlodipine Besylate (NORVASC TAB) 2.5 MG DAILY PO Aspirin (CHILDREN'S ASPIRIN) 81 MG DAILY PO Carvedilol (COREG) 6.25 MG BID MEALS PO Clopidogrel Bisulfate (PLAVIX) 75 MG DAILY PO Potassium Chloride/Dextrose/Sod Cl (DEXTROSE 5%-1/2NS-KCL 20MEQ) 1,000 ML Q12H IV Benzocaine/Menthol (Cepacol Sore Throat Lozenge) 1 TAB Q2H PRN PRN MM (CKD) Bisacodyl (BISACODYL SUPP) 10 MG ASDIR PRN RECTAL Calcium Gluconate/Sodium Chloride (Calcium Gluconate 1 GM/100ML NS) 100 ML ASDIR PRN IV Hydralazine HCl (APRESOLINE) 10 MG Q8H PRN PRN IV Hydrocodone Bitart/Acetaminophen (NORCO 5/325 TABLET (C-II)) 1 TAB Q4H PRN PRN PO Hydrocodone Bitart/Acetaminophen (NORCO 5/325 TABLET (C-II)) 2 TAB Q4H PRN PRN PO Nicardipine HCl (CARDENE I.V.) 25 MG ASDIR PRN IV (CKD) Sodium Chloride (SODIUM CHLORIDE 0.9%) 250 MLOndansetron HCl (ZOFRAN) 4 MG Q8H PRN PRN IV Phenol (CHLORASEPTIC) 5 SPRAY Q2H PRN PRN MM Potassium Chloride (KLOR-CON M20) 20 MEQ ASDIR PRN PO Potassium Chloride (Potassium Chloride) 50 ML ASDIR PRN IV Nicardipine HCl (CARDENE I.V.) 25 MG ASDIR PRN IV (DC) Sodium Chloride (SODIUM CHLORIDE 0.9%) 250 MLGlycopyrrolate (ROBINUL IJ) 0 .STK-MED ONE .ROUTE (DC) Protamine Sulfate (PROTAMINE SULFATE) 0 .STK-MED ONE .ROUTE (DC) Dexamethasone Sodium Phosphate (DECADRON 4MG IJ) 0 .STK-MED ONE .ROUTE (DC) Ondansetron HCl (ZOFRAN) 0 .STK-MED ONE .ROUTE (DC) Gentamicin Sulfate/Sodium Chloride (GENTAMICIN SULFATE IN NS) 50 ML .STK-MEDONE IV (DC) Fentanyl Citrate (SUBLIMAZE (C-II)) 0 .STK-MED ONE .ROUTE (DC) Fentanyl Citrate (SUBLIMAZE (C-II)) 0 .STK-MED ONE .ROUTE (DC) Rocuronium [place] (ZEMURON) 0 .STK-MED ONE .ROUTE (DC) Protamine Sulfate (PROTAMINE SULFATE) 0 .STK-MED ONE .ROUTE (DC) Lidocaine HCl (XYLOCAINE 1%) 5 ML .STK-MED ONE IV (DC) Fentanyl Citrate (SUBLIMAZE (C-II)) 0 .STK-MED ONE .ROUTE (DC) Lidocaine HCl (XYLOCAINE 1%) 5 ML .STK-MED ONE IV (DC) Nicardipine HCl (CARDENE 25MG/250ML PREMIX) 250 ML .STK-MED ONE IV (DC) Phenylephrine HCl (LOLI-SYNEPHRINE/NS 10MG/100ML) 100 ML .STK-MED ONE IV (DC) Propofol (DIPRIVAN) 0 .STK-MED ONE .ROUTE (DC) Succinylcholine Chloride (Quelicin) 0 .STK-MED ONE .ROUTE (DC) Lidocaine HCl (XYLOCAINE 1%) 5 ML .STK-MED ONE IV (DC) Gentamicin Sulfate (GARAMYCIN) 0 .STK-MED ONE .ROUTE (DC) Heparin Sodium/Sodium Chloride (HEPARIN 1000 UNITS/NS 500ML) 500 ML .STK-MEDONE IV (DC) Thrombin (RECOTHROM) 0 .STK-MED ONE .ROUTE (DC) Cefazolin Sodium (ANCEF) 0 .STK-MED ONE .ROUTE (DC) Cefazolin Sodium (ANCEF) 1 GM ONCALL IV (DC) Sodium Chloride (SODIUM CHLORIDE 0.9%) 10 ML Physical ExamGeneral appearance: alert, awake, oriented, no acute distress, pleasant, conversational, mental status normalHead/eyes: clear cornea, PERRLAENT: moist mucosal membranesNeck: tenderness, no masses or swellingCardiovascular: regular rate and rhythm, normal S1/R4Tjhrktlvxil: decreased breath sounds, aerating well, symmetric expansionAbdomen: soft, non-tenderExtremities: moves allMusculoskeletal normal inspectionSkin: dry, intact, normal colorPsychiatry: normal affect, normal judgment/insight, normal mood ResultsFindings/data:Laboratory Tests 10/26 Blood Gas Puncture Site AL AL AL ABG pH (7.35 - 7.45 mmHg) 7.33 L 7.29 *L 7.26 *L ABG pCO2 (35.0 - 45.0 mmHg) 49.7 H 46.2 H 48.4 H ABG pO2 (80.0 - 100.0 mmol/L) 63.5 L 64.6 L 79.1 L ABG HCO3 (20.0 - 26.0 mmol/L) 25.4 21.5 21.4 ABG O2 Saturation (95.0 - 100.0 %) 90.5 L 90.1 L 93.9 L ABG Base Excess (-3.0 - 3.0 mmol/L) -1.2 -5.3 L -5.9 L Tom Test (CHECK) NA NA NA Temperature (37 C) 37.0 37.0 37.0 O2 Delivery Device VENTIMSK N/C SMASK Liter Flow (L/MIN) 6 FiO2 (%) 50 36 42 Laboratory Tests 10/27 1049 Chemistry Sodium (137 - 145 MMOL/L) 136 L 141 139 Potassium (3.5 - 5.1 MMOL/L) 4.3 4.0 4.1 Chloride (98 - 107 MMOL/L) 103 107 106 Carbon Dioxide (22 - 30 MMOL/L) 27 26 27 Anion Gap (14 - 24 MMOL/L) 10 L 12 L BUN (7 - 17 MG/DL) 11 12 14 Creatinine (0.52 - 1.04 MG/DL) 0.60 0.60 0.70 Glomerular Filtr Rate > 60 > 60 > 60 Glucose (74 - 106 MG/DL) 214 H 199 H 137 H POC Glucose (60 - 99 MG/DL) 223 H Calcium (8.4 - 10.2 MG/DL) 8.3 L 8.6 9.3 Magnesium (1.6 - 2.3 MG/DL) 1.6 1.6 Laboratory Tests 10/26 1048 Coagulation INR (0.86 - 1.14) 1.0 APTT (26.2 - 35.4 SECONDS) 31.7 PT Patient/Control Mix (9.4 - 12.7 SECONDS) 11.0 Laboratory Tests 10/27 1049 Hematology WBC (3.8 - 9.8 K/MM3) 11.5 H 14.6 H 8.3 RBC (3.58 - 4.97 M/MM3) 3.60 3.71 4.09 Hgb (11.2 - 14.9 G/DL) 10.6 L 11.1 L 12.1 Hct (33.2 - 43.5 %) 32.5 L 34.2 37.1 MCV (80.7 - 99.1 fL) 90 92 91 MCH (27.0 - 34.1 pg) 29.4 29.9 29.6 MCHC (32.2 - 35.7 %) 32.6 32.5 32.6 RDW (12.1 - 15.2 %) 13.2 13.2 13.2 Plt Count (129 - 368 K/MM3) 192 191 231 MPV (7.4 - 10.4 fl) 9.9 10.5 H 10.3 Neut % (Auto) (43 - 75 %) 91.8 H 73.1 69.3 Lymph % (Auto) (14 - 44 %) 6.3 L 19.3 19.9 [place] % (Auto) (4 - 13 %) 1.6 L 6.3 9.2 Eos % (Auto) (0 - 6 %) 0.0 0.5 0.7 Baso % (Auto) (0 - 2 %) 0 0.3 0.5 Neut # (Auto) (2.0 - 7.6 K/mm3) 10.57 H 10.64 H 5.77 Lymph # (Auto) (1.0 - 3.8 K/mm3) 0.72 L 2.82 1.66 [place] # (Auto) (0.1 - 0.8 K/mm3) 0.18 0.92 H 0.77 Eos # (Auto) (0.0 - 0.2 K/mm3) 0.00 0.08 0.06 Baso # (Auto) (0.0 - 0.2 K/mm3) 0 0.04 0.04 Immature Gran % (0.0 - 2.0 %) 0.3 0.5 0.4 Nucleated RBC % (0 - 1.0 %) 0.0 0.0 0.0 Nucleated RBCs # (Man) (0.0 - 0.1 K/mm3) 0.00 0.00 0.00 Laboratory Tests 10/26 1048 Serology HIV Ag/Ab Combo Qual (NONREACTIVE) AB/AG NON REACTIVE Laboratory Tests 10/27/21 0430:[Embedded Image Not Available] 10/26/219:[Embedded Image Not Available] 10/26/21 1049:[Embedded Image Not Available] Radiology dataRecent Impressions:RADIOLOGY - XR CHEST 1V 10/26 1929 Report Impression - Status: SIGNED Entered: 10/26/20211953 Impression: 1. No radiographic evidence of acute cardiopulmonary disease.2. Right subclavian central venous catheter tip projects over the midvena cava.3. Right neck surgery with drain in place. Impression By: Jose De Jesus Zhao M.D. Results: labs reviewed, vital signs reviewed, vital signs stable Diagnosis, Assessment PlanFree text A P:Level of care: ICUCODE STATUS: Full code Clinical impression/recommendation 1. Status post right carotid endarterectomy with Hemashield patch arterioplasty -POD#01 -Dr. Ventura following patient from CVT surgery -Complete surgical prophylactic protocol. -If febrile, obtain blood cx x 2 sets, UA w/cx, sputum cx and CXR 2. Diabetes mellitus -Insulin sliding scale -OK to resume Metformin in 24 hours pending normal Cr -ADA diet once ok per CVT surgery 3. Hypertension -Telemetry monitoring -Hydralazine as needed 4. Hyperlipidemia -Statins -Per primary medicine team 5. Physical decompensation -PT OT once okayed by CVT surgery -OOB as tolerated DVT prophylaxis: SCDsGIB prophylaxis: Pepcid Critical care medicine will sign off at this time. If any questions or concernsdo arise please feel free to contact us again. Follow-up time 35 minutes at 0726 RPT #:[id number] OF REPORTPRProgress [id number]:25:00Z.[id number] able for patient ialzPQTKQQFFZZXEGK6009-81-67N25:26:30 [facility] 2021-10-26 22:01:00 [id number] Cm0kgALpmR8nGassBpluXLwJSobhK JgX1aA5as40PCRSeoNqGAdnqPVSRDhM7096-50-10Y40:01:0 0 [facility] ([facility] [place])Critical Care Consult NoteREPORT#:[id number] REPORT STATUS: SignedDATE:10/26/21 TIME: 2200 PATIENT: ALBA KAUR UNIT #: [id number]#: [id number] [address] AGE: 76 SEX: F ATTEND: Ady Ventura AUTHOR: Sesar Steele MD * ALL edits or amendments must be made on the electronic/computer document * History of Present Illness HPIRequesting clinician: Dr. Nieves for consult:Postoperative pain management PCP:PCP: Skinny Cantu MD HPI:Mrs. Temple is a 76-year-old woman with a past medical history of hypertension, hyperlipidemia, and diabetes mellitus, paroxysmal atrial fibrillation, and right internal carotid artery stenosis, who was admitted to the intensive care unit status post right carotid endarterectomy with Hemashieldpatch arterioplasty. Critical care medicine was consulted for assistance in themanagement of patient's postoperative pain management and the medical comorbidities. Patient without any chest complaints, dyspnea, headache, visual changes, extremity weakness, or severe pain. Patient remains afebrile. History - Adult longitudinalAllergies:Coded Allergies:No Known Allergies (07/10/12) Review of Systems ROSAdditional notes:Per HPI Objective Physical ExamVS/I O:Last Documented: Result Date Time Pulse Ox 100 05/06 0950 B/P 144/72 05/06 0950 O2 Delivery Room air 05/06 0950 Temp 36.9 05/06 0950 Pulse 72 05/06 0950 Resp 18 05/06 0950 Patient Weight and BMI Weight (kg): 68.182 BMI: 22.2 Medications:Active Meds + DC'd Last 24 HrsGabapentin (NEURONTIN) 100 MG 2100 PO Sodium Bicarbonate (Sodium Bicarbonate) 50 MEQ NOW ONE IV (DC) Atorvastatin Calcium (LIPITOR) 5 MG BEDTIME PO Famotidine (PEPCID) 20 MG Q12HR IV Insulin Human Lispro (HumaLOG) MEDIUM DOSE SLIDING SCALE AC HS SUBQ Metformin HCl (GLUCOPHAGE) 500 MG C BK DIN PO Mupirocin (BACTROBAN NASAL - ADULT ICU) 1 APPLIC BID NASAL Dextrose/Water (DEXTROSE 50% IN WATER) 12.5 GM ASDIR PRN IV Dextrose/Water (DEXTROSE 50% IN WATER) 25 GM ASDIR PRN IV Cefazolin Sodium (ANCEF) 1 GM Q8H IV Levothyroxine Sodium (Synthroid) 88 MCG DAILY@0600 PO Amiodarone HCl (CORDARONE) 200 MG DAILY PO Amlodipine Besylate (NORVASC TAB) 2.5 MG DAILY PO Aspirin (CHILDREN'S ASPIRIN) 81 MG DAILY PO Carvedilol (COREG) 6.25 MG BID MEALS PO Clopidogrel Bisulfate (PLAVIX) 75 MG DAILY PO Potassium Chloride/Dextrose/Sod Cl (DEXTROSE 5%-1/2NS-KCL 20MEQ) 1,000 ML Q12H IV Benzocaine/Menthol (Cepacol Sore Throat Lozenge) 1 TAB Q2H PRN PRN MM (CKD) Bisacodyl (BISACODYL SUPP) 10 MG ASDIR PRN RECTAL Calcium Gluconate/Sodium Chloride (Calcium Gluconate 1 GM/100ML NS) 100 ML ASDIR PRN IV Hydralazine HCl (APRESOLINE) 10 MG Q8H PRN PRN IV Hydrocodone Bitart/Acetaminophen (NORCO 5/325 TABLET (C-II)) 1 TAB Q4H PRN PRN PO Hydrocodone Bitart/Acetaminophen (NORCO 5/325 TABLET (C-II)) 2 TAB Q4H PRN PRN PO Nicardipine HCl (CARDENE I.V.) 25 MG ASDIR PRN IV (CKD) Sodium Chloride (SODIUM CHLORIDE 0.9%) 250 MLOndansetron HCl (ZOFRAN) 4 MG Q8H PRN PRN IV Phenol (CHLORASEPTIC) 5 SPRAY Q2H PRN PRN MM Potassium Chloride (KLOR-CON M20) 20 MEQ ASDIR PRN PO Potassium Chloride (Potassium Chloride) 50 ML ASDIR PRN IV Nicardipine HCl (CARDENE I.V.) 25 MG ASDIR PRN IV (DC) Sodium Chloride (SODIUM CHLORIDE 0.9%) 250 MLGlycopyrrolate (ROBINUL IJ) 0 .STK-MED ONE .ROUTE (DC) Protamine Sulfate (PROTAMINE SULFATE) 0 .STK-MED ONE .ROUTE (DC) Dexamethasone Sodium Phosphate (DECADRON 4MG IJ) 0 .STK-MED ONE .ROUTE (DC) Ondansetron HCl (ZOFRAN) 0 .STK-MED ONE .ROUTE (DC) Gentamicin Sulfate/Sodium Chloride (GENTAMICIN SULFATE IN NS) 50 ML .STK-MEDONE IV (DC) Fentanyl Citrate (SUBLIMAZE (C-II)) 0 .STK-MED ONE .ROUTE (DC) Fentanyl Citrate (SUBLIMAZE (C-II)) 0 .STK-MED ONE .ROUTE (DC) Rocuronium [place] (ZEMURON) 0 .STK-MED ONE .ROUTE (DC) Protamine Sulfate (PROTAMINE SULFATE) 0 .STK-MED ONE .ROUTE (DC) Lidocaine HCl (XYLOCAINE 1%) 5 ML .STK-MED ONE IV (DC) Fentanyl Citrate (SUBLIMAZE (C-II)) 0 .STK-MED ONE .ROUTE (DC) Lidocaine HCl (XYLOCAINE 1%) 5 ML .STK-MED ONE IV (DC) Nicardipine HCl (CARDENE 25MG/250ML PREMIX) 250 ML .STK-MED ONE IV (DC) Phenylephrine HCl (LOLI-SYNEPHRINE/NS 10MG/100ML) 100 ML .STK-MED ONE IV (DC) Propofol (DIPRIVAN) 0 .STK-MED ONE .ROUTE (DC) Succinylcholine Chloride (Quelicin) 0 .STK-MED ONE .ROUTE (DC) Lidocaine HCl (XYLOCAINE 1%) 5 ML .STK-MED ONE IV (DC) Gentamicin Sulfate (GARAMYCIN) 0 .STK-MED ONE .ROUTE (DC) Heparin Sodium/Sodium Chloride (HEPARIN 1000 UNITS/NS 500ML) 500 ML .STK-MEDONE IV (DC) Thrombin (RECOTHROM) 0 .STK-MED ONE .ROUTE (DC) Cefazolin Sodium (ANCEF) 0 .STK-MED ONE .ROUTE (DC) Cefazolin Sodium (ANCEF) 1 GM ONCALL IV (DC) Sodium Chloride (SODIUM CHLORIDE 0.9%) 10 ML General appearance: frail, alert, awake, orientedENT: moist mucosal membranesNeck: tenderness, no masses or swellingCardiovascular: regular rate and rhythm, normal S1/N3Ozpgidkcnae: decreased breath sounds, aerating well, symmetric expansionAbdomen: soft, non-tenderExtremities: moves allMusculoskeletal: normal inspectionSkin: dry, intact, normal colorPsychiatry: normal affect, normal judgment/insight ResultsFindings/Data:Laboratory Tests 10/26/21 194:[Embedded Image Not Available] 10/26/21 1049:[Embedded Image Not Available]Laboratory Tests 10/26 1958 Blood Gas Puncture Site AL ABG pH (7.35 - 7.45 mmHg) 7.26 *L ABG pCO2 (35.0 - 45.0 mmHg) 48.4 H ABG pO2 (80.0 - 100.0 mmol/L) 79.1 L ABG HCO3 (20.0 - 26.0 mmol/L) 21.4 ABG O2 Saturation (95.0 - 100.0 %) 93.9 L ABG Base Excess (-3.0 - 3.0 mmol/L) -5.9 L Tom Test (CHECK) NA Temperature (37 C) 37.0 O2 Delivery Device SMASK Liter Flow (L/MIN) 6 FiO2 (%) 42 Laboratory Tests 10/26 1049 Chemistry Sodium (137 - 145 MMOL/L) 141 139 Potassium (3.5 - 5.1 MMOL/L) 4.0 4.1 Chloride (98 - 107 MMOL/L) 107 106 Carbon Dioxide (22 - 30 MMOL/L) 26 27 Anion Gap (14 - 24 MMOL/L) 12 L BUN (7 - 17 MG/DL) 12 14 Creatinine (0.52 - 1.04 MG/DL) 0.60 0.70 Glomerular Filtr Rate > 60 > 60 Glucose (74 - 106 MG/DL) 199 H 137 H POC Glucose (60 - 99 MG/DL) 223 H Calcium (8.4 - 10.2 MG/DL) 8.6 9.3 Magnesium (1.6 - 2.3 MG/DL) 1.6 Laboratory Tests 10/26 1049 Coagulation INR (0.86 - 1.14) 1.0 APTT (26.2 - 35.4 SECONDS) 31.7 PT Patient/Control Mix (9.4 - 12.7 SECONDS) 11.0 Laboratory Tests 10/26 1049 Hematology WBC (3.8 - 9.8 K/MM3) 14.6 H 8.3 RBC (3.58 - 4.97 M/MM3) 3.71 4.09 Hgb (11.2 - 14.9 G/DL) 11.1 L 12.1 Hct (33.2 - 43.5 %) 34.2 37.1 MCV (80.7 - 99.1 fL) 92 91 MCH (27.0 - 34.1 pg) 29.9 29.6 MCHC (32.2 - 35.7 %) 32.5 32.6 RDW (12.1 - 15.2 %) 13.2 13.2 Plt Count (129 - 368 K/MM3) 191 231 MPV (7.4 - 10.4 fl) 10.5 H 10.3 Neut % (Auto) (43 - 75 %) 73.1 69.3 Lymph % (Auto) (14 - 44 %) 19.3 19.9 [place] % (Auto) (4 - 13 %) 6.3 9.2 Eos % (Auto) (0 - 6 %) 0.5 0.7 Baso % (Auto) (0 - 2 %) 0.3 0.5 Neut # (Auto) (2.0 - 7.6 K/mm3) 10.64 H 5.77 Lymph # (Auto) (1.0 - 3.8 K/mm3) 2.82 1.66 [place] # (Auto) (0.1 - 0.8 K/mm3) 0.92 H 0.77 Eos # (Auto) (0.0 - 0.2 K/mm3) 0.08 0.06 Baso # (Auto) (0.0 - 0.2 K/mm3) 0.04 0.04 Immature Gran % (0.0 - 2.0 %) 0.5 0.4 Nucleated RBC % (0 - 1.0 %) 0.0 0.0 Nucleated RBCs # (Man) (0.0 - 0.1 K/mm3) 0.00 0.00 Laboratory Tests 10/26 1049 Serology HIV Ag/Ab Combo Qual (NONREACTIVE) AB/AG NON REACTIVE Radiology data:Recent Impressions:RADIOLOGY - XR CHEST 1V 10/26 1929 Report Impression - Status: SIGNED Entered: 10/26/20211953 Impression: 1. No radiographic evidence of acute cardiopulmonary disease.2. Right subclavian central venous catheter tip projects over the midvena cava.3. Right neck surgery with drain in place. Impression By: Jose De Jesus - Jack Zhao M.D. Diagnosis, Assessment PlanFree text DxA P:Level of care: ICUCODE STATUS: Full code Clinical impression/recommendation 1. Status post right carotid endarterectomy with Hemashield patch arterioplasty -POD#0 -Dr. Ventura following patient from CVT surgery -Cefazolin 1gm q8h x 24h -Complete surgical prophylactic protocol. -If febrile, obtain blood cx x 2 sets, UA w/cx, sputum cx and CXR 2. Diabetes mellitus -Insulin sliding scale -OK to resume Metformin in 48 hours pening normal Cr -ADA diet once ok per CVT surgery 3. Hypertension -Telemetry monitoring -Hydralazine as needed 4. Hyperlipidemia -Statins -Per primary medicine team 5. Physical decompensation -PT OT once okayed by CVT surgery -OOB as tolerated DVT prophylaxis: SCDsGIB prophylaxis: Pepcid Critical Care Time: 55 minutes This time excludes separately billable procedures or tests and no overlap with resident time. I personally performed 55 minutes of critical care time in treatment of this patient. This includes patient management, time at bedside, time reviewing test,labs, appropriate images and studies, documentation, patient /family member and patient care coordination. Patient care discussed during sign out endorsement with ICU team and Dr. Guerrero, Handle Rounder Operator. at 0525 RPT #:[id number] OF REPORTAFIcdjwqwzafmq9368-62-50Y43:01:00Z.PDOC2 [id number] for patient kedlDKNSXGOEHPUBFP6287-60-77R11:25:18 [facility] 2021-10-26 20:14:00 [id number] CUY36EZlKNYqSqe13CJ4e2s1yMxKl bWt4VY7ydL2zfBXZB/6CZ3xtygni6Ze1591-73-85R71:14:0 [address] [place] [address] PATIENT NAME: ALBA KAUR ADMIT DATE: 10/26/21ACCOUNT NO: [id number] ROOM NO: Z.SI04 AGE: 76 REPORT TYPE: ELECTROCARDIOGRAM SEX: F ADMITTING PHYSICIAN:Ady Ventura MD ATTENDING PHYSICIAN:Ady Ventura MD Order:[id number] Reason : s/p RCEA Test Date/Time Stamp:FriOct 26 2021 20:14:57Blood Pressure : / mmHGVent. Rate : 081 BPM Atrial Rate : 081 BPM P-R Int : 122 ms QRS Dur : 088 ms QT Int : 422 ms P-R-T Axes : 099 005 071 degrees QTc Int : 490 ms Normal sinus rhythmNonspecific ST abnormalityProlonged QTAbnormal ECGWhen compared with ECG of 23-AUG-2019 07:10,Sinus rhythm has replaced Atrial fibrillationST now depressed in Anterior leadsConfirmed by LAURIE CHRISTIAN ([id number]) on 10/27/2021 7:07:27 AM Referred By: Self Referred Confirmed by:LAURIE CHRISTIAN at 0707 PATIENT NAME: ALBA KAUR .[id number] AVAvailable for patient jdtwVZWGJKZZJPCZSV2700-61-08M63:07:49 [facility] 2021-10-26 20:14:00 [id number] zMad6sWQIfoAzfIWTuoI0u2cQ/JdH bD7liWdFPtS0Ibm5iU3fgcHKWHi9/R41252-66-21S91:14:0 [address] [place] [address] PATIENT NAME: ALBA KAUR ADMIT DATE: 10/26/21ACCOUNT NO: [id number] ROOM NO: Z.SI04 AGE: 76 REPORT TYPE: ELECTROCARDIOGRAM SEX: F ADMITTING PHYSICIAN:Ady Ventura MD ATTENDING PHYSICIAN:Ady Ventura MD Order:[id number] Reason : s/p RCEA Test Date/Time Stamp:FriOct 26 2021 20:14:57Blood Pressure : / mmHGVent. Rate : 081 BPM Atrial Rate : 081 BPM P-R Int : 122 ms QRS Dur : 088 ms QT Int : 422 ms P-R-T Axes : 099 005 071 degrees QTc Int : 490 ms Normal sinus rhythmNonspecific ST abnormalityProlonged QTAbnormal ECGWhen compared with ECG of 23-AUG-2019 07:10,Sinus rhythm has replaced Atrial fibrillationST now depressed in Anterior leadsConfirmed by LAURIE CHRISTIAN ([id number]) on 10/30/2021 6:03:08 AM Referred By: Self Referred Confirmed by:LAURIE CHRISTIAN at 0603 PATIENT NAME: ALBA KAUR .[id number] AVAvailable for patient epxrVTKHWVNJIRQXVJ2963-04-48I81:03:27 [facility] 2021-10-26 20:10:00 [id number] cfglQE1fYKcnytAvwos4wZDJXLkvH swlqtidfrOO+3+AF8P4aXf9InFKcD3s2582-30-27W27:10:0 [id number] [place] [address] PATIENT NAME: ALBA KAUR ADMIT DATE: 10/26/21ACCOUNT NO: [id number] ROOM NO: Z.SI04 AGE: 76 REPORT TYPE: OPERATIVE REPORT SEX: F ADMITTING PHYSICIAN:Ady Ventura MD ATTENDING PHYSICIAN:Ady Ventura MD OPERATION DATE: 10/26/2021 CARDIAC SURGERY SERVICE PREOPERATIVE DIAGNOSIS: Right internal carotid artery stenosis. POSTOPERATIVE DIAGNOSIS: Right internal carotid artery stenosis. PROCEDURES: Right CVP insertion, ultrasound-guided access with SonoSite, rightsubclavian vein; right carotid endarterectomy, Hemashield patch arterioplasty. SURGEON: Ady Ventura MD CHROME PLATER HELPER: Trinity Bernard PA-C ANESTHESIA: General. COMPLICATIONS: None. DISPOSITION: The patient to surgical ICU in stable condition. DESCRIPTION OF PROCEDURE: On 10/26/2021, patient was brought to the operatingroom, placed on the operating table in supine position, prepped and draped inusual fashion. Following introduction of satisfactory general anesthesia, thepatient had neck extended, turned left 45 degree angle. Right subclavian CVPwas placed using Seldinger percutaneous guidewire technique andultrasound-guided access with SonoSite, right subclavian vein. The patient wasthen prepped and draped in usual fashion with the neck extended, turned to left45 degree angle. Incision made along the anterior border of thesternocleidomastoid muscle. Carotid sheath and vessels placed around thecarotid arterial branches. The patient was heparinized. Clamps were placed. The arteriotomy of the common carotid through an extremely tight greater than95% long stenosis of the internal carotid artery at the takeoff. This was thenentered in a more normal portion of the internal carotid artery beyond thatbeyond the plaque. We irrigated with heparin saline solution. A shunt wasplaced. The endarterectomy performed, plaque feathered out nicely, the internalcarotid artery irrigated again with heparin saline solution. Hemashield patcharterioplasty closure with running 5-0 Prolene suture was done. Prior to patchclosure completion, the shunt was removed. All branches allowed to backbleed toflush air, debris and patch closure complete. Wounds were irrigated withantibiotic saline solution, closed in layers in usual fashion. Dressing appliedafter Domingo-Gonsalves drain had been placed prior to closing the incision after PATIENT NAME: ALBA KAUR the clamps released, had good pulse by palpation and Doppler within theincisions. Wounds were closed, dressings applied. The patient was intactneurologically and taken to the surgical ICU in stable condition. Dictated By: Ady Ventura MD WT: OP:Z.RUSTY/DARY/NTSDD: 10/26/2021 20:10:23DT: 10/26/2021 21:02:03Conf#: [id number]/DID#: [id number] cc: Laurie Christian MD Authenticated by Ady Ventura MD On 11/30/2021 10:14:43 AM at 1014 PATIENT NAME: TIFFANY KAURNDA Eric mzcmum7161-66-03Y87:02:00Z.MYW95015172-8191VECvkg lable for patient urcrPCYMLQGAIYERFH9723-16-15M07:15:19 [facility] 2021-10-26 19:29:00 [id number] j5mmkJFYIibJs8luNyZ7k7lsHcoPD FINrIbLlIOEyofe3K03L+1IfGVKmHYM6239-58-37Y95:29:0 0 [facility] ([facility])Brief Op NoteREPORT#:[id number] REPORT STATUS: SignedDATE:10/26/21 TIME: 1928 PATIENT: ALBA KAUR UNIT #: [id number]#: [id number] [address]: 47 AGE: 76 SEX: F ATTEND: Ady Ventura MDA AUTHOR: Ady Ventura MD * ALL edits or amendments must be made on the electronic/computer document * Op/Inv Proc Note - BriefPre-procedure diagnosis:Right internal carotid artery stenosis Post-procedure diagnosis: same as pre procedure dxProcedures performed:Right carotid endarterectomy with hemashield patch arterioplastyInsertion of right subclavian central line using sonosite US guidancePrimary Surgeon:Ady Calitanisaiah(s): SAAD Beck-cAnesthesiologist:Dr. Fuad Blank, CRNAAnesthesia: general anesthesiaFindings:See detailed op reportComplications: noneEstimated blood loss in ml's: 75ccSpecimens removed/altered: plaque from the right carotid arteryDrain(s): Benson Catheter Placed, CHRISTIAN drainApproach: openWound class: cleanDisposition: ICU, stable at 1933 RPT #:[id number] OF REPORTOPOperative ymoird1715-36-45G27:29:00Z.WMRD70372095-2637GAHul ilable for patient qcpkKTBYLZVMLFNSJE2929-99-68B39:33:39 [facility] 2021-10-20 13:42:00 [id number] +/6iXX7/DgSlOzJqs9o1fVjiOLqKC qKJLBHgaf3d5XW7sGbKP867fvvT7823-70-30T89:42:84440 0-[address] [address] PATIENT NAME: ALBA KAUR ADMIT DATE: 10/20/21ACCOUNT NO: [id number] ROOM NO: AGE: 76 REPORT TYPE: CONSULTATION REPORT SEX: F ADMITTING PHYSICIAN: ATTENDING PHYSICIAN:Laurie Christian MD CONSULTATION DATE: 10/20/2021 CONSULTING PHYSICIAN: Ady Ventura MD CARDIAC SURGERY SERVICE The patient is seen at bedside in the post-cath recovery area. DIAGNOSES: Coronary artery disease, high-grade right internal carotid arterystenosis, hypertension, hyperlipidemia, diabetes, cardiac ablation for atrialfibrillation in August 2019, infrarenal abdominal aortic stenosis. BRIEF HISTORY: This is a 76-year-old patient known to Dr. Christian's forprevious stent placement about 9 years ago. The patient has had a progressionof the right internal carotid artery stenosis on ultrasound now to 89% to 90% onduplex imaging. Cardiac cath and angiogram done shows severe high-grade carotidstenosis over 80% with severe atherosclerotic irregular disease. REVIEW OF SYSTEMS: Otherwise is negative. No history of smoking. FAMILY HISTORY: Positive for cardiovascular disease. She takes aspirin 81 mg, and metformin, amiodarone, Xarelto, which is on hold,metoprolol, losartan, simvastatin, and amlodipine. The patient denies having aprevious stroke. She denies having a previous SD. She did have previous stent. Cardiac catheterization shows residual multivessel disease. She will plan forthe future to have a stent in the right coronary artery. She has a stablelesion in the ramus ejection fraction about 55% on echo and LV gram. REVIEW OF SYSTEMS: Otherwise, is negative. No history of hemophilia,coagulopathy, varicose vein stripping or phlebitis. PHYSICAL EXAMINATION:GENERAL: Demonstrates well-nourished female in no apparent distress.NECK: There is soft right carotid bruit. Carotid pulse present.CHEST: Clear.HEART: Regular rate and rhythm without murmur.ABDOMEN: Soft, nontender, without mass.EXTREMITIES: Pedal pulse absent. Radial pulse present.BREASTS AND RECTAL: Not done.NEUROLOGIC: Physiological. PATIENT NAME: ALBA KAUR ASSESSMENT: High-grade right internal carotid artery stenosis. PLAN: We will plan for right carotid endarterectomy. The procedure,alternatives, possible risks and complications including the inherent and otherrisks of surgery were explained to the patient and family. They understand andaccept and want to proceed. We will hold Xarelto 4 days before surgery. Whenshe recovers from that sequentially we will bring the patient back and do mostlikely a stent of the infrarenal abdominal aorta, areas of high-grade stenosis,which has recovered from that. Dr. Christian will bring her back and plan to varun angioplasty stent of the right coronary artery. I have discussed with thepatient apparently this is our standard procedure to do these lesionssequentially and they understand. Dictated By: Ady Ventura MD WT: CON:ZOE/DARY/NTSDD: 10/20/2021 13:42:36DT: 10/20/2021 16:00:03Conf#: [id number]/DID#: [id number] Authenticated by Ady Ventura MD On 10/21/2021 02:59:09 PM at 0259 PATIENT NAME: ALBA KAUR :00:00[facility] [id number] for patient zxdjDIXYKLMNJVHMJA4604-05-70Z83:39:18 [facility] 2021-10-20 10:55:00 [id number] 3xn+TMECxKmqNUoFymhfATUgdKS3Z mNRICfLS2xfIspUBSN5DNz/M10y3825-50-16Y55:55:58298 0-0016 [place] [address] PATIENT NAME: ALBA KAUR ADMIT DATE: 10/20/21ACCOUNT NO: [id number] ROOM NO: AGE: 76 REPORT TYPE: eCAROTID ULTRASOUND SEX: F ADMITTING PHYSICIAN: ATTENDING PHYSICIAN:Laurie Christian MD *[facility]*[address] [place], [place] [address]Wqdbf Carotid Duplex Study Patient: Alba Kaur JStudy Date: 10/20/2021 BP: 150 / 70 [id number] 1945 Age: 76 Height: 69 in / 175.3 cmAccession#: [id number] Gender: F Weight: 145.7 lb / 66.2 kgBMI/BSA: 21.6 kg/m 2 / 1.79 m 2 *Ordering Physician: * Laurie Christian MD*Interpreting Physician: * Laurie Christian MD*Asphalt Worker: Makeda Martínez, CATRACHOT Indications: Pre-op evaluation. Study data: Carotid duplex study. Bilateral evaluation with wnyahobed5E imaging, color Doppler imaging, and spectral Doppler analysis.Location: Bedside. Patient status: Outpatient. Patient room number:ch3. Procedure: A vascular evaluation was performed. Images wereobtained using a [employer] vascular ultrasound machine. Image quality wasadequate. Study status: Routine. Findings Carotid/vertebral arteries:Right common carotid: The vessel is normal; it has no evidence ofdisease.Right internal carotid: The proximal vessel has extensive plaque.Proximal vessel lesion: There is an 80-99%stenosis. PATIENT NAME: ALBA KAUR Right external carotid: The vessel has moderate plaque.Right vertebral: The arterial flow direction is antegrade.Left vertebral: The arterial flow direction is antegrade.Left common carotid: The vessel is normal; it has no evidence ofdisease.Left internal carotid: The proximal vessel has plaque. Proximal vessellesion: There is a 20-39%stenosis.Left external carotid: The vessel has plaque. Arterial flow: Location PSV* EDV* PSV Stenosis Location PSV* EDV* PSV Stenosis ratio ratioR CCA, prox 46 9 ----- -------- L CCA, 64 12 ----- -------- proxR CCA, mid 35 8 ----- -------- L CCA, 59 11 ----- -------- midR CCA, 35 7 ----- -------- L CCA, 59 12 ----- --------distal distalR ICA, prox 304 64 6.56 80-99% L ICA, 80 20 1.25 20-39% proxR ICA, mid 140 33 3.01 -------- L ICA, 86 20 1.34 -------- midR ICA, 122 21 2.62 -------- L ICA, 89 23 1.39 --------distal distalR ECA 224 ---- ----- -------- L ECA 108 ---- ----- --------R vertebral 44 11 ----- -------- L 35 7 ----- -------- vertebra l *Velocities are expressed in cm/sec, Diameters are expressed in cm Conclusions 1. Study suggests 80-99% stenosis involving the right carotid artery bifurcation and right internal carotid artery.2. Study suggests 20-39% stenosis involving the left carotid artery bifurcation and left internal carotid artery.3. Antegrade flow noted in the right vertebral artery and left vertebral artery. Prepared and electronically signed by Laurie Christian MD10/20/2021 10:55 at 1055 PATIENT NAME: ALBA KAUR :55:0 0Z.[id number] for patient itnpRZLBHVYCBAFQJK1201-22-60Z99:56:14 [facility] 2021-10-20 09:37:00 [id number] 4HglesRiwjO6VIlXWw4QonMhRO4zS y4c3b3KWseEp5N8/ubHWkUSBKof4852-69-11F50:37:59072 0-0008 [place] [id number] PATIENT NAME: ALBA KAUR ADMIT DATE: 10/20/21ACCOUNT NO: [id number] ROOM NO: AGE: 76 REPORT TYPE: ECHOCARDIOGRAM SEX: F ADMITTING PHYSICIAN: ATTENDING PHYSICIAN:Laurie Christian MD *[facility]*[address] [place], [place] [id number] Transthoracic Echocardiogram Patient: Alba Kaur JStudy Date: 10/20/2021 BP: 150 / 70 Location: PRANAY: [id number] : 1945 Age: 76 Height: 69 in / 175.3 cmAccession#: [id number] Gender: F Weight: 145.7 lb / 66.2 kgBMI/BSA: 21.6 kg/m 2 / 1.79 m 2 *Ordering Physician: Laurie Valenzuela MD *Interpreting Physician: * Laurie Christian MD*Asphalt Worker: Makeda Martínez RVT Indications: CAD [place] Vessel. Study data: Transthoracic echocardiogram. Procedure: Transthoracicechocardiography was performed. Images were obtained using a [employer] cardiacultrasound machine. Image quality was adequate. M-mode, complete 2D,complete spectral Doppler, and color Doppler. Location: Recovery room. Patient status: Outpatient. Patient room number: CH3. Study status:Routine. Rhythm: Normal sinus rhythm. Findings Left ventricle: The cavity size is normal. Wall thickness is mildlyincreased. Systolic function is normal. The estimated ejection fractionis 55-60%. Wall motion is normal; there are no regional wall motionabnormalities. The pulmonary vein flow pattern is normal. Doppler PATIENT NAME: ALBA KAUR parameters are consistent with a reversible restrictive pattern,indicative of decreased left ventricular diastolic compliance and/orincreased left atrial pressure (grade 3 diastolic dysfunction).Right ventricle: The cavity size is normal. Systolic function is lownormal.Left atrium: The atrium is mildly dilated.Right atrium: The atrium is normal in size.Atrial septum: No defect or patent foramen ovale is identified.Aorta: The aortic root is not dilated.Aortic valve: The valve is trileaflet. The leaflets are mildlythickened. Thickening, consistent with sclerosis. Transvalvularvelocity is within the normal range. There is no evidence of stenosis.There is no regurgitation.Mitral valve: The annulus is mildly calcified. The leaflets are mildlythickened. There is mild regurgitation.Tricuspid valve: The leaflets are normal thickness. There ismild-moderate regurgitation.Pulmonic valve: The leaflets are normal thickness. There is mildregurgitation.Pericardium: A trivial pericardial effusion is identified. No evidenceof pleural fluid accumulation.Systemic veins:Inferior vena cava: The vessel is normal in size. Measurements Left ventricle Value Ref MIGUEL A, LAX 4.4 cm 3.8 - 5.2 ESD, LAX 3.2 cm 2.2 - 3.5 ESD/bsa, LAX 1.8 cm/m 2 1.3 - 2.1 FS, LAX 29 % 27 - 45 PW, ED 1.0 cm 0.6 - 0.9 PW, ES 1.2 cm --------- IVS/PW, ED 1.21 --------- EF 55 % 54 - 74 IVRT 91 ms --------- E', lat bubba, TDI 7.0 cm/sec >=10.0 E/e', lat bubba, 20 --------- TDI E', med bubba, TDI 6.0 cm/sec >=7.0 E/e', med bubba, 23 --------- TDI E', avg, TDI 6.5 cm/sec --------- E/e', avg, TDI 21 <=14 LVOT Value Ref Diam, S 1.98 cm --------- Area 3.1 cm 2 --------- Peak arden, S 0.88 m/sec --------- Mean arden, S 0.59 m/sec --------- VTI, S 23.2 cm --------- Peak grad, S 3 mm Hg --------- Mean grad, S 2 mm Hg --------- PATIENT NAME: ALBA KAUR SV 72 ml --------- Qs 4.6 L/min --------- Qs/bsa 2.6 L/(min-m 2) --------- SV/bsa 40 ml/m 2 --------- Ventricular septum Value Ref IVS, ED 1.2 cm 0.6 - 0.9 IVS, ES 1.2 cm --------- Right ventricle Value Ref MIGUEL A, LAX 2.1 cm --------- Pressure, S 41 mm Hg --------- RVOT Value Ref Peak v, S 0.69 m/sec --------- Peak grad, S 2 mm Hg --------- Left atrium Value Ref AP dim, ES 4.17 cm 2.70 - 3.80 Area ES, A4C 22 cm 2 <=20 AP dim, ES MM 4.4 cm 2.7 - 3.8 LA/Ao root 1.57 --------- ratio, MM Right atrium Value Ref Area, ES, A4C 15 cm 2 10 - 18 Aortic valve Value Ref Leaflet sep, MM 1.73 cm --------- Peak v, S 1.31 m/sec --------- Mean v, S 0.88 m/sec --------- VTI, S 32.3 cm --------- Mean grad, S 3.5 mm Hg --------- Peak grad, S 6.8 mm Hg --------- LVOT/AV, VTI 0.72 --------- ratio ARSLAN, VTI 2.21 cm 2 --------- LVOT/AV, Vpeak 0.67 --------- ratio ARSLAN, Vmax 2.08 cm 2 --------- Mitral valve Value Ref Peak E 1.4 m/sec --------- Peak A 0.79 m/sec --------- Mean v, D 0.96 m/sec --------- VTI leaflet 38.0 cm --------- coapt Decel time 184 ms --------- PHT 62 ms --------- Mean grad, D 4.3 mm Hg --------- Peak grad, D 10.2 mm Hg --------- Peak E/A ratio 1.77 --------- MVA, PHT 3.6 cm 2 --------- PATIENT NAME: ALBA KAUR Eric MR peak v 3.92 m/sec --------- Pulmonic valve Value Ref WI v, ED 0.64 m/sec --------- Tricuspid valve Value Ref TR peak v 3.01 m/sec <=2.8 Peak RV-RA grad, 36 mm Hg --------- S Aortic root Value Ref Root diam 2.7 cm <4.0 Root diam, ED MM 2.81 cm --------- Pulmonary artery Value Ref Pressure, S 37.8 mm Hg --------- Systemic veins Value Ref Estimated CVP 5 mm Hg --------- Conclusions Summary: 1. Left ventricle: The cavity size is normal. Wall thickness is mildly increased. Systolic function is normal. The estimated ejection fraction is 55-60%. Wall motion is normal; there are no regional wall motion abnormalities. Doppler parameters are consistent with a reversible restrictive pattern, indicative of decreased left ventricular diastolic compliance and/or increased left atrial pressure (grade 3 diastolic dysfunction).2. Right ventricle: The cavity size is normal. Systolic function is low normal. The RV pressure during systole by Doppler is 41 mm Hg.3. Left atrium: The atrium is mildly dilated.4. Aortic valve: Thickening, consistent with sclerosis.5. Tricuspid valve: There is mild-moderate regurgitation.6. Pericardium, extracardiac: A trivial pericardial effusion is identified. Prepared and electronically signed by Laurie Christian MD10/20/2021 09:37 at 0937 PATIENT NAME: ALBA KAUR :37:0 0Z.[id number] for patient jouoVTWCEOQDHTNJYP3019-91-99I85:38:19 [facility] 2021-10-20 09:26:00 [id number] Is036PymeN/sBfxkN0Hy2S3jYX1cN AtswJUsM/QbpgGu0REyAdcXjngW7206-52-70R71:26:38084 0-[address] [address] PATIENT NAME: ALBA KAUR ADMIT DATE: 10/20/21ACCOUNT NO: [id number] ROOM NO: AGE: 76 REPORT TYPE: ELECTROCARDIOGRAM SEX: F ADMITTING PHYSICIAN: ATTENDING PHYSICIAN:Laurie Christian MD Order:[id number] Reason : CAD Test Date/Time Stamp:FriOct 20 2021 09:26:51Blood Pressure : / mmHGVent. Rate : 069 BPM Atrial Rate : 069 BPM P-R Int : 132 ms QRS Dur : 082 ms QT Int : 424 ms P-R-T Axes : 066 057 039 degrees QTc Int : 454 ms Normal sinus rhythmLow voltage QRSBorderline ECGWhen compared with ECG of 20-OCT-2021 06:45,No significant change was foundConfirmed by LAURIE CHRISTIAN ([id number]) on 10/20/2021 9:40:28 AM Referred By: Self Referred Confirmed by:LAURIE CHRISTIAN at 0940 PATIENT NAME: ALBA KAUR .[id number] AVAvailable for patient prqaSFCEPUOERDXKEM3112-50-34N41:40:50 [facility] 2021-10-20 09:26:00 [id number] rDM62GM1Z8vrmPBbK7WkcrMefEmTt K1gs2sRdVIogbLckoUTTkN6+WB37835-77-86U53:26:56135 2-0035 [place] [address] PATIENT NAME: ALBA KAUR ADMIT DATE: 10/20/21ACCOUNT NO: [id number] ROOM NO: AGE: 76 REPORT TYPE: ELECTROCARDIOGRAM SEX: F ADMITTING PHYSICIAN: ATTENDING PHYSICIAN:Laurie Christian MD Order:[id number] Reason : CAD Test Date/Time Stamp:FriOct 20 2021 09:26:51Blood Pressure : / mmHGVent. Rate : 069 BPM Atrial Rate : 069 BPM P-R Int : 132 ms QRS Dur : 082 ms QT Int : 424 ms P-R-T Axes : 066 057 039 degrees QTc Int : 454 ms Normal sinus rhythmLow voltage QRSBorderline ECGWhen compared with ECG of 20-OCT-2021 06:45,No significant change was foundConfirmed by LAURIE CHRISTIAN ([id number]) on 10/22/2021 4:45:53 PM Referred By: Self Referred Confirmed by:LAURIE CHRISTIAN at 1645 PATIENT NAME: ALBA KAUR .[id number] AVAvailable for patient ryevPHXABNOOFJKPEQ4461-07-34K88:46:29 [facility] 2021-10-20 08:16:00 [id number]/Lorelei YYzxSN79vjHli7b/JKvZ+3CeDWpoR pNoo9Q4FY6v4m9VhnF1A3T/wfkd8748-74-53M89:16:53287 0-0018 [place] [address] PATIENT NAME: ALBA KAUR ADMIT DATE: 10/20/21ACCOUNT NO: [id number] ROOM NO: AGE: 76 REPORT TYPE: CARDIAC CATHETERIZATION REPORT SEX: F ADMITTING PHYSICIAN: ATTENDING PHYSICIAN:Laurie Christian MD PROCEDURE DATE: 10/20/2021 EARRING MAKER: Laurie Christian MD TITLE OF THE PROCEDURE:1. Left heart catheterization.2. Bilateral selective carotid angiograms.3. Abdominal angiogram.4. Sealing device. INDICATION FOR THE PROCEDURE: Known coronary artery disease, dyspnea, severeright carotid disease and the peripheral arterial disease and a possibleabdominal aortic aneurysm. ESTIMATED BLOOD LOSS: Minimal. COMPLICATIONS: None. CONTRAST: 200 mL. ANESTHESIA: Conscious sedation with Versed and fentanyl. A 1% lidocaine forlocal anesthesia. FINAL DIAGNOSES: Two-vessel coronary artery disease, patent RCA stent, elevatedleft ventricular end-diastolic pressure. The right carotid is 85% ulcerated. The distal abdominal aorta has 2 lesions, both infrarenal. The first one is 75%ulcerated and the other one right above the bifurcation is 60%. Possible smallabdominal aneurysm in between the 2 lesions. There is a 60% calcified plaquingof the common femoral. RECOMMENDATIONS: 1. Carotid endarterectomy on the right. 2. Abdominal aortic stent.3. Intervention on the right coronary artery lesion and possibly the ramuslesion. ESTIMATED BLOOD LOSS: Minimal. COMPLICATIONS: None. CONTRAST: 200 mL. PATIENT NAME: ALBA KAUR ANESTHESIA: Conscious sedation with Versed and fentanyl. A 1% lidocaine forlocal anesthesia. PROCEDURE IN DETAIL: After informed consent, the patient was brought to thecardiac catheterization lab in a stable fasting nonsedated state. She wasprepped and draped in the usual sterile fashion. After conscious sedation, 1%lidocaine was administered to the right common femoral artery area for localanesthesia. A 6-Peruvian sheath was placed in the right common femoral arteryusing standard techniques and fluoroscopy. After heparinization, left coronaryangiogram showed 20% plaquing of the left main, 30% of the LAD and the diagonal,25% plaquing of the circumflex. There is a ramus intermedius, 2 mm vessel with99% disease. This was there back in 2012 when I did her last catheterization. Right coronary angiogram showed 70% lesion, focal distal to the patent stentwith 30% proximal plaquing. Left ventricular angiogram showed an ejectionfraction of 65%, left ventricular end-diastolic pressure of 31, no wall motionabnormalities or aortic valve gradient. On the carotids, the right carotid was85% ulcerated at the origin of the internal. The external is 60% disease. Onthe left side, there was only luminal irregularities. While doing theprocedure, I notice from the beginning some disease in the abdominal aorta andtortuosity and was having hard time passing the wire, so I had to do theprocedure with wire exchange. So, I did a selective shot of the iliacs and didan abdominal aortogram that showed luminal irregularities of the renals, 75%lesion in the infrarenal aorta ulcerated followed by a small abdominal aorticaneurysm, followed by 60% lesion right above the bifurcation. Common femoralangiogram on the right showed a 60% calcified lesion. The stick for the accesswas right above the calcified lesion, so I was able to do an Angio-Sealsuccessfully. The patient tolerated the procedure well. She will betransferred back to the holding area for observation. She will be getting asurgical consultation and then will most likely go home this afternoon. Thiswas all discussed in detail with the patient. Dictated By: Laurie Christian MD WT: CATH:Z.CPS/ALBARO/NTSDD: 10/20/2021 08:16:03DT: 10/20/2021 11:09:03Conf#: [id number]/DID#: [id number] Authenticated by Laurie Christian MD On 10/20/2021 11:55:33 AM at 1155 PATIENT NAME: ALBA KAUR neis3417-95-73K36:09:00Z.[id number] ble for patient hmcdGUNGNFCENMAAOM5697-09-33I55:56:07 [facility] 2021-10-20 06:45:00 [id number] 8p/KMMz5NdwChiE7dLM5xngNl3Y9X 87kom+18KeJ6WJngX6myypiab4s5433-49-36Z59:45:98674 0-0007 [place] [address] PATIENT NAME: ALBA KAUR ADMIT DATE: 10/20/21ACCOUNT NO: [id number] ROOM NO: AGE: 76 REPORT TYPE: ELECTROCARDIOGRAM SEX: F ADMITTING PHYSICIAN: ATTENDING PHYSICIAN:Laurie Christian MD Order:[id number] Reason : PRE-PROCEDURE Test Date/Time Stamp:FriOct 20 2021 06:45:42Blood Pressure : / mmHGVent. Rate : 066 BPM Atrial Rate : 066 BPM P-R Int : 120 ms QRS Dur : 084 ms QT Int : 440 ms P-R-T Axes : 000 060 063 degrees QTc Int : 461 ms Normal sinus rhythmNormal ECGNo previous ECGs availableConfirmed by LAURIE CHRISTIAN ([id number]) on 10/20/2021 7:09:32 AM Referred By: Self Referred Confirmed by:LAURIE CHRISTIAN at 0709 PATIENT NAME: ALBA KAUR .[id number] AVAvailable for patient ieymVLOBJHFXYVAUAY8253-99-73Y23:10:00 [facility] 2021-10-20 06:45:00 [id number] Da5mVSjd+kYnG0DkaU7gf+MEjVW+Z It+1qblSZ+PXh8jvvoJ3bCd2TOP0557-77-85T50:45:25571 2-0032 [place] [address] PATIENT NAME: ALBA KAUR ADMIT DATE: 10/20/21ACCOUNT NO: [id number] ROOM NO: AGE: 76 REPORT TYPE: ELECTROCARDIOGRAM SEX: F ADMITTING PHYSICIAN: ATTENDING PHYSICIAN:Laurie Christian MD Order:[id number] Reason : PRE-PROCEDURE Test Date/Time Stamp:FriOct 20 2021 06:45:42Blood Pressure : / mmHGVent. Rate : 066 BPM Atrial Rate : 066 BPM P-R Int : 120 ms QRS Dur : 084 ms QT Int : 440 ms P-R-T Axes : 000 060 063 degrees QTc Int : 461 ms Normal sinus rhythmNormal ECGNo previous ECGs availableConfirmed by LAURIE CHRISTIAN ([id number]) on 10/22/2021 4:45:44 PM Referred By: Self Referred Confirmed by:LAURIE CHRISTIAN at 1645 PATIENT NAME: ALBA KAUR .[id number] AVAvailable for patient gdywHPCMHNLYUKGINO2201-09-22X59:45:59 [facility] 2021-10-19 07:13:00 [id number] gPaDz5QuN6KMJcFmP0l1rBrLR4cxH 5NOkCinVlVGe1CY0aqQLAc/3m2F1577-55-57M74:13:75683 9-0044 [place] [address] PATIENT NAME: ALBA KAUR ADMIT DATE: ACCOUNT NO: [id number] ROOM NO: AGE: 76 REPORT TYPE: HISTORY AND PHYSICAL SEX: F ADMITTING PHYSICIAN: ATTENDING PHYSICIAN:Laurie Christian MD PATIENT NAME: ALBA KAUR ADMIT DATE:10/20/2021DMISSION DATE: 10/20/2021 EARRING MAKER: Laurie Christian MD REASON FOR ADMISSION: Dyspnea, coronary artery disease, worsening carotiddisease, for cardiac and carotid angiograms and possible revascularization. HISTORY OF PRESENT ILLNESS: Alba is a 76-year-old patient of mine who hasknown atherosclerotic cardiovascular disease that [facility]. Back on 07/11/2012, the patient had cardiac catheterizationshowing 2-vessel coronary artery disease, 60% LAD, 50% diagonal, 80% ramus, 99%RCA for which she received a Resolute Integrity stent 3 x 15. The patient hasdone well from the coronary standpoint until recently where she has worseningdyspnea on exertion. She had no recent stress testing; however, on her carotidDoppler, she had worsening carotid with right side 80% to 99%. Given theworsening carotid disease and the patient's known history and known coronaryartery disease, she is here for cardiac and carotid angiograms to assess forfurther possible revascularization. The patient is denying any chest pains atthis time. She has some issues with paroxysmal atrial fibrillation and her lastmonitor did not show any fibrillation runs. Her last echocardiogram showedhypertensive changes with mild mitral regurgitation. The last carotid Doppleris described above. The last cardiac catheterization was in 2012. PAST MEDICAL HISTORY: Remarkable for hypertension, hyperlipidemia, carotiddisease, diabetes, acid reflux, and allergies. PAST SURGICAL HISTORY: She has had hysterectomy in 2003, above-mentioned stent,cardiac ablation for the fibrillation in August of 2019 and right eye cataractsurgery. ALLERGIES: NO KNOWN DRUG ALLERGIES. MEDICATIONS: Aspirin 81 mg daily, metformin is on hold, simvastatin 40 mgdaily, amiodarone 200 mg daily, Xarelto 15 mg daily is on hold, metoprolol 100mg daily, amlodipine 2.5 mg daily, losartan 100 mg daily. SOCIAL HISTORY: There is no history of smoking, alcohol, or street drug use. FAMILY HISTORY: Positive for atherosclerotic cardiovascular disease. REVIEW OF SYSTEMS: Remarkable for difficulty balancing, anxiety and depression. PATIENT NAME: ALBA KAUR No acute GI or symptoms. No TIAs or strokes. She has had problems withinsomnia, macular degeneration and ringing in the ears. PHYSICAL EXAMINATION:GENERAL: Reveals a pleasant elderly lady in no acute distress.VITAL SIGNS: Blood pressure 150/70, pulse 82 and regular, respiratory rate 18and unlabored, and temperature afebrile.HEENT: Head, atraumatic and normocephalic. Eyes ENT examination within normalfor age.NECK: Supple. No jugular venous distention, bruits, or lymphadenopathy.Normal upstroke.LUNGS: Clear and resonant.HEART: Regular rate and rhythm with II/ systolic ejection murmur at the leftlower sternal border. No gallops.ABDOMEN: Soft. No tenderness, no organomegaly, no masses or bruits.EXTREMITIES: A 2+ distal pulses. No edema, cyanosis, or clubbing.NEUROLOGIC: Alert and oriented x3. The examination appears to be nonfocal. LABORATORY DATA: Pending. Noninvasive cardiovascular workup enclosed. IMPRESSION: This is a 76-year-old lady with known coronary artery disease,status post right coronary artery stent in 2012. The patient has worseningcarotid disease and history of dyspnea on mild exertion, she may have worseningcoronary artery disease. The patient is here for left heart catheterization andselective carotid angiograms to assess for possible revascularization. The recommendation is to proceed with the above-mentioned procedures. The risksand benefits of the planned procedures were discussed in detail with the patientand available family members and she is willing to proceed. Rest as per orders. Dictated By: Laurie Christian MD WT: HP:LynBlaineRUSTY/ALBARO/NTSDD: 10/19/2021 07:13:02DT: 10/19/2021 11:30:41Conf#: [id number]/DID#: [id number] and Edited by Laurie Christian MD On 10/19/21 3:47:16 PM at 0349 PATIENT NAME: ALBA KAUR and physical qdyhljkxjbm3661-78-31T88:30:00Z.[id number] VAvailable for patient bhptTAMIZFSYFRLFOE7643-68-35I00:50:35 [facility] 2019-08-30 12:54:00 [id number] Pvd+pXPrAV3kwTtpbppBEfD2aqkaa ISYVJ3CWlmeZ/4VyijhSngZgqnQiVow+vF8628-54-82K57:5 4:225988-8550 [place] [address] PATIENT NAME: ALBA KAUR ADMIT DATE: 08/23/19ACCOUNT NO: [id number] ROOM NO: Z.363 AGE: 74 REPORT TYPE: eTRANSESOPHAGEAL ECHO SEX: F ADMITTING PHYSICIAN:Skinny Cantu MD ATTENDING PHYSICIAN:Skinny Cantu MD *[facility]*[address] [place], [place] [address]Phone Transesophageal Echocardiogram Patient: Alba Kaur JStudy Date: 08/23/2019 BP: [id number] 1945 Age: 74 Height: 0 in / 0 cmAccession#: [id number] Gender: F Weight: 0 lb / 0 kgBMI/BSA: / *Ordering Physician: * Skinny Cantu MD *Interpreting Physician: * Skinny Cantu MD*Asphalt Worker: * Sofia Escoto RDCS, RVT Indications: PVI, EVAL HILARIO. Study data: Consent: The risks, benefits, and alternatives to theprocedure were explained to the patient and informed consent wasobtained. Procedure: Initial setup: The patient was brought to thelaboratory in the fasting state.Intravenous access was obtained. SurfaceECG leads and pulse oximetric signals were monitored. Sedation. Moderatesedation was administered by cardiology staff. Transesophagealechocardiography was performed. Topical anesthesia was obtained usingviscous lidocaine. A transesophageal probe (SN: [id number]) was inserted bythe attending rn orthopedic without difficulty. 2D and complete spectralDoppler. Location: Catheterization laboratory. Patient status:Outpatient. Patient room number: CATHLAB3. Study status: Scheduled.Study completion: The patient tolerated the procedure well. There wereno complications. Findings PATIENT NAME: TANIKAALBA THAPA [phone] [place] [address] PATIENT NAME: TANIKAALBA THAPA ADMIT DATE: 08/23/19ACCOUNT NO: [id number] ROOM NO: [facility] AGE: 74 REPORT TYPE: eTRANSESOPHAGEAL ECHO SEX: F ADMITTING PHYSICIAN:Skinny Cantu MD ATTENDING PHYSICIAN:Skinny Cantu MD Left ventricle: The cavity size is normal. Systolic function is normal.Right ventricle: The cavity size is normal. Systolic function isnormal.Left atrium: The atrium is normal in size. There is no left atrialappendage thrombus.Right atrium: The atrium is normal in size.Atrial septum: No defect or patent foramen ovale is identified.Aorta: There is moderate atheromatous plaque.Aortic valve: The leaflets are normal thickness. There is noregurgitation.Mitral valve: The leaflets are normal thickness. There is mildregurgitation.Tricuspid valve: There is mild regurgitation.Pulmonic valve: There is physiologic regurgitation.Pericardium: A small pericardial effusion is identified. Measurements Tricuspid valve Value Ref TR peak v 2.56 m/sec <=2.8 Peak RV-RA grad, S 26 mm Hg ----- Conclusions Summary: 1. Left ventricle: The cavity size is normal. Systolic function is normal.2. Pericardium, extracardiac: A small pericardial effusion is identified. Prepared and electronically signed by Skinny Cantu MD08/30/2019 12:54 PATIENT NAME: ALBA KAUR [phone] [address] PATIENT NAME: ALBA KAUR ADMIT DATE: 08/23/19ACCOUNT NO: [id number] [facility] 74 REPORT TYPE: eTRANSESOPHAGEAL ECHO SEX: F ADMITTING PHYSICIAN:Skinny Cantu MD ATTENDING PHYSICIAN:Skinny Cantu MD at 1254 PATIENT NAME: ALBA KAUR ngkeupi9522-89-22E38:54:00Z.YFR86557426-4902DKCvx ilable for patient glewJVAGECJPQKJJFA0686-44-69L97:55:01 [facility] 2019-08-24 06:58:00 SIodnlzzdwn52101286O MS4JV3ZUelCUAv1JZUWGG3YNqPq9m /VhBnjJ3FWQ+MczZrIt9LzmSsKBnHosy3A2429-70-11J46:5 8:00 [facility]Card[facility] Progress NoteREPORT#:[id number] REPORT STATUS: SignedDATE:08/24/19 TIME: 06 PATIENT: ALBA KAUR UNIT #: [id number]#: [id number] [facility] [birth year] AGE: 74 SEX: F ATTEND: Skinny Cantu [facility] AUTHOR: Skinny Cantu MD * ALL edits or amendments must be made on the electronic/computer document * SubjectiveChief Complaint:AFIBHPI:Feels better.Patient reports:No: chest pain, palpitations, shortness of breath. Objective GeneralVS/I O:24 hour I O ending at 0700: 08/23 0700 08/22 1900 Intake Total Output Total 700 Balance -700 Output, Urine 700 Patient 72.575 kg Weight Vital Signs: Date Time Temp Pulse Resp B/P B/P Pulse O2 O2 Flow FiO2 Mean Ox Delivery Rate 08/237 97.7 82 18 100/59 72.9 95 Room air 08/23 0115 82 104/55 71.3 93 08/23 0014 83 115/68 83.6 93 08/22 2314 87 121/68 85.3 93 08/22 2244 86 133/71 91.9 94 08/22 2214 90 131/67 88.2 94 2205 88 18 127/70 89.2 95 Room air 08/23 2143 89 127/70 89.2 96 08/22 2113 87 124/68 86.6 92 08/22 2058 85 131/72 91.4 92 08/22 2044 87 120/69 85.5 89 08/23 2043 86 120/69 85.5 08/22 2040 98.4 87 18 127/72 90.7 91 Room air Patient Weight Weight (lb): 160Weight (oz): Weight (kg): 72.682806 Medications:Active Meds + DC'd Last 24 HrsAmiodarone HCl 200 MG DAILY PO Amlodipine Besylate 2.5 MG DAILY PO Levothyroxine Sodium 88 MCG DAILY PO Pantoprazole 40 MG DAILY PO Carvedilol 6.25 MG Q12HR PO Enoxaparin Sodium 40 MG Q12HR SUBQ Atropine Sulfate 0 .STK-MED ONE .ROUTE (DC) Labetalol HCl 10 MG Q4H PRN PRN IV Acetaminophen 650 MG Q4H PRN PRN PO Hydrocodone Bitart/Acetaminophen 1 TAB Q4H PRN PRN PO Sodium Chloride 1,000 ML ONCE ONE IV (DC) Fentanyl Citrate 0 .STK-MED ONE .ROUTE (DC) Heparin Sodium/Sodium Chloride 500 ML .STK-MED ONE IV (DC) Lidocaine HCl 0 .STK-MED ONE .ROUTE (DC) Heparin Sodium/Sodium Chloride 500 ML .STK-MED ONE IV (DC) Phenylephrine HCl 0 .STK-MED ONE .ROUTE (DC) Sodium Chloride 100 ML .STK-MED ONE IV (DC) Fentanyl Citrate 0 .STK-MED ONE .ROUTE (DC) Propofol 0 .STK-MED ONE .ROUTE (DC) Heparin Sodium/Dextrose 500 ML .STK-MED ONE IV (DC) Iopamidol 0 .STK-MED ONE .ROUTE (DC) Lidocaine 0 .STK-MED ONE .ROUTE (DC) Sodium Chloride 0 .STK-MED ONE IV (DC) Atropine Sulfate 0 .STK-MED ONE .ROUTE (DC) Heparin Sodium 0 .STK-MED ONE .ROUTE (DC) Isoproterenol HCl 0 .STK-MED ONE .ROUTE (DC) Physical ExamGeneral appearance: alert, awake, orientedHead/Eyes: atraumatic, normocephalicENT: moist mucosal membranesNeck: no JVDCardiovascular: CV assessment: regular rate and rhythmRespiratory: clear to auscultation, no distressLower extremity: LE assessment: no edemaMusculoskeletal: full range of motionNeuro/WIRE SAWYER: alert, oriented X 3, CN II-XII intactSkin: dry, intactPsychiatry: normal affect, normal judgment/insight, normal mood ResultsFindings/Data:Laboratory Tests 08/22 08/22 08/22 08/22 08/22 1319 1254 1228 1216 1153 Coagulation Activated Coag Time (74 - 137 SEC) 373 H 296 H 318 H 417 H 345 H 08/22 1131 Coagulation Activated Coag Time (74 - 137 SEC) 268 H Diagnosis, Assessment PlanHospital course to date:IMP: PAF/PAFL S/P PVI, RFA PLAN: d/c home f/u one week at 0937 [facility] #:[id number] OF REPORTPRProgress Fhro9054-28-69O75:58:00Z.EBOC98994326-8566QPTitpu able for patient hriwFXMTNIEECSDTTC1980-91-94V13:37:45 [facility] 2019-08-23 15:57:00 NTzufetyiqy51719272Q 5a+zQXma7fBmLbhHk97kdQMgqaRa7 BeukHyEKNE09S7peQZhcBF80+nTfBhRY9i3567-77-74B28:5 7:517348-5403 [place] [address] PATIENT NAME: ALBA KAUR ADMIT DATE: 08/19/19ACCOUNT NO: [id number] ROOM NO: [facility] AGE: 74 REPORT TYPE: CARDIAC CATHETERIZATION REPORT SEX: F ADMITTING PHYSICIAN:Skinny Cantu MD ATTENDING PHYSICIAN:Skinny Cantu MD PROCEDURE DATE: 08/19/2019 PROCEDURES:1. Diagnostic electrophysiology study with attempted induction.2. Left atrial recordings.3. Two-dimensional interatrial mapping.4. Stimulation after IV drug infusion. PREOPERATIVE DIAGNOSIS: Paroxysmal atrial flutter. POSTPROCEDURE DIAGNOSES:1. Paroxysmal atrial flutter.2. Paroxysmal atrial fibrillation. ANESTHESIA: Local sedation with 1% lidocaine and moderate sedation. DRYING ROOM SUPERVISOR: Skinny Cantu MD CHROME PLATER HELPER: None. PROCEDURE DETAILS: After informed consent was obtained explaining to thepatient risks, benefits, and alternatives, the patient brought to the cardiaccatheterization lab in the fasting postabsorptive state. She was prepped anddraped in sterile fashion. Local anesthesia was applied over the femoral veinswith 1% lidocaine. Access to the veins was obtained using modified Seldingertechnique with a micropuncture kit and ultrasound guidance. Two 6-Peruvian andone 8-Peruvian sheath were placed in the left femoral vein. A locking 8-Frenchsheath and a standard 8-Peruvian sheath were placed in the right femoral vein.All sheaths were aspirated and flushed and connected to heparinized salineinfusion. A Cournand catheter was advanced via the 6-Peruvian sheath placed inthe right ventricle. A Ismael catheter was advanced via the other 6-Frenchsheath and placed in the high right atrium. A deflectable quadripolar catheterwas advanced via the 8-Peruvian sheath on the left and placed in the HIS position. A decapolar catheter was advanced via the locking 8-Peruvian sheath and placed inthe coronary sinus. It was locked in place. Program stimulation was thenperformed. Isuprel was administered and further program stimulation wasperformed. This resulted in development of atrial fibrillation. A synchronizedcardioversion was then performed. This was unsuccessful and resulted incontinuing atrial fibrillation. IV amiodarone was then loaded and then a secondattempt at cardioversion was performed. This also was unsuccessful. At the endof the procedure, all catheters were removed. [facility] All sheaths were removed and hemostasis PATIENT NAME: ALBA KAUR achieved with local pressure. The patient tolerated the procedure well with nocomplications. FINDINGS:1. Initial presenting rhythm was sinus.2. Atrial fibrillation induced.3. Unsuccessful cardioversion. ESTIMATED BLOOD LOSS: 5 mL. COMPLICATIONS: No complications. PLAN: We will plan to reschedule the patient for pulmonary vein isolation aswell as atrial flutter ablation. The procedure has been explained to thepatient in detail and she elects to proceed. Dictated By: Skinny Cantu MD WT: CATH:Z.RU/PEPMAYO/NTSDD: 08/23/2019 15:57:06DT: 08/23/2019 17:17:50Conf#: [id number]/DID#: [id number] Authenticated and Edited by Skinny Cantu MD On 08/24/19 7:08:06 AM at 0710 PATIENT NAME: ALBA KAUR Eedo4391-24-25Q68:17:00Z.[id number] ble for patient cgnjCOGBLGJBUYJKOU0820-64-94L19:10:21 [facility] 2019-08-23 13:50:00 [id number] /o6hH4mgBP7KzxouIX5vby9kjpgY4 yTJAnwapkCkYh4kb7lr544nnJfLIgKSRg21343-30-19Z27:5 [id number] [place] [address] PATIENT NAME: ALBA KAUR ADMIT DATE: 08/23/19ACCOUNT NO: [id number] ROOM NO: AGE: 74 REPORT TYPE: CARDIAC CATHETERIZATION REPORT SEX: F ADMITTING PHYSICIAN: ATTENDING PHYSICIAN:Skinny Cantu MD PROCEDURE DATE: 08/23/2019 PROCEDURES:1. Intracardiac echocardiography.2. Three-dimensional interatrial mapping.3. Pulmonary vein isolation/atrial fibrillation ablation.4. Ablation of additional atrial arrhythmia focus. PREPROCEDURE DIAGNOSES:1. Paroxysmal atrial flutter.2. Paroxysmal atrial fibrillation. POSTPROCEDURE DIAGNOSES:1. Paroxysmal atrial flutter.2. Paroxysmal atrial fibrillation. DRYING ROOM SUPERVISOR: Skinny Cantu MD ANESTHESIA: General endotracheal anesthesia. CHROME PLATER HELPER: None. PROCEDURE DETAILS: After informed consent was obtained explaining to thepatient risks, benefits, and alternatives, the patient was brought to thecardiac catheterization lab in the fasting postabsorptive state. She wasprepped and draped in a sterile fashion. Following induction of generalanesthesia, local anesthesia was applied over both femoral veins and leftfemoral artery. Access to the vessels was obtained using modified Seldingertechnique with a micropuncture kit. A locking 8-Peruvian sheath and Helen sheathwere placed in the right femoral vein. A 9-Peruvian, standard 8-Peruvian sheathswere placed in the left femoral vein. A 6-Peruvian sheath was placed in leftfemoral artery and utilized for arterial blood pressure monitoring. All sheathswere aspirated and flushed. The arterial sheath was sutured in place with a 0Ethibond suture. An intracardiac echocardiography catheter was advanced via the9-Peruvian sheath and placed in the right atrium. A decapolar catheter wasadvanced via the locking 8-Peruvian sheath and placed in the coronary sinus. Adeflectable quadripolar catheter was advanced via the 8-Peruvian sheath on theleft and placed on the lateral cavotricuspid isthmus. A SmartTouch ThermoCoolablation catheter was advanced via the Helen sheath into the cavotricuspidisthmus region. Multiple RF applications were made across the cavotricuspidisthmus resulting in bidirectional block. Bidirectional block was verified withdifferential pacing. PATIENT NAME: ALBA KAUR The ablation catheter was then removed. The Helen RF needle was then advancedthrough the Helen dilator. Intracardiac echocardiography was performed tovisualize the interatrial septum. The Helen sheath, dilator, and needle werewithdrawn into the posterior septal region. After appropriate placement of thedilator, the needle was advanced and a transseptal was performed withoutradiofrequency energy. The dilator was advanced across the septum. The needlewas removed and the Helen ProTrack wire was then advanced into the left atrium. The sheath was then advanced over the dilator and wire. The dilator and wirewere then removed. The sheath was aspirated and flushed. Left atrial pressureswere recorded. A PentaRay catheter was then advanced through the Helen sheathinto the left atrium. Three-dimensional interatrial mapping was then obtainedvia the PentaRay catheter. After completing the three-dimensional mappingcreating a voltage map, the PentaRay was removed. The Helen ProTrack wire wasthen placed through the Helen sheath. The sheath was removed. The groin wasprogressively dilated with a 12 and 14-Peruvian sheath. The cryosheath sheath wasthen advanced over the wire into the left atrium. The dilator and wire wereremoved. The cryoballoon was then prepped and advanced through the cryosheath. Over the Achieve catheter, the cryoballoon was advanced sequentially into theleft superior, then left inferior, right inferior, and right superior veins. Sequential isolation of the pulmonary veins was performed. Esophagealtemperature monitoring was utilized throughout. Phrenic nerve pacing wasutilized while isolating the right pulmonary veins to ensure phrenic nerveintegrity. At the end of the cryotherapy, the balloon was removed and thePentaRay replaced. A post-ablation 3-dimensional interatrial map was thenobtained. Entrance and exit blocks were then confirmed with exit block beingconfirmed by pacing in all 4 veins. At the end of the procedure, all catheterswere removed. The sheaths were aspirated and flushed. The venous sheaths wereremoved and hemostasis achieved with a abiufe-ab-nqugj suture. A right femoralarteriogram was obtained via the arterial sheath. The patient had a highbifurcation of the superficial femoral and profundus. The decision was made toleave the sheath in place and have the sheath removed and hemostasis with manualpressure after the ACT returns to normal. The patient tolerated the procedurewell with no complications. CONCLUSIONS:1. Successful cavotricuspid isthmus ablation.2. Successful pulmonary vein isolation.3. Estimated blood loss 20 mL.4. No complications. Dictated By: Skinny Cantu MD WT: CATH:DANIA/PEPMAYO/NTSDD: 08/23/2019 13:50:45DT: 08/23/2019 15:25:46Conf#: [id number]/DID#: [id number] cc: Laurie Christian MD Authenticated by Skinny Cantu MD On 08/23/2019 03:51:42 PM PATIENT NAME: TANIKAALBA Reyes at 1552 PATIENT NAME: TANIKAALBA Mpqs2266-53-09A87:25:00Z.[id number] ble for patient vcqfZEJPDQVHJYXOGB8641-69-36G30:52:20 [facility] 2019-08-23 07:10:00 [id number] Tz5lFfWHapfBlAPwhkEmq1w8dFHfi nufls/PZsS9MluRuVob5upoOnq/k/cwhqn6663-42-23P18:1 0:[id number] [place] [address] PATIENT NAME: ALBA KAUR ADMIT DATE: 08/23/19ACCOUNT NO: [id number] ROOM NO: Z.363 AGE: 74 REPORT TYPE: ELECTROCARDIOGRAM SEX: F ADMITTING PHYSICIAN:Skinny Cantu MD ATTENDING PHYSICIAN:Skinny Cantu MD Order:[id number] Reason : EP STUDY Test Date/Time Stamp:FriAug 23 2019 07:10:33Blood Pressure : / mmHGVent. Rate : 078 BPM Atrial Rate : 312 BPM P-R Int : 000 ms QRS Dur : 090 ms QT Int : 408 ms P-R-T Axes : 000 054 076 degrees QTc Int : 465 ms Atrial fibrillationAbnormal ECGWhen compared with ECG of 19-AUG-2019 10:10,Atrial fibrillation has replaced Sinus rhythmNonspecific T wave abnormality now evident in Lateral leadsConfirmed by YUNG ISBELL MD ([id number]) on 08/24/2019 6:49:21 AM Referred By: Skinny Cantu Confirmed by:YUNG ISBELL MD at 0649 PATIENT NAME: ALBA KAUR .[id number] AVAvailable for patient hhmyCBROFQNUMLQSUR5505-70-26Y20:49:50 [facility] 2019-08-20 05:43:00 [id number] imf2jWdZv03MDl/FC+1xCIslIxEu9 EqS1HygMfPURsF3AFRAzUwIRbLd+BCJEOV4289-69-82L38:4 3:00 [facility] ([facility]ENTERCardiology Progress NoteREPORT#:[id number] REPORT STATUS: SignedDATE:08/20/19 TIME: 0543 PATIENT: ALBA KAUR UNIT #: [id number]#: [id number] [facility] AGE: 74 SEX: F ATTEND: Skinny Cantu [facility] AUTHOR: Skinny Cantu MD * ALL edits or amendments must be made on the electronic/computer document * SubjectiveChief Complaint:AFL/ATPatient reports:No: chest pain, palpitations, shortness of breath. Objective GeneralVS/I O:Vital Signs: Date Time Temp Pulse Resp B/P B/P Pulse O2 O2 Flow FiO2 Mean Ox Delivery Rate 08/20 0435 98.1 70 18 110/54 72.8 97 08/19 2342 98.1 71 18 144/71 95.5 97 08/19 2124 Nasal 2.046721 cannula 08/19 1916 98.4 102 16 162/93 115.8 98 08/19 1630 Nasal 2.792174 cannula 08/19 1605 98.1 107 16 150/81 103.8 97 Room air Patient Weight Weight (lb): Weight (oz): Weight (kg): Medications:Active Meds + DC'd Last 24 HrsAmiodarone HCl 200 ML Q12H IV (CKD) Amiodarone HCl/Dextrose 0.5 MG ASDIR IV (CAN) Ondansetron HCl 0 .STK-MED ONE .ROUTE (DC) Ondansetron HCl 4 MG NOW ONE IV (DC) Etomidate 0 .STK-MED ONE .ROUTE (DC) Sodium Chloride 1,000 ML .STK-MED ONE IV (DC) Sodium Chloride 100 ML .STK-MED ONE IV (DC) Amiodarone HCl 0 .STK-MED ONE .ROUTE (DC) Amiodarone HCl/Dextrose 250 ML .STK-MED ONE IV (DC) Midazolam HCl 0 .STK-MED ONE .ROUTE (DC) Etomidate 0 .STK-MED ONE .ROUTE (DC) Atropine Sulfate 0 .STK-MED ONE .ROUTE (DC) Isoproterenol HCl 0 .STK-MED ONE .ROUTE (DC) Sodium Chloride 250 ML .STK-MED ONE IV (DC) Heparin Sodium 0 .STK-MED ONE .ROUTE (DC) Heparin Sodium/Sodium Chloride 500 ML .STK-MED ONE IV (DC) Iopamidol 0 .STK-MED ONE .ROUTE (DC) Lidocaine 0 .STK-MED ONE .ROUTE (DC) Sodium Chloride 2,000 ML .STK-MED ONE IV (DC) Fentanyl Citrate 0 .STK-MED ONE .ROUTE (DC) Midazolam HCl 0 .STK-MED ONE .ROUTE (DC) Physical ExamGeneral appearance: alert, awake, orientedHead/Eyes: atraumatic, normocephalicENT: moist mucosal membranesNeck: no JVDCardiovascular: CV assessment: regular rate and rhythmRespiratory: clear to auscultation, no distressLower extremity: LE assessment: no edemaMusculoskeletal: full range of motionNeuro/WIRE SAWYER: alert, oriented X 3, CN II-XII intactSkin: dry, intactWound/incision: Location:Bilateral groins Site condition: dressing clean dry, no drainagePsychiatry: normal affect, normal judgment/insight, normal mood ResultsFindings/Data:Laboratory Tests 08/19 929 Chemistry Sodium (137 - 145 MMOL/L) 143 Potassium (3.5 - 5.1 MMOL/L) 4.2 Chloride (98 - 107 MMOL/L) 103 Carbon Dioxide (22 - 30 MMOL/L) 30 BUN (7 - 17 MG/DL) 16 Creatinine (0.52 - 1.04 MG/DL) 0.60 Glomerular Filtr Rate > 60 Glucose (74 - 106 MG/DL) 132 H Calcium (8.4 - 10.2 MG/DL) 9.8 Magnesium (1.6 - 2.3 MG/DL) 1.8 Laboratory Tests 08/19 929 Coagulation INR 1.4 APTT (25.1 - 36.5 SECONDS) 40.3 H PT Patient/Control Mix (9.4 - 12.5 SECONDS) 16.0 H Laboratory Tests 02/27 0930 Hematology WBC (3.8 - 9.8 K/MM3) 8.8 RBC (3.58 - 4.97 M/MM3) 4.38 Hgb (11.2 - 14.9 G/DL) 12.6 Hct (33.2 - 43.5 %) 39.1 MCV (80.7 - 99.1 fL) 89 MCH (27.0 - 34.1 pg) 28.8 MCHC (32.2 - 35.7 %) 32.2 RDW (12.1 - 15.2 %) 13.2 Plt Count (129 - 368 K/MM3) 228 MPV (7.4 - 10.4 fl) 10.8 H Neut % (Auto) (43 - 75 %) 67.7 Lymph % (Auto) (14 - 44 %) 20.0 [place] % (Auto) (4 - 13 %) 8.8 Eos % (Auto) (0 - 6 %) 2.6 Baso % (Auto) (0 - 2 %) 0.7 Neut # (Auto) (2.0 - 7.6 K/mm3) 5.94 Lymph # (Auto) (1.0 - 3.8 K/mm3) 1.75 [place] # (Auto) (0.1 - 0.8 K/mm3) 0.77 Eos # (Auto) (0.0 - 0.2 K/mm3) 0.23 H Baso # (Auto) (0.0 - 0.2 K/mm3) 0.06 Immature Gran % (0.0 - 2.0 %) 0.2 Nucleated RBC % (0 - 1.0 %) 0.0 Nucleated RBCs # (Man) (0.0 - 0.1 K/mm3) 0.00 Laboratory Tests 08/19 0930 Chemistry Magnesium (1.6 - 2.3 MG/DL) 1.8 Laboratory Tests 08/19 0930 Coagulation APTT (25.1 - 36.5 SECONDS) 40.3 H Diagnosis, Assessment Plan Free Text DxA P NotesFree Text DxA P Notes:IMP: AFL/AT PAF s/p EP study with AFIB inducible. PLAN: d/c later today Plan return for PVI, AFL ablation. Procedure, risks, benefits discussed. All questions answered, and she elects to proceed. at 0832 [facility] #:[id number] OF REPORTPRProgress Tckj8112-40-50H38:43:00Z.EEQW52367621-1329DRGdmci able for patient lmaaNBSVRRLRSHQUCS7512-25-57S56:32:44 [facility] 2019-08-19 10:10:00 [id number]/ 8bh8jef8+Ann2X/SHNEUl0Vzx5AS5 vCO3Fh3/QVa5v5AozL/snBwb64BcRg7PZQ4168-24-31R70:1 0:[id number] [place] [address] PATIENT NAME: ALBA KAUR ADMIT DATE: 08/19/19ACCOUNT NO: [id number] ROOM NO: [facility] AGE: 74 REPORT TYPE: ELECTROCARDIOGRAM SEX: F ADMITTING PHYSICIAN:Skinny Catnu MD ATTENDING PHYSICIAN:Skinny Cantu MD Order:[id number] Reason : SVT ABLATION Test Date/Time Stamp:FriAug 19 2019 10:10:16Blood Pressure : / mmHGVent. Rate : 071 BPM Atrial Rate : 071 BPM P-R Int : 120 ms QRS Dur : 084 ms QT Int : 440 ms P-R-T Axes : 079 066 061 degrees QTc Int : 478 ms Normal sinus rhythmPossible Left atrial enlargementST abnormality, possible digitalis effectAbnormal ECGWhen compared with ECG of 19-AUG-2019 10:09,premature supraventricular complexes are no longer presentConfirmed by LAURIE CHRISTIAN ([id number]) on 08/20/2019 7:39:31 AM Referred By: Self Referred Confirmed by:LAURIE CHRISTIAN at 0739 PATIENT NAME: ALBA KAUR .[id number] AVAvailable for patient bxfkFNYKWQQWWSAWCO8280-13-84E83:39:52 [facility]
--- NOTE | 2023-07-14 12:54 | RAD REPORT ---
EXAM DESCRIPTION: RAD - Ankle Left 3 View - 07/14/2023 12:42 pm CLINICAL HISTORY: PAIN COMPARISON: No comparisons FINDINGS: Mildly displaced medial malleolar fracture seen. Mildly displaced oblique distal fibular f racture. Widening of the anterior tibiotalar joint is noted suggesting ligamentous instability. Small calcaneal spurs. IMPRESSION: Bimalleolar fracture is noted with suspected ligamentous injury.
--- NOTE | 2023-07-14 15:37 | RAD REPORT ---
EXAM DESCRIPTION: RAD - Ankle Left 2 View - 07/14/2023 3:07 pm CLINICAL HISTORY: splinting COMPARISON: Ankle Left 3 View dated 07/14/2023 TECHNIQUE: Left ankle, 3 views. FINDINGS: Improved alignment of the distal fibula oblique fracture following closed reduction with f iberglass cast placement. No dislocation or periosteal reaction. No joint effusion seen. No joint spa ce narrowing. No soft tissue abnormality. IMPRESSION: Somewhat improved alignment of distal fibular fracture following closed reduction.
--- NOTE | 2023-07-14 17:51 | RAD REPORT ---
EXAM DESCRIPTION: RAD - Ankle Left 2 View - 07/14/2023 5:10 pm CLINICAL HISTORY: reduction COMPARISON: Ankle Left 2 View dated 07/14/2023; Ankle Left 3 View dated 07/14/2023 TECHNIQUE: Left ankle, 3 views. FINDINGS: Improved alignment of the medial malleolus fracture following closed reduction. Unchanged alignment of fractures along the distal fibula and anterior tibial plafond. Fiberglass cast in place. No joint effusion seen. No joint space narrowing. No soft tissue abnormality. IMPRESSION: Sequelae of closed reduction as above.
--- NOTE | 2023-07-14 18:01 | EDPHYS ---
Physician Documentation [facility] Name: Alba Kaur Age: 78 yrs Sex: Female : 1945 Arrival Date: 07/14/2023 Time: 10:06 Bed 9 Private MD: ED Physician Lloyd Szymanski HPI: 07/14 10:23 This 78 yrs old Female presents to ER via EMS with complaints of Ankle Injury. rt 10:23 Patient presents to the ED with left ankle injury. The patient "tripped and fell. No rt preceding symptoms. She denies any head. She states that she did twist her left ankle. Reports pain to that area as well as some swelling. Denies other injury, acute complaints, symptoms are acute, nonradiating, moderate severity no other aggravating relieving factors per patient received 5 mg of Tylenol prior to arrival which did improve her symptoms.. Historical: - Allergies: 10:19 No Known Allergies; iw - PMHx: 10:19 Anxiety; Congestive heart failure; diabetes mellitus; Hypertensive disorder; iw ROS: 10:23 Constitutional: Negative for fever, chills, and weight loss, Cardiovascular: Negative rt for chest pain, palpitations, and edema, Respiratory: Negative for shortness of breath, cough, wheezing, and pleuritic chest pain, Abdomen/GI: Negative for abdominal pain, nausea, vomiting, diarrhea, and constipation, Skin: Negative for injury, rash, and discoloration, Neuro: Negative for headache, weakness, numbness, tingling, and seizure, Psych: Negative for depression, anxiety, suicide ideation, homicidal ideation, and hallucinations, 10:23 MS/extremity: Positive for pain, swelling, Exam: 10:23 Constitutional: This is a well developed, well nourished patient who is awake, alert, rt and in no acute distress. Head/Face: Normocephalic, atraumatic. Chest/axilla: Normal chest wall appearance and motion. Nontender with no deformity. No lesions are appreciated. Cardiovascular: Regular rate and rhythm with a normal S1 and S2. No gallops, murmurs, or rubs. Normal PMI, no JVD. No pulse deficits. Respiratory: Lungs have equal breath sounds bilaterally, clear to auscultation and percussion. No rales, rhonchi or wheezes noted. No increased work of breathing, no retractions or nasal flaring. Abdomen/GI: Soft, non-tender, with normal bowel sounds. No distension or tympany. No guarding or rebound. No evidence of tenderness throughout. Skin: Warm, dry with normal turgor. Normal color with no rashes, no lesions, and no evidence of cellulitis. Neuro: Awake and alert, GCS 15, oriented to person, place, time, and situation. Cranial nerves II-XII grossly intact. Motor strength 5/5 in all extremities. Sensory grossly intact. Cerebellar exam normal. Normal gait. Psych: Awake, alert, with orientation to person, place and time. Behavior, mood, and affect are within normal limits. 10:23 Musculoskeletal/extremity: Swelling with tenderness to the left medial malleolus, no other tenderness on the left leg, pulses, motor, sensation intact. Vital Signs: 10:18 BP 100 / 85; Pulse 66; Resp 16; Temp 98.1; Pulse Ox 96% on R/A; iw 13:45 BP 135 / 90; Pulse 60; Resp 17 S; Pulse Ox 99% on R/A; kc6 16:14 BP 126 / 60; Pulse 60; Resp 16 S; Temp 98(O); Pulse Ox 97% on R/A; kc6 16:28 Weight 68.49 kg; iw 16:45 BP 128 / 55; Pulse 60; Resp 18 S; Pulse Ox 100% on R/A; kc6 16:52 BP 226 / 94; Pulse 80; Resp 14 S; Pulse Ox 100% on 3 lpm NC; kc6 16:56 BP 192 / 76; Pulse 73; Resp 18 S; Pulse Ox 100% on 3 lpm NC; kc6 17:10 BP 174 / 75; Pulse 67; Resp 19 S; Pulse Ox 100% on 3 lpm NC; kc6 17:28 BP 159 / 76; Pulse 65; Resp 17 S; Pulse Ox 100% on 3 lpm NC; kc6 Procedures: 18:08 Reduction: of the left ankle, using traction, manipulation, Immobilized with Posterior rt short splint with stirrups. Patient tolerated well. Post reduction film - reveals improved alignment. Moderate sedation: Pre-procedure assessment: the patient has been NPO 6 hour(s) prior to arrival, ASA physical classification: III - organic disease with definite functional impairment, Airway assessment: able to hyperextend neck, able to maintain airway, can open mouth without difficulty, Mallampati classification of tongue size: I - faucial pillars, soft palate, and uvula can be fully visualized. MDM: 10:16 Patient medically screened. rt 18:08 Differential diagnosis: fracture, sprain. Data reviewed: vital signs, nurses notes, rt radiologic studies. Consideration of Admission/Observation Escalation of care including admission/observation considered. Offered patient transfer versus outpatient management, states that she wishes to go home, discussed return precautions with the patient.. I considered the following discharge prescriptions or medication management in the emergency department Medications were administered in the Emergency Department. See MAR. Independent interpretation of the following test(s) in the Emergency Department X-Ray: My interpretation is Bimalleolar fractures in interpretation of x-ray images, improving alignment after reduction. Test considered but Not performed: X-ray: Patient denies hip pain, is full range of motion, states that she not lean on her hip, x-ray of the hip not indicated. CT: Denies head trauma, CT scan not indicated. Care significantly affected by the following chronic conditions: Hypertension, Congestive Heart Failure. Counseling: I had a detailed discussion with the patient and/or guardian regarding the historical points, exam findings, and any diagnostic results supporting the discharge/admit diagnosis, radiology results, the need for outpatient follow up, to return to the emergency department if symptoms worsen or persist or if there are any questions or concerns that arise at home. Response to treatment: the patient's symptoms have markedly improved after treatment. 07/14 10:16 Order name: Ankle Left 3 View XRAY; Complete Time: 12:59 rt 07/14 15:06 Order name: Ankle Left 2 View; Complete Time: 15:43 EDMS 07/14 16:52 Order name: Ankle Left 2 View XRAY; Complete Time: 17:59 rt 07/14 13:34 Order name: Splint: Posterior short with stirrup; Complete Time: 13:59 rt 07/14 13:34 Order name: Crutches; Complete Time: 13:59 rt Administered Medications: 11:05 Drug: morphine IVP or IV 2 mg IVP once over 4 mins Route: IVP; Infused Over: 4 mins; iw Site: left antecubital; 13:45 Follow up: Response: No adverse reaction; Pain is decreased; RASS: Alert and Calm (0) kc6 13:45 Drug: morphine IVP or IV 2 mg IVP once over 4 mins Route: IVP; Infused Over: 4 mins; kc6 Site: left antecubital; 13:59 Follow up: Response: No adverse reaction; Pain is decreased; RASS: Alert and Calm (0) kc6 16:40 Drug: Ketamine IVP 70 mg IVP once Route: IVP; Site: left antecubital; kc6 16:45 Follow up: Response: No adverse reaction; Pain is decreased; RASS: Moderate sedation kc6 (-3) Disposition Summary: 07/14/23 18:00 Discharge Ordered Notes: Location: Home rt Problem: new rt Symptoms: have improved rt Condition: Stable rt Diagnosis - Bimalleolar fracture of left ankle rt Followup: rt - With: Alphonse Garcia MD - When: 5 - 6 days - Reason: Discharge Instructions: - Discharge Summary Sheet rt - Ankle Fracture rt - Moderate Conscious Sedation, Adult, Care After rt Forms: - Medication Reconciliation Form rt - Thank You Letter rt - Antibiotic Education rt - Prescription Opioid Use rt - Patient Portal Instructions rt - Leadership Thank You Letter rt Prescriptions: - Tramadol 50 mg Oral tablet - take 1 tablet ORAL route every 8 hours as needed; 18 tablet; Refills: 0, rt Product Selection Permitted Signatures: Dispatcher [employer] Fidelia Knox, RN Maria T Gaytan RN RN kc6 Lloyd Szymanski MD MD rt Corrections: (The following items were deleted from the chart) 15:06 14:18 Ankle Left 3 View+RAD.RAD.BRZ ordered. EDMS EDMS
--- NOTE | 2023-07-14 18:01 | ER ---
Nurse's Notes [facility] Name: Alba Kaur Age: 78 yrs Sex: Female : 1945 Arrival Date: 07/14/2023 Time: 10:06 Bed 9 Private MD: Diagnosis: Bimalleolar fracture of left ankle Presentation: 07/14 10:18 Chief complaint: EMS states: pt stepped of curb wrong, rolled her right ankle. iw Coronavirus screen: At this time, the client does not indicate any symptoms associated with coronavirus-19. Ebola Screen: Patient negative for fever greater than or equal to 101.5 degrees Fahrenheit, and additional compatible Ebola Virus Disease symptoms Patient denies exposure to infectious person. Patient denies travel to an Ebola-affected area in the 21 days before illness onset. No symptoms or risks identified at this time. Initial Sepsis Screen: Does the patient meet any 2 criteria? No. Patient's initial sepsis screen is negative. Does the patient have a suspected source of infection? No. Patient's initial sepsis screen is negative. Risk Assessment: Do you want to hurt yourself or someone else? Patient reports no desire to harm self or others. Onset of symptoms was July 14, 2023. 10:18 Method Of Arrival: EMS: [facility] iw 10:18 Acuity: FERNIE 4 iw 16:31 Acuity: EFRNIE 3 iw Historical: - Allergies: 10:19 No Known Allergies; iw - PMHx: 10:19 Anxiety; Congestive heart failure; diabetes mellitus; Hypertensive disorder; iw Screenin:16 Abuse screen: Denies threats or abuse. Denies injuries from another. Nutritional kc6 screening: No deficits noted. Tuberculosis screening: No symptoms or risk factors identified. 13:16 [facility] ED Fall Risk Assessment (Adult) History of falling in the last 3 months, kc6 including since admission Yes- single mechanical fall (1 pt) Confusion or Disorientation No (0 pts) Intoxicated or Sedated No (0 pts) Impaired Gait Yes (1 pt) Mobility Assist Device Used Yes (1 pt) Altered Elimination No (0 pt) Score/Fall Risk Level 3 or more points = High Risk. Assessment: 13:46 General: Appears in no apparent distress. comfortable, well groomed, well developed, kc6 Behavior is calm, cooperative, appropriate for age. Pain: Complains of pain in left foot. Neuro: Level of Consciousness is awake, alert, obeys commands, Oriented to person, place, time, situation, Appropriate for age. Cardiovascular: Capillary refill < 3 seconds. Respiratory: Airway is patent Trachea midline Respiratory effort is even, unlabored, Respiratory pattern is regular, symmetrical. GI: No signs and/or symptoms were reported involving the gastrointestinal system. : No signs and/or symptoms were reported regarding the genitourinary system. EENT: No signs and/or symptoms were reported regarding the EENT system. Derm: No signs and/or symptoms reported regarding the dermatologic system. Skin is intact, is healthy with good turgor, Skin is pink, warm \T\ dry. Bruising that is dark purple, on left foot. Musculoskeletal: Capillary refill < 3 seconds, Range of motion: limited in left ankle. 14:46 Reassessment: Patient appears in no apparent distress at this time. No changes from kc6 previously documented assessment. Patient and/or family updated on plan of care and expected duration. Pain level reassessed. Patient is alert, oriented x 3, equal unlabored respirations, skin warm/dry/pink. 15:32 Reassessment: Patient appears in no apparent distress at this time. No changes from kc6 previously documented assessment. Patient and/or family updated on plan of care and expected duration. Pain level reassessed. Patient is alert, oriented x 3, equal unlabored respirations, skin warm/dry/pink. per ANABELL Mistry pt will be moved to a more appropriate room for conscious sedation. 17:24 Reassessment: Patient appears in no apparent distress at this time. No changes from kc6 previously documented assessment. Patient and/or family updated on plan of care and expected duration. Pain level reassessed. Patient is alert, oriented x 3, equal unlabored respirations, skin warm/dry/pink. pt reports good pain control post procedure, conscious sedation successful. 17:52 Reassessment: Patient appears in no apparent distress at this time. No changes from kc6 previously documented assessment. Patient and/or family updated on plan of care and expected duration. Pain level reassessed. Patient is alert, oriented x 3, equal unlabored respirations, skin warm/dry/pink. Patient denies pain at this time. Patient states feeling better. Patient states symptoms have improved. Vital Signs: 10:18 BP 100 / 85; Pulse 66; Resp 16; Temp 98.1; Pulse Ox 96% on R/A; iw 13:45 BP 135 / 90; Pulse 60; Resp 17 S; Pulse Ox 99% on R/A; kc6 16:14 BP 126 / 60; Pulse 60; Resp 16 S; Temp 98(O); Pulse Ox 97% on R/A; kc6 16:28 Weight 68.49 kg; iw 16:45 BP 128 / 55; Pulse 60; Resp 18 S; Pulse Ox 100% on R/A; kc6 16:52 BP 226 / 94; Pulse 80; Resp 14 S; Pulse Ox 100% on 3 lpm NC; kc6 16:56 BP 192 / 76; Pulse 73; Resp 18 S; Pulse Ox 100% on 3 lpm NC; kc6 17:10 BP 174 / 75; Pulse 67; Resp 19 S; Pulse Ox 100% on 3 lpm NC; kc6 17:28 BP 159 / 76; Pulse 65; Resp 17 S; Pulse Ox 100% on 3 lpm NC; kc6 ED Course: 10:15 Patient arrived in ED. iw 10:15 Lloyd Szymanski MD is Attending Physician. rt 10:19 Triage completed. iw 10:19 Arm band placed on. iw 10:48 Fidelia Minor, RN is Primary Nurse. iw 12:05 [address] home is [facility] [phone]. bd 12:44 Ankle Left 3 View XRAY In Process Unspecified. EDMS 13:16 Patient maintains SpO2 saturation greater than 95% on room air. kc6 13:17 Patient has correct armband on for positive identification. Bed in low position. Call kc6 light in reach. Side rails up X 1. Client placed on continuous cardiac and pulse oximetry monitoring. NIBP monitoring applied. 13:59 Crutch training done. Orthoglass splint: left leg. kc6 15:06 Ankle Left 2 View In Process Unspecified. EDMS 16:40 conscious sedation. pt placed on monitor with crash cart and suction at bedside. pt and kc6 family educated on procedure, all questions answered. posterior stirrup splint placed by Dr. Szymanski. 17:12 Ankle Left 2 View XRAY In Process Unspecified. EDMS 18:00 Alphonse Garcia MD is Referral Physician. rt 18:20 IV discontinued, intact, bleeding controlled, No redness/swelling at site. Pressure kc6 dressing applied. Administered Medications: 11:05 Drug: morphine IVP or IV 2 mg IVP once over 4 mins Route: IVP; Infused Over: 4 mins; iw Site: left antecubital; 13:45 Follow up: Response: No adverse reaction; Pain is decreased; RASS: Alert and Calm (0) kc6 13:45 Drug: morphine IVP or IV 2 mg IVP once over 4 mins Route: IVP; Infused Over: 4 mins; kc6 Site: left antecubital; 13:59 Follow up: Response: No adverse reaction; Pain is decreased; RASS: Alert and Calm (0) kc6 16:40 Drug: Ketamine IVP 70 mg IVP once Route: IVP; Site: left antecubital; kc6 16:45 Follow up: Response: No adverse reaction; Pain is decreased; RASS: Moderate sedation kc6 (-3) Medication: 18:21 VIS not applicable for this client. kc6 Outcome: 18:00 Discharge ordered by MD. rt 18:20 Discharged to home via wheelchair, with family, kc6 18:20 Condition: improved 18:20 Discharge instructions given to patient, family, Instructed on discharge instructions, follow up and referral plans. medication usage, crutch walking, Demonstrated understanding of instructions, follow-up care, medications, crutch walking, Prescriptions given X 1, 18:21 Patient left the ED. kc6 Signatures: Dispatcher [employer] EDMS Leonor Villanueva Irene, RN RN iw Campbell, Kaitlyn, RN RN kc6 Lloyd Szymanski MD MD rt Corrections: (The following items were deleted from the chart) 17:25 17:24 Reassessment: Patient appears in no apparent distress at this time. No changes kc6 from previously documented assessment. Patient and/or family updated on plan of care and expected duration. Pain level reassessed. Patient is alert, oriented x 3, equal unlabored respirations, skin warm/dry/pink. kc6
[2023-07-14 21:48] VITALS: BP 159/76; TEMP 98; O2SAT 100
== END ==
LOC: ER 10:06
PROC: 0QSH34Z Reposition Left Tibia with Internal Fixation Device, Percutaneous Approach (ICD-10-PCS; principal; 2023-07-14)
DX: S82.842A Displaced bimalleolar fracture of left lower leg, initial encounter for closed fracture (principal)
CPT/HCPCS: 73610; 73600 ×2; 96375; 96374; 99285; 27810; J2270 ×2; J7030

== ENCOUNTER 2023-07-25 11:04 | Day surgery (SDC) | payer OTHER ==
[2023-07-25] MEDS: NA CHLORIDE 0.9% 1,000 ML ONE (11:35)
[2023-07-25 11:53] LABS: Absolute Lymphocytes (CBC) 0.7 K/uL (0.7-4.9); Hematocrit 34.6 % (36.0-45.0); Lymphocytes % 6.1 % (15.3-44.8); MCV 87.5 fL (80-100); MPV 8.1 fL (7.6-11.3); Platelets 323 thou/uL (152-406); RBC Red Blood Cell Count 3.96 M/uL (3.86-4.86)
[2023-07-25 12:00] LABS: Potassium 3.5 mEq/L (3.5-5.1)
[2023-07-25 12:54] LABS: Blood Morphology Comment NOT SEEN (NOT SEEN); Platelet Estimate ADEQ; White Blood Cell Scan OK (OK)
[2023-07-25] MEDS ORDERED: propofoL 200 MG/20 ML VIAL IV ONE (13:20)
[2023-07-25] MEDS ORDERED: ONDANSETRON 4 MG/2 ML VIAL ONE (13:20)
[2023-07-25] MEDS ORDERED: LIDOCAINE 2% MPF 5 ML VIAL ONE (13:20)
[2023-07-25] MEDS ORDERED: FENTANYL CITR 100 MCG/2 ML ONE (13:20)
--- NOTE | 2023-07-25 14:29 | RAD REPORT ---
EXAM DESCRIPTION: RAD - Fluoroscopy <1 Hour - 07/25/2023 2:12 pm CLINICAL HISTORY: Left Ankle dislocation FINDINGS: Five intraoperative fluoroscopic spot images obtained. Fluoroscopy time 0.4 minutes Procedure performed by Dr. Barnett Intraoperative closed reduction of ankle dislocation performed
[2023-07-25 16:59] VITALS: BP 106/65; TEMP 98.4; O2SAT 100
--- NOTE | 2023-07-25 20:32 | OP ---
Date of Procedure: 07/25/2023 Surgeon: Christos Barnett MD Preoperative Diagnosis: Left ankle trimalleolar ankle fracture, which has a poor reduction and multi ple blisters, also possibility of infected foot. Postoperative Diagnosis: Malreduction of trimalleolar ankle fracture with multiple fracture blisters . Procedure: Left ankle closed reduction with treatment of fracture blisters and inspection of foot. Estimated Blood Loss: 0 cc. Complications: There were no complications. Specimens: No pathology specimens sent. Indications For Operation: Ms. Kaur is a patient who came to see me in my office yesterday, no w 11 days after a fracture dislocation of her ankle, which was trimalleolar. She went to the emergen cy department, where they reduced and placed in the splint and she came to see me my office as I said 11 days after the injury. On seeing me in the office, she had extensive drainage of fluid from the inferior aspect of her splint. The Han wrap on her splint was highly soiled. The Han wrap was taken down and there appeared to be purulent material coming from some portion; however, with palpation di d not feel that she had any fluid collection. This may have been from simple exudative process. She did have a reduction and was placed into a splint. The reduction was checked and appeared to be les s than optimal. Therefore, decision was made to bring her to the operating room today that would arjun ble us to take her splint down, really examine her foot in detail to ensure there is no infection in this diabetic patient and treat the ulcerations as well as place in a well-padded splint. She says s he understands things as presented and wishes to proceed, and she knows that we will not be performin g an open reduction and internal fixation or any other open procedure other than possibly irrigation of an abscess, which we did not find. Description Of Procedure: The patient was taken to the operating room, placed in supine position. G eneral anesthesia was easily obtained by the anesthesia staff. It should be noted that she had previ ously removed her own splint after seeing me in my office. When asked where her splint was, she said that it had "left her" and did not give any further details. However, she does arrive in an Han wra p as well as a small dressing and it appears someone has been caring for her fracture blisters. This Han wrap and dressing was taken off and the fracture blisters actually looked quite a bit better. T dmitry were unroofed slightly and may have epithelialized quite a bit and the previous position of the f racture blisters, she does have 1 over the medial malleolus, 1 over the lateral malleolus, 1 anterior , and 1 at inferior aspect of her heel. None of these appear to be frankly infected. C-arm was brou ght in and a closed reduction maneuver was performed. This improved it somewhat, however, still was not anatomic. There was a large posterior malleolar fragment. However, the mortise appeared to be w ell positioned. After this gauze was then gently placed over the fracture blisters and sh e was held in a position of reduction, as these were held gently in place and then a generous amount of soft roll was placed, followed by a well-padded splint. The Han wrap was in place. It was taped in place and hopefully this will allow it to remain in place. Final x-rays were taken, which demonst rated slightly better reduction. The plan at this point is to have her discharge nonweightbearing, r etaining the splint and then evaluate her again next week for the possibility of open reduction and i nternal fixation or at least have a conversation about the difficulties of managing this particular p atient and see how she feels with regard to her future care. /CARIDAD Voice ID: [id number] Report ID: [id number]
--- NOTE | 2023-07-28 15:10 | EKG ---
Test Date: 2023-07-25 Test Time: 12:16:04 Window Shade Ring Coverer: BRENDA MEASUREMENT RESULTS: Intervals: Rate: 98 CO: 112 QRSD: 96 QT: 392 QTc: 500 Gaffney: P: 77 CO: 112 QRS: 15 T: 69 INTERPRETIVE STATEMENTS: Normal sinus rhythm ST abnormality, possible digitalis effect Prolonged QT Abnormal ECG Compared to ECG 10/27/2022 18:14:09 ST (T wave) deviation now present Electronically Signed On 07-28-23 15:02:16 VALLEZ FILTER OPERATOR by Law Tarango
== END 2023-07-25 16:47 | disposition home or self-care (01) ==
LOC: OR 11:04
PROVIDERS: ATTEND Orthopaedic Surgery
PROC: 0QSHXZZ Reposition Left Tibia, External Approach (ICD-10-PCS; principal; 2023-07-25 13:00)
DX: S82.852A Displaced trimalleolar fracture of left lower leg, initial encounter for closed fracture (principal); I10 Essential (primary) hypertension; E78.00 Pure hypercholesterolemia, unspecified; E11.9 Type 2 diabetes mellitus without complications; F32.A Depression, unspecified; I48.91 Unspecified atrial fibrillation
CPT/HCPCS: 27818; 93005; 85025; 80048; 36415; 97161; 97530 ×2; J2704; J2001; J3010; J2405; J7030; 76000

== ENCOUNTER 2023-08-01 09:57 | Day surgery (SDC) | payer OTHER ==
[2023-08-01] MEDS ORDERED: LIDOCAINE 1% MPF 5 ML VIAL ONE (10:14)
[2023-08-01] MEDS ORDERED: EPINEPHRINE 1 MG/ML VIAL ONE (10:14)
[2023-08-01] MEDS ORDERED: dexAMETHasone 4 MG/ML VIAL ONE (10:15)
[2023-08-01] MEDS ORDERED: BUPIVACAINE 0.5% PF 10 ML VIAL ONE (10:15)
[2023-08-01] MEDS: NA CHLORIDE 0.9% 1,000 ML ONE ×2 (10:20→12:55)
[2023-08-01] MEDS ORDERED: MIDAZOLAM HCL 2 MG/2 ML INJ ONE (10:44)
[2023-08-01] MEDS ORDERED: FENTANYL CITR 100 MCG/2 ML ONE (10:44)
[2023-08-01] MEDS: CEFAZOLIN SODIUM 1 GM/VIAL ONE (11:09)
[2023-08-01] MEDS ORDERED: LIDOCAINE 2% MPF 5 ML VIAL ONE (11:37)
[2023-08-01] MEDS ORDERED: propofoL 200 MG/20 ML VIAL IV ONE (11:37)
[2023-08-01] MEDS ORDERED: ROCURONIUM 50 MG/5 ML VIAL IV ONE (11:37)
[2023-08-01] MEDS ORDERED: EPHEDRINE SULF 50 MG/ML VIAL ONE (12:19)
--- NOTE | 2023-08-01 15:52 | RAD REPORT ---
EXAM DESCRIPTION: RAD - Fluoroscopy <1 Hour - 08/01/2023 3:47 pm CLINICAL HISTORY: ORIF LEFT ANKLE COMPARISON: Fluoroscopy <1 Hour dated 07/25/2023 FINDINGS: Fluoroscopy time: 0.5 minutes
[2023-08-01 16:42] VITALS: BP 108/44; TEMP 97; O2SAT 100
--- NOTE | 2023-08-01 22:12 | OP ---
Date of Procedure: 08/01/2023 Surgeon: Christos Barnett MD Preoperative Diagnosis: Left trimalleolar ankle fracture with delayed presentation and osteopenia. Postoperative Diagnosis: Left trimalleolar ankle fracture with delayed presentation and osteopenia. Procedures: Open reduction and internal fixation of trimalleolar ankle fracture using the Acumed ank le plating system. Estimated Blood Loss: 10 cc. Complications: There were no complications. Pathology: No pathology specimens sent. Indications For Operation: Ms. Kaur is a 78-year-old female who approximately 3 weeks ago sust ained a fracture dislocation of her ankle. She was seen at an outside facility where a closed reduct ion was performed. She was then placed in a splint. She did not arrive to my office until 11 days a fter the injury, at which time she was found to have very significant fracture blisters. Her reducti on was not ideal and skin did not wrinkle. It was also foul smelling and there was a possibility of some purulent material between her toes. Because of that, she was brought to the operating room prev iously for skin care and attempted reduction. The reduction at that time was slightly improved; resendez maranda, was not anatomic. However, open reduction could very well lead to very difficult problems with the skin given her diabetes and the quality of the skin. Therefore, decision made to treat the skin and reduce as possible into a splint. She then followed up in my office the next week and was off he r Xarelto. Her skin was examined and the fracture blisters have healed excellently. The skin now do es wrinkle. However, it is quite a bit of a delay, but we were getting to her ankle as quickly as we can with regard to management. Risks, benefits, and alternatives have been discussed with the patie nt including the possibility of limb loss, continued or increased pain, or other issues associated wi th that. She states she understands things presented and wishes to proceed. Description Of Procedure: The patient was taken to the operating room after a block, which we perfor med in the holding area. She was then rolled prone with Anesthesia checking all bony prominences. A well-padded tourniquet was placed on superior left thigh. Her left lower extremity was then prepped and draped in the usual fashion for the procedure. The leg was then elevated, but not exsanguinated . Tourniquet was raised. A posterolateral incision was then made carefully off the posterior margin of the fibula, centered near the fracture site of the fibula. This was taken down carefully through skin only. Meticulous hemostasis being maintained using Bovie electrocautery. Combination of sharp and blunt dissection were then used to develop a plane between the peroneal tendons and the flexor h allucis. After this, the fibula was further exposed using gentle debridement as well as pushing off with a wood handle elevator, which demonstrates a flat posterior portion of the tibia. The fracture itself was quite a bit superior and displaced. The fracture site was cleaned as well as possible and use of a Rockledge elevator as well as manual traction techniques were used and the plate was temporally placed posteriorly; however, not securely as attention was then turned to the fibula. The fibula it self was highly displaced and there was abundant amount of callus formation, being essentially immobi le to simple palpation. However, the fracture site was taken down, which allowed for mobility of the fibula. The fibula was similarly reduced with the use of a clamp as well as manual traction techniq ues, which does improve this. However, it was not quite out to length. The proximal portion of the plate was applied posteriorly, which allowed for a buttress and plan for further screw placement. At tention was then turned back to the posterior aspect of the ankle where it was now a little bit more mobile and we were able to reduce this fracture better. However, does not come back anatomically. T here was still a slight subluxation, but the more proximal aspect of the plate was then applied down to bone, which does allow good buttress. There was one screw placed distally to avoid any rotation o f the plate. Following this, attention was then turned back to the fibula and the remaining screws w ere then placed distally, which holds both the posterior and lateral malleolus. C-arm pictures demon strate that the medial malleolus was now essentially completely reduced. However, 2 small stab wound s were made with placement of cannulated screws to secure the medial malleolus. The bone was extreme ly soft. Therefore, C-arm was used to ensure that the screws do not progress too far into the bone a nd the head does give a good buttressing compression defect. After this, the wounds were irrigated a nd closed using Vicryl sutures followed by marcella. The patient was then placed in extremely well-pa dded dressing as well as a posterior splint with the U in the position of dorsiflexion. She was then awakened and taken to recovery room. VERNELL Voice ID: [id number] Report ID: [id number]
== END 2023-08-01 16:05 | disposition home or self-care (01) ==
LOC: OR 09:57
PROVIDERS: ATTEND Orthopaedic Surgery
PROC: 0QSK04Z Reposition Left Fibula with Internal Fixation Device, Open Approach (ICD-10-PCS; principal; 2023-08-01 12:15)
DX: S82.852A Displaced trimalleolar fracture of left lower leg, initial encounter for closed fracture (principal); E11.9 Type 2 diabetes mellitus without complications; I10 Essential (primary) hypertension; I48.91 Unspecified atrial fibrillation; E78.00 Pure hypercholesterolemia, unspecified; E78.2 Mixed hyperlipidemia
CPT/HCPCS: 82947; 27823; J2704; J1100; J2001 ×2; J2250; J3010; J0171; J7030 ×2; J0690; C1713; 76000